=== PATIENT | male | born 1960 | race Caucasian/White ===

== ENCOUNTER 2017-04-23 21:14 | Emergency (ER) | payer MEDICARE, MEDICAID ==
[2017-04-23 21:35] VITALS: BP 144/87
[2017-04-23] MEDS ORDERED: Albuterol/Ipratropium NEB.SOL* Albuterol 2.5 MG/Ipratropium 0.5 MG 3 ML INH ONE (21:39)
[2017-04-23 22:01] LABS: Hematocrit 40 % (42-52); Hemoglobin 13.5 g/dl (14.0-18.0); Mean Corpuscular HGB Conc 34 g/dl (31-36); Mean Corpuscular Hemoglobin 29 pg (27-31); Mean Corpuscular Volume 87 fL (80-94); Mean Platelet Volume 8 um3 (7.4-10.4); Red Blood Count 4.61 10^6/ul (4.0-5.4); Red Cell Distribution Width 15 % (10.5-15); White Blood Count 7.2 10^3/ul (3.5-10.8)
[2017-04-23 22:03] LABS: Urine Bilirubin Negative (Negative); Urine Glucose 3+(>=500 mg/dL) (Negative); Urine Nitrite Negative (Negative)
[2017-04-23 22:11] LABS: ALT 7 U/L (7-52); AST 17 U/L (13-39); Albumin 4.5 g/dL (3.2-5.2); Alkaline Phosphatase 96 U/L (34-104); Anion Gap 11 mmol/L (2-11); BUN/Creatinine Ratio 8.1 (8-20); Blood Urea Nitrogen 8 mg/dL (6-24); CO2 Carbon Dioxide 22 mmol/L (22-32); Calcium 8.7 mg/dL (8.6-10.3); Chloride 98 mmol/L (101-111); EGFR African American 100.6 (>60); EGFR Non-African American 78.2 (>60); Globulin 2.9 g/dL (2-4); Glucose 241 mg/dL (70-100); Potassium 3.8 mmol/L (3.5-5.0); Sodium 131 mmol/L (133-145); Total Protein 7.4 g/dL (6.4-8.9)
[2017-04-23 22:14] LABS: Acetaminophen < 15 mcg/mL; Alcohol 156 mg/dL (<10); Salicylate < 2.50 mg/dL (<30)
[2017-04-23 22:17] LABS: Benzodiazepine Urine Screen None Detected (None Detect)
[2017-04-23 22:24] LABS: TSH (Thyroid Stimulating Horm) 2.04 mcIU/mL (0.34-5.60)
--- NOTE | 2017-04-24 00:57 | ED ---
Rio Rush Angela, scribed for Luis F Lew on 04/23/17 at 2133 . Psychiatric Complaint - HPI Summary HPI Summary: This pt is a 56 y/o male BIBA for a 941 presenting to [facility] c/o SI today. Pt notes his symptoms are aggravated because he "learned about his aunt, she's dying." His mother is also "about to ." He is unable to describe what he is feeling now when asked if he is depressed. He drinks beer, but not everyday. PMHx: bipolar disorder, diabetes. Pt currently takes prozac and diazepam. - History Of Current Complaint Chief Complaint: EDMentalHealth Time Seen by Provider: 04/23/17 21:23 Hx Obtained From: Patient Onset/Duration: Lasting Days Timing: Days Character: Depressed Aggravating Factor(s): Recent Stress Has Suicidal: Reports: Thoughts - Allergies/Home Medications Allergies/Adverse Reactions: Allergies Allergy/AdvReac Type Severity Reaction Status Date / Time Ibuprofen Allergy Unknown Unknown Verified 04/18/17 08:52 Reaction Details Lidocaine [From Lidoderm] Allergy Unknown Verified 04/18/17 08:52 Reaction Details PMH/Surg Hx/FS Hx/Imm Hx Endocrine/Hematology History: Reports: Hx Diabetes Cardiovascular History: Denies: Hx Pacemaker/ICD Sensory History: Denies: Hx Hearing Aid Psychiatric History: Reports: Hx Panic Disorder, Hx Bipolar Disorder, Other Psychiatric Issues/Disorders - Agoraphobia - Family History Known Family History: Positive: Cardiac Disease - Father: coronary artery disease, [place] at age 65, Diabetes - mother, Other - Brother: leukemia - Social History Alcohol Use: None Substance Use Type: Reports: None Substance Use Comment - Amount & Last Used: Tramadol Smoking Status (MU): Current Every Day Smoker Type: Cigarettes Amount Used/How Often: 2 PPD Have You Smoked in the Last Year: Yes Review of Systems Negative: Fever, Chills Eyes: Negative Negative: Chest Pain Negative: Shortness Of Breath Genitourinary: Negative Musculoskeletal: Negative Skin: Negative Positive: Depressed, Other - SI All Other Systems Reviewed And Are Negative: Yes Physical Exam Triage Information Reviewed: Yes Vital Signs On Initial Exam: Initial Vitals Temp Pulse Resp BP Pulse Ox 98.6 F 81 18 144/87 98 04/23/17 21:32 04/23/17 21:32 04/23/17 21:32 04/23/17 21:32 04/23/17 21:32 Vital Signs Reviewed: Yes Appearance: Positive: Well-Appearing, No Pain Distress Skin: Positive: Warm, Skin Color Reflects Adequate Perfusion, Dry Head/Face: Positive: Normal Head/Face Inspection Eyes: Positive: EOMI, KAYLEIGH ENT: Positive: Normal ENT inspection Neck: Positive: Supple, Nontender Respiratory/Lung Sounds: Positive: Breath Sounds Present, Other - wheezing on the left Cardiovascular: Positive: RRR, Pulses are Symmetrical in both Upper and Lower Extremities Abdomen Description: Positive: Nontender, Soft Bowel Sounds: Positive: Present Musculoskeletal: Positive: Normal, Strength/ROM Intact Neurological: Positive: Normal, Sensory/Motor Intact, Alert, Oriented to Person Place, Time Psychiatric: Positive: Depressed - depressed look Diagnostics - Laboratory Result Diagrams: 04/23/17 21:35 04/23/17 21:35 Lab Statement: Any lab studies that have been ordered have been reviewed, and results considered in the medical decision making process. Course/Dx - Course Assessment/Plan: Pt is a 56 y/o male BIBA for a 941 presenting to [facility] c/o SI today. Bloodwork was obtained. Serum alcohol of 156. Pt is medically cleared at 0013. Pt is pending MHE. Pt will be signed out at shift change, pending dispostion, awaiting MHE. - Differential Dx/Clinical Impression Provider Diagnosis: Suicidal ideation, Depression, Alcohol intoxication Discharge - Discharge Plan Condition: Stable Disposition: OTHER Discharge Disposition Comment: signed out at shift change, pending dispo, awaiting MHE. Referrals: Leroy Mcclendon MD [Primary Care Provider] - The documentation as recorded by the Rio pedraza Angela accurately reflects the service I personally performed and the decisions made by , Luis F Lew.
--- NOTE | 2017-04-24 01:30 | ED ---
Progress - Progress Note Progress Note: pt seen by mental health sent home in stable condition - Consult/PCP Time Called: 11:00 Course/Dx - Diagnoses Provider Diagnoses: Suicidal ideation, Depression, Alcohol intoxication
== END 2017-04-24 02:05 ==
LOC: ED 21:14
DX: R45.851 Suicidal ideations (principal); F32.9 Major depressive disorder, single episode, unspecified; F10.129 Alcohol abuse with intoxication, unspecified
CPT/HCPCS: 36415; 80053; 80307; 80320; 80329; 81003; 84443; 85025; 99284; A9270-GY; G0480

== ENCOUNTER → 2019-06-26 10:37 | Day surgery (SDC) | payer MEDICARE, MEDICAID ==
[~2019-06-26 10:37] MED LIST: Benzocaine/Butamben/Tetracain (CETACAINE - SINGLE USE) 5 gm TOPICAL ONE; Buffered Lidocaine 1% SYRIN* 1 ML/SYRINGE INTRADERM ONE; Dexamethasone IV* 4 MG/ML 1 ML (4 MG) ONE; DiMENhydriNATE IV* 50 MG/ML VIAL IV PUSH PRN; HYDROmorphone INJ1* 1 MG/ML SYRINGE IV PRN; Lactated Ringers 1000 ML Bag* 1,000 ML IV SCH; Levalbuterol 1.25MG/0.5ML NEB INH PRN; Levalbuterol 1.25MG/0.5ML NEB ONE; Midazolam* 1 MG/ML 5 ML VIAL (5 MG) ONE; Naloxone* 0.4 MG/ML 1 ML VIAL IV PRN; Neostigmine Methylsulfate* 3 MG/3 ML SYRINGE ONE; Ondansetron INJ* 2 MG/ML VIAL IV PRN; Ondansetron INJ* 2 MG/ML VIAL ONE; Propofol* 10 MG/ML 20 ML BTL ONE; Rocuronium* 10 MG/ML VIAL ONE; Scopolamine 1.5 mg* PATCH TRANSDERM PRN; Scopolamine PATCH Remove* 1 NOTE MISC PATCH OFF ONE; fentaNYL* 50 MCG/ML 2 ML VIAL (100 MCG VIAL) IV PRN; fentaNYL* 50 MCG/ML 2 ML VIAL (100 MCG VIAL) ONE
[2019-06-26 15:42] VITALS: BP 118/68
--- NOTE | 2019-06-26 16:51 | BRIEFOPN ---
Brief Operative/Procedure Note - Operation Details Pre-Op Diagnosis: PET positive l;ymph nodes, pulm nodules Post-Op Diagnosis: Malignancy, undiffentiated Procedures: Bronchoscopy/EBUS Surgeon(s)/Proceduralists: ishaan Anesthesia: [place]- Dr Deshpande Estimated Blood Loss: Negligable Findings: NO endobronchial lesion. Station 7, R4, L12 negative for metastatic disease. L4 positive for malignant cells Specimen(s)/Culture(s) Description: Cytology from lymph nodes Complications: None
--- NOTE | 2019-06-26 20:47 | PRO ---
BRONCHOSCOPY REPORT: DATE OF PROCEDURE: 06/26/19 PROCEDURE PERFORMED: Bronchoscopy with endobronchial ultrasound guided fine needle aspiration from mediastinal hilar nodes. PREPROCEDURAL DIAGNOSIS: PET positive lymph nodes pulmonary nodules. POSTPROCEDURAL DIAGNOSIS: Malignant cells noted in L4 node. ANESTHESIA: General anesthesia. ANESTHESIOLOGIST: Dr. Deshpande. DESCRIPTION OF PROCEDURE: Informed consent was obtained from the patient prior to the procedure after all the risks and benefits were thoroughly explained. The patient was intubated with size a 9.0 endotracheal tube. Appropriate time out was agreed on by attending staff prior to the procedure. Flexible Olympus bronchoscope was inserted through ET tube for airway inspection. The patient noted to have thin white secretions and were suctioned out. No endobronchial lesions were noted. Bronchoscope was then withdrawn and EBUS bronchoscope was inserted. Station 7 was mildly enlarged and was sampled with 2 passes. Rapid onsite evaluation revealed lymphatic tissue with no malignant cells. R4 was minimally enlarged and was sampled with 2 passes. Rapid onsite evaluation revealed lymphatic tissue with no malignant cells. R10 to 14 nodes were not enlarged and were not accessed. Bronchoscope was then advanced into the left bronchial tree and L12 was sampled with 1 pass. Rapid onsite evaluation revealed lymphatic tissue with no malignant cells. Bronchoscope was then advanced into L4 area and was sampled with 4 passes. Rapid onsite evaluation revealed malignant cells. Air dried cells were also prepared. Rest of the specimen was placed in formalin. The patient tolerated the procedure well. The patient was extubated and seen in Recovery in optimal condition. [id number]/[facility] #: [id number] [facility]
== END | disposition home or self-care (01) ==
LOC: OR 10:37
PROVIDERS: ATTEND Internal Medicine
DX: C77.1 Secondary and unspecified malignant neoplasm of intrathoracic lymph nodes (principal); J98.4 Other disorders of lung; J44.9 Chronic obstructive pulmonary disease, unspecified; K21.9 Gastro-esophageal reflux disease without esophagitis; E03.9 Hypothyroidism, unspecified; I10 Essential (primary) hypertension; E66.9 Obesity, unspecified; E11.9 Type 2 diabetes mellitus without complications; Z79.4 Long term (current) use of insulin; Z79.84 Long term (current) use of oral hypoglycemic drugs; F17.210 Nicotine dependence, cigarettes, uncomplicated; Z99.81 Dependence on supplemental oxygen; F41.8 Other specified anxiety disorders
CPT/HCPCS: 88172; 88173; 88305; 88341; 88342; 88360; A9270-GY; J1100; J2250; J2405; J2704; J2710; J3010

== ENCOUNTER 2019-09-17 04:05 | Emergency (ER) | payer MEDICARE, MEDICAID ==
[2019-09-17] MEDS ORDERED: HYDROmorphone INJ1* 1 MG/ML SYRINGE IV SLOW PU ONE (04:09)
--- NOTE | 2019-09-17 04:21 | ED ---
Back Pain - HPI Summary HPI Summary: This pt is a 58 Y/O M presenting to [facility] with a CC of spinal pain that extends from his cervical spine to his sacrum. He states that he has had the pain since his second round of cancer and states that the pain is constant after the radiation and chemotherapy. He states that he had chemo last week and radiation on 09/17/2019. He states that the pain is rated a 10/10 in severity and is constant. He also states that he feels a lump in the back of his throat that has been worsening recently. He denies any alleviating factors including his fentanyl patches and states that they wont even touch the pain. He had a PET scan in May which showed an upper L lobe mass and a L lymphadenopathy which was concerning for metastatic disease. He denies any recent fevers, chills , headaches, N/V, and SOB. He has a PMHx of L lobe CA and diabetic neuropathy. - History of Current Complaint Chief Complaint: EDBackInjuryPain Stated Complaint: BACK PAIN PER EMS Time Seen by Provider: 09/17/19 04:17 Hx Obtained From: Patient Onset/Duration: Gradual Onset, Still Present Timing: Constant Back Pain Location: Is Discrete @ - midline, states that the pain extends down his spine Severity Initially: Severe Severity Currently: Severe Pain Intensity: 10 Pain Scale Used: 0-10 Numeric Aggravating Symptom(s): Nothing Alleviating Symptom(s): Nothing Associated Signs And Symptoms: Positive: Negative - fevers, chills, headaches, N /V, and SOB., Other - Back pain,. Negative: Fever - Allergies/Home Medications Allergies/Adverse Reactions: Allergies Allergy/AdvReac Type Severity Reaction Status Date / Time nabumetone Allergy Severe Abdominal Verified 09/17/19 04:21 cramps and nausea ibuprofen Allergy Bleeding Verified 09/17/19 04:21 lidocaine [From Lidoderm] Allergy Rash Verified 09/17/19 04:21 PMH/Surg Hx/FS Hx/Imm Hx Endocrine/Hematology History: Reports: Hx Diabetes - on medication-Insulin dependent Cardiovascular History: Reports: Hx Hypertension - on medication, Other Cardiovascular Problems/Disorders - Dyslipidemia Denies: Hx Pacemaker/ICD Respiratory History: Reports: Hx Asthma, Hx Sleep Apnea, Other Respiratory Problems/Disorders - Abnormal CT, uses oxygen at night 2 l at night Denies: Hx Pulmonary Edema GI History: Reports: Hx Gastroesophageal Reflux Disease - on medication, Other GI Disorders - History of pancreatitis per H&P History: Reports: Hx Kidney Stones - 6 months ago-passed on own Denies: Hx Renal Disease, Other Problems/Disorders Musculoskeletal History: Reports: Hx Arthritis Denies: Other Musculoskeletal History Sensory History: Reports: Hx Contacts or Glasses - Glasses Denies: Hx Hearing Aid Opthamlomology History: Reports: Hx Contacts or Glasses - Glasses Neurological History: Reports: Hx Headaches, Hx Nerve Disease - Neuropathy Denies: Hx Migraine, Hx Seizures, Other Neuro Impairments/Disorders Psychiatric History: Reports: Hx Anxiety, Hx Depression, Hx Panic Disorder - FENTYNAL, Hx Bipolar Disorder, Other Psychiatric Issues/Disorders - Agoraphobia Denies: Hx of Violent Episodes Against Others - Cancer History Cancer Type, Location and Year: LUNG CA - Surgical History Surgery Procedure, Year, and Place: Cyst removed from back under local anesthesia Hx Anesthesia Reactions: No Infectious Disease History: No Infectious Disease History: Denies: Traveled Outside the [place] in Last 30 Days - Family History Known Family History: Positive: Cardiac Disease - Father: coronary artery disease, [place] at age 65, Diabetes - mother, Other - Brother: leukemia - Social History Alcohol Use: Weekly Alcohol Amount: 3-4 beers on weekend watching football Substance Use Type: Reports: None Substance Use Comment - Amount & Last Used: Tramadol Smoking Status (MU): Current Every Day Smoker Type: Cigarettes Amount Used/How Often: 5 cigarettes/day Have You Smoked in the Last Year: Yes Review of Systems Negative: Fever, Chills Negative: Shortness Of Breath Negative: Vomiting, Nausea Positive: Other - spinal pain Negative: Headache All Other Systems Reviewed And Are Negative: Yes Physical Exam - Summary Physical Exam Summary: Constitutional: Well-developed, Well-nourished, Alert. Mild distress secondary to pain Skin: Warm, Dry HENT: Normocephalic; Atraumatic Eyes: Conjunctiva normal Neck: Musculoskeletal ROM normal neck. (-) JVD, (-) Stridor, (-) Nuchal rigidity Cardio: Rhythm regular, rate normal, Heart sounds normal; Intact distal pulses; Radial pulses are 2+ and symmetric. (-) Murmur. Chest wall port to the L chest Pulmonary/Chest wall: Effort normal. (-) Respiratory distress, (-) Wheezes, (-) Rales Abd: Soft, (-) tenderness, (-) Distension, (-) Guarding, (-) Rebound Musculoskeletal: (-) Edema, +Cervical, thoracic, and lumbar midline tenderness. Lymph: (-) Cervical adenopathy Neuro: Alert, Oriented x3, strength 5/5 UE, LE, SILT, ambulates w steady gait. Psych: Mood and affect Normal Triage Information Reviewed: Yes Vital Signs On Initial Exam: Initial Vitals Temp Pulse Resp BP Pulse Ox 99.3 F 95 17 124/85 97 09/17/19 04:14 09/17/19 04:14 09/17/19 04:14 09/17/19 04:14 09/17/19 04:14 Vital Signs Reviewed: Yes Procedures - Sedation Patient Received Moderate/Deep Sedation with Procedure: No Diagnostics - Vital Signs Vital Signs Temp Pulse Resp BP Pulse Ox 09/17/19 04:14 99.3 F 95 17 124/85 97 - Laboratory Result Diagrams: 09/17/19 05:51 09/17/19 05:51 Lab Statement: Any lab studies that have been ordered have been reviewed, and results considered in the medical decision making process. - CT Lumbar Spine CT CT Interpretation Completed By: Radiologist Summary of CT Findings: No acute processes. ED physician has reviewed this report. Cervical CT CT Interpretation Completed By: Radiologist Summary of CT Findings: There is loss of intervertebral disc space noted at C6- C7. There are mild. endplate osteophytic changes noted. ED physician has reviewed this report. Thoracic CT CT Interpretation Completed By: Radiologist Summary of CT Findings: Unremarkable CT Spine. ED physician has reviewed this report. Re-Evaluation - Re-Evaluation First Eval Re-Evaluation Time: 04:45 Change: Unchanged Comment: still w pain, will try second dose dilaudid Second Eval Re-Evaluation Time: 05:40 Change: Improved - patient reported taking 12 tylenol on Monday, will send tylenol level, check INR and LFTs. Back Pain Course/Dx - Course Course Of Treatment: 58 y/o male w hx MIGUEL cancer followed by Dr. Adame on chemo and radiation p/w acute back pain worsening over 2 weeks. - PE w CTL midline tenderness. No recent spinal imaging. Most recent PET scan did not show bony mets in Nov. - check CT CTL spine given cancer to assess for mets/pathology. Given dilaudid 1mg here, will reasses. - CTs w/o abnormality, tylenol level normal, LFTs and INR wnl. Given short course oxycodone, will f/u w onc - Diagnoses Provider Diagnoses: Back pain, Lung cancer Discharge ED - Sign-Out/Discharge Documenting (check all that apply): Patient Departure - discharge - Discharge Plan Condition: Stable Disposition: HOME Prescriptions: Oxycodone TAB(NF) [Oxycodone HCl 10 MG] 10 mg PO Q6H PRN 3 Days #12 tab MDD 4 PRN Reason: Pain - Severe Patient Education Materials: Back Pain (ED) Referrals: Leroy Mcclendon MD [Primary Care Provider] - Additional Instructions: You were seen in the emergency department for back pain. Your CT scan did not show any evidence of any fractures. Please do not take more than 4 g of Tylenol per day. You can take oxycodone for severe pain, 10 mg every 6 hours. Please follow up with your oncologist month darren urine the ER today. Please follow up with your primary care doctor in next 2-3 days and return to emergency department for worsening pain, numbness or weakness of your extremities, bowel or bladder problems,or concerning symptoms. It was a pleasure taking care of you today. - Billing Disposition and Condition Condition: STABLE Disposition: Home - Attestation Statements Document Initiated by Harsha: Yes Documenting Scribe: Narinder Masters Provider For Whom Harsha is Documenting (Include Credential): Dinora Gusman MD Scribe Attestation: I, Narinder Masters, scribed for Dinora Gusman MD on 09/18/19 at 0707. Scribe Documentation Reviewed: Yes Provider Attestation: The documentation as recorded by the Narinder pedraza accurately reflects the service I personally performed and the decisions made by me, Dinora Gusman MD Status of Scribe Document: Viewed
[2019-09-17] MEDS ORDERED: HYDROmorphone INJ1* 1 MG/ML SYRINGE IV ONE (05:00)
--- OUTSIDE RECORDS SUMMARY | 2019-09-17 05:40 | XMS REPORT ---
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 [id number] disease, disease, unspecified unspecified Essential Essential Diagnosis Active Evi (primary) (primary) 2- Hai hypertensio hypertensio [id number] n n Other Other Diagnosis Active Evi chronic chronic 2-05 Hai pain pain [id number] 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, disorder, 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, recurrent, unspecified unspecified Gastro-esop Gastro-esop Diagnosis Active Evi hageal hageal 2- Hai reflux reflux [id number] disease disease without without esophagitis esophagitis 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 [id number] Low back Low back Diagnosis Active Evi pain pain Hai [id number] Hyperlipide Hyperlipide Diagnosis Active Evi hank, hank, Hai unspecified unspecified [id number] Hypothyroid Hypothyroid Diagnosis Active Evi ism, ism, Hai unspecified unspecified [id number] Respiratory treatments Respirator Resolve 2016-10-17 Chelsea ordered y d 2- 12:30:00 Son [id number] Pain frequent Pain Mgmt Resolve 2018-08-28 Chelsea pain d 2- 12:45:00 Son 13:13: [id number] 00 Pain knowledge/s Pain Mgmt Resolve 2015-09-09 Chelsea kill d 09-04 10:40:00 Son deficit: pt 13:13: [id number] 00 Pain severe pain Pain Mgmt Resolve 29 Chelsea d 2-05 12:45:00 Son 13:13: [id number] 00 Respiratory dyspnea Respirator Resolve 2016-10-17 Chelsea present y d 2- 12:30:00 Son 13:13: [id number] 00 Respiratory oxygen Respirator Resolve 2016-10-17 Chelsea treatments y d 2- 12:30:00 Son in home 13:13: [id number] 00 Respiratory knowledge/s Respirator Resolve 2015-09-16 Chelsea kill y d 2- 12:00:00 Son deficit: pt 13:13: [id number] 00 Respiratory lung sounds Respirator Resolve 2016-06-29 Chelsea deficit y d 2 13:03:00 Son 13:13: [id number] 00 Endo/Hugo knowledge/s Endo/Hugo Resolve 2015-09-16 Chelsea kill d 2- 12:00:00 Son deficit: pt 13:13: [id number] 00 Endo/Hugo diabetic Endo/Hugo Resolve 2016-06-29 Chelsea foot care d 2- 13:03:00 Son 13:13: [id number] 00 Nutrition knowledge/s Nutrition Resolve 2015-09-04 Chelsea kill d 2 13:13:00 Son deficit: pt 13:13: [id number] 00 Neuro anxiety Neuro/Emot Resolve 2016-08-02 Chelsea present ion d 2- 10:30:00 Son 13:13: [id number] 00 Neuro depressive Neuro/Emot Resolve 2016-08-02 Chelsea feelings ion d 2- 10:30:00 Son present 13:13: [id number] 00 Neuro knowledge/s Neuro/Emot Resolve 2015-09-16 Chelsea kill ion d 2- 12:00:00 Son deficit: pt 13:13: [id number] 00 Activity ADL Activity Resolve 2016-04-27 Chelsea assistance d 2- 11:15:00 Son required 13:13: [id number] 00 Activity knowledge/s Activity Resolve 2016-03-01 Chelsea kill d 2- 12:00:00 Son deficit: pt 13:13: [id number] 00 Safety fall risk Safety Resolve 2015-09-16 Chelsea factor d 2-05 12:00:00 Cline present 13:13: [id number] 00 Safety risk for Safety Resolve 2015-09-16 Chelsea hospitaliza d 2-05 12:00:00 Cline tion 13:13: [id number] 00 Medication oral med Meds Resolve 2016-08-02 Chelsea assistance d 2-05 10:30:00 Cline required 13:13: [id number] 00 Medication injectable Meds Resolve 2016-08-02 Chelsea med d 2-05 10:30:00 Cline assistance 13:13: [id number] required 00 Medication knowledge/s Meds Resolve 2016-06-29 Chelsea kill d 2-05 13:03:00 Son deficit: pt 13:13: [id number] 00 Medication potential Meds Resolve 2016-08-02 Chelsea clinically d 2- 10:30:00 Son significant 13:13: [id number] medication 00 issue Diagnoses knowledge/s Diagnoses Active Chelsea kill - Cline deficit: pt 13:13: [id number] 00 Pain knowledge/s Pain Mgmt Resolve 2015-09-16 Cherrise kill d 2- 12:00:00 Abbe deficit: pt 12:00: [id number] 00 Safety sanitation Safety Resolve 2016-03-01 Cherrise hazards d 2-17 12:00:00 Abbe present 12:00: [id number] 00 Safety risk for Safety Resolve 2016-03-01 Cherrise hospitaliza d 2-18 12:00:00 [place] tion 12:15: [id number] 00 Neuro knowledge/s Neuro/Emot Resolve 2016-08-16 Cherrise kill ion d 2- 12:45:00 [place] deficit: pt 13:29: [id number] Safety structural Safety Resolve 2016-03-01 Cherrise barriers d 2- 12:00:00 Abbe present 13:29: [id number] 57 Respiratory knowledge/s Respirator Resolve 2016-04-27 Chelsea kill y d 10-27 11:15:00 Son deficit: cg 09:40: [id number] 00 Pain frequent Pain Mgmt Resolve 2018-08-28 Chelsea pain d 11-03 12:45:00 Son 13:04: [id number] 00 Pain knowledge/s Pain Mgmt Resolve 2016-02-24 Chelsea kill d 11-03 13:35:00 Son deficit: pt 13:04: [id number] 00 Respiratory knowledge/s Respirator Resolve 2016-04-27 Chelsea kill y d 11-03 11:15:00 Son deficit: pt 13:04: [id number] 00 Safety fall risk Safety Resolve 2016-03-01 Chelsea factor d 11-03 12:00:00 Son present 13:04: [id number] 00 Endo/Hugo insulin Endo/Hugo Resolve 2016-10-17 Chelsea admn d 11-24 12:30:00 Son dependence 10:48: [id number] 00 Safety safety Safety Resolve 2016-03-01 Chelsea hazards d 12-22 12:00:00 Cline present 09:15: [id number] 00 Elimination constipatio Eliminatio Resolve 2016-03-01 Chelsea n n d 12-29 12:00:00 Son 13:33: [id number] 00 IV IV present IV Resolve 2016-01-26 Chelsea d 12-29 11:50:00 Son 13:33: [id number] 00 Integument skin Integument Resolve 2016-04-27 Anna integrity d 01-25 11:15:00 Regeczi risk 11:50: [id number] 00 Nutrition knowledge/s Nutrition Resolve 2016-03-01 Cherrise kill d 02-26 12:00:00 [place] deficit: pt 10:00: [id number] 00 Pain frequent Pain Mgmt Resolve 2018-08-28 Chelsea pain d 03-01 12:45:00 Son 12:00: [id number] 00 Nutrition knowledge/s Nutrition Resolve 2016-04-06 Neida kill d 03-23 14:54:00 Malnoske deficit: pt 13:30: RN 00 Endo/Hugo insulin Endo/Hugo Resolve 2016-10-17 Chelsea admn d 04-06 12:30:00 Cline dependence 14:54: [id number] 00 Nutrition changing Nutrition Resolve 2016-05-10 Chelsea weight/appe d 04-27 11:45:00 Son tite 11:15: [id number] 00 Nutrition knowledge/s Nutrition Resolve 2016-04-27 Chelsea kill d 04-27 11:15:00 Son deficit: pt 11:15: [id number] 00 Cardio hypertensio Cardiovasc Resolve 2016-09-20 Evi n ular d 08-02 10:00:00 Hai 10:30: [id number] 00 Respiratory lung sounds Respirator Resolve 2016-08-25 Evi deficit y d 08-02 10:30:00 Hai 10:30: [id number] 00 Respiratory CPAP Respirator Resolve 2016-10-17 Evi treatments y d 08-02 12:30:00 Hai in home 10:30: [id number] 00 Respiratory dyspnea Respirator Resolve 2016-10-17 Evi present y d 08-02 12:30:00 Hai 10:30: [id number] 00 Respiratory oxygen Respirator Resolve 2016-10-17 Evi treatments y d 08-02 12:30:00 Hai in home 10:30: [id number] 00 Integument knowledge/s Integument Resolve 2016-08-16 Evi kill d 08-02 12:45:00 Hai deficit: pt 10:30: [id number] 00 Medication knowledge/s Meds Resolve 2016-08-25 Evi kill d 08-02 10:30:00 Hai deficit: pt 10:30: [id number] 00 Neuro anxiety Neuro/Emot Resolve 2016-10-17 Evi present ion d 08-16 12:30:00 Hai 12:45: [id number] 00 Integument knowledge/s Integument Resolve 2016-08-25 Evi kill d 08-25 10:30:00 Hai deficit: pt 10:30: [id number] 00 Nutrition nutritional Nutrition Resolve 2016-08-25 Evi restriction d 08-25 10:30:00 Hai s 10:30: [id number] 00 Neuro knowledge/s Neuro/Emot Resolve 2016-2016-08-25 Evi kill ion d 08-25 10:30:00 Hai deficit: pt 10:30: [id number] 00 Medication oral med Meds Resolve 2016-08-25 Evi assistance d 08-25 10:30:00 Hai required 10:30: [id number] 00 Respiratory oxygen Respirator Unknown Evi treatments y 2-06 Hai in home 14:30: [id number] 00 Integument knowledge/s Integument Resolve 2016-09-05 Evi kill d 09-05 14:30:00 Hai deficit: pt 14:30: [id number] 00 Medication oral med Meds Resolve 2016-10-17 Evi assistance d 09-05 12:30:00 Hai required 14:30: [id number] 00 Medication knowledge/s Meds Resolve 2016-12-05 Evi kill d 09-05 17:00:00 Hai deficit: pt 14:30: [id number] 00 Respiratory lung sounds Respirator Resolve 2016-09-20 Evi deficit y d 2- 10:00:00 Hai 10:00: [id number] 00 Integument knowledge/s Integument Resolve 2016-10-17 Evi kill d 2- 12:30:00 Hai deficit: pt 10:00: [id number] 00 Integument other wound Integument Resolve 2016-10-17 Evi present d 2- 12:30:00 Hai 10:00: [id number] 00 Respiratory lung sounds Respirator Resolve 2018-10-09 Evi deficit y d 3-06 12:40:00 Hai 15:00: [id number] 00 Respiratory CPAP Respirator Unknown Evi treatments y 3-06 Hai in home 15:00: [id number] 00 Respiratory smoker Respirator Resolve 2016-10-17 Evi y d 3-06 12:30:00 Hai 15:00: [id number] 00 Respiratory nebulizer Respirator Unknown Evi treatment y 3-06 Hai in home 15:00: [id number] 00 Respiratory dyspnea Respirator Resolve 2016-11-07 Evi present y d 10-25 12:20:00 Hai 14:15: [id number] 00 Respiratory oxygen Respirator Unknown Evi treatments y 10-25 Hai in home 14:15: [id number] 00 Respiratory smoker Respirator Resolve 2016-11-07 Evi y d 10-25 12:20:00 Hai 14:15: [id number] 00 Integument other wound Integument Resolve 2016-10-25 Evi present d 10-25 14:15:00 Hai 14:15: [id number] 00 Nutrition nutritional Nutrition Resolve 2016-11-07 Evi restriction d 10-25 12:20:00 Hai s 14:15: [id number] 00 Neuro anxiety Neuro/Emot Resolve 2016-11-07 Evi present ion d 10-25 12:20:00 Hai 14:15: [id number] 00 Medication oral med Meds Resolve 2016-12-05 Evi assistance d 10-25 17:00:00 Hai required 14:15: [id number] 00 Medication potential Meds Resolve 2016-12-05 Evi clinically d 11-07 17:00:00 Hai significant 12:20: [id number] medication 00 issue Respiratory dyspnea Respirator Resolve 2016-11-21 Evi present y d 11-14 13:30:00 Hai 14:00: [id number] 00 Respiratory oxygen Respirator Unknown Evi treatments y 11-21 Hai in home 13:30: [id number] 00 Respiratory lung sounds Respirator Resolve 2018-10-09 Evi deficit y d 11-21 12:40:00 Hai 13:30: [id number] 00 Respiratory smoker Respirator Resolve 2016-11-21 Evi y d 11-21 13:30:00 Hai 13:30: [id number] 00 Respiratory nebulizer Respirator Unknown Evi treatment y 11-21 Hai in home 13:30: [id number] 00 Neuro anxiety Neuro/Emot Resolve 2016-12-25 Evi present ion d 11-21 13:30:00 Hai 13:30: [id number] 00 Respiratory oxygen Respirator Resolve 2018-09-18 Evi treatments y d 12-05 13:30:00 Hai in home 17:00: [id number] 00 Respiratory smoker Respirator Resolve 2016-12-05 Evi y d 12-05 17:00:00 Hai 17:00: [id number] 00 Respiratory nebulizer Respirator Resolve 2018-09-18 Evi treatment y d 12-05 13:30:00 Hai in home 17:00: [id number] 00 Endo/Hugo knowledge/s Endo/Hugo Resolve 2016-12-19 Evi kill d 12-05 13:00:00 Hai deficit: pt 17:00: [id number] 00 Medication knowledge/s Meds Resolve 2016-12-25 Evi kill d 12-19 13:30:00 Hai deficit: pt 13:00: [id number] 00 Respiratory dyspnea Respirator Resolve 2017-02-27 Evi present y d 12-25 12:30:00 Hai 13:30: [id number] 00 Integument other wound Integument Resolve 2017-01-02 Evi present d 12-25 11:50:00 Hai 13:30: [id number] 00 Medication knowledge/s Meds Resolve 2016-12-25 Evi kill d 12-25 13:30:00 Hai deficit: pt 13:30: [id number] 00 Respiratory smoker Respirator Resolve 2017-01-16 Evi y d 01-16 15:00:00 Hai 15:00: [id number] 00 Respiratory lung sounds Respirator Resolve 2017-02-13 Evi deficit y d 02-13 12:45:00 Hai 12:45: [id number] 00 Respiratory smoker Respirator Resolve 2017-02-13 Evi y d 02-13 12:45:00 Hai 12:45: [id number] 00 Respiratory smoker Respirator Resolve 2017-02-27 Evi y d 02-24 12:30:00 Hai 13:00: [id number] 00 Integument other wound Integument Resolve 2017-02-24 Evi present d 02-24 13:00:00 Hai 13:00: [id number] 00 Nutrition nutritional Nutrition Resolve 2017-04-03 Tammee restriction d - 12:25:00 Eric garcia 13:00: an 00 Integument other wound Integument Resolve 2017-05-01 Evi present d 04-25 12:15:00 Hai 13:00: [id number] 00 Neuro depressive Neuro/Emot Resolve 2017-05-01 Evi feelings ion d 04-25 12:15:00 Hai present 13:00: [id number] 00 Neuro anxiety Neuro/Emot Resolve 2017-05-01 Evi present ion d 04-25 12:15:00 Hai 13:00: [id number] 00 Respiratory lung sounds Respirator Resolve 2016-072017-05-01 Evi deficit y d 0- 12:15:00 Hai 12:15: [id number] 00 Respiratory smoker Respirator Resolve 2016-072017-06-12 Evi y d 1- 11:14:00 Hai 11:14: [id number] 00 Respiratory smoker Respirator Resolve 2016-072017-06-21 Evi y d 08-21 11:15:00 Hai 11:15: [id number] 00 Integument other wound Integument Resolve 2016-072017-06-21 Evi present d 08-21 11:15:00 Hai 11:15: [id number] 00 Respiratory lung sounds Respirator Resolve 2016-072017-06-26 Evi deficit y d 08-26 12:15:00 Hai 12:15: [id number] 00 Respiratory lung sounds Respirator Unknown 2016-07 Evi deficit y 2-11 Hai 12:20: [id number] 00 Respiratory smoker Respirator Resolve 2016-072017-08-03 Evi y d 2-28 11:30:00 Hai 12:10: [id number] 00 Respiratory lung sounds Respirator Resolve 2017-08-03 Evi deficit y d 1- 11:30:00 Hai 11:30: [id number] 00 Respiratory lung sounds Respirator Resolve 2017-08-07 Evi deficit y d 1- 10:20:00 Hai 10:20: [id number] 00 Respiratory smoker Respirator Resolve 2017-08-07 Evi y d 1-08 10:20:00 Hai 10:20: [id number] 00 Respiratory lung sounds Respirator Resolve 2017-2017-08-14 Evi deficit y d 1-15 11:30:00 Hai 11:30: [id number] 00 Respiratory smoker Respirator Resolve 2017-2017-08-14 Evi y d 1-15 11:30:00 Hai 11:30: [id number] 00 Integument other wound Integument Resolve 2017-2017-08-21 Evi present d 1- 10:50:00 Hai 10:50: [id number] 00 Respiratory smoker Respirator Resolve 2017-2017-09-04 Evi y d 1- 12:40:00 Hai 12:30: [id number] 00 Respiratory lung sounds Respirator Resolve 2017-09-11 Evi deficit y d 2-12 13:00:00 Hai 13:00: [id number] 00 Respiratory lung sounds Respirator Resolve 2017-09-20 Evi deficit y d 2-21 11:15:00 Hai 11:15: [id number] 00 Respiratory lung sounds Respirator Resolve 2017-2017-09-27 Evi deficit y d 2-28 11:45:00 Hai 11:45: [id number] 00 Respiratory lung sounds Respirator Resolve 2017-10-18 Evi deficit y d 3-21 11:00:00 Hai 11:00: [id number] 00 Respiratory smoker Respirator Resolve 2017-10-18 Evi y d 3-21 11:00:00 Hai 11:00: [id number] 00 Integument other wound Integument Resolve 2017-10-25 Evi present d 3-21 11:00:00 Hai 11:00: [id number] 00 Respiratory lung sounds Respirator Resolve 2018-10-09 Evi deficit y d 4-10 12:40:00 Hai 14:45: [id number] 00 Respiratory smoker Respirator Resolve 2017-2017-11-15 Evi y d 4-18 11:00:00 Hai 11:00: [id number] 00 Respiratory lung sounds Respirator Resolve 2017-2018-10-09 Evi deficit y d 4-25 12:40:00 Hai 13:40: [id number] 00 Respiratory smoker Respirator Resolve 2017-11-22 Evi y d 11-22 13:40:00 Hai 13:40: [id number] 00 Respiratory smoker Respirator Resolve 2017-12-06 Evi y d 12-06 13:15:00 Hai 13:15: [id number] 00 Respiratory lung sounds Respirator Resolve 2017-12-13 Evi deficit y d 12-13 13:00:00 Hai 13:00: [id number] 00 Respiratory lung sounds Respirator Resolve 2017-12-26 Evi deficit y d 12-20 12:05:00 Hai 13:15: [id number] 00 Integument other wound Integument Resolve 2017-12-26 Evi present d 12-20 12:05:00 Hai 13:15: [id number] 00 Respiratory lung sounds Respirator Resolve 2018-01-03 Evi deficit y d 06 12:38:00 Hai 12:38: [id number] 00 Respiratory lung sounds Respirator Resolve 2018-10-09 Evi deficit y d 6-13 12:40:00 Hai 15:00: [id number] 00 Respiratory smoker Respirator Resolve 2018-01-10 Evi y d 6-13 15:00:00 Hai 15:00: [id number] 00 Respiratory lung sounds Respirator Resolve 2018-01-24 Evi deficit y d 6- 13:10:00 Hai 13:10: [id number] 00 Nutrition nutritional Nutrition Resolve 2019-08-13 Evi restriction d 6 10:50:00 Hai s 13:10: [id number] 00 Safety sanitation Safety Resolve 2018-06-05 Evi hazards d 6- 10:35:00 Hai present 13:10: [id number] 00 Safety fall risk Safety Resolve 2018-02-19 Evi factor d 6 14:02:00 Hai present 13:10: [id number] 00 Safety risk for Safety Resolve 2018-10-30 Evi hospitaliza d 01-24 13:06:00 Hai tion 13:10: [id number] 00 Safety structural Safety Resolve 2018-02-19 Evi barriers d 01-24 14:02:00 Hai present 13:10: [id number] 00 Safety safety Safety Resolve 2018-02-19 Evi hazards d 01-24 14:02:00 Hai present 13:10: [id number] 00 Medication oral med Meds Resolve 2019-09-10 Evi assistance d 01-24 15:05:00 Hai required 13:10: [id number] 00 Medication injectable Meds Active Evi med 01-24 Hai assistance 13:10: [id number] 00 Respiratory lung sounds Respirator Resolve 2018-10-09 Evi deficit y d 01-29 12:40:00 Hai 13:45: [id number] 00 Respiratory smoker Respirator Resolve 2018-02-07 Evi y d 01-29 13:00:00 Hai 13:45: [id number] 00 Respiratory smoker Respirator Resolve 2018-03-01 Evi y d 02-19 11:42:00 Hai 14:02: [id number] 00 Integument other wound Integument Resolve 2018-03-21 Evi present d 02-19 15:30:00 Hai 14:02: [id number] 00 Respiratory smoker Respirator Resolve 2018-03-28 Evi y d 03-28 11:36:00 Hai 11:36: [id number] 00 Respiratory smoker Respirator Resolve 2018-04-03 Evi y d 04-03 14:00:00 Hai 14:00: [id number] 00 Respiratory smoker Respirator Resolve 2018-04-10 Evi y d 04-10 14:40:00 Hai 14:40: [id number] 00 Integument other wound Integument Resolve 2018-04-24 Evi present d 04-18 10:16:00 Hai 11:00: [id number] 00 Respiratory smoker Respirator Resolve 2017-072018-05-16 Evi y d 0 14:20:00 Hai 10:50: [id number] 00 Respiratory smoker Respirator Resolve 2017-072018-05-29 Evi y d 11:30:00 Hai 11:30: [id number] 00 Respiratory smoker Respirator Resolve 2017-072018-06-05 Evi y d 08-05 10:35:00 Hai 10:35: [id number] 00 Safety safety Safety Resolve 2017-072018-06-05 Evi hazards d 08-05 10:35:00 Hai present 10:35: [id number] 00 Integument other wound Integument Resolve 2017-072018-06-26 Evi present d 08-19 15:15:00 Hai 11:12: [id number] 00 Respiratory smoker Respirator Resolve 2017-072018-06-26 Eiv y d 08-26 15:15:00 Hai 15:15: [id number] 00 Respiratory smoker Respirator Resolve 2017-072018-07-03 Evi y d 09-03 11:13:00 Hai 11:13: [id number] 00 Respiratory smoker Respirator Resolve 2017-072018-07-17 Evi y d 09-10 11:38:00 Hai 11:20: [id number] 00 Respiratory smoker Respirator Resolve 2017-072018-07-23 Evi y d 09-23 10:00:00 Hai 10:00: [id number] 00 Integument other wound Integument Resolve 2018-08-14 Evi present d 08-14 15:44:00 Hai 15:44: [id number] 00 Pain frequent Pain Mgmt Resolve 2018-08-28 Evi pain d 08-25 12:45:00 Hai 09:33: [id number] 56 Pain severe pain Pain Mgmt Resolve 2018-08-28 Evi d 08-25 12:45:00 Hai 09:33: [id number] 56 Integument other wound Integument Resolve 2018-08-28 Evi present d 08-25 12:45:00 Hai 09:33: [id number] 56 Respiratory smoker Respirator Resolve 2018-08-28 Evi y d 08-28 12:45:00 Hai 12:45: [id number] 00 Respiratory smoker Respirator Resolve 2018-09-04 Evi y d 09-04 11:30:00 Hai 11:30: [id number] 00 Respiratory smoker Respirator Resolve 2018-09-18 Evi y d 2- 13:30:00 Hai 16:40: [id number] 00 Pain severe pain Pain Mgmt Resolve 2018-09-25 Evi d 2- 10:30:00 Hai 13:30: [id number] 00 Neuro anxiety Neuro/Emot Unknown Evi present ion 09-18 Hai 13:30: [id number] 00 Respiratory oxygen Respirator Resolve 2018-10-16 Evi treatments y d 3 11:45:00 Hai in home 10:45: [id number] 00 Respiratory smoker Respirator Resolve 2018-2018-10-09 Evi y d 3- 12:40:00 Hai 10:45: [id number] 00 Respiratory nebulizer Respirator Resolve 2018-10-16 Evi treatment y d - 11:45:00 Hai in home 10:45: [id number] 00 Respiratory lung sounds Respirator Resolve 2018-10-16 Evi deficit y d 10-16 11:45:00 Hai 11:45: [id number] 00 Respiratory smoker Respirator Resolve 2018-10-16 Evi y d 10-16 11:45:00 Hai 11:45: [id number] 00 Integument other wound Integument Resolve 2018-10-23 Evi present d 10-16 11:20:00 Hai 11:45: [id number] 00 Respiratory nebulizer Respirator Resolve 2018-10-23 Evi treatment y d 10-23 11:20:00 Hai in home 11:20: [id number] 00 Safety safety Safety Resolve 2018-10-23 Evi hazards d 10-23 11:20:00 Hai present 11:20: [id number] 00 Respiratory lung sounds Respirator Unknown Evi deficit y 10-30 Hai 13:06: [id number] 00 Respiratory oxygen Respirator Resolve 2018-11-20 Evi treatments y d 11-06 10:35:00 Hai in home 11:31: [id number] 00 Respiratory smoker Respirator Resolve 2018-2018-11-06 Evi y d 11-06 11:31:00 Hai 11:31: [id number] 00 Respiratory nebulizer Respirator Resolve 2018-11-20 Evi treatment y d 11-06 10:35:00 Hai in home 11:31: [id number] 00 Safety risk for Safety Resolve 2018-11-12 Evi hospitaliza d 11-06 10:00:00 Hai tion 11:31: [id number] 00 Respiratory smoker Respirator Resolve 2018-11-20 Evi y d 11-12 10:35:00 Hai 10:00: [id number] 00 Respiratory lung sounds Respirator Resolve 2018-11-20 Evi deficit y d 11-20 10:35:00 Hai 10:35: [id number] 00 Safety risk for Safety Resolve 2018-11-27 Evi hospitaliza d 11-20 11:00:00 Hai tion 10:35: [id number] 00 Pain severe pain Pain Mgmt Resolve 2018-12-04 Evi d 11-27 11:35:00 Hai 11:00: [id number] 00 Respiratory oxygen Respirator Resolve 2018-12-12 Evi treatments y d 11-27 09:08:00 Hai in home 11:00: [id number] 00 Respiratory lung sounds Respirator Resolve 2018-12-04 Evi deficit y d 11-27 11:35:00 Hai 11:00: [id number] 00 Respiratory nebulizer Respirator Resolve 2018-12-12 Evi treatment y d 11-27 09:08:00 Hai in home 11:00: [id number] 00 Respiratory smoker Respirator Resolve 2018-12-04 Evi y d 12-04 11:35:00 Hai 11:35: [id number] 00 Safety risk for Safety Resolve 2018-12-12 Evi hospitaliza d 12-04 09:08:00 Hai tion 11:35: [id number] 00 Cardio hypertensio Cardiovasc Resolve 2018-12-18 Evi n ular d 12-12 14:00:00 Hai 09:08: [id number] 00 Respiratory lung sounds Respirator Resolve 2018-12-12 Evi deficit y d 12-12 09:08:00 Hai 09:08: [id number] 00 Respiratory smoker Respirator Resolve 2019-2018-12-12 Evi y d 5-15 09:08:00 Hai 09:08: [id number] 00 Integument other wound Integument Resolve 2018-12-18 Evi present d 5-15 14:00:00 Hai 09:08: [id number] 00 Safety risk for Safety Resolve 2019-01-01 Evi hospitaliza d - 13:20:00 Hai tion 14:00: [id number] 00 Cardio hypertensio Cardiovasc Resolve 2019-01-01 Evi n ular d - 13:20:00 Hai 10:30: [id number] 00 Respiratory oxygen Respirator Resolve 2018-2019-01-08 Evi treatments y d 12-25 11:00:00 Hai in home 10:30: [id number] 00 Respiratory lung sounds Respirator Resolve 2019-01-01 Evi deficit y d 12-25 13:20:00 Hai 10:30: [id number] 00 Respiratory nebulizer Respirator Resolve 2019-01-08 Evi treatment y d 12-25 11:00:00 Hai in home 10:30: [id number] 00 Cardio hypertensio Cardiovasc Resolve 2019-01-15 Evi n ular d 6- 12:05:00 Hai 11:00: [id number] 00 Respiratory smoker Respirator Resolve 2019-01-08 Evi y d 6-11 11:00:00 Hai 11:00: [id number] 00 Respiratory lung sounds Respirator Resolve 2019-01-08 Evi deficit y d 6-11 11:00:00 Hai 11:00: [id number] 00 Safety risk for Safety Resolve 2019-01-15 Evi hospitaliza d 6- 12:05:00 Hai tion 11:00: [id number] 00 Respiratory lung sounds Respirator Unknown Evi deficit y 01-15 Hai 12:05: [id number] 00 Respiratory nebulizer Respirator Resolve 2019-01-22 Evi treatment y d 6-18 11:45:00 Hai in home 12:05: [id number] 00 Respiratory oxygen Respirator Resolve 2019-01-22 Evi treatments y d 01-22 11:45:00 Hai in home 11:45: [id number] 00 Respiratory smoker Respirator Resolve 2019-01-22 Evi y d 6 11:45:00 Hai 11:45: [id number] 00 Respiratory lung sounds Respirator Resolve 2019-02-05 Evi deficit y d 01-29 11:30:00 Hai 11:40: [id number] 00 Respiratory smoker Respirator Resolve 2019-02-05 Evi y d 01-29 11:30:00 Hai 11:40: [id number] 00 Respiratory nebulizer Respirator Resolve 2019-02-05 Evi treatment y d 01-29 11:30:00 Hai in home 11:40: [id number] 00 Pain severe pain Pain Mgmt Resolve 2019-02-12 Evi d - 13:30:00 Hai 16:30: [id number] 00 Respiratory oxygen Respirator Resolve 2019-02-19 Evi treatments y d 7 14:00:00 Hai in home 13:30: [id number] 00 Respiratory nebulizer Respirator Resolve 2019-02-19 Evi treatment y d 7 14:00:00 Hai in home 13:30: [id number] 00 Integument other wound Integument Resolve 2019-02-12 Evi present d 02-12 13:30:00 Hai 13:30: [id number] 00 Safety fall risk Safety Resolve 2019-02-12 Evi factor d 02-12 13:30:00 Hai present 13:30: [id number] 00 Safety risk for Safety Resolve 2019-07-02 Evi hospitaliza d 02-12 11:45:00 Hai tion 13:30: [id number] 00 Respiratory smoker Respirator Resolve 2019-02-19 Evi y d 02-19 14:00:00 Hai 14:00: [id number] 00 Integument knowledge/s Integument Resolve 2019-02-27 Evi kill d 02-19 11:00:00 Hai deficit: pt 14:00: [id number] 00 Respiratory nebulizer Respirator Unknown Evi treatment y 7-31 Hai in home 11:00: [id number] 00 Respiratory smoker Respirator Resolve 2019-03-05 Evi y d 8 13:00:00 Hai 13:00: [id number] 00 Respiratory lung sounds Respirator Resolve 2019-04-09 Evi deficit y d 8 14:30:00 Hai 13:00: [id number] Endo/Hugo glucose Endo/Hugo Resolve 2019-03-19 Evi tolerance d 03-05 13:30:00 Hai problem 13:00: [id number] 00 Endo/Hugo knowledge/s Endo/Hugo Resolve 2019-03-19 Evi kill d 03-05 13:30:00 Hai deficit 13:00: [id number] hypo/hyperg 00 lycemia: pt Integument other wound Integument Resolve 2019-03-05 Evi present d 03-05 13:00:00 Hai 13:00: [id number] 00 Respiratory oxygen Respirator Resolve 2019-03-26 Evi treatments y d 8-13 16:55:00 Hai in home 13:00: [id number] 00 Respiratory nebulizer Respirator Resolve 2019-03-26 Evi treatment y d 8-13 16:55:00 Hai in home 13:00: [id number] 00 Respiratory oxygen Respirator Resolve 2019-04-09 Evi treatments y d 9 14:30:00 Hai in home 12:15: [id number] 00 Respiratory nebulizer Respirator Resolve 2019-04-09 Evi treatment y d 9 14:30:00 Hai in home 12:15: [id number] 00 Endo/Hugo knowledge/s Endo/Hugo Resolve 2019-06-25 Evi kill d 04-02 12:00:00 Hai deficit: pt 12:15: [id number] 00 Endo/Hugo knowledge/s Endo/Hugo Resolve 2019-06-25 Evi kill d 04-02 12:00:00 Hai deficit 12:15: [id number] hypo/hyperg 00 lycemia: pt Respiratory smoker Respirator Resolve 2019-04-09 Evi y d 9-10 14:30:00 Hai 14:30: [id number] 00 Endo/Hugo glucose Endo/Hugo Resolve 2019-04-09 Evi tolerance d 9-10 14:30:00 Hai problem 14:30: [id number] Respiratory oxygen Respirator Resolve 2019-04-23 Evi treatments y d 9-16 14:15:00 Hai in home 14:00: [id number] 00 Respiratory smoker Respirator Resolve 2019-04-23 Evi y d 9-16 14:15:00 Hai 14:00: [id number] 00 Respiratory nebulizer Respirator Resolve 2019-04-23 Evi treatment y d 9- 14:15:00 Hai in home 14:00: [id number] 00 Endo/Hugo anti-coagul Endo/Hugo Resolve 2019-04-23 Evi ation d 9-16 14:15:00 Hai therapy 14:00: [id number] 00 Endo/Hugo glucose Endo/Hugo Resolve 2019-04-23 Evi tolerance d 24 14:15:00 Hai problem 14:15: [id number] 00 Respiratory lung sounds Respirator Resolve 2018-072019-05-07 Evi deficit y d 0-01 15:20:00 Hai 11:06: [id number] 00 Respiratory smoker Respirator Resolve 2018-072019-05-07 Evi y d 0-01 15:20:00 Hai 11:06: [id number] 00 Respiratory oxygen Respirator Resolve 2018-072019-05-15 Evi treatments y d 0-08 10:00:00 Hai in home 15:20: [id number] 00 Respiratory nebulizer Respirator Resolve 2018-072019-05-15 Evi treatment y d 0-08 10:00:00 Ahi in home 15:20: [id number] 00 Respiratory lung sounds Respirator Resolve 2018-072019-05-15 Evi deficit y d 0-16 10:00:00 Hai 10:00: [id number] 00 Respiratory lung sounds Respirator Resolve 2018-072019-05-28 Evi deficit y d 0-23 13:15:00 Hai 09:30: [id number] 00 Respiratory oxygen Respirator Resolve 2018-072019-08-13 Evi treatments y d 0-29 10:50:00 Hai in home 13:15: [id number] 00 Respiratory nebulizer Respirator Resolve 2018-072019-08-13 Evi treatment y d 0-29 10:50:00 Hai in home 13:15: [id number] 00 Respiratory smoker Respirator Resolve 2018-072019-05-28 Evi y d 0-29 13:15:00 Hai 13:15: [id number] 00 Respiratory lung sounds Respirator Resolve 2018-072019-06-04 Evi deficit y d 1-05 12:00:00 Hai 12:00: [id number] 00 Respiratory lung sounds Respirator Resolve 2018-072019-06-25 Evi deficit y d 1-11 12:00:00 Hai 11:00: [id number] 00 Respiratory smoker Respirator Resolve 2018-072019-06-18 Evi y d 1-11 12:45:00 Hai 11:00: [id number] 00 Integument other wound Integument Resolve 2018-072019-06-18 Evi present d 1-11 12:45:00 Hai 11:00: [id number] 00 Safety fall risk Safety Resolve 2018-072019-06-25 Evi factor d 1-11 12:00:00 Hai present 11:00: [id number] 00 Respiratory smoker Respirator Resolve 2018-072019-06-25 Evi y d 1- 12:00:00 Hai 12:00: [id number] 00 Neuro anxiety Neuro/Emot Resolve 2018-072019-09-10 Evi present ion d 1- 15:05:00 Hai 12:00: [id number] Neuro memory Neuro/Emot Resolve 2018-072019-09-10 Evi deficit ion d 1- 15:05:00 Hai needing 12:00: [id number] supervision 00 Respiratory smoker Respirator Resolve 2018-072019-07-30 Evi y d 2-03 11:00:00 Hai 11:45: [id number] 00 Respiratory lung sounds Respirator Resolve 2018-072019-07-30 Evi deficit y d 2-11 11:00:00 Hai 13:05: [id number] 00 Safety risk for Safety Resolve 2018-072019-07-10 [facility] d 2- 13:05:00 Hai tion 13:05: [id number] 00 Safety risk for Safety Resolve 2018-072019-07-23 [facility] d 09-16 11:00:00 Hai tion 15:00: [id number] 00 Safety risk for Safety Resolve 2018-072019-07-30 [facility] d 11:00:00 Hai tion 11:00: [id number] 00 Safety risk for Safety Resolve 2019-08-13 [facility] d 08-06 10:50:00 Hai tion 12:30: [id number] Medication potential Meds Active Evi clinically 08-06 Hai significant 12:30: [id number] medication 00 issue Cardio hypertensio Cardiovasc Resolve 2019-08-27 Evi n ular d 08-13 11:10:00 Hai 10:50: [id number] 00 Respiratory knowledge/s Respirator Resolve 2019-08-13 Evi kill y d 08-13 10:50:00 Hai deficit: pt 10:50: [id number] 00 Respiratory lung sounds Respirator Resolve 2019-08-13 Evi deficit y d 08-13 10:50:00 Hai 10:50: [id number] 00 Respiratory smoker Respirator Resolve 2019-08-13 Evi y d 08-13 10:50:00 Hai 10:50: [id number] 00 Integument other wound Integument Resolve 2019-09-04 Evi present d 08-13 11:25:00 Hai 10:50: [id number] 00 Neuro depressive Neuro/Emot Resolve 2019-09-10 Evi feelings ion d 08-13 15:05:00 Hai present 10:50: [id number] 00 Medication knowledge/s Meds Active Evi kill 08-13 Hai deficit: pt 10:50: [id number] 00 Respiratory oxygen Respirator Resolve 2019-09-10 Evi treatments y d 08-20 15:05:00 Hai in home 13:20: [id number] 00 Respiratory knowledge/s Respirator Active Evi kill y 08-20 Hai deficit: pt 13:20: [id number] 00 Respiratory lung sounds Respirator Active Evi deficit y 08-20 Hai 13:20: [id number] 00 Respiratory smoker Respirator Resolve 2019-09-10 Evi y d 08-20 15:05:00 Hai 13:20: [id number] 00 Respiratory nebulizer Respirator Active Evi treatment y 08-20 Hai in home 13:20: [id number] 00 Endo/Hugo glucose Endo/Hugo Resolve 2019-09-04 Evi tolerance d 08-20 11:25:00 Hai problem 13:20: [id number] 00 Endo/Hugo knowledge/s Endo/Hugo Resolve 2019-09-04 Evi kill d 08-20 11:25:00 Hai deficit: pt 13:20: [id number] 00 Endo/Hugo knowledge/s Endo/Hugo Resolve 2019-09-04 Evi kill d 08-20 11:25:00 Hai deficit 13:20: [id number] hypo/hyperg 00 lycemia: pt Neuro impaired Neuro/Emot Resolve 2019-09-10 Evi decision-ma ion d 08-27 15:05:00 Hai zainab 11:10: [id number] 00 Endo/Hugo knowledge/s Endo/Hugo Active Evi kill - Hai deficit: pt 15:05: [id number] Endo/Hugo knowledge/s Endo/Hugo Active Evi kill - Hai deficit 15:05: [id number] hypo/hyperg 00 lycemia: pt Allergies, Adverse Reactions, Alerts Allergy Allergy Type Status Severity Reaction(s) Onset Inactive Treating Comments Name Date Date Clinician ibuprofen Base Active Unknown Nausea and Cari Ingredient vomiting 09-03 Mercado Lidopatch Medication Active Unknown Rash, Hives Cari Name ID 09-03 Mercado Medications Ordered Filled Start Stop Current Ordering Indication Dosage Frequency Signature Comments Components Medication Medication Date Date Medication? Clinician (SIG) Name Name omeprazole omeprazole No Darlow 40 mg Unknown 40 mg 40 mg 2- Leroy DUMONT capsule,del capsule,del ayed ayed release release hydroCHLORO hydroCHLORO Darlow 12.5 mg Unknown thiazide thiazide 09-04 MD,Leroy 12.5 mg 12.5 mg tablet tablet cetirizine cetirizine Darlow 10 mg Unknown 10 mg 10 mg 09-04 ,Leroy tablet tablet albuterol albuterol No Darlow 1 amp Unknown sulfate 2.5 sulfate 2.5 09-04 MD,Leroy mg/3 mL mg/3 mL (0.083 %) (0.083 %) solution solution for for nebulizatio nebulizatio n n Singulair Singulair No Darlow 10 mg Unknown 10 mg 10 mg 09-04 MD,Leroy tablet tablet metoclopram metoclopram Darlow 5 mg Unknown sincere 5 mg sincere 5 mg 09-04 ,Leroy tablet tablet Lipitor 80 Lipitor 80 No Darlow 80 mg Unknown mg tablet mg tablet 09-04 MD,Leroy lisinopril lisinopril Darlow 20 mg Unknown 10 mg 10 mg 09-04 ,Leroy (2 abs) tablet tablet traMADol 50 traMADol 50 Darlow 50 mg Unknown mg tablet mg tablet 09-04 ,Leroy traMADol ER traMADol ER Darlow 200 mg Unknown 200 mg 200 mg 09-04 ,Leroy capsule capsule 24h,extende 24h,extende d d release(25- release(25- 75) 75) methocarbam methocarbam Darlow 500 mg Unknown ol 500 mg ol 500 mg 09-04 ,Leroy tablet tablet ProAir HFA ProAir HFA No Darlow 2 puffs Unknown 90 90 09-04 ,Leroy mcg/actuati mcg/actuati on aerosol on aerosol inhaler inhaler Pataday 0.2 Pataday 0.2 Darlow 1 drop Unknown % eye drops % eye drops 09-04 ,Leroy senna 8.6 senna 8.6 Darlow 8,6 mg Unknown mg tablet mg tablet 09-04 ,Leroy mupirocin 2 mupirocin 2 2017- No Darlow 1 Unknown % topical % topical 09-04 ,Leory ointment ointment betamethaso betamethaso 2017- No Darlow 1 Unknown ne valerate ne valerate 09-04 ,Leroy 0.1 % 0.1 % topical topical cream cream metFORMIN metFORMIN 2018- No Darlow 1000 mg Unknown 1,000 mg 1,000 mg 09-04 ,Leroy tablet tablet Lyrica 75 Lyrica 75 2015- No Darlow 75 mg Unknown mg capsule mg capsule 09-04 ,Leroy HumaLOG HumaLOG 2016- No Darlow 5- 10 Unknown KwikPen KwikPen 09-04 ,Leroy units (U-100) (U-100) Insulin 100 Insulin 100 unit/mL unit/mL subcutaneou subcutaneou s s Lantus Lantus No Darlow 6- Unknown U-100 U-100 09-04 ,Leroy units Insulin 100 Insulin 100 unit/mL unit/mL subcutaneou subcutaneou s solution s solution benzonatate benzonatate 2017- No Darlow 200 mg Unknown 200 mg 200 mg 09-04 ,Leroy capsule capsule Symbicort Symbicort No Darlow 2 puffs Unknown 160 mcg-4.5 160 mcg-4.5 09-04 MD,Leroy mcg/actuati mcg/actuati on HFA on HFA aerosol aerosol inhaler inhaler FLUoxetine FLUoxetine 2015- No Darlow 40 mg Unknown 40 mg 40 mg 09-04 ,Leroy capsule capsule oxygen oxygen 2015- No Darlow 2 liter Unknown permeable permeable 09-04 ,Leroy lens ceiling cleaner reed cleaner liquid liquid FLUoxetine FLUoxetine No Darlow 3 caps Unknown 20 mg 20 mg 11-19 MD,Leroy (60 mg) capsule capsule Invokana Invokana 2018- No Darlow 100 mg Unknown 100 mg 100 mg 11-19 ,Leroy tablet tablet Benadryl 25 Benadryl 25 No Darlow 1-2 Unknown mg capsule mg capsule 01-26 ,Leroy tabs Oxygen Oxygen No Darlow 2 lpm Unknown 01-25 ,Leroy traMADol ER traMADol ER 2016- No [place] one Unknown 300 mg 300 mg 03-10 Hugo DUMONT daily capsule 24 capsule 24 hr,extended hr,extended release release metoclopram metoclopram 2017- No Darlow 1 tab Unknown sincere 5 mg sincere 5 mg 09-04 ,Leroy tablet tablet diazePAM 5 diazePAM 5 No Darlow 1 tab Unknown mg tablet mg tablet 04-15 ,Leroy amoxicillin amoxicillin 2015-07 No Darlow 1 Unknown [id number] 08-09 ,Leroy mg-potassiu mg-potassiu m m clavulanate clavulanate 125 mg 125 mg tablet tablet Lyrica 100 Lyrica 100 2015-07 No [place] Unknown Unknown mg capsule mg capsule 08-06 ,Hugo amoxicillin amoxicillin No Darlow 875/125 Unknown [id number] 08-16 ,Leroy mg mg-potassiu mg-potassiu m m clavulanate clavulanate 125 mg 125 mg tablet tablet cephALEXin cephALEXin No Darlow 500mg Unknown 500 mg 500 mg 08-26 ,Leroy capsule capsule lyrica lyrica 2016- No [place] 100mg Unknown 09-05 Hugo DUMONT methocarbam methocarbam No Darlow 750mg Unknown ol 750 mg ol 750 mg 08-16 ,Leroy tablet tablet Lyrica 150 Lyrica 150 No [place] 150mg Unknown mg capsule mg capsule 10-21 Hugo DUMONT cap Lantus Lantus 2018- No Darlow 07-21 Unknown U-100 U-100 04-04 ,Leroy units Insulin 100 Insulin 100 unit/mL unit/mL subcutaneou subcutaneou s solution s solution Nicorette 2 Nicorette 2 2016-07- No Darlow 1 piece Unknown mg gum mg gum 09-10 ,Leroy Duragesic Duragesic 2017- No [place] 12mcg Unknown 12 mcg/hr 12 mcg/hr 01-09 Hugo DUMONT transdermal transdermal patch patch hydrocortis hydrocortis No Darlow Unknown Unknown one 1 % one 1 % 03-14 Leroy DUMONT topical topical ointment ointment Durages Durages 2018- No [place] Unknown Unknown 25 mcg/hr 25 mcg/hr 04-26 12 Hugo DUMONT transdermal transdermal patch patch lisinopril lisinopril No Darlow Unknown Unknown 20 mg 20 mg 10-07 MD,Leroy tablet tablet Colace 100 Colace 100 2018- No Darlow Unknown Unknown mg capsule mg capsule 10-07 ,Leroy Colace 100 Colace 100 2018- No Darlow Unknown Unknown mg capsule mg capsule 10-10- ,Leroy Colace 100 Colace 100 No Darlow Unknown Unknown mg capsule mg capsule 11-20 ,Leroy glimepiride glimepiride No Darlow Unknown Unknown 1 mg tablet 1 mg tablet 11-20 MD,Leroy triamcinolo triamcinolo 2018- No Darlow Unknown Unknown ne ne 01-08- ,Leroy acetonide acetonide 0.025 % 0.025 % topical topical cream cream Lyrica 75 Lyrica 75 2018- No [place] Unknown Unknown mg capsule mg capsule 01-22- Hugo DUMONT Lyrica 100 Lyrica 100 2018- No [place] Unknown Unknown mg capsule mg capsule 02-06-16 Hugo DUMONT Fluocinonid Fluocinonid No Yentzer Unknown Unknown e-E 0.05 % e-E 0.05 % 01-29 Shravan DUMONT A topical topical cream cream ketoconazol ketoconazol No [place] Unknown Unknown e 2 % e 2 % 01-29 Shravan DUMONT A shampoo shampoo Lantus Lantus 2018- No Darlow Unknown Unknown U-100 U-100 02-15 07-30 ,Leroy Insulin 100 Insulin 100 unit/mL unit/mL subcutaneou subcutaneou s solution s solution metFORMIN metFORMIN No Darlow Unknown Unknown 1,000 mg 1,000 mg 02-15 MD,Leroy tablet tablet Lantus Lantus No Darlow Unknown Unknown U-100 U-100 02-26 MD,Leroy Insulin 100 Insulin 100 unit/mL unit/mL subcutaneou subcutaneou s solution s solution metFORMIN metFORMIN No Darlow Unknown Unknown 1,000 mg 1,000 mg 02-26 MD,Leroy tablet tablet Aspir-Low Aspir-Low No Darlow Unknown Unknown 81 mg 81 mg 8- MD,Leroy tablet,anna tablet,anna yed release yed release Lyrica 150 Lyrica 150 No [place] Unknown Unknown mg capsule mg capsule 04-15 Hugo DUMONT Spiriva Spiriva 2018-07 No Samantha Unknown Unknown Respimat Respimat -11 ,Citlali 2.5 2.5 mcg/actuati mcg/actuati on solution on solution for for inhalation inhalation fentaNYL 12 fentaNYL 12 2018-07 Yes [place] Unknown Unknown mcg/hr mcg/hr 2-13 Hugo DUMONT transdermal transdermal patch patch OLANZapine OLANZapine 2019- Yes Bael Unknown Unknown 10 mg 10 mg 08-20 MD,Honorio tablet tablet dexAMETHaso dexAMETHaso 2019- Yes Bael Unknown Unknown ne 4 mg ne 4 mg 08-13 MD,Honorio tablet tablet ondansetron ondansetron Yes Bael Unknown Unknown 4 mg 4 mg -20 MD,Honorio disintegrat disintegrat ing tablet ing tablet prochlorper prochlorper Yes Bael Unknown Unknown azine azine -20 MD,Honorio maleate 10 maleate 10 mg tablet mg tablet dexAMETHaso dexAMETHaso Yes Bael Unknown Unknown ne 4 mg ne 4 mg -14 MD,Honorio tablet tablet OLANZapine OLANZapine Yes Bael Unknown Unknown 10 mg 10 mg -14 MD,Honorio tablet tablet Lantus Lantus Yes Darlow Unknown Unknown U-100 U-100 08-20 MD,Leroy Insulin 100 Insulin 100 unit/mL unit/mL subcutane subcutaneou s solution s solution oxyCODONE 5 oxyCODONE 5 2020- Yes Bael Unknown Unknown mg tablet mg tablet 08-20 MD,Honorio magnesium magnesium 2019- 2020- Yes Bael Unknown Unknown oxide oxide 08-20 MD,Honorio magnesium magnesium 2019- Yes Bael Unknown Unknown oxide oxide 2- MD,Honorio Vital Signs Vital Name Observation Time Observation Value Comments SYSTOLIC mm[Hg] 2019-09-11 18:10:21 138 mm[Hg] mm[Hg] Method: Sit SYSTOLIC mm[Hg] 2019-08-14 18:09:53 170 mm[Hg] mm[Hg] Method: Stand DIASTOLIC mm[Hg] 2019-09-11 18:10:21 60 mm[Hg] mm[Hg] Method: Sit DIASTOLIC mm[Hg] 2019-08-14 18:09:53 88 mm[Hg] mm[Hg] Method: Stand PULSE 2019-09-11 18:10:21 79 /min /min RESP RATE 2019-09-11 18:10:21 16 /min /min TEMP 2019-09-11 18:10:21 98.3 [degF] Procedures This patient has no known procedures. Results This patient has no known results.
--- OUTSIDE RECORDS SUMMARY | 2019-09-17 05:40 | XMS REPORT ---
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, disease, unspecified unspecified Essential Essential Diagnosis Active Evi (primary) (primary) 2- Hai hypertensio hypertensio [id number] n n Other Other Diagnosis Active Evi chronic chronic 2-05 Hai pain pain [id number] 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, disorder, 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, recurrent, unspecified unspecified Gastro-esop Gastro-esop Diagnosis Active Evi hageal hageal 2- Hai reflux reflux [id number] disease disease without without esophagitis esophagitis 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 [id number] Low back Low back Diagnosis Active Evi pain pain Hai [id number] Hyperlipide Hyperlipide Diagnosis Active Evi hank, hank, Hai unspecified unspecified [id number] Hypothyroid Hypothyroid Diagnosis Active Evi ism, ism, Hai unspecified unspecified [id number] Respiratory treatments Respirator Resolve 2016-10-17 Chelsea ordered y d 2- 12:30:00 Son [id number] Pain frequent Pain Mgmt Resolve 2018-08-28 Chelsea pain d 2- 12:45:00 Son 13:13: [id number] 00 Pain knowledge/s Pain Mgmt Resolve 2015-09-09 [place] kill d 09-04 10:40:00 Son deficit: pt 13:13: [id number] 00 Pain severe pain Pain Mgmt Resolve 29 Chelsea d 2-05 12:45:00 Son 13:13: [id number] 00 Respiratory dyspnea Respirator Resolve 2016-10-17 Chelsea present y d 2- 12:30:00 Son 13:13: [id number] 00 Respiratory oxygen Respirator Resolve 2016-10-17 Chelsea treatments y d 2- 12:30:00 Son in home 13:13: [id number] 00 Respiratory knowledge/s Respirator Resolve 2015-09-16 Chelsea kill y d 2- 12:00:00 Son deficit: pt 13:13: [id number] 00 Respiratory lung sounds Respirator Resolve 2016-06-29 Chelsea deficit y d 2 13:03:00 Son 13:13: [id number] 00 Endo/Hugo knowledge/s Endo/Hugo Resolve 2015-09-16 [place] kill d 2- 12:00:00 Son deficit: pt 13:13: [id number] 00 Endo/Hugo diabetic Endo/Hugo Resolve 2016-06-29 Chelsea foot care d 2- 13:03:00 Son 13:13: [id number] 00 Nutrition knowledge/s Nutrition Resolve 2015-09-04 [place] kill d 2 13:13:00 Son deficit: pt 13:13: [id number] 00 Neuro anxiety Neuro/Emot Resolve 2016-08-02 Chelsea present ion d 2- 10:30:00 Son 13:13: [id number] 00 Neuro depressive Neuro/Emot Resolve 2016-08-02 Chelsea feelings ion d 2- 10:30:00 Son present 13:13: [id number] 00 Neuro knowledge/s Neuro/Emot Resolve 2015-09-16 Chelsea kill ion d 2- 12:00:00 Son deficit: pt 13:13: [id number] 00 Activity ADL Activity Resolve 2016-04-27 Chelsea assistance d 2- 11:15:00 Son required 13:13: [id number] 00 Activity knowledge/s Activity Resolve 2016-03-01 [place] kill d 2- 12:00:00 Son deficit: pt 13:13: [id number] 00 Safety fall risk Safety Resolve 2015-09-16 Chelsea factor d 2-05 12:00:00 Cline present 13:13: [id number] 00 Safety risk for Safety Resolve 2015-09-16 [place] hospitaliza d 2-05 12:00:00 Cline tion 13:13: [id number] 00 Medication oral med Meds Resolve 2016-08-02 [place] assistance d 2-05 10:30:00 Cline required 13:13: [id number] 00 Medication injectable Meds Resolve 2016-08-02 Chelsea med d 2-05 10:30:00 Cline assistance 13:13: [id number] 00 Medication knowledge/s Meds Resolve 2016-06-29 [place] kill d 2-05 13:03:00 Son deficit: pt 13:13: [id number] 00 Medication potential Meds Resolve 2016-08-02 Chelsea clinically d 2- 10:30:00 Son significant 13:13: [id number] medication 00 issue Diagnoses knowledge/s Diagnoses Active Chelsea kill - Cline deficit: pt 13:13: [id number] 00 Pain knowledge/s Pain Mgmt Resolve 2015-09-16 Cherrise kill d 2- 12:00:00 [place] deficit: pt 12:00: [id number] 00 Safety sanitation Safety Resolve 2016-03-01 Cherrise hazards d 2-17 12:00:00 Abbe present 12:00: [id number] 00 Safety risk for Safety Resolve 2016-03-01 Cherrise hospitaliza d 2-18 12:00:00 [place] tion 12:15: [id number] 00 Neuro knowledge/s Neuro/Emot Resolve 2016-08-16 Cherrise kill ion d 2- 12:45:00 [place] deficit: pt 13:29: [id number] 57 Safety structural Safety Resolve 2016-03-01 Cherrise barriers d 2- 12:00:00 [place] present 13:29: [id number] 57 Respiratory knowledge/s Respirator Resolve 2016-04-27 [place] kill y d 10-27 11:15:00 Son deficit: cg 09:40: [id number] 00 Pain frequent Pain Mgmt Resolve 2018-08-28 Chelsea pain d 11-03 12:45:00 Son 13:04: [id number] 00 Pain knowledge/s Pain Mgmt Resolve 2016-02-24 [place] kill d 11-03 13:35:00 Son deficit: pt 13:04: [id number] 00 Respiratory knowledge/s Respirator Resolve 2016-04-27 [place] kill y d 11-03 11:15:00 Son deficit: pt 13:04: [id number] 00 Safety fall risk Safety Resolve 2016-03-01 [place] factor d 11-03 12:00:00 Son present 13:04: [id number] 00 Endo/Hugo insulin Endo/Hugo Resolve 2016-10-17 [place] admn d 11-24 12:30:00 Son dependence 10:48: [id number] 00 Safety safety Safety Resolve 2016-03-01 Chelsea hazards d 12-22 12:00:00 Cline present 09:15: [id number] 00 Elimination constipatio Eliminatio Resolve 2016-03-01 Chelsea n n d 12-29 12:00:00 Son 13:33: [id number] 00 IV IV present IV Resolve 2016-01-26 Chelsea d 12-29 11:50:00 Son 13:33: [id number] 00 Integument skin Integument Resolve 2016-04-27 Anna integrity d 01-25 11:15:00 Regeczi risk 11:50: [id number] 00 Nutrition knowledge/s Nutrition Resolve 2016-03-01 Cherrise kill d 02-26 12:00:00 Abbe deficit: pt 10:00: [id number] 00 Pain frequent Pain Mgmt Resolve 2018-08-28 [place] pain d 03-01 12:45:00 Son 12:00: [id number] 00 Nutrition knowledge/s Nutrition Resolve 2016-04-06 Neida kill d 03-23 14:54:00 [place] deficit: pt 13:30: RN 00 Endo/Hugo insulin Endo/Hugo Resolve 2016-10-17 [place] admn d 04-06 12:30:00 Cline dependence 14:54: [id number] 00 Nutrition changing Nutrition Resolve 2016-05-10 Chelsea weight/appe d 04-27 11:45:00 Son tite 11:15: [id number] 00 Nutrition knowledge/s Nutrition Resolve 2016-04-27 [place] kill d 04-27 11:15:00 Son deficit: pt 11:15: [id number] 00 Cardio hypertensio Cardiovasc Resolve 2016-09-20 Evi n ular d 08-02 10:00:00 Hai 10:30: [id number] 00 Respiratory lung sounds Respirator Resolve 2016-08-25 Evi deficit y d 08-02 10:30:00 Hai 10:30: [id number] 00 Respiratory CPAP Respirator Resolve 2016-10-17 Evi treatments y d 08-02 12:30:00 Hai in home 10:30: [id number] 00 Respiratory dyspnea Respirator Resolve 2016-10-17 Evi present y d 08-02 12:30:00 Hai 10:30: [id number] 00 Respiratory oxygen Respirator Resolve 2016-10-17 Evi treatments y d 08-02 12:30:00 Hai in home 10:30: [id number] 00 Integument knowledge/s Integument Resolve 2016-08-16 Evi kill d 08-02 12:45:00 Hai deficit: pt 10:30: [id number] 00 Medication knowledge/s Meds Resolve 2016-08-25 Evi kill d 08-02 10:30:00 Hai deficit: pt 10:30: [id number] 00 Neuro anxiety Neuro/Emot Resolve 2016-10-17 Evi present ion d 08-16 12:30:00 Hai 12:45: [id number] 00 Integument knowledge/s Integument Resolve 2016-08-25 Evi kill d 08-25 10:30:00 Hai deficit: pt 10:30: [id number] 00 Nutrition nutritional Nutrition Resolve 2016-08-25 Evi restriction d 08-25 10:30:00 Hai s 10:30: [id number] 00 Neuro knowledge/s Neuro/Emot Resolve 2016-2016-08-25 Evi kill ion d 08-25 10:30:00 Hai deficit: pt 10:30: [id number] 00 Medication oral med Meds Resolve 2016-08-25 Evi assistance d 08-25 10:30:00 Hai required 10:30: [id number] 00 Respiratory oxygen Respirator Unknown Evi treatments y 2-06 Hai in home 14:30: [id number] 00 Integument knowledge/s Integument Resolve 2016-09-05 Evi kill d 09-05 14:30:00 Hai deficit: pt 14:30: [id number] 00 Medication oral med Meds Resolve 2016-10-17 Evi assistance d 09-05 12:30:00 Hai required 14:30: [id number] 00 Medication knowledge/s Meds Resolve 2016-12-05 Evi kill d 09-05 17:00:00 Hai deficit: pt 14:30: [id number] 00 Respiratory lung sounds Respirator Resolve 2016-09-20 Evi deficit y d 2- 10:00:00 Hai 10:00: [id number] 00 Integument knowledge/s Integument Resolve 2016-10-17 Evi kill d 2- 12:30:00 Hai deficit: pt 10:00: [id number] 00 Integument other wound Integument Resolve 2016-10-17 Evi present d 2- 12:30:00 Hai 10:00: [id number] 00 Respiratory lung sounds Respirator Resolve 2018-10-09 Evi deficit y d 3-06 12:40:00 Hai 15:00: [id number] 00 Respiratory CPAP Respirator Unknown Evi treatments y 3-06 Hai in home 15:00: [id number] 00 Respiratory smoker Respirator Resolve 2016-10-17 Evi y d 3-06 12:30:00 Hai 15:00: [id number] 00 Respiratory nebulizer Respirator Unknown Evi treatment y 3-06 Hai in home 15:00: [id number] 00 Respiratory dyspnea Respirator Resolve 2016-11-07 Evi present y d 10-25 12:20:00 Hai 14:15: [id number] 00 Respiratory oxygen Respirator Unknown Evi treatments y 10-25 Hai in home 14:15: [id number] 00 Respiratory smoker Respirator Resolve 2016-11-07 Evi y d 10-25 12:20:00 Hai 14:15: [id number] 00 Integument other wound Integument Resolve 2016-10-25 Evi present d 10-25 14:15:00 Hai 14:15: [id number] 00 Nutrition nutritional Nutrition Resolve 2016-11-07 Evi restriction d 10-25 12:20:00 Hai s 14:15: [id number] 00 Neuro anxiety Neuro/Emot Resolve 2016-11-07 Evi present ion d 10-25 12:20:00 Hai 14:15: [id number] 00 Medication oral med Meds Resolve 2016-12-05 Evi assistance d 10-25 17:00:00 Hai required 14:15: [id number] 00 Medication potential Meds Resolve 2016-12-05 Evi clinically d 11-07 17:00:00 Hai significant 12:20: [id number] medication 00 issue Respiratory dyspnea Respirator Resolve 2016-11-21 Evi present y d 11-14 13:30:00 Hai 14:00: [id number] 00 Respiratory oxygen Respirator Unknown Evi treatments y 11-21 Hai in home 13:30: [id number] 00 Respiratory lung sounds Respirator Resolve 2018-10-09 Evi deficit y d 11-21 12:40:00 Hai 13:30: [id number] 00 Respiratory smoker Respirator Resolve 2016-11-21 Evi y d 11-21 13:30:00 Hai 13:30: [id number] 00 Respiratory nebulizer Respirator Unknown Evi treatment y 11-21 Hai in home 13:30: [id number] 00 Neuro anxiety Neuro/Emot Resolve 2016-12-25 Evi present ion d 11-21 13:30:00 Hai 13:30: [id number] 00 Respiratory oxygen Respirator Resolve 2018-09-18 Evi treatments y d 12-05 13:30:00 Hai in home 17:00: [id number] 00 Respiratory smoker Respirator Resolve 2016-12-05 Evi y d 12-05 17:00:00 Hai 17:00: [id number] 00 Respiratory nebulizer Respirator Resolve 2018-09-18 Evi treatment y d 12-05 13:30:00 Hai in home 17:00: [id number] 00 Endo/Hugo knowledge/s Endo/Hugo Resolve 2016-12-19 Evi kill d 12-05 13:00:00 Hai deficit: pt 17:00: [id number] 00 Medication knowledge/s Meds Resolve 2016-12-25 Evi kill d 12-19 13:30:00 Hai deficit: pt 13:00: [id number] 00 Respiratory dyspnea Respirator Resolve 2017-02-27 Evi present y d 12-25 12:30:00 Hai 13:30: [id number] 00 Integument other wound Integument Resolve 2017-01-02 Evi present d 12-25 11:50:00 Hai 13:30: [id number] 00 Medication knowledge/s Meds Resolve 2016-12-25 Evi kill d 12-25 13:30:00 Hai deficit: pt 13:30: [id number] 00 Respiratory smoker Respirator Resolve 2017-01-16 Evi y d 01-16 15:00:00 Hai 15:00: [id number] 00 Respiratory lung sounds Respirator Resolve 2017-02-13 Evi deficit y d 02-13 12:45:00 Hai 12:45: [id number] 00 Respiratory smoker Respirator Resolve 2017-02-13 Evi y d 02-13 12:45:00 Hai 12:45: [id number] 00 Respiratory smoker Respirator Resolve 2017-02-27 Evi y d 02-24 12:30:00 Hai 13:00: [id number] 00 Integument other wound Integument Resolve 2017-02-24 Evi present d 02-24 13:00:00 Hai 13:00: [id number] 00 Nutrition nutritional Nutrition Resolve 2017-04-03 Tammee restriction d - 12:25:00 Eric garcia 13:00: an 00 Integument other wound Integument Resolve 2017-05-01 Evi present d 04-25 12:15:00 Hai 13:00: [id number] 00 Neuro depressive Neuro/Emot Resolve 2017-05-01 Evi feelings ion d 04-25 12:15:00 Hai present 13:00: [id number] 00 Neuro anxiety Neuro/Emot Resolve 2017-05-01 Evi present ion d 04-25 12:15:00 Hai 13:00: [id number] 00 Respiratory lung sounds Respirator Resolve 2016-072017-05-01 Evi deficit y d 0- 12:15:00 Hai 12:15: [id number] 00 Respiratory smoker Respirator Resolve 2016-072017-06-12 Evi y d 1- 11:14:00 Hai 11:14: [id number] 00 Respiratory smoker Respirator Resolve 2016-072017-06-21 Evi y d 08-21 11:15:00 Hai 11:15: [id number] 00 Integument other wound Integument Resolve 2016-072017-06-21 Evi present d 08-21 11:15:00 Hai 11:15: [id number] 00 Respiratory lung sounds Respirator Resolve 2016-072017-06-26 Evi deficit y d 08-26 12:15:00 Hai 12:15: [id number] 00 Respiratory lung sounds Respirator Unknown 2016-07 Evi deficit y 2-11 Hai 12:20: [id number] 00 Respiratory smoker Respirator Resolve 2016-072017-08-03 Evi y d 2-28 11:30:00 Hai 12:10: [id number] 00 Respiratory lung sounds Respirator Resolve 2017-08-03 Evi deficit y d 1- 11:30:00 Hai 11:30: [id number] 00 Respiratory lung sounds Respirator Resolve 2017-08-07 Evi deficit y d 1- 10:20:00 Hai 10:20: [id number] 00 Respiratory smoker Respirator Resolve 2017-08-07 Evi y d 1-08 10:20:00 Hai 10:20: [id number] 00 Respiratory lung sounds Respirator Resolve 2017-2017-08-14 Evi deficit y d 1-15 11:30:00 Hai 11:30: [id number] 00 Respiratory smoker Respirator Resolve 2017-2017-08-14 Evi y d 1-15 11:30:00 Hai 11:30: [id number] 00 Integument other wound Integument Resolve 2017-2017-08-21 Evi present d 1- 10:50:00 Hai 10:50: [id number] 00 Respiratory smoker Respirator Resolve 2017-2017-09-04 Evi y d 1- 12:40:00 Hai 12:30: [id number] 00 Respiratory lung sounds Respirator Resolve 2017-09-11 Evi deficit y d 2-12 13:00:00 Hai 13:00: [id number] 00 Respiratory lung sounds Respirator Resolve 2017-09-20 Evi deficit y d 2-21 11:15:00 Hai 11:15: [id number] 00 Respiratory lung sounds Respirator Resolve 2017-2017-09-27 Evi deficit y d 2-28 11:45:00 Hai 11:45: [id number] 00 Respiratory lung sounds Respirator Resolve 2017-10-18 Evi deficit y d 3-21 11:00:00 Hai 11:00: [id number] 00 Respiratory smoker Respirator Resolve 2017-10-18 Evi y d 3-21 11:00:00 Hai 11:00: [id number] 00 Integument other wound Integument Resolve 2017-10-25 Evi present d 3-21 11:00:00 Hai 11:00: [id number] 00 Respiratory lung sounds Respirator Resolve 2018-10-09 Evi deficit y d 4-10 12:40:00 Hai 14:45: [id number] 00 Respiratory smoker Respirator Resolve 2017-2017-11-15 Evi y d 4-18 11:00:00 Hai 11:00: [id number] 00 Respiratory lung sounds Respirator Resolve 2017-2018-10-09 Evi deficit y d 4-25 12:40:00 Hai 13:40: [id number] 00 Respiratory smoker Respirator Resolve 2017-11-22 Evi y d 11-22 13:40:00 Hai 13:40: [id number] 00 Respiratory smoker Respirator Resolve 2017-12-06 Evi y d 12-06 13:15:00 Hai 13:15: [id number] 00 Respiratory lung sounds Respirator Resolve 2017-12-13 Evi deficit y d 12-13 13:00:00 Hai 13:00: [id number] 00 Respiratory lung sounds Respirator Resolve 2017-12-26 Evi deficit y d 12-20 12:05:00 Hai 13:15: [id number] 00 Integument other wound Integument Resolve 2017-12-26 Evi present d 12-20 12:05:00 Hai 13:15: [id number] 00 Respiratory lung sounds Respirator Resolve 2018-01-03 Evi deficit y d 06 12:38:00 Hai 12:38: [id number] 00 Respiratory lung sounds Respirator Resolve 2018-10-09 Evi deficit y d 6-13 12:40:00 Hai 15:00: [id number] 00 Respiratory smoker Respirator Resolve 2018-01-10 Evi y d 6-13 15:00:00 Hai 15:00: [id number] 00 Respiratory lung sounds Respirator Resolve 2018-01-24 Evi deficit y d 6- 13:10:00 Hai 13:10: [id number] 00 Nutrition nutritional Nutrition Resolve 2019-08-13 Evi restriction d 6 10:50:00 Hai s 13:10: [id number] 00 Safety sanitation Safety Resolve 2018-06-05 Evi hazards d 6- 10:35:00 Hai present 13:10: [id number] 00 Safety fall risk Safety Resolve 2018-02-19 Evi factor d 6 14:02:00 Hai present 13:10: [id number] 00 Safety risk for Safety Resolve 2018-10-30 Evi hospitaliza d 01-24 13:06:00 Hai tion 13:10: [id number] 00 Safety structural Safety Resolve 2018-02-19 Evi barriers d 01-24 14:02:00 Hai present 13:10: [id number] 00 Safety safety Safety Resolve 2018-02-19 Evi hazards d 01-24 14:02:00 Hai present 13:10: [id number] 00 Medication oral med Meds Active Evi assistance 01-24 Hai required 13:10: [id number] 00 Medication injectable Meds Active Evi med 01-24 Hai assistance 13:10: [id number] required 00 Respiratory lung sounds Respirator Resolve 2018-10-09 Evi deficit y d 01-29 12:40:00 Hai 13:45: [id number] 00 Respiratory smoker Respirator Resolve 2018-02-07 Evi y d 01-29 13:00:00 Hai 13:45: [id number] 00 Respiratory smoker Respirator Resolve 2018-03-01 Evi y d 02-19 11:42:00 Hai 14:02: [id number] 00 Integument other wound Integument Resolve 2018-03-21 Evi present d 02-19 15:30:00 Hai 14:02: [id number] 00 Respiratory smoker Respirator Resolve 2018-03-28 Evi y d 03-28 11:36:00 Hai 11:36: [id number] 00 Respiratory smoker Respirator Resolve 2018-04-03 Evi y d 04-03 14:00:00 Hai 14:00: [id number] 00 Respiratory smoker Respirator Resolve 2018-04-10 Evi y d 04-10 14:40:00 Hai 14:40: [id number] 00 Integument other wound Integument Resolve 2018-04-24 Evi present d 04-18 10:16:00 Hai 11:00: [id number] 00 Respiratory smoker Respirator Resolve 2017-072018-05-16 Evi y d 0 14:20:00 Hai 10:50: [id number] 00 Respiratory smoker Respirator Resolve 2017-072018-05-29 Evi y d 11:30:00 Hai 11:30: [id number] 00 Respiratory smoker Respirator Resolve 2017-072018-06-05 Evi y d 08-05 10:35:00 Hai 10:35: [id number] 00 Safety safety Safety Resolve 2017-072018-06-05 Evi hazards d 08-05 10:35:00 Hai present 10:35: [id number] 00 Integument other wound Integument Resolve 2017-072018-06-26 Evi present d 08-19 15:15:00 Hai 11:12: [id number] 00 Respiratory smoker Respirator Resolve 2017-072018-06-26 Evi y d 08-26 15:15:00 Hai 15:15: [id number] 00 Respiratory smoker Respirator Resolve 2017-072018-07-03 Evi y d 09-03 11:13:00 Hai 11:13: [id number] 00 Respiratory smoker Respirator Resolve 2017-072018-07-17 Evi y d 09-10 11:38:00 Hai 11:20: [id number] 00 Respiratory smoker Respirator Resolve 2017-072018-07-23 Evi y d 09-23 10:00:00 Hai 10:00: [id number] 00 Integument other wound Integument Resolve 2018-08-14 Evi present d 08-14 15:44:00 Hai 15:44: [id number] 00 Pain frequent Pain Mgmt Resolve 2018-08-28 Evi pain d 08-25 12:45:00 Hai 09:33: [id number] 56 Pain severe pain Pain Mgmt Resolve 2018-08-28 Evi d 08-25 12:45:00 Hai 09:33: [id number] 56 Integument other wound Integument Resolve 2018-08-28 Evi present d 08-25 12:45:00 Hai 09:33: [id number] 56 Respiratory smoker Respirator Resolve 2018-08-28 Evi y d 08-28 12:45:00 Hai 12:45: [id number] 00 Respiratory smoker Respirator Resolve 2018-09-04 Evi y d 09-04 11:30:00 Hai 11:30: [id number] 00 Respiratory smoker Respirator Resolve 2018-09-18 Evi y d 09-10 13:30:00 Hai 16:40: [id number] 00 Pain severe pain Pain Mgmt Resolve 2018-09-25 Evi d 2-19 10:30:00 Hai 13:30: [id number] 00 Neuro anxiety Neuro/Emot Unknown Evi present ion 09-18 Hai 13:30: [id number] 00 Respiratory oxygen Respirator Resolve 2018-10-16 Evi treatments y d 3-05 11:45:00 Hai in home 10:45: [id number] 00 Respiratory smoker Respirator Resolve 2018-10-09 Evi y d 3-05 12:40:00 Hai 10:45: [id number] 00 Respiratory nebulizer Respirator Resolve 2018-10-16 Evi treatment y d - 11:45:00 Hai in home 10:45: [id number] 00 Respiratory lung sounds Respirator Resolve 2018-10-16 Evi deficit y d 3 11:45:00 Hai 11:45: [id number] 00 Respiratory smoker Respirator Resolve 2018-10-16 Evi y d 3 11:45:00 Hai 11:45: [id number] 00 Integument other wound Integument Resolve 2018-10-23 Evi present d 10-16 11:20:00 Hai 11:45: [id number] 00 Respiratory nebulizer Respirator Resolve 2018-10-23 Evi treatment y d 10-23 11:20:00 Hai in home 11:20: [id number] 00 Safety safety Safety Resolve 2018-10-23 Evi hazards d 10-23 11:20:00 Hai present 11:20: [id number] 00 Respiratory lung sounds Respirator Unknown Evi deficit y 10-30 Hia 13:06: [id number] 00 Respiratory oxygen Respirator Resolve 2018-11-20 Evi treatments y d 11-06 10:35:00 Hai in home 11:31: [id number] 00 Respiratory smoker Respirator Resolve 2018-2018-11-06 Evi y d 11-06 11:31:00 Hai 11:31: [id number] 00 Respiratory nebulizer Respirator Resolve 2018-11-20 Evi treatment y d 11-06 10:35:00 Hai in home 11:31: [id number] 00 Safety risk for Safety Resolve 2018-11-12 Evi hospitaliza d 11-06 10:00:00 Hai tion 11:31: [id number] 00 Respiratory smoker Respirator Resolve 2018-11-20 Evi y d 11-12 10:35:00 Hai 10:00: [id number] 00 Respiratory lung sounds Respirator Resolve 2018-11-20 Evi deficit y d 11-20 10:35:00 Hai 10:35: [id number] 00 Safety risk for Safety Resolve 2018-11-27 Evi hospitaliza d 11-20 11:00:00 Hai tion 10:35: [id number] 00 Pain severe pain Pain Mgmt Resolve 2018-12-04 Evi d 11-27 11:35:00 Hai 11:00: [id number] 00 Respiratory oxygen Respirator Resolve 2018-12-12 Evi treatments y d 11-27 09:08:00 Hai in home 11:00: [id number] 00 Respiratory lung sounds Respirator Resolve 2018-12-04 Evi deficit y d 11-27 11:35:00 Hai 11:00: [id number] 00 Respiratory nebulizer Respirator Resolve 2018-12-12 Evi treatment y d 11-27 09:08:00 Hai in home 11:00: [id number] 00 Respiratory smoker Respirator Resolve 2018-12-04 Evi y d 12-04 11:35:00 Hai 11:35: [id number] 00 Safety risk for Safety Resolve 2018-12-12 Evi hospitaliza d 12-04 09:08:00 Hai tion 11:35: [id number] 00 Cardio hypertensio Cardiovasc Resolve 2018-12-18 Evi n ular d 12-12 14:00:00 Hai 09:08: [id number] 00 Respiratory lung sounds Respirator Resolve 2018-12-12 Evi deficit y d 12-12 09:08:00 Hai 09:08: [id number] 00 Respiratory smoker Respirator Resolve 2018-12-12 Evi y d 5-15 09:08:00 Hai 09:08: [id number] 00 Integument other wound Integument Resolve 2018-12-18 Evi present d 5-15 14:00:00 Hai 09:08: [id number] 00 Safety risk for Safety Resolve 2019-01-01 Evi hospitaliza d 12-18 13:20:00 Hai tion 14:00: [id number] 00 Cardio hypertensio Cardiovasc Resolve 2018-2019-01-01 Evi n ular d 12-25 13:20:00 Hai 10:30: [id number] 00 Respiratory oxygen Respirator Resolve 2018-2019-01-08 Evi treatments y d 12-25 11:00:00 Hai in home 10:30: [id number] 00 Respiratory lung sounds Respirator Resolve 2018-2019-01-01 Evi deficit y d 12-25 13:20:00 Hai 10:30: [id number] 00 Respiratory nebulizer Respirator Resolve 2019-01-08 Evi treatment y d 12-25 11:00:00 Hai in home 10:30: [id number] 00 Cardio hypertensio Cardiovasc Resolve 2019-01-15 Evi n ular d - 12:05:00 Hai 11:00: [id number] 00 Respiratory smoker Respirator Resolve 2019-01-08 Evi y d 6- 11:00:00 Hai 11:00: [id number] 00 Respiratory lung sounds Respirator Resolve 2018-2019-01-08 Evi deficit y d 6- 11:00:00 Hai 11:00: [id number] 00 Safety risk for Safety Resolve 2019-01-15 Evi hospitaliza d - 12:05:00 Hai tion 11:00: [id number] 00 Respiratory lung sounds Respirator Unknown Evi deficit y 6 Hai 12:05: [id number] 00 Respiratory nebulizer Respirator Resolve 2018-2019-01-22 Evi treatment y d 6- 11:45:00 Hai in home 12:05: [id number] 00 Respiratory oxygen Respirator Resolve 2018-2019-01-22 Evi treatments y d 6 11:45:00 Hai in home 11:45: [id number] 00 Respiratory smoker Respirator Resolve 2019-01-22 Evi y d 6 11:45:00 Hai 11:45: [id number] 00 Respiratory lung sounds Respirator Resolve 2018-2019-02-05 Evi deficit y d 01-29 11:30:00 Hai 11:40: [id number] 00 Respiratory smoker Respirator Resolve 2019-02-05 Evi y d 01-29 11:30:00 Hai 11:40: [id number] 00 Respiratory nebulizer Respirator Resolve 2019-02-05 Evi treatment y d 01-29 11:30:00 Hai in home 11:40: [id number] 00 Pain severe pain Pain Mgmt Resolve 2019-02-12 Evi d 02-08 13:30:00 Hai 16:30: [id number] 00 Respiratory oxygen Respirator Resolve 2019-02-19 Evi treatments y d 02-12 14:00:00 Hai in home 13:30: [id number] 00 Respiratory nebulizer Respirator Resolve 2019-02-19 Evi treatment y d 02-12 14:00:00 Hai in home 13:30: [id number] 00 Integument other wound Integument Resolve 2019-02-12 Evi present d 02-12 13:30:00 Hai 13:30: [id number] 00 Safety fall risk Safety Resolve 2019-02-12 Evi factor d 02-12 13:30:00 Hai present 13:30: [id number] Safety risk for Safety Resolve 2019-07-02 Evi hospitaliza d 02-12 11:45:00 Hai tion 13:30: [id number] Respiratory smoker Respirator Resolve 2019-02-19 Evi y d 02-19 14:00:00 Hai 14:00: [id number] 00 Integument knowledge/s Integument Resolve 2019-02-27 Evi kill d 02-19 11:00:00 Hai deficit: pt 14:00: [id number] 00 Respiratory nebulizer Respirator Unknown Evi treatment y 7-31 Hai in home 11:00: [id number] 00 Respiratory smoker Respirator Resolve 2019-03-05 Evi y d 8 13:00:00 Hai 13:00: [id number] 00 Respiratory lung sounds Respirator Resolve 2019-04-09 Evi deficit y d 8 14:30:00 Hai 13:00: [id number] 00 Endo/Hugo glucose Endo/Hugo Resolve 2019-03-19 Evi tolerance d 03-05 13:30:00 Hai problem 13:00: [id number] 00 Endo/Hugo knowledge/s Endo/Hugo Resolve 2019-03-19 Evi kill d 03-05 13:30:00 Hai deficit 13:00: [id number] hypo/hyperg 00 lycemia: pt Integument other wound Integument Resolve 2019-03-05 Evi present d 03-05 13:00:00 Hai 13:00: [id number] 00 Respiratory oxygen Respirator Resolve 2019-03-26 Evi treatments y d 8-13 16:55:00 Hai in home 13:00: [id number] 00 Respiratory nebulizer Respirator Resolve 2019-03-26 Evi treatment y d 8-13 16:55:00 Hai in home 13:00: [id number] 00 Respiratory oxygen Respirator Resolve 2019-04-09 Evi treatments y d 903 14:30:00 Hai in home 12:15: [id number] 00 Respiratory nebulizer Respirator Resolve 2019-04-09 Evi treatment y d 9 14:30:00 Hai in home 12:15: [id number] 00 Endo/Hugo knowledge/s Endo/Hugo Resolve 2019-06-25 Evi kill d 04-02 12:00:00 Hai deficit: pt 12:15: [id number] 00 Endo/Hugo knowledge/s Endo/Hugo Resolve 2019-06-25 Evi kill d 04-02 12:00:00 Hai deficit 12:15: [id number] hypo/hyperg 00 lycemia: pt Respiratory smoker Respirator Resolve 2019-04-09 Evi y d 04-09 14:30:00 Hai 14:30: [id number] 00 Endo/Hugo glucose Endo/Hugo Resolve 2019-04-09 Evi tolerance d 9-10 14:30:00 Hai problem 14:30: [id number] 00 Respiratory oxygen Respirator Resolve 2019-04-23 Evi treatments y d 9-16 14:15:00 Hai in home 14:00: [id number] 00 Respiratory smoker Respirator Resolve 2019-04-23 Evi y d 9-16 14:15:00 Hai 14:00: [id number] 00 Respiratory nebulizer Respirator Resolve 2019-04-23 Eiv treatment y d 9-16 14:15:00 Hai in home 14:00: [id number] 00 Endo/Hugo anti-coagul Endo/Hugo Resolve 2019-04-23 Evi ation d 9- 14:15:00 Hai therapy 14:00: [id number] 00 Endo/Hugo glucose Endo/Hugo Resolve 2019-04-23 Evi tolerance d 24 14:15:00 Hai problem 14:15: [id number] 00 Respiratory lung sounds Respirator Resolve 2018-072019-05-07 Evi deficit y d 0-01 15:20:00 Hai 11:06: [id number] 00 Respiratory smoker Respirator Resolve 2018-072019-05-07 Evi y d 0-01 15:20:00 Hai 11:06: [id number] 00 Respiratory oxygen Respirator Resolve 2018-072019-05-15 Evi treatments y d 0-08 10:00:00 Hai in home 15:20: [id number] 00 Respiratory nebulizer Respirator Resolve 2018-072019-05-15 Evi treatment y d 0-08 10:00:00 Hai in home 15:20: [id number] 00 Respiratory lung sounds Respirator Resolve 2018-072019-05-15 Evi deficit y d 0-16 10:00:00 Hai 10:00: [id number] 00 Respiratory lung sounds Respirator Resolve 2018-072019-05-28 Evi deficit y d 0-23 13:15:00 Hai 09:30: [id number] 00 Respiratory oxygen Respirator Resolve 2018-072019-08-13 Evi treatments y d 0-29 10:50:00 Hai in home 13:15: [id number] 00 Respiratory nebulizer Respirator Resolve 2018-072019-08-13 Evi treatment y d 0-29 10:50:00 Hai in home 13:15: [id number] 00 Respiratory smoker Respirator Resolve 2018-072019-05-28 Evi y d 0-29 13:15:00 Hai 13:15: [id number] 00 Respiratory lung sounds Respirator Resolve 2018-072019-06-04 Evi deficit y d 1-05 12:00:00 Hai 12:00: [id number] 00 Respiratory lung sounds Respirator Resolve 2018-072019-06-25 Evi deficit y d 1-11 12:00:00 Hai 11:00: [id number] 00 Respiratory smoker Respirator Resolve 2018-072019-06-18 Evi y d 1-11 12:45:00 Hai 11:00: [id number] 00 Integument other wound Integument Resolve 2018-072019-06-18 Evi present d 1-11 12:45:00 Hai 11:00: [id number] 00 Safety fall risk Safety Resolve 2018-072019-06-25 Evi factor d 1-11 12:00:00 Hai present 11:00: [id number] 00 Respiratory smoker Respirator Resolve 2018-072019-06-25 Evi y d 1- 12:00:00 Hai 12:00: [id number] 00 Neuro anxiety Neuro/Emot Active 2018-07 Evi present ion - Hai 12:00: [id number] Neuro memory Neuro/Emot Active 2018-07 Evi deficit ion - Hai needing 12:00: [id number] 00 Respiratory smoker Respirator Resolve 2018-072019-07-30 Evi y d 2-03 11:00:00 Hai 11:45: [id number] 00 Respiratory lung sounds Respirator Resolve 2018-072019-07-30 Evi deficit y d 2-11 11:00:00 Hai 13:05: [id number] 00 Safety risk for Safety Resolve 2018-072019-07-10 Evi hospitaliza d 2-11 13:05:00 Hai tion 13:05: [id number] Safety risk for Safety Resolve 2018-072019-07-23 [facility]- 11:00:00 Hai tion 15:00: [id number] 00 Safety risk for Safety Resolve 2018-072019-07-30 [facility] 11:00:00 Hai tion 11:00: [id number] 00 Safety risk for Safety Resolve 2019-08-13 Ev[facility] 08-06 10:50:00 Hai tion 12:30: [id number] Medication potential Meds Active Evi clinically 08-06 Hai significant 12:30: [id number] medication 00 issue Cardio hypertensio Cardiovasc Resolve 2019-08-27 Evi n ular d 08-13 11:10:00 Hai 10:50: [id number] 00 Respiratory knowledge/s Respirator Resolve 2019-08-13 Evi kill y d 08-13 10:50:00 Hai deficit: pt 10:50: [id number] 00 Respiratory lung sounds Respirator Resolve 2019-08-13 Evi deficit y d 08-13 10:50:00 Hai 10:50: [id number] 00 Respiratory smoker Respirator Resolve 0 2019-08-13 Evi y d 08-13 10:50:00 Hai 10:50: [id number] 00 Integument other wound Integument Resolve 2019-09-04 Evi present d 08-13 11:25:00 Hai 10:50: [id number] 00 Neuro depressive Neuro/Emot Active Evi feelings ion 08-13 Hai present 10:50: [id number] 00 Medication knowledge/s Meds Active Evi kill - Hai deficit: pt 10:50: [id number] 00 Respiratory oxygen Respirator Active Evi treatments y -21 Hai in home 13:20: [id number] 00 Respiratory knowledge/s Respirator Active Evi kill y -21 Hai deficit: pt 13:20: [id number] 00 Respiratory lung sounds Respirator Active Evi deficit y - Hai 13:20: [id number] 00 Respiratory smoker Respirator Active 2019- Evi y 08-20 Hai 13:20: [id number] 00 Respiratory nebulizer Respirator Active Evi treatment y 08-20 Hai in home 13:20: [id number] 00 Endo/Hugo glucose Endo/Hugo Resolve 2019-09-04 Evi tolerance d 08-20 11:25:00 Hai problem 13:20: [id number] 00 Endo/Hugo knowledge/s Endo/Hugo Resolve 2019-09-04 Evi kill d 08-20 11:25:00 Hai deficit: pt 13:20: [id number] 00 Endo/Hugo knowledge/s Endo/Hugo Resolve 2019-09-04 Evi kill d 08-20 11:25:00 Hai deficit 13:20: [id number] hypo/hyperg 00 lycemia: pt Neuro impaired Neuro/Emot Active Evi decision-ma ion 08-27 Hai zainab 11:10: [id number] 00 Allergies, Adverse Reactions, Alerts Allergy Allergy Type [...] mg Unknown 40 mg 40 mg 2- ,Leroy capsule,del capsule,del ayed ayed release release hydroCHLORO hydroCHLORO No Darlow 12.5 mg Unknown thiazide thiazide 208-22 Leroy DUMONT 12.5 mg 12.5 mg tablet tablet cetirizine cetirizine No Darlow 10 mg Unknown 10 mg 10 mg 202-09 Leroy DUMONT tablet tablet albuterol albuterol No Darlow 1 amp Unknown sulfate 2.5 sulfate 2.5 2 Leroy DUMONT mg/3 mL mg/3 mL (0.083 %) (0.083 %) solution solution for for nebulizatio nebulizatio n n Singulair Singulair No Darlow 10 mg Unknown 10 mg 10 mg 2- Leroy DUMONT tablet tablet metoclopram metoclopram Darlow 5 mg Unknown sincere 5 mg sincere 5 mg 09-04 ,Leroy tablet tablet Lipitor 80 Lipitor 80 No Darlow 80 mg Unknown mg tablet mg tablet 09-04 ,Leroy lisinopril lisinopril Darlow 20 mg Unknown 10 mg 10 mg 09-04 Leroy DUMONT (2 abs) tablet tablet traMADol 50 traMADol [...] Darlow 2 puffs Unknown 90 90 09-04 Leroy DUMONT mcg/actuati mcg/actuati on aerosol on aerosol inhaler inhaler Pataday 0.2 Pataday 0.2 2016- Darlow 1 drop Unknown % eye drops % eye drops 09-04 ,Leroy senna 8.6 senna 8.6 Darlow 8,6 mg Unknown mg tablet mg tablet 09-04 Leroy DUMONT mupirocin 2 mupirocin 2 Darlow 1 Unknown % topical % topical 09-04 ,Leroy ointment ointment betamethaso betamethaso 2017- No Darlow 1 Unknown ne valerate ne valerate 09-04 ,Leroy 0.1 % 0.1 % topical topical cream cream metFORMIN metFORMIN 2018- Darlow 1000 mg Unknown 1,000 mg 1,000 mg 09-04 ,Leroy tablet tablet Lyrica 75 Lyrica 75 Darlow 75 mg Unknown mg capsule mg capsule 09-04 ,Leroy HumaLOG HumaLOG No Darlow 5- 10 Unknown KwikPen KwikPen 09-04- ,Leroy units (U-100) (U-100) Insulin 100 Insulin 100 unit/mL unit/mL subcutaneou subcutaneou s s Lantus Lantus No Darlow 6-20 Unknown U-100 U-100 09-04- Leroy DUMONT units Insulin 100 Insulin 100 unit/mL unit/mL subcutaneou subcutaneou s solution s solution benzonatate benzonatate 2017- No Darlow 200 mg Unknown 200 mg 200 mg 09-04- ,Leroy capsule capsule Symbicort Symbicort No Darlow 2 puffs Unknown 160 mcg-4.5 160 mcg-4.5 09-04 Leroy DUMONT mcg/actuati mcg/actuati on HFA on HFA aerosol aerosol inhaler inhaler FLUoxetine FLUoxetine No Darlow 40 mg Unknown 40 mg 40 mg 09-04 Leroy DUMONT capsule capsule oxygen oxygen No Darlow 2 liter Unknown permeable permeable 09-04 ,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 liquid FLUoxetine FLUoxetine No Darlow 3 caps Unknown 20 mg 20 mg 11-19 ,Leroy (60 mg) capsule capsule Invokana Invokana 2018- No Darlow 100 mg Unknown 100 mg 100 mg 11-19- Leroy DUMONT tablet tablet Benadryl 25 Benadryl 25 No Darlow 1-2 Unknown mg capsule mg capsule 01-26 Leroy DUMONT tabs Oxygen Oxygen No Darlow 2 lpm Unknown 01-25 Leroy DUMONT traMADol ER traMADol ER 2016- No [place] one Unknown 300 mg 300 mg 03-10 Hugo DUMONT daily capsule 24 capsule 24 hr,extended hr,extended release release metoclopram metoclopram No Darlow 1 tab Unknown sincere 5 mg sincere 5 mg 09-04- ,Leroy tablet tablet diazePAM 5 diazePAM 5 No Darlow 1 tab Unknown mg tablet mg tablet 04-15 ,Leroy amoxicillin amoxicillin 2015-07 No Darlow 1 Unknown [id number] 08-09 ,Leroy mg-potassiu mg-potassiu m m clavulanate clavulanate 125 mg 125 mg tablet tablet Lyrica 100 Lyrica 100 2015-07- No [place] Unknown Unknown mg capsule mg capsule 08-06 Hugo DUMONT amoxicillin amoxicillin 2016- No Darlow 875/125 Unknown [id number] 08-16 ,Leroy mg mg-potassiu mg-potassiu m m clavulanate clavulanate 125 mg 125 mg tablet tablet cephALEXin cephALEXin 2016- No Darlow 500mg Unknown 500 mg 500 mg 08-26 ,Leroy capsule capsule lyrica lyrica 2016- No [place] 100mg Unknown 09-05 Hugo DUMOTN methocarbam methocarbam No Darlow 750mg Unknown ol 750 mg ol 750 mg 08-16 MD,Leroy tablet tablet Lyrica 150 Lyrica 150 2018- No [place] 150mg Unknown mg capsule mg capsule 10-21 Hugo DUMONT cap Lantus Lantus 2018- No Darlow 07-21 Unknown U-100 U-100 04-04 Leroy DUMONT units Insulin 100 Insulin 100 unit/mL unit/mL subcutaneou subcutaneou s solution s solution Nicorette 2 Nicorette 2 2016-07- No Darlow 1 piece Unknown mg gum mg gum 09-10 Leroy DUMONT Duragesic Duragesic 2017- No [place] 12mcg Unknown 12 mcg/hr 12 mcg/hr 01-09 Hugo DUMONT transdermal transdermal patch patch hydrocortis hydrocortis No Darlow Unknown Unknown one 1 % one 1 % 8-15 ,Leroy topical topical ointment ointment Duragesic Duragesic 2018- No [place] Unknown Unknown 25 mcg/hr 25 mcg/hr 04-26 Hugo DUMONT transdermal transdermal patch patch lisinopril lisinopril No Darlow Unknown Unknown 20 mg 20 mg 3-10 ,Leroy tablet tablet Colace 100 Colace 100 2018- No Darlow Unknown Unknown mg capsule mg capsule 10-07- ,Leroy Colace 100 Colace 100 2018- No Darlow Unknown Unknown mg capsule mg capsule 10-10- MD,Leroy Colace 100 Colace 100 No Darlow Unknown Unknown mg capsule mg capsule 11-20 MD,[facility]eroy glimepiride glimepiride No Darlow Unknown Unknown 1 mg tablet 1 mg tablet 11-20 MD,Leroy triamcinolo triamcinolo 2018- No Darlow Unknown Unknown ne ne 01-08- ,Leroy acetonide acetonide 0.025 % 0.025 % topical topical cream cream Lyrica 75 Lyrica 75 2018- No [place] Unknown Unknown mg capsule mg capsule 01-22 ,Hugo Lyrica 100 Lyrica 100 2018- No [place] Unknown Unknown mg capsule mg capsule 02-06 ,Hugo Fluocinonid Fluocinonid No [place]ent[place] Unknown Unknown e-E 0.05 % e-E 0.05 % 01-29 ,Shravan A topical topical cream cream ketoconazol ketoconazol No [place] Unknown Unknown e 2 % e 2 % 01-29 Shravan DUMONT A shampoo shampoo Lantus Lantus 2018- No Darlow Unknown Unknown U-100 U-100 02-15 ,Leroy Insulin 100 Insulin 100 unit/mL unit/mL subcutaneou subcutaneou s solution s solution metFORMIN metFORMIN 2018- No Darlow Unknown Unknown 1,000 mg 1,000 mg 02-15 ,Leroy tablet tablet Lantus Lantus 2019- No Darlow Unknown Unknown U-100 U-100 02-26 ,Leroy Insulin 100 Insulin 100 unit/mL unit/mL subcutaneou subcutaneou s solution s solution metFORMIN metFORMIN No Darlow Unknown Unknown 1,000 mg 1,000 mg 02-26 MD,Leroy tablet tablet Aspir-Low Aspir-Low No Darlow Unknown Unknown 81 mg 81 mg 8- MD,Leroy tablet,anna tablet,anna yed release yed release Lyrica 150 Lyrica 150 No [place] Unknown Unknown mg capsule mg capsule 9-16 Hugo DUMONT Spiriva Spiriva 2018-07 Yes Samantha Unknown Unknown Respimat Respimat -11 ,Citlali [...] Bael Unknown Unknown 4 mg 4 mg 08-19 MD,[place] disintegrat disintegrat ing tablet ing tablet prochlorper prochlorper Yes Bael Unknown Unknown azine azine 08-19 MD,[place] maleate 10 maleate 10 mg tablet mg tablet dexAMETHaso dexAMETHaso Yes Bael Unknown Unknown ne 4 mg ne 4 mg 08-13 MD,[place] tablet tablet OLANZapine OLANZapine Yes Bael Unknown Unknown 10 mg 10 mg 08-13 MD,[place] tablet tablet Lantus Lantus Yes Darlow Unknown Unknown U-100 U-100 08-20 MD,[place] Insulin 100 Insulin 100 unit/mL unit/mL subcutaneou subcutaneou s solution s solution oxyCODONE 5 oxyCODONE 5 2019- Yes Bael Unknown Unknown mg tablet mg tablet 08-20 MD,[place] magnesium magnesium 2019- Yes Bael Unknown Unknown oxide oxide 08-20 MD,[place] magnesium magnesium Yes Bael Unknown Unknown oxide oxide - MD,[place] Vital Signs Vital Name Observation Time Observation Value Comments SYSTOLIC mm[Hg] 2019-09-06 18:10:16 170 mm[Hg] mm[Hg] Method: Sit SYSTOLIC mm[Hg] 2019-08-14 18:09:53 170 mm[Hg] mm[Hg] Method: Stand DIASTOLIC mm[Hg] 2019-09-06 18:10:16 90 mm[Hg] mm[Hg] Method: Sit DIASTOLIC mm[Hg] 2019-08-14 18:09:53 88 mm[Hg] mm[Hg] Method: Stand PULSE 2019-09-06 18:10:16 82 /min /min RESP RATE 2019-09-06 18:10:16 16 /min /min TEMP 2019-09-06 18:10:16 96.9 [degF] Procedures This patient has no known procedures. Results This patient has no known results.
--- OUTSIDE RECORDS SUMMARY | 2019-09-17 05:40 | XMS REPORT ---
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 [id number] with with hyperglycem hyperglycem ia ia Chronic Chronic Diagnosis Active Evi obstructive obstructive 2- Hai pulmonary pulmonary [id number] disease, disease, unspecified unspecified Essential Essential Diagnosis Active Evi (primary) (primary) 2- Hai hypertensio hypertensio [id number] n n Other Other Diagnosis Active Evi chronic chronic 2- Hai pain pain [id number] 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, disorder, 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, recurrent, unspecified unspecified Gastro-esop Gastro-esop Diagnosis Active Evi hageal hageal 2- Hai reflux reflux [id number] disease disease without without esophagitis esophagitis 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 [id number] Low back Low back Diagnosis Active Evi pain pain Hai [id number] Hyperlipide Hyperlipide Diagnosis Active Evi hank, hank, Hai unspecified unspecified [id number] Hypothyroid Hypothyroid Diagnosis Active Evi ism, ism, Hai unspecified unspecified [id number] Respiratory treatments Respirator Resolve 2016-10-17 [place] ordered y d 2- 12:30:00 Son [id number] Pain frequent Pain Mgmt Resolve 2018-08-28 [place] pain d 2- 12:45:00 Son 13:13: [id number] 00 Pain knowledge/s Pain Mgmt Resolve 2015-09-09 [place] kill d 09-04 10:40:00 Son deficit: pt 13:13: [id number] 00 Pain severe pain Pain Mgmt Resolve 29 Chelsea d 2-05 12:45:00 Son 13:13: [id number] 00 Respiratory dyspnea Respirator Resolve 2016-10-17 Chelsea present y d 2- 12:30:00 Son 13:13: [id number] 00 Respiratory oxygen Respirator Resolve 2016-10-17 [place] treatments y d 2- 12:30:00 Son in home 13:13: [id number] 00 Respiratory knowledge/s Respirator Resolve 2015-09-16 [place] kill y d 2- 12:00:00 Son deficit: pt 13:13: [id number] 00 Respiratory lung sounds Respirator Resolve 2016-06-29 [place] deficit y d 2 13:03:00 Son 13:13: [id number] 00 Endo/Hugo knowledge/s Endo/Hugo Resolve 2015-09-16 [place] kill d 2- 12:00:00 Son deficit: pt 13:13: [id number] 00 Endo/Hugo diabetic Endo/Hugo Resolve 2016-06-29 Chelsea foot care d 2- 13:03:00 Son 13:13: [id number] 00 Nutrition knowledge/s Nutrition Resolve 2015-09-04 [place] kill d 2 13:13:00 Son deficit: pt 13:13: [id number] 00 Neuro anxiety Neuro/Emot Resolve 2016-08-02 Chelsea present ion d 2- 10:30:00 Son 13:13: [id number] 00 Neuro depressive Neuro/Emot Resolve 2016-08-02 Chelsea feelings ion d 2- 10:30:00 Son present 13:13: [id number] 00 Neuro knowledge/s Neuro/Emot Resolve 2015-09-16 [place] kill ion d 2- 12:00:00 Son deficit: pt 13:13: [id number] 00 Activity ADL Activity Resolve 2016-04-27 [place] assistance d 2- 11:15:00 Son required 13:13: [id number] 00 Activity knowledge/s Activity Resolve 2016-03-01 [place] kill d 2- 12:00:00 Son deficit: pt 13:13: [id number] 00 Safety fall risk Safety Resolve 2015-09-16 Chelsea factor d 2-05 12:00:00 Cline present 13:13: [id number] 00 Safety risk for Safety Resolve 2015-09-16 [place] hospitaliza d 2-05 12:00:00 Cline tion 13:13: [id number] 00 Medication oral med Meds Resolve 2016-08-02 [place] assistance d 2-05 10:30:00 Cline required 13:13: [id number] 00 Medication injectable Meds Resolve 2016-08-02 [place] med d 2-05 10:30:00 Cline assistance 13:13: [id number] required 00 Medication knowledge/s Meds Resolve 2016-06-29 [place] kill d 2-05 13:03:00 Son deficit: pt 13:13: [id number] 00 Medication potential Meds Resolve 2016-08-02 Chelsea clinically d 2- 10:30:00 Son significant 13:13: [id number] medication 00 issue Diagnoses knowledge/s Diagnoses Active Chelsea kill - Cline deficit: pt 13:13: [id number] 00 Pain knowledge/s Pain Mgmt Resolve 2015-09-16 Cherrise kill d 2- 12:00:00 Abbe deficit: pt 12:00: [id number] 00 Safety sanitation Safety Resolve 2016-03-01 Cherrise hazards d 2-17 12:00:00 Abbe present 12:00: [id number] 00 Safety risk for Safety Resolve 2016-03-01 Cherrise hospitaliza d 2-18 12:00:00 [place] tion 12:15: [id number] 00 Neuro knowledge/s Neuro/Emot Resolve 2016-08-16 Cherrise kill ion d 2- 12:45:00 [place] deficit: pt 13:29: [id number] 57 Safety structural Safety Resolve 2016-03-01 Cherrise barriers d 2- 12:00:00 Abbe present 13:29: [id number] 57 Respiratory knowledge/s Respirator Resolve 2016-04-27 [place] kill y d 10-27 11:15:00 Son deficit: cg 09:40: [id number] 00 Pain frequent Pain Mgmt Resolve 2018-08-28 Chelsea pain d 11-03 12:45:00 Son 13:04: [id number] 00 Pain knowledge/s Pain Mgmt Resolve 2016-02-24 [place] kill d 11-03 13:35:00 Son deficit: pt 13:04: [id number] 00 Respiratory knowledge/s Respirator Resolve 2016-04-27 [place] kill y d 11-03 11:15:00 Son deficit: pt 13:04: [id number] 00 Safety fall risk Safety Resolve 2016-03-01 [place] factor d 11-03 12:00:00 Son present 13:04: [id number] 00 Endo/Hugo insulin Endo/Hugo Resolve 2016-10-17 Chelsea admn d 11-24 12:30:00 Son dependence 10:48: [id number] 00 Safety safety Safety Resolve 2016-03-01 Chelsea hazards d 12-22 12:00:00 Cline present 09:15: [id number] 00 Elimination constipatio Eliminatio Resolve 2016-03-01 Chelsea n n d 12-29 12:00:00 Son 13:33: [id number] 00 IV IV present IV Resolve 2016-01-26 Chelsea d 12-29 11:50:00 Son 13:33: [id number] 00 Integument skin Integument Resolve 2016-04-27 Anna integrity d 01-25 11:15:00 Regeczi risk 11:50: [id number] 00 Nutrition knowledge/s Nutrition Resolve 2016-03-01 Cherrise kill d 02-26 12:00:00 [place] deficit: pt 10:00: [id number] 00 Pain frequent Pain Mgmt Resolve 2018-08-28 [place] pain d 03-01 12:45:00 Son 12:00: [id number] 00 Nutrition knowledge/s Nutrition Resolve 2016-04-06 Neida kill d 03-23 14:54:00 [place] deficit: pt 13:30: RN 00 Endo/Hugo insulin Endo/Hugo Resolve 2016-10-17 [place] admn d 04-06 12:30:00 Cline dependence 14:54: [id number] 00 Nutrition changing Nutrition Resolve 2016-05-10 Chelsea weight/appe d 04-27 11:45:00 Son tite 11:15: [id number] 00 Nutrition knowledge/s Nutrition Resolve 2016-04-27 [place] kill d 04-27 11:15:00 Son deficit: pt 11:15: [id number] 00 Cardio hypertensio Cardiovasc Resolve 2016-09-20 Evi n ular d 08-02 10:00:00 Hai 10:30: [id number] 00 Respiratory lung sounds Respirator Resolve 2016-08-25 Evi deficit y d 08-02 10:30:00 Hai 10:30: [id number] 00 Respiratory CPAP Respirator Resolve 2016-10-17 Evi treatments y d 08-02 12:30:00 Hai in home 10:30: [id number] 00 Respiratory dyspnea Respirator Resolve 2016-10-17 Evi present y d 08-02 12:30:00 Hai 10:30: [id number] 00 Respiratory oxygen Respirator Resolve 2016-10-17 Evi treatments y d 08-02 12:30:00 Hai in home 10:30: [id number] 00 Integument knowledge/s Integument Resolve 2016-08-16 Evi kill d 08-02 12:45:00 Hai deficit: pt 10:30: [id number] 00 Medication knowledge/s Meds Resolve 2016-08-25 Evi kill d 08-02 10:30:00 Hai deficit: pt 10:30: [id number] 00 Neuro anxiety Neuro/Emot Resolve 2016-10-17 Evi present ion d 08-16 12:30:00 Hai 12:45: [id number] 00 Integument knowledge/s Integument Resolve 2016-08-25 Evi kill d 08-25 10:30:00 Hai deficit: pt 10:30: [id number] 00 Nutrition nutritional Nutrition Resolve 2016-08-25 Evi restriction d 08-25 10:30:00 Hai s 10:30: [id number] 00 Neuro knowledge/s Neuro/Emot Resolve 2016-2016-08-25 Evi kill ion d 08-25 10:30:00 Hai deficit: pt 10:30: [id number] 00 Medication oral med Meds Resolve 2016-08-25 Evi assistance d 08-25 10:30:00 Hai required 10:30: [id number] 00 Respiratory oxygen Respirator Unknown Evi treatments y 2-06 Hai in home 14:30: [id number] 00 Integument knowledge/s Integument Resolve 2016-09-05 Evi kill d 09-05 14:30:00 Hai deficit: pt 14:30: [id number] 00 Medication oral med Meds Resolve 2016-10-17 Evi assistance d 09-05 12:30:00 Hai required 14:30: [id number] 00 Medication knowledge/s Meds Resolve 2016-12-05 Evi kill d 09-05 17:00:00 Hai deficit: pt 14:30: [id number] 00 Respiratory lung sounds Respirator Resolve 2016-09-20 Evi deficit y d 2- 10:00:00 Hai 10:00: [id number] 00 Integument knowledge/s Integument Resolve 2016-10-17 Evi kill d 2- 12:30:00 Hai deficit: pt 10:00: [id number] 00 Integument other wound Integument Resolve 2016-10-17 Evi present d 2- 12:30:00 Hai 10:00: [id number] 00 Respiratory lung sounds Respirator Resolve 2018-10-09 Evi deficit y d 3-06 12:40:00 Hai 15:00: [id number] 00 Respiratory CPAP Respirator Unknown Evi treatments y 3-06 Hai in home 15:00: [id number] 00 Respiratory smoker Respirator Resolve 2016-10-17 Evi y d 3-06 12:30:00 Hai 15:00: [id number] 00 Respiratory nebulizer Respirator Unknown Evi treatment y 3-06 Hai in home 15:00: [id number] 00 Respiratory dyspnea Respirator Resolve 2016-11-07 Evi present y d 10-25 12:20:00 Hai 14:15: [id number] 00 Respiratory oxygen Respirator Unknown Evi treatments y 10-25 Hai in home 14:15: [id number] 00 Respiratory smoker Respirator Resolve 2016-11-07 Evi y d 10-25 12:20:00 Hai 14:15: [id number] 00 Integument other wound Integument Resolve 2016-10-25 Evi present d 10-25 14:15:00 Hai 14:15: [id number] 00 Nutrition nutritional Nutrition Resolve 2016-11-07 Evi restriction d 10-25 12:20:00 Hai s 14:15: [id number] 00 Neuro anxiety Neuro/Emot Resolve 2016-11-07 Evi present ion d 10-25 12:20:00 Hai 14:15: [id number] 00 Medication oral med Meds Resolve 2016-12-05 Evi assistance d 10-25 17:00:00 Hai required 14:15: [id number] 00 Medication potential Meds Resolve 2016-12-05 Evi clinically d 11-07 17:00:00 Hai significant 12:20: [id number] medication 00 issue Respiratory dyspnea Respirator Resolve 2016-11-21 Evi present y d 11-14 13:30:00 Hai 14:00: [id number] 00 Respiratory oxygen Respirator Unknown Evi treatments y 11-21 Hai in home 13:30: [id number] 00 Respiratory lung sounds Respirator Resolve 2018-10-09 Evi deficit y d 11-21 12:40:00 Hai 13:30: [id number] 00 Respiratory smoker Respirator Resolve 2016-11-21 Evi y d 11-21 13:30:00 Hai 13:30: [id number] 00 Respiratory nebulizer Respirator Unknown Evi treatment y 11-21 Hai in home 13:30: [id number] 00 Neuro anxiety Neuro/Emot Resolve 2016-12-25 Evi present ion d 11-21 13:30:00 Hai 13:30: [id number] 00 Respiratory oxygen Respirator Resolve 2018-09-18 Evi treatments y d 12-05 13:30:00 Hai in home 17:00: [id number] 00 Respiratory smoker Respirator Resolve 2016-12-05 Evi y d 12-05 17:00:00 Hai 17:00: [id number] 00 Respiratory nebulizer Respirator Resolve 2018-09-18 Evi treatment y d 12-05 13:30:00 Hai in home 17:00: [id number] 00 Endo/Hugo knowledge/s Endo/Hugo Resolve 2016-12-19 Evi kill d 12-05 13:00:00 Hai deficit: pt 17:00: [id number] 00 Medication knowledge/s Meds Resolve 2016-12-25 Evi kill d 12-19 13:30:00 Hai deficit: pt 13:00: [id number] 00 Respiratory dyspnea Respirator Resolve 2017-02-27 Evi present y d 12-25 12:30:00 Hai 13:30: [id number] 00 Integument other wound Integument Resolve 2017-01-02 Evi present d 12-25 11:50:00 Hai 13:30: [id number] 00 Medication knowledge/s Meds Resolve 2016-12-25 Evi kill d 12-25 13:30:00 Hai deficit: pt 13:30: [id number] 00 Respiratory smoker Respirator Resolve 2017-01-16 Evi y d 01-16 15:00:00 Hai 15:00: [id number] 00 Respiratory lung sounds Respirator Resolve 2017-02-13 Evi deficit y d 02-13 12:45:00 Hai 12:45: [id number] 00 Respiratory smoker Respirator Resolve 2017-02-13 Evi y d 02-13 12:45:00 Hai 12:45: [id number] 00 Respiratory smoker Respirator Resolve 2017-02-27 Evi y d 02-24 12:30:00 Hai 13:00: [id number] 00 Integument other wound Integument Resolve 2017-02-24 Evi present d 02-24 13:00:00 Hai 13:00: [id number] 00 Nutrition nutritional Nutrition Resolve 2017-04-03 [place] restriction d - 12:25:00 Eric garcia 13:00: an 00 Integument other wound Integument Resolve 2017-05-01 Evi present d 04-25 12:15:00 Hai 13:00: [id number] 00 Neuro depressive Neuro/Emot Resolve 2017-05-01 Evi feelings ion d 04-25 12:15:00 Hai present 13:00: [id number] 00 Neuro anxiety Neuro/Emot Resolve 2017-05-01 Evi present ion d 04-25 12:15:00 Hai 13:00: [id number] 00 Respiratory lung sounds Respirator Resolve 2016-072017-05-01 Evi deficit y d 0- 12:15:00 Hai 12:15: [id number] 00 Respiratory smoker Respirator Resolve 2016-072017-06-12 Evi y d 1- 11:14:00 Hai 11:14: [id number] 00 Respiratory smoker Respirator Resolve 2016-072017-06-21 Evi y d 08-21 11:15:00 Hai 11:15: [id number] 00 Integument other wound Integument Resolve 2016-072017-06-21 Evi present d 08-21 11:15:00 Hai 11:15: [id number] 00 Respiratory lung sounds Respirator Resolve 2016-072017-06-26 Evi deficit y d 08-26 12:15:00 Hai 12:15: [id number] 00 Respiratory lung sounds Respirator Unknown 2016-07 Evi deficit y 2-11 Hai 12:20: [id number] 00 Respiratory smoker Respirator Resolve 2016-072017-08-03 Evi y d 2-28 11:30:00 Hai 12:10: [id number] 00 Respiratory lung sounds Respirator Resolve 2017-08-03 Evi deficit y d 1- 11:30:00 Hai 11:30: [id number] 00 Respiratory lung sounds Respirator Resolve 2017-08-07 Evi deficit y d 1- 10:20:00 Hai 10:20: [id number] 00 Respiratory smoker Respirator Resolve 2017-08-07 Evi y d 1-08 10:20:00 Hai 10:20: [id number] 00 Respiratory lung sounds Respirator Resolve 2017-2017-08-14 Evi deficit y d 1-15 11:30:00 Hai 11:30: [id number] 00 Respiratory smoker Respirator Resolve 2017-2017-08-14 Evi y d 1-15 11:30:00 Hai 11:30: [id number] 00 Integument other wound Integument Resolve 2017-2017-08-21 Evi present d 1- 10:50:00 Hai 10:50: [id number] 00 Respiratory smoker Respirator Resolve 2017-2017-09-04 Evi y d 1- 12:40:00 Hai 12:30: [id number] 00 Respiratory lung sounds Respirator Resolve 2017-09-11 Evi deficit y d 2-12 13:00:00 Hai 13:00: [id number] 00 Respiratory lung sounds Respirator Resolve 2017-09-20 Evi deficit y d 2-21 11:15:00 Hai 11:15: [id number] 00 Respiratory lung sounds Respirator Resolve 2017-2017-09-27 Evi deficit y d 2-28 11:45:00 Hai 11:45: [id number] 00 Respiratory lung sounds Respirator Resolve 2017-10-18 Evi deficit y d 3-21 11:00:00 Hai 11:00: [id number] 00 Respiratory smoker Respirator Resolve 2017-10-18 Evi y d 3-21 11:00:00 Hai 11:00: [id number] 00 Integument other wound Integument Resolve 2017-10-25 Evi present d 3-21 11:00:00 Hai 11:00: [id number] 00 Respiratory lung sounds Respirator Resolve 2018-10-09 Evi deficit y d 4-10 12:40:00 Hai 14:45: [id number] 00 Respiratory smoker Respirator Resolve 2017-2017-11-15 Evi y d 4-18 11:00:00 Hai 11:00: [id number] 00 Respiratory lung sounds Respirator Resolve 2017-2018-10-09 Evi deficit y d 4-25 12:40:00 Hai 13:40: [id number] 00 Respiratory smoker Respirator Resolve 2017-11-22 Evi y d 11-22 13:40:00 Hai 13:40: [id number] 00 Respiratory smoker Respirator Resolve 2017-12-06 Evi y d 12-06 13:15:00 Hai 13:15: [id number] 00 Respiratory lung sounds Respirator Resolve 2017-12-13 Evi deficit y d 12-13 13:00:00 Hai 13:00: [id number] 00 Respiratory lung sounds Respirator Resolve 2017-12-26 Evi deficit y d 12-20 12:05:00 Hai 13:15: [id number] 00 Integument other wound Integument Resolve 2017-12-26 Evi present d 12-20 12:05:00 Hai 13:15: [id number] 00 Respiratory lung sounds Respirator Resolve 2018-01-03 Evi deficit y d 06 12:38:00 Hai 12:38: [id number] 00 Respiratory lung sounds Respirator Resolve 2018-10-09 Evi deficit y d 6-13 12:40:00 Hai 15:00: [id number] 00 Respiratory smoker Respirator Resolve 2018-01-10 Evi y d 6-13 15:00:00 Hai 15:00: [id number] 00 Respiratory lung sounds Respirator Resolve 2018-01-24 Evi deficit y d 6- 13:10:00 Hai 13:10: [id number] 00 Nutrition nutritional Nutrition Resolve 2019-08-13 Evi restriction d 6 10:50:00 Hai s 13:10: [id number] 00 Safety sanitation Safety Resolve 2018-06-05 Evi hazards d 6- 10:35:00 Hai present 13:10: [id number] 00 Safety fall risk Safety Resolve 2018-02-19 Evi factor d 6 14:02:00 Hai present 13:10: [id number] 00 Safety risk for Safety Resolve 2018-10-30 Evi hospitaliza d 01-24 13:06:00 Hai tion 13:10: [id number] 00 Safety structural Safety Resolve 2018-02-19 Evi barriers d 01-24 14:02:00 Hai present 13:10: [id number] 00 Safety safety Safety Resolve 2018-02-19 Evi hazards d 01-24 14:02:00 Hai present 13:10: [id number] 00 Medication oral med Meds Active Evi assistance 01-24 Hai required 13:10: [id number] 00 Medication injectable Meds Active Evi med 01-24 Hai assistance 13:10: [id number] required 00 Respiratory lung sounds Respirator Resolve 2018-10-09 Evi deficit y d 01-29 12:40:00 Hai 13:45: [id number] 00 Respiratory smoker Respirator Resolve 2018-02-07 Evi y d 01-29 13:00:00 Hai 13:45: [id number] 00 Respiratory smoker Respirator Resolve 2018-03-01 Evi y d 02-19 11:42:00 Hai 14:02: [id number] 00 Integument other wound Integument Resolve 2018-03-21 Evi present d 02-19 15:30:00 Hai 14:02: [id number] 00 Respiratory smoker Respirator Resolve 2018-03-28 Evi y d 03-28 11:36:00 Hai 11:36: [id number] 00 Respiratory smoker Respirator Resolve 2018-04-03 Evi y d 04-03 14:00:00 Hai 14:00: [id number] 00 Respiratory smoker Respirator Resolve 2018-04-10 Evi y d 04-10 14:40:00 Hai 14:40: [id number] 00 Integument other wound Integument Resolve 2018-04-24 Evi present d 04-18 10:16:00 Hai 11:00: [id number] 00 Respiratory smoker Respirator Resolve 2017-072018-05-16 Evi y d 0 14:20:00 Hai 10:50: [id number] 00 Respiratory smoker Respirator Resolve 2017-072018-05-29 Evi y d 11:30:00 Hai 11:30: [id number] 00 Respiratory smoker Respirator Resolve 2017-072018-06-05 Evi y d 08-05 10:35:00 Hai 10:35: [id number] 00 Safety safety Safety Resolve 2017-072018-06-05 Evi hazards d 08-05 10:35:00 Hai present 10:35: [id number] 00 Integument other wound Integument Resolve 2017-072018-06-26 Evi present d 08-19 15:15:00 Hai 11:12: [id number] 00 Respiratory smoker Respirator Resolve 2017-072018-06-26 Evi y d 08-26 15:15:00 Hai 15:15: [id number] 00 Respiratory smoker Respirator Resolve 2017-072018-07-03 Evi y d 09-03 11:13:00 Hai 11:13: [id number] 00 Respiratory smoker Respirator Resolve 2017-072018-07-17 Evi y d 09-10 11:38:00 Hai 11:20: [id number] 00 Respiratory smoker Respirator Resolve 2017-072018-07-23 Evi y d 09-23 10:00:00 Hai 10:00: [id number] 00 Integument other wound Integument Resolve 2018-08-14 Evi present d 08-14 15:44:00 Hai 15:44: [id number] 00 Pain frequent Pain Mgmt Resolve 2018-08-28 Evi pain d 08-25 12:45:00 Hai 09:33: [id number] 56 Pain severe pain Pain Mgmt Resolve 2018-08-28 Evi d 08-25 12:45:00 Hai 09:33: [id number] 56 Integument other wound Integument Resolve 2018-08-28 Evi present d 08-25 12:45:00 Hai 09:33: [id number] 56 Respiratory smoker Respirator Resolve 2018-08-28 Evi y d 08-28 12:45:00 Hai 12:45: [id number] 00 Respiratory smoker Respirator Resolve 2018-09-04 Evi y d 09-04 11:30:00 Hai 11:30: [id number] 00 Respiratory smoker Respirator Resolve 2018-09-18 Evi y d 09-10 13:30:00 Hai 16:40: [id number] 00 Pain severe pain Pain Mgmt Resolve 2018-09-25 Evi d 2-19 10:30:00 Hai 13:30: [id number] 00 Neuro anxiety Neuro/Emot Unknown Evi present ion 09-18 Hai 13:30: [id number] 00 Respiratory oxygen Respirator Resolve 2018-10-16 Evi treatments y d 3-05 11:45:00 Hai in home 10:45: [id number] 00 Respiratory smoker Respirator Resolve 2018-10-09 Evi y d 3-05 12:40:00 Hai 10:45: [id number] 00 Respiratory nebulizer Respirator Resolve 2018-10-16 Evi treatment y d - 11:45:00 Hai in home 10:45: [id number] 00 Respiratory lung sounds Respirator Resolve 2018-10-16 Evi deficit y d 3 11:45:00 Hai 11:45: [id number] 00 Respiratory smoker Respirator Resolve 2018-10-16 Evi y d 3 11:45:00 Hai 11:45: [id number] 00 Integument other wound Integument Resolve 2018-10-23 Evi present d 10-16 11:20:00 Hai 11:45: [id number] 00 Respiratory nebulizer Respirator Resolve 2018-10-23 Evi treatment y d 10-23 11:20:00 Hai in home 11:20: [id number] 00 Safety safety Safety Resolve 2018-10-23 Evi hazards d 10-23 11:20:00 Hai present 11:20: [id number] 00 Respiratory lung sounds Respirator Unknown Evi deficit y 10-30 Hai 13:06: [id number] 00 Respiratory oxygen Respirator Resolve 2018-11-20 Evi treatments y d 11-06 10:35:00 Hai in home 11:31: [id number] 00 Respiratory smoker Respirator Resolve 2018-2018-11-06 Evi y d 11-06 11:31:00 Hai 11:31: [id number] 00 Respiratory nebulizer Respirator Resolve 2018-11-20 Evi treatment y d 11-06 10:35:00 Hai in home 11:31: [id number] 00 Safety risk for Safety Resolve 2018-11-12 Evi hospitaliza d 11-06 10:00:00 Hai tion 11:31: [id number] 00 Respiratory smoker Respirator Resolve 2018-11-20 Evi y d 11-12 10:35:00 Hai 10:00: [id number] 00 Respiratory lung sounds Respirator Resolve 2018-11-20 Evi deficit y d 11-20 10:35:00 Hai 10:35: [id number] 00 Safety risk for Safety Resolve 2018-11-27 Evi hospitaliza d 11-20 11:00:00 Hai tion 10:35: [id number] 00 Pain severe pain Pain Mgmt Resolve 2018-12-04 Evi d 11-27 11:35:00 Hai 11:00: [id number] 00 Respiratory oxygen Respirator Resolve 2018-12-12 Evi treatments y d 11-27 09:08:00 Hai in home 11:00: [id number] 00 Respiratory lung sounds Respirator Resolve 2018-12-04 Evi deficit y d 11-27 11:35:00 Hai 11:00: [id number] 00 Respiratory nebulizer Respirator Resolve 2018-12-12 Evi treatment y d 11-27 09:08:00 Hai in home 11:00: [id number] 00 Respiratory smoker Respirator Resolve 2018-12-04 Evi y d 12-04 11:35:00 Hai 11:35: [id number] 00 Safety risk for Safety Resolve 2018-12-12 Evi hospitaliza d 12-04 09:08:00 Hai tion 11:35: [id number] 00 Cardio hypertensio Cardiovasc Resolve 2018-12-18 Evi n ular d 12-12 14:00:00 Hai 09:08: [id number] 00 Respiratory lung sounds Respirator Resolve 2018-12-12 Evi deficit y d 12-12 09:08:00 Hai 09:08: [id number] 00 Respiratory smoker Respirator Resolve 2018-12-12 Evi y d 5-15 09:08:00 Hai 09:08: [id number] 00 Integument other wound Integument Resolve 2018-12-18 Evi present d 5-15 14:00:00 Hai 09:08: [id number] 00 Safety risk for Safety Resolve 2019-01-01 Evi hospitaliza d 12-18 13:20:00 Hai tion 14:00: [id number] 00 Cardio hypertensio Cardiovasc Resolve 2018-2019-01-01 Evi n ular d 12-25 13:20:00 Hai 10:30: [id number] 00 Respiratory oxygen Respirator Resolve 2018-2019-01-08 Evi treatments y d 12-25 11:00:00 Hai in home 10:30: [id number] 00 Respiratory lung sounds Respirator Resolve 2018-2019-01-01 Evi deficit y d 12-25 13:20:00 Hai 10:30: [id number] 00 Respiratory nebulizer Respirator Resolve 2019-01-08 Evi treatment y d 12-25 11:00:00 Hai in home 10:30: [id number] 00 Cardio hypertensio Cardiovasc Resolve 2019-01-15 Evi n ular d - 12:05:00 Hai 11:00: [id number] 00 Respiratory smoker Respirator Resolve 2019-01-08 Evi y d 6- 11:00:00 Hai 11:00: [id number] 00 Respiratory lung sounds Respirator Resolve 2018-2019-01-08 Evi deficit y d 6- 11:00:00 Hai 11:00: [id number] 00 Safety risk for Safety Resolve 2019-01-15 Evi hospitaliza d - 12:05:00 Hai tion 11:00: [id number] 00 Respiratory lung sounds Respirator Unknown Evi deficit y 6 Hai 12:05: [id number] 00 Respiratory nebulizer Respirator Resolve 2018-2019-01-22 Evi treatment y d 6- 11:45:00 Hai in home 12:05: [id number] 00 Respiratory oxygen Respirator Resolve 2018-2019-01-22 Evi treatments y d 6 11:45:00 Hai in home 11:45: [id number] 00 Respiratory smoker Respirator Resolve 2019-01-22 Evi y d 6 11:45:00 Hai 11:45: [id number] 00 Respiratory lung sounds Respirator Resolve 2018-2019-02-05 Evi deficit y d 01-29 11:30:00 Hai 11:40: [id number] 00 Respiratory smoker Respirator Resolve 2019-02-05 Evi y d 01-29 11:30:00 Hai 11:40: [id number] 00 Respiratory nebulizer Respirator Resolve 2019-02-05 Evi treatment y d 01-29 11:30:00 Hai in home 11:40: [id number] 00 Pain severe pain Pain Mgmt Resolve 2019-02-12 Evi d 02-08 13:30:00 Hai 16:30: [id number] 00 Respiratory oxygen Respirator Resolve 2019-02-19 Evi treatments y d 02-12 14:00:00 Hai in home 13:30: [id number] 00 Respiratory nebulizer Respirator Resolve 2019-02-19 Evi treatment y d 02-12 14:00:00 Hai in home 13:30: [id number] 00 Integument other wound Integument Resolve 2019-02-12 Evi present d 02-12 13:30:00 Hai 13:30: [id number] 00 Safety fall risk Safety Resolve 2019-02-12 Evi factor d 02-12 13:30:00 Hai present 13:30: [id number] 00 Safety risk for Safety Resolve 2019-07-02 Evi hospitaliza d 02-12 11:45:00 Hai tion 13:30: [id number] 00 Respiratory smoker Respirator Resolve 2019-02-19 Evi y d 02-19 14:00:00 Hai 14:00: [id number] Integument knowledge/s Integument Resolve 2019-02-27 Evi kill d 02-19 11:00:00 Hai deficit: pt 14:00: [id number] 00 Respiratory nebulizer Respirator Unknown Evi treatment y 7-31 Hai in home 11:00: [id number] 00 Respiratory smoker Respirator Resolve 2019-03-05 Evi y d 8 13:00:00 Hai 13:00: [id number] 00 Respiratory lung sounds Respirator Resolve 2019-04-09 Evi deficit y d 8 14:30:00 Hai 13:00: [id number] 00 Endo/Hugo glucose Endo/Hugo Resolve 2019-03-19 Evi tolerance d 03-05 13:30:00 Hai problem 13:00: [id number] 00 Endo/Hugo knowledge/s Endo/Hugo Resolve 2019-03-19 Evi kill d 03-05 13:30:00 Hai deficit 13:00: [id number] hypo/hyperg 00 lycemia: pt Integument other wound Integument Resolve 2019-03-05 Evi present d 03-05 13:00:00 Hai 13:00: [id number] 00 Respiratory oxygen Respirator Resolve 2019-03-26 Evi treatments y d 8-13 16:55:00 Hai in home 13:00: [id number] 00 Respiratory nebulizer Respirator Resolve 2019-03-26 Evi treatment y d 8-13 16:55:00 Hai in home 13:00: [id number] 00 Respiratory oxygen Respirator Resolve 2019-04-09 Evi treatments y d 903 14:30:00 Hai in home 12:15: [id number] 00 Respiratory nebulizer Respirator Resolve 2019-04-09 Evi treatment y d 9 14:30:00 Hai in home 12:15: [id number] 00 Endo/Hugo knowledge/s Endo/Hugo Resolve 2019-06-25 Evi kill d 04-02 12:00:00 Hai deficit: pt 12:15: [id number] 00 Endo/Hugo knowledge/s Endo/Hugo Resolve 2019-06-25 Evi kill d 04-02 12:00:00 Hai deficit 12:15: [id number] hypo/hyperg 00 lycemia: pt Respiratory smoker Respirator Resolve 2019-04-09 Evi y d 04-09 14:30:00 Hai 14:30: [id number] 00 Endo/Hugo glucose Endo/Hugo Resolve 2019-04-09 Evi tolerance d 9-10 14:30:00 Hai problem 14:30: [id number] 00 Respiratory oxygen Respirator Resolve 2019-04-23 Evi treatments y d 9-16 14:15:00 Hai in home 14:00: [id number] 00 Respiratory smoker Respirator Resolve 2019-04-23 Evi y d 9-16 14:15:00 Hai 14:00: [id number] 00 Respiratory nebulizer Respirator Resolve 2019-04-23 Evi treatment y d 9-16 14:15:00 Hai in home 14:00: [id number] 00 Endo/Hugo anti-coagul Endo/Hugo Resolve 2019-04-23 Evi ation d 9- 14:15:00 Hai therapy 14:00: [id number] 00 Endo/Hugo glucose Endo/Hugo Resolve 2019-04-23 Evi tolerance d 24 14:15:00 Hai problem 14:15: [id number] 00 Respiratory lung sounds Respirator Resolve 2018-072019-05-07 Evi deficit y d 0-01 15:20:00 Hai 11:06: [id number] 00 Respiratory smoker Respirator Resolve 2018-072019-05-07 Evi y d 0-01 15:20:00 Hai 11:06: [id number] 00 Respiratory oxygen Respirator Resolve 2018-072019-05-15 Evi treatments y d 0-08 10:00:00 Hai in home 15:20: [id number] 00 Respiratory nebulizer Respirator Resolve 2018-072019-05-15 Evi treatment y d 0-08 10:00:00 Hai in home 15:20: [id number] 00 Respiratory lung sounds Respirator Resolve 2018-072019-05-15 Evi deficit y d 0-16 10:00:00 Hai 10:00: [id number] 00 Respiratory lung sounds Respirator Resolve 2018-072019-05-28 Evi deficit y d 0-23 13:15:00 Hai 09:30: [id number] 00 Respiratory oxygen Respirator Resolve 2018-072019-08-13 Evi treatments y d 0-29 10:50:00 Hai in home 13:15: [id number] 00 Respiratory nebulizer Respirator Resolve 2018-072019-08-13 Evi treatment y d 0-29 10:50:00 Hai in home 13:15: [id number] 00 Respiratory smoker Respirator Resolve 2018-072019-05-28 Evi y d 0-29 13:15:00 Hai 13:15: [id number] 00 Respiratory lung sounds Respirator Resolve 2018-072019-06-04 Evi deficit y d 1-05 12:00:00 Hai 12:00: [id number] 00 Respiratory lung sounds Respirator Resolve 2018-072019-06-25 Evi deficit y d 1-11 12:00:00 Hai 11:00: [id number] 00 Respiratory smoker Respirator Resolve 2018-072019-06-18 Evi y d 1-11 12:45:00 Hai 11:00: [id number] 00 Integument other wound Integument Resolve 2018-072019-06-18 Evi present d 1-11 12:45:00 Hai 11:00: [id number] 00 Safety fall risk Safety Resolve 2018-072019-06-25 Evi factor d 1-11 12:00:00 Hai present 11:00: [id number] 00 Respiratory smoker Respirator Resolve 2018-072019-06-25 Evi y d 1- 12:00:00 Hai 12:00: [id number] 00 Neuro anxiety Neuro/Emot Active 2018-07 Evi present ion - Hai 12:00: [id number] 00 Neuro memory Neuro/Emot Active 2018-07 Evi deficit ion - Hai needing 12:00: [id number] 00 Respiratory smoker Respirator Resolve 2018-072019-07-30 Evi y d 2-03 11:00:00 Hai 11:45: [id number] 00 Respiratory lung sounds Respirator Resolve 2018-072019-07-30 Evi deficit y d 2-11 11:00:00 Hai 13:05: [id number] 00 Safety risk for Safety Resolve 2018-072019-07-10 Evi hospitaliza d 2-11 13:05:00 Hai tion 13:05: [id number] 00 Safety risk for Safety [facility] 2018[facility]072019[facility]07-[facility] 11:[facility]:00 Hai tion 15:00: [id number] 00 Safety risk for Safety Resolve 2018-072019-07-30 [facility] 11:00:00 Hai tion 11:00: [id number] 00 Safety risk for Safety Resolve 2019-08-13 [facility] 10:50:00 Hai tion 12:30: [id number] 00 Medication potential Meds Active Evi clinically 08-06 Hai significant 12:30: [id number] medication 00 issue Cardio hypertensio Cardiovasc Resolve 2019-08-27 Evi n ular d 08-13 11:10:00 Hai 10:50: [id number] 00 Respiratory knowledge/s Respirator Resolve 2019-08-13 Evi kill y d 08-13 10:50:00 Hai deficit: pt 10:50: [id number] 00 Respiratory lung sounds Respirator Resolve 2019-08-13 Evi deficit y d 08-13 10:50:00 Hai 10:50: [id number] 00 Respiratory smoker Respirator Resolve 0 2019-08-13 Evi y d 08-13 10:50:00 Hai 10:50: [id number] 00 Integument other wound Integument Resolve 2019-09-04 Evi present d 08-13 11:25:00 Hai 10:50: [id number] 00 Neuro depressive Neuro/Emot Active Evi feelings ion 08-13 Hai present 10:50: [id number] 00 Medication knowledge/s Meds Active Evi kill - Hai deficit: pt 10:50: [id number] 00 Respiratory oxygen Respirator Active Evi treatments y -21 Hai in home 13:20: [id number] 00 Respiratory knowledge/s Respirator Active Evi kill y -21 Hai deficit: pt 13:20: [id number] 00 Respiratory lung sounds Respirator Active Evi deficit y - Hai 13:20: [id number] 00 Respiratory smoker Respirator Active 2019- Evi y 08-20 Hai 13:20: [id number] 00 Respiratory nebulizer Respirator Active Evi treatment y 08-20 Hai in home 13:20: [id number] 00 Endo/Hugo glucose Endo/Hugo Resolve 2019-09-04 Evi tolerance d 08-20 11:25:00 Hai problem 13:20: [id number] 00 Endo/Hugo knowledge/s Endo/Hugo Resolve 2019-09-04 Evi kill d 08-20 11:25:00 Hai deficit: pt 13:20: [id number] 00 Endo/Hugo knowledge/s Endo/Hugo Resolve 2019-09-04 Evi kill d 08-20 11:25:00 Hai deficit 13:20: [id number] hypo/hyperg 00 lycemia: pt Neuro impaired Neuro/Emot Active Evi decision-ma ion 08-27 Hai zainab 11:10: [id number] 00 Allergies, Adverse Reactions, Alerts Allergy Allergy [...] liter Unknown permeable permeable 09-04 ,[place] lens contact lens [place] cleaner liquid liquid FLUoxetine FLUoxetine No Darlow [...] capsule 9-16 Hugo DUMONT Spiriva Spiriva 2018-07 No Samantha Unknown Unknown Respimat Respimat 1-11 ,Citlali 2.5 2.5 mcg/actuati mcg/actuati on solution [...] Yes Darlow Unknown Unknown U-100 U-100 08-20 MD,[place] Insulin 100 Insulin 100 unit/mL unit/mL subcutaneou [...]
--- OUTSIDE RECORDS SUMMARY | 2019-09-17 05:41 | XMS REPORT ---
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, disease, unspecified unspecified Essential Essential Diagnosis Active Evi (primary) (primary) 2- Hai hypertensio hypertensio [id number] n n Other Other Diagnosis Active Evi chronic chronic 2-05 Hai pain pain [id number] 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, disorder, 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, recurrent, unspecified unspecified Gastro-esop Gastro-esop Diagnosis Active Evi hageal hageal 2- Hai reflux reflux [id number] disease disease without without esophagitis esophagitis 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 [id number] Low back Low back Diagnosis Active Evi pain pain Hai [id number] Hyperlipide Hyperlipide Diagnosis Active Evi hank, hank, Hai unspecified unspecified [id number] Hypothyroid Hypothyroid Diagnosis Active Evi ism, ism, Hai unspecified unspecified [id number] Respiratory treatments Respirator Resolve 2016-10-17 Chelsea ordered y d 2- 12:30:00 Son [id number] Pain frequent Pain Mgmt Resolve 2018-08-28 [place] pain d 2- 12:45:00 Son 13:13: [id number] 00 Pain knowledge/s Pain Mgmt Resolve 2015-09-09 [place] kill d 09-04 10:40:00 Son deficit: pt 13:13: [id number] 00 Pain severe pain Pain Mgmt Resolve 29 Chelsea d 2-05 12:45:00 Son 13:13: [id number] 00 Respiratory dyspnea Respirator Resolve 2016-10-17 Chelsea present y d 2- 12:30:00 Son 13:13: [id number] 00 Respiratory oxygen Respirator Resolve 2016-10-17 [place] treatments y d 2- 12:30:00 Son in home 13:13: [id number] 00 Respiratory knowledge/s Respirator Resolve 2015-09-16 Chelsea kill y d 2- 12:00:00 Son deficit: pt 13:13: [id number] 00 Respiratory lung sounds Respirator Resolve 2016-06-29 [place] deficit y d 2 13:03:00 Son 13:13: [id number] 00 Endo/Hugo knowledge/s Endo/Hugo Resolve 2015-09-16 [place] kill d 2- 12:00:00 Son deficit: pt 13:13: [id number] 00 Endo/Hugo diabetic Endo/Hugo Resolve 2016-06-29 Chelsea foot care d 2- 13:03:00 Son 13:13: [id number] 00 Nutrition knowledge/s Nutrition Resolve 2015-09-04 [place] kill d 2 13:13:00 Son deficit: pt 13:13: [id number] 00 Neuro anxiety Neuro/Emot Resolve 2016-08-02 Chelsea present ion d 2- 10:30:00 Son 13:13: [id number] 00 Neuro depressive Neuro/Emot Resolve 2016-08-02 Chelsea feelings ion d 2- 10:30:00 Son present 13:13: [id number] 00 Neuro knowledge/s Neuro/Emot Resolve 2015-09-16 Chelsea kill ion d 2- 12:00:00 Son deficit: pt 13:13: [id number] 00 Activity ADL Activity Resolve 2016-04-27 [place] assistance d 2- 11:15:00 Son required 13:13: [id number] 00 Activity knowledge/s Activity Resolve 2016-03-01 [place] kill d 2- 12:00:00 Son deficit: pt 13:13: [id number] 00 Safety fall risk Safety Resolve 2015-09-16 Chelsea factor d 2-05 12:00:00 Cline present 13:13: [id number] 00 Safety risk for Safety Resolve 2015-09-16 Chelsea hospitaliza d 2-05 12:00:00 Cline tion 13:13: [id number] 00 Medication oral med Meds Resolve 2016-08-02 [place] assistance d 2-05 10:30:00 Cline required 13:13: [id number] 00 Medication injectable Meds Resolve 2016-08-02 Chelsea med d 2-05 10:30:00 Cline assistance 13:13: [id number] required 00 Medication knowledge/s Meds Resolve 2016-06-29 [place] kill d 2-05 13:03:00 Son deficit: pt 13:13: [id number] 00 Medication potential Meds Resolve 2016-08-02 Chelsea clinically d 2- 10:30:00 Son significant 13:13: [id number] medication 00 issue Diagnoses knowledge/s Diagnoses Active Chelsea kill - Cline deficit: pt 13:13: [id number] 00 Pain knowledge/s Pain Mgmt Resolve 2015-09-16 Cherrise kill d 2- 12:00:00 [place] deficit: pt 12:00: [id number] 00 Safety sanitation Safety Resolve 2016-03-01 Cherrise hazards d 2-17 12:00:00 Abbe present 12:00: [id number] 00 Safety risk for Safety Resolve 2016-03-01 Cherrise hospitaliza d 2-18 12:00:00 [place] tion 12:15: [id number] 00 Neuro knowledge/s Neuro/Emot Resolve 2016-08-16 Cherrise kill ion d 2- 12:45:00 [place] deficit: pt 13:29: [id number] Safety structural Safety Resolve 2016-03-01 Cherrise barriers d 2- 12:00:00 [place] present 13:29: [id number] 57 Respiratory knowledge/s Respirator Resolve 2016-04-27 Chelsea kill y d 10-27 11:15:00 Son deficit: cg 09:40: [id number] 00 Pain frequent Pain Mgmt Resolve 2018-08-28 Chelsea pain d 11-03 12:45:00 Son 13:04: [id number] 00 Pain knowledge/s Pain Mgmt Resolve 2016-02-24 [place] kill d 11-03 13:35:00 Son deficit: pt 13:04: [id number] 00 Respiratory knowledge/s Respirator Resolve 2016-04-27 [place] kill y d 11-03 11:15:00 Son deficit: pt 13:04: [id number] 00 Safety fall risk Safety Resolve 2016-03-01 [place] factor d 11-03 12:00:00 Son present 13:04: [id number] 00 Endo/Hugo insulin Endo/Hugo Resolve 2016-10-17 Chelsea admn d 11-24 12:30:00 Son dependence 10:48: [id number] 00 Safety safety Safety Resolve 2016-03-01 [place] hazards d 12-22 12:00:00 Cline present 09:15: [id number] 00 Elimination constipatio Eliminatio Resolve 2016-03-01 Chelsea n n d 12-29 12:00:00 Son 13:33: [id number] 00 IV IV present IV Resolve 2016-01-26 Chelsea d 12-29 11:50:00 Son 13:33: [id number] 00 Integument skin Integument Resolve 2016-04-27 Anna integrity d 01-25 11:15:00 Regeczi risk 11:50: [id number] 00 Nutrition knowledge/s Nutrition Resolve 2016-03-01 Cherrise kill d 02-26 12:00:00 Abbe deficit: pt 10:00: [id number] 00 Pain frequent Pain Mgmt Resolve 2018-08-28 [place] pain d 03-01 12:45:00 Son 12:00: [id number] 00 Nutrition knowledge/s Nutrition Resolve 2016-04-06 Neida kill d 03-23 14:54:00 Malnoske deficit: pt 13:30: RN 00 Endo/Hugo insulin Endo/Hugo Resolve 2016-10-17 [place] admn d 04-06 12:30:00 Cline dependence 14:54: [id number] 00 Nutrition changing Nutrition Resolve 2016-05-10 Chelsea weight/appe d 04-27 11:45:00 Son tite 11:15: [id number] 00 Nutrition knowledge/s Nutrition Resolve 2016-04-27 [place] kill d 04-27 11:15:00 Son deficit: pt 11:15: [id number] 00 Cardio hypertensio Cardiovasc Resolve 2016-09-20 Evi n ular d 08-02 10:00:00 Hai 10:30: [id number] 00 Respiratory lung sounds Respirator Resolve 2016-08-25 Evi deficit y d 08-02 10:30:00 Hai 10:30: [id number] 00 Respiratory CPAP Respirator Resolve 2016-10-17 Evi treatments y d 08-02 12:30:00 Hai in home 10:30: [id number] 00 Respiratory dyspnea Respirator Resolve 2016-10-17 Evi present y d 08-02 12:30:00 Hai 10:30: [id number] 00 Respiratory oxygen Respirator Resolve 2016-10-17 Evi treatments y d 08-02 12:30:00 Hai in home 10:30: [id number] 00 Integument knowledge/s Integument Resolve 2016-08-16 Evi kill d 08-02 12:45:00 Hai deficit: pt 10:30: [id number] 00 Medication knowledge/s Meds Resolve 2016-08-25 Evi kill d 08-02 10:30:00 Hai deficit: pt 10:30: [id number] 00 Neuro anxiety Neuro/Emot Resolve 2016-10-17 Evi present ion d 08-16 12:30:00 Hai 12:45: [id number] 00 Integument knowledge/s Integument Resolve 2016-08-25 Evi kill d 08-25 10:30:00 Hai deficit: pt 10:30: [id number] 00 Nutrition nutritional Nutrition Resolve 2016-08-25 Evi restriction d 08-25 10:30:00 Hai s 10:30: [id number] 00 Neuro knowledge/s Neuro/Emot Resolve 2016-2016-08-25 Evi kill ion d 08-25 10:30:00 Hai deficit: pt 10:30: [id number] 00 Medication oral med Meds Resolve 2016-08-25 Evi assistance d 08-25 10:30:00 Hai required 10:30: [id number] 00 Respiratory oxygen Respirator Unknown Evi treatments y 2-06 Hai in home 14:30: [id number] 00 Integument knowledge/s Integument Resolve 2016-09-05 Evi kill d 09-05 14:30:00 Hai deficit: pt 14:30: [id number] 00 Medication oral med Meds Resolve 2016-10-17 Evi assistance d 09-05 12:30:00 Hai required 14:30: [id number] 00 Medication knowledge/s Meds Resolve 2016-12-05 Evi kill d 09-05 17:00:00 Hai deficit: pt 14:30: [id number] 00 Respiratory lung sounds Respirator Resolve 2016-09-20 Evi deficit y d 2- 10:00:00 Hai 10:00: [id number] 00 Integument knowledge/s Integument Resolve 2016-10-17 Evi kill d 2- 12:30:00 Hai deficit: pt 10:00: [id number] 00 Integument other wound Integument Resolve 2016-10-17 Evi present d 2- 12:30:00 Hai 10:00: [id number] 00 Respiratory lung sounds Respirator Resolve 2018-10-09 Evi deficit y d 3-06 12:40:00 Hai 15:00: [id number] 00 Respiratory CPAP Respirator Unknown Evi treatments y 3-06 Hai in home 15:00: [id number] 00 Respiratory smoker Respirator Resolve 2016-10-17 Evi y d 3-06 12:30:00 Hai 15:00: [id number] 00 Respiratory nebulizer Respirator Unknown Evi treatment y 3-06 Hai in home 15:00: [id number] 00 Respiratory dyspnea Respirator Resolve 2016-11-07 Evi present y d 10-25 12:20:00 Hai 14:15: [id number] 00 Respiratory oxygen Respirator Unknown Evi treatments y 10-25 Hai in home 14:15: [id number] 00 Respiratory smoker Respirator Resolve 2016-11-07 Evi y d 10-25 12:20:00 Hai 14:15: [id number] 00 Integument other wound Integument Resolve 2016-10-25 Evi present d 10-25 14:15:00 Hai 14:15: [id number] 00 Nutrition nutritional Nutrition Resolve 2016-11-07 Evi restriction d 10-25 12:20:00 Hai s 14:15: [id number] 00 Neuro anxiety Neuro/Emot Resolve 2016-11-07 Evi present ion d 10-25 12:20:00 Hai 14:15: [id number] 00 Medication oral med Meds Resolve 2016-12-05 Evi assistance d 10-25 17:00:00 Hai required 14:15: [id number] 00 Medication potential Meds Resolve 2016-12-05 Evi clinically d 11-07 17:00:00 Hai significant 12:20: [id number] medication 00 issue Respiratory dyspnea Respirator Resolve 2016-11-21 Evi present y d 11-14 13:30:00 Hai 14:00: [id number] 00 Respiratory oxygen Respirator Unknown Evi treatments y 11-21 Hai in home 13:30: [id number] 00 Respiratory lung sounds Respirator Resolve 2018-10-09 Evi deficit y d 11-21 12:40:00 Hai 13:30: [id number] 00 Respiratory smoker Respirator Resolve 2016-11-21 Evi y d 11-21 13:30:00 Hai 13:30: [id number] 00 Respiratory nebulizer Respirator Unknown Evi treatment y 11-21 Hai in home 13:30: [id number] 00 Neuro anxiety Neuro/Emot Resolve 2016-12-25 Evi present ion d 11-21 13:30:00 Hai 13:30: [id number] 00 Respiratory oxygen Respirator Resolve 2018-09-18 Evi treatments y d 12-05 13:30:00 Hai in home 17:00: [id number] 00 Respiratory smoker Respirator Resolve 2016-12-05 Evi y d 12-05 17:00:00 Hai 17:00: [id number] 00 Respiratory nebulizer Respirator Resolve 2018-09-18 Evi treatment y d 12-05 13:30:00 Hai in home 17:00: [id number] 00 Endo/Hugo knowledge/s Endo/Hugo Resolve 2016-12-19 Evi kill d 12-05 13:00:00 Hai deficit: pt 17:00: [id number] 00 Medication knowledge/s Meds Resolve 2016-12-25 Evi kill d 12-19 13:30:00 Hai deficit: pt 13:00: [id number] 00 Respiratory dyspnea Respirator Resolve 2017-02-27 Evi present y d 12-25 12:30:00 Hai 13:30: [id number] 00 Integument other wound Integument Resolve 2017-01-02 Evi present d 12-25 11:50:00 Hai 13:30: [id number] 00 Medication knowledge/s Meds Resolve 2016-12-25 Evi kill d 12-25 13:30:00 Hai deficit: pt 13:30: [id number] 00 Respiratory smoker Respirator Resolve 2017-01-16 Evi y d 01-16 15:00:00 Hai 15:00: [id number] 00 Respiratory lung sounds Respirator Resolve 2017-02-13 Evi deficit y d 02-13 12:45:00 Hai 12:45: [id number] 00 Respiratory smoker Respirator Resolve 2017-02-13 Evi y d 02-13 12:45:00 Hai 12:45: [id number] 00 Respiratory smoker Respirator Resolve 2017-02-27 Evi y d 02-24 12:30:00 Hai 13:00: [id number] 00 Integument other wound Integument Resolve 2017-02-24 Evi present d 02-24 13:00:00 Hai 13:00: [id number] 00 Nutrition nutritional Nutrition Resolve 2017-04-03 Tammee restriction d - 12:25:00 Eric garcia 13:00: an 00 Integument other wound Integument Resolve 2017-05-01 Evi present d 04-25 12:15:00 Hai 13:00: [id number] 00 Neuro depressive Neuro/Emot Resolve 2017-05-01 Evi feelings ion d 04-25 12:15:00 Hai present 13:00: [id number] 00 Neuro anxiety Neuro/Emot Resolve 2017-05-01 Evi present ion d 04-25 12:15:00 Hai 13:00: [id number] 00 Respiratory lung sounds Respirator Resolve 2016-072017-05-01 Evi deficit y d 0- 12:15:00 Hai 12:15: [id number] 00 Respiratory smoker Respirator Resolve 2016-072017-06-12 Evi y d 1- 11:14:00 Hai 11:14: [id number] 00 Respiratory smoker Respirator Resolve 2016-072017-06-21 Evi y d 08-21 11:15:00 Hai 11:15: [id number] 00 Integument other wound Integument Resolve 2016-072017-06-21 Evi present d 08-21 11:15:00 Hai 11:15: [id number] 00 Respiratory lung sounds Respirator Resolve 2016-072017-06-26 Evi deficit y d 08-26 12:15:00 Hai 12:15: [id number] 00 Respiratory lung sounds Respirator Unknown 2016-07 Evi deficit y 2-11 Hai 12:20: [id number] 00 Respiratory smoker Respirator Resolve 2016-072017-08-03 Evi y d 2-28 11:30:00 Hai 12:10: [id number] 00 Respiratory lung sounds Respirator Resolve 2017-08-03 Evi deficit y d 1- 11:30:00 Hai 11:30: [id number] 00 Respiratory lung sounds Respirator Resolve 2017-08-07 Evi deficit y d 1- 10:20:00 Hai 10:20: [id number] 00 Respiratory smoker Respirator Resolve 2017-08-07 Evi y d 1-08 10:20:00 Hai 10:20: [id number] 00 Respiratory lung sounds Respirator Resolve 2017-2017-08-14 Evi deficit y d 1-15 11:30:00 Hai 11:30: [id number] 00 Respiratory smoker Respirator Resolve 2017-2017-08-14 Evi y d 1-15 11:30:00 Hai 11:30: [id number] 00 Integument other wound Integument Resolve 2017-2017-08-21 Evi present d 1- 10:50:00 Hai 10:50: [id number] 00 Respiratory smoker Respirator Resolve 2017-2017-09-04 Evi y d 1- 12:40:00 Hai 12:30: [id number] 00 Respiratory lung sounds Respirator Resolve 2017-09-11 Evi deficit y d 2-12 13:00:00 Hai 13:00: [id number] 00 Respiratory lung sounds Respirator Resolve 2017-09-20 Evi deficit y d 2-21 11:15:00 Hai 11:15: [id number] 00 Respiratory lung sounds Respirator Resolve 2017-2017-09-27 Evi deficit y d 2-28 11:45:00 Hai 11:45: [id number] 00 Respiratory lung sounds Respirator Resolve 2017-10-18 Evi deficit y d 3-21 11:00:00 Hai 11:00: [id number] 00 Respiratory smoker Respirator Resolve 2017-10-18 Evi y d 3-21 11:00:00 Hai 11:00: [id number] 00 Integument other wound Integument Resolve 2017-10-25 Evi present d 3-21 11:00:00 Hai 11:00: [id number] 00 Respiratory lung sounds Respirator Resolve 2018-10-09 Evi deficit y d 4-10 12:40:00 Hai 14:45: [id number] 00 Respiratory smoker Respirator Resolve 2017-2017-11-15 Evi y d 4-18 11:00:00 Hai 11:00: [id number] 00 Respiratory lung sounds Respirator Resolve 2017-2018-10-09 Evi deficit y d 4-25 12:40:00 Hai 13:40: [id number] 00 Respiratory smoker Respirator Resolve 2017-11-22 Evi y d 11-22 13:40:00 Hai 13:40: [id number] 00 Respiratory smoker Respirator Resolve 2017-12-06 Evi y d 12-06 13:15:00 Hai 13:15: [id number] 00 Respiratory lung sounds Respirator Resolve 2017-12-13 Evi deficit y d 12-13 13:00:00 Hai 13:00: [id number] 00 Respiratory lung sounds Respirator Resolve 2017-12-26 Evi deficit y d 12-20 12:05:00 Hai 13:15: [id number] 00 Integument other wound Integument Resolve 2017-12-26 Evi present d 12-20 12:05:00 Hai 13:15: [id number] 00 Respiratory lung sounds Respirator Resolve 2018-01-03 Evi deficit y d 06 12:38:00 Hai 12:38: [id number] 00 Respiratory lung sounds Respirator Resolve 2018-10-09 Evi deficit y d 6-13 12:40:00 Hai 15:00: [id number] 00 Respiratory smoker Respirator Resolve 2018-01-10 Evi y d 6-13 15:00:00 Hai 15:00: [id number] 00 Respiratory lung sounds Respirator Resolve 2018-01-24 Evi deficit y d 6- 13:10:00 Hai 13:10: [id number] 00 Nutrition nutritional Nutrition Resolve 2019-08-13 Evi restriction d 6 10:50:00 Hai s 13:10: [id number] 00 Safety sanitation Safety Resolve 2018-06-05 Evi hazards d 6- 10:35:00 Hai present 13:10: [id number] 00 Safety fall risk Safety Resolve 2018-02-19 Evi factor d 6 14:02:00 Hai present 13:10: [id number] 00 Safety risk for Safety Resolve 2018-10-30 Evi hospitaliza d 01-24 13:06:00 Hai tion 13:10: [id number] 00 Safety structural Safety Resolve 2018-02-19 Evi barriers d 01-24 14:02:00 Hai present 13:10: [id number] 00 Safety safety Safety Resolve 2018-02-19 Evi hazards d 01-24 14:02:00 Hai present 13:10: [id number] 00 Medication oral med Meds Active Evi assistance 01-24 Hai required 13:10: [id number] 00 Medication injectable Meds Active Evi med 01-24 Hai assistance 13:10: [id number] 00 Respiratory lung sounds Respirator Resolve 2018-10-09 Evi deficit y d 01-29 12:40:00 Hai 13:45: [id number] 00 Respiratory smoker Respirator Resolve 2018-02-07 Evi y d 01-29 13:00:00 Hai 13:45: [id number] 00 Respiratory smoker Respirator Resolve 2018-03-01 Evi y d 02-19 11:42:00 Hai 14:02: [id number] 00 Integument other wound Integument Resolve 2018-03-21 Evi present d 02-19 15:30:00 Hai 14:02: [id number] 00 Respiratory smoker Respirator Resolve 2018-03-28 Evi y d 03-28 11:36:00 Hai 11:36: [id number] 00 Respiratory smoker Respirator Resolve 2018-04-03 Evi y d 04-03 14:00:00 Hai 14:00: [id number] 00 Respiratory smoker Respirator Resolve 2018-04-10 Evi y d 04-10 14:40:00 Hai 14:40: [id number] 00 Integument other wound Integument Resolve 2018-04-24 Evi present d 04-18 10:16:00 Hai 11:00: [id number] 00 Respiratory smoker Respirator Resolve 2017-072018-05-16 Evi y d 0 14:20:00 Hai 10:50: [id number] 00 Respiratory smoker Respirator Resolve 2017-072018-05-29 Evi y d 11:30:00 Hai 11:30: [id number] 00 Respiratory smoker Respirator Resolve 2017-072018-06-05 Evi y d 08-05 10:35:00 Hai 10:35: [id number] 00 Safety safety Safety Resolve 2017-072018-06-05 Evi hazards d 08-05 10:35:00 Hai present 10:35: [id number] 00 Integument other wound Integument Resolve 2017-072018-06-26 Evi present d 08-19 15:15:00 Hai 11:12: [id number] 00 Respiratory smoker Respirator Resolve 2017-072018-06-26 Evi y d 08-26 15:15:00 Hai 15:15: [id number] 00 Respiratory smoker Respirator Resolve 2017-072018-07-03 Evi y d 09-03 11:13:00 Hai 11:13: [id number] 00 Respiratory smoker Respirator Resolve 2017-072018-07-17 Evi y d 09-10 11:38:00 Hai 11:20: [id number] 00 Respiratory smoker Respirator Resolve 2017-072018-07-23 Evi y d 09-23 10:00:00 Hai 10:00: [id number] 00 Integument other wound Integument Resolve 2018-08-14 Evi present d 08-14 15:44:00 Hai 15:44: [id number] 00 Pain frequent Pain Mgmt Resolve 2018-08-28 Evi pain d 08-25 12:45:00 Hai 09:33: [id number] 56 Pain severe pain Pain Mgmt Resolve 2018-08-28 Evi d 08-25 12:45:00 Hai 09:33: [id number] 56 Integument other wound Integument Resolve 2018-08-28 Evi present d 08-25 12:45:00 Hai 09:33: [id number] 56 Respiratory smoker Respirator Resolve 2018-08-28 Evi y d 08-28 12:45:00 Hai 12:45: [id number] 00 Respiratory smoker Respirator Resolve 2018-09-04 Evi y d 09-04 11:30:00 Hai 11:30: [id number] 00 Respiratory smoker Respirator Resolve 2018-09-18 Evi y d 09-10 13:30:00 Hai 16:40: [id number] 00 Pain severe pain Pain Mgmt Resolve 2018-09-25 Evi d 2-19 10:30:00 Hai 13:30: [id number] 00 Neuro anxiety Neuro/Emot Unknown Evi present ion 09-18 Hai 13:30: [id number] 00 Respiratory oxygen Respirator Resolve 2018-10-16 Evi treatments y d 3-05 11:45:00 Hai in home 10:45: [id number] 00 Respiratory smoker Respirator Resolve 2018-10-09 Evi y d 3-05 12:40:00 Hai 10:45: [id number] 00 Respiratory nebulizer Respirator Resolve 2018-10-16 Evi treatment y d - 11:45:00 Hai in home 10:45: [id number] 00 Respiratory lung sounds Respirator Resolve 2018-10-16 Evi deficit y d 3 11:45:00 Hai 11:45: [id number] 00 Respiratory smoker Respirator Resolve 2018-10-16 Evi y d 3 11:45:00 Hai 11:45: [id number] 00 Integument other wound Integument Resolve 2018-10-23 Evi present d 10-16 11:20:00 Hai 11:45: [id number] 00 Respiratory nebulizer Respirator Resolve 2018-10-23 Evi treatment y d 10-23 11:20:00 Hai in home 11:20: [id number] 00 Safety safety Safety Resolve 2018-10-23 Evi hazards d 10-23 11:20:00 Hai present 11:20: [id number] 00 Respiratory lung sounds Respirator Unknown Evi deficit y 10-30 Hai 13:06: [id number] 00 Respiratory oxygen Respirator Resolve 2018-11-20 Evi treatments y d 11-06 10:35:00 Hai in home 11:31: [id number] 00 Respiratory smoker Respirator Resolve 2018-2018-11-06 Evi y d 11-06 11:31:00 Hai 11:31: [id number] 00 Respiratory nebulizer Respirator Resolve 2018-11-20 Vei treatment y d 11-06 10:35:00 Hai in home 11:31: [id number] 00 Safety risk for Safety Resolve 2018-11-12 Evi hospitaliza d 11-06 10:00:00 Hai tion 11:31: [id number] 00 Respiratory smoker Respirator Resolve 2018-11-20 Evi y d 11-12 10:35:00 Hai 10:00: [id number] 00 Respiratory lung sounds Respirator Resolve 2018-11-20 Evi deficit y d 11-20 10:35:00 Hai 10:35: [id number] 00 Safety risk for Safety Resolve 2018-11-27 Evi hospitaliza d 11-20 11:00:00 Hai tion 10:35: [id number] 00 Pain severe pain Pain Mgmt Resolve 2018-12-04 Evi d 11-27 11:35:00 Hai 11:00: [id number] 00 Respiratory oxygen Respirator Resolve 2018-12-12 Evi treatments y d 11-27 09:08:00 Hai in home 11:00: [id number] 00 Respiratory lung sounds Respirator Resolve 2018-12-04 Evi deficit y d 11-27 11:35:00 Hai 11:00: [id number] 00 Respiratory nebulizer Respirator Resolve 2018-12-12 Evi treatment y d 11-27 09:08:00 Hai in home 11:00: [id number] 00 Respiratory smoker Respirator Resolve 2018-12-04 Evi y d 12-04 11:35:00 Hai 11:35: [id number] 00 Safety risk for Safety Resolve 2018-12-12 Evi hospitaliza d 12-04 09:08:00 Hai tion 11:35: [id number] 00 Cardio hypertensio Cardiovasc Resolve 2018-12-18 Evi n ular d 12-12 14:00:00 Hai 09:08: [id number] 00 Respiratory lung sounds Respirator Resolve 2018-12-12 Evi deficit y d 12-12 09:08:00 Hai 09:08: [id number] 00 Respiratory smoker Respirator Resolve 2018-12-12 Evi y d 5-15 09:08:00 Hai 09:08: [id number] 00 Integument other wound Integument Resolve 2018-12-18 Evi present d 5-15 14:00:00 Hai 09:08: [id number] 00 Safety risk for Safety Resolve 2019-01-01 Evi hospitaliza d 12-18 13:20:00 Hai tion 14:00: [id number] 00 Cardio hypertensio Cardiovasc Resolve 2018-2019-01-01 Evi n ular d 12-25 13:20:00 Hai 10:30: [id number] 00 Respiratory oxygen Respirator Resolve 2018-2019-01-08 Evi treatments y d 12-25 11:00:00 Hai in home 10:30: [id number] 00 Respiratory lung sounds Respirator Resolve 2018-2019-01-01 Evi deficit y d 12-25 13:20:00 Hai 10:30: [id number] 00 Respiratory nebulizer Respirator Resolve 2019-01-08 Evi treatment y d 12-25 11:00:00 Hai in home 10:30: [id number] 00 Cardio hypertensio Cardiovasc Resolve 2019-01-15 Evi n ular d - 12:05:00 Hai 11:00: [id number] 00 Respiratory smoker Respirator Resolve 2019-01-08 Evi y d 6- 11:00:00 Hai 11:00: [id number] 00 Respiratory lung sounds Respirator Resolve 2018-2019-01-08 Evi deficit y d 6- 11:00:00 Hai 11:00: [id number] 00 Safety risk for Safety Resolve 2019-01-15 Evi hospitaliza d - 12:05:00 Hai tion 11:00: [id number] 00 Respiratory lung sounds Respirator Unknown Evi deficit y 6 Hai 12:05: [id number] 00 Respiratory nebulizer Respirator Resolve 2018-2019-01-22 Evi treatment y d 6- 11:45:00 Hai in home 12:05: [id number] 00 Respiratory oxygen Respirator Resolve 2018-2019-01-22 Evi treatments y d 6 11:45:00 Hai in home 11:45: [id number] 00 Respiratory smoker Respirator Resolve 2019-01-22 Evi y d 6 11:45:00 Hai 11:45: [id number] 00 Respiratory lung sounds Respirator Resolve 2018-2019-02-05 Evi deficit y d 01-29 11:30:00 Hai 11:40: [id number] 00 Respiratory smoker Respirator Resolve 2019-02-05 Evi y d 01-29 11:30:00 Hai 11:40: [id number] 00 Respiratory nebulizer Respirator Resolve 2019-02-05 Evi treatment y d 01-29 11:30:00 Hai in home 11:40: [id number] 00 Pain severe pain Pain Mgmt Resolve 2019-02-12 Evi d 02-08 13:30:00 Hai 16:30: [id number] 00 Respiratory oxygen Respirator Resolve 2019-02-19 Evi treatments y d 02-12 14:00:00 Hai in home 13:30: [id number] 00 Respiratory nebulizer Respirator Resolve 2019-02-19 Evi treatment y d 02-12 14:00:00 Hai in home 13:30: [id number] 00 Integument other wound Integument Resolve 2019-02-12 Evi present d 02-12 13:30:00 Hai 13:30: [id number] 00 Safety fall risk Safety Resolve 2019-02-12 Evi factor d 02-12 13:30:00 Hai present 13:30: [id number] 00 Safety risk for Safety Resolve 2019-07-02 Evi hospitaliza d 02-12 11:45:00 Hai tion 13:30: [id number] 00 Respiratory smoker Respirator Resolve 2019-02-19 Evi y d 02-19 14:00:00 Hai 14:00: [id number] 00 Integument knowledge/s Integument Resolve 2019-02-27 Evi kill d 02-19 11:00:00 Hai deficit: pt 14:00: [id number] 00 Respiratory nebulizer Respirator Unknown Evi treatment y 7-31 Hai in home 11:00: [id number] Respiratory smoker Respirator Resolve 2019-03-05 Evi y d 8 13:00:00 Hai 13:00: [id number] Respiratory lung sounds Respirator Resolve 2019-04-09 Evi deficit y d 8 14:30:00 Hai 13:00: [id number] Endo/Hugo glucose Endo/Hugo Resolve 2019-03-19 Evi tolerance d 03-05 13:30:00 Hai problem 13:00: [id number] 00 Endo/Hugo knowledge/s Endo/Hugo Resolve 2019-03-19 Evi kill d 03-05 13:30:00 Hai deficit 13:00: [id number] hypo/hyperg 00 lycemia: pt Integument other wound Integument Resolve 2019-03-05 Evi present d 03-05 13:00:00 Hai 13:00: [id number] 00 Respiratory oxygen Respirator Resolve 2019-03-26 Evi treatments y d 8-13 16:55:00 Hai in home 13:00: [id number] 00 Respiratory nebulizer Respirator Resolve 2019-03-26 Evi treatment y d 8-13 16:55:00 Hai in home 13:00: [id number] 00 Respiratory oxygen Respirator Resolve 2019-04-09 Evi treatments y d 903 14:30:00 Hai in home 12:15: [id number] 00 Respiratory nebulizer Respirator Resolve 2019-04-09 Evi treatment y d 9 14:30:00 Hai in home 12:15: [id number] 00 Endo/Hugo knowledge/s Endo/Hugo Resolve 2019-06-25 Evi kill d 04-02 12:00:00 Hai deficit: pt 12:15: [id number] 00 Endo/Hugo knowledge/s Endo/Hguo Resolve 2019-06-25 Evi kill d 04-02 12:00:00 Hai deficit 12:15: [id number] hypo/hyperg 00 lycemia: pt Respiratory smoker Respirator Resolve 2019-04-09 Evi y d 04-09 14:30:00 Hai 14:30: [id number] 00 Endo/Hugo glucose Endo/Hugo Resolve 2019-04-09 Evi tolerance d 9-10 14:30:00 Hai problem 14:30: [id number] 00 Respiratory oxygen Respirator Resolve 2019-04-23 Evi treatments y d 9-16 14:15:00 Hai in home 14:00: [id number] 00 Respiratory smoker Respirator Resolve 2019-04-23 Evi y d 9-16 14:15:00 Hai 14:00: [id number] 00 Respiratory nebulizer Respirator Resolve 2019-04-23 Evi treatment y d 9-16 14:15:00 Hai in home 14:00: [id number] 00 Endo/Hugo anti-coagul Endo/Hugo Resolve 2019-04-23 Evi ation d 9- 14:15:00 Hai therapy 14:00: [id number] 00 Endo/Hugo glucose Endo/Hugo Resolve 2019-04-23 Evi tolerance d 24 14:15:00 Hai problem 14:15: [id number] 00 Respiratory lung sounds Respirator Resolve 2018-072019-05-07 Evi deficit y d 0-01 15:20:00 Hai 11:06: [id number] 00 Respiratory smoker Respirator Resolve 2018-072019-05-07 Evi y d 0-01 15:20:00 Hai 11:06: [id number] 00 Respiratory oxygen Respirator Resolve 2018-072019-05-15 Evi treatments y d 0-08 10:00:00 Hai in home 15:20: [id number] 00 Respiratory nebulizer Respirator Resolve 2018-072019-05-15 Evi treatment y d 0-08 10:00:00 Hai in home 15:20: [id number] 00 Respiratory lung sounds Respirator Resolve 2018-072019-05-15 Evi deficit y d 0-16 10:00:00 Hai 10:00: [id number] 00 Respiratory lung sounds Respirator Resolve 2018-072019-05-28 Evi deficit y d 0-23 13:15:00 Hai 09:30: [id number] 00 Respiratory oxygen Respirator Resolve 2018-072019-08-13 Evi treatments y d 0-29 10:50:00 Hai in home 13:15: [id number] 00 Respiratory nebulizer Respirator Resolve 2018-072019-08-13 Evi treatment y d 0-29 10:50:00 Hai in home 13:15: [id number] 00 Respiratory smoker Respirator Resolve 2018-072019-05-28 Evi y d 0-29 13:15:00 Hai 13:15: [id number] 00 Respiratory lung sounds Respirator Resolve 2018-072019-06-04 Evi deficit y d 1-05 12:00:00 Hai 12:00: [id number] 00 Respiratory lung sounds Respirator Resolve 2018-072019-06-25 Evi deficit y d 1-11 12:00:00 Hai 11:00: [id number] 00 Respiratory smoker Respirator Resolve 2018-072019-06-18 Evi y d 1-11 12:45:00 Hai 11:00: [id number] 00 Integument other wound Integument Resolve 2018-072019-06-18 Evi present d 1-11 12:45:00 Hai 11:00: [id number] 00 Safety fall risk Safety Resolve 2018-072019-06-25 Evi factor d 1-11 12:00:00 Hai present 11:00: [id number] 00 Respiratory smoker Respirator Resolve 2018-072019-06-25 Evi y d 1- 12:00:00 Hai 12:00: [id number] 00 Neuro anxiety Neuro/Emot Active 2018-07 Evi present ion - Hai 12:00: [id number] 00 Neuro memory Neuro/Emot Active 2018-07 Evi deficit ion - Hai needing 12:00: [id number] 00 Respiratory smoker Respirator Resolve 2018-072019-07-30 Evi y d 2-03 11:00:00 Hai 11:45: [id number] 00 Respiratory lung sounds Respirator Resolve 2018-072019-07-30 Evi deficit y d 2-11 11:00:00 Hai 13:05: [id number] 00 Safety risk for Safety Resolve 2018-072019-07-10 Evi hospitaliza d 2-11 13:05:00 Hai tion 13:05: [id number] 00 Safety risk for Safety Resolve 2018-072019-07-[facility] H[facility] tion 15:00: [id number] 00 Safety risk for Safety Resolve 2018-072019-07-30 Evi [facility] d 11:00:00 Hai tion 11:00: [id number] 00 Safety risk for Safety Resolve 2019-2019-08-13 Evi [facility] d 08-06 10:50:00 Hai tion 12:30: [id number] Medication potential Meds Active 2019- Evi clinically 08-06 Hai significant 12:30: [id number] medication 00 issue Cardio hypertensio Cardiovasc Resolve 2019-0 2019-08-27 Evi n ular d 08-13 11:10:00 Hai 10:50: [id number] 00 Respiratory knowledge/s Respirator Resolve 2019-0 2019-08-13 Evi kill y d 08-13 10:50:00 Hai deficit: pt 10:50: [id number] 00 Respiratory lung sounds Respirator Resolve 0 2019-08-13 Evi deficit y d 08-13 10:50:00 Hai 10:50: [id number] 00 Respiratory smoker Respirator Resolve 2019-0 2019-08-13 Evi y d 08-13 10:50:00 Hai 10:50: [id number] 00 Integument other wound Integument Active 2019- Evi present 08-13 Hai 10:50: [id number] 00 Neuro depressive Neuro/Emot Active Evi feelings ion -14 Hai present 10:50: [id number] 00 Medication knowledge/s Meds Active Evi kill 08-13 Hai deficit: pt 10:50: [id number] 00 Respiratory oxygen Respirator Active Evi treatments y 1-21 Hai in home 13:20: [id number] 00 Respiratory knowledge/s Respirator Active 2019- Evi kill y -21 Hai deficit: pt 13:20: [id number] 00 Respiratory lung sounds Respirator Active Evi deficit y -21 Hai 13:20: [id number] 00 Respiratory smoker Respirator Active 2019- Evi y - Hai 13:20: [id number] 00 Respiratory nebulizer Respirator Active Evi treatment y 1-21 Hai in home 13:20: [id number] 00 Endo/Hugo glucose Endo/Hugo Active Evi tolerance 1-21 Hai problem 13:20: [id number] 00 Endo/Hugo knowledge/s Endo/Hugo Active Evi kill 1-21 Hai deficit: pt 13:20: [id number] 00 Endo/Hugo knowledge/s Endo/Hugo Active Evi kill - Hai deficit 13:20: [id number] hypo/hyperg 00 lycemia: pt Neuro impaired Neuro/Emot Active Evi decision-ma ion - Hai zainab 11:10: [id number] 00 Allergies, Adverse Reactions, Alerts Allergy Allergy [...] 40 mg Unknown 40 mg 40 mg 2 ,Leroy capsule,del capsule,del ayed ayed release release hydroCHLORO hydroCHLORO No Darlow 12.5 mg Unknown thiazide thiazide 2 Lesli DUMONTyd 12.5 mg 12.5 mg tablet tablet cetirizine cetirizine No Darlow 10 mg Unknown 10 mg 10 mg 09-04 Leroy DUMONT tablet tablet albuterol albuterol No Darlow 1 amp Unknown sulfate 2.5 sulfate 2.5 2 MDLeroy mg/3 mL mg/3 mL (0.083 %) (0.083 %) solution solution for for nebulizatio nebulizatio n n Singulair Singulair No Darlow 10 mg Unknown 10 mg 10 mg 2 ,Leroy tablet tablet metoclopram metoclopram Darlow 5 mg Unknown sincere 5 mg sincere 5 mg 09-04- Leroy DUMONT tablet tablet Lipitor 80 Lipitor 80 No Darlow 80 mg Unknown mg tablet mg tablet 09-04 MD,Leroy lisinopril lisinopril No Darlow 20 mg Unknown 10 mg 10 mg 09-04 ,Leroy (2 abs) tablet tablet traMADol 50 traMADol 50 No Darlow 50 mg Unknown mg tablet mg [...] tablet 09-04 ,Leroy mupirocin 2 mupirocin 2 Darlow 1 Unknown % topical % topical 09-04 ,Leroy ointment ointment betamethaso betamethaso Darlow 1 Unknown ne valerate ne valerate 09-04 ,Leroy 0.1 % 0.1 % topical topical cream cream metFORMIN metFORMIN Darlow 1000 mg Unknown 1,000 mg 1,000 mg 09-04 ,Leroy tablet tablet Lyrica 75 Lyrica 75 Darlow 75 mg Unknown mg capsule mg capsule 09-04 ,Leroy HumaLOG HumaLOG No Darlow 5- 10 Unknown KwikPen KwikPen 09-04 ,Leroy units (U-100) (U-100) Insulin 100 Insulin 100 unit/mL unit/mL subcutaneou subcutaneou s s Lantus Lantus 2016- No Darlow 6-20 Unknown U-100 U-100 09-04- ,Leroy units Insulin 100 Insulin 100 unit/mL unit/mL subcutaneou subcutaneou s solution s solution benzonatate benzonatate 2017- No Darlow 200 mg Unknown 200 mg 200 mg 09-04- ,Leroy capsule capsule Symbicort Symbicort No Darlow 2 puffs Unknown 160 mcg-4.5 160 mcg-4.5 2- MD,Leroy mcg/actuati mcg/actuati on HFA on HFA aerosol aerosol inhaler inhaler FLUoxetine FLUoxetine 2015- No Darlow 40 mg Unknown 40 mg 40 mg 09-04- ,Leroy capsule capsule oxygen oxygen No Darlow 2 liter Unknown permeable permeable 09-04- ,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 FLUoxetine FLUoxetine No Darlow 3 caps Unknown 20 mg 20 mg 11-19 MD,Leroy (60 mg) capsule capsule Invokana Invokana 2018- No Darlow 100 mg Unknown 100 mg 100 mg 11-19- ,Leroy tablet tablet Benadryl 25 Benadryl 25 No Darlow 1-2 Unknown mg capsule mg capsule 01-26 ,Leroy tabs Oxygen Oxygen No Darlow 2 lpm Unknown - MD,Leroy traMADol ER traMADol ER 2016- No [place] one Unknown 300 mg 300 mg 03-10 ,Hugo daily capsule 24 capsule 24 hr,extended hr,extended release release metoclopram metoclopram 2017- No Darlow 1 tab Unknown sincere 5 mg sincere 5 mg 09-04- ,Leroy tablet tablet diazePAM 5 diazePAM 5 No Darlow 1 tab Unknown mg tablet mg tablet 04-15 ,Leroy amoxicillin amoxicillin 2015-07 No Darlow 1 Unknown [id number] 08-09 MD,Leroy mg-potassiu mg-potassiu m m clavulanate clavulanate 125 [...] ,Leroy tablet tablet Lyrica 150 Lyrica 150 2018- [...] 03-14 Leroy DUMONT topical topical ointment ointment Duragesic Duragesic 2018- No [place] Unknown Unknown 25 mcg/hr 25 mcg/hr 04-26 Hugo DUMONT transdermal transdermal patch patch lisinopril lisinopril No Darlow Unknown Unknown 20 mg 20 mg 10-07 ,Leroy tablet tablet Colace 100 Colace 100 2018- No Darlow Unknown Unknown mg capsule mg capsule 10-07- Leroy DUMONT Colace 100 Colace 100 2018- No Darlow Unknown Unknown mg capsule mg capsule 10-10 Leroy DUMONT Colace 100 Colace 100 No Darlow Unknown Unknown mg capsule mg capsule 11-20 MD,Leroy glimepiride glimepiride No Darlow Unknown Unknown 1 mg tablet 1 mg tablet 11-20 MD,Leroy triamcinolo triamcinolo 2018- No Darlow Unknown Unknown ne ne 01-08- ,Leory acetonide acetonide 0.025 % 0.025 % topical topical cream cream Lyrica 75 Lyrica 75 2018- No [place] Unknown Unknown mg capsule mg capsule 01-22 Hugo DUMONT Lyrica 100 Lyrica 100 2018- No [place] Unknown Unknown mg capsule mg capsule 02-06 ,Hugo Fluocinonid Fluocinonid No Yentzer Unknown Unknown e-E 0.05 % e-E 0.05 % 01-29 ,Shravan A topical topical cream cream ketoconazol ketoconazol No Yentzer Unknown Unknown e 2 % e 2 % 01-29 ,Shravan A shampoo shampoo Lantus Lantus 2018- No [...] [place] Unknown Unknown mg capsule mg capsule 16 Hugo DUMONT Spiriva Spiriva 2018-07 Yes Samantha Unknown Unknown Respimat Respimat 1-11 ,Citlali [...] Yes Darlow Unknown Unknown U-100 U-100 08-20 ,Leroy Insulin 100 Insulin 100 unit/mL unit/mL subcutaneou subcutaneou s solution s solution oxyCODONE 5 oxyCODONE 5 Yes Bael Unknown Unknown mg tablet mg tablet 08-20 MD,[place] magnesium magnesium 2019- Yes Bael Unknown Unknown oxide oxide 08-20 02-05 ,[place] magnesium magnesium Yes Bael Unknown Unknown oxide oxide 2-05 ,[place] Vital Signs Vital Name Observation Time Observation Value Comments SYSTOLIC mm[Hg] 2019-08-27 18:10:06 110 mm[Hg] mm[Hg] Method: Sit SYSTOLIC mm[Hg] 2019-08-14 18:09:53 170 mm[Hg] mm[Hg] Method: Stand DIASTOLIC mm[Hg] 2019-08-27 18:10:06 60 mm[Hg] mm[Hg] Method: Sit DIASTOLIC mm[Hg] 2019-08-14 18:09:53 88 mm[Hg] mm[Hg] Method: Stand PULSE 2019-08-27 18:10:06 90 /min /min RESP RATE 2019-08-27 18:10:06 16 /min /min TEMP 2019-08-27 18:10:06 97.8 [degF] Procedures This patient has no known procedures. Results This patient has no known results.
--- OUTSIDE RECORDS SUMMARY | 2019-09-17 05:41 | XMS REPORT ---
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 [id number] with with hyperglycem hyperglycem ia ia Chronic Chronic Diagnosis Active Evi obstructive obstructive 2- Hai pulmonary pulmonary [id number] disease, disease, unspecified unspecified Essential Essential Diagnosis Active Evi (primary) (primary) 2- Hai hypertensio hypertensio [id number] n n Other Other Diagnosis Active Evi chronic chronic 2-05 Hai pain pain [id number] 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, disorder, 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, recurrent, unspecified unspecified Gastro-esop Gastro-esop Diagnosis Active Evi hageal hageal 2-05 Hai reflux reflux [id number] disease disease without without esophagitis esophagitis 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 [id number] Low back Low back Diagnosis Active Evi pain pain Hai [id number] Hyperlipide Hyperlipide Diagnosis Active Evi hank, hank, Hai unspecified unspecified [id number] Hypothyroid Hypothyroid Diagnosis Active Evi ism, ism, Hai unspecified unspecified [id number] Respiratory treatments Respirator Resolve 2016-10-17 Chelsea ordered y d 2- 12:30:00 Son [id number] Pain frequent Pain Mgmt Resolve 2018-08-28 Chelsea pain d 2- 12:45:00 Son 13:13: [id number] 00 Pain knowledge/s Pain Mgmt Resolve 2015-09-09 Chelsea kill d 09-04 10:40:00 Son deficit: pt 13:13: [id number] 00 Pain severe pain Pain Mgmt Resolve 29 Chelsea d 2-05 12:45:00 Son 13:13: [id number] 00 Respiratory dyspnea Respirator Resolve 2016-10-17 Chelsea present y d 2- 12:30:00 Son 13:13: [id number] 00 Respiratory oxygen Respirator Resolve 2016-10-17 Chelsea treatments y d 2- 12:30:00 Son in home 13:13: [id number] 00 Respiratory knowledge/s Respirator Resolve 2015-09-16 Chelsea kill y d 2- 12:00:00 Son deficit: pt 13:13: [id number] 00 Respiratory lung sounds Respirator Resolve 2016-06-29 Chelsea deficit y d 2 13:03:00 Son 13:13: [id number] 00 Endo/Hugo knowledge/s Endo/Hugo Resolve 2015-09-16 Chelsea kill d 2- 12:00:00 Son deficit: pt 13:13: [id number] 00 Endo/Hugo diabetic Endo/Hugo Resolve 2016-06-29 Chelsea foot care d 2- 13:03:00 Son 13:13: [id number] 00 Nutrition knowledge/s Nutrition Resolve 2015-09-04 Chelsea kill d 2 13:13:00 Son deficit: pt 13:13: [id number] 00 Neuro anxiety Neuro/Emot Resolve 2016-08-02 Chelsea present ion d 2- 10:30:00 Son 13:13: [id number] 00 Neuro depressive Neuro/Emot Resolve 2016-08-02 Chelsea feelings ion d 2- 10:30:00 Son present 13:13: [id number] 00 Neuro knowledge/s Neuro/Emot Resolve 2015-09-16 Chelsea kill ion d 2- 12:00:00 Son deficit: pt 13:13: [id number] 00 Activity ADL Activity Resolve 2016-04-27 Chelsea assistance d 2- 11:15:00 Son required 13:13: [id number] 00 Activity knowledge/s Activity Resolve 2016-03-01 Chelsea kill d 2- 12:00:00 Son deficit: pt 13:13: [id number] 00 Safety fall risk Safety Resolve 2015-09-16 Chelsea factor d 2-05 12:00:00 Cline present 13:13: [id number] 00 Safety risk for Safety Resolve 2015-09-16 Chelsea hospitaliza d 2-05 12:00:00 Cline tion 13:13: [id number] 00 Medication oral med Meds Resolve 2016-08-02 Chelsea assistance d 2-05 10:30:00 Cline required 13:13: [id number] 00 Medication injectable Meds Resolve 2016-08-02 Chelsea med d 2-05 10:30:00 Cline assistance 13:13: [id number] required 00 Medication knowledge/s Meds Resolve 2016-06-29 Chelsea kill d 2-05 13:03:00 Son deficit: pt 13:13: [id number] 00 Medication potential Meds Resolve 2016-08-02 Chelsea clinically d 2- 10:30:00 Son significant 13:13: [id number] medication 00 issue Diagnoses knowledge/s Diagnoses Active Chelsea kill - Cline deficit: pt 13:13: [id number] 00 Pain knowledge/s Pain Mgmt Resolve 2015-09-16 Cherrise kill d 2- 12:00:00 Amalia deficit: pt 12:00: [id number] 00 Safety sanitation Safety Resolve 2016-03-01 Cherrise hazards d 2-17 12:00:00 Abbe present 12:00: [id number] 00 Safety risk for Safety Resolve 2016-03-01 Cherrise hospitaliza d 2-18 12:00:00 Amalia tion 12:15: [id number] 00 Neuro knowledge/s Neuro/Emot Resolve 2016-08-16 Cherrise kill ion d 2- 12:45:00 Amalia deficit: pt 13:29: [id number] Safety structural Safety Resolve 2016-03-01 Cherrise barriers d 2- 12:00:00 Amalia present 13:29: [id number] 57 Respiratory knowledge/s Respirator Resolve 2016-04-27 Chelsea kill y d 10-27 11:15:00 Son deficit: cg 09:40: [id number] 00 Pain frequent Pain Mgmt Resolve 2018-08-28 Chelsea pain d 11-03 12:45:00 Son 13:04: [id number] 00 Pain knowledge/s Pain Mgmt Resolve 2016-02-24 Chelsea kill d 11-03 13:35:00 Son deficit: pt 13:04: [id number] 00 Respiratory knowledge/s Respirator Resolve 2016-04-27 Chelsea kill y d 11-03 11:15:00 Son deficit: pt 13:04: [id number] 00 Safety fall risk Safety Resolve 2016-03-01 Chelsea factor d 11-03 12:00:00 Son present 13:04: [id number] 00 Endo/Hugo insulin Endo/Hugo Resolve 2016-10-17 Chelsea admn d 11-24 12:30:00 Son dependence 10:48: [id number] 00 Safety safety Safety Resolve 2016-03-01 Chelsea hazards d 12-22 12:00:00 Cline present 09:15: [id number] 00 Elimination constipatio Eliminatio Resolve 2016-03-01 Chelsea n n d 12-29 12:00:00 Son 13:33: [id number] 00 IV IV present IV Resolve 2016-01-26 Chelsea d 12-29 11:50:00 Son 13:33: [id number] 00 Integument skin Integument Resolve 2016-04-27 Anna integrity d 01-25 11:15:00 Regeczi risk 11:50: [id number] 00 Nutrition knowledge/s Nutrition Resolve 2016-03-01 Cherrise kill d 02-26 12:00:00 Abbe deficit: pt 10:00: [id number] 00 Pain frequent Pain Mgmt Resolve 2018-08-28 Chelsea pain d 03-01 12:45:00 Son 12:00: [id number] 00 Nutrition knowledge/s Nutrition Resolve 2016-04-06 Neida kill d 03-23 14:54:00 Malnoske deficit: pt 13:30: RN 00 Endo/Hugo insulin Endo/Hugo Resolve 2016-10-17 Chelsea admn d 04-06 12:30:00 Cline dependence 14:54: [id number] 00 Nutrition changing Nutrition Resolve 2016-05-10 Chelsea weight/appe d 04-27 11:45:00 Son tite 11:15: [id number] 00 Nutrition knowledge/s Nutrition Resolve 2016-04-27 Chelsea kill d 04-27 11:15:00 Son deficit: pt 11:15: [id number] 00 Cardio hypertensio Cardiovasc Resolve 2016-09-20 Evi n ular d 08-02 10:00:00 Hai 10:30: [id number] 00 Respiratory lung sounds Respirator Resolve 2016-08-25 Evi deficit y d 08-02 10:30:00 Hai 10:30: [id number] 00 Respiratory CPAP Respirator Resolve 2016-10-17 Evi treatments y d 08-02 12:30:00 Hai in home 10:30: [id number] 00 Respiratory dyspnea Respirator Resolve 2016-10-17 Evi present y d 08-02 12:30:00 Hai 10:30: [id number] 00 Respiratory oxygen Respirator Resolve 2016-10-17 Evi treatments y d 08-02 12:30:00 Hai in home 10:30: [id number] 00 Integument knowledge/s Integument Resolve 2016-08-16 Evi kill d 08-02 12:45:00 Hai deficit: pt 10:30: [id number] 00 Medication knowledge/s Meds Resolve 2016-08-25 Evi kill d 08-02 10:30:00 Hai deficit: pt 10:30: [id number] 00 Neuro anxiety Neuro/Emot Resolve 2016-10-17 Evi present ion d 08-16 12:30:00 Hai 12:45: [id number] 00 Integument knowledge/s Integument Resolve 2016-08-25 Evi kill d 08-25 10:30:00 Hai deficit: pt 10:30: [id number] 00 Nutrition nutritional Nutrition Resolve 2016-08-25 Evi restriction d 08-25 10:30:00 Hai s 10:30: [id number] 00 Neuro knowledge/s Neuro/Emot Resolve 2016-2016-08-25 Evi kill ion d 08-25 10:30:00 Hai deficit: pt 10:30: [id number] 00 Medication oral med Meds Resolve 2016-08-25 Evi assistance d 08-25 10:30:00 Hai required 10:30: [id number] 00 Respiratory oxygen Respirator Unknown Evi treatments y 2-06 Hai in home 14:30: [id number] 00 Integument knowledge/s Integument Resolve 2016-09-05 Evi kill d 09-05 14:30:00 Hai deficit: pt 14:30: [id number] 00 Medication oral med Meds Resolve 2016-10-17 Evi assistance d 09-05 12:30:00 Hai required 14:30: [id number] 00 Medication knowledge/s Meds Resolve 2016-12-05 Evi kill d 09-05 17:00:00 Hai deficit: pt 14:30: [id number] 00 Respiratory lung sounds Respirator Resolve 2016-09-20 Evi deficit y d 2- 10:00:00 Hai 10:00: [id number] 00 Integument knowledge/s Integument Resolve 2016-10-17 Evi kill d 2- 12:30:00 Hai deficit: pt 10:00: [id number] 00 Integument other wound Integument Resolve 2016-10-17 Evi present d 2- 12:30:00 Hai 10:00: [id number] 00 Respiratory lung sounds Respirator Resolve 2018-10-09 Evi deficit y d 3-06 12:40:00 Hai 15:00: [id number] 00 Respiratory CPAP Respirator Unknown Evi treatments y 3-06 Hai in home 15:00: [id number] 00 Respiratory smoker Respirator Resolve 2016-10-17 Evi y d 3-06 12:30:00 Hai 15:00: [id number] 00 Respiratory nebulizer Respirator Unknown Evi treatment y 3-06 Hai in home 15:00: [id number] 00 Respiratory dyspnea Respirator Resolve 2016-11-07 Evi present y d 10-25 12:20:00 Hai 14:15: [id number] 00 Respiratory oxygen Respirator Unknown Evi treatments y 10-25 Hai in home 14:15: [id number] 00 Respiratory smoker Respirator Resolve 2016-11-07 Evi y d 10-25 12:20:00 Hai 14:15: [id number] 00 Integument other wound Integument Resolve 2016-10-25 Evi present d 10-25 14:15:00 Hai 14:15: [id number] 00 Nutrition nutritional Nutrition Resolve 2016-11-07 Evi restriction d 10-25 12:20:00 Hai s 14:15: [id number] 00 Neuro anxiety Neuro/Emot Resolve 2016-11-07 Evi present ion d 10-25 12:20:00 Hai 14:15: [id number] 00 Medication oral med Meds Resolve 2016-12-05 Evi assistance d 10-25 17:00:00 Hai required 14:15: [id number] 00 Medication potential Meds Resolve 2016-12-05 Evi clinically d 11-07 17:00:00 Hai significant 12:20: [id number] medication 00 issue Respiratory dyspnea Respirator Resolve 2016-11-21 Evi present y d 11-14 13:30:00 Hai 14:00: [id number] 00 Respiratory oxygen Respirator Unknown Evi treatments y 11-21 Hai in home 13:30: [id number] 00 Respiratory lung sounds Respirator Resolve 2018-10-09 Evi deficit y d 11-21 12:40:00 Hai 13:30: [id number] 00 Respiratory smoker Respirator Resolve 2016-11-21 Evi y d 11-21 13:30:00 Hai 13:30: [id number] 00 Respiratory nebulizer Respirator Unknown Evi treatment y 11-21 Hai in home 13:30: [id number] 00 Neuro anxiety Neuro/Emot Resolve 2016-12-25 Evi present ion d 11-21 13:30:00 Hai 13:30: [id number] 00 Respiratory oxygen Respirator Resolve 2018-09-18 Evi treatments y d 12-05 13:30:00 Hai in home 17:00: [id number] 00 Respiratory smoker Respirator Resolve 2016-12-05 Evi y d 12-05 17:00:00 Hai 17:00: [id number] 00 Respiratory nebulizer Respirator Resolve 2018-09-18 Evi treatment y d 12-05 13:30:00 Hai in home 17:00: [id number] 00 Endo/Hugo knowledge/s Endo/Hugo Resolve 2016-12-19 Evi kill d 12-05 13:00:00 Hai deficit: pt 17:00: [id number] 00 Medication knowledge/s Meds Resolve 2016-12-25 Evi kill d 12-19 13:30:00 Hai deficit: pt 13:00: [id number] 00 Respiratory dyspnea Respirator Resolve 2017-02-27 Evi present y d 12-25 12:30:00 Hai 13:30: [id number] 00 Integument other wound Integument Resolve 2017-01-02 Evi present d 12-25 11:50:00 Hai 13:30: [id number] 00 Medication knowledge/s Meds Resolve 2016-12-25 Evi kill d 12-25 13:30:00 Hai deficit: pt 13:30: [id number] 00 Respiratory smoker Respirator Resolve 2017-01-16 Evi y d 01-16 15:00:00 Hai 15:00: [id number] 00 Respiratory lung sounds Respirator Resolve 2017-02-13 Evi deficit y d 02-13 12:45:00 Hai 12:45: [id number] 00 Respiratory smoker Respirator Resolve 2017-02-13 Evi y d 02-13 12:45:00 Hai 12:45: [id number] 00 Respiratory smoker Respirator Resolve 2017-02-27 Evi y d 02-24 12:30:00 Hai 13:00: [id number] 00 Integument other wound Integument Resolve 2017-02-24 Evi present d 02-24 13:00:00 Hai 13:00: [id number] 00 Nutrition nutritional Nutrition Resolve 2017-04-03 Tammee restriction d - 12:25:00 Eric garcia 13:00: an 00 Integument other wound Integument Resolve 2017-05-01 Evi present d 04-25 12:15:00 Hai 13:00: [id number] 00 Neuro depressive Neuro/Emot Resolve 2017-05-01 Evi feelings ion d 04-25 12:15:00 Hai present 13:00: [id number] 00 Neuro anxiety Neuro/Emot Resolve 2017-05-01 Evi present ion d 04-25 12:15:00 Hai 13:00: [id number] 00 Respiratory lung sounds Respirator Resolve 2016-072017-05-01 Evi deficit y d 0- 12:15:00 Hai 12:15: [id number] 00 Respiratory smoker Respirator Resolve 2016-072017-06-12 Evi y d 1- 11:14:00 Hai 11:14: [id number] 00 Respiratory smoker Respirator Resolve 2016-072017-06-21 Evi y d 08-21 11:15:00 Hai 11:15: [id number] 00 Integument other wound Integument Resolve 2016-072017-06-21 Evi present d 08-21 11:15:00 Hai 11:15: [id number] 00 Respiratory lung sounds Respirator Resolve 2016-072017-06-26 Evi deficit y d 08-26 12:15:00 Hai 12:15: [id number] 00 Respiratory lung sounds Respirator Unknown 2016-07 Evi deficit y 2-11 Hai 12:20: [id number] 00 Respiratory smoker Respirator Resolve 2016-072017-08-03 Evi y d 2-28 11:30:00 Hai 12:10: [id number] 00 Respiratory lung sounds Respirator Resolve 2017-08-03 Evi deficit y d 1- 11:30:00 Hai 11:30: [id number] 00 Respiratory lung sounds Respirator Resolve 2017-08-07 Evi deficit y d 1- 10:20:00 Hai 10:20: [id number] 00 Respiratory smoker Respirator Resolve 2017-08-07 Evi y d 1-08 10:20:00 Hai 10:20: [id number] 00 Respiratory lung sounds Respirator Resolve 2017-2017-08-14 Evi deficit y d 1-15 11:30:00 Hai 11:30: [id number] 00 Respiratory smoker Respirator Resolve 2017-2017-08-14 Evi y d 1-15 11:30:00 Hai 11:30: [id number] 00 Integument other wound Integument Resolve 2017-2017-08-21 Evi present d 1- 10:50:00 Hai 10:50: [id number] 00 Respiratory smoker Respirator Resolve 2017-2017-09-04 Evi y d 1- 12:40:00 Hai 12:30: [id number] 00 Respiratory lung sounds Respirator Resolve 2017-09-11 Evi deficit y d 2-12 13:00:00 Hai 13:00: [id number] 00 Respiratory lung sounds Respirator Resolve 2017-09-20 Evi deficit y d 2-21 11:15:00 Hai 11:15: [id number] 00 Respiratory lung sounds Respirator Resolve 2017-2017-09-27 Evi deficit y d 2-28 11:45:00 Hai 11:45: [id number] 00 Respiratory lung sounds Respirator Resolve 2017-10-18 Evi deficit y d 3-21 11:00:00 Hai 11:00: [id number] 00 Respiratory smoker Respirator Resolve 2017-10-18 Evi y d 3-21 11:00:00 Hai 11:00: [id number] 00 Integument other wound Integument Resolve 2017-10-25 Evi present d 3-21 11:00:00 Hai 11:00: [id number] 00 Respiratory lung sounds Respirator Resolve 2018-10-09 Evi deficit y d 4-10 12:40:00 Hai 14:45: [id number] 00 Respiratory smoker Respirator Resolve 2017-2017-11-15 Evi y d 4-18 11:00:00 Hai 11:00: [id number] 00 Respiratory lung sounds Respirator Resolve 2017-2018-10-09 Evi deficit y d 4-25 12:40:00 Hai 13:40: [id number] 00 Respiratory smoker Respirator Resolve 2017-11-22 Evi y d 11-22 13:40:00 Hai 13:40: [id number] 00 Respiratory smoker Respirator Resolve 2017-12-06 Evi y d 12-06 13:15:00 Hai 13:15: [id number] 00 Respiratory lung sounds Respirator Resolve 2017-12-13 Evi deficit y d 12-13 13:00:00 Hai 13:00: [id number] 00 Respiratory lung sounds Respirator Resolve 2017-12-26 Evi deficit y d 12-20 12:05:00 Hai 13:15: [id number] 00 Integument other wound Integument Resolve 2017-12-26 Evi present d 12-20 12:05:00 Hai 13:15: [id number] 00 Respiratory lung sounds Respirator Resolve 2018-01-03 Evi deficit y d 06 12:38:00 Hai 12:38: [id number] 00 Respiratory lung sounds Respirator Resolve 2018-10-09 Evi deficit y d 6-13 12:40:00 Hai 15:00: [id number] 00 Respiratory smoker Respirator Resolve 2018-01-10 Evi y d 6-13 15:00:00 Hai 15:00: [id number] 00 Respiratory lung sounds Respirator Resolve 2018-01-24 Evi deficit y d 6- 13:10:00 Hai 13:10: [id number] 00 Nutrition nutritional Nutrition Resolve 2019-08-13 Evi restriction d 6 10:50:00 Hai s 13:10: [id number] 00 Safety sanitation Safety Resolve 2018-06-05 Evi hazards d 6- 10:35:00 Hai present 13:10: [id number] 00 Safety fall risk Safety Resolve 2018-02-19 Evi factor d 6 14:02:00 Hai present 13:10: [id number] 00 Safety risk for Safety Resolve 2018-10-30 Evi hospitaliza d 01-24 13:06:00 Hai tion 13:10: [id number] 00 Safety structural Safety Resolve 2018-02-19 Evi barriers d 01-24 14:02:00 Hai present 13:10: [id number] 00 Safety safety Safety Resolve 2018-02-19 Evi hazards d 01-24 14:02:00 Hai present 13:10: [id number] 00 Medication oral med Meds Active Evi assistance 01-24 Hai required 13:10: [id number] 00 Medication injectable Meds Active Evi med 01-24 Hai assistance 13:10: [id number] 00 Respiratory lung sounds Respirator Resolve 2018-10-09 Evi deficit y d 01-29 12:40:00 Hai 13:45: [id number] 00 Respiratory smoker Respirator Resolve 2018-02-07 Evi y d 01-29 13:00:00 Hai 13:45: [id number] 00 Respiratory smoker Respirator Resolve 2018-03-01 Evi y d 02-19 11:42:00 Hai 14:02: [id number] 00 Integument other wound Integument Resolve 2018-03-21 Evi present d 02-19 15:30:00 Hai 14:02: [id number] 00 Respiratory smoker Respirator Resolve 2018-03-28 Evi y d 03-28 11:36:00 Hai 11:36: [id number] 00 Respiratory smoker Respirator Resolve 2018-04-03 Evi y d 04-03 14:00:00 Hai 14:00: [id number] 00 Respiratory smoker Respirator Resolve 2018-04-10 Evi y d 04-10 14:40:00 Hai 14:40: [id number] 00 Integument other wound Integument Resolve 2018-04-24 Evi present d 04-18 10:16:00 Hai 11:00: [id number] 00 Respiratory smoker Respirator Resolve 2017-072018-05-16 Evi y d 0 14:20:00 Hai 10:50: [id number] 00 Respiratory smoker Respirator Resolve 2017-072018-05-29 Evi y d 11:30:00 Hai 11:30: [id number] 00 Respiratory smoker Respirator Resolve 2017-072018-06-05 Evi y d 08-05 10:35:00 Hai 10:35: [id number] 00 Safety safety Safety Resolve 2017-072018-06-05 Evi hazards d 08-05 10:35:00 Hai present 10:35: [id number] 00 Integument other wound Integument Resolve 2017-072018-06-26 Evi present d 08-19 15:15:00 Hai 11:12: [id number] 00 Respiratory smoker Respirator Resolve 2017-072018-06-26 Evi y d 08-26 15:15:00 Hai 15:15: [id number] 00 Respiratory smoker Respirator Resolve 2017-072018-07-03 Evi y d 09-03 11:13:00 Hai 11:13: [id number] 00 Respiratory smoker Respirator Resolve 2017-072018-07-17 Evi y d 09-10 11:38:00 Hai 11:20: [id number] 00 Respiratory smoker Respirator Resolve 2017-072018-07-23 Evi y d 09-23 10:00:00 Hai 10:00: [id number] 00 Integument other wound Integument Resolve 2018-08-14 Evi present d 08-14 15:44:00 Hai 15:44: [id number] 00 Pain frequent Pain Mgmt Resolve 2018-08-28 Evi pain d 08-25 12:45:00 Hai 09:33: [id number] 56 Pain severe pain Pain Mgmt Resolve 2018-08-28 Evi d 08-25 12:45:00 Hai 09:33: [id number] 56 Integument other wound Integument Resolve 2018-08-28 Evi present d 08-25 12:45:00 Hai 09:33: [id number] 56 Respiratory smoker Respirator Resolve 2018-08-28 Evi y d 08-28 12:45:00 Hai 12:45: [id number] 00 Respiratory smoker Respirator Resolve 2018-09-04 Evi y d 09-04 11:30:00 Hai 11:30: [id number] 00 Respiratory smoker Respirator Resolve 2018-09-18 Evi y d 09-10 13:30:00 Hai 16:40: [id number] 00 Pain severe pain Pain Mgmt Resolve 2018-09-25 Evi d 2-19 10:30:00 Hai 13:30: [id number] 00 Neuro anxiety Neuro/Emot Unknown Evi present ion 09-18 Hai 13:30: [id number] 00 Respiratory oxygen Respirator Resolve 2018-10-16 Evi treatments y d 3-05 11:45:00 Hai in home 10:45: [id number] 00 Respiratory smoker Respirator Resolve 2018-10-09 Evi y d 3-05 12:40:00 Hai 10:45: [id number] 00 Respiratory nebulizer Respirator Resolve 2018-10-16 Evi treatment y d - 11:45:00 Hai in home 10:45: [id number] 00 Respiratory lung sounds Respirator Resolve 2018-10-16 Evi deficit y d 3 11:45:00 Hai 11:45: [id number] 00 Respiratory smoker Respirator Resolve 2018-10-16 Evi y d 3 11:45:00 Hai 11:45: [id number] 00 Integument other wound Integument Resolve 2018-10-23 Evi present d 10-16 11:20:00 Hai 11:45: [id number] 00 Respiratory nebulizer Respirator Resolve 2018-10-23 Evi treatment y d 10-23 11:20:00 Hai in home 11:20: [id number] 00 Safety safety Safety Resolve 2018-10-23 Evi hazards d 10-23 11:20:00 Hai present 11:20: [id number] 00 Respiratory lung sounds Respirator Unknown Evi deficit y 10-30 Hai 13:06: [id number] 00 Respiratory oxygen Respirator Resolve 2018-11-20 Evi treatments y d 11-06 10:35:00 Hai in home 11:31: [id number] 00 Respiratory smoker Respirator Resolve 2018-2018-11-06 Evi y d 11-06 11:31:00 Hai 11:31: [id number] 00 Respiratory nebulizer Respirator Resolve 2018-11-20 Evi treatment y d 11-06 10:35:00 Hai in home 11:31: [id number] 00 Safety risk for Safety Resolve 2018-11-12 Evi hospitaliza d 11-06 10:00:00 Hai tion 11:31: [id number] 00 Respiratory smoker Respirator Resolve 2018-11-20 Evi y d 11-12 10:35:00 Hai 10:00: [id number] 00 Respiratory lung sounds Respirator Resolve 2018-11-20 Evi deficit y d 11-20 10:35:00 Hai 10:35: [id number] 00 Safety risk for Safety Resolve 2018-11-27 Evi hospitaliza d 11-20 11:00:00 Hai tion 10:35: [id number] 00 Pain severe pain Pain Mgmt Resolve 2018-12-04 Evi d 11-27 11:35:00 Hai 11:00: [id number] 00 Respiratory oxygen Respirator Resolve 2018-12-12 Evi treatments y d 11-27 09:08:00 Hai in home 11:00: [id number] 00 Respiratory lung sounds Respirator Resolve 2018-12-04 Evi deficit y d 11-27 11:35:00 Hai 11:00: [id number] 00 Respiratory nebulizer Respirator Resolve 2018-12-12 Evi treatment y d 11-27 09:08:00 Hai in home 11:00: [id number] 00 Respiratory smoker Respirator Resolve 2018-12-04 Evi y d 12-04 11:35:00 Hai 11:35: [id number] 00 Safety risk for Safety Resolve 2018-12-12 Evi hospitaliza d 12-04 09:08:00 Hai tion 11:35: [id number] 00 Cardio hypertensio Cardiovasc Resolve 2018-12-18 Evi n ular d 12-12 14:00:00 Hai 09:08: [id number] 00 Respiratory lung sounds Respirator Resolve 2018-12-12 Evi deficit y d 12-12 09:08:00 Hai 09:08: [id number] 00 Respiratory smoker Respirator Resolve 2018-12-12 Evi y d 5-15 09:08:00 Hai 09:08: [id number] 00 Integument other wound Integument Resolve 2018-12-18 Evi present d 5-15 14:00:00 Hai 09:08: [id number] 00 Safety risk for Safety Resolve 2019-01-01 Evi hospitaliza d 12-18 13:20:00 Hai tion 14:00: [id number] 00 Cardio hypertensio Cardiovasc Resolve 2018-2019-01-01 Evi n ular d 12-25 13:20:00 Hai 10:30: [id number] 00 Respiratory oxygen Respirator Resolve 2018-2019-01-08 Evi treatments y d 12-25 11:00:00 Hai in home 10:30: [id number] 00 Respiratory lung sounds Respirator Resolve 2018-2019-01-01 Evi deficit y d 12-25 13:20:00 Hai 10:30: [id number] 00 Respiratory nebulizer Respirator Resolve 2019-01-08 Evi treatment y d 12-25 11:00:00 Hai in home 10:30: [id number] 00 Cardio hypertensio Cardiovasc Resolve 2019-01-15 Evi n ular d - 12:05:00 Hai 11:00: [id number] 00 Respiratory smoker Respirator Resolve 2019-01-08 Evi y d 6- 11:00:00 Hai 11:00: [id number] 00 Respiratory lung sounds Respirator Resolve 2018-2019-01-08 Evi deficit y d 6- 11:00:00 Hai 11:00: [id number] 00 Safety risk for Safety Resolve 2019-01-15 Evi hospitaliza d - 12:05:00 Hai tion 11:00: [id number] 00 Respiratory lung sounds Respirator Unknown Evi deficit y 6 Hai 12:05: [id number] 00 Respiratory nebulizer Respirator Resolve 2018-2019-01-22 Evi treatment y d 6- 11:45:00 Hai in home 12:05: [id number] 00 Respiratory oxygen Respirator Resolve 2018-2019-01-22 Evi treatments y d 6 11:45:00 Hai in home 11:45: [id number] 00 Respiratory smoker Respirator Resolve 2019-01-22 Evi y d 6 11:45:00 Hai 11:45: [id number] 00 Respiratory lung sounds Respirator Resolve 2018-2019-02-05 Evi deficit y d 01-29 11:30:00 Hai 11:40: [id number] 00 Respiratory smoker Respirator Resolve 2019-02-05 Evi y d 01-29 11:30:00 Hai 11:40: [id number] 00 Respiratory nebulizer Respirator Resolve 2019-02-05 Evi treatment y d 01-29 11:30:00 Hai in home 11:40: [id number] 00 Pain severe pain Pain Mgmt Resolve 2019-02-12 Evi d 02-08 13:30:00 Hai 16:30: [id number] 00 Respiratory oxygen Respirator Resolve 2019-02-19 Evi treatments y d 02-12 14:00:00 Hai in home 13:30: [id number] 00 Respiratory nebulizer Respirator Resolve 2019-02-19 Evi treatment y d 02-12 14:00:00 Hai in home 13:30: [id number] 00 Integument other wound Integument Resolve 2019-02-12 Evi present d 02-12 13:30:00 Hai 13:30: [id number] 00 Safety fall risk Safety Resolve 2019-02-12 Evi factor d 02-12 13:30:00 Hai present 13:30: [id number] Safety risk for Safety Resolve 2019-07-02 Evi hospitaliza d 02-12 11:45:00 Hai tion 13:30: [id number] 00 Respiratory smoker Respirator Resolve 2019-02-19 Evi y d 02-19 14:00:00 Hai 14:00: [id number] 00 Integument knowledge/s Integument Resolve 2019-02-27 Evi kill d 02-19 11:00:00 Hai deficit: pt 14:00: [id number] 00 Respiratory nebulizer Respirator Unknown Evi treatment y 7-31 Hai in home 11:00: [id number] 00 Respiratory smoker Respirator Resolve 2019-03-05 Evi y d 8 13:00:00 Hai 13:00: [id number] 00 Respiratory lung sounds Respirator Resolve 2019-04-09 Evi deficit y d 8 14:30:00 Hai 13:00: [id number] Endo/Hugo glucose Endo/Hugo Resolve 2019-03-19 Evi tolerance d 03-05 13:30:00 Hai problem 13:00: [id number] Endo/Hugo knowledge/s Endo/Hugo Resolve 2019-03-19 Evi kill d 03-05 13:30:00 Hai deficit 13:00: [id number] hypo/hyperg 00 lycemia: pt Integument other wound Integument Resolve 2019-03-05 Evi present d 03-05 13:00:00 Hai 13:00: [id number] 00 Respiratory oxygen Respirator Resolve 2019-03-26 Evi treatments y d 8-13 16:55:00 Hai in home 13:00: [id number] 00 Respiratory nebulizer Respirator Resolve 2019-03-26 Evi treatment y d 8-13 16:55:00 Hai in home 13:00: [id number] 00 Respiratory oxygen Respirator Resolve 2019-04-09 Evi treatments y d 903 14:30:00 Hai in home 12:15: [id number] 00 Respiratory nebulizer Respirator Resolve 2019-04-09 Evi treatment y d 9 14:30:00 Hai in home 12:15: [id number] 00 Endo/Hugo knowledge/s Endo/Hugo Resolve 2019-06-25 Evi kill d 04-02 12:00:00 Hai deficit: pt 12:15: [id number] 00 Endo/Hugo knowledge/s Endo/Hugo Resolve 2019-06-25 Evi kill d 04-02 12:00:00 Hai deficit 12:15: [id number] hypo/hyperg 00 lycemia: pt Respiratory smoker Respirator Resolve 2019-04-09 Evi y d 04-09 14:30:00 Hai 14:30: [id number] 00 Endo/Hugo glucose Endo/Hugo Resolve 2019-04-09 Evi tolerance d 9-10 14:30:00 Hai problem 14:30: [id number] 00 Respiratory oxygen Respirator Resolve 2019-04-23 Evi treatments y d 9-16 14:15:00 Hai in home 14:00: [id number] 00 Respiratory smoker Respirator Resolve 2019-04-23 Evi y d 9-16 14:15:00 Hai 14:00: [id number] 00 Respiratory nebulizer Respirator Resolve 2019-04-23 Evi treatment y d 9-16 14:15:00 Hai in home 14:00: [id number] 00 Endo/Hugo anti-coagul Endo/Hugo Resolve 2019-04-23 Evi ation d 9- 14:15:00 Hai therapy 14:00: [id number] 00 Endo/Hugo glucose Endo/Hugo Resolve 2019-04-23 Evi tolerance d 24 14:15:00 Hai problem 14:15: [id number] 00 Respiratory lung sounds Respirator Resolve 2018-072019-05-07 Evi deficit y d 0-01 15:20:00 Hai 11:06: [id number] 00 Respiratory smoker Respirator Resolve 2018-072019-05-07 Evi y d 0-01 15:20:00 Hai 11:06: [id number] 00 Respiratory oxygen Respirator Resolve 2018-072019-05-15 Evi treatments y d 0-08 10:00:00 Hai in home 15:20: [id number] 00 Respiratory nebulizer Respirator Resolve 2018-072019-05-15 Evi treatment y d 0-08 10:00:00 Hai in home 15:20: [id number] 00 Respiratory lung sounds Respirator Resolve 2018-072019-05-15 Evi deficit y d 0-16 10:00:00 Hai 10:00: [id number] 00 Respiratory lung sounds Respirator Resolve 2018-072019-05-28 Evi deficit y d 0-23 13:15:00 Hai 09:30: [id number] 00 Respiratory oxygen Respirator Resolve 2018-072019-08-13 Evi treatments y d 0-29 10:50:00 Hai in home 13:15: [id number] 00 Respiratory nebulizer Respirator Resolve 2018-072019-08-13 Evi treatment y d 0-29 10:50:00 Hai in home 13:15: [id number] 00 Respiratory smoker Respirator Resolve 2018-072019-05-28 Evi y d 0-29 13:15:00 Hai 13:15: [id number] 00 Respiratory lung sounds Respirator Resolve 2018-072019-06-04 Evi deficit y d 1-05 12:00:00 Hai 12:00: [id number] 00 Respiratory lung sounds Respirator Resolve 2018-072019-06-25 Evi deficit y d 1-11 12:00:00 Hai 11:00: [id number] 00 Respiratory smoker Respirator Resolve 2018-072019-06-18 Evi y d 1-11 12:45:00 Hai 11:00: [id number] 00 Integument other wound Integument Resolve 2018-072019-06-18 Evi present d 1-11 12:45:00 Hai 11:00: [id number] 00 Safety fall risk Safety Resolve 2018-072019-06-25 Evi factor d 1-11 12:00:00 Hai present 11:00: [id number] 00 Respiratory smoker Respirator Resolve 2018-072019-06-25 Evi y d 1- 12:00:00 Hai 12:00: [id number] 00 Neuro anxiety Neuro/Emot Active 2018-07 Evi present ion - Hai 12:00: [id number] 00 Neuro memory Neuro/Emot Active 2018-07 Evi deficit ion - Hai needing 12:00: [id number] 00 Respiratory smoker Respirator Resolve 2018-072019-07-30 Evi y d 2-03 11:00:00 Hai 11:45: [id number] 00 Respiratory lung sounds Respirator Resolve 2018-072019-07-30 Evi deficit y d 2-11 11:00:00 Hai 13:05: [id number] 00 Safety risk for Safety Resolve 2018-072019-07-10 Evi hospitaliza d 2-11 13:05:00 Hai tion 13:05: [id number] 00 Safety risk for Safety Resolve 2018-072019-07-23 Evi [facility] d 09-16 11:00:00 Hai tion 15:00: [id number] 00 Safety risk for Safety Resolve 2018-072019-07-30 Evi [facility] d 11:00:00 Hai tion 11:00: [id number] 00 Safety risk for Safety Resolve 2019-08-13 Evi [facility] d 08-06 10:50:00 Hai tion 12:30: [id number] Medication potential Meds Active 2019-0 Evi clinically 08-06 Hai significant 12:30: [id number] medication 00 issue Cardio hypertensio Cardiovasc Active 2019- Evi n ular 08-13 Hai 10:50: [id number] 00 Respiratory knowledge/s Respirator Resolve 2019-0 2019-08-13 Evi kill y d 08-13 10:50:00 Hai deficit: pt 10:50: [id number] 00 Respiratory lung sounds Respirator Resolve 2019-0 2019-08-13 Evi deficit y d 08-13 10:50:00 Hai 10:50: [id number] 00 Respiratory smoker Respirator Resolve 2019-0 2019-08-13 Evi y d 08-13 10:50:00 Hai 10:50: [id number] 00 Integument other wound Integument Active 2019- Evi present 08-13 Hai 10:50: [id number] 00 Neuro depressive Neuro/Emot Active Evi feelings ion - Hai present 10:50: [id number] 00 Medication knowledge/s Meds Active 2019-0 Evi kill -14 Hai deficit: pt 10:50: [id number] 00 Respiratory oxygen Respirator Active 2019-0 Evi treatments y 1-21 Hai in home 13:20: [id number] 00 Respiratory knowledge/s Respirator Active 2019-0 Evi kill y 1-21 Hai deficit: pt 13:20: [id number] 00 Respiratory lung sounds Respirator Active 2019-0 Evi deficit y 1-21 Hai 13:20: [id number] 00 Respiratory smoker Respirator Active 2019-0 Evi y 1-21 Hai 13:20: [id number] 00 Respiratory nebulizer Respirator Active 2019-0 Evi treatment y 1-21 Hai in home 13:20: [id number] Endo/Hugo glucose Endo/Hugo Active Evi tolerance 1-21 Hai problem 13:20: [id number] 00 Endo/Hugo knowledge/s Endo/Hugo Active Evi kill 1-21 Hai deficit: pt 13:20: [id number] 00 Endo/Hugo knowledge/s Endo/Hugo Active Evi kill 1-21 Hai deficit 13:20: [id number] hypo/hyperg 00 lycemia: pt Allergies, Adverse Reactions, Alerts Allergy Allergy Type Status Severity Reaction(s) Onset Inactive Treating Comments Name Date Date Clinician ibuprofen Base Active Unknown Nausea and Cari Ingredient vomiting 09-03 Mercado Lidopatch Medication Active Unknown Rash, Hives Cair Name ID [id number] Mercado Medications Ordered Filled Start Stop Current Ordering Indication Dosage Frequency Signature Comments Components Medication Medication Date Date Medication? Clinician (SIG) Name Name omeprazole omeprazole No Darlow 40 mg Unknown 40 mg 40 mg 2 Leroy DUMONT capsule,del capsule,del ayed ayed release release hydroCHLORO hydroCHLORO No Darlow 12.5 mg Unknown thiazide thiazide 09-04 Leroy DUMONT 12.5 mg 12.5 mg tablet tablet cetirizine cetirizine No Darlow 10 mg Unknown 10 mg 10 mg 09-04 Leroy DUMONT tablet tablet albuterol albuterol No Darlow 1 amp Unknown sulfate 2.5 sulfate 2.5 09-04 Leroy DUMONT mg/3 mL mg/3 mL (0.083 %) (0.083 %) solution solution for for nebulizatio nebulizatio n n Singulair Singulair No Darlow 10 mg Unknown 10 mg 10 mg 2 Leroy DUMONT tablet tablet metoclopram metoclopram No Darlow 5 mg Unknown sincere 5 mg sincere 5 mg 09-04 Leroy DUMONT tablet tablet Lipitor 80 Lipitor 80 No Darlow 80 mg Unknown mg tablet mg tablet 09-04 Leroy DUMONT lisinopril lisinopril No Darlow 20 mg Unknown [...] 09-04 ,Leroy ointment ointment betamethaso betamethaso 2017- Darlow 1 Unknown ne valerate ne valerate 09-04 ,Leroy 0.1 % 0.1 % topical topical cream cream metFORMIN metFORMIN No Darlow 1000 mg Unknown 1,000 mg 1,000 mg 09-04 ,Leroy tablet tablet Lyrica 75 Lyrica 75 Darlow 75 mg Unknown mg capsule mg capsule 09-04 ,Leroy HumaLOG HumaLOG No Darlow 5- 10 Unknown KwikPen KwikPen 09-04 ,Leroy units (U-100) (U-100) Insulin 100 Insulin 100 unit/mL unit/mL subcutaneou subcutaneou s s Lantus Lantus 2016- No Darlow 6-20 Unknown U-100 U-100 09-04 Leroy DUMONT units Insulin 100 Insulin 100 unit/mL unit/mL subcutaneou subcutaneou s solution s solution benzonatate benzonatate 2017- No Darlow 200 mg Unknown 200 mg 200 mg 09-04 ,Leroy capsule capsule Symbicort Symbicort No Darlow 2 puffs Unknown 160 mcg-4.5 160 mcg-4.5 2 Leroy DUMONT mcg/actuati mcg/actuati on HFA on HFA aerosol aerosol inhaler inhaler FLUoxetine FLUoxetine 2015- No Darlow 40 mg Unknown 40 mg 40 mg 09-04 ,Leroy capsule capsule oxygen oxygen 2015- No Darlow 2 liter Unknown permeable permeable 09-04 ,Leroy 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 liquid liquid FLUoxetine FLUoxetine No Darlow [...] tab Unknown mg tablet mg tablet 04-15 Leroy DUMONT amoxicillin amoxicillin 2015-07- No Darlow 1 Unknown [id number] 08-09 [...] one 1 % one 1 % 03-14 ,Leroy topical topical ointment ointment Duragesic Duragesic 2018- No [place] Unknown Unknown 25 mcg/hr 25 mcg/hr 04-26 Hugo DUMONT transdermal transdermal patch patch lisinopril lisinopril No Darlow Unknown Unknown 20 mg 20 mg - MD,Leroy tablet tablet Colace 100 Colace 100 2018- No Darlow Unknown Unknown mg capsule mg capsule 10-07- ,Leroy Colace 100 Colace 100 2018- No Darlow Unknown Unknown mg capsule mg capsule 10-10- ,Leroy Colace 100 Colace 100 No Darlow Unknown Unknown mg capsule mg capsule 11-20 ,Leroy glimepiride glimepiride No Darlow Unknown Unknown 1 mg tablet 1 mg tablet 4-23 ,Leroy triamcinolo triamcinolo 2018- No Darlow Unknown Unknown ne ne 01-08- ,Leroy acetonide acetonide 0.025 % 0.025 % topical topical cream cream Lyrica 75 Lyrica 75 2018- No [place] Unknown Unknown mg capsule mg capsule 01-22 Hugo DUMONT Lyrica 100 Lyrica 100 2018- No [place] Unknown Unknown mg capsule mg capsule 02-06 09-16 Hugo DUMONT Fluocinonid Fluocinonid No Yentzer Unknown Unknown e-E 0.05 % e-E 0.05 % 01-29 ,Shravan A topical topical cream cream ketoconazol ketoconazol No Yentzer Unknown Unknown e 2 % e 2 % 01-29 Shravan DUMONT A shampoo shampoo Lantus Lantus 2018- No Darlow Unknown Unknown U-100 U-100 02-15 Leroy DUMONT Insulin 100 Insulin 100 unit/mL unit/mL subcutaneou subcutaneou s solution s solution metFORMIN metFORMIN 2018- No Darlow Unknown Unknown 1,000 mg 1,000 mg 02-15 07- ,Leroy tablet tablet Lantus Lantus 2019- No Darlow Unknown Unknown U-100 U-100 02-26- ,Leroy Insulin 100 Insulin 100 unit/mL unit/mL subcutaneou subcutaneou s solution s solution metFORMIN metFORMIN No Darlow Unknown Unknown 1,000 mg 1,000 mg 02-26 ,Leroy tablet tablet Aspir-Low Aspir-Low No Darlow Unknown Unknown 81 mg 81 mg 8-06 ,Leroy tablet,anna tablet,anna yed release yed release Lyrica 150 Lyrica 150 No [place] Unknown Unknown mg capsule mg capsule 9-16 Hugo DUMONT Spiriva Spiriva 2018-07 Yes Samantha Unknown Unknown Respimat Respimat 1-11 ,Citlali 2.5 2.5 mcg/actuati mcg/actuati on solution on solution for for inhalation inhalation fentaNYL 12 fentaNYL 12 2018-07 Yes [place] Unknown Unknown mcg/hr mcg/hr 2-13 MD,Hugo transdermal transdermal patch patch OLANZapine OLANZapine 2019- [...] tablet mg tablet 08-20 MD,Honorio magnesium magnesium Yes Bael Unknown Unknown oxide oxide 08-20 MD,Honorio Vital Signs Vital Name Observation Time Observation Value Comments SYSTOLIC mm[Hg] 2019-08-20 18:09:59 190 mm[Hg] mm[Hg] Method: Sit SYSTOLIC mm[Hg] 2019-08-14 18:09:53 170 mm[Hg] mm[Hg] Method: Stand DIASTOLIC mm[Hg] 2019-08-20 18:09:59 80 mm[Hg] mm[Hg] Method: Sit DIASTOLIC mm[Hg] 2019-08-14 18:09:53 88 mm[Hg] mm[Hg] Method: Stand PULSE 2019-08-20 18:09:59 75 /min /min RESP RATE 2019-08-20 18:09:59 16 /min /min TEMP 2019-08-20 18:09:59 98.2 [degF] Procedures This patient has no known procedures. Results This patient has no known results.
--- OUTSIDE RECORDS SUMMARY | 2019-09-17 05:41 | XMS REPORT ---
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 [id number] with with hyperglycem hyperglycem ia ia Chronic Chronic Diagnosis Active Evi obstructive obstructive 2- Hai pulmonary pulmonary [id number] disease, disease, unspecified unspecified Essential Essential Diagnosis Active Evi (primary) (primary) 2- Hai hypertensio hypertensio [id number] n n Other Other Diagnosis Active Evi chronic chronic 2- Hai pain pain [id number] 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, disorder, 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, recurrent, unspecified unspecified Gastro-esop Gastro-esop Diagnosis Active Evi hageal hageal 2- Hai reflux reflux [id number] disease disease without without esophagitis esophagitis 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 [id number] Low back Low back Diagnosis Active Evi pain pain Hai [id number] Hyperlipide Hyperlipide Diagnosis Active Evi hank, hank, Hai unspecified unspecified [id number] Hypothyroid Hypothyroid Diagnosis Active Evi ism, ism, Hai unspecified unspecified [id number] Respiratory treatments Respirator Resolve 2016-10-17 Chelsea ordered y d 2- 12:30:00 Son [id number] Pain frequent Pain Mgmt Resolve 2018-08-28 Chelsea pain d 2- 12:45:00 Son 13:13: [id number] 00 Pain knowledge/s Pain Mgmt Resolve 2015-09-09 Chelsea kill d 09-04 10:40:00 Son deficit: pt 13:13: [id number] 00 Pain severe pain Pain Mgmt Resolve 29 Chelsea d 2-05 12:45:00 Son 13:13: [id number] 00 Respiratory dyspnea Respirator Resolve 2016-10-17 Chelsea present y d 2- 12:30:00 Son 13:13: [id number] 00 Respiratory oxygen Respirator Resolve 2016-10-17 Chelsea treatments y d 2- 12:30:00 Son in home 13:13: [id number] 00 Respiratory knowledge/s Respirator Resolve 2015-09-16 Chelsea kill y d 2- 12:00:00 Son deficit: pt 13:13: [id number] 00 Respiratory lung sounds Respirator Resolve 2016-06-29 Chelsea deficit y d 2 13:03:00 Son 13:13: [id number] 00 Endo/Hugo knowledge/s Endo/Hugo Resolve 2015-09-16 Chelsea kill d 2- 12:00:00 Son deficit: pt 13:13: [id number] 00 Endo/Hugo diabetic Endo/Hugo Resolve 2016-06-29 Chelsea foot care d 2- 13:03:00 Son 13:13: [id number] 00 Nutrition knowledge/s Nutrition Resolve 2015-09-04 Chelsea kill d 2 13:13:00 oSn deficit: pt 13:13: [id number] 00 Neuro anxiety Neuro/Emot Resolve 2016-08-02 Chelsea present ion d 2- 10:30:00 Son 13:13: [id number] 00 Neuro depressive Neuro/Emot Resolve 2016-08-02 Chelsea feelings ion d 2- 10:30:00 Son present 13:13: [id number] 00 Neuro knowledge/s Neuro/Emot Resolve 2015-09-16 Chelsea kill ion d 2- 12:00:00 Son deficit: pt 13:13: [id number] 00 Activity ADL Activity Resolve 2016-04-27 Chelsea assistance d 2- 11:15:00 Son required 13:13: [id number] 00 Activity knowledge/s Activity Resolve 2016-03-01 Chelsea kill d 2- 12:00:00 Son deficit: pt 13:13: [id number] 00 Safety fall risk Safety Resolve 2015-09-16 Chelsea factor d 2-05 12:00:00 Cline present 13:13: [id number] 00 Safety risk for Safety Resolve 2015-09-16 Chelsea hospitaliza d 2-05 12:00:00 Cline tion 13:13: [id number] 00 Medication oral med Meds Resolve 2016-08-02 Chelsea assistance d 2-05 10:30:00 Cline required 13:13: [id number] 00 Medication injectable Meds Resolve 2016-08-02 Chelsea med d 2-05 10:30:00 Cline assistance 13:13: [id number] required 00 Medication knowledge/s Meds Resolve 2016-06-29 Chelsea kill d 2-05 13:03:00 Son deficit: pt 13:13: [id number] 00 Medication potential Meds Resolve 2016-08-02 Chelsea clinically d 2- 10:30:00 Son significant 13:13: [id number] medication 00 issue Diagnoses knowledge/s Diagnoses Active Chelsea kill - Cline deficit: pt 13:13: [id number] 00 Pain knowledge/s Pain Mgmt Resolve 2015-09-16 Cherrise kill d 2- 12:00:00 Linwood deficit: pt 12:00: [id number] 00 Safety sanitation Safety Resolve 2016-03-01 Cherrise hazards d 2-17 12:00:00 Abbe present 12:00: [id number] 00 Safety risk for Safety Resolve 2016-03-01 Cherrise hospitaliza d 2-18 12:00:00 Linwood tion 12:15: [id number] 00 Neuro knowledge/s Neuro/Emot Resolve 2016-08-16 Cherrise kill ion d 2- 12:45:00 Linwood deficit: pt 13:29: [id number] Safety structural Safety Resolve 2016-03-01 Cherrise barriers d 2- 12:00:00 Linwood present 13:29: [id number] 57 Respiratory knowledge/s Respirator Resolve 2016-04-27 Chelsea kill y d 10-27 11:15:00 Son deficit: cg 09:40: [id number] 00 Pain frequent Pain Mgmt Resolve 2018-08-28 Chelsea pain d 11-03 12:45:00 Son 13:04: [id number] 00 Pain knowledge/s Pain Mgmt Resolve 2016-02-24 Chelsea kill d 11-03 13:35:00 Son deficit: pt 13:04: [id number] 00 Respiratory knowledge/s Respirator Resolve 2016-04-27 Chelsea kill y d 11-03 11:15:00 Son deficit: pt 13:04: [id number] 00 Safety fall risk Safety Resolve 2016-03-01 Chelsea factor d 11-03 12:00:00 Son present 13:04: [id number] 00 Endo/Hugo insulin Endo/Hugo Resolve 2016-10-17 Chelsea admn d 11-24 12:30:00 Son dependence 10:48: [id number] 00 Safety safety Safety Resolve 2016-03-01 Chelsea hazards d 12-22 12:00:00 Cline present 09:15: [id number] 00 Elimination constipatio Eliminatio Resolve 2016-03-01 Chelsea n n d 12-29 12:00:00 Son 13:33: [id number] 00 IV IV present IV Resolve 2016-01-26 Chelsea d 12-29 11:50:00 Son 13:33: [id number] 00 Integument skin Integument Resolve 2016-04-27 Anna integrity d 01-25 11:15:00 Regeczi risk 11:50: [id number] 00 Nutrition knowledge/s Nutrition Resolve 2016-03-01 Cherrise kill d 02-26 12:00:00 Abbe deficit: pt 10:00: [id number] 00 Pain frequent Pain Mgmt Resolve 2018-08-28 Chelsea pain d 03-01 12:45:00 Son 12:00: [id number] 00 Nutrition knowledge/s Nutrition Resolve 2016-04-06 Neida kill d 03-23 14:54:00 Malnoske deficit: pt 13:30: RN 00 Endo/Hugo insulin Endo/Hugo Resolve 2016-10-17 Chelsea admn d 04-06 12:30:00 Cline dependence 14:54: [id number] 00 Nutrition changing Nutrition Resolve 2016-05-10 Chelsea weight/appe d 04-27 11:45:00 Son tite 11:15: [id number] 00 Nutrition knowledge/s Nutrition Resolve 2016-04-27 Chelsea kill d 04-27 11:15:00 Son deficit: pt 11:15: [id number] 00 Cardio hypertensio Cardiovasc Resolve 2016-09-20 Evi n ular d 08-02 10:00:00 Hai 10:30: [id number] 00 Respiratory lung sounds Respirator Resolve 2016-08-25 Evi deficit y d 08-02 10:30:00 Hai 10:30: [id number] 00 Respiratory CPAP Respirator Resolve 2016-10-17 Evi treatments y d 08-02 12:30:00 Hai in home 10:30: [id number] 00 Respiratory dyspnea Respirator Resolve 2016-10-17 Evi present y d 08-02 12:30:00 Hai 10:30: [id number] 00 Respiratory oxygen Respirator Resolve 2016-10-17 Evi treatments y d 08-02 12:30:00 Hai in home 10:30: [id number] 00 Integument knowledge/s Integument Resolve 2016-08-16 Evi kill d 08-02 12:45:00 Hai deficit: pt 10:30: [id number] 00 Medication knowledge/s Meds Resolve 2016-08-25 Evi kill d 08-02 10:30:00 Hai deficit: pt 10:30: [id number] 00 Neuro anxiety Neuro/Emot Resolve 2016-10-17 Evi present ion d 08-16 12:30:00 Hai 12:45: [id number] 00 Integument knowledge/s Integument Resolve 2016-08-25 Evi kill d 08-25 10:30:00 Hai deficit: pt 10:30: [id number] 00 Nutrition nutritional Nutrition Resolve 2016-08-25 Evi restriction d 08-25 10:30:00 Hai s 10:30: [id number] 00 Neuro knowledge/s Neuro/Emot Resolve 2016-2016-08-25 Evi kill ion d 08-25 10:30:00 Hai deficit: pt 10:30: [id number] 00 Medication oral med Meds Resolve 2016-08-25 Evi assistance d 08-25 10:30:00 Hai required 10:30: [id number] 00 Respiratory oxygen Respirator Unknown Evi treatments y 2-06 Hai in home 14:30: [id number] 00 Integument knowledge/s Integument Resolve 2016-09-05 Evi kill d 09-05 14:30:00 Hai deficit: pt 14:30: [id number] 00 Medication oral med Meds Resolve 2016-10-17 Evi assistance d 09-05 12:30:00 Hai required 14:30: [id number] 00 Medication knowledge/s Meds Resolve 2016-12-05 Evi kill d 09-05 17:00:00 Hai deficit: pt 14:30: [id number] 00 Respiratory lung sounds Respirator Resolve 2016-09-20 Evi deficit y d 2- 10:00:00 Hai 10:00: [id number] 00 Integument knowledge/s Integument Resolve 2016-10-17 Evi kill d 2- 12:30:00 Hai deficit: pt 10:00: [id number] 00 Integument other wound Integument Resolve 2016-10-17 Evi present d 2- 12:30:00 Hai 10:00: [id number] 00 Respiratory lung sounds Respirator Resolve 2018-10-09 Evi deficit y d 3-06 12:40:00 Hai 15:00: [id number] 00 Respiratory CPAP Respirator Unknown Evi treatments y 3-06 Hai in home 15:00: [id number] 00 Respiratory smoker Respirator Resolve 2016-10-17 Evi y d 3-06 12:30:00 Hai 15:00: [id number] 00 Respiratory nebulizer Respirator Unknown Evi treatment y 3-06 Hai in home 15:00: [id number] 00 Respiratory dyspnea Respirator Resolve 2016-11-07 Evi present y d 10-25 12:20:00 Hai 14:15: [id number] 00 Respiratory oxygen Respirator Unknown Evi treatments y 10-25 Hai in home 14:15: [id number] 00 Respiratory smoker Respirator Resolve 2016-11-07 Evi y d 10-25 12:20:00 Hai 14:15: [id number] 00 Integument other wound Integument Resolve 2016-10-25 Evi present d 10-25 14:15:00 Hai 14:15: [id number] 00 Nutrition nutritional Nutrition Resolve 2016-11-07 Evi restriction d 10-25 12:20:00 Hai s 14:15: [id number] 00 Neuro anxiety Neuro/Emot Resolve 2016-11-07 Evi present ion d 10-25 12:20:00 Hai 14:15: [id number] 00 Medication oral med Meds Resolve 2016-12-05 Evi assistance d 10-25 17:00:00 Hai required 14:15: [id number] 00 Medication potential Meds Resolve 2016-12-05 Evi clinically d 11-07 17:00:00 Hai significant 12:20: [id number] medication 00 issue Respiratory dyspnea Respirator Resolve 2016-11-21 Evi present y d 11-14 13:30:00 Hai 14:00: [id number] 00 Respiratory oxygen Respirator Unknown Evi treatments y 11-21 Hai in home 13:30: [id number] 00 Respiratory lung sounds Respirator Resolve 2018-10-09 Evi deficit y d 11-21 12:40:00 Hai 13:30: [id number] 00 Respiratory smoker Respirator Resolve 2016-11-21 Evi y d 11-21 13:30:00 Hai 13:30: [id number] 00 Respiratory nebulizer Respirator Unknown Evi treatment y 11-21 Hai in home 13:30: [id number] 00 Neuro anxiety Neuro/Emot Resolve 2016-12-25 Evi present ion d 11-21 13:30:00 Hai 13:30: [id number] 00 Respiratory oxygen Respirator Resolve 2018-09-18 Evi treatments y d 12-05 13:30:00 Hai in home 17:00: [id number] 00 Respiratory smoker Respirator Resolve 2016-12-05 Evi y d 12-05 17:00:00 Hai 17:00: [id number] 00 Respiratory nebulizer Respirator Resolve 2018-09-18 Evi treatment y d 12-05 13:30:00 Hai in home 17:00: [id number] 00 Endo/Hugo knowledge/s Endo/Hugo Resolve 2016-12-19 Evi kill d 12-05 13:00:00 Hai deficit: pt 17:00: [id number] 00 Medication knowledge/s Meds Resolve 2016-12-25 Evi kill d 12-19 13:30:00 Hai deficit: pt 13:00: [id number] 00 Respiratory dyspnea Respirator Resolve 2017-02-27 Evi present y d 12-25 12:30:00 Hai 13:30: [id number] 00 Integument other wound Integument Resolve 2017-01-02 Evi present d 12-25 11:50:00 Hai 13:30: [id number] 00 Medication knowledge/s Meds Resolve 2016-12-25 Evi kill d 12-25 13:30:00 Hai deficit: pt 13:30: [id number] 00 Respiratory smoker Respirator Resolve 2017-01-16 Evi y d 01-16 15:00:00 Hai 15:00: [id number] 00 Respiratory lung sounds Respirator Resolve 2017-02-13 Evi deficit y d 02-13 12:45:00 Hai 12:45: [id number] 00 Respiratory smoker Respirator Resolve 2017-02-13 Evi y d 02-13 12:45:00 Hai 12:45: [id number] 00 Respiratory smoker Respirator Resolve 2017-02-27 Evi y d 02-24 12:30:00 Hai 13:00: [id number] 00 Integument other wound Integument Resolve 2017-02-24 Evi present d 02-24 13:00:00 Hai 13:00: [id number] 00 Nutrition nutritional Nutrition Resolve 2017-04-03 Tammee restriction d - 12:25:00 Eric garcia 13:00: an 00 Integument other wound Integument Resolve 2017-05-01 Evi present d 04-25 12:15:00 Hai 13:00: [id number] 00 Neuro depressive Neuro/Emot Resolve 2017-05-01 Evi feelings ion d 04-25 12:15:00 Hai present 13:00: [id number] 00 Neuro anxiety Neuro/Emot Resolve 2017-05-01 Evi present ion d 04-25 12:15:00 Hai 13:00: [id number] 00 Respiratory lung sounds Respirator Resolve 2016-072017-05-01 Evi deficit y d 0- 12:15:00 Hai 12:15: [id number] 00 Respiratory smoker Respirator Resolve 2016-072017-06-12 Evi y d 1- 11:14:00 Hai 11:14: [id number] 00 Respiratory smoker Respirator Resolve 2016-072017-06-21 Evi y d 08-21 11:15:00 Hai 11:15: [id number] 00 Integument other wound Integument Resolve 2016-072017-06-21 Evi present d 08-21 11:15:00 Hai 11:15: [id number] 00 Respiratory lung sounds Respirator Resolve 2016-072017-06-26 Evi deficit y d 08-26 12:15:00 Hai 12:15: [id number] 00 Respiratory lung sounds Respirator Unknown 2016-07 Evi deficit y 2-11 Hai 12:20: [id number] 00 Respiratory smoker Respirator Resolve 2016-072017-08-03 Evi y d 2-28 11:30:00 Hai 12:10: [id number] 00 Respiratory lung sounds Respirator Resolve 2017-08-03 Evi deficit y d 1- 11:30:00 Hai 11:30: [id number] 00 Respiratory lung sounds Respirator Resolve 2017-08-07 Evi deficit y d 1- 10:20:00 Hai 10:20: [id number] 00 Respiratory smoker Respirator Resolve 2017-08-07 Evi y d 1-08 10:20:00 Hia 10:20: [id number] 00 Respiratory lung sounds Respirator Resolve 2017-2017-08-14 Evi deficit y d 1-15 11:30:00 Hai 11:30: [id number] 00 Respiratory smoker Respirator Resolve 2017-2017-08-14 Evi y d 1-15 11:30:00 Hai 11:30: [id number] 00 Integument other wound Integument Resolve 2017-2017-08-21 Evi present d 1- 10:50:00 Hai 10:50: [id number] 00 Respiratory smoker Respirator Resolve 2017-2017-09-04 Evi y d 1- 12:40:00 Hai 12:30: [id number] 00 Respiratory lung sounds Respirator Resolve 2017-09-11 Evi deficit y d 2-12 13:00:00 Hai 13:00: [id number] 00 Respiratory lung sounds Respirator Resolve 2017-09-20 Evi deficit y d 2-21 11:15:00 Hai 11:15: [id number] 00 Respiratory lung sounds Respirator Resolve 2017-2017-09-27 Evi deficit y d 2-28 11:45:00 Hai 11:45: [id number] 00 Respiratory lung sounds Respirator Resolve 2017-10-18 Evi deficit y d 3-21 11:00:00 Hai 11:00: [id number] 00 Respiratory smoker Respirator Resolve 2017-10-18 Evi y d 3-21 11:00:00 Hai 11:00: [id number] 00 Integument other wound Integument Resolve 2017-10-25 Evi present d 3-21 11:00:00 Hai 11:00: [id number] 00 Respiratory lung sounds Respirator Resolve 2018-10-09 Evi deficit y d 4-10 12:40:00 Hai 14:45: [id number] 00 Respiratory smoker Respirator Resolve 2017-2017-11-15 Evi y d 4-18 11:00:00 Hai 11:00: [id number] 00 Respiratory lung sounds Respirator Resolve 2017-2018-10-09 Evi deficit y d 4-25 12:40:00 Hai 13:40: [id number] 00 Respiratory smoker Respirator Resolve 2017-11-22 Evi y d 11-22 13:40:00 Hai 13:40: [id number] 00 Respiratory smoker Respirator Resolve 2017-12-06 Evi y d 12-06 13:15:00 Hai 13:15: [id number] 00 Respiratory lung sounds Respirator Resolve 2017-12-13 Evi deficit y d 12-13 13:00:00 Hai 13:00: [id number] 00 Respiratory lung sounds Respirator Resolve 2017-12-26 Evi deficit y d 12-20 12:05:00 Hai 13:15: [id number] 00 Integument other wound Integument Resolve 2017-12-26 Evi present d 12-20 12:05:00 Hai 13:15: [id number] 00 Respiratory lung sounds Respirator Resolve 2018-01-03 Evi deficit y d 06 12:38:00 Hai 12:38: [id number] 00 Respiratory lung sounds Respirator Resolve 2018-10-09 Evi deficit y d 6-13 12:40:00 Hai 15:00: [id number] 00 Respiratory smoker Respirator Resolve 2018-01-10 Evi y d 6-13 15:00:00 Hai 15:00: [id number] 00 Respiratory lung sounds Respirator Resolve 2018-01-24 Evi deficit y d 6- 13:10:00 Hai 13:10: [id number] 00 Nutrition nutritional Nutrition Resolve 2019-08-13 Evi restriction d 6 10:50:00 Hai s 13:10: [id number] 00 Safety sanitation Safety Resolve 2018-06-05 Evi hazards d 6- 10:35:00 Hai present 13:10: [id number] 00 Safety fall risk Safety Resolve 2018-02-19 Evi factor d 6 14:02:00 Hai present 13:10: [id number] 00 Safety risk for Safety Resolve 2018-10-30 Evi hospitaliza d 01-24 13:06:00 Hai tion 13:10: [id number] 00 Safety structural Safety Resolve 2018-02-19 Evi barriers d 01-24 14:02:00 Hai present 13:10: [id number] 00 Safety safety Safety Resolve 2018-02-19 Evi hazards d 01-24 14:02:00 Hai present 13:10: [id number] 00 Medication oral med Meds Active Evi assistance 01-24 Hai required 13:10: [id number] 00 Medication injectable Meds Active Evi med 01-24 Hai assistance 13:10: [id number] required 00 Respiratory lung sounds Respirator Resolve 2018-10-09 Evi deficit y d 01-29 12:40:00 Hai 13:45: [id number] 00 Respiratory smoker Respirator Resolve 2018-02-07 Evi y d 01-29 13:00:00 Hai 13:45: [id number] 00 Respiratory smoker Respirator Resolve 2018-03-01 Evi y d 02-19 11:42:00 Hai 14:02: [id number] 00 Integument other wound Integument Resolve 2018-03-21 Evi present d 02-19 15:30:00 Hai 14:02: [id number] 00 Respiratory smoker Respirator Resolve 2018-03-28 Evi y d 03-28 11:36:00 Hai 11:36: [id number] 00 Respiratory smoker Respirator Resolve 2018-04-03 Evi y d 04-03 14:00:00 Hai 14:00: [id number] 00 Respiratory smoker Respirator Resolve 2018-04-10 Evi y d 04-10 14:40:00 Hai 14:40: [id number] 00 Integument other wound Integument Resolve 2018-04-24 Evi present d 04-18 10:16:00 Hai 11:00: [id number] 00 Respiratory smoker Respirator Resolve 2017-072018-05-16 Evi y d 0 14:20:00 Hai 10:50: [id number] 00 Respiratory smoker Respirator Resolve 2017-072018-05-29 Evi y d 11:30:00 Hai 11:30: [id number] 00 Respiratory smoker Respirator Resolve 2017-072018-06-05 Evi y d 08-05 10:35:00 Hai 10:35: [id number] 00 Safety safety Safety Resolve 2017-072018-06-05 Evi hazards d 08-05 10:35:00 Hai present 10:35: [id number] 00 Integument other wound Integument Resolve 2017-072018-06-26 Evi present d 08-19 15:15:00 Hai 11:12: [id number] 00 Respiratory smoker Respirator Resolve 2017-072018-06-26 Evi y d 08-26 15:15:00 Hai 15:15: [id number] 00 Respiratory smoker Respirator Resolve 2017-072018-07-03 Evi y d 09-03 11:13:00 Hai 11:13: [id number] 00 Respiratory smoker Respirator Resolve 2017-072018-07-17 Evi y d 09-10 11:38:00 Hai 11:20: [id number] 00 Respiratory smoker Respirator Resolve 2017-072018-07-23 Evi y d 09-23 10:00:00 Hai 10:00: [id number] 00 Integument other wound Integument Resolve 2018-08-14 Evi present d 08-14 15:44:00 Hai 15:44: [id number] 00 Pain frequent Pain Mgmt Resolve 2018-08-28 Evi pain d 08-25 12:45:00 Hai 09:33: [id number] 56 Pain severe pain Pain Mgmt Resolve 2018-08-28 Evi d 08-25 12:45:00 Hai 09:33: [id number] 56 Integument other wound Integument Resolve 2018-08-28 Evi present d 08-25 12:45:00 Hai 09:33: [id number] 56 Respiratory smoker Respirator Resolve 2018-08-28 Evi y d 08-28 12:45:00 Hai 12:45: [id number] 00 Respiratory smoker Respirator Resolve 2018-09-04 Evi y d 09-04 11:30:00 Hai 11:30: [id number] 00 Respiratory smoker Respirator Resolve 2018-09-18 Evi y d 09-10 13:30:00 Hai 16:40: [id number] 00 Pain severe pain Pain Mgmt Resolve 2018-09-25 Evi d 2-19 10:30:00 Hai 13:30: [id number] 00 Neuro anxiety Neuro/Emot Unknown Evi present ion 09-18 Hai 13:30: [id number] 00 Respiratory oxygen Respirator Resolve 2018-10-16 Evi treatments y d 3-05 11:45:00 Hai in home 10:45: [id number] 00 Respiratory smoker Respirator Resolve 2018-10-09 Evi y d 3-05 12:40:00 Hai 10:45: [id number] 00 Respiratory nebulizer Respirator Resolve 2018-10-16 Evi treatment y d - 11:45:00 Hai in home 10:45: [id number] 00 Respiratory lung sounds Respirator Resolve 2018-10-16 Evi deficit y d 3 11:45:00 Hai 11:45: [id number] 00 Respiratory smoker Respirator Resolve 2018-10-16 Evi y d 3 11:45:00 Hai 11:45: [id number] 00 Integument other wound Integument Resolve 2018-10-23 Evi present d 10-16 11:20:00 Hai 11:45: [id number] 00 Respiratory nebulizer Respirator Resolve 2018-10-23 Evi treatment y d 10-23 11:20:00 Hai in home 11:20: [id number] 00 Safety safety Safety Resolve 2018-10-23 Evi hazards d 10-23 11:20:00 Hai present 11:20: [id number] 00 Respiratory lung sounds Respirator Unknown Evi deficit y 10-30 Hai 13:06: [id number] 00 Respiratory oxygen Respirator Resolve 2018-11-20 Evi treatments y d 11-06 10:35:00 Hai in home 11:31: [id number] 00 Respiratory smoker Respirator Resolve 2018-2018-11-06 Evi y d 11-06 11:31:00 Hai 11:31: [id number] 00 Respiratory nebulizer Respirator Resolve 2018-11-20 Evi treatment y d 11-06 10:35:00 Hai in home 11:31: [id number] 00 Safety risk for Safety Resolve 2018-11-12 Evi hospitaliza d 11-06 10:00:00 Hai tion 11:31: [id number] 00 Respiratory smoker Respirator Resolve 2018-11-20 Evi y d 11-12 10:35:00 Hai 10:00: [id number] 00 Respiratory lung sounds Respirator Resolve 2018-11-20 Evi deficit y d 11-20 10:35:00 Hai 10:35: [id number] 00 Safety risk for Safety Resolve 2018-11-27 Evi hospitaliza d 11-20 11:00:00 Hai tion 10:35: [id number] 00 Pain severe pain Pain Mgmt Resolve 2018-12-04 Evi d 11-27 11:35:00 Hai 11:00: [id number] 00 Respiratory oxygen Respirator Resolve 2018-12-12 Evi treatments y d 11-27 09:08:00 Hai in home 11:00: [id number] 00 Respiratory lung sounds Respirator Resolve 2018-12-04 Evi deficit y d 11-27 11:35:00 Hai 11:00: [id number] 00 Respiratory nebulizer Respirator Resolve 2018-12-12 Evi treatment y d 11-27 09:08:00 Hai in home 11:00: [id number] 00 Respiratory smoker Respirator Resolve 2018-12-04 Evi y d 12-04 11:35:00 Hai 11:35: [id number] 00 Safety risk for Safety Resolve 2018-12-12 Evi hospitaliza d 12-04 09:08:00 Hai tion 11:35: [id number] 00 Cardio hypertensio Cardiovasc Resolve 2018-12-18 Evi n ular d 12-12 14:00:00 Hai 09:08: [id number] 00 Respiratory lung sounds Respirator Resolve 2018-12-12 Evi deficit y d 12-12 09:08:00 Hai 09:08: [id number] 00 Respiratory smoker Respirator Resolve 2018-12-12 Evi y d 5-15 09:08:00 Hai 09:08: [id number] 00 Integument other wound Integument Resolve 2018-12-18 Evi present d 5-15 14:00:00 Hai 09:08: [id number] 00 Safety risk for Safety Resolve 2019-01-01 Evi hospitaliza d 12-18 13:20:00 Hai tion 14:00: [id number] 00 Cardio hypertensio Cardiovasc Resolve 2018-2019-01-01 Evi n ular d 12-25 13:20:00 Hai 10:30: [id number] 00 Respiratory oxygen Respirator Resolve 2018-2019-01-08 Evi treatments y d 12-25 11:00:00 Hai in home 10:30: [id number] 00 Respiratory lung sounds Respirator Resolve 2018-2019-01-01 Evi deficit y d 12-25 13:20:00 Hai 10:30: [id number] 00 Respiratory nebulizer Respirator Resolve 2019-01-08 Evi treatment y d 12-25 11:00:00 Hai in home 10:30: [id number] 00 Cardio hypertensio Cardiovasc Resolve 2019-01-15 Evi n ular d - 12:05:00 Hai 11:00: [id number] 00 Respiratory smoker Respirator Resolve 2019-01-08 Evi y d 6- 11:00:00 Hai 11:00: [id number] 00 Respiratory lung sounds Respirator Resolve 2018-2019-01-08 Evi deficit y d 6- 11:00:00 Hai 11:00: [id number] 00 Safety risk for Safety Resolve 2019-01-15 Evi hospitaliza d - 12:05:00 Hai tion 11:00: [id number] 00 Respiratory lung sounds Respirator Unknown Evi deficit y 6 Hai 12:05: [id number] 00 Respiratory nebulizer Respirator Resolve 2018-2019-01-22 Evi treatment y d 6- 11:45:00 Hai in home 12:05: [id number] 00 Respiratory oxygen Respirator Resolve 2018-2019-01-22 Evi treatments y d 6 11:45:00 Hai in home 11:45: [id number] 00 Respiratory smoker Respirator Resolve 2019-01-22 Evi y d 6 11:45:00 Hai 11:45: [id number] 00 Respiratory lung sounds Respirator Resolve 2018-2019-02-05 Evi deficit y d 01-29 11:30:00 Hai 11:40: [id number] 00 Respiratory smoker Respirator Resolve 2019-02-05 Evi y d 01-29 11:30:00 Hai 11:40: [id number] 00 Respiratory nebulizer Respirator Resolve 2019-02-05 Evi treatment y d 01-29 11:30:00 Hai in home 11:40: [id number] 00 Pain severe pain Pain Mgmt Resolve 2019-02-12 Evi d 02-08 13:30:00 Hai 16:30: [id number] 00 Respiratory oxygen Respirator Resolve 2019-02-19 Evi treatments y d 02-12 14:00:00 Hai in home 13:30: [id number] 00 Respiratory nebulizer Respirator Resolve 2019-02-19 Evi treatment y d 02-12 14:00:00 Hai in home 13:30: [id number] 00 Integument other wound Integument Resolve 2019-02-12 Evi present d 02-12 13:30:00 Hai 13:30: [id number] 00 Safety fall risk Safety Resolve 2019-02-12 Evi factor d 02-12 13:30:00 Hai present 13:30: [id number] 00 Safety risk for Safety Resolve 2019-07-02 Evi hospitaliza d 02-12 11:45:00 Hai tion 13:30: [id number] 00 Respiratory smoker Respirator Resolve 2019-02-19 Evi y d 02-19 14:00:00 Hai 14:00: [id number] 00 Integument knowledge/s Integument Resolve 2019-02-27 Evi kill d 02-19 11:00:00 Hai deficit: pt 14:00: [id number] 00 Respiratory nebulizer Respirator Unknown Evi treatment y 7-31 Hai in home 11:00: [id number] 00 Respiratory smoker Respirator Resolve 2019-03-05 Evi y d 8 13:00:00 Hai 13:00: [id number] 00 Respiratory lung sounds Respirator Resolve 2019-04-09 Evi deficit y d 8 14:30:00 Hai 13:00: [id number] 00 Endo/Hugo glucose Endo/Hugo Resolve 2019-03-19 Evi tolerance d 03-05 13:30:00 Hai problem 13:00: [id number] 00 Endo/Hugo knowledge/s Endo/Hugo Resolve 2019-03-19 Evi kill d 03-05 13:30:00 Hai deficit 13:00: [id number] hypo/hyperg 00 lycemia: pt Integument other wound Integument Resolve 2019-03-05 Evi present d 03-05 13:00:00 Hai 13:00: [id number] 00 Respiratory oxygen Respirator Resolve 2019-03-26 Evi treatments y d 8-13 16:55:00 Hai in home 13:00: [id number] 00 Respiratory nebulizer Respirator Resolve 2019-03-26 Evi treatment y d 8-13 16:55:00 Hai in home 13:00: [id number] 00 Respiratory oxygen Respirator Resolve 2019-04-09 Evi treatments y d 903 14:30:00 Hai in home 12:15: [id number] 00 Respiratory nebulizer Respirator Resolve 2019-04-09 Evi treatment y d 9 14:30:00 Hai in home 12:15: [id number] 00 Endo/Hugo knowledge/s Endo/Hugo Resolve 2019-06-25 Evi kill d 04-02 12:00:00 Hai deficit: pt 12:15: [id number] 00 Endo/Hugo knowledge/s Endo/Hugo Resolve 2019-06-25 Evi kill d 04-02 12:00:00 Hai deficit 12:15: [id number] hypo/hyperg 00 lycemia: pt Respiratory smoker Respirator Resolve 2019-04-09 Evi y d 04-09 14:30:00 Hai 14:30: [id number] 00 Endo/Hugo glucose Endo/Hugo Resolve 2019-04-09 Evi tolerance d 9-10 14:30:00 Hai problem 14:30: [id number] 00 Respiratory oxygen Respirator Resolve 2019-04-23 Evi treatments y d 9-16 14:15:00 Hai in home 14:00: [id number] 00 Respiratory smoker Respirator Resolve 2019-04-23 Evi y d 9-16 14:15:00 Hai 14:00: [id number] 00 Respiratory nebulizer Respirator Resolve 2019-04-23 Evi treatment y d 9-16 14:15:00 Hai in home 14:00: [id number] 00 Endo/Hugo anti-coagul Endo/Hugo Resolve 2019-04-23 Evi ation d 9- 14:15:00 Hai therapy 14:00: [id number] 00 Endo/Hugo glucose Endo/Hugo Resolve 2019-04-23 Evi tolerance d 24 14:15:00 Hai problem 14:15: [id number] 00 Respiratory lung sounds Respirator Resolve 2018-072019-05-07 Evi deficit y d 0-01 15:20:00 Hai 11:06: [id number] 00 Respiratory smoker Respirator Resolve 2018-072019-05-07 Evi y d 0-01 15:20:00 Hai 11:06: [id number] 00 Respiratory oxygen Respirator Resolve 2018-072019-05-15 Evi treatments y d 0-08 10:00:00 Hai in home 15:20: [id number] 00 Respiratory nebulizer Respirator Resolve 2018-072019-05-15 Evi treatment y d 0-08 10:00:00 Hai in home 15:20: [id number] 00 Respiratory lung sounds Respirator Resolve 2018-072019-05-15 Evi deficit y d 0-16 10:00:00 Hai 10:00: [id number] 00 Respiratory lung sounds Respirator Resolve 2018-072019-05-28 Evi deficit y d 0-23 13:15:00 Hai 09:30: [id number] 00 Respiratory oxygen Respirator Resolve 2018-072019-08-13 Evi treatments y d 0-29 10:50:00 Hai in home 13:15: [id number] 00 Respiratory nebulizer Respirator Resolve 2018-072019-08-13 Evi treatment y d 0-29 10:50:00 Hai in home 13:15: [id number] 00 Respiratory smoker Respirator Resolve 2018-072019-05-28 Evi y d 0-29 13:15:00 Hai 13:15: [id number] 00 Respiratory lung sounds Respirator Resolve 2018-072019-06-04 Evi deficit y d 1-05 12:00:00 Hai 12:00: [id number] 00 Respiratory lung sounds Respirator Resolve 2018-072019-06-25 Evi deficit y d 1-11 12:00:00 Hai 11:00: [id number] 00 Respiratory smoker Respirator Resolve 2018-072019-06-18 Evi y d 1-11 12:45:00 Hai 11:00: [id number] 00 Integument other wound Integument Resolve 2018-072019-06-18 Evi present d 1-11 12:45:00 Hai 11:00: [id number] 00 Safety fall risk Safety Resolve 2018-072019-06-25 Evi factor d 1-11 12:00:00 Hai present 11:00: [id number] 00 Respiratory smoker Respirator Resolve 2018-072019-06-25 Evi y d 1- 12:00:00 Hai 12:00: [id number] 00 Neuro anxiety Neuro/Emot Active 2018-07 Evi present ion - Hai 12:00: [id number] 00 Neuro memory Neuro/Emot Active 2018-07 Evi deficit ion - Hai needing 12:00: [id number] 00 Respiratory smoker Respirator Resolve 2018-072019-07-30 Evi y d 2-03 11:00:00 Hai 11:45: [id number] 00 Respiratory lung sounds Respirator Resolve 2018-072019-07-30 Evi deficit y d 2-11 11:00:00 Hai 13:05: [id number] 00 Safety risk for Safety Resolve 2018-072019-07-10 Evi hospitaliza d 2-11 13:05:00 Hai tion 13:05: [id number] 00 Safety risk for Safety Resolve 2018[facility]072019-07-23 [facility] Hai tion 15:00: [id number] 00 Safety risk for Safety Resolve 2018-072019-07-30 Evi [facility] d 11:00:00 Hai tion 11:00: [id number] 00 Safety risk for Safety Resolve 2019-2019-08-13 Evi [facility] d 08-06 10:50:00 Hai tion 12:30: [id number] 00 Medication potential Meds Active 2019- Evi clinically 08-06 Hai significant 12:30: [id number] medication 00 issue Cardio hypertensio Cardiovasc Resolve 2019-0 2019-08-27 Evi n ular d 08-13 11:10:00 Hai 10:50: [id number] 00 Respiratory knowledge/s Respirator Resolve 2019-0 2019-08-13 Evi kill y d 08-13 10:50:00 Hai deficit: pt 10:50: [id number] 00 Respiratory lung sounds Respirator Resolve 0 2019-08-13 Evi deficit y d 08-13 10:50:00 Hai 10:50: [id number] 00 Respiratory smoker Respirator Resolve 2019-0 2019-08-13 Evi y d 08-13 10:50:00 Hai 10:50: [id number] 00 Integument other wound Integument Active 2019- Evi present 08-13 Hai 10:50: [id number] 00 Neuro depressive Neuro/Emot Active Evi feelings ion -14 Hai present 10:50: [id number] 00 Medication knowledge/s Meds Active Evi kill 08-13 Hai deficit: pt 10:50: [id number] 00 Respiratory oxygen Respirator Active Evi treatments y 1-21 Hai in home 13:20: [id number] 00 Respiratory knowledge/s Respirator Active 2019- Evi kill y -21 Hai deficit: pt 13:20: [id number] 00 Respiratory lung sounds Respirator Active Evi deficit y -21 Hai 13:20: [id number] 00 Respiratory smoker Respirator Active 2019- Evi y - Hai 13:20: [id number] 00 Respiratory nebulizer Respirator Active Evi treatment y 1-21 Hai in home 13:20: [id number] 00 Endo/Hugo glucose Endo/Hugo Active Evi tolerance 1-21 Hai problem 13:20: [id number] 00 Endo/Hugo knowledge/s Endo/Hugo Active Evi kill 1-21 Hai deficit: pt 13:20: [id number] 00 Endo/Hugo knowledge/s Endo/Hugo Active Evi kill - Ahi deficit 13:20: [id number] hypo/hyperg 00 lycemia: pt Neuro impaired Neuro/Emot Active Evi decision-ma ion - Hai zainab 11:10: [id number] 00 Allergies, Adverse Reactions, Alerts Allergy Allergy [...] liter Unknown permeable permeable 09-04- ,Leroy lens cataract lens generator area cleaner liquid liquid FLUoxetine FLUoxetine No Darlow [...] Yes Bael Unknown Unknown oxide oxide 08-20 ,[place] Vital Signs Vital Name Observation Time [...]
--- OUTSIDE RECORDS SUMMARY | 2019-09-17 05:41 | XMS REPORT ---
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 [id number] with with hyperglycem hyperglycem ia ia Chronic Chronic Diagnosis Active Evi obstructive obstructive 2- Hai pulmonary pulmonary [id number] disease, disease, unspecified unspecified Essential Essential Diagnosis Active Evi (primary) (primary) 2- Hai hypertensio hypertensio [id number] n n Other Other Diagnosis Active Evi chronic chronic 2-05 Hai pain pain [id number] 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, disorder, 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, recurrent, unspecified unspecified Gastro-esop Gastro-esop Diagnosis Active Evi hageal hageal 2- Hai reflux reflux [id number] disease disease without without esophagitis esophagitis 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 [id number] Low back Low back Diagnosis Active Evi pain pain Hai [id number] Hyperlipide Hyperlipide Diagnosis Active Evi hank, hank, Hai unspecified unspecified [id number] Hypothyroid Hypothyroid Diagnosis Active Evi ism, ism, Hai unspecified unspecified [id number] Respiratory treatments Respirator Resolve 2016-10-17 Chelsea ordered y d 2- 12:30:00 Son [id number] Pain frequent Pain Mgmt Resolve 2018-08-28 Chelsea pain d 2- 12:45:00 Son 13:13: [id number] 00 Pain knowledge/s Pain Mgmt Resolve 2015-09-09 Chelsea kill d 09-04 10:40:00 Son deficit: pt 13:13: [id number] 00 Pain severe pain Pain Mgmt Resolve 29 Chelsea d 2-05 12:45:00 Son 13:13: [id number] 00 Respiratory dyspnea Respirator Resolve 2016-10-17 Chelsea present y d 2- 12:30:00 oSn 13:13: [id number] 00 Respiratory oxygen Respirator Resolve 2016-10-17 Chelsea treatments y d 2- 12:30:00 Son in home 13:13: [id number] 00 Respiratory knowledge/s Respirator Resolve 2015-09-16 Chelsea kill y d 2- 12:00:00 Son deficit: pt 13:13: [id number] 00 Respiratory lung sounds Respirator Resolve 2016-06-29 Chelsea deficit y d 2 13:03:00 Son 13:13: [id number] 00 Endo/Hugo knowledge/s Endo/Hugo Resolve 2015-09-16 Chelsea kill d 2- 12:00:00 Son deficit: pt 13:13: [id number] 00 Endo/Hugo diabetic Endo/Hugo Resolve 2016-06-29 Chelsea foot care d 2- 13:03:00 Son 13:13: [id number] 00 Nutrition knowledge/s Nutrition Resolve 2015-09-04 Chelsea kill d 2 13:13:00 Son deficit: pt 13:13: [id number] 00 Neuro anxiety Neuro/Emot Resolve 2016-08-02 Chelsea present ion d 2- 10:30:00 Son 13:13: [id number] 00 Neuro depressive Neuro/Emot Resolve 2016-08-02 Chelsea feelings ion d 2- 10:30:00 Son present 13:13: [id number] 00 Neuro knowledge/s Neuro/Emot Resolve 2015-09-16 Chelsea kill ion d 2- 12:00:00 Son deficit: pt 13:13: [id number] 00 Activity ADL Activity Resolve 2016-04-27 Chelsea assistance d 2- 11:15:00 Son required 13:13: [id number] 00 Activity knowledge/s Activity Resolve 2016-03-01 Chelsea kill d 2- 12:00:00 Son deficit: pt 13:13: [id number] 00 Safety fall risk Safety Resolve 2015-09-16 Chelsea factor d 2-05 12:00:00 Cline present 13:13: [id number] 00 Safety risk for Safety Resolve 2015-09-16 Chelsea hospitaliza d 2-05 12:00:00 Cline tion 13:13: [id number] 00 Medication oral med Meds Resolve 2016-08-02 Chelsea assistance d 2-05 10:30:00 Cline required 13:13: [id number] 00 Medication injectable Meds Resolve 2016-08-02 Chelsea med d 2-05 10:30:00 Cline assistance 13:13: [id number] required 00 Medication knowledge/s Meds Resolve 2016-06-29 Chelsea kill d 2-05 13:03:00 Son deficit: pt 13:13: [id number] 00 Medication potential Meds Resolve 2016-08-02 Chelsea clinically d 2- 10:30:00 Son significant 13:13: [id number] medication 00 issue Diagnoses knowledge/s Diagnoses Active Chelsea kill - Cline deficit: pt 13:13: [id number] 00 Pain knowledge/s Pain Mgmt Resolve 2015-09-16 Cherrise kill d 2- 12:00:00 [place] deficit: pt 12:00: [id number] 00 Safety sanitation Safety Resolve 2016-03-01 Cherrise hazards d 2-17 12:00:00 Abbe present 12:00: [id number] 00 Safety risk for Safety Resolve 2016-03-01 Cherrise hospitaliza d 2-18 12:00:00 [place] tion 12:15: [id number] 00 Neuro knowledge/s Neuro/Emot Resolve 2016-08-16 Cherrise kill ion d 2- 12:45:00 [place] deficit: pt 13:29: [id number] Safety structural Safety Resolve 2016-03-01 Cherrise barriers d 2- 12:00:00 [place] present 13:29: [id number] 57 Respiratory knowledge/s Respirator Resolve 2016-04-27 Chelsea kill y d 10-27 11:15:00 Son deficit: cg 09:40: [id number] 00 Pain frequent Pain Mgmt Resolve 2018-08-28 Chelsea pain d 11-03 12:45:00 Son 13:04: [id number] 00 Pain knowledge/s Pain Mgmt Resolve 2016-02-24 Chelsea kill d 11-03 13:35:00 Son deficit: pt 13:04: [id number] 00 Respiratory knowledge/s Respirator Resolve 2016-04-27 Chelsea kill y d 11-03 11:15:00 Son deficit: pt 13:04: [id number] 00 Safety fall risk Safety Resolve 2016-03-01 Chelsea factor d 11-03 12:00:00 Son present 13:04: [id number] 00 Endo/Hugo insulin Endo/Hugo Resolve 2016-10-17 Chelsea admn d 11-24 12:30:00 Son dependence 10:48: [id number] 00 Safety safety Safety Resolve 2016-03-01 Chelsea hazards d 12-22 12:00:00 Cline present 09:15: [id number] 00 Elimination constipatio Eliminatio Resolve 2016-03-01 Chelsea n n d 12-29 12:00:00 Son 13:33: [id number] 00 IV IV present IV Resolve 2016-01-26 Chelsea d 12-29 11:50:00 Son 13:33: [id number] 00 Integument skin Integument Resolve 2016-04-27 Anna integrity d 01-25 11:15:00 Regeczi risk 11:50: [id number] 00 Nutrition knowledge/s Nutrition Resolve 2016-03-01 Cherrise kill d 02-26 12:00:00 Abbe deficit: pt 10:00: [id number] 00 Pain frequent Pain Mgmt Resolve 2018-08-28 Chelsea pain d 03-01 12:45:00 Son 12:00: [id number] 00 Nutrition knowledge/s Nutrition Resolve 2016-04-06 Neida kill d 03-23 14:54:00 [place] deficit: pt 13:30: RN 00 Endo/Hugo insulin Endo/Hugo Resolve 2016-10-17 Chelsea admn d 04-06 12:30:00 Cline dependence 14:54: [id number] 00 Nutrition changing Nutrition Resolve 2016-05-10 Chelsea weight/appe d 04-27 11:45:00 Son tite 11:15: [id number] 00 Nutrition knowledge/s Nutrition Resolve 2016-04-27 [place] kill d 04-27 11:15:00 Son deficit: pt 11:15: [id number] 00 Cardio hypertensio Cardiovasc Resolve 2016-09-20 Evi n ular d 08-02 10:00:00 Hai 10:30: [id number] 00 Respiratory lung sounds Respirator Resolve 2016-08-25 Evi deficit y d 08-02 10:30:00 Hai 10:30: [id number] 00 Respiratory CPAP Respirator Resolve 2016-10-17 Evi treatments y d 08-02 12:30:00 Hai in home 10:30: [id number] 00 Respiratory dyspnea Respirator Resolve 2016-10-17 Evi present y d 08-02 12:30:00 Hai 10:30: [id number] 00 Respiratory oxygen Respirator Resolve 2016-10-17 Evi treatments y d 08-02 12:30:00 Hai in home 10:30: [id number] 00 Integument knowledge/s Integument Resolve 2016-08-16 Evi kill d 08-02 12:45:00 Hai deficit: pt 10:30: [id number] 00 Medication knowledge/s Meds Resolve 2016-08-25 Evi kill d 08-02 10:30:00 Hai deficit: pt 10:30: [id number] 00 Neuro anxiety Neuro/Emot Resolve 2016-10-17 Evi present ion d 08-16 12:30:00 Hai 12:45: [id number] 00 Integument knowledge/s Integument Resolve 2016-08-25 Evi kill d 08-25 10:30:00 Hai deficit: pt 10:30: [id number] 00 Nutrition nutritional Nutrition Resolve 2016-08-25 Evi restriction d 08-25 10:30:00 Hai s 10:30: [id number] 00 Neuro knowledge/s Neuro/Emot Resolve 2016-2016-08-25 Evi kill ion d 08-25 10:30:00 Hai deficit: pt 10:30: [id number] 00 Medication oral med Meds Resolve 2016-08-25 Evi assistance d 08-25 10:30:00 Hai required 10:30: [id number] 00 Respiratory oxygen Respirator Unknown Evi treatments y 2-06 Hai in home 14:30: [id number] 00 Integument knowledge/s Integument Resolve 2016-09-05 Evi kill d 09-05 14:30:00 Hai deficit: pt 14:30: [id number] 00 Medication oral med Meds Resolve 2016-10-17 Evi assistance d 09-05 12:30:00 Hai required 14:30: [id number] 00 Medication knowledge/s Meds Resolve 2016-12-05 Evi kill d 09-05 17:00:00 Hai deficit: pt 14:30: [id number] 00 Respiratory lung sounds Respirator Resolve 2016-09-20 Evi deficit y d 2- 10:00:00 Hai 10:00: [id number] 00 Integument knowledge/s Integument Resolve 2016-10-17 Evi kill d 2- 12:30:00 Hai deficit: pt 10:00: [id number] 00 Integument other wound Integument Resolve 2016-10-17 Evi present d 2- 12:30:00 Hai 10:00: [id number] 00 Respiratory lung sounds Respirator Resolve 2018-10-09 Evi deficit y d 3-06 12:40:00 Hai 15:00: [id number] 00 Respiratory CPAP Respirator Unknown Evi treatments y 3-06 Hai in home 15:00: [id number] 00 Respiratory smoker Respirator Resolve 2016-10-17 Evi y d 3-06 12:30:00 Hai 15:00: [id number] 00 Respiratory nebulizer Respirator Unknown Evi treatment y 3-06 Hai in home 15:00: [id number] 00 Respiratory dyspnea Respirator Resolve 2016-11-07 Evi present y d 10-25 12:20:00 Hai 14:15: [id number] 00 Respiratory oxygen Respirator Unknown Evi treatments y 10-25 Hai in home 14:15: [id number] 00 Respiratory smoker Respirator Resolve 2016-11-07 Evi y d 10-25 12:20:00 Hai 14:15: [id number] 00 Integument other wound Integument Resolve 2016-10-25 Evi present d 10-25 14:15:00 Hai 14:15: [id number] 00 Nutrition nutritional Nutrition Resolve 2016-11-07 Evi restriction d 10-25 12:20:00 Hai s 14:15: [id number] 00 Neuro anxiety Neuro/Emot Resolve 2016-11-07 Evi present ion d 10-25 12:20:00 Hai 14:15: [id number] 00 Medication oral med Meds Resolve 2016-12-05 Evi assistance d 10-25 17:00:00 Hai required 14:15: [id number] 00 Medication potential Meds Resolve 2016-12-05 Evi clinically d 11-07 17:00:00 Hai significant 12:20: [id number] medication 00 issue Respiratory dyspnea Respirator Resolve 2016-11-21 Evi present y d 11-14 13:30:00 Hai 14:00: [id number] 00 Respiratory oxygen Respirator Unknown Evi treatments y 11-21 Hai in home 13:30: [id number] 00 Respiratory lung sounds Respirator Resolve 2018-10-09 Evi deficit y d 11-21 12:40:00 Hai 13:30: [id number] 00 Respiratory smoker Respirator Resolve 2016-11-21 Evi y d 11-21 13:30:00 Hai 13:30: [id number] 00 Respiratory nebulizer Respirator Unknown Evi treatment y 11-21 Hai in home 13:30: [id number] 00 Neuro anxiety Neuro/Emot Resolve 2016-12-25 Evi present ion d 11-21 13:30:00 Hai 13:30: [id number] 00 Respiratory oxygen Respirator Resolve 2018-09-18 Evi treatments y d 12-05 13:30:00 Hai in home 17:00: [id number] 00 Respiratory smoker Respirator Resolve 2016-12-05 Evi y d 12-05 17:00:00 Hai 17:00: [id number] 00 Respiratory nebulizer Respirator Resolve 2018-09-18 Evi treatment y d 12-05 13:30:00 Hai in home 17:00: [id number] 00 Endo/Hugo knowledge/s Endo/Hugo Resolve 2016-12-19 Evi kill d 12-05 13:00:00 Hai deficit: pt 17:00: [id number] 00 Medication knowledge/s Meds Resolve 2016-12-25 Evi kill d 12-19 13:30:00 Hai deficit: pt 13:00: [id number] 00 Respiratory dyspnea Respirator Resolve 2017-02-27 Evi present y d 12-25 12:30:00 Hai 13:30: [id number] 00 Integument other wound Integument Resolve 2017-01-02 Evi present d 12-25 11:50:00 Hai 13:30: [id number] 00 Medication knowledge/s Meds Resolve 2016-12-25 Evi kill d 12-25 13:30:00 Hai deficit: pt 13:30: [id number] 00 Respiratory smoker Respirator Resolve 2017-01-16 Evi y d 01-16 15:00:00 Hai 15:00: [id number] 00 Respiratory lung sounds Respirator Resolve 2017-02-13 Evi deficit y d 02-13 12:45:00 Hai 12:45: [id number] 00 Respiratory smoker Respirator Resolve 2017-02-13 Evi y d 02-13 12:45:00 Hai 12:45: [id number] 00 Respiratory smoker Respirator Resolve 2017-02-27 Evi y d 02-24 12:30:00 Hai 13:00: [id number] 00 Integument other wound Integument Resolve 2017-02-24 Evi present d 02-24 13:00:00 Hai 13:00: [id number] 00 Nutrition nutritional Nutrition Resolve 2017-04-03 Tammee restriction d - 12:25:00 Eric garcia 13:00: an 00 Integument other wound Integument Resolve 2017-05-01 Evi present d 04-25 12:15:00 Hai 13:00: [id number] 00 Neuro depressive Neuro/Emot Resolve 2017-05-01 Evi feelings ion d 04-25 12:15:00 Hai present 13:00: [id number] 00 Neuro anxiety Neuro/Emot Resolve 2017-05-01 Evi present ion d 04-25 12:15:00 Hai 13:00: [id number] 00 Respiratory lung sounds Respirator Resolve 2016-072017-05-01 Evi deficit y d 0- 12:15:00 Hai 12:15: [id number] 00 Respiratory smoker Respirator Resolve 2016-072017-06-12 Evi y d 1- 11:14:00 Hai 11:14: [id number] 00 Respiratory smoker Respirator Resolve 2016-072017-06-21 Evi y d 08-21 11:15:00 Hai 11:15: [id number] 00 Integument other wound Integument Resolve 2016-072017-06-21 Evi present d 08-21 11:15:00 Hai 11:15: [id number] 00 Respiratory lung sounds Respirator Resolve 2016-072017-06-26 Evi deficit y d 08-26 12:15:00 Hai 12:15: [id number] 00 Respiratory lung sounds Respirator Unknown 2016-07 Evi deficit y 2-11 Hai 12:20: [id number] 00 Respiratory smoker Respirator Resolve 2016-072017-08-03 Evi y d 2-28 11:30:00 Hai 12:10: [id number] 00 Respiratory lung sounds Respirator Resolve 2017-08-03 Evi deficit y d 1- 11:30:00 Hai 11:30: [id number] 00 Respiratory lung sounds Respirator Resolve 2017-08-07 Evi deficit y d 1- 10:20:00 Hai 10:20: [id number] 00 Respiratory smoker Respirator Resolve 2017-08-07 Evi y d 1-08 10:20:00 Hai 10:20: [id number] 00 Respiratory lung sounds Respirator Resolve 2017-2017-08-14 Evi deficit y d 1-15 11:30:00 Hai 11:30: [id number] 00 Respiratory smoker Respirator Resolve 2017-2017-08-14 Evi y d 1-15 11:30:00 Hai 11:30: [id number] 00 Integument other wound Integument Resolve 2017-2017-08-21 Evi present d 1- 10:50:00 Hai 10:50: [id number] 00 Respiratory smoker Respirator Resolve 2017-2017-09-04 Evi y d 1- 12:40:00 Hai 12:30: [id number] 00 Respiratory lung sounds Respirator Resolve 2017-09-11 Evi deficit y d 2-12 13:00:00 Hai 13:00: [id number] 00 Respiratory lung sounds Respirator Resolve 2017-09-20 Evi deficit y d 2-21 11:15:00 Hai 11:15: [id number] 00 Respiratory lung sounds Respirator Resolve 2017-2017-09-27 Evi deficit y d 2-28 11:45:00 Hai 11:45: [id number] 00 Respiratory lung sounds Respirator Resolve 2017-10-18 Evi deficit y d 3-21 11:00:00 Hai 11:00: [id number] 00 Respiratory smoker Respirator Resolve 2017-10-18 Evi y d 3-21 11:00:00 Hai 11:00: [id number] 00 Integument other wound Integument Resolve 2017-10-25 Evi present d 3-21 11:00:00 Hai 11:00: [id number] 00 Respiratory lung sounds Respirator Resolve 2018-10-09 Evi deficit y d 4-10 12:40:00 Hai 14:45: [id number] 00 Respiratory smoker Respirator Resolve 2017-2017-11-15 Evi y d 4-18 11:00:00 Hai 11:00: [id number] 00 Respiratory lung sounds Respirator Resolve 2017-2018-10-09 Evi deficit y d 4-25 12:40:00 Hai 13:40: [id number] 00 Respiratory smoker Respirator Resolve 2017-11-22 Evi y d 11-22 13:40:00 Hai 13:40: [id number] 00 Respiratory smoker Respirator Resolve 2017-12-06 Evi y d 12-06 13:15:00 Hai 13:15: [id number] 00 Respiratory lung sounds Respirator Resolve 2017-12-13 Evi deficit y d 12-13 13:00:00 Hai 13:00: [id number] 00 Respiratory lung sounds Respirator Resolve 2017-12-26 Evi deficit y d 12-20 12:05:00 Hai 13:15: [id number] 00 Integument other wound Integument Resolve 2017-12-26 Evi present d 12-20 12:05:00 Hai 13:15: [id number] 00 Respiratory lung sounds Respirator Resolve 2018-01-03 Evi deficit y d 06 12:38:00 Hai 12:38: [id number] 00 Respiratory lung sounds Respirator Resolve 2018-10-09 Evi deficit y d 6-13 12:40:00 Hai 15:00: [id number] 00 Respiratory smoker Respirator Resolve 2018-01-10 Evi y d 6-13 15:00:00 Hai 15:00: [id number] 00 Respiratory lung sounds Respirator Resolve 2018-01-24 Evi deficit y d 6- 13:10:00 Hai 13:10: [id number] 00 Nutrition nutritional Nutrition Resolve 2019-08-13 Evi restriction d 6 10:50:00 Hai s 13:10: [id number] 00 Safety sanitation Safety Resolve 2018-06-05 Evi hazards d 6- 10:35:00 Hai present 13:10: [id number] 00 Safety fall risk Safety Resolve 2018-02-19 Evi factor d 6 14:02:00 Hai present 13:10: [id number] 00 Safety risk for Safety Resolve 2018-10-30 Evi hospitaliza d 01-24 13:06:00 Hai tion 13:10: [id number] 00 Safety structural Safety Resolve 2018-02-19 Evi barriers d 01-24 14:02:00 Hai present 13:10: [id number] 00 Safety safety Safety Resolve 2018-02-19 Evi hazards d 01-24 14:02:00 Hai present 13:10: [id number] 00 Medication oral med Meds Active Evi assistance 01-24 Hai required 13:10: [id number] 00 Medication injectable Meds Active Evi med 01-24 Hai assistance 13:10: [id number] required 00 Respiratory lung sounds Respirator Resolve 2018-10-09 Evi deficit y d 01-29 12:40:00 Hai 13:45: [id number] 00 Respiratory smoker Respirator Resolve 2018-02-07 Evi y d 01-29 13:00:00 Hai 13:45: [id number] 00 Respiratory smoker Respirator Resolve 2018-03-01 Evi y d 02-19 11:42:00 Hai 14:02: [id number] 00 Integument other wound Integument Resolve 2018-03-21 Evi present d 02-19 15:30:00 Hai 14:02: [id number] 00 Respiratory smoker Respirator Resolve 2018-03-28 Evi y d 03-28 11:36:00 Hai 11:36: [id number] 00 Respiratory smoker Respirator Resolve 2018-04-03 Evi y d 04-03 14:00:00 Hai 14:00: [id number] 00 Respiratory smoker Respirator Resolve 2018-04-10 Evi y d 04-10 14:40:00 Hai 14:40: [id number] 00 Integument other wound Integument Resolve 2018-04-24 Evi present d 04-18 10:16:00 Hai 11:00: [id number] 00 Respiratory smoker Respirator Resolve 2017-072018-05-16 Evi y d 0 14:20:00 Hai 10:50: [id number] 00 Respiratory smoker Respirator Resolve 2017-072018-05-29 Evi y d 11:30:00 Hai 11:30: [id number] 00 Respiratory smoker Respirator Resolve 2017-072018-06-05 Evi y d 08-05 10:35:00 Hai 10:35: [id number] 00 Safety safety Safety Resolve 2017-072018-06-05 Evi hazards d 08-05 10:35:00 Hai present 10:35: [id number] 00 Integument other wound Integument Resolve 2017-072018-06-26 Evi present d 08-19 15:15:00 Hai 11:12: [id number] 00 Respiratory smoker Respirator Resolve 2017-072018-06-26 Evi y d 08-26 15:15:00 Hai 15:15: [id number] 00 Respiratory smoker Respirator Resolve 2017-072018-07-03 Evi y d 09-03 11:13:00 Hai 11:13: [id number] 00 Respiratory smoker Respirator Resolve 2017-072018-07-17 Evi y d 09-10 11:38:00 Hai 11:20: [id number] 00 Respiratory smoker Respirator Resolve 2017-072018-07-23 Evi y d 09-23 10:00:00 Hai 10:00: [id number] 00 Integument other wound Integument Resolve 2018-08-14 Evi present d 08-14 15:44:00 Hai 15:44: [id number] 00 Pain frequent Pain Mgmt Resolve 2018-08-28 Evi pain d 08-25 12:45:00 Hai 09:33: [id number] Pain severe pain Pain Mgmt Resolve 2018-08-28 Evi d 08-25 12:45:00 Hai 09:33: [id number] 56 Integument other wound Integument Resolve 2018-08-28 Evi present d 08-25 12:45:00 Hai 09:33: [id number] 56 Respiratory smoker Respirator Resolve 2018-08-28 Evi y d 08-28 12:45:00 Hai 12:45: [id number] 00 Respiratory smoker Respirator Resolve 2018-09-04 Evi y d 09-04 11:30:00 Hai 11:30: [id number] 00 Respiratory smoker Respirator Resolve 2018-09-18 Evi y d 09-10 13:30:00 Hai 16:40: [id number] 00 Pain severe pain Pain Mgmt Resolve 2018-09-25 Evi d 2-19 10:30:00 Hai 13:30: [id number] 00 Neuro anxiety Neuro/Emot Unknown Evi present ion 09-18 Hai 13:30: [id number] 00 Respiratory oxygen Respirator Resolve 2018-10-16 Evi treatments y d 3-05 11:45:00 Hai in home 10:45: [id number] 00 Respiratory smoker Respirator Resolve 2018-10-09 Evi y d 3-05 12:40:00 Hai 10:45: [id number] 00 Respiratory nebulizer Respirator Resolve 2018-10-16 Evi treatment y d - 11:45:00 Hai in home 10:45: [id number] 00 Respiratory lung sounds Respirator Resolve 2018-10-16 Evi deficit y d 3 11:45:00 Hai 11:45: [id number] 00 Respiratory smoker Respirator Resolve 2018-10-16 Evi y d 3 11:45:00 Hai 11:45: [id number] 00 Integument other wound Integument Resolve 2018-10-23 Evi present d 10-16 11:20:00 Hai 11:45: [id number] 00 Respiratory nebulizer Respirator Resolve 2018-10-23 Evi treatment y d 10-23 11:20:00 Hai in home 11:20: [id number] 00 Safety safety Safety Resolve 2018-10-23 Evi hazards d 10-23 11:20:00 Hai present 11:20: [id number] 00 Respiratory lung sounds Respirator Unknown Evi deficit y 10-30 Hai 13:06: [id number] 00 Respiratory oxygen Respirator Resolve 2018-11-20 Evi treatments y d 11-06 10:35:00 Hai in home 11:31: [id number] 00 Respiratory smoker Respirator Resolve 2018-2018-11-06 Evi y d 11-06 11:31:00 Hai 11:31: [id number] 00 Respiratory nebulizer Respirator Resolve 2018-11-20 Evi treatment y d 11-06 10:35:00 Hai in home 11:31: [id number] 00 Safety risk for Safety Resolve 2018-11-12 Evi hospitaliza d 11-06 10:00:00 Hai tion 11:31: [id number] 00 Respiratory smoker Respirator Resolve 2018-11-20 Evi y d 11-12 10:35:00 Hai 10:00: [id number] 00 Respiratory lung sounds Respirator Resolve 2018-11-20 Evi deficit y d 11-20 10:35:00 Hai 10:35: [id number] 00 Safety risk for Safety Resolve 2018-11-27 Evi hospitaliza d 11-20 11:00:00 Hai tion 10:35: [id number] 00 Pain severe pain Pain Mgmt Resolve 2018-12-04 Evi d 11-27 11:35:00 Hai 11:00: [id number] 00 Respiratory oxygen Respirator Resolve 2018-12-12 Evi treatments y d 11-27 09:08:00 Hai in home 11:00: [id number] 00 Respiratory lung sounds Respirator Resolve 2018-12-04 Evi deficit y d 11-27 11:35:00 Hai 11:00: [id number] 00 Respiratory nebulizer Respirator Resolve 2018-12-12 Evi treatment y d 11-27 09:08:00 Hai in home 11:00: [id number] 00 Respiratory smoker Respirator Resolve 2018-12-04 Evi y d 12-04 11:35:00 Hai 11:35: [id number] 00 Safety risk for Safety Resolve 2018-12-12 Evi hospitaliza d 12-04 09:08:00 Hai tion 11:35: [id number] 00 Cardio hypertensio Cardiovasc Resolve 2018-12-18 Evi n ular d 12-12 14:00:00 Hai 09:08: [id number] 00 Respiratory lung sounds Respirator Resolve 2018-12-12 Evi deficit y d 12-12 09:08:00 Hai 09:08: [id number] 00 Respiratory smoker Respirator Resolve 2018-12-12 Evi y d 5-15 09:08:00 Hai 09:08: [id number] 00 Integument other wound Integument Resolve 2018-12-18 Evi present d 5-15 14:00:00 Hai 09:08: [id number] 00 Safety risk for Safety Resolve 2019-01-01 Evi hospitaliza d 12-18 13:20:00 Hai tion 14:00: [id number] 00 Cardio hypertensio Cardiovasc Resolve 2018-2019-01-01 Evi n ular d 12-25 13:20:00 Hai 10:30: [id number] 00 Respiratory oxygen Respirator Resolve 2018-2019-01-08 Evi treatments y d 12-25 11:00:00 Hai in home 10:30: [id number] 00 Respiratory lung sounds Respirator Resolve 2018-2019-01-01 Evi deficit y d 12-25 13:20:00 Hai 10:30: [id number] 00 Respiratory nebulizer Respirator Resolve 2019-01-08 Evi treatment y d 12-25 11:00:00 Hai in home 10:30: [id number] 00 Cardio hypertensio Cardiovasc Resolve 2019-01-15 Evi n ular d - 12:05:00 Hai 11:00: [id number] 00 Respiratory smoker Respirator Resolve 2019-01-08 Evi y d 6- 11:00:00 Hai 11:00: [id number] 00 Respiratory lung sounds Respirator Resolve 2018-2019-01-08 Evi deficit y d 6- 11:00:00 Hai 11:00: [id number] 00 Safety risk for Safety Resolve 2019-01-15 Evi hospitaliza d - 12:05:00 Hai tion 11:00: [id number] 00 Respiratory lung sounds Respirator Unknown Evi deficit y 6 Hai 12:05: [id number] 00 Respiratory nebulizer Respirator Resolve 2018-2019-01-22 Evi treatment y d 6- 11:45:00 Hai in home 12:05: [id number] 00 Respiratory oxygen Respirator Resolve 2018-2019-01-22 Evi treatments y d 6 11:45:00 Hai in home 11:45: [id number] 00 Respiratory smoker Respirator Resolve 2019-01-22 Evi y d 6 11:45:00 Hai 11:45: [id number] 00 Respiratory lung sounds Respirator Resolve 2018-2019-02-05 Evi deficit y d 01-29 11:30:00 Hai 11:40: [id number] 00 Respiratory smoker Respirator Resolve 2019-02-05 Evi y d 01-29 11:30:00 Hai 11:40: [id number] 00 Respiratory nebulizer Respirator Resolve 2019-02-05 Evi treatment y d 01-29 11:30:00 Hai in home 11:40: [id number] 00 Pain severe pain Pain Mgmt Resolve 2019-02-12 Evi d 02-08 13:30:00 Hai 16:30: [id number] 00 Respiratory oxygen Respirator Resolve 2019-02-19 Evi treatments y d 02-12 14:00:00 Hai in home 13:30: [id number] 00 Respiratory nebulizer Respirator Resolve 2019-02-19 Evi treatment y d 02-12 14:00:00 Hai in home 13:30: [id number] 00 Integument other wound Integument Resolve 2019-02-12 Evi present d 02-12 13:30:00 Hai 13:30: [id number] 00 Safety fall risk Safety Resolve 2019-02-12 Evi factor d 02-12 13:30:00 Hai present 13:30: [id number] Safety risk for Safety Resolve 2019-07-02 Evi hospitaliza d 02-12 11:45:00 Hai tion 13:30: [id number] 00 Respiratory smoker Respirator Resolve 2019-02-19 Evi y d 02-19 14:00:00 Hai 14:00: [id number] 00 Integument knowledge/s Integument Resolve 2019-02-27 Evi kill d 02-19 11:00:00 Hai deficit: pt 14:00: [id number] 00 Respiratory nebulizer Respirator Unknown Evi treatment y 7-31 Hai in home 11:00: [id number] 00 Respiratory smoker Respirator Resolve 2019-03-05 Evi y d 8 13:00:00 Hai 13:00: [id number] 00 Respiratory lung sounds Respirator Resolve 2019-04-09 Evi deficit y d 8 14:30:00 Hai 13:00: [id number] 00 Endo/Hugo glucose Endo/Hugo Resolve 2019-03-19 Evi tolerance d 03-05 13:30:00 Hai problem 13:00: [id number] 00 Endo/Hugo knowledge/s Endo/Hugo Resolve 2019-03-19 Evi kill d 03-05 13:30:00 Hai deficit 13:00: [id number] hypo/hyperg 00 lycemia: pt Integument other wound Integument Resolve 2019-03-05 Evi present d 03-05 13:00:00 Hai 13:00: [id number] 00 Respiratory oxygen Respirator Resolve 2019-03-26 Evi treatments y d 8-13 16:55:00 Hai in home 13:00: [id number] 00 Respiratory nebulizer Respirator Resolve 2019-03-26 Evi treatment y d 8-13 16:55:00 Hai in home 13:00: [id number] 00 Respiratory oxygen Respirator Resolve 2019-04-09 Evi treatments y d 903 14:30:00 Hai in home 12:15: [id number] 00 Respiratory nebulizer Respirator Resolve 2019-04-09 Evi treatment y d 9 14:30:00 Hai in home 12:15: [id number] 00 Endo/Hugo knowledge/s Endo/Hugo Resolve 2019-06-25 Evi kill d 04-02 12:00:00 Hai deficit: pt 12:15: [id number] 00 Endo/Hugo knowledge/s Endo/Hugo Resolve 2019-06-25 Evi kill d 04-02 12:00:00 Hai deficit 12:15: [id number] hypo/hyperg 00 lycemia: pt Respiratory smoker Respirator Resolve 2019-04-09 Evi y d 04-09 14:30:00 Hai 14:30: [id number] 00 Endo/Hugo glucose Endo/Hugo Resolve 2019-04-09 Evi tolerance d 9-10 14:30:00 Ahi problem 14:30: [id number] 00 Respiratory oxygen Respirator Resolve 2019-04-23 Evi treatments y d 9-16 14:15:00 Hai in home 14:00: [id number] 00 Respiratory smoker Respirator Resolve 2019-04-23 Evi y d 9-16 14:15:00 Hai 14:00: [id number] 00 Respiratory nebulizer Respirator Resolve 2019-04-23 Evi treatment y d 9-16 14:15:00 Hai in home 14:00: [id number] 00 Endo/Hugo anti-coagul Endo/Hugo Resolve 2019-04-23 Evi ation d 9- 14:15:00 Hai therapy 14:00: [id number] 00 Endo/Hugo glucose Endo/Hugo Resolve 2019-04-23 Evi tolerance d 24 14:15:00 Hai problem 14:15: [id number] 00 Respiratory lung sounds Respirator Resolve 2018-072019-05-07 Evi deficit y d 0-01 15:20:00 Hai 11:06: [id number] 00 Respiratory smoker Respirator Resolve 2018-072019-05-07 Evi y d 0-01 15:20:00 Hai 11:06: [id number] 00 Respiratory oxygen Respirator Resolve 2018-072019-05-15 Evi treatments y d 0-08 10:00:00 Hai in home 15:20: [id number] 00 Respiratory nebulizer Respirator Resolve 2018-072019-05-15 Evi treatment y d 0-08 10:00:00 Hai in home 15:20: [id number] 00 Respiratory lung sounds Respirator Resolve 2018-072019-05-15 Evi deficit y d 0-16 10:00:00 Hai 10:00: [id number] 00 Respiratory lung sounds Respirator Resolve 2018-072019-05-28 Evi deficit y d 0-23 13:15:00 Hai 09:30: [id number] 00 Respiratory oxygen Respirator Resolve 2018-072019-08-13 Evi treatments y d 0-29 10:50:00 Hai in home 13:15: [id number] 00 Respiratory nebulizer Respirator Resolve 2018-072019-08-13 Evi treatment y d 0-29 10:50:00 Hai in home 13:15: [id number] 00 Respiratory smoker Respirator Resolve 2018-072019-05-28 Evi y d 0-29 13:15:00 Hai 13:15: [id number] 00 Respiratory lung sounds Respirator Resolve 2018-072019-06-04 Evi deficit y d 1-05 12:00:00 Hai 12:00: [id number] 00 Respiratory lung sounds Respirator Resolve 2018-072019-06-25 Evi deficit y d 1-11 12:00:00 Hai 11:00: [id number] 00 Respiratory smoker Respirator Resolve 2018-072019-06-18 Evi y d 1-11 12:45:00 Hai 11:00: [id number] 00 Integument other wound Integument Resolve 2018-072019-06-18 Evi present d 1-11 12:45:00 Hai 11:00: [id number] 00 Safety fall risk Safety Resolve 2018-072019-06-25 Evi factor d 1-11 12:00:00 Hai present 11:00: [id number] 00 Respiratory smoker Respirator Resolve 2018-072019-06-25 Evi y d 1- 12:00:00 Hai 12:00: [id number] 00 Neuro anxiety Neuro/Emot Active 2018-07 Evi present ion - Hai 12:00: [id number] 00 Neuro memory Neuro/Emot Active 2018-07 Evi deficit ion - Hai needing 12:00: [id number] 00 Respiratory smoker Respirator Resolve 2018-072019-07-30 Evi y d 2-03 11:00:00 Hai 11:45: [id number] 00 Respiratory lung sounds Respirator Resolve 2018-072019-07-30 Evi deficit y d 2-11 11:00:00 Hai 13:05: [id number] 00 Safety risk for Safety Resolve 2018-072019-07-10 Evi hospitaliza d 2-11 13:05:00 Hai tion 13:05: [id number] 00 Safety risk for Safety Resolve 2018-072019-07-23 [facility] - 11:00:00 Hai tion 15:00: [id number] 00 Safety risk for Safety Resolve 2018-072019-07-30 Evi [facility] d 11:00:00 Hai tion 11:00: [id number] 00 Safety risk for Safety Resolve 2019-2019-08-13 Evi [facility] d 08-06 10:50:00 Hai tion 12:30: [id number] 00 Medication potential Meds Active 2019- Evi clinically 08-06 Hai significant 12:30: [id number] medication 00 issue Cardio hypertensio Cardiovasc Resolve 2019-0 2019-08-27 Evi n ular d 08-13 11:10:00 Hai 10:50: [id number] 00 Respiratory knowledge/s Respirator Resolve 2019-0 2019-08-13 Evi kill y d 08-13 10:50:00 Hai deficit: pt 10:50: [id number] 00 Respiratory lung sounds Respirator Resolve 0 2019-08-13 Evi deficit y d 08-13 10:50:00 Hai 10:50: [id number] 00 Respiratory smoker Respirator Resolve 2019-0 2019-08-13 Evi y d 08-13 10:50:00 Hai 10:50: [id number] 00 Integument other wound Integument Active 2019- Vei present 08-13 Hai 10:50: [id number] 00 Neuro depressive Neuro/Emot Active Evi feelings ion -14 Hai present 10:50: [id number] 00 Medication knowledge/s Meds Active Evi kill 08-13 Hai deficit: pt 10:50: [id number] 00 Respiratory oxygen Respirator Active Evi treatments y 1-21 Hai in home 13:20: [id number] 00 Respiratory knowledge/s Respirator Active 2019- Evi kill y -21 Hai deficit: pt 13:20: [id number] 00 Respiratory lung sounds Respirator Active Evi deficit y -21 Hai 13:20: [id number] 00 Respiratory smoker Respirator Active 2019- Evi y - Hai 13:20: [id number] 00 Respiratory nebulizer Respirator Active Evi treatment y 1-21 Hai in home 13:20: [id number] 00 Endo/Hugo glucose Endo/Hugo Active Evi tolerance 1-21 Hai problem 13:20: [id number] 00 Endo/Hugo knowledge/s Endo/Hugo Active Evi kill 1-21 Hai deficit: pt 13:20: [id number] 00 Endo/Hugo knowledge/s Endo/Hugo Active Evi kill - Hai deficit 13:20: [id number] hypo/hyperg 00 lycemia: pt Neuro impaired Neuro/Emot Active Evi decision-ma ion - Hai zainab 11:10: [id number] 00 Allergies, Adverse Reactions, Alerts Allergy Allergy [...] liter Unknown permeable permeable 09-04- ,Leroy lens lens maker mandrel cleaner liquid liquid FLUoxetine FLUoxetine No Darlow [...]
--- OUTSIDE RECORDS SUMMARY | 2019-09-17 05:41 | XMS REPORT ---
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 hyperglycem hyperglycem ia ia Chronic Chronic Diagnosis Active Evi obstructive obstructive 2- Hai pulmonary pulmonary [id number] disease, disease, unspecified unspecified Essential Essential Diagnosis Active Evi (primary) (primary) 2- Hai hypertensio hypertensio [id number] n n Other Other Diagnosis Active Evi chronic chronic 2-05 Hai pain pain [id number] 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, disorder, 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, recurrent, unspecified unspecified Gastro-esop Gastro-esop Diagnosis Active Evi hageal hageal 2-05 Hai reflux reflux [id number] disease disease without without esophagitis esophagitis 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 [id number] Low back Low back Diagnosis Active Evi pain pain Hai [id number] Hyperlipide Hyperlipide Diagnosis Active Evi hank, hank, Hai unspecified unspecified [id number] Hypothyroid Hypothyroid Diagnosis Active Evi ism, ism, Hai unspecified unspecified [id number] Respiratory treatments Respirator Resolve 2016-10-17 [place] ordered y d 2- 12:30:00 Son [id number] Pain frequent Pain Mgmt Resolve 2018-08-28 [place] pain d 2- 12:45:00 Son 13:13: [id number] 00 Pain knowledge/s Pain Mgmt Resolve 2015-09-09 [place] kill d 2 10:40:00 Son deficit: pt 13:13: [id number] 00 Pain severe pain Pain Mgmt Resolve 29 [place] d 2-05 12:45:00 Son 13:13: [id number] 00 Respiratory dyspnea Respirator Resolve 2016-10-17 [place] present y d 2- 12:30:00 Son 13:13: [id number] 00 Respiratory oxygen Respirator Resolve 2016-10-17 [place] treatments y d 2- 12:30:00 Son in home 13:13: [id number] 00 Respiratory knowledge/s Respirator Resolve 2015-09-16 [place] kill y d 2- 12:00:00 Son deficit: pt 13:13: [id number] 00 Respiratory lung sounds Respirator Resolve 2016-06-29 [place] deficit y d 2 13:03:00 Son 13:13: [id number] 00 Endo/Hugo knowledge/s Endo/Hugo Resolve 2015-09-16 [place] kill d 2- 12:00:00 Son deficit: pt 13:13: [id number] 00 Endo/Hugo diabetic Endo/Hugo Resolve 2016-06-29 [place] foot care d 2- 13:03:00 Son 13:13: [id number] 00 Nutrition knowledge/s Nutrition Resolve 2015-09-04 [place] kill d 2 13:13:00 Son deficit: pt 13:13: [id number] 00 Neuro anxiety Neuro/Emot Resolve 2016-08-02 [place] present ion d 2- 10:30:00 Son 13:13: [id number] 00 Neuro depressive Neuro/Emot Resolve 2016-08-02 [place] feelings ion d 2- 10:30:00 Son present 13:13: [id number] 00 Neuro knowledge/s Neuro/Emot Resolve 2015-09-16 [place] kill ion d 2- 12:00:00 Son deficit: pt 13:13: [id number] 00 Activity ADL Activity Resolve 2016-04-27 [place] assistance d 2- 11:15:00 Son required 13:13: [id number] 00 Activity knowledge/s Activity Resolve 2016-03-01 [place] kill d 2- 12:00:00 Son deficit: pt 13:13: [id number] 00 Safety fall risk Safety Resolve 2015-09-16 [place] factor d 2-05 12:00:00 Cline present 13:13: [id number] 00 Safety risk for Safety Resolve 2015-09-16 [place] hospitaliza d 2-05 12:00:00 Cline tion 13:13: [id number] 00 Medication oral med Meds Resolve 2016-08-02 [place] assistance d 2-05 10:30:00 Cline required 13:13: [id number] 00 Medication injectable Meds Resolve 2016-08-02 [place] med d 2-05 10:30:00 Cline assistance 13:13: [id number] required 00 Medication knowledge/s Meds Resolve 2016-06-29 [place] kill d 2-05 13:03:00 Son deficit: pt 13:13: [id number] 00 Medication potential Meds Resolve 2016-08-02 [place] clinically d 2- 10:30:00 Son significant 13:13: [id number] medication 00 issue Diagnoses knowledge/s Diagnoses Active Chelsea kill - Cline deficit: pt 13:13: [id number] 00 Pain knowledge/s Pain Mgmt Resolve 2015-09-16 [place] kill d 2- 12:00:00 [place] deficit: pt 12:00: [id number] 00 Safety sanitation Safety Resolve 2016-03-01 Cher[place] hazards d 2-17 12:00:00 Abbe present 12:00: [id number] 00 Safety risk for Safety Resolve 2016-03-01 Cherrise hospitaliza d 2-18 12:00:00 [place] tion 12:15: [id number] 00 Neuro knowledge/s Neuro/Emot Resolve 2016-08-16 [place] kill ion d 2- 12:45:00 [place] deficit: pt 13:29: [id number] Safety structural Safety Resolve 2016-03-01 Cher[place] barriers d 2- 12:00:00 [place] present 13:29: [id number] 57 Respiratory knowledge/s Respirator Resolve 2016-04-27 [place] kill y d 10-27 11:15:00 Son deficit: cg 09:40: [id number] 00 Pain frequent Pain Mgmt Resolve 2018-08-28 [place] pain d 11-03 12:45:00 Son 13:04: [id number] 00 Pain knowledge/s Pain Mgmt Resolve 2016-02-24 [place] kill d 11-03 13:35:00 Son deficit: pt 13:04: [id number] 00 Respiratory knowledge/s Respirator Resolve 2016-04-27 [place] kill y d 11-03 11:15:00 Son deficit: pt 13:04: [id number] 00 Safety fall risk Safety Resolve 2016-03-01 [place] factor d 11-03 12:00:00 Son present 13:04: [id number] 00 Endo/Hugo insulin Endo/Hugo Resolve 2016-10-17 [place] admn d 11-24 12:30:00 Son dependence 10:48: [id number] 00 Safety safety Safety Resolve 2016-03-01 [place] hazards d 12-22 12:00:00 Cline present 09:15: [id number] 00 Elimination constipatio Eliminatio Resolve 2016-03-01 [place] n n d 12-29 12:00:00 Son 13:33: [id number] 00 IV IV present IV Resolve 2016-01-26 [place] d 12-29 11:50:00 Son 13:33: [id number] 00 Integument skin Integument Resolve 2016-04-27 Anna integrity d 01-25 11:15:00 Regeczi risk 11:50: [id number] 00 Nutrition knowledge/s Nutrition Resolve 2016-03-01 [place] kill d 02-26 12:00:00 Abbe deficit: pt 10:00: [id number] 00 Pain frequent Pain Mgmt Resolve 2018-08-28 [place] pain d 03-01 12:45:00 Son 12:00: [id number] 00 Nutrition knowledge/s Nutrition Resolve 2016-04-06 Neida kill d 03-23 14:54:00 [place] deficit: pt 13:30: RN 00 Endo/Hugo insulin Endo/Hugo Resolve 2016-10-17 [place] admn d 04-06 12:30:00 Cline dependence 14:54: [id number] 00 Nutrition changing Nutrition Resolve 2016-05-10 [place] weight/appe d 04-27 11:45:00 Son tite 11:15: [id number] 00 Nutrition knowledge/s Nutrition Resolve 2016-04-27 [place] kill d 04-27 11:15:00 Son deficit: pt 11:15: [id number] 00 Cardio hypertensio Cardiovasc Resolve 2016-09-20 Evi n ular d 08-02 10:00:00 Hai 10:30: [id number] 00 Respiratory lung sounds Respirator Resolve 2016-08-25 Evi deficit y d 08-02 10:30:00 Hai 10:30: [id number] 00 Respiratory CPAP Respirator Resolve 2016-10-17 Evi treatments y d 08-02 12:30:00 Hai in home 10:30: [id number] 00 Respiratory dyspnea Respirator Resolve 2016-10-17 Evi present y d 08-02 12:30:00 Hai 10:30: [id number] 00 Respiratory oxygen Respirator Resolve 2016-10-17 Evi treatments y d 08-02 12:30:00 Hai in home 10:30: [id number] 00 Integument knowledge/s Integument Resolve 2016-08-16 Evi kill d 08-02 12:45:00 Hai deficit: pt 10:30: [id number] 00 Medication knowledge/s Meds Resolve 2016-08-25 Evi kill d 08-02 10:30:00 Hai deficit: pt 10:30: [id number] 00 Neuro anxiety Neuro/Emot Resolve 2016-10-17 Evi present ion d 08-16 12:30:00 Hai 12:45: [id number] 00 Integument knowledge/s Integument Resolve 2016-08-25 Evi kill d 08-25 10:30:00 Hai deficit: pt 10:30: [id number] 00 Nutrition nutritional Nutrition Resolve 2016-08-25 Evi restriction d 08-25 10:30:00 Hai s 10:30: [id number] 00 Neuro knowledge/s Neuro/Emot Resolve 2016-2016-08-25 Evi kill ion d 08-25 10:30:00 Hai deficit: pt 10:30: [id number] 00 Medication oral med Meds Resolve 2016-08-25 Evi assistance d 08-25 10:30:00 Hai required 10:30: [id number] 00 Respiratory oxygen Respirator Unknown Evi treatments y 2-06 Hai in home 14:30: [id number] 00 Integument knowledge/s Integument Resolve 2016-09-05 Evi kill d 09-05 14:30:00 Hai deficit: pt 14:30: [id number] 00 Medication oral med Meds Resolve 2016-10-17 Evi assistance d 09-05 12:30:00 Hai required 14:30: [id number] 00 Medication knowledge/s Meds Resolve 2016-12-05 Evi kill d 09-05 17:00:00 Hai deficit: pt 14:30: [id number] 00 Respiratory lung sounds Respirator Resolve 2016-09-20 Evi deficit y d 2- 10:00:00 Hai 10:00: [id number] 00 Integument knowledge/s Integument Resolve 2016-10-17 Evi kill d 2- 12:30:00 Hai deficit: pt 10:00: [id number] 00 Integument other wound Integument Resolve 2016-10-17 Evi present d 2- 12:30:00 Hai 10:00: [id number] 00 Respiratory lung sounds Respirator Resolve 2018-10-09 Evi deficit y d 3-06 12:40:00 Hai 15:00: [id number] 00 Respiratory CPAP Respirator Unknown Evi treatments y 3-06 Hai in home 15:00: [id number] 00 Respiratory smoker Respirator Resolve 2016-10-17 Evi y d 3-06 12:30:00 Hai 15:00: [id number] 00 Respiratory nebulizer Respirator Unknown Evi treatment y 3-06 Hai in home 15:00: [id number] 00 Respiratory dyspnea Respirator Resolve 2016-11-07 Evi present y d 10-25 12:20:00 Hai 14:15: [id number] 00 Respiratory oxygen Respirator Unknown Evi treatments y 10-25 Hai in home 14:15: [id number] 00 Respiratory smoker Respirator Resolve 2016-11-07 Evi y d 10-25 12:20:00 Hai 14:15: [id number] 00 Integument other wound Integument Resolve 2016-10-25 Evi present d 10-25 14:15:00 Hai 14:15: [id number] 00 Nutrition nutritional Nutrition Resolve 2016-11-07 Evi restriction d 10-25 12:20:00 Hai s 14:15: [id number] 00 Neuro anxiety Neuro/Emot Resolve 2016-11-07 Evi present ion d 10-25 12:20:00 Hai 14:15: [id number] 00 Medication oral med Meds Resolve 2016-12-05 Evi assistance d 10-25 17:00:00 Hai required 14:15: [id number] 00 Medication potential Meds Resolve 2016-12-05 Evi clinically d 11-07 17:00:00 Hai significant 12:20: [id number] medication 00 issue Respiratory dyspnea Respirator Resolve 2016-11-21 Evi present y d 11-14 13:30:00 Hai 14:00: [id number] 00 Respiratory oxygen Respirator Unknown Evi treatments y 11-21 Hai in home 13:30: [id number] 00 Respiratory lung sounds Respirator Resolve 2018-10-09 Evi deficit y d 11-21 12:40:00 Hai 13:30: [id number] 00 Respiratory smoker Respirator Resolve 2016-11-21 Evi y d 11-21 13:30:00 Hai 13:30: [id number] 00 Respiratory nebulizer Respirator Unknown Evi treatment y 11-21 Hai in home 13:30: [id number] 00 Neuro anxiety Neuro/Emot Resolve 2016-12-25 Evi present ion d 11-21 13:30:00 Hai 13:30: [id number] 00 Respiratory oxygen Respirator Resolve 2018-09-18 Evi treatments y d 12-05 13:30:00 Hai in home 17:00: [id number] 00 Respiratory smoker Respirator Resolve 2016-12-05 Evi y d 12-05 17:00:00 Hai 17:00: [id number] 00 Respiratory nebulizer Respirator Resolve 2018-09-18 Evi treatment y d 12-05 13:30:00 Hai in home 17:00: [id number] 00 Endo/Hugo knowledge/s Endo/Hugo Resolve 2016-12-19 Evi kill d 12-05 13:00:00 Hai deficit: pt 17:00: [id number] 00 Medication knowledge/s Meds Resolve 2016-12-25 Evi kill d 12-19 13:30:00 Hai deficit: pt 13:00: [id number] 00 Respiratory dyspnea Respirator Resolve 2017-02-27 Evi present y d 12-25 12:30:00 Hai 13:30: [id number] 00 Integument other wound Integument Resolve 2017-01-02 Evi present d 12-25 11:50:00 Hai 13:30: [id number] 00 Medication knowledge/s Meds Resolve 2016-12-25 Evi kill d 12-25 13:30:00 Hai deficit: pt 13:30: [id number] 00 Respiratory smoker Respirator Resolve 2017-01-16 Evi y d 01-16 15:00:00 Hai 15:00: [id number] 00 Respiratory lung sounds Respirator Resolve 2017-02-13 Evi deficit y d 02-13 12:45:00 Hai 12:45: [id number] 00 Respiratory smoker Respirator Resolve 2017-02-13 Evi y d 02-13 12:45:00 Hai 12:45: [id number] 00 Respiratory smoker Respirator Resolve 2017-02-27 Evi y d 02-24 12:30:00 Hai 13:00: [id number] 00 Integument other wound Integument Resolve 2017-02-24 Evi present d 02-24 13:00:00 Hai 13:00: [id number] 00 Nutrition nutritional Nutrition Resolve 2017-04-03 [place] restriction d - 12:25:00 Eric garcia 13:00: an 00 Integument other wound Integument Resolve 2017-05-01 Evi present d 04-25 12:15:00 Hai 13:00: [id number] 00 Neuro depressive Neuro/Emot Resolve 2017-05-01 Evi feelings ion d 04-25 12:15:00 Hai present 13:00: [id number] 00 Neuro anxiety Neuro/Emot Resolve 2017-05-01 Evi present ion d 04-25 12:15:00 Hai 13:00: [id number] 00 Respiratory lung sounds Respirator Resolve 2016-072017-05-01 Evi deficit y d 0- 12:15:00 Hai 12:15: [id number] 00 Respiratory smoker Respirator Resolve 2016-072017-06-12 Evi y d 1- 11:14:00 Hai 11:14: [id number] 00 Respiratory smoker Respirator Resolve 2016-072017-06-21 Evi y d 08-21 11:15:00 Hai 11:15: [id number] 00 Integument other wound Integument Resolve 2016-072017-06-21 Evi present d 08-21 11:15:00 Hai 11:15: [id number] 00 Respiratory lung sounds Respirator Resolve 2016-072017-06-26 Evi deficit y d 08-26 12:15:00 Hai 12:15: [id number] 00 Respiratory lung sounds Respirator Unknown 2016-07 Evi deficit y 2-11 Hai 12:20: [id number] 00 Respiratory smoker Respirator Resolve 2016-072017-08-03 Evi y d 2-28 11:30:00 Hai 12:10: [id number] 00 Respiratory lung sounds Respirator Resolve 2017-08-03 Evi deficit y d 1- 11:30:00 Hai 11:30: [id number] 00 Respiratory lung sounds Respirator Resolve 2017-08-07 Evi deficit y d 1- 10:20:00 Hai 10:20: [id number] 00 Respiratory smoker Respirator Resolve 2017-08-07 Evi y d 1-08 10:20:00 Hai 10:20: [id number] 00 Respiratory lung sounds Respirator Resolve 2017-2017-08-14 Evi deficit y d 1-15 11:30:00 Hai 11:30: [id number] 00 Respiratory smoker Respirator Resolve 2017-2017-08-14 Evi y d 1-15 11:30:00 Hai 11:30: [id number] 00 Integument other wound Integument Resolve 2017-2017-08-21 Evi present d 1- 10:50:00 Hai 10:50: [id number] 00 Respiratory smoker Respirator Resolve 2017-2017-09-04 Evi y d 1- 12:40:00 Hai 12:30: [id number] 00 Respiratory lung sounds Respirator Resolve 2017-09-11 Evi deficit y d 2-12 13:00:00 Hai 13:00: [id number] 00 Respiratory lung sounds Respirator Resolve 2017-09-20 Evi deficit y d 2-21 11:15:00 Hai 11:15: [id number] 00 Respiratory lung sounds Respirator Resolve 2017-2017-09-27 Evi deficit y d 2-28 11:45:00 Hai 11:45: [id number] 00 Respiratory lung sounds Respirator Resolve 2017-10-18 Evi deficit y d 3-21 11:00:00 Hai 11:00: [id number] 00 Respiratory smoker Respirator Resolve 2017-10-18 Evi y d 3-21 11:00:00 Hai 11:00: [id number] 00 Integument other wound Integument Resolve 2017-10-25 Evi present d 3-21 11:00:00 Hai 11:00: [id number] 00 Respiratory lung sounds Respirator Resolve 2018-10-09 Evi deficit y d 4-10 12:40:00 Hai 14:45: [id number] 00 Respiratory smoker Respirator Resolve 2017-2017-11-15 Evi y d 4-18 11:00:00 Hai 11:00: [id number] 00 Respiratory lung sounds Respirator Resolve 2017-2018-10-09 Evi deficit y d 4-25 12:40:00 Hai 13:40: [id number] 00 Respiratory smoker Respirator Resolve 2017-11-22 Evi y d 11-22 13:40:00 Hai 13:40: [id number] 00 Respiratory smoker Respirator Resolve 2017-12-06 Evi y d 12-06 13:15:00 Hai 13:15: [id number] 00 Respiratory lung sounds Respirator Resolve 2017-12-13 Evi deficit y d 12-13 13:00:00 Hai 13:00: [id number] 00 Respiratory lung sounds Respirator Resolve 2017-12-26 Evi deficit y d 12-20 12:05:00 Hai 13:15: [id number] 00 Integument other wound Integument Resolve 2017-12-26 Evi present d 12-20 12:05:00 Hai 13:15: [id number] 00 Respiratory lung sounds Respirator Resolve 2018-01-03 Evi deficit y d 06 12:38:00 Hai 12:38: [id number] 00 Respiratory lung sounds Respirator Resolve 2018-10-09 Evi deficit y d 6-13 12:40:00 Hai 15:00: [id number] 00 Respiratory smoker Respirator Resolve 2018-01-10 Evi y d 6-13 15:00:00 Hai 15:00: [id number] 00 Respiratory lung sounds Respirator Resolve 2018-01-24 Evi deficit y d 6- 13:10:00 Hai 13:10: [id number] 00 Nutrition nutritional Nutrition Resolve 2019-08-13 Evi restriction d 6 10:50:00 Hai s 13:10: [id number] 00 Safety sanitation Safety Resolve 2018-06-05 Evi hazards d 6- 10:35:00 Hai present 13:10: [id number] 00 Safety fall risk Safety Resolve 2018-02-19 Evi factor d 6 14:02:00 Hia present 13:10: [id number] 00 Safety risk for Safety Resolve 2018-10-30 Evi hospitaliza d 01-24 13:06:00 Hai tion 13:10: [id number] 00 Safety structural Safety Resolve 2018-02-19 Evi barriers d 01-24 14:02:00 Hai present 13:10: [id number] 00 Safety safety Safety Resolve 2018-02-19 Evi hazards d 01-24 14:02:00 Hai present 13:10: [id number] 00 Medication oral med Meds Active Evi assistance 01-24 Hai required 13:10: [id number] 00 Medication injectable Meds Active Evi med 01-24 Hai assistance 13:10: [id number] required 00 Respiratory lung sounds Respirator Resolve 2018-10-09 Evi deficit y d 01-29 12:40:00 Hai 13:45: [id number] 00 Respiratory smoker Respirator Resolve 2018-02-07 Evi y d 01-29 13:00:00 Hai 13:45: [id number] 00 Respiratory smoker Respirator Resolve 2018-03-01 Evi y d 02-19 11:42:00 Hai 14:02: [id number] 00 Integument other wound Integument Resolve 2018-03-21 Evi present d 02-19 15:30:00 Hai 14:02: [id number] 00 Respiratory smoker Respirator Resolve 2018-03-28 Evi y d 03-28 11:36:00 Hai 11:36: [id number] 00 Respiratory smoker Respirator Resolve 2018-04-03 Evi y d 04-03 14:00:00 Hai 14:00: [id number] 00 Respiratory smoker Respirator Resolve 2018-04-10 Evi y d 04-10 14:40:00 Hai 14:40: [id number] 00 Integument other wound Integument Resolve 2018-04-24 Evi present d 04-18 10:16:00 Hai 11:00: [id number] 00 Respiratory smoker Respirator Resolve 2017-072018-05-16 Evi y d 0 14:20:00 Hai 10:50: [id number] 00 Respiratory smoker Respirator Resolve 2017-072018-05-29 Evi y d 11:30:00 Hai 11:30: [id number] 00 Respiratory smoker Respirator Resolve 2017-072018-06-05 Evi y d 08-05 10:35:00 Hai 10:35: [id number] 00 Safety safety Safety Resolve 2017-072018-06-05 Evi hazards d 08-05 10:35:00 Hai present 10:35: [id number] 00 Integument other wound Integument Resolve 2017-072018-06-26 Evi present d 08-19 15:15:00 Hai 11:12: [id number] 00 Respiratory smoker Respirator Resolve 2017-072018-06-26 Evi y d 08-26 15:15:00 Hai 15:15: [id number] 00 Respiratory smoker Respirator Resolve 2017-072018-07-03 Evi y d 09-03 11:13:00 Hai 11:13: [id number] 00 Respiratory smoker Respirator Resolve 2017-072018-07-17 Evi y d 09-10 11:38:00 Hai 11:20: [id number] 00 Respiratory smoker Respirator Resolve 2017-072018-07-23 Evi y d 09-23 10:00:00 Hai 10:00: [id number] 00 Integument other wound Integument Resolve 2018-08-14 Evi present d 08-14 15:44:00 Hai 15:44: [id number] 00 Pain frequent Pain Mgmt Resolve 2018-08-28 Evi pain d 08-25 12:45:00 Hai 09:33: [id number] 56 Pain severe pain Pain Mgmt Resolve 2018-08-28 Evi d 08-25 12:45:00 Hai 09:33: [id number] 56 Integument other wound Integument Resolve 2018-08-28 Evi present d 08-25 12:45:00 Hai 09:33: [id number] 56 Respiratory smoker Respirator Resolve 2018-08-28 Evi y d 08-28 12:45:00 Hai 12:45: [id number] 00 Respiratory smoker Respirator Resolve 2018-09-04 Evi y d 09-04 11:30:00 Hai 11:30: [id number] 00 Respiratory smoker Respirator Resolve 2018-09-18 Evi y d 09-10 13:30:00 Hai 16:40: [id number] 00 Pain severe pain Pain Mgmt Resolve 2018-09-25 Evi d 2-19 10:30:00 Hai 13:30: [id number] 00 Neuro anxiety Neuro/Emot Unknown Evi present ion 09-18 Hai 13:30: [id number] 00 Respiratory oxygen Respirator Resolve 2018-10-16 Evi treatments y d 3-05 11:45:00 Hai in home 10:45: [id number] 00 Respiratory smoker Respirator Resolve 2018-10-09 Evi y d 3-05 12:40:00 Hai 10:45: [id number] 00 Respiratory nebulizer Respirator Resolve 2018-10-16 Evi treatment y d - 11:45:00 Hai in home 10:45: [id number] 00 Respiratory lung sounds Respirator Resolve 2018-10-16 Evi deficit y d 3 11:45:00 Hai 11:45: [id number] 00 Respiratory smoker Respirator Resolve 2018-10-16 Evi y d 3 11:45:00 Hai 11:45: [id number] 00 Integument other wound Integument Resolve 2018-10-23 Evi present d 10-16 11:20:00 Hai 11:45: [id number] 00 Respiratory nebulizer Respirator Resolve 2018-10-23 Evi treatment y d 10-23 11:20:00 Hai in home 11:20: [id number] 00 Safety safety Safety Resolve 2018-10-23 Evi hazards d 10-23 11:20:00 Hai present 11:20: [id number] 00 Respiratory lung sounds Respirator Unknown Evi deficit y 10-30 Hai 13:06: [id number] 00 Respiratory oxygen Respirator Resolve 2018-11-20 Evi treatments y d 11-06 10:35:00 Hai in home 11:31: [id number] 00 Respiratory smoker Respirator Resolve 2018-2018-11-06 Evi y d 11-06 11:31:00 Hai 11:31: [id number] 00 Respiratory nebulizer Respirator Resolve 2018-11-20 Evi treatment y d 11-06 10:35:00 Hai in home 11:31: [id number] 00 Safety risk for Safety Resolve 2018-11-12 Evi hospitaliza d 11-06 10:00:00 Hai tion 11:31: [id number] 00 Respiratory smoker Respirator Resolve 2018-11-20 Evi y d 11-12 10:35:00 Hai 10:00: [id number] 00 Respiratory lung sounds Respirator Resolve 2018-11-20 Evi deficit y d 11-20 10:35:00 Hai 10:35: [id number] 00 Safety risk for Safety Resolve 2018-11-27 Evi hospitaliza d 11-20 11:00:00 Hai tion 10:35: [id number] 00 Pain severe pain Pain Mgmt Resolve 2018-12-04 Evi d 11-27 11:35:00 Hai 11:00: [id number] 00 Respiratory oxygen Respirator Resolve 2018-12-12 Evi treatments y d 11-27 09:08:00 Hai in home 11:00: [id number] 00 Respiratory lung sounds Respirator Resolve 2018-12-04 Evi deficit y d 11-27 11:35:00 Hai 11:00: [id number] 00 Respiratory nebulizer Respirator Resolve 2018-12-12 Evi treatment y d 11-27 09:08:00 Hai in home 11:00: [id number] 00 Respiratory smoker Respirator Resolve 2018-12-04 Evi y d 12-04 11:35:00 Hai 11:35: [id number] 00 Safety risk for Safety Resolve 2018-12-12 Evi hospitaliza d 12-04 09:08:00 Hai tion 11:35: [id number] 00 Cardio hypertensio Cardiovasc Resolve 2018-12-18 Evi n ular d 12-12 14:00:00 Hai 09:08: [id number] 00 Respiratory lung sounds Respirator Resolve 2018-12-12 Evi deficit y d 12-12 09:08:00 Hai 09:08: [id number] 00 Respiratory smoker Respirator Resolve 2018-12-12 Evi y d 5-15 09:08:00 Hai 09:08: [id number] 00 Integument other wound Integument Resolve 2018-12-18 Evi present d 5-15 14:00:00 Hai 09:08: [id number] 00 Safety risk for Safety Resolve 2019-01-01 Evi hospitaliza d 12-18 13:20:00 Hai tion 14:00: [id number] 00 Cardio hypertensio Cardiovasc Resolve 2018-2019-01-01 Evi n ular d 12-25 13:20:00 Hai 10:30: [id number] 00 Respiratory oxygen Respirator Resolve 2018-2019-01-08 Evi treatments y d 12-25 11:00:00 Hai in home 10:30: [id number] 00 Respiratory lung sounds Respirator Resolve 2018-2019-01-01 Evi deficit y d 12-25 13:20:00 Hai 10:30: [id number] 00 Respiratory nebulizer Respirator Resolve 2019-01-08 Evi treatment y d 12-25 11:00:00 Hai in home 10:30: [id number] 00 Cardio hypertensio Cardiovasc Resolve 2019-01-15 Evi n ular d - 12:05:00 Hai 11:00: [id number] 00 Respiratory smoker Respirator Resolve 2019-01-08 Evi y d 6- 11:00:00 Hai 11:00: [id number] 00 Respiratory lung sounds Respirator Resolve 2018-2019-01-08 Evi deficit y d 6- 11:00:00 Hai 11:00: [id number] 00 Safety risk for Safety Resolve 2019-01-15 Evi hospitaliza d - 12:05:00 Hai tion 11:00: [id number] 00 Respiratory lung sounds Respirator Unknown Evi deficit y 6 Hai 12:05: [id number] 00 Respiratory nebulizer Respirator Resolve 2018-2019-01-22 Evi treatment y d 6- 11:45:00 Hai in home 12:05: [id number] 00 Respiratory oxygen Respirator Resolve 2018-2019-01-22 Evi treatments y d 6 11:45:00 Hai in home 11:45: [id number] 00 Respiratory smoker Respirator Resolve 2019-01-22 Evi y d 6 11:45:00 Hai 11:45: [id number] 00 Respiratory lung sounds Respirator Resolve 2018-2019-02-05 Evi deficit y d 01-29 11:30:00 Hai 11:40: [id number] 00 Respiratory smoker Respirator Resolve 2019-02-05 Evi y d 01-29 11:30:00 Hai 11:40: [id number] 00 Respiratory nebulizer Respirator Resolve 2019-02-05 Evi treatment y d 01-29 11:30:00 Hai in home 11:40: [id number] 00 Pain severe pain Pain Mgmt Resolve 2019-02-12 Evi d 02-08 13:30:00 Hai 16:30: [id number] 00 Respiratory oxygen Respirator Resolve 2019-02-19 Evi treatments y d 02-12 14:00:00 Hai in home 13:30: [id number] 00 Respiratory nebulizer Respirator Resolve 2019-02-19 Evi treatment y d 02-12 14:00:00 Hai in home 13:30: [id number] 00 Integument other wound Integument Resolve 2019-02-12 Evi present d 02-12 13:30:00 Hai 13:30: [id number] 00 Safety fall risk Safety Resolve 2019-02-12 Evi factor d 02-12 13:30:00 Hai present 13:30: [id number] 00 Safety risk for Safety Resolve 2019-07-02 Evi hospitaliza d 02-12 11:45:00 Hai tion 13:30: [id number] 00 Respiratory smoker Respirator Resolve 2019-02-19 Evi y d 02-19 14:00:00 Hai 14:00: [id number] Integument knowledge/s Integument Resolve 2019-02-27 Evi kill d 02-19 11:00:00 Hai deficit: pt 14:00: [id number] 00 Respiratory nebulizer Respirator Unknown Evi treatment y 7-31 Hai in home 11:00: [id number] 00 Respiratory smoker Respirator Resolve 2019-03-05 Evi y d 8 13:00:00 Hai 13:00: [id number] 00 Respiratory lung sounds Respirator Resolve 2019-04-09 Evi deficit y d 8 14:30:00 Hai 13:00: [id number] 00 Endo/Hugo glucose Endo/Hugo Resolve 2019-03-19 Evi tolerance d 03-05 13:30:00 Hai problem 13:00: [id number] 00 Endo/Hugo knowledge/s Endo/Hugo Resolve 2019-03-19 Evi kill d 03-05 13:30:00 Hai deficit 13:00: [id number] hypo/hyperg 00 lycemia: pt Integument other wound Integument Resolve 2019-03-05 Evi present d 03-05 13:00:00 Hai 13:00: [id number] 00 Respiratory oxygen Respirator Resolve 2019-03-26 Evi treatments y d 8-13 16:55:00 Hai in home 13:00: [id number] 00 Respiratory nebulizer Respirator Resolve 2019-03-26 Evi treatment y d 8-13 16:55:00 Hai in home 13:00: [id number] 00 Respiratory oxygen Respirator Resolve 2019-04-09 Evi treatments y d 903 14:30:00 Hai in home 12:15: [id number] 00 Respiratory nebulizer Respirator Resolve 2019-04-09 Evi treatment y d 9 14:30:00 Hai in home 12:15: [id number] 00 Endo/Hugo knowledge/s Endo/Hugo Resolve 2019-06-25 Evi kill d 04-02 12:00:00 Hai deficit: pt 12:15: [id number] 00 Endo/Hugo knowledge/s Endo/Hugo Resolve 2019-06-25 Evi kill d 04-02 12:00:00 Hai deficit 12:15: [id number] hypo/hyperg 00 lycemia: pt Respiratory smoker Respirator Resolve 2019-04-09 Evi y d 04-09 14:30:00 Hai 14:30: [id number] 00 Endo/Hugo glucose Endo/Hugo Resolve 2019-04-09 Evi tolerance d 9-10 14:30:00 Hai problem 14:30: [id number] 00 Respiratory oxygen Respirator Resolve 2019-04-23 Evi treatments y d 9-16 14:15:00 Hai in home 14:00: [id number] 00 Respiratory smoker Respirator Resolve 2019-04-23 Evi y d 9-16 14:15:00 Hai 14:00: [id number] 00 Respiratory nebulizer Respirator Resolve 2019-04-23 Evi treatment y d 9-16 14:15:00 Hai in home 14:00: [id number] 00 Endo/Hugo anti-coagul Endo/Hugo Resolve 2019-04-23 Evi ation d 9- 14:15:00 Hai therapy 14:00: [id number] 00 Endo/Hugo glucose Endo/Hugo Resolve 2019-04-23 Evi tolerance d 24 14:15:00 Hai problem 14:15: [id number] 00 Respiratory lung sounds Respirator Resolve 2018-072019-05-07 Evi deficit y d 0-01 15:20:00 Hai 11:06: [id number] 00 Respiratory smoker Respirator Resolve 2018-072019-05-07 Evi y d 0-01 15:20:00 Hai 11:06: [id number] 00 Respiratory oxygen Respirator Resolve 2018-072019-05-15 Evi treatments y d 0-08 10:00:00 Hai in home 15:20: [id number] 00 Respiratory nebulizer Respirator Resolve 2018-072019-05-15 Evi treatment y d 0-08 10:00:00 Hai in home 15:20: [id number] 00 Respiratory lung sounds Respirator Resolve 2018-072019-05-15 Evi deficit y d 0-16 10:00:00 Hai 10:00: [id number] 00 Respiratory lung sounds Respirator Resolve 2018-072019-05-28 Evi deficit y d 0-23 13:15:00 Hai 09:30: [id number] 00 Respiratory oxygen Respirator Resolve 2018-072019-08-13 Evi treatments y d 0-29 10:50:00 Hai in home 13:15: [id number] 00 Respiratory nebulizer Respirator Resolve 2018-072019-08-13 Evi treatment y d 0-29 10:50:00 Hai in home 13:15: [id number] 00 Respiratory smoker Respirator Resolve 2018-072019-05-28 Evi y d 0-29 13:15:00 Hai 13:15: [id number] 00 Respiratory lung sounds Respirator Resolve 2018-072019-06-04 Evi deficit y d 1-05 12:00:00 Hai 12:00: [id number] 00 Respiratory lung sounds Respirator Resolve 2018-072019-06-25 Evi deficit y d 1-11 12:00:00 Hai 11:00: [id number] 00 Respiratory smoker Respirator Resolve 2018-072019-06-18 Evi y d 1-11 12:45:00 Hai 11:00: [id number] 00 Integument other wound Integument Resolve 2018-072019-06-18 Evi present d 1-11 12:45:00 Hai 11:00: [id number] 00 Safety fall risk Safety Resolve 2018-072019-06-25 Evi factor d 1-11 12:00:00 Hai present 11:00: [id number] 00 Respiratory smoker Respirator Resolve 2018-072019-06-25 Evi y d 1- 12:00:00 Hai 12:00: [id number] 00 Neuro anxiety Neuro/Emot Active 2018-07 Evi present ion - Hai 12:00: [id number] 00 Neuro memory Neuro/Emot Active 2018-07 Evi deficit ion - Hai needing 12:00: [id number] 00 Respiratory smoker Respirator Resolve 2018-072019-07-30 Evi y d 2-03 11:00:00 Hai 11:45: [id number] 00 Respiratory lung sounds Respirator Resolve 2018-072019-07-30 Evi deficit y d 2-11 11:00:00 Hai 13:05: [id number] 00 Safety risk for Safety Resolve 2018-072019-07-10 Evi hospitaliza d 2-11 13:05:00 Hai tion 13:05: [id number] 00 Safety risk for Safety Resolve 2018[facility]072019-07-23 [facility] 11:[facility] Hai tion 15:00: [id number] 00 Safety risk for Safety Resolve 2018-072019-07-30 Evi [facility] d 11:00:00 Hai tion 11:00: [id number] 00 Safety risk for Safety Resolve 2019-2019-08-13 Evi [facility] d 08-06 10:50:00 Hai tion 12:30: [id number] 00 Medication potential Meds Active 2019- Evi clinically 08-06 Hai significant 12:30: [id number] medication 00 issue Cardio hypertensio Cardiovasc Resolve 2019-0 2019-08-27 Evi n ular d 08-13 11:10:00 Hai 10:50: [id number] 00 Respiratory knowledge/s Respirator Resolve 2019-0 2019-08-13 Evi kill y d 08-13 10:50:00 Hai deficit: pt 10:50: [id number] 00 Respiratory lung sounds Respirator Resolve 0 2019-08-13 Evi deficit y d 08-13 10:50:00 Hai 10:50: [id number] 00 Respiratory smoker Respirator Resolve 2019-0 2019-08-13 Evi y d 08-13 10:50:00 Hai 10:50: [id number] 00 Integument other wound Integument Active 2019- Evi present 08-13 Hai 10:50: [id number] 00 Neuro depressive Neuro/Emot Active Evi feelings ion -14 Hai present 10:50: [id number] 00 Medication knowledge/s Meds Active Evi kill 08-13 Hai deficit: pt 10:50: [id number] 00 Respiratory oxygen Respirator Active Evi treatments y 1-21 Hai in home 13:20: [id number] 00 Respiratory knowledge/s Respirator Active 2019- Evi kill y -21 Hai deficit: pt 13:20: [id number] 00 Respiratory lung sounds Respirator Active Evi deficit y -21 Hai 13:20: [id number] 00 Respiratory smoker Respirator Active 2019- Evi y - Hai 13:20: [id number] 00 Respiratory nebulizer Respirator Active Evi treatment y 1-21 Hai in home 13:20: [id number] 00 Endo/Hugo glucose Endo/Hugo Active Evi tolerance 1-21 Hai problem 13:20: [id number] 00 Endo/Hugo knowledge/s Endo/Hugo Active Evi kill 1-21 Hai deficit: pt 13:20: [id number] 00 Endo/Hugo knowledge/s Endo/Hugo Active Evi kill - Hai deficit 13:20: [id number] hypo/hyperg 00 lycemia: pt Neuro impaired Neuro/Emot Active Evi decision-ma ion - Hai zainab 11:10: [id number] 00 Allergies, Adverse Reactions, Alerts Allergy Allergy [...] liter Unknown permeable permeable 09-04- ,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
--- OUTSIDE RECORDS SUMMARY | 2019-09-17 05:41 | XMS REPORT ---
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, disease, unspecified unspecified Essential Essential Diagnosis Active Evi (primary) (primary) 2- Hai hypertensio hypertensio [id number] n n Other Other Diagnosis Active Evi chronic chronic 2-05 Hai pain pain [id number] 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, disorder, 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, recurrent, unspecified unspecified Gastro-esop Gastro-esop Diagnosis Active Evi hageal hageal 2-05 Hai reflux reflux [id number] disease disease without without esophagitis esophagitis 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 [id number] Low back Low back Diagnosis Active Evi pain pain Hai [id number] Hyperlipide Hyperlipide Diagnosis Active Vei hank, hank, Hai unspecified unspecified [id number] Hypothyroid Hypothyroid Diagnosis Active Evi ism, ism, Hai unspecified unspecified [id number] Respiratory treatments Respirator Resolve 2016-10-17 Chelsea ordered y d 2- 12:30:00 Son [id number] Pain frequent Pain Mgmt Resolve 2018-08-28 Chelsea pain d 2- 12:45:00 Son 13:13: [id number] 00 Pain knowledge/s Pain Mgmt Resolve 2015-09-09 Chelsea kill d 09-04 10:40:00 Son deficit: pt 13:13: [id number] 00 Pain severe pain Pain Mgmt Resolve 29 Chelsea d 2-05 12:45:00 Son 13:13: [id number] 00 Respiratory dyspnea Respirator Resolve 2016-10-17 Chelsea present y d 2- 12:30:00 Son 13:13: [id number] 00 Respiratory oxygen Respirator Resolve 2016-10-17 Chelsea treatments y d 2- 12:30:00 Son in home 13:13: [id number] 00 Respiratory knowledge/s Respirator Resolve 2015-09-16 Chelsea kill y d 2- 12:00:00 Son deficit: pt 13:13: [id number] 00 Respiratory lung sounds Respirator Resolve 2016-06-29 Chelsea deficit y d 2 13:03:00 Son 13:13: [id number] 00 Endo/Hugo knowledge/s Endo/Hugo Resolve 2015-09-16 Cheslea kill d 2- 12:00:00 Son deficit: pt 13:13: [id number] 00 Endo/Hugo diabetic Endo/Hugo Resolve 2016-06-29 Chelsea foot care d 2- 13:03:00 Son 13:13: [id number] 00 Nutrition knowledge/s Nutrition Resolve 2015-09-04 Chelsea kill d 2 13:13:00 Son deficit: pt 13:13: [id number] 00 Neuro anxiety Neuro/Emot Resolve 2016-08-02 Chelsea present ion d 2- 10:30:00 Son 13:13: [id number] 00 Neuro depressive Neuro/Emot Resolve 2016-08-02 Chelsea feelings ion d 2- 10:30:00 Son present 13:13: [id number] 00 Neuro knowledge/s Neuro/Emot Resolve 2015-09-16 Chelsea kill ion d 2- 12:00:00 Son deficit: pt 13:13: [id number] 00 Activity ADL Activity Resolve 2016-04-27 Chelsea assistance d 2- 11:15:00 Son required 13:13: [id number] 00 Activity knowledge/s Activity Resolve 2016-03-01 Chelsea kill d 2- 12:00:00 Son deficit: pt 13:13: [id number] 00 Safety fall risk Safety Resolve 2015-09-16 Chelsea factor d 2-05 12:00:00 Cline present 13:13: [id number] 00 Safety risk for Safety Resolve 2015-09-16 Chelsea hospitaliza d 2-05 12:00:00 Cline tion 13:13: [id number] 00 Medication oral med Meds Resolve 2016-08-02 Chelsea assistance d 2-05 10:30:00 Cline required 13:13: [id number] 00 Medication injectable Meds Resolve 2016-08-02 Chelsea med d 2-05 10:30:00 Cline assistance 13:13: [id number] required 00 Medication knowledge/s Meds Resolve 2016-06-29 Chelsea kill d 2-05 13:03:00 Son deficit: pt 13:13: [id number] 00 Medication potential Meds Resolve 2016-08-02 Chelsea clinically d 2- 10:30:00 Son significant 13:13: [id number] 00 issue Diagnoses knowledge/s Diagnoses Active Chelsea kill - Cline deficit: pt 13:13: [id number] 00 Pain knowledge/s Pain Mgmt Resolve 2015-09-16 Cherrise kill d 2- 12:00:00 Engelhard deficit: pt 12:00: [id number] 00 Safety sanitation Safety Resolve 2016-03-01 Cherrise hazards d 2-17 12:00:00 Abbe present 12:00: [id number] 00 Safety risk for Safety Resolve 2016-03-01 Cherrise hospitaliza d 2-18 12:00:00 Engelhard tion 12:15: [id number] 00 Neuro knowledge/s Neuro/Emot Resolve 2016-08-16 Cherrise kill ion d 2- 12:45:00 Engelhard deficit: pt 13:29: [id number] Safety structural Safety Resolve 2016-03-01 Cherrise barriers d 2- 12:00:00 Engelhard present 13:29: [id number] 57 Respiratory knowledge/s Respirator Resolve 2016-04-27 Chelsea kill y d 10-27 11:15:00 Son deficit: cg 09:40: [id number] 00 Pain frequent Pain Mgmt Resolve 2018-08-28 Chelsea pain d 11-03 12:45:00 Son 13:04: [id number] 00 Pain knowledge/s Pain Mgmt Resolve 2016-02-24 Chelsea kill d 11-03 13:35:00 Son deficit: pt 13:04: [id number] 00 Respiratory knowledge/s Respirator Resolve 2016-04-27 Chelsea kill y d 11-03 11:15:00 Son deficit: pt 13:04: [id number] 00 Safety fall risk Safety Resolve 2016-03-01 Chelsea factor d 11-03 12:00:00 Son present 13:04: [id number] 00 Endo/Hugo insulin Endo/Hugo Resolve 2016-10-17 Chelsea admn d 11-24 12:30:00 Son dependence 10:48: [id number] 00 Safety safety Safety Resolve 2016-03-01 Chelsea hazards d 12-22 12:00:00 Cline present 09:15: [id number] 00 Elimination constipatio Eliminatio Resolve 2016-03-01 Chelsea n n d 12-29 12:00:00 Son 13:33: [id number] 00 IV IV present IV Resolve 2016-01-26 Chelsea d 12-29 11:50:00 Son 13:33: [id number] 00 Integument skin Integument Resolve 2016-04-27 Anna integrity d 01-25 11:15:00 Regeczi risk 11:50: [id number] 00 Nutrition knowledge/s Nutrition Resolve 2016-03-01 Cherrise kill d 02-26 12:00:00 Abbe deficit: pt 10:00: [id number] 00 Pain frequent Pain Mgmt Resolve 2018-08-28 Chelsea pain d 03-01 12:45:00 Son 12:00: [id number] 00 Nutrition knowledge/s Nutrition Resolve 2016-04-06 Neida kill d 03-23 14:54:00 Malnoske deficit: pt 13:30: RN 00 Endo/Hugo insulin Endo/Hugo Resolve 2016-10-17 Chelsea admn d 04-06 12:30:00 Cline dependence 14:54: [id number] 00 Nutrition changing Nutrition Resolve 2016-05-10 Chelsea weight/appe d 04-27 11:45:00 Son tite 11:15: [id number] 00 Nutrition knowledge/s Nutrition Resolve 2016-04-27 Chelsea kill d 04-27 11:15:00 Son deficit: pt 11:15: [id number] 00 Cardio hypertensio Cardiovasc Resolve 2016-09-20 Evi n ular d 08-02 10:00:00 Hai 10:30: [id number] 00 Respiratory lung sounds Respirator Resolve 2016-08-25 Evi deficit y d 08-02 10:30:00 Hai 10:30: [id number] 00 Respiratory CPAP Respirator Resolve 2016-10-17 Evi treatments y d 08-02 12:30:00 Hai in home 10:30: [id number] 00 Respiratory dyspnea Respirator Resolve 2016-10-17 Evi present y d 08-02 12:30:00 Hai 10:30: [id number] 00 Respiratory oxygen Respirator Resolve 2016-10-17 Evi treatments y d 08-02 12:30:00 Hai in home 10:30: [id number] 00 Integument knowledge/s Integument Resolve 2016-08-16 Evi kill d 08-02 12:45:00 Hai deficit: pt 10:30: [id number] 00 Medication knowledge/s Meds Resolve 2016-08-25 Evi kill d 08-02 10:30:00 Hai deficit: pt 10:30: [id number] 00 Neuro anxiety Neuro/Emot Resolve 2016-10-17 Evi present ion d 08-16 12:30:00 Hai 12:45: [id number] 00 Integument knowledge/s Integument Resolve 2016-08-25 Evi kill d 08-25 10:30:00 Hai deficit: pt 10:30: [id number] 00 Nutrition nutritional Nutrition Resolve 2016-08-25 Evi restriction d 08-25 10:30:00 Hai s 10:30: [id number] 00 Neuro knowledge/s Neuro/Emot Resolve 2016-2016-08-25 Evi kill ion d 08-25 10:30:00 Hai deficit: pt 10:30: [id number] 00 Medication oral med Meds Resolve 2016-08-25 Evi assistance d 08-25 10:30:00 Hai required 10:30: [id number] 00 Respiratory oxygen Respirator Unknown Evi treatments y 2-06 Hai in home 14:30: [id number] 00 Integument knowledge/s Integument Resolve 2016-09-05 Evi kill d 09-05 14:30:00 Hai deficit: pt 14:30: [id number] 00 Medication oral med Meds Resolve 2016-10-17 Evi assistance d 09-05 12:30:00 Hai required 14:30: [id number] 00 Medication knowledge/s Meds Resolve 2016-12-05 Evi kill d 09-05 17:00:00 Hai deficit: pt 14:30: [id number] 00 Respiratory lung sounds Respirator Resolve 2016-09-20 Evi deficit y d 2- 10:00:00 Hai 10:00: [id number] 00 Integument knowledge/s Integument Resolve 2016-10-17 Evi kill d 2- 12:30:00 Hai deficit: pt 10:00: [id number] 00 Integument other wound Integument Resolve 2016-10-17 Evi present d 2- 12:30:00 Hai 10:00: [id number] 00 Respiratory lung sounds Respirator Resolve 2018-10-09 Evi deficit y d 3-06 12:40:00 Hai 15:00: [id number] 00 Respiratory CPAP Respirator Unknown Evi treatments y 3-06 Hai in home 15:00: [id number] 00 Respiratory smoker Respirator Resolve 2016-10-17 Evi y d 3-06 12:30:00 Hai 15:00: [id number] 00 Respiratory nebulizer Respirator Unknown Evi treatment y 3-06 Hai in home 15:00: [id number] 00 Respiratory dyspnea Respirator Resolve 2016-11-07 Evi present y d 10-25 12:20:00 Hai 14:15: [id number] 00 Respiratory oxygen Respirator Unknown Evi treatments y 10-25 Hai in home 14:15: [id number] 00 Respiratory smoker Respirator Resolve 2016-11-07 Evi y d 10-25 12:20:00 Hai 14:15: [id number] 00 Integument other wound Integument Resolve 2016-10-25 Evi present d 10-25 14:15:00 Hai 14:15: [id number] 00 Nutrition nutritional Nutrition Resolve 2016-11-07 Evi restriction d 10-25 12:20:00 Hai s 14:15: [id number] 00 Neuro anxiety Neuro/Emot Resolve 2016-11-07 Evi present ion d 10-25 12:20:00 Hai 14:15: [id number] 00 Medication oral med Meds Resolve 2016-12-05 Evi assistance d 10-25 17:00:00 Hai required 14:15: [id number] 00 Medication potential Meds Resolve 2016-12-05 Eiv clinically d 11-07 17:00:00 Hai significant 12:20: [id number] medication 00 issue Respiratory dyspnea Respirator Resolve 2016-11-21 Evi present y d 11-14 13:30:00 Hai 14:00: [id number] 00 Respiratory oxygen Respirator Unknown Evi treatments y 11-21 Hai in home 13:30: [id number] 00 Respiratory lung sounds Respirator Resolve 2018-10-09 Evi deficit y d 11-21 12:40:00 Hai 13:30: [id number] 00 Respiratory smoker Respirator Resolve 2016-11-21 Evi y d 11-21 13:30:00 Hai 13:30: [id number] 00 Respiratory nebulizer Respirator Unknown Evi treatment y 11-21 Hai in home 13:30: [id number] 00 Neuro anxiety Neuro/Emot Resolve 2016-12-25 Evi present ion d 11-21 13:30:00 Hai 13:30: [id number] 00 Respiratory oxygen Respirator Resolve 2018-09-18 Evi treatments y d 12-05 13:30:00 Hai in home 17:00: [id number] 00 Respiratory smoker Respirator Resolve 2016-12-05 Evi y d 12-05 17:00:00 Hai 17:00: [id number] 00 Respiratory nebulizer Respirator Resolve 2018-09-18 Evi treatment y d 12-05 13:30:00 Hai in home 17:00: [id number] 00 Endo/Hugo knowledge/s Endo/Hugo Resolve 2016-12-19 Evi kill d 12-05 13:00:00 Hai deficit: pt 17:00: [id number] 00 Medication knowledge/s Meds Resolve 2016-12-25 Evi kill d 12-19 13:30:00 Hai deficit: pt 13:00: [id number] 00 Respiratory dyspnea Respirator Resolve 2017-02-27 Evi present y d 12-25 12:30:00 Hai 13:30: [id number] 00 Integument other wound Integument Resolve 2017-01-02 Evi present d 12-25 11:50:00 Hai 13:30: [id number] 00 Medication knowledge/s Meds Resolve 2016-12-25 Evi kill d 12-25 13:30:00 Hai deficit: pt 13:30: [id number] 00 Respiratory smoker Respirator Resolve 2017-01-16 Evi y d 01-16 15:00:00 Hai 15:00: [id number] 00 Respiratory lung sounds Respirator Resolve 2017-02-13 Eiv deficit y d 02-13 12:45:00 Hai 12:45: [id number] 00 Respiratory smoker Respirator Resolve 2017-02-13 Evi y d 02-13 12:45:00 Hai 12:45: [id number] 00 Respiratory smoker Respirator Resolve 2017-02-27 Evi y d 02-24 12:30:00 Hai 13:00: [id number] 00 Integument other wound Integument Resolve 2017-02-24 Evi present d 02-24 13:00:00 Hai 13:00: [id number] 00 Nutrition nutritional Nutrition Resolve 2017-04-03 Tammee restriction d - 12:25:00 Eric garcia 13:00: an 00 Integument other wound Integument Resolve 2017-05-01 Evi present d 04-25 12:15:00 Hai 13:00: [id number] 00 Neuro depressive Neuro/Emot Resolve 2017-05-01 Evi feelings ion d 04-25 12:15:00 Hai present 13:00: [id number] 00 Neuro anxiety Neuro/Emot Resolve 2017-05-01 Evi present ion d 04-25 12:15:00 Hai 13:00: [id number] 00 Respiratory lung sounds Respirator Resolve 2016-072017-05-01 Evi deficit y d 0- 12:15:00 Hai 12:15: [id number] 00 Respiratory smoker Respirator Resolve 2016-072017-06-12 Evi y d 1- 11:14:00 Hai 11:14: [id number] 00 Respiratory smoker Respirator Resolve 2016-072017-06-21 Evi y d 08-21 11:15:00 Hai 11:15: [id number] 00 Integument other wound Integument Resolve 2016-072017-06-21 Evi present d 08-21 11:15:00 Hai 11:15: [id number] 00 Respiratory lung sounds Respirator Resolve 2016-072017-06-26 Evi deficit y d 08-26 12:15:00 Hai 12:15: [id number] 00 Respiratory lung sounds Respirator Unknown 2016-07 Evi deficit y 2-11 Hai 12:20: [id number] 00 Respiratory smoker Respirator Resolve 2016-072017-08-03 Evi y d 2-28 11:30:00 Hai 12:10: [id number] 00 Respiratory lung sounds Respirator Resolve 2017-08-03 Evi deficit y d 1- 11:30:00 Hai 11:30: [id number] 00 Respiratory lung sounds Respirator Resolve 2017-08-07 Evi deficit y d 1- 10:20:00 Hai 10:20: [id number] 00 Respiratory smoker Respirator Resolve 2017-08-07 Evi y d 1-08 10:20:00 Hai 10:20: [id number] 00 Respiratory lung sounds Respirator Resolve 2017-2017-08-14 Evi deficit y d 1-15 11:30:00 Hai 11:30: [id number] 00 Respiratory smoker Respirator Resolve 2017-2017-08-14 Evi y d 1-15 11:30:00 Hai 11:30: [id number] 00 Integument other wound Integument Resolve 2017-2017-08-21 Evi present d 1- 10:50:00 Hai 10:50: [id number] 00 Respiratory smoker Respirator Resolve 2017-2017-09-04 Evi y d 1- 12:40:00 Hai 12:30: [id number] 00 Respiratory lung sounds Respirator Resolve 2017-09-11 Evi deficit y d 2-12 13:00:00 Hai 13:00: [id number] 00 Respiratory lung sounds Respirator Resolve 2017-09-20 Evi deficit y d 2-21 11:15:00 Hai 11:15: [id number] 00 Respiratory lung sounds Respirator Resolve 2017-2017-09-27 Evi deficit y d 2-28 11:45:00 Hai 11:45: [id number] 00 Respiratory lung sounds Respirator Resolve 2017-10-18 Evi deficit y d 3-21 11:00:00 Hai 11:00: [id number] 00 Respiratory smoker Respirator Resolve 2017-10-18 Evi y d 3-21 11:00:00 Hai 11:00: [id number] 00 Integument other wound Integument Resolve 2017-10-25 Evi present d 3-21 11:00:00 Hai 11:00: [id number] 00 Respiratory lung sounds Respirator Resolve 2018-10-09 Evi deficit y d 4-10 12:40:00 Hai 14:45: [id number] 00 Respiratory smoker Respirator Resolve 2017-2017-11-15 Evi y d 4-18 11:00:00 Hai 11:00: [id number] 00 Respiratory lung sounds Respirator Resolve 2017-2018-10-09 Evi deficit y d 4-25 12:40:00 Hai 13:40: [id number] 00 Respiratory smoker Respirator Resolve 2017-11-22 Evi y d 11-22 13:40:00 Hai 13:40: [id number] 00 Respiratory smoker Respirator Resolve 2017-12-06 Evi y d 12-06 13:15:00 Hai 13:15: [id number] 00 Respiratory lung sounds Respirator Resolve 2017-12-13 Evi deficit y d 12-13 13:00:00 Hai 13:00: [id number] 00 Respiratory lung sounds Respirator Resolve 2017-12-26 Evi deficit y d 12-20 12:05:00 Hai 13:15: [id number] 00 Integument other wound Integument Resolve 2017-12-26 Evi present d 12-20 12:05:00 Hai 13:15: [id number] 00 Respiratory lung sounds Respirator Resolve 2018-01-03 Evi deficit y d 06 12:38:00 Hai 12:38: [id number] 00 Respiratory lung sounds Respirator Resolve 2018-10-09 Evi deficit y d 6-13 12:40:00 Hai 15:00: [id number] 00 Respiratory smoker Respirator Resolve 2018-01-10 Evi y d 6-13 15:00:00 Hai 15:00: [id number] 00 Respiratory lung sounds Respirator Resolve 2018-01-24 Evi deficit y d 6- 13:10:00 Hai 13:10: [id number] 00 Nutrition nutritional Nutrition Resolve 2019-08-13 Evi restriction d 6 10:50:00 Hai s 13:10: [id number] 00 Safety sanitation Safety Resolve 2018-06-05 Evi hazards d 6- 10:35:00 Hai present 13:10: [id number] 00 Safety fall risk Safety Resolve 2018-02-19 Evi factor d 6 14:02:00 Hai present 13:10: [id number] 00 Safety risk for Safety Resolve 2018-10-30 Evi hospitaliza d 01-24 13:06:00 Hai tion 13:10: [id number] 00 Safety structural Safety Resolve 2018-02-19 Evi barriers d 01-24 14:02:00 Ahi present 13:10: [id number] 00 Safety safety Safety Resolve 2018-02-19 Evi hazards d 01-24 14:02:00 Hai present 13:10: [id number] 00 Medication oral med Meds Active Evi assistance 01-24 Hai required 13:10: [id number] 00 Medication injectable Meds Active Evi med 01-24 Hai assistance 13:10: [id number] 00 Respiratory lung sounds Respirator Resolve 2018-10-09 Evi deficit y d 01-29 12:40:00 Hai 13:45: [id number] 00 Respiratory smoker Respirator Resolve 2018-02-07 Evi y d 01-29 13:00:00 Hai 13:45: [id number] 00 Respiratory smoker Respirator Resolve 2018-03-01 Evi y d 02-19 11:42:00 Hai 14:02: [id number] 00 Integument other wound Integument Resolve 2018-03-21 Evi present d 02-19 15:30:00 Hai 14:02: [id number] 00 Respiratory smoker Respirator Resolve 2018-03-28 Evi y d 03-28 11:36:00 Hai 11:36: [id number] 00 Respiratory smoker Respirator Resolve 2018-04-03 Evi y d 04-03 14:00:00 Hai 14:00: [id number] 00 Respiratory smoker Respirator Resolve 2018-04-10 Evi y d 04-10 14:40:00 Hai 14:40: [id number] 00 Integument other wound Integument Resolve 2018-04-24 Evi present d 04-18 10:16:00 Hai 11:00: [id number] 00 Respiratory smoker Respirator Resolve 2017-072018-05-16 Evi y d 0 14:20:00 Hai 10:50: [id number] 00 Respiratory smoker Respirator Resolve 2017-072018-05-29 Evi y d 11:30:00 Hai 11:30: [id number] 00 Respiratory smoker Respirator Resolve 2017-072018-06-05 Evi y d 08-05 10:35:00 Hai 10:35: [id number] 00 Safety safety Safety Resolve 2017-072018-06-05 Evi hazards d 08-05 10:35:00 Hai present 10:35: [id number] 00 Integument other wound Integument Resolve 2017-072018-06-26 Evi present d 08-19 15:15:00 Hai 11:12: [id number] 00 Respiratory smoker Respirator Resolve 2017-072018-06-26 Evi y d 08-26 15:15:00 Hai 15:15: [id number] 00 Respiratory smoker Respirator Resolve 2017-072018-07-03 Evi y d 09-03 11:13:00 Hai 11:13: [id number] 00 Respiratory smoker Respirator Resolve 2017-072018-07-17 Evi y d 09-10 11:38:00 Hai 11:20: [id number] 00 Respiratory smoker Respirator Resolve 2017-072018-07-23 Evi y d 09-23 10:00:00 Hai 10:00: [id number] 00 Integument other wound Integument Resolve 2018-08-14 Evi present d 08-14 15:44:00 Hai 15:44: [id number] 00 Pain frequent Pain Mgmt Resolve 2018-08-28 Evi pain d 08-25 12:45:00 Hai 09:33: [id number] 56 Pain severe pain Pain Mgmt Resolve 2018-08-28 Evi d 08-25 12:45:00 Hai 09:33: [id number] 56 Integument other wound Integument Resolve 2018-08-28 Evi present d 08-25 12:45:00 Hai 09:33: [id number] 56 Respiratory smoker Respirator Resolve 2018-08-28 Evi y d 08-28 12:45:00 Hai 12:45: [id number] 00 Respiratory smoker Respirator Resolve 2018-09-04 Evi y d 09-04 11:30:00 Hai 11:30: [id number] 00 Respiratory smoker Respirator Resolve 2018-09-18 Evi y d 09-10 13:30:00 Hai 16:40: [id number] 00 Pain severe pain Pain Mgmt Resolve 2018-09-25 Evi d 2-19 10:30:00 Hai 13:30: [id number] 00 Neuro anxiety Neuro/Emot Unknown Evi present ion 09-18 Hai 13:30: [id number] 00 Respiratory oxygen Respirator Resolve 2018-10-16 Evi treatments y d 3-05 11:45:00 Hai in home 10:45: [id number] 00 Respiratory smoker Respirator Resolve 2018-10-09 Evi y d 3-05 12:40:00 Hai 10:45: [id number] 00 Respiratory nebulizer Respirator Resolve 2018-10-16 Evi treatment y d - 11:45:00 Hai in home 10:45: [id number] 00 Respiratory lung sounds Respirator Resolve 2018-10-16 Evi deficit y d 3 11:45:00 Hai 11:45: [id number] 00 Respiratory smoker Respirator Resolve 2018-10-16 Evi y d 3 11:45:00 Hai 11:45: [id number] 00 Integument other wound Integument Resolve 2018-10-23 Evi present d 10-16 11:20:00 Hai 11:45: [id number] 00 Respiratory nebulizer Respirator Resolve 2018-10-23 Evi treatment y d 10-23 11:20:00 Hai in home 11:20: [id number] 00 Safety safety Safety Resolve 2018-10-23 Evi hazards d 10-23 11:20:00 Hai present 11:20: [id number] 00 Respiratory lung sounds Respirator Unknown Evi deficit y 10-30 Hai 13:06: [id number] 00 Respiratory oxygen Respirator Resolve 2018-11-20 Evi treatments y d 11-06 10:35:00 Hai in home 11:31: [id number] 00 Respiratory smoker Respirator Resolve 2018-2018-11-06 Evi y d 11-06 11:31:00 Hai 11:31: [id number] 00 Respiratory nebulizer Respirator Resolve 2018-11-20 Evi treatment y d 11-06 10:35:00 Hai in home 11:31: [id number] 00 Safety risk for Safety Resolve 2018-11-12 Evi hospitaliza d 11-06 10:00:00 Hai tion 11:31: [id number] 00 Respiratory smoker Respirator Resolve 2018-11-20 Evi y d 11-12 10:35:00 Hai 10:00: [id number] 00 Respiratory lung sounds Respirator Resolve 2018-11-20 Evi deficit y d 11-20 10:35:00 Hai 10:35: [id number] 00 Safety risk for Safety Resolve 2018-11-27 Evi hospitaliza d 11-20 11:00:00 Hia tion 10:35: [id number] 00 Pain severe pain Pain Mgmt Resolve 2018-12-04 Evi d 11-27 11:35:00 Hai 11:00: [id number] 00 Respiratory oxygen Respirator Resolve 2018-12-12 Evi treatments y d 11-27 09:08:00 Hai in home 11:00: [id number] 00 Respiratory lung sounds Respirator Resolve 2018-12-04 Evi deficit y d 11-27 11:35:00 Hai 11:00: [id number] 00 Respiratory nebulizer Respirator Resolve 2018-12-12 Evi treatment y d 11-27 09:08:00 Hai in home 11:00: [id number] 00 Respiratory smoker Respirator Resolve 2018-12-04 Evi y d 12-04 11:35:00 Hai 11:35: [id number] 00 Safety risk for Safety Resolve 2018-12-12 Evi hospitaliza d 12-04 09:08:00 Hai tion 11:35: [id number] 00 Cardio hypertensio Cardiovasc Resolve 2018-12-18 Evi n ular d 12-12 14:00:00 Hai 09:08: [id number] 00 Respiratory lung sounds Respirator Resolve 2018-12-12 Evi deficit y d 12-12 09:08:00 Hai 09:08: [id number] 00 Respiratory smoker Respirator Resolve 2018-12-12 Evi y d 5-15 09:08:00 Hai 09:08: [id number] 00 Integument other wound Integument Resolve 2018-12-18 Evi present d 5-15 14:00:00 Hai 09:08: [id number] 00 Safety risk for Safety Resolve 2019-01-01 Evi hospitaliza d 12-18 13:20:00 Hai tion 14:00: [id number] 00 Cardio hypertensio Cardiovasc Resolve 2018-2019-01-01 Evi n ular d 12-25 13:20:00 Hai 10:30: [id number] 00 Respiratory oxygen Respirator Resolve 2018-2019-01-08 Evi treatments y d 12-25 11:00:00 Hai in home 10:30: [id number] 00 Respiratory lung sounds Respirator Resolve 2018-2019-01-01 Evi deficit y d 12-25 13:20:00 Hai 10:30: [id number] 00 Respiratory nebulizer Respirator Resolve 2019-01-08 Evi treatment y d 12-25 11:00:00 Hai in home 10:30: [id number] 00 Cardio hypertensio Cardiovasc Resolve 2019-01-15 Evi n ular d - 12:05:00 Hai 11:00: [id number] 00 Respiratory smoker Respirator Resolve 2019-01-08 Evi y d 6- 11:00:00 Hai 11:00: [id number] 00 Respiratory lung sounds Respirator Resolve 2018-2019-01-08 Evi deficit y d 6- 11:00:00 Hai 11:00: [id number] 00 Safety risk for Safety Resolve 2019-01-15 Evi hospitaliza d - 12:05:00 Hai tion 11:00: [id number] 00 Respiratory lung sounds Respirator Unknown Evi deficit y 6 Hai 12:05: [id number] 00 Respiratory nebulizer Respirator Resolve 2018-2019-01-22 Evi treatment y d 6- 11:45:00 Hai in home 12:05: [id number] 00 Respiratory oxygen Respirator Resolve 2018-2019-01-22 Evi treatments y d 6 11:45:00 Hai in home 11:45: [id number] 00 Respiratory smoker Respirator Resolve 2019-01-22 Evi y d 6 11:45:00 Hai 11:45: [id number] 00 Respiratory lung sounds Respirator Resolve 2018-2019-02-05 Evi deficit y d 01-29 11:30:00 Hai 11:40: [id number] 00 Respiratory smoker Respirator Resolve 2019-02-05 Evi y d 01-29 11:30:00 Hai 11:40: [id number] 00 Respiratory nebulizer Respirator Resolve 2019-02-05 Evi treatment y d 01-29 11:30:00 Hai in home 11:40: [id number] 00 Pain severe pain Pain Mgmt Resolve 2019-02-12 Evi d 02-08 13:30:00 Hai 16:30: [id number] 00 Respiratory oxygen Respirator Resolve 2019-02-19 Evi treatments y d 02-12 14:00:00 Hai in home 13:30: [id number] 00 Respiratory nebulizer Respirator Resolve 2019-02-19 Evi treatment y d 02-12 14:00:00 Hai in home 13:30: [id number] 00 Integument other wound Integument Resolve 2019-02-12 Evi present d 02-12 13:30:00 Hai 13:30: [id number] 00 Safety fall risk Safety Resolve 2019-02-12 Evi factor d 02-12 13:30:00 Hai present 13:30: [id number] 00 Safety risk for Safety Resolve 2019-07-02 Evi hospitaliza d 02-12 11:45:00 Hai tion 13:30: [id number] 00 Respiratory smoker Respirator Resolve 2019-02-19 Evi y d 02-19 14:00:00 Hai 14:00: [id number] 00 Integument knowledge/s Integument Resolve 2019-02-27 Evi kill d 02-19 11:00:00 Hai deficit: pt 14:00: [id number] 00 Respiratory nebulizer Respirator Unknown Evi treatment y 7-31 Hai in home 11:00: [id number] 00 Respiratory smoker Respirator Resolve 2019-03-05 Evi y d 8 13:00:00 Hai 13:00: [id number] 00 Respiratory lung sounds Respirator Resolve 2019-04-09 Evi deficit y d 8 14:30:00 Hai 13:00: [id number] 00 Endo/Hugo glucose Endo/Hugo Resolve 2019-03-19 Evi tolerance d 03-05 13:30:00 Hai problem 13:00: [id number] 00 Endo/Hugo knowledge/s Endo/Hugo Resolve 2019-03-19 Evi kill d 03-05 13:30:00 Hai deficit 13:00: [id number] hypo/hyperg 00 lycemia: pt Integument other wound Integument Resolve 2019-03-05 Evi present d 03-05 13:00:00 Hai 13:00: [id number] 00 Respiratory oxygen Respirator Resolve 2019-03-26 Evi treatments y d 8-13 16:55:00 Hai in home 13:00: [id number] 00 Respiratory nebulizer Respirator Resolve 2019-03-26 Evi treatment y d 8-13 16:55:00 Hai in home 13:00: [id number] 00 Respiratory oxygen Respirator Resolve 2019-04-09 Evi treatments y d 903 14:30:00 Hai in home 12:15: [id number] 00 Respiratory nebulizer Respirator Resolve 2019-04-09 Evi treatment y d 9 14:30:00 Hai in home 12:15: [id number] 00 Endo/Hugo knowledge/s Endo/Hugo Resolve 2019-06-25 Evi kill d 04-02 12:00:00 Hai deficit: pt 12:15: [id number] 00 Endo/Hugo knowledge/s Endo/Hugo Resolve 2019-06-25 Evi kill d 04-02 12:00:00 Hai deficit 12:15: [id number] hypo/hyperg 00 lycemia: pt Respiratory smoker Respirator Resolve 2019-04-09 Evi y d 04-09 14:30:00 Hai 14:30: [id number] 00 Endo/Hugo glucose Endo/Hugo Resolve 2019-04-09 Evi tolerance d 9-10 14:30:00 Hai problem 14:30: [id number] 00 Respiratory oxygen Respirator Resolve 2019-04-23 Evi treatments y d 9-16 14:15:00 Hai in home 14:00: [id number] 00 Respiratory smoker Respirator Resolve 2019-04-23 Evi y d 9-16 14:15:00 Hai 14:00: [id number] 00 Respiratory nebulizer Respirator Resolve 2019-04-23 Evi treatment y d 9-16 14:15:00 Hai in home 14:00: [id number] 00 Endo/Hugo anti-coagul Endo/Hugo Resolve 2019-04-23 Evi ation d 9- 14:15:00 Hai therapy 14:00: [id number] 00 Endo/Hugo glucose Endo/Hugo Resolve 2019-04-23 Evi tolerance d 24 14:15:00 Hai problem 14:15: [id number] 00 Respiratory lung sounds Respirator Resolve 2018-072019-05-07 Evi deficit y d 0-01 15:20:00 Hai 11:06: [id number] 00 Respiratory smoker Respirator Resolve 2018-072019-05-07 Evi y d 0-01 15:20:00 Hai 11:06: [id number] 00 Respiratory oxygen Respirator Resolve 2018-072019-05-15 Evi treatments y d 0-08 10:00:00 Hai in home 15:20: [id number] 00 Respiratory nebulizer Respirator Resolve 2018-072019-05-15 Evi treatment y d 0-08 10:00:00 Hai in home 15:20: [id number] 00 Respiratory lung sounds Respirator Resolve 2018-072019-05-15 Evi deficit y d 0-16 10:00:00 Hai 10:00: [id number] 00 Respiratory lung sounds Respirator Resolve 2018-072019-05-28 Evi deficit y d 0-23 13:15:00 Hai 09:30: [id number] 00 Respiratory oxygen Respirator Resolve 2018-072019-08-13 Evi treatments y d 0-29 10:50:00 Hai in home 13:15: [id number] 00 Respiratory nebulizer Respirator Resolve 2018-072019-08-13 Evi treatment y d 0-29 10:50:00 Hai in home 13:15: [id number] 00 Respiratory smoker Respirator Resolve 2018-072019-05-28 Evi y d 0-29 13:15:00 Hai 13:15: [id number] 00 Respiratory lung sounds Respirator Resolve 2018-072019-06-04 Evi deficit y d 1-05 12:00:00 Hai 12:00: [id number] 00 Respiratory lung sounds Respirator Resolve 2018-072019-06-25 Evi deficit y d 1-11 12:00:00 Hai 11:00: [id number] 00 Respiratory smoker Respirator Resolve 2018-072019-06-18 Evi y d 1-11 12:45:00 Hai 11:00: [id number] 00 Integument other wound Integument Resolve 2018-072019-06-18 Evi present d 1-11 12:45:00 Hai 11:00: [id number] 00 Safety fall risk Safety Resolve 2018-072019-06-25 Evi factor d 1-11 12:00:00 Hai present 11:00: [id number] 00 Respiratory smoker Respirator Resolve 2018-072019-06-25 Evi y d 1- 12:00:00 Hai 12:00: [id number] 00 Neuro anxiety Neuro/Emot Active 2018-07 Evi present ion - Hai 12:00: [id number] 00 Neuro memory Neuro/Emot Active 2018-07 Evi deficit ion - Hai needing 12:00: [id number] 00 Respiratory smoker Respirator Resolve 2018-072019-07-30 Evi y d 2-03 11:00:00 Hai 11:45: [id number] 00 Respiratory lung sounds Respirator Resolve 2018-072019-07-30 Evi deficit y d 2-11 11:00:00 Hai 13:05: [id number] 00 Safety risk for Safety Resolve 2018-072019-07-10 Evi hospitaliza d 2-11 13:05:00 Hai tion 13:05: [id number] 00 Safety risk for Safety Resolve 2018-072019-07-23 Evi [facility] d 09-16 11:00:00 Hai tion 15:00: [id number] 00 Safety risk for Safety Resolve 2018-072019-07-30 Evi [facility] d 11:00:00 Hai tion 11:00: [id number] 00 Safety risk for Safety Resolve 2019-08-13 Evi [facility] d 08-06 10:50:00 Hai tion 12:30: [id number] 00 Medication potential Meds Active 2019-0 Evi clinically 08-06 Hai significant 12:30: [id number] medication 00 issue Cardio hypertensio Cardiovasc Active 2019- Evi n ular 08-13 Hai 10:50: [id number] 00 Respiratory knowledge/s Respirator Resolve 2019-0 2019-08-13 Evi kill y d 08-13 10:50:00 Hai deficit: pt 10:50: [id number] 00 Respiratory lung sounds Respirator Resolve 2019-0 2019-08-13 Evi deficit y d 08-13 10:50:00 Hai 10:50: [id number] 00 Respiratory smoker Respirator Resolve 2019-0 2019-08-13 Evi y d 08-13 10:50:00 Hai 10:50: [id number] 00 Integument other wound Integument Active 2019- Evi present 08-13 Hai 10:50: [id number] 00 Neuro depressive Neuro/Emot Active Evi feelings ion - Hai present 10:50: [id number] 00 Medication knowledge/s Meds Active 2019-0 Evi kill -14 Hai deficit: pt 10:50: [id number] 00 Respiratory oxygen Respirator Active 2019-0 Evi treatments y 1-21 Hai in home 13:20: [id number] 00 Respiratory knowledge/s Respirator Active 2019-0 Evi kill y 1-21 Hai deficit: pt 13:20: [id number] 00 Respiratory lung sounds Respirator Active 2019-0 Evi deficit y 1-21 Hai 13:20: [id number] 00 Respiratory smoker Respirator Active 2019-0 Evi y 1-21 Hai 13:20: [id number] 00 Respiratory nebulizer Respirator Active 2019-0 Evi treatment y 1-21 Hai in home 13:20: [id number] 00 Endo/Hugo glucose Endo/Hugo Active Evi tolerance 1-21 Hai problem 13:20: [id number] 00 Endo/Hugo knowledge/s Endo/Hugo Active Evi kill 1-21 Hai deficit: pt 13:20: [id number] 00 Endo/Hugo knowledge/s Endo/Hugo Active Evi kill 1-21 Hai deficit 13:20: [id number] hypo/hyperg 00 lycemia: pt Allergies, Adverse Reactions, [...] liter Unknown permeable permeable 09-04 ,[employer]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
--- OUTSIDE RECORDS SUMMARY | 2019-09-17 05:42 | XMS REPORT ---
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 hyperglycem hyperglycem ia ia Chronic Chronic Diagnosis Active Evi obstructive obstructive 2- Hai pulmonary pulmonary [id number] disease, disease, unspecified unspecified Essential Essential Diagnosis Active Evi (primary) (primary) 2- Hai hypertensio hypertensio [id number] n n Other Other Diagnosis Active Evi chronic chronic 2-05 Hai pain pain [id number] 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, disorder, 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, recurrent, unspecified unspecified Gastro-esop Gastro-esop Diagnosis Active Evi hageal hageal 2- Hai reflux reflux [id number] disease disease without without esophagitis esophagitis 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 [id number] Low back Low back Diagnosis Active Evi pain pain Hai [id number] Hyperlipide Hyperlipide Diagnosis Active Evi hank, hank, Hai unspecified unspecified [id number] Hypothyroid Hypothyroid Diagnosis Active Evi ism, ism, Hai unspecified unspecified [id number] Respiratory treatments Respirator Resolve 2016-10-17 Chelsea ordered y d 2- 12:30:00 Son [id number] Pain frequent Pain Mgmt Resolve 2018-08-28 Chelsea pain d 2- 12:45:00 Son 13:13: [id number] Pain knowledge/s Pain Mgmt Resolve 2015-09-09 Chelsea kill d 09-04 10:40:00 Son deficit: pt 13:13: [id number] 00 Pain severe pain Pain Mgmt Resolve 29 Chelsea d 2-05 12:45:00 Son 13:13: [id number] 00 Respiratory dyspnea Respirator Resolve 2016-10-17 Chelsea present y d 2- 12:30:00 Son 13:13: [id number] 00 Respiratory oxygen Respirator Resolve 2016-10-17 Chelsea treatments y d 2- 12:30:00 Son in home 13:13: [id number] 00 Respiratory knowledge/s Respirator Resolve 2015-09-16 Chelsea kill y d 2- 12:00:00 Son deficit: pt 13:13: [id number] 00 Respiratory lung sounds Respirator Resolve 2016-06-29 Chelsea deficit y d 2 13:03:00 Son 13:13: [id number] 00 Endo/Hugo knowledge/s Endo/Hugo Resolve 2015-09-16 Chelsea kill d 2- 12:00:00 Son deficit: pt 13:13: [id number] 00 Endo/Hugo diabetic Endo/Hugo Resolve 2016-06-29 Chelsea foot care d 2- 13:03:00 Son 13:13: [id number] 00 Nutrition knowledge/s Nutrition Resolve 2015-09-04 Chelsea kill d 2 13:13:00 Son deficit: pt 13:13: [id number] 00 Neuro anxiety Neuro/Emot Resolve 2016-08-02 Chelsea present ion d 2- 10:30:00 Son 13:13: [id number] 00 Neuro depressive Neuro/Emot Resolve 2016-08-02 Chelsea feelings ion d 2- 10:30:00 Son present 13:13: [id number] 00 Neuro knowledge/s Neuro/Emot Resolve 2015-09-16 Chelsea kill ion d 2- 12:00:00 Son deficit: pt 13:13: [id number] 00 Activity ADL Activity Resolve 2016-04-27 Chelsea assistance d 2- 11:15:00 Son required 13:13: [id number] 00 Activity knowledge/s Activity Resolve 2016-03-01 Chelsea kill d 2- 12:00:00 Son deficit: pt 13:13: [id number] 00 Safety fall risk Safety Resolve 2015-09-16 Chelsea factor d 2-05 12:00:00 Cline present 13:13: [id number] 00 Safety risk for Safety Resolve 2015-09-16 Chelsea hospitaliza d 2-05 12:00:00 Cline tion 13:13: [id number] 00 Medication oral med Meds Resolve 2016-08-02 Chelsea assistance d 2-05 10:30:00 Cline required 13:13: [id number] 00 Medication injectable Meds Resolve 2016-08-02 Chelsea med d 2-05 10:30:00 Cline assistance 13:13: [id number] 00 Medication knowledge/s Meds Resolve 2016-06-29 Chelsea kill d 2-05 13:03:00 Son deficit: pt 13:13: [id number] 00 Medication potential Meds Resolve 2016-08-02 Chelsea clinically d 2- 10:30:00 Son significant 13:13: [id number] medication 00 issue Diagnoses knowledge/s Diagnoses Active Chelsea kill - Cline deficit: pt 13:13: [id number] 00 Pain knowledge/s Pain Mgmt Resolve 2015-09-16 Cherrise kill d 2- 12:00:00 Ora deficit: pt 12:00: [id number] 00 Safety sanitation Safety Resolve 2016-03-01 Cherrise hazards d 2-17 12:00:00 Abbe present 12:00: [id number] 00 Safety risk for Safety Resolve 2016-03-01 Cherrise hospitaliza d 2-18 12:00:00 Ora tion 12:15: [id number] 00 Neuro knowledge/s Neuro/Emot Resolve 2016-08-16 Cherrise kill ion d 2- 12:45:00 Ora deficit: pt 13:29: [id number] 57 Safety structural Safety Resolve 2016-03-01 Cherrise barriers d 2- 12:00:00 Ora present 13:29: [id number] 57 Respiratory knowledge/s Respirator Resolve 2016-04-27 Chelsea kill y d 10-27 11:15:00 Son deficit: cg 09:40: [id number] 00 Pain frequent Pain Mgmt Resolve 2018-08-28 Chelsea pain d 11-03 12:45:00 Son 13:04: [id number] 00 Pain knowledge/s Pain Mgmt Resolve 2016-02-24 Chelsea kill d 11-03 13:35:00 Son deficit: pt 13:04: [id number] 00 Respiratory knowledge/s Respirator Resolve 2016-04-27 Chelsea kill y d 11-03 11:15:00 Son deficit: pt 13:04: [id number] 00 Safety fall risk Safety Resolve 2016-03-01 Chelsea factor d 11-03 12:00:00 Son present 13:04: [id number] 00 Endo/Hugo insulin Endo/Hugo Resolve 2016-10-17 Chelsea admn d 11-24 12:30:00 Son dependence 10:48: [id number] 00 Safety safety Safety Resolve 2016-03-01 Chelsea hazards d 12-22 12:00:00 Cline present 09:15: [id number] 00 Elimination constipatio Eliminatio Resolve 2016-03-01 Chelsea n n d 12-29 12:00:00 Son 13:33: [id number] 00 IV IV present IV Resolve 2016-01-26 Chelsea d 12-29 11:50:00 Son 13:33: [id number] 00 Integument skin Integument Resolve 2016-04-27 Anna integrity d 01-25 11:15:00 Regeczi risk 11:50: [id number] 00 Nutrition knowledge/s Nutrition Resolve 2016-03-01 Cherrise kill d 02-26 12:00:00 Abbe deficit: pt 10:00: [id number] 00 Pain frequent Pain Mgmt Resolve 2018-08-28 Chelsea pain d 03-01 12:45:00 Son 12:00: [id number] 00 Nutrition knowledge/s Nutrition Resolve 2016-04-06 Neida kill d 03-23 14:54:00 Malnoske deficit: pt 13:30: RN 00 Endo/Hugo insulin Endo/Hugo Resolve 2016-10-17 Chelsea admn d 04-06 12:30:00 Cline dependence 14:54: [id number] 00 Nutrition changing Nutrition Resolve 2016-05-10 Chelsea weight/appe d 04-27 11:45:00 Son tite 11:15: [id number] 00 Nutrition knowledge/s Nutrition Resolve 2016-04-27 Chelsea kill d 04-27 11:15:00 Son deficit: pt 11:15: [id number] 00 Cardio hypertensio Cardiovasc Resolve 2016-09-20 Evi n ular d 08-02 10:00:00 Hai 10:30: [id number] 00 Respiratory lung sounds Respirator Resolve 2016-08-25 Evi deficit y d 08-02 10:30:00 Ahi 10:30: [id number] 00 Respiratory CPAP Respirator Resolve 2016-10-17 Evi treatments y d 08-02 12:30:00 Hai in home 10:30: [id number] 00 Respiratory dyspnea Respirator Resolve 2016-10-17 Evi present y d 08-02 12:30:00 Hai 10:30: [id number] 00 Respiratory oxygen Respirator Resolve 2016-10-17 Evi treatments y d 08-02 12:30:00 Hai in home 10:30: [id number] 00 Integument knowledge/s Integument Resolve 2016-08-16 Evi kill d 08-02 12:45:00 Hai deficit: pt 10:30: [id number] 00 Medication knowledge/s Meds Resolve 2016-08-25 Evi kill d 08-02 10:30:00 Hai deficit: pt 10:30: [id number] 00 Neuro anxiety Neuro/Emot Resolve 2016-10-17 Evi present ion d 08-16 12:30:00 Hai 12:45: [id number] 00 Integument knowledge/s Integument Resolve 2016-08-25 Evi kill d 08-25 10:30:00 Hai deficit: pt 10:30: [id number] 00 Nutrition nutritional Nutrition Resolve 2016-08-25 Evi restriction d 08-25 10:30:00 Hai s 10:30: [id number] 00 Neuro knowledge/s Neuro/Emot Resolve 2016-2016-08-25 Evi kill ion d 08-25 10:30:00 Hai deficit: pt 10:30: [id number] 00 Medication oral med Meds Resolve 2016-08-25 Evi assistance d 08-25 10:30:00 Hai required 10:30: [id number] 00 Respiratory oxygen Respirator Unknown Evi treatments y 2-06 Hai in home 14:30: [id number] 00 Integument knowledge/s Integument Resolve 2016-09-05 Evi kill d 09-05 14:30:00 Hai deficit: pt 14:30: [id number] 00 Medication oral med Meds Resolve 2016-10-17 Evi assistance d 09-05 12:30:00 Hai required 14:30: [id number] 00 Medication knowledge/s Meds Resolve 2016-12-05 Evi kill d 09-05 17:00:00 Hai deficit: pt 14:30: [id number] 00 Respiratory lung sounds Respirator Resolve 2016-09-20 Evi deficit y d 2- 10:00:00 Hai 10:00: [id number] 00 Integument knowledge/s Integument Resolve 2016-10-17 Evi kill d 2- 12:30:00 Hai deficit: pt 10:00: [id number] 00 Integument other wound Integument Resolve 2016-10-17 Evi present d 2- 12:30:00 Hai 10:00: [id number] 00 Respiratory lung sounds Respirator Resolve 2018-10-09 Evi deficit y d 3-06 12:40:00 Hai 15:00: [id number] 00 Respiratory CPAP Respirator Unknown Eiv treatments y 3-06 Hai in home 15:00: [id number] 00 Respiratory smoker Respirator Resolve 2016-10-17 Evi y d 3-06 12:30:00 Hai 15:00: [id number] 00 Respiratory nebulizer Respirator Unknown Evi treatment y 3-06 Hai in home 15:00: [id number] 00 Respiratory dyspnea Respirator Resolve 2016-11-07 Evi present y d 10-25 12:20:00 Hai 14:15: [id number] 00 Respiratory oxygen Respirator Unknown Evi treatments y 10-25 Hai in home 14:15: [id number] 00 Respiratory smoker Respirator Resolve 2016-11-07 Evi y d 10-25 12:20:00 Hai 14:15: [id number] 00 Integument other wound Integument Resolve 2016-10-25 Evi present d 10-25 14:15:00 Hai 14:15: [id number] 00 Nutrition nutritional Nutrition Resolve 2016-11-07 Evi restriction d 10-25 12:20:00 Hai s 14:15: [id number] 00 Neuro anxiety Neuro/Emot Resolve 2016-11-07 Evi present ion d 10-25 12:20:00 Hai 14:15: [id number] 00 Medication oral med Meds Resolve 2016-12-05 Evi assistance d 10-25 17:00:00 Hai required 14:15: [id number] 00 Medication potential Meds Resolve 2016-12-05 Evi clinically d 11-07 17:00:00 Hai significant 12:20: [id number] medication 00 issue Respiratory dyspnea Respirator Resolve 2016-11-21 Evi present y d 11-14 13:30:00 Hai 14:00: [id number] 00 Respiratory oxygen Respirator Unknown Evi treatments y 11-21 Hai in home 13:30: [id number] 00 Respiratory lung sounds Respirator Resolve 2018-10-09 Evi deficit y d 11-21 12:40:00 Hai 13:30: [id number] 00 Respiratory smoker Respirator Resolve 2016-11-21 Evi y d 11-21 13:30:00 Hai 13:30: [id number] 00 Respiratory nebulizer Respirator Unknown Evi treatment y 11-21 Hai in home 13:30: [id number] 00 Neuro anxiety Neuro/Emot Resolve 2016-12-25 Evi present ion d 11-21 13:30:00 Hai 13:30: [id number] 00 Respiratory oxygen Respirator Resolve 2018-09-18 Evi treatments y d 12-05 13:30:00 Hai in home 17:00: [id number] 00 Respiratory smoker Respirator Resolve 2016-12-05 Evi y d 12-05 17:00:00 Hai 17:00: [id number] 00 Respiratory nebulizer Respirator Resolve 2018-09-18 Evi treatment y d 12-05 13:30:00 Hai in home 17:00: [id number] 00 Endo/Hugo knowledge/s Endo/Hugo Resolve 2016-12-19 Evi kill d 12-05 13:00:00 Hai deficit: pt 17:00: [id number] 00 Medication knowledge/s Meds Resolve 2016-12-25 Evi kill d 12-19 13:30:00 Hai deficit: pt 13:00: [id number] 00 Respiratory dyspnea Respirator Resolve 2017-02-27 Evi present y d 12-25 12:30:00 Hai 13:30: [id number] 00 Integument other wound Integument Resolve 2017-01-02 Evi present d 12-25 11:50:00 Hai 13:30: [id number] 00 Medication knowledge/s Meds Resolve 2016-12-25 Evi kill d 12-25 13:30:00 Hai deficit: pt 13:30: [id number] 00 Respiratory smoker Respirator Resolve 2017-01-16 Vei y d 01-16 15:00:00 Hai 15:00: [id number] 00 Respiratory lung sounds Respirator Resolve 2017-02-13 Evi deficit y d 02-13 12:45:00 Hai 12:45: [id number] 00 Respiratory smoker Respirator Resolve 2017-02-13 Evi y d 02-13 12:45:00 Hai 12:45: [id number] 00 Respiratory smoker Respirator Resolve 2017-02-27 Evi y d 02-24 12:30:00 Hai 13:00: [id number] 00 Integument other wound Integument Resolve 2017-02-24 Evi present d 02-24 13:00:00 Hai 13:00: [id number] 00 Nutrition nutritional Nutrition Resolve 2017-04-03 Tammee restriction d - 12:25:00 Eric garcia 13:00: an 00 Integument other wound Integument Resolve 2017-05-01 Evi present d 04-25 12:15:00 Hai 13:00: [id number] 00 Neuro depressive Neuro/Emot Resolve 2017-05-01 Evi feelings ion d 04-25 12:15:00 Hai present 13:00: [id number] 00 Neuro anxiety Neuro/Emot Resolve 2017-05-01 Evi present ion d 04-25 12:15:00 Hai 13:00: [id number] 00 Respiratory lung sounds Respirator Resolve 2016-072017-05-01 Evi deficit y d 0- 12:15:00 Hai 12:15: [id number] 00 Respiratory smoker Respirator Resolve 2016-072017-06-12 Evi y d 1- 11:14:00 Hai 11:14: [id number] 00 Respiratory smoker Respirator Resolve 2016-072017-06-21 Evi y d 08-21 11:15:00 Hai 11:15: [id number] 00 Integument other wound Integument Resolve 2016-072017-06-21 Evi present d 08-21 11:15:00 Hai 11:15: [id number] 00 Respiratory lung sounds Respirator Resolve 2016-072017-06-26 Evi deficit y d 08-26 12:15:00 Hai 12:15: [id number] 00 Respiratory lung sounds Respirator Unknown 2016-07 Evi deficit y 2-11 Hai 12:20: [id number] 00 Respiratory smoker Respirator Resolve 2016-072017-08-03 Evi y d 2-28 11:30:00 Hai 12:10: [id number] 00 Respiratory lung sounds Respirator Resolve 2017-08-03 Evi deficit y d 1- 11:30:00 Hai 11:30: [id number] 00 Respiratory lung sounds Respirator Resolve 2017-08-07 Evi deficit y d 1- 10:20:00 Hai 10:20: [id number] 00 Respiratory smoker Respirator Resolve 2017-08-07 Evi y d 1-08 10:20:00 Hai 10:20: [id number] 00 Respiratory lung sounds Respirator Resolve 2017-2017-08-14 Evi deficit y d 1-15 11:30:00 Hai 11:30: [id number] 00 Respiratory smoker Respirator Resolve 2017-2017-08-14 Evi y d 1-15 11:30:00 Hai 11:30: [id number] 00 Integument other wound Integument Resolve 2017-2017-08-21 Evi present d 1- 10:50:00 Hai 10:50: [id number] 00 Respiratory smoker Respirator Resolve 2017-2017-09-04 Evi y d 1- 12:40:00 Hai 12:30: [id number] 00 Respiratory lung sounds Respirator Resolve 2017-09-11 Evi deficit y d 2-12 13:00:00 Hai 13:00: [id number] 00 Respiratory lung sounds Respirator Resolve 2017-09-20 Evi deficit y d 2-21 11:15:00 Hai 11:15: [id number] 00 Respiratory lung sounds Respirator Resolve 2017-2017-09-27 Evi deficit y d 2-28 11:45:00 Hai 11:45: [id number] 00 Respiratory lung sounds Respirator Resolve 2017-10-18 Evi deficit y d 3-21 11:00:00 Hai 11:00: [id number] 00 Respiratory smoker Respirator Resolve 2017-10-18 Evi y d 3-21 11:00:00 Hai 11:00: [id number] 00 Integument other wound Integument Resolve 2017-10-25 Evi present d 3-21 11:00:00 Hai 11:00: [id number] 00 Respiratory lung sounds Respirator Resolve 2018-10-09 Evi deficit y d 4-10 12:40:00 Hai 14:45: [id number] 00 Respiratory smoker Respirator Resolve 2017-2017-11-15 Evi y d 4-18 11:00:00 Hai 11:00: [id number] 00 Respiratory lung sounds Respirator Resolve 2017-2018-10-09 Evi deficit y d 4-25 12:40:00 Hai 13:40: [id number] 00 Respiratory smoker Respirator Resolve 2017-11-22 Evi y d 11-22 13:40:00 Hai 13:40: [id number] 00 Respiratory smoker Respirator Resolve 2017-12-06 Evi y d 12-06 13:15:00 Hai 13:15: [id number] 00 Respiratory lung sounds Respirator Resolve 2017-12-13 Evi deficit y d 5 13:00:00 Hai 13:00: [id number] 00 Respiratory lung sounds Respirator Resolve 2017-12-26 Evi deficit y d 12-20 12:05:00 Hai 13:15: [id number] 00 Integument other wound Integument Resolve 2017-12-26 Evi present d 12-20 12:05:00 Hai 13:15: [id number] 00 Respiratory lung sounds Respirator Resolve 2018-01-03 Evi deficit y d 606 12:38:00 Hai 12:38: [id number] 00 Respiratory lung sounds Respirator Resolve 2018-10-09 Evi deficit y d 6-13 12:40:00 Hai 15:00: [id number] 00 Respiratory smoker Respirator Resolve 2018-01-10 Evi y d 6-13 15:00:00 Hai 15:00: [id number] 00 Respiratory lung sounds Respirator Resolve 2018-01-24 Evi deficit y d 6- 13:10:00 Hai 13:10: [id number] 00 Nutrition nutritional Nutrition Active Evi restriction 01-24 Hai s 13:10: [id number] 00 Safety sanitation Safety Resolve 2018-06-05 Evi hazards d 01-24 10:35:00 Hai present 13:10: [id number] 00 Safety fall risk Safety Resolve 2018-02-19 Evi factor d 01-24 14:02:00 Hai present 13:10: [id number] 00 Safety risk for Safety Resolve 2018-10-30 Evi hospitaliza d 01-24 13:06:00 Hai tion 13:10: [id number] 00 Safety structural Safety Resolve 2018-02-19 Evi barriers d 01-24 14:02:00 Hai present 13:10: [id number] 00 Safety safety Safety Resolve 2018-02-19 Evi hazards d 01-24 14:02:00 Hai present 13:10: [id number] 00 Medication oral med Meds Active Evi assistance 01-24 Hai required 13:10: [id number] 00 Medication injectable Meds Active Evi med 01-24 Hai assistance 13:10: [id number] required 00 Respiratory lung sounds Respirator Resolve 2018-10-09 Evi deficit y d 01-29 12:40:00 Hai 13:45: [id number] 00 Respiratory smoker Respirator Resolve 2018-02-07 Evi y d 01-29 13:00:00 Hai 13:45: [id number] 00 Respiratory smoker Respirator Resolve 2018-03-01 Evi y d 02-19 11:42:00 Hai 14:02: [id number] 00 Integument other wound Integument Resolve 2018-03-21 Evi present d 02-19 15:30:00 Hai 14:02: [id number] 00 Respiratory smoker Respirator Resolve 2018-03-28 Evi y d 03-28 11:36:00 Hai 11:36: [id number] 00 Respiratory smoker Respirator Resolve 2018-04-03 Evi y d 04-03 14:00:00 Hai 14:00: [id number] 00 Respiratory smoker Respirator Resolve 2018-04-10 Evi y d 04-10 14:40:00 Hai 14:40: [id number] 00 Integument other wound Integument Resolve 2018-04-24 Evi present d 04-18 10:16:00 Hai 11:00: [id number] 00 Respiratory smoker Respirator Resolve 2017-072018-05-16 Evi y d 0 14:20:00 Hai 10:50: [id number] 00 Respiratory smoker Respirator Resolve 2017-072018-05-29 Evi y d 0 11:30:00 Hai 11:30: [id number] 00 Respiratory smoker Respirator Resolve 2017-072018-06-05 Evi y d 08-05 10:35:00 Hai 10:35: [id number] 00 Safety safety Safety Resolve 2017-072018-06-05 Evi hazards d 08-05 10:35:00 Hai present 10:35: [id number] 00 Integument other wound Integument Resolve 2017-072018-06-26 Evi present d 08-19 15:15:00 Hai 11:12: [id number] 00 Respiratory smoker Respirator Resolve 2017-072018-06-26 Evi y d 08-26 15:15:00 Hai 15:15: [id number] 00 Respiratory smoker Respirator Resolve 2017-072018-07-03 Evi y d 09-03 11:13:00 Hai 11:13: [id number] 00 Respiratory smoker Respirator Resolve 2017-072018-07-17 Evi y d 09-10 11:38:00 Hai 11:20: [id number] 00 Respiratory smoker Respirator Resolve 2017-072018-07-23 Evi y d 09-23 10:00:00 Hai 10:00: [id number] 00 Integument other wound Integument Resolve 2018-08-14 Evi present d 08-14 15:44:00 Hai 15:44: [id number] 00 Pain frequent Pain Mgmt Resolve 2018-08-28 Evi pain d 08-25 12:45:00 Hai 09:33: [id number] 56 Pain severe pain Pain Mgmt Resolve 2018-08-28 Evi d 08-25 12:45:00 Hai 09:33: [id number] 56 Integument other wound Integument Resolve 2018-08-28 Evi present d 08-25 12:45:00 Hai 09:33: [id number] 56 Respiratory smoker Respirator Resolve 2018-08-28 Evi y d 08-28 12:45:00 Hai 12:45: [id number] 00 Respiratory smoker Respirator Resolve 2018-09-04 Evi y d 09-04 11:30:00 Hai 11:30: [id number] 00 Respiratory smoker Respirator Resolve 2018-2018-09-18 Evi y d 09-10 13:30:00 Hai 16:40: [id number] 00 Pain severe pain Pain Mgmt Resolve 2018-09-25 Evi d 2- 10:30:00 Hai 13:30: [id number] 00 Neuro anxiety Neuro/Emot Unknown Evi present ion 09-18 Hai 13:30: [id number] 00 Respiratory oxygen Respirator Resolve 2018-2018-10-16 Evi treatments y d 3- 11:45:00 Hai in home 10:45: [id number] 00 Respiratory smoker Respirator Resolve 2018-10-09 Evi y d 3- 12:40:00 Hai 10:45: [id number] 00 Respiratory nebulizer Respirator Resolve 2018-10-16 Evi treatment y d 10-02 11:45:00 Hai in home 10:45: [id number] 00 Respiratory lung sounds Respirator Resolve 2018-10-16 Evi deficit y d 10-16 11:45:00 Hai 11:45: [id number] 00 Respiratory smoker Respirator Resolve 2018-10-16 Evi y d 10-16 11:45:00 Hai 11:45: [id number] 00 Integument other wound Integument Resolve 2018-10-23 Evi present d 10-16 11:20:00 Hai 11:45: [id number] 00 Respiratory nebulizer Respirator Resolve 2018-10-23 Evi treatment y d 10-23 11:20:00 Hai in home 11:20: [id number] 00 Safety safety Safety Resolve 2018-10-23 Evi hazards d 10-23 11:20:00 Hai present 11:20: [id number] 00 Respiratory lung sounds Respirator Unknown Evi deficit y 10-30 Hai 13:06: [id number] 00 Respiratory oxygen Respirator Resolve 2018-11-20 Evi treatments y d 11-06 10:35:00 Hai in home 11:31: [id number] 00 Respiratory smoker Respirator Resolve 2018-11-06 Evi y d 11-06 11:31:00 Hai 11:31: [id number] 00 Respiratory nebulizer Respirator Resolve 2018-11-20 Evi treatment y d 11-06 10:35:00 Hai in home 11:31: [id number] 00 Safety risk for Safety Resolve 2018-11-12 Evi hospitaliza d 11-06 10:00:00 Hai tion 11:31: [id number] 00 Respiratory smoker Respirator Resolve 2018-11-20 Evi y d 11-12 10:35:00 Hai 10:00: [id number] 00 Respiratory lung sounds Respirator Resolve 2018-11-20 Evi deficit y d 11-20 10:35:00 Hai 10:35: [id number] 00 Safety risk for Safety Resolve 2018-11-27 Evi hospitaliza d 11-20 11:00:00 Hai tion 10:35: [id number] 00 Pain severe pain Pain Mgmt Resolve 2018-12-04 Evi d 11-27 11:35:00 Hai 11:00: [id number] 00 Respiratory oxygen Respirator Resolve 2018-12-12 Evi treatments y d 11-27 09:08:00 Hai in home 11:00: [id number] 00 Respiratory lung sounds Respirator Resolve 2018-12-04 Evi deficit y d 11-27 11:35:00 Hai 11:00: [id number] 00 Respiratory nebulizer Respirator Resolve 2018-12-12 Evi treatment y d 11-27 09:08:00 Hai in home 11:00: [id number] 00 Respiratory smoker Respirator Resolve 2018-12-04 Evi y d 12-04 11:35:00 Hai 11:35: [id number] 00 Safety risk for Safety Resolve 2018-12-12 Evi hospitaliza d 12-04 09:08:00 Hai tion 11:35: [id number] 00 Cardio hypertensio Cardiovasc Resolve 2018-12-18 Evi n ular d 12-12 14:00:00 Hai 09:08: [id number] 00 Respiratory lung sounds Respirator Resolve 2018-12-12 Evi deficit y d 12-12 09:08:00 Hai 09:08: [id number] 00 Respiratory smoker Respirator Resolve 2018-12-12 Evi y d 12-12 09:08:00 Hai 09:08: [id number] 00 Integument other wound Integument Resolve 2018-12-18 Evi present d 5-15 14:00:00 Hai 09:08: [id number] 00 Safety risk for Safety Resolve 2018-2019-01-01 Evi hospitaliza d 12-18 13:20:00 Hai tion 14:00: [id number] 00 Cardio hypertensio Cardiovasc Resolve 2018-2019-01-01 Evi n ular d 12-25 13:20:00 Hai 10:30: [id number] 00 Respiratory oxygen Respirator Resolve 2018-2019-01-08 Evi treatments y d 5- 11:00:00 Hai in home 10:30: [id number] 00 Respiratory lung sounds Respirator Resolve 2019-01-01 Evi deficit y d 12-25 13:20:00 Hai 10:30: [id number] 00 Respiratory nebulizer Respirator Resolve 2019-01-08 Evi treatment y d 12-25 11:00:00 Hai in home 10:30: [id number] 00 Cardio hypertensio Cardiovasc Resolve 2019-01-15 Evi n ular d 6- 12:05:00 Hai 11:00: [id number] 00 Respiratory smoker Respirator Resolve 2018-2019-01-08 Evi y d 6- 11:00:00 Hai 11:00: [id number] 00 Respiratory lung sounds Respirator Resolve 2018-2019-01-08 Evi deficit y d 6-11 11:00:00 Hai 11:00: [id number] 00 Safety risk for Safety Resolve 2019-01-15 Evi hospitaliza d 6- 12:05:00 Hai tion 11:00: [id number] 00 Respiratory lung sounds Respirator Unknown Evi deficit y 01-15 Hai 12:05: [id number] 00 Respiratory nebulizer Respirator Resolve 2019-01-22 Evi treatment y d 6-18 11:45:00 Hai in home 12:05: [id number] 00 Respiratory oxygen Respirator Resolve 2019-01-22 Evi treatments y d 01-22 11:45:00 Hai in home 11:45: [id number] 00 Respiratory smoker Respirator Resolve 2019-01-22 Evi y d 6 11:45:00 Hai 11:45: [id number] 00 Respiratory lung sounds Respirator Resolve 2018-2019-02-05 Vei deficit y d 01-29 11:30:00 Hai 11:40: [id number] 00 Respiratory smoker Respirator Resolve 2019-02-05 Evi y d 01-29 11:30:00 Hai 11:40: [id number] 00 Respiratory nebulizer Respirator Resolve 2019-02-05 Evi treatment y d 01-29 11:30:00 Hai in home 11:40: [id number] 00 Pain severe pain Pain Mgmt Resolve 2019-02-12 Evi d 02-08 13:30:00 Hai 16:30: [id number] 00 Respiratory oxygen Respirator Resolve 2019-02-19 Evi treatments y d 02-12 14:00:00 Hai in home 13:30: [id number] 00 Respiratory nebulizer Respirator Resolve 2019-02-19 Evi treatment y d 02-12 14:00:00 Hai in home 13:30: [id number] 00 Integument other wound Integument Resolve 2019-02-12 Evi present d 02-12 13:30:00 Hai 13:30: [id number] 00 Safety fall risk Safety Resolve 2019-02-12 Evi factor d 02-12 13:30:00 Hai present 13:30: [id number] 00 Safety risk for Safety Resolve 2019-07-02 Evi hospitaliza d 02-12 11:45:00 Hai tion 13:30: [id number] 00 Respiratory smoker Respirator Resolve 2019-02-19 Evi y d 02-19 14:00:00 Hai 14:00: [id number] 00 Integument knowledge/s Integument Resolve 2019-02-27 Evi kill d 02-19 11:00:00 Hai deficit: pt 14:00: [id number] 00 Respiratory nebulizer Respirator Unknown Evi treatment y 02-27 Hai in home 11:00: [id number] 00 Respiratory smoker Respirator Resolve 2019-03-05 Evi y d 03-05 13:00:00 Hai 13:00: [id number] 00 Respiratory lung sounds Respirator Resolve 2019-04-09 Evi deficit y d 03-05 14:30:00 Hai 13:00: [id number] Endo/Hugo glucose Endo/Hugo Resolve 2019-03-19 Evi tolerance d 03-05 13:30:00 Hai problem 13:00: [id number] 00 Endo/Hugo knowledge/s Endo/Hugo Resolve 2019-03-19 Evi kill d 03-05 13:30:00 Hai deficit 13:00: [id number] hypo/hyperg 00 lycemia: pt Integument other wound Integument Resolve 2019-03-05 Evi present d 03-05 13:00:00 Hai 13:00: [id number] 00 Respiratory oxygen Respirator Resolve 2019-03-26 Evi treatments y d 8-13 16:55:00 Hai in home 13:00: [id number] 00 Respiratory nebulizer Respirator Resolve 2019-03-26 Evi treatment y d 8 16:55:00 Hai in home 13:00: [id number] 00 Respiratory oxygen Respirator Resolve 2019-04-09 Evi treatments y d 04-02 14:30:00 Hai in home 12:15: [id number] 00 Respiratory nebulizer Respirator Resolve 2019-04-09 Evi treatment y d 04-02 14:30:00 Hai in home 12:15: [id number] 00 Endo/Hugo knowledge/s Endo/Hugo Resolve 2019-06-25 Evi kill d 04-02 12:00:00 Hai deficit: pt 12:15: [id number] 00 Endo/Hugo knowledge/s Endo/Hugo Resolve 2019-06-25 Evi kill d 04-02 12:00:00 Hai deficit 12:15: [id number] hypo/hyperg 00 lycemia: pt Respiratory smoker Respirator Resolve 2019-04-09 Evi y d 04-09 14:30:00 Hai 14:30: [id number] 00 Endo/Huog glucose Endo/Hugo Resolve 2019-04-09 Evi tolerance d 9-10 14:30:00 Hai problem 14:30: [id number] 00 Respiratory oxygen Respirator Resolve 2019-04-23 Evi treatments y d 9-16 14:15:00 Hai in home 14:00: [id number] 00 Respiratory smoker Respirator Resolve 2019-04-23 Vei y d 9-16 14:15:00 Hai 14:00: [id number] 00 Respiratory nebulizer Respirator Resolve 2019-04-23 Evi treatment y d 9-16 14:15:00 Hai in home 14:00: [id number] 00 Endo/Hugo anti-coagul Endo/Hugo Resolve 2019-04-23 Evi ation d 9-16 14:15:00 Hai therapy 14:00: [id number] 00 Endo/Hugo glucose Endo/Hugo Resolve 2019-04-23 Evi tolerance d 9-24 14:15:00 Hai problem 14:15: [id number] 00 Respiratory lung sounds Respirator Resolve 2018-072019-05-07 Evi deficit y d 0-01 15:20:00 Hai 11:06: [id number] 00 Respiratory smoker Respirator Resolve 2018-072019-05-07 Evi y d 0-01 15:20:00 Hai 11:06: [id number] 00 Respiratory oxygen Respirator Resolve 2018-072019-05-15 Evi treatments y d 0-08 10:00:00 Hai in home 15:20: [id number] 00 Respiratory nebulizer Respirator Resolve 2018-072019-05-15 Evi treatment y d 0-08 10:00:00 Hai in home 15:20: [id number] 00 Respiratory lung sounds Respirator Resolve 2018-072019-05-15 Evi deficit y d 0-16 10:00:00 Hai 10:00: [id number] 00 Respiratory lung sounds Respirator Resolve 2018-072019-05-28 Evi deficit y d 0-23 13:15:00 Hai 09:30: [id number] 00 Respiratory oxygen Respirator Active 2018-07 Evi treatments y 0-29 Hai in home 13:15: [id number] 00 Respiratory nebulizer Respirator Active 2018-07 Evi treatment y 0-29 Hai in home 13:15: [id number] 00 Respiratory smoker Respirator Resolve 2018-072019-05-28 Evi y d 0-29 13:15:00 Hai 13:15: [id number] 00 Respiratory lung sounds Respirator Resolve 2018-072019-06-04 Evi deficit y d 1-05 12:00:00 Hai 12:00: [id number] 00 Respiratory lung sounds Respirator Resolve 2018-072019-06-25 Evi deficit y d 1-11 12:00:00 Hai 11:00: [id number] 00 Respiratory smoker Respirator Resolve 2018-072019-06-18 Evi y d 1-11 12:45:00 Hai 11:00: [id number] 00 Integument other wound Integument Resolve 2018-072019-06-18 Evi present d 1-11 12:45:00 Hai 11:00: [id number] 00 Safety fall risk Safety Resolve 2018-072019-06-25 Evi factor d 1-11 12:00:00 Hai present 11:00: [id number] 00 Respiratory smoker Respirator Resolve 2018-072019-06-25 Evi y d 1- 12:00:00 Hai 12:00: [id number] 00 Neuro anxiety Neuro/Emot Active 2018-07 Evi present ion 1-26 Hai 12:00: [id number] 00 Neuro memory Neuro/Emot Active 2018-07 Evi deficit ion 1-26 Hai needing 12:00: [id number] 00 Respiratory smoker Respirator Resolve 2018-072019-07-30 Evi y d 2-03 11:00:00 Hai 11:45: [id number] 00 Respiratory lung sounds Respirator Resolve 2018-072019-07-30 Evi deficit y d 2-11 11:00:00 Hai 13:05: [id number] 00 Safety risk for Safety Resolve 2018-072019-07-10 Evi hospitaliza d 2-11 13:05:00 Hai tion 13:05: [id number] 00 Safety risk for Safety Resolve 2018-072019-07-23 Evi hospitaliza d 2-17 11:00:00 Hai tion 15:00: [id number] 00 Safety risk for Safety Resolve 2018-072019-07-30 Evi sams d 11:00:00 Hai tion 11:00: [id number] 00 Safety risk for Safety Active Evi sams 08-06 Hai tion 12:30: [id number] 00 Medication potential Meds Active Evi clinically 08-06 Hai significant 12:30: [id number] medication 00 issue Allergies, Adverse Reactions, Alerts Allergy Allergy Type [...] Darlow 12.5 mg Unknown thiazide thiazide 2 ,Leroy 12.5 mg 12.5 mg tablet tablet cetirizine cetirizine No Darlow 10 mg Unknown 10 mg 10 mg 09-04 Leroy DUMONT tablet tablet albuterol albuterol No Darlow 1 amp Unknown sulfate 2.5 sulfate 2.5 09-04 ,Leroy mg/3 mL mg/3 mL (0.083 %) (0.083 [...] tablet mg tablet 09-04 ,Leroy lisinopril lisinopril No Darlow 20 mg Unknown 10 mg 10 mg 09-04 Leroy DUMONT (2 abs) tablet tablet traMADol 50 traMADol 50 2016-0 2017- No Darlow 50 mg Unknown mg tablet mg tablet 09-04 ,Leroy traMADol ER traMADol ER 2015- No Darlow 200 mg Unknown 200 mg 200 mg 09-04 MD,Leroy capsule capsule 24h,extende 24h,extende d d release(25- release(25- 75) 75) methocarbam methocarbam 2016- No Darlow 500 mg Unknown ol 500 mg ol 500 mg 09-04 ,Leroy tablet tablet ProAir HFA ProAir HFA No Darlow 2 puffs Unknown 90 90 09-04 ,Leroy mcg/actuati mcg/actuati on aerosol on aerosol inhaler inhaler Pataday 0.2 Pataday 0.2 No Darlow 1 drop Unknown % eye drops % eye drops 09-04 ,Leroy senna 8.6 senna 8.6 2018- No Darlow 8,6 mg Unknown mg tablet mg tablet 09-04 ,Leroy mupirocin 2 mupirocin 2 No Darlow 1 Unknown % topical % topical 09-04 ,Leroy ointment ointment betamethaso betamethaso 2017- No Darlow 1 Unknown ne valerate ne valerate 09-04 ,Leroy 0.1 % 0.1 % topical topical cream cream metFORMIN metFORMIN 2018- No Darlow 1000 mg Unknown 1,000 mg 1,000 mg 09-04 ,Leroy tablet tablet Lyrica 75 Lyrica 75 No Darlow 75 mg Unknown mg capsule mg capsule 09-04 ,Leroy HumaLOG HumaLOG 2016- No Darlow 5- 10 Unknown KwikPen KwikPen 09-04 ,Leroy units (U-100) (U-100) Insulin 100 Insulin 100 unit/mL unit/mL subcutaneou subcutaneou s s Lantus Apolinarus 2016- No Darlow 6-20 Unknown U-100 U-100 09-04 ,Leroy units Insulin 100 Insulin 100 unit/mL unit/mL subcutaneou subcutaneou s solution s solution benzonatate benzonatate 2017- No Darlow 200 mg Unknown 200 mg 200 mg 09-04- ,Leroy capsule capsule Symbicort Symbicort No Darlow 2 puffs Unknown 160 mcg-4.5 160 mcg-4.5 2- ,Leroy mcg/actuati mcg/actuati on HFA on HFA aerosol aerosol inhaler inhaler FLUoxetine FLUoxetine No Darlow 40 mg Unknown 40 mg 40 mg 09-04 MD,Leroy capsule capsule oxygen oxygen 2015- No Darlow 2 liter Unknown permeable permeable 09-04 ,Leroy 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 FLUoxetine FLUoxetine No Darlow 3 caps Unknown 20 mg 20 mg 11-19 MD,Leroy (60 mg) capsule capsule Invokana Invokana 2018- No Darlow 100 mg Unknown 100 mg 100 mg 11-19 ,Leroy tablet tablet Benadryl 25 Benadryl 25 No Darlow 1-2 Unknown mg capsule mg capsule 01-26 MD,Leroy tabs Oxygen Oxygen No Darlow 2 lpm [...] [place] Unknown Unknown mg capsule mg capsule 08-06- ,Hugo amoxicillin amoxicillin 2016- No Darlow 875/125 Unknown [...] Unknown one 1 % one 1 % 8 ,Leroy topical topical ointment ointment Duragesic Duragesic 2018- No [place] Unknown Unknown 25 mcg/hr 25 mcg/hr 04-26 Hugo DUMONT transdermal transdermal patch patch lisinopril lisinopril No Darlow Unknown Unknown 20 mg 20 mg 3- MD,Leroy tablet tablet Colace 100 Colace 100 2018- No Darlow Unknown Unknown mg capsule mg capsule 10-07- ,Leroy Colace 100 Colace 100 2018- No Darlow Unknown Unknown mg capsule mg capsule 10-10 ,Leroy Colace 100 Colace 100 No Darlow Unknown Unknown mg capsule mg capsule - MD,Leroy glimepiride glimepiride No Darlow Unknown Unknown [...] Unknown Unknown mg capsule mg capsule 02-06 09- Hugo DUMONT Fluocinonid Fluocinonid No Yentzer Unknown [...] mg 02-15 ,Leroy tablet tablet Lantus Lantus No Darlow Unknown Unknown U-100 U-100 02-26 Leroy DUMONT Insulin 100 Insulin 100 unit/mL [...] Yes Samantha Unknown Unknown Respimat Respimat 1-11 Citlali DUMONT 2.5 2.5 mcg/actuati mcg/actuati on solution on solution for for inhalation inhalation fentaNYL 12 fentaNYL 12 2018-07 Yes [place] Unknown Unknown mcg/hr mcg/hr 2-13 Hugo DUMONT transdermal transdermal patch patch Vital Signs Vital Name Observation Time Observation Value Comments SYSTOLIC mm[Hg] 2019-08-06 18:09:45 150 mm[Hg] mm[Hg] Method: Sit SYSTOLIC mm[Hg] 2019-06-12 18:08:50 142 mm[Hg] mm[Hg] Method: Stand DIASTOLIC mm[Hg] 2019-08-06 18:09:45 80 mm[Hg] mm[Hg] Method: Sit DIASTOLIC mm[Hg] 2019-06-12 18:08:50 70 mm[Hg] mm[Hg] Method: Stand PULSE 2019-08-06 18:09:45 76 /min /min RESP RATE 2019-08-06 18:09:45 16 /min /min TEMP 2019-08-06 18:09:45 96.8 [degF] Procedures This patient has no known procedures. Results This patient has no known results.
--- OUTSIDE RECORDS SUMMARY | 2019-09-17 05:42 | XMS REPORT ---
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, disease, unspecified unspecified Essential Essential Diagnosis Active Evi (primary) (primary) 2- Hai hypertensio hypertensio [id number] n n Other Other Diagnosis Active Evi chronic chronic 2-05 Hai pain pain [id number] 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, disorder, 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, recurrent, unspecified unspecified Gastro-esop Gastro-esop Diagnosis Active Evi hageal hageal 2- Hai reflux reflux [id number] disease disease without without esophagitis esophagitis 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 [id number] Low back Low back Diagnosis Active Evi pain pain Hai [id number] Hyperlipide Hyperlipide Diagnosis Active Evi hank, hank, Hai unspecified unspecified [id number] Hypothyroid Hypothyroid Diagnosis Active Evi ism, ism, Hai unspecified unspecified [id number] Respiratory treatments Respirator Resolve 2016-10-17 [place] ordered y d 2- 12:30:00 Son [id number] Pain frequent Pain Mgmt Resolve 2018-08-28 [place] pain d 2- 12:45:00 Son 13:13: [id number] 00 Pain knowledge/s Pain Mgmt Resolve 2015-09-09 [place] kill d 09-04 10:40:00 Son deficit: pt 13:13: [id number] 00 Pain severe pain Pain Mgmt Resolve 29 Chelsea d 2-05 12:45:00 Son 13:13: [id number] 00 Respiratory dyspnea Respirator Resolve 2016-10-17 [place] present y d 2- 12:30:00 Son 13:13: [id number] 00 Respiratory oxygen Respirator Resolve 2016-10-17 [place] treatments y d 2- 12:30:00 Son in home 13:13: [id number] 00 Respiratory knowledge/s Respirator Resolve 2015-09-16 [place] kill y d 2- 12:00:00 Son deficit: pt 13:13: [id number] 00 Respiratory lung sounds Respirator Resolve 2016-06-29 [place] deficit y d 2 13:03:00 Son 13:13: [id number] 00 Endo/Hugo knowledge/s Endo/Hugo Resolve 2015-09-16 [place] kill d 2- 12:00:00 Son deficit: pt 13:13: [id number] 00 Endo/Hugo diabetic Endo/Hugo Resolve 2016-06-29 Chelsea foot care d 2- 13:03:00 Son 13:13: [id number] 00 Nutrition knowledge/s Nutrition Resolve 2015-09-04 [place] kill d 2 13:13:00 Son deficit: pt 13:13: [id number] 00 Neuro anxiety Neuro/Emot Resolve 2016-08-02 Chelsea present ion d 2- 10:30:00 Son 13:13: [id number] 00 Neuro depressive Neuro/Emot Resolve 2016-08-02 Chelsea feelings ion d 2- 10:30:00 Son present 13:13: [id number] 00 Neuro knowledge/s Neuro/Emot Resolve 2015-09-16 [place] kill ion d 2- 12:00:00 Son deficit: pt 13:13: [id number] 00 Activity ADL Activity Resolve 2016-04-27 [place] assistance d 2- 11:15:00 Son required 13:13: [id number] 00 Activity knowledge/s Activity Resolve 2016-03-01 [place] kill d 2- 12:00:00 Son deficit: pt 13:13: [id number] 00 Safety fall risk Safety Resolve 2015-09-16 Chelsea factor d 2-05 12:00:00 Cline present 13:13: [id number] 00 Safety risk for Safety Resolve 2015-09-16 [place] hospitaliza d 2-05 12:00:00 Cline tion 13:13: [id number] 00 Medication oral med Meds Resolve 2016-08-02 [place] assistance d 2-05 10:30:00 Cline required 13:13: [id number] 00 Medication injectable Meds Resolve 2016-08-02 [place] med d 2-05 10:30:00 Cline assistance 13:13: [id number] 00 Medication knowledge/s Meds Resolve 2016-06-29 [place] kill d 2-05 13:03:00 Son deficit: pt 13:13: [id number] 00 Medication potential Meds Resolve 2016-08-02 Chelsea clinically d 2- 10:30:00 Son significant 13:13: [id number] medication 00 issue Diagnoses knowledge/s Diagnoses Active Chelsea kill - Cline deficit: pt 13:13: [id number] 00 Pain knowledge/s Pain Mgmt Resolve 2015-09-16 Cher[place] kill d 2- 12:00:00 [place] deficit: pt 12:00: [id number] 00 Safety sanitation Safety Resolve 2016-03-01 [place] hazards d 2-17 12:00:00 Abbe present 12:00: [id number] 00 Safety risk for Safety Resolve 2016-03-01 Cherrise hospitaliza d 2-18 12:00:00 [place] tion 12:15: [id number] 00 Neuro knowledge/s Neuro/Emot Resolve 2016-08-16 Cher[place] kill ion d 2- 12:45:00 [place] deficit: pt 13:29: [id number] Safety structural Safety Resolve 2016-03-01 Cherrise barriers d 2- 12:00:00 [place] present 13:29: [id number] 57 Respiratory knowledge/s Respirator Resolve 2016-04-27 [place] kill y d 10-27 11:15:00 Son deficit: cg 09:40: [id number] 00 Pain frequent Pain Mgmt Resolve 2018-08-28 [place] pain d 11-03 12:45:00 Son 13:04: [id number] 00 Pain knowledge/s Pain Mgmt Resolve 2016-02-24 [place] kill d 11-03 13:35:00 Son deficit: pt 13:04: [id number] 00 Respiratory knowledge/s Respirator Resolve 2016-04-27 [place] kill y d 11-03 11:15:00 Son deficit: pt 13:04: [id number] 00 Safety fall risk Safety Resolve 2016-03-01 [place] factor d 11-03 12:00:00 Son present 13:04: [id number] 00 Endo/Hugo insulin Endo/Hugo Resolve 2016-10-17 [place] admn d 11-24 12:30:00 Son dependence 10:48: [id number] 00 Safety safety Safety Resolve 2016-03-01 [place] hazards d 12-22 12:00:00 Cline present 09:15: [id number] 00 Elimination constipatio Eliminatio Resolve 2016-03-01 [place] n n d 12-29 12:00:00 Son 13:33: [id number] 00 IV IV present IV Resolve 2016-01-26 Chelsea d 12-29 11:50:00 Son 13:33: [id number] 00 Integument skin Integument Resolve 2016-04-27 Anna integrity d 01-25 11:15:00 Regeczi risk 11:50: [id number] 00 Nutrition knowledge/s Nutrition Resolve 2016-03-01 [place] kill d 02-26 12:00:00 Abbe deficit: pt 10:00: [id number] 00 Pain frequent Pain Mgmt Resolve 2018-08-28 [place] pain d 03-01 12:45:00 Son 12:00: [id number] 00 Nutrition knowledge/s Nutrition Resolve 2016-04-06 Neida kill d 03-23 14:54:00 [place] deficit: pt 13:30: RN 00 Endo/Hugo insulin Endo/Hugo Resolve 2016-10-17 [place] admn d 04-06 12:30:00 Cline dependence 14:54: [id number] 00 Nutrition changing Nutrition Resolve 2016-05-10 Chelsea weight/appe d 04-27 11:45:00 Son tite 11:15: [id number] 00 Nutrition knowledge/s Nutrition Resolve 2016-04-27 [place] kill d 04-27 11:15:00 Son deficit: pt 11:15: [id number] 00 Cardio hypertensio Cardiovasc Resolve 2016-09-20 Evi n ular d 08-02 10:00:00 Hai 10:30: [id number] 00 Respiratory lung sounds Respirator Resolve 2016-08-25 Evi deficit y d 08-02 10:30:00 Hai 10:30: [id number] 00 Respiratory CPAP Respirator Resolve 2016-10-17 Evi treatments y d 08-02 12:30:00 Hai in home 10:30: [id number] 00 Respiratory dyspnea Respirator Resolve 2016-10-17 Evi present y d 08-02 12:30:00 Hai 10:30: [id number] 00 Respiratory oxygen Respirator Resolve 2016-10-17 Evi treatments y d 08-02 12:30:00 Hai in home 10:30: [id number] 00 Integument knowledge/s Integument Resolve 2016-08-16 Evi kill d 08-02 12:45:00 Hai deficit: pt 10:30: [id number] 00 Medication knowledge/s Meds Resolve 2016-08-25 Evi kill d 08-02 10:30:00 Hai deficit: pt 10:30: [id number] 00 Neuro anxiety Neuro/Emot Resolve 2016-10-17 Evi present ion d 08-16 12:30:00 Hai 12:45: [id number] 00 Integument knowledge/s Integument Resolve 2016-08-25 Evi kill d 08-25 10:30:00 Hai deficit: pt 10:30: [id number] 00 Nutrition nutritional Nutrition Resolve 2016-08-25 Evi restriction d 08-25 10:30:00 Hai s 10:30: [id number] 00 Neuro knowledge/s Neuro/Emot Resolve 2016-2016-08-25 Evi kill ion d 08-25 10:30:00 Hai deficit: pt 10:30: [id number] 00 Medication oral med Meds Resolve 2016-08-25 Evi assistance d 08-25 10:30:00 Hai required 10:30: [id number] 00 Respiratory oxygen Respirator Unknown Evi treatments y 2-06 Hai in home 14:30: [id number] 00 Integument knowledge/s Integument Resolve 2016-09-05 Evi kill d 09-05 14:30:00 Hai deficit: pt 14:30: [id number] 00 Medication oral med Meds Resolve 2016-10-17 Evi assistance d 09-05 12:30:00 Hai required 14:30: [id number] 00 Medication knowledge/s Meds Resolve 2016-12-05 Evi kill d 09-05 17:00:00 Hai deficit: pt 14:30: [id number] 00 Respiratory lung sounds Respirator Resolve 2016-09-20 Evi deficit y d 2- 10:00:00 Hai 10:00: [id number] 00 Integument knowledge/s Integument Resolve 2016-10-17 Evi kill d 2- 12:30:00 Hai deficit: pt 10:00: [id number] 00 Integument other wound Integument Resolve 2016-10-17 Evi present d 2- 12:30:00 Hai 10:00: [id number] 00 Respiratory lung sounds Respirator Resolve 2018-10-09 Evi deficit y d 3-06 12:40:00 Hai 15:00: [id number] 00 Respiratory CPAP Respirator Unknown Evi treatments y 3-06 Hai in home 15:00: [id number] 00 Respiratory smoker Respirator Resolve 2016-10-17 Evi y d 3-06 12:30:00 Hai 15:00: [id number] 00 Respiratory nebulizer Respirator Unknown Evi treatment y 3-06 Hai in home 15:00: [id number] 00 Respiratory dyspnea Respirator Resolve 2016-11-07 Evi present y d 10-25 12:20:00 Hai 14:15: [id number] 00 Respiratory oxygen Respirator Unknown Evi treatments y 10-25 Hai in home 14:15: [id number] 00 Respiratory smoker Respirator Resolve 2016-11-07 Evi y d 10-25 12:20:00 Hai 14:15: [id number] 00 Integument other wound Integument Resolve 2016-10-25 Evi present d 10-25 14:15:00 Hai 14:15: [id number] 00 Nutrition nutritional Nutrition Resolve 2016-11-07 Evi restriction d 10-25 12:20:00 Hai s 14:15: [id number] 00 Neuro anxiety Neuro/Emot Resolve 2016-11-07 Evi present ion d 10-25 12:20:00 Hai 14:15: [id number] 00 Medication oral med Meds Resolve 2016-12-05 Evi assistance d 10-25 17:00:00 Hai required 14:15: [id number] 00 Medication potential Meds Resolve 2016-12-05 Evi clinically d 11-07 17:00:00 Hai significant 12:20: [id number] medication 00 issue Respiratory dyspnea Respirator Resolve 2016-11-21 Evi present y d 11-14 13:30:00 Hai 14:00: [id number] 00 Respiratory oxygen Respirator Unknown Evi treatments y 11-21 Hai in home 13:30: [id number] 00 Respiratory lung sounds Respirator Resolve 2018-10-09 Evi deficit y d 11-21 12:40:00 Hai 13:30: [id number] 00 Respiratory smoker Respirator Resolve 2016-11-21 Evi y d 11-21 13:30:00 Hai 13:30: [id number] 00 Respiratory nebulizer Respirator Unknown Evi treatment y 11-21 Hai in home 13:30: [id number] 00 Neuro anxiety Neuro/Emot Resolve 2016-12-25 Evi present ion d 11-21 13:30:00 Hai 13:30: [id number] 00 Respiratory oxygen Respirator Resolve 2018-09-18 Evi treatments y d 12-05 13:30:00 Hai in home 17:00: [id number] 00 Respiratory smoker Respirator Resolve 2016-12-05 Evi y d 12-05 17:00:00 Hai 17:00: [id number] 00 Respiratory nebulizer Respirator Resolve 2018-09-18 Evi treatment y d 12-05 13:30:00 Hai in home 17:00: [id number] 00 Endo/Hugo knowledge/s Endo/Hugo Resolve 2016-12-19 Evi kill d 12-05 13:00:00 Hai deficit: pt 17:00: [id number] 00 Medication knowledge/s Meds Resolve 2016-12-25 Evi kill d 12-19 13:30:00 Hai deficit: pt 13:00: [id number] 00 Respiratory dyspnea Respirator Resolve 2017-02-27 Evi present y d 12-25 12:30:00 Hai 13:30: [id number] 00 Integument other wound Integument Resolve 2017-01-02 Evi present d 12-25 11:50:00 Hai 13:30: [id number] 00 Medication knowledge/s Meds Resolve 2016-12-25 Evi kill d 12-25 13:30:00 Hai deficit: pt 13:30: [id number] 00 Respiratory smoker Respirator Resolve 2017-01-16 Evi y d 01-16 15:00:00 Hai 15:00: [id number] 00 Respiratory lung sounds Respirator Resolve 2017-02-13 Evi deficit y d 02-13 12:45:00 Hai 12:45: [id number] 00 Respiratory smoker Respirator Resolve 2017-02-13 Evi y d 02-13 12:45:00 Hai 12:45: [id number] 00 Respiratory smoker Respirator Resolve 2017-02-27 Evi y d 02-24 12:30:00 Hai 13:00: [id number] 00 Integument other wound Integument Resolve 2017-02-24 Evi present d 02-24 13:00:00 Hai 13:00: [id number] 00 Nutrition nutritional Nutrition Resolve 2017-04-03 [place]me[place] restriction d - 12:25:00 Eric gracia 13:00: an 00 Integument other wound Integument Resolve 2017-05-01 Evi present d 04-25 12:15:00 Hai 13:00: [id number] 00 Neuro depressive Neuro/Emot Resolve 2017-05-01 Evi feelings ion d 04-25 12:15:00 Hai present 13:00: [id number] 00 Neuro anxiety Neuro/Emot Resolve 2017-05-01 Evi present ion d 04-25 12:15:00 Hai 13:00: [id number] 00 Respiratory lung sounds Respirator Resolve 2016-072017-05-01 Evi deficit y d 0- 12:15:00 Hai 12:15: [id number] 00 Respiratory smoker Respirator Resolve 2016-072017-06-12 Evi y d 1- 11:14:00 Hai 11:14: [id number] 00 Respiratory smoker Respirator Resolve 2016-072017-06-21 Evi y d 08-21 11:15:00 Hai 11:15: [id number] 00 Integument other wound Integument Resolve 2016-072017-06-21 Evi present d 08-21 11:15:00 Hai 11:15: [id number] 00 Respiratory lung sounds Respirator Resolve 2016-072017-06-26 Evi deficit y d 08-26 12:15:00 Hai 12:15: [id number] 00 Respiratory lung sounds Respirator Unknown 2016-07 Evi deficit y 2-11 Hai 12:20: [id number] 00 Respiratory smoker Respirator Resolve 2016-072017-08-03 Evi y d 2-28 11:30:00 Hai 12:10: [id number] 00 Respiratory lung sounds Respirator Resolve 2017-08-03 Evi deficit y d 1- 11:30:00 Hai 11:30: [id number] 00 Respiratory lung sounds Respirator Resolve 2017-08-07 Evi deficit y d 1- 10:20:00 Hai 10:20: [id number] 00 Respiratory smoker Respirator Resolve 2017-08-07 Evi y d 1-08 10:20:00 Hai 10:20: [id number] 00 Respiratory lung sounds Respirator Resolve 2017-2017-08-14 Evi deficit y d 1-15 11:30:00 Hai 11:30: [id number] 00 Respiratory smoker Respirator Resolve 2017-2017-08-14 Evi y d 1-15 11:30:00 Hai 11:30: [id number] 00 Integument other wound Integument Resolve 2017-2017-08-21 Evi present d 1- 10:50:00 Hai 10:50: [id number] 00 Respiratory smoker Respirator Resolve 2017-2017-09-04 Evi y d 1- 12:40:00 Hai 12:30: [id number] 00 Respiratory lung sounds Respirator Resolve 2017-09-11 Evi deficit y d 2-12 13:00:00 Hai 13:00: [id number] 00 Respiratory lung sounds Respirator Resolve 2017-09-20 Evi deficit y d 2-21 11:15:00 Hai 11:15: [id number] 00 Respiratory lung sounds Respirator Resolve 2017-2017-09-27 Evi deficit y d 2-28 11:45:00 Hai 11:45: [id number] 00 Respiratory lung sounds Respirator Resolve 2017-10-18 Evi deficit y d 3-21 11:00:00 Hai 11:00: [id number] 00 Respiratory smoker Respirator Resolve 2017-10-18 Evi y d 3-21 11:00:00 Hai 11:00: [id number] 00 Integument other wound Integument Resolve 2017-10-25 Evi present d 3-21 11:00:00 Hai 11:00: [id number] 00 Respiratory lung sounds Respirator Resolve 2018-10-09 Evi deficit y d 4-10 12:40:00 Hai 14:45: [id number] 00 Respiratory smoker Respirator Resolve 2017-2017-11-15 Evi y d 4-18 11:00:00 Hai 11:00: [id number] 00 Respiratory lung sounds Respirator Resolve 2017-2018-10-09 Evi deficit y d 4-25 12:40:00 Hai 13:40: [id number] 00 Respiratory smoker Respirator Resolve 2017-11-22 Evi y d 11-22 13:40:00 Hai 13:40: [id number] 00 Respiratory smoker Respirator Resolve 2017-12-06 Evi y d 12-06 13:15:00 Hai 13:15: [id number] 00 Respiratory lung sounds Respirator Resolve 2017-12-13 Evi deficit y d 12-13 13:00:00 Hai 13:00: [id number] 00 Respiratory lung sounds Respirator Resolve 2017-12-26 Evi deficit y d 12-20 12:05:00 Hai 13:15: [id number] 00 Integument other wound Integument Resolve 2017-12-26 Evi present d 12-20 12:05:00 Hai 13:15: [id number] 00 Respiratory lung sounds Respirator Resolve 2018-01-03 Evi deficit y d 06 12:38:00 Hai 12:38: [id number] 00 Respiratory lung sounds Respirator Resolve 2018-10-09 Evi deficit y d 6-13 12:40:00 Hai 15:00: [id number] 00 Respiratory smoker Respirator Resolve 2018-01-10 Evi y d 6-13 15:00:00 Hai 15:00: [id number] 00 Respiratory lung sounds Respirator Resolve 2018-01-24 Evi deficit y d 6- 13:10:00 Hai 13:10: [id number] 00 Nutrition nutritional Nutrition Resolve 2019-08-13 Evi restriction d 6 10:50:00 Hai s 13:10: [id number] 00 Safety sanitation Safety Resolve 2018-06-05 Evi hazards d 6- 10:35:00 Hai present 13:10: [id number] 00 Safety fall risk Safety Resolve 2018-02-19 Evi factor d 6 14:02:00 Hai present 13:10: [id number] 00 Safety risk for Safety Resolve 2018-10-30 Evi hospitaliza d 01-24 13:06:00 Hai tion 13:10: [id number] 00 Safety structural Safety Resolve 2018-02-19 Evi barriers d 01-24 14:02:00 Hai present 13:10: [id number] 00 Safety safety Safety Resolve 2018-02-19 Evi hazards d 01-24 14:02:00 Hai present 13:10: [id number] 00 Medication oral med Meds Active Evi assistance 01-24 Hai required 13:10: [id number] 00 Medication injectable Meds Active Evi med 01-24 Hai assistance 13:10: [id number] required 00 Respiratory lung sounds Respirator Resolve 2018-10-09 Evi deficit y d 01-29 12:40:00 Hai 13:45: [id number] 00 Respiratory smoker Respirator Resolve 2018-02-07 Evi y d 01-29 13:00:00 Hai 13:45: [id number] 00 Respiratory smoker Respirator Resolve 2018-03-01 Evi y d 02-19 11:42:00 Hai 14:02: [id number] 00 Integument other wound Integument Resolve 2018-03-21 Evi present d 02-19 15:30:00 Hai 14:02: [id number] 00 Respiratory smoker Respirator Resolve 2018-03-28 Evi y d 03-28 11:36:00 Hai 11:36: [id number] 00 Respiratory smoker Respirator Resolve 2018-04-03 Evi y d 04-03 14:00:00 Hai 14:00: [id number] 00 Respiratory smoker Respirator Resolve 2018-04-10 Evi y d 04-10 14:40:00 Hai 14:40: [id number] 00 Integument other wound Integument Resolve 2018-04-24 Evi present d 04-18 10:16:00 Hai 11:00: [id number] 00 Respiratory smoker Respirator Resolve 2017-072018-05-16 Evi y d 0 14:20:00 Hai 10:50: [id number] 00 Respiratory smoker Respirator Resolve 2017-072018-05-29 Evi y d 11:30:00 Hai 11:30: [id number] 00 Respiratory smoker Respirator Resolve 2017-072018-06-05 Evi y d 08-05 10:35:00 Hai 10:35: [id number] 00 Safety safety Safety Resolve 2017-072018-06-05 Evi hazards d 08-05 10:35:00 Hai present 10:35: [id number] 00 Integument other wound Integument Resolve 2017-072018-06-26 Evi present d 08-19 15:15:00 Hai 11:12: [id number] 00 Respiratory smoker Respirator Resolve 2017-072018-06-26 Evi y d 08-26 15:15:00 Hai 15:15: [id number] 00 Respiratory smoker Respirator Resolve 2017-072018-07-03 Evi y d 09-03 11:13:00 Hai 11:13: [id number] 00 Respiratory smoker Respirator Resolve 2017-072018-07-17 Evi y d 09-10 11:38:00 Hai 11:20: [id number] 00 Respiratory smoker Respirator Resolve 2017-072018-07-23 Evi y d 09-23 10:00:00 Hai 10:00: [id number] 00 Integument other wound Integument Resolve 2018-08-14 Evi present d 08-14 15:44:00 Hai 15:44: [id number] 00 Pain frequent Pain Mgmt Resolve 2018-08-28 Evi pain d 08-25 12:45:00 Hai 09:33: [id number] 56 Pain severe pain Pain Mgmt Resolve 2018-08-28 Evi d 08-25 12:45:00 Hai 09:33: [id number] 56 Integument other wound Integument Resolve 2018-08-28 Evi present d 08-25 12:45:00 Hai 09:33: [id number] 56 Respiratory smoker Respirator Resolve 2018-08-28 Evi y d 08-28 12:45:00 Hai 12:45: [id number] 00 Respiratory smoker Respirator Resolve 2018-09-04 Evi y d 09-04 11:30:00 Hai 11:30: [id number] 00 Respiratory smoker Respirator Resolve 2018-09-18 Evi y d 09-10 13:30:00 Hai 16:40: [id number] 00 Pain severe pain Pain Mgmt Resolve 2018-09-25 Evi d 2-19 10:30:00 Hai 13:30: [id number] 00 Neuro anxiety Neuro/Emot Unknown Evi present ion 09-18 Hai 13:30: [id number] 00 Respiratory oxygen Respirator Resolve 2018-10-16 Evi treatments y d 3-05 11:45:00 Hai in home 10:45: [id number] 00 Respiratory smoker Respirator Resolve 2018-10-09 Evi y d 3-05 12:40:00 Hai 10:45: [id number] 00 Respiratory nebulizer Respirator Resolve 2018-10-16 Evi treatment y d - 11:45:00 Hai in home 10:45: [id number] 00 Respiratory lung sounds Respirator Resolve 2018-10-16 Evi deficit y d 3 11:45:00 Hai 11:45: [id number] 00 Respiratory smoker Respirator Resolve 2018-10-16 Evi y d 3 11:45:00 Hai 11:45: [id number] 00 Integument other wound Integument Resolve 2018-10-23 Evi present d 10-16 11:20:00 Hai 11:45: [id number] 00 Respiratory nebulizer Respirator Resolve 2018-10-23 Evi treatment y d 10-23 11:20:00 Hai in home 11:20: [id number] 00 Safety safety Safety Resolve 2018-10-23 Evi hazards d 10-23 11:20:00 Hai present 11:20: [id number] 00 Respiratory lung sounds Respirator Unknown Evi deficit y 10-30 Hai 13:06: [id number] 00 Respiratory oxygen Respirator Resolve 2018-11-20 Evi treatments y d 11-06 10:35:00 Hai in home 11:31: [id number] 00 Respiratory smoker Respirator Resolve 2018-2018-11-06 Evi y d 11-06 11:31:00 Hai 11:31: [id number] 00 Respiratory nebulizer Respirator Resolve 2018-11-20 Evi treatment y d 11-06 10:35:00 Hai in home 11:31: [id number] 00 Safety risk for Safety Resolve 2018-11-12 Evi hospitaliza d 11-06 10:00:00 Hai tion 11:31: [id number] 00 Respiratory smoker Respirator Resolve 2018-11-20 Evi y d 11-12 10:35:00 Hai 10:00: [id number] 00 Respiratory lung sounds Respirator Resolve 2018-11-20 Evi deficit y d 11-20 10:35:00 Hai 10:35: [id number] 00 Safety risk for Safety Resolve 2018-11-27 Evi hospitaliza d 11-20 11:00:00 Hai tion 10:35: [id number] 00 Pain severe pain Pain Mgmt Resolve 2018-12-04 Evi d 11-27 11:35:00 Hai 11:00: [id number] 00 Respiratory oxygen Respirator Resolve 2018-12-12 Evi treatments y d 11-27 09:08:00 Hai in home 11:00: [id number] 00 Respiratory lung sounds Respirator Resolve 2018-12-04 Evi deficit y d 11-27 11:35:00 Hai 11:00: [id number] 00 Respiratory nebulizer Respirator Resolve 2018-12-12 Evi treatment y d 11-27 09:08:00 Hai in home 11:00: [id number] 00 Respiratory smoker Respirator Resolve 2018-12-04 Evi y d 12-04 11:35:00 Hai 11:35: [id number] 00 Safety risk for Safety Resolve 2018-12-12 Evi hospitaliza d 12-04 09:08:00 Hai tion 11:35: [id number] 00 Cardio hypertensio Cardiovasc Resolve 2018-12-18 Evi n ular d 12-12 14:00:00 Hai 09:08: [id number] 00 Respiratory lung sounds Respirator Resolve 2018-12-12 Evi deficit y d 12-12 09:08:00 Hai 09:08: [id number] 00 Respiratory smoker Respirator Resolve 2018-12-12 Evi y d 5-15 09:08:00 Hai 09:08: [id number] 00 Integument other wound Integument Resolve 2018-12-18 Evi present d 5-15 14:00:00 Hai 09:08: [id number] 00 Safety risk for Safety Resolve 2019-01-01 Evi hospitaliza d 12-18 13:20:00 Hai tion 14:00: [id number] 00 Cardio hypertensio Cardiovasc Resolve 2018-2019-01-01 Evi n ular d 12-25 13:20:00 Hai 10:30: [id number] 00 Respiratory oxygen Respirator Resolve 2018-2019-01-08 Evi treatments y d 12-25 11:00:00 Hai in home 10:30: [id number] 00 Respiratory lung sounds Respirator Resolve 2018-2019-01-01 Evi deficit y d 12-25 13:20:00 Hai 10:30: [id number] 00 Respiratory nebulizer Respirator Resolve 2019-01-08 Evi treatment y d 12-25 11:00:00 Hai in home 10:30: [id number] 00 Cardio hypertensio Cardiovasc Resolve 2019-01-15 Evi n ular d - 12:05:00 Hai 11:00: [id number] 00 Respiratory smoker Respirator Resolve 2019-01-08 Evi y d 6- 11:00:00 Hai 11:00: [id number] 00 Respiratory lung sounds Respirator Resolve 2018-2019-01-08 Evi deficit y d 6- 11:00:00 Hai 11:00: [id number] 00 Safety risk for Safety Resolve 2019-01-15 Evi hospitaliza d - 12:05:00 Hai tion 11:00: [id number] 00 Respiratory lung sounds Respirator Unknown Evi deficit y 6 Hai 12:05: [id number] 00 Respiratory nebulizer Respirator Resolve 2018-2019-01-22 Evi treatment y d 6- 11:45:00 Hai in home 12:05: [id number] 00 Respiratory oxygen Respirator Resolve 2018-2019-01-22 Evi treatments y d 6 11:45:00 Hai in home 11:45: [id number] 00 Respiratory smoker Respirator Resolve 2019-01-22 Evi y d 6 11:45:00 Hai 11:45: [id number] 00 Respiratory lung sounds Respirator Resolve 2018-2019-02-05 Evi deficit y d 01-29 11:30:00 Hai 11:40: [id number] 00 Respiratory smoker Respirator Resolve 2019-02-05 Evi y d 01-29 11:30:00 Hai 11:40: [id number] 00 Respiratory nebulizer Respirator Resolve 2019-02-05 Evi treatment y d 01-29 11:30:00 Hai in home 11:40: [id number] 00 Pain severe pain Pain Mgmt Resolve 2019-02-12 Evi d 02-08 13:30:00 Hai 16:30: [id number] 00 Respiratory oxygen Respirator Resolve 2019-02-19 Evi treatments y d 02-12 14:00:00 Hai in home 13:30: [id number] 00 Respiratory nebulizer Respirator Resolve 2019-02-19 Evi treatment y d 02-12 14:00:00 Hai in home 13:30: [id number] 00 Integument other wound Integument Resolve 2019-02-12 Evi present d 02-12 13:30:00 Hai 13:30: [id number] Safety fall risk Safety Resolve 2019-02-12 Evi factor d 02-12 13:30:00 Hai present 13:30: [id number] Safety risk for Safety Resolve 2019-07-02 Evi hospitaliza d 02-12 11:45:00 Hai tion 13:30: [id number] 00 Respiratory smoker Respirator Resolve 2019-02-19 Evi y d 02-19 14:00:00 Hai 14:00: [id number] Integument knowledge/s Integument Resolve 2019-02-27 Evi kill d 02-19 11:00:00 Hai deficit: pt 14:00: [id number] 00 Respiratory nebulizer Respirator Unknown Evi treatment y 7-31 Hai in home 11:00: [id number] Respiratory smoker Respirator Resolve 2019-03-05 Evi y d 8 13:00:00 Hai 13:00: [id number] 00 Respiratory lung sounds Respirator Resolve 2019-04-09 Evi deficit y d 8 14:30:00 Hai 13:00: [id number] Endo/Hugo glucose Endo/Hugo Resolve 2019-03-19 Evi tolerance d 03-05 13:30:00 Hai problem 13:00: [id number] 00 Endo/Huog knowledge/s Endo/Hugo Resolve 2019-03-19 Evi kill d 03-05 13:30:00 Hai deficit 13:00: [id number] hypo/hyperg 00 lycemia: pt Integument other wound Integument Resolve 2019-03-05 Evi present d 03-05 13:00:00 Hai 13:00: [id number] 00 Respiratory oxygen Respirator Resolve 2019-03-26 Evi treatments y d 8-13 16:55:00 Hai in home 13:00: [id number] 00 Respiratory nebulizer Respirator Resolve 2019-03-26 Evi treatment y d 8-13 16:55:00 Hai in home 13:00: [id number] 00 Respiratory oxygen Respirator Resolve 2019-04-09 Evi treatments y d 903 14:30:00 Hai in home 12:15: [id number] 00 Respiratory nebulizer Respirator Resolve 2019-04-09 Evi treatment y d 9 14:30:00 Hai in home 12:15: [id number] 00 Endo/Hugo knowledge/s Endo/Hugo Resolve 2019-06-25 Evi kill d 04-02 12:00:00 Hai deficit: pt 12:15: [id number] 00 Endo/Hugo knowledge/s Endo/Hugo Resolve 2019-06-25 Evi kill d 04-02 12:00:00 Hai deficit 12:15: [id number] hypo/hyperg 00 lycemia: pt Respiratory smoker Respirator Resolve 2019-04-09 Evi y d 04-09 14:30:00 Hai 14:30: [id number] 00 Endo/Hugo glucose Endo/Hugo Resolve 2019-04-09 Evi tolerance d 9-10 14:30:00 Hai problem 14:30: [id number] 00 Respiratory oxygen Respirator Resolve 2019-04-23 Evi treatments y d 9-16 14:15:00 Hai in home 14:00: [id number] 00 Respiratory smoker Respirator Resolve 2019-04-23 Evi y d 9-16 14:15:00 Hai 14:00: [id number] 00 Respiratory nebulizer Respirator Resolve 2019-04-23 Evi treatment y d 9-16 14:15:00 Hai in home 14:00: [id number] 00 Endo/Hugo anti-coagul Endo/Hugo Resolve 2019-04-23 Evi ation d 9- 14:15:00 Hai therapy 14:00: [id number] 00 Endo/Hugo glucose Endo/Hugo Resolve 2019-04-23 Evi tolerance d 24 14:15:00 Hai problem 14:15: [id number] 00 Respiratory lung sounds Respirator Resolve 2018-072019-05-07 Evi deficit y d 0-01 15:20:00 Hai 11:06: [id number] 00 Respiratory smoker Respirator Resolve 2018-072019-05-07 Evi y d 0-01 15:20:00 Hai 11:06: [id number] 00 Respiratory oxygen Respirator Resolve 2018-072019-05-15 Evi treatments y d 0-08 10:00:00 Hai in home 15:20: [id number] 00 Respiratory nebulizer Respirator Resolve 2018-072019-05-15 Evi treatment y d 0-08 10:00:00 Hai in home 15:20: [id number] 00 Respiratory lung sounds Respirator Resolve 2018-072019-05-15 Evi deficit y d 0-16 10:00:00 Hai 10:00: [id number] 00 Respiratory lung sounds Respirator Resolve 2018-072019-05-28 Evi deficit y d 0-23 13:15:00 Hai 09:30: [id number] 00 Respiratory oxygen Respirator Resolve 2018-072019-08-13 Evi treatments y d 0-29 10:50:00 Hai in home 13:15: [id number] 00 Respiratory nebulizer Respirator Resolve 2018-072019-08-13 Evi treatment y d 0-29 10:50:00 Hai in home 13:15: [id number] 00 Respiratory smoker Respirator Resolve 2018-072019-05-28 Evi y d 0-29 13:15:00 Hai 13:15: [id number] 00 Respiratory lung sounds Respirator Resolve 2018-072019-06-04 Evi deficit y d 1-05 12:00:00 Hai 12:00: [id number] 00 Respiratory lung sounds Respirator Resolve 2018-072019-06-25 Evi deficit y d 1-11 12:00:00 Hai 11:00: [id number] 00 Respiratory smoker Respirator Resolve 2018-072019-06-18 Evi y d 1-11 12:45:00 Hai 11:00: [id number] 00 Integument other wound Integument Resolve 2018-072019-06-18 Evi present d 1-11 12:45:00 Hai 11:00: [id number] 00 Safety fall risk Safety Resolve 2018-072019-06-25 Evi factor d 1-11 12:00:00 Hai present 11:00: [id number] 00 Respiratory smoker Respirator Resolve 2018-072019-06-25 Evi y d 1- 12:00:00 Hai 12:00: [id number] 00 Neuro anxiety Neuro/Emot Active 2018-07 Evi present ion - Hai 12:00: [id number] 00 Neuro memory Neuro/Emot Active 2018-07 Evi deficit ion - Hai needing 12:00: [id number] supervision 00 Respiratory smoker Respirator Resolve 2018-072019-07-30 Evi y d 2-03 11:00:00 Hai 11:45: [id number] 00 Respiratory lung sounds Respirator Resolve 2018-072019-07-30 Evi deficit y d 2-11 11:00:00 Hai 13:05: [id number] 00 Safety risk for Safety Resolve 2018-072019-07-10 Evi hospitaliza d 2-11 13:05:00 Hai tion 13:05: [id number] Safety risk for Safety Resolve 2018-072019-07-23 Evi [facility] d 2 11:00:00 Hai tion 15:00: [id number] 00 Safety risk for Safety Resolve 2018-072019-07-30 Evi [facility] d 11:00:00 Hai tion 11:00: [id number] 00 Safety risk for Safety Resolve 2019-08-13 Evi [facility] d 08-06 10:50:00 Hai tion 12:30: [id number] 00 Medication potential Meds Active Evi clinically 08-06 Hai significant 12:30: [id number] medication 00 issue Cardio hypertensio Cardiovasc Active Evi n ular 08-13 Hai 10:50: [id number] Respiratory knowledge/s Respirator Resolve 2019-08-13 Evi kill y d 08-13 10:50:00 Hai deficit: pt 10:50: [id number] 00 Respiratory lung sounds Respirator Resolve 2019-08-13 Evi deficit y d 08-13 10:50:00 Hai 10:50: [id number] 00 Respiratory smoker Respirator Resolve 2019-08-13 Evi y d 08-13 10:50:00 Hai 10:50: [id number] 00 Integument other wound Integument Active Evi present 08-13 Hai 10:50: [id number] 00 Neuro depressive Neuro/Emot Active Evi feelings ion 08-13 Hai present 10:50: [id number] 00 Medication knowledge/s Meds Active Evi kill 08-13 Hai deficit: pt 10:50: [id number] 00 Allergies, Adverse Reactions, Alerts Allergy Allergy Type Status Severity Reaction(s) Onset Inactive Treating Comments Name Date Date Clinician ibuprofen Base Active Unknown Nausea and Cari Ingredient vomiting 09-03 Mercado Lidopatch Medication Active Unknown Rash, Hives Cari Name ID [id number] Mercado Medications Ordered Filled Start Stop Current Ordering Indication Dosage Frequency Signature Comments Components Medication Medication Date Date Medication? Clinician (SIG) Name Name omeprazole omeprazole No Darlow 40 mg Unknown 40 mg 40 mg 2-05 Leroy DUMONT capsule,del capsule,del ayed ayed release [...] tablet 09-04 ,Leroy traMADol ER traMADol ER No Darlow 200 mg Unknown 200 mg 200 mg 09-04 ,Leroy capsule capsule 24h,extende 24h,extende d d release(25- release(25- 75) 75) methocarbam methocarbam No Darlow 500 mg Unknown ol 500 mg ol 500 mg 09-04- ,Leroy tablet tablet ProAir HFA ProAir HFA No Darlow 2 puffs Unknown 90 90 09-04 ,Leroy mcg/actuati mcg/actuati on aerosol on aerosol inhaler inhaler Pataday 0.2 Pataday 0.2 No Darlow 1 drop Unknown % eye drops % eye drops 09-04 ,Leroy senna 8.6 senna 8.6 No Darlow 8,6 mg Unknown mg tablet mg tablet 09-04 ,Leroy mupirocin 2 mupirocin 2 No Darlow 1 Unknown % topical % topical 09-04 ,Leroy ointment ointment betamethaso betamethaso No Darlow 1 Unknown ne valerate ne [...] Lantus No Darlow 6-20 Unknown U-100 U-100 09-04 ,Leroy units Insulin 100 Insulin 100 unit/mL unit/mL subcutaneou subcutaneou s solution s solution benzonatate benzonatate No Darlow 200 mg Unknown 200 mg 200 mg 09-04 ,Leroy capsule capsule Symbicort Symbicort No Darlow 2 puffs Unknown 160 mcg-4.5 160 mcg-4.5 09-04 ,Leroy mcg/actuati mcg/actuati on HFA on HFA aerosol aerosol inhaler inhaler FLUoxetine FLUoxetine No Darlow 40 mg Unknown 40 mg 40 mg 09-04 ,Leroy capsule capsule oxygen oxygen No Darlow 2 liter Unknown permeable permeable 09-04 ,Leroy lens latrine cleaner latrine cleaner liquid liquid FLUoxetine FLUoxetine No Darlow [...] mg capsule 08-06 Hugo DUMONT amoxicillin amoxicillin No Darlow 875/125 Unknown 875 875 08-16 ,Leroy mg mg-potassiu mg-potassiu m m clavulanate clavulanate 125 mg 125 mg tablet tablet cephALEXin cephALEXin 2016- No Darlow 500mg Unknown 500 mg 500 mg 08-26 ,Leroy capsule capsule lyrica lyrica No [place] 100mg Unknown 09-05 Hugo DUMONT [...] solution s solution Nicorette 2 Nicorette 2 2016-07 No Darlow 1 piece Unknown mg gum [...] 1 mg tablet 1 mg tablet 11-20 ,Leroy triamcinolo triamcinolo 2018- No Darlow Unknown Unknown ne ne 01-08 ,Leroy acetonide acetonide 0.025 % 0.025 % topical topical cream cream Lyrica 75 Lyrica 75 2018- No [place] Unknown Unknown mg capsule mg capsule 01-22 Hugo DUMONT Lyrica 100 Lyrica 100 2018- No [place] Unknown Unknown mg capsule mg capsule 02-06 Hugo DUMONT Fluocinonid Fluocinonid No Yentzer Unknown Unknown e-E 0.05 % e-E 0.05 % 01-29 ,Shravan A topical topical cream cream ketoconazol ketoconazol No Yentzer Unknown Unknown e 2 % e 2 % 01-29 ,Shravan A shampoo shampoo Lantus Lantus 2018- No Darlow Unknown Unknown U-100 U-100 02-15 ,Leroy Insulin 100 Insulin 100 unit/mL unit/mL subcutaneou subcutaneou s solution s solution metFORMIN metFORMIN Darlow Unknown Unknown 1,000 mg 1,000 mg 02-15 07-27 MD,Leroy tablet tablet Lantus Lantus No Darlow [...] DUMONT transdermal transdermal patch patch OLANZapine OLANZapine Yes Bael Unknown Unknown 10 mg 10 mg 08-20 MD,Honorio tablet tablet dexAMETHaso dexAMETHaso Yes Bael Unknown Unknown ne 4 mg ne 4 mg 08-13- MD,Honorio tablet tablet ondansetron ondansetron Yes Bael Unknown Unknown 4 mg 4 mg -20 MD,Honorio disintegrat disintegrat ing tablet ing tablet prochlorper prochlorper Yes Bael Unknown Unknown azine azine 1-20 MD,Honorio maleate 10 maleate 10 mg tablet mg tablet dexAMETHaso dexAMETHaso Yes Bael Unknown Unknown ne 4 mg ne 4 mg -14 MD,Honorio tablet tablet OLANZapine OLANZapine Yes Bael Unknown Unknown 10 mg 10 mg 1-14 MD,Honorio tablet tablet Vital Signs Vital Name Observation Time Observation Value Comments SYSTOLIC mm[Hg] 2019-08-14 18:09:53 172 mm[Hg] mm[Hg] Method: Sit SYSTOLIC mm[Hg] 2019-08-14 18:09:53 170 mm[Hg] mm[Hg] Method: Stand DIASTOLIC mm[Hg] 2019-08-14 18:09:53 80 mm[Hg] mm[Hg] Method: Sit DIASTOLIC mm[Hg] 2019-08-14 18:09:53 88 mm[Hg] mm[Hg] Method: Stand PULSE 2019-08-14 18:09:53 72 /min /min RESP RATE 2019-08-14 18:09:53 18 /min /min TEMP 2019-08-14 18:09:53 96.8 [degF] Procedures This patient has no known procedures. Plan of Care Planned Activity Planned Date Details Comments Results This patient has no known results.
--- OUTSIDE RECORDS SUMMARY | 2019-09-17 05:42 | XMS REPORT ---
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 [id number] disease, disease, unspecified unspecified Essential Essential Diagnosis Active Evi (primary) (primary) 2- Hai hypertensio hypertensio [id number] n n Other Other Diagnosis Active Evi chronic chronic 2-05 Hai pain pain [id number] 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, disorder, 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, recurrent, unspecified unspecified Gastro-esop Gastro-esop Diagnosis Active Evi hageal hageal 2- Hai reflux reflux [id number] disease disease without without esophagitis esophagitis 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 [id number] Low back Low back Diagnosis Active Evi pain pain Hai [id number] Hyperlipide Hyperlipide Diagnosis Active Evi hank, hank, Hai unspecified unspecified [id number] Hypothyroid Hypothyroid Diagnosis Active Evi ism, ism, Hai unspecified unspecified [id number] Respiratory treatments Respirator Resolve 2016-10-17 [place] ordered y d 2- 12:30:00 Son [id number] Pain frequent Pain Mgmt Resolve 2018-08-28 [place] pain d 2- 12:45:00 Son 13:13: [id number] 00 Pain knowledge/s Pain Mgmt Resolve 2015-09-09 [place] kill d 09-04 10:40:00 Son deficit: pt 13:13: [id number] 00 Pain severe pain Pain Mgmt Resolve 29 [place] d 2-05 12:45:00 Son 13:13: [id number] 00 Respiratory dyspnea Respirator Resolve 2016-10-17 [place] present y d 2- 12:30:00 Son 13:13: [id number] 00 Respiratory oxygen Respirator Resolve 2016-10-17 [place] treatments y d 2- 12:30:00 Son in home 13:13: [id number] 00 Respiratory knowledge/s Respirator Resolve 2015-09-16 [place] kill y d 2- 12:00:00 Son deficit: pt 13:13: [id number] 00 Respiratory lung sounds Respirator Resolve 2016-06-29 [place] deficit y d 2 13:03:00 Son 13:13: [id number] 00 Endo/Hugo knowledge/s Endo/Hugo Resolve 2015-09-16 [place] kill d 2- 12:00:00 Son deficit: pt 13:13: [id number] 00 Endo/Hugo diabetic Endo/Hugo Resolve 2016-06-29 [place] foot care d 2- 13:03:00 Son 13:13: [id number] 00 Nutrition knowledge/s Nutrition Resolve 2015-09-04 [place] kill d 2 13:13:00 Son deficit: pt 13:13: [id number] 00 Neuro anxiety Neuro/Emot Resolve 2016-08-02 [place] present ion d 2- 10:30:00 Son 13:13: [id number] 00 Neuro depressive Neuro/Emot Resolve 2016-08-02 Chelsea feelings ion d 2- 10:30:00 Son present 13:13: [id number] 00 Neuro knowledge/s Neuro/Emot Resolve 2015-09-16 [place] kill ion d 2- 12:00:00 Son deficit: pt 13:13: [id number] 00 Activity ADL Activity Resolve 2016-04-27 [place] assistance d 2- 11:15:00 Son required 13:13: [id number] 00 Activity knowledge/s Activity Resolve 2016-03-01 [place] kill d 2- 12:00:00 Son deficit: pt 13:13: [id number] 00 Safety fall risk Safety Resolve 2015-09-16 [place] factor d 2-05 12:00:00 Cline present 13:13: [id number] 00 Safety risk for Safety Resolve 2015-09-16 [place] hospitaliza d 2-05 12:00:00 Cline tion 13:13: [id number] 00 Medication oral med Meds Resolve 2016-08-02 [place] assistance d 2-05 10:30:00 Cline required 13:13: [id number] 00 Medication injectable Meds Resolve 2016-08-02 [place] med d 2-05 10:30:00 Cline assistance 13:13: [id number] 00 Medication knowledge/s Meds Resolve 2016-06-29 [place] kill d 2-05 13:03:00 Son deficit: pt 13:13: [id number] 00 Medication potential Meds Resolve 2016-08-02 Chelsea clinically d 2- 10:30:00 Son significant 13:13: [id number] medication 00 issue Diagnoses knowledge/s Diagnoses Active Chelsea kill - Cline deficit: pt 13:13: [id number] 00 Pain knowledge/s Pain Mgmt Resolve 2015-09-16 Cher[place] kill d 2- 12:00:00 [place] deficit: pt 12:00: [id number] 00 Safety sanitation Safety Resolve 2016-03-01 [place] hazards d 2-17 12:00:00 Abbe present 12:00: [id number] 00 Safety risk for Safety Resolve 2016-03-01 Cherrise hospitaliza d 2-18 12:00:00 [place] tion 12:15: [id number] 00 Neuro knowledge/s Neuro/Emot Resolve 2016-08-16 Cher[place] kill ion d 2- 12:45:00 [place] deficit: pt 13:29: [id number] 57 Safety structural Safety Resolve 2016-03-01 Cher[place] barriers d 2- 12:00:00 [place] present 13:29: [id number] 57 Respiratory knowledge/s Respirator Resolve 2016-04-27 [place] kill y d 10-27 11:15:00 Son deficit: cg 09:40: [id number] 00 Pain frequent Pain Mgmt Resolve 2018-08-28 [place] pain d 11-03 12:45:00 Son 13:04: [id number] 00 Pain knowledge/s Pain Mgmt Resolve 2016-02-24 [place] kill d 11-03 13:35:00 Son deficit: pt 13:04: [id number] 00 Respiratory knowledge/s Respirator Resolve 2016-04-27 [place] kill y d 11-03 11:15:00 Son deficit: pt 13:04: [id number] 00 Safety fall risk Safety Resolve 2016-03-01 [place] factor d 11-03 12:00:00 Son present 13:04: [id number] 00 Endo/Hugo insulin Endo/Hugo Resolve 2016-10-17 [place] admn d 11-24 12:30:00 Son dependence 10:48: [id number] 00 Safety safety Safety Resolve 2016-03-01 [place] hazards d 12-22 12:00:00 Cline present 09:15: [id number] 00 Elimination constipatio Eliminatio Resolve 2016-03-01 [place] n n d 12-29 12:00:00 Son 13:33: [id number] 00 IV IV present IV Resolve 2016-01-26 Chelsea d 12-29 11:50:00 Son 13:33: [id number] 00 Integument skin Integument Resolve 2016-04-27 Anna integrity d 01-25 11:15:00 Regeczi risk 11:50: [id number] 00 Nutrition knowledge/s Nutrition Resolve 2016-03-01 [place] kill d 02-26 12:00:00 Abbe deficit: pt 10:00: [id number] 00 Pain frequent Pain Mgmt Resolve 2018-08-28 [place] pain d 03-01 12:45:00 Son 12:00: [id number] 00 Nutrition knowledge/s Nutrition Resolve 2016-04-06 Neida kill d 03-23 14:54:00 [place] deficit: pt 13:30: RN 00 Endo/Hugo insulin Endo/Hugo Resolve 2016-10-17 [place] admn d 04-06 12:30:00 Cline dependence 14:54: [id number] 00 Nutrition changing Nutrition Resolve 2016-05-10 Chelsea weight/appe d 04-27 11:45:00 Son tite 11:15: [id number] 00 Nutrition knowledge/s Nutrition Resolve 2016-04-27 [place] kill d 04-27 11:15:00 Son deficit: pt 11:15: [id number] 00 Cardio hypertensio Cardiovasc Resolve 2016-09-20 Evi n ular d 08-02 10:00:00 Hai 10:30: [id number] 00 Respiratory lung sounds Respirator Resolve 2016-08-25 Evi deficit y d 08-02 10:30:00 Hai 10:30: [id number] 00 Respiratory CPAP Respirator Resolve 2016-10-17 Evi treatments y d 08-02 12:30:00 Hai in home 10:30: [id number] 00 Respiratory dyspnea Respirator Resolve 2016-10-17 Evi present y d 08-02 12:30:00 Hai 10:30: [id number] 00 Respiratory oxygen Respirator Resolve 2016-10-17 Evi treatments y d 08-02 12:30:00 Hai in home 10:30: [id number] 00 Integument knowledge/s Integument Resolve 2016-08-16 Evi kill d 08-02 12:45:00 Hai deficit: pt 10:30: [id number] 00 Medication knowledge/s Meds Resolve 2016-08-25 Evi kill d 08-02 10:30:00 Hai deficit: pt 10:30: [id number] 00 Neuro anxiety Neuro/Emot Resolve 2016-10-17 Evi present ion d 08-16 12:30:00 Hai 12:45: [id number] 00 Integument knowledge/s Integument Resolve 2016-08-25 Evi kill d 08-25 10:30:00 Hai deficit: pt 10:30: [id number] 00 Nutrition nutritional Nutrition Resolve 2016-08-25 Evi restriction d 08-25 10:30:00 Hai s 10:30: [id number] 00 Neuro knowledge/s Neuro/Emot Resolve 2016-2016-08-25 Evi kill ion d 08-25 10:30:00 Hai deficit: pt 10:30: [id number] 00 Medication oral med Meds Resolve 2016-08-25 Evi assistance d 08-25 10:30:00 Hai required 10:30: [id number] 00 Respiratory oxygen Respirator Unknown Evi treatments y 2-06 Hai in home 14:30: [id number] 00 Integument knowledge/s Integument Resolve 2016-09-05 Evi kill d 09-05 14:30:00 Hai deficit: pt 14:30: [id number] 00 Medication oral med Meds Resolve 2016-10-17 Evi assistance d 09-05 12:30:00 Hai required 14:30: [id number] 00 Medication knowledge/s Meds Resolve 2016-12-05 Evi kill d 09-05 17:00:00 Hai deficit: pt 14:30: [id number] 00 Respiratory lung sounds Respirator Resolve 2016-09-20 Evi deficit y d 2- 10:00:00 Hai 10:00: [id number] 00 Integument knowledge/s Integument Resolve 2016-10-17 Evi kill d 2- 12:30:00 Hai deficit: pt 10:00: [id number] 00 Integument other wound Integument Resolve 2016-10-17 Evi present d 2- 12:30:00 Hai 10:00: [id number] 00 Respiratory lung sounds Respirator Resolve 2018-10-09 Evi deficit y d 3-06 12:40:00 Hai 15:00: [id number] 00 Respiratory CPAP Respirator Unknown Evi treatments y 3-06 Hai in home 15:00: [id number] 00 Respiratory smoker Respirator Resolve 2016-10-17 Evi y d 3-06 12:30:00 Hai 15:00: [id number] 00 Respiratory nebulizer Respirator Unknown Evi treatment y 3-06 Hai in home 15:00: [id number] 00 Respiratory dyspnea Respirator Resolve 2016-11-07 Evi present y d 10-25 12:20:00 Hai 14:15: [id number] 00 Respiratory oxygen Respirator Unknown Evi treatments y 10-25 Hai in home 14:15: [id number] 00 Respiratory smoker Respirator Resolve 2016-11-07 Evi y d 10-25 12:20:00 Hai 14:15: [id number] 00 Integument other wound Integument Resolve 2016-10-25 Evi present d 10-25 14:15:00 Hai 14:15: [id number] 00 Nutrition nutritional Nutrition Resolve 2016-11-07 Evi restriction d 10-25 12:20:00 Hai s 14:15: [id number] 00 Neuro anxiety Neuro/Emot Resolve 2016-11-07 Evi present ion d 10-25 12:20:00 Hai 14:15: [id number] 00 Medication oral med Meds Resolve 2016-12-05 Evi assistance d 10-25 17:00:00 Hai required 14:15: [id number] 00 Medication potential Meds Resolve 2016-12-05 Evi clinically d 11-07 17:00:00 Hai significant 12:20: [id number] medication 00 issue Respiratory dyspnea Respirator Resolve 2016-11-21 Evi present y d 11-14 13:30:00 Hai 14:00: [id number] 00 Respiratory oxygen Respirator Unknown Evi treatments y 11-21 Hai in home 13:30: [id number] 00 Respiratory lung sounds Respirator Resolve 2018-10-09 Evi deficit y d 11-21 12:40:00 Hai 13:30: [id number] 00 Respiratory smoker Respirator Resolve 2016-11-21 Evi y d 11-21 13:30:00 Hai 13:30: [id number] 00 Respiratory nebulizer Respirator Unknown Evi treatment y 11-21 Hai in home 13:30: [id number] 00 Neuro anxiety Neuro/Emot Resolve 2016-12-25 Evi present ion d 11-21 13:30:00 Hai 13:30: [id number] 00 Respiratory oxygen Respirator Resolve 2018-09-18 Evi treatments y d 12-05 13:30:00 Hai in home 17:00: [id number] 00 Respiratory smoker Respirator Resolve 2016-12-05 Evi y d 12-05 17:00:00 Hai 17:00: [id number] 00 Respiratory nebulizer Respirator Resolve 2018-09-18 Evi treatment y d 12-05 13:30:00 Hai in home 17:00: [id number] 00 Endo/Hugo knowledge/s Endo/Hugo Resolve 2016-12-19 Evi kill d 12-05 13:00:00 Hai deficit: pt 17:00: [id number] 00 Medication knowledge/s Meds Resolve 2016-12-25 Evi kill d 12-19 13:30:00 Hai deficit: pt 13:00: [id number] 00 Respiratory dyspnea Respirator Resolve 2017-02-27 Evi present y d 12-25 12:30:00 Hai 13:30: [id number] 00 Integument other wound Integument Resolve 2017-01-02 Evi present d 12-25 11:50:00 Hai 13:30: [id number] 00 Medication knowledge/s Meds Resolve 2016-12-25 Evi kill d 12-25 13:30:00 Hia deficit: pt 13:30: [id number] 00 Respiratory smoker Respirator Resolve 2017-01-16 Evi y d 01-16 15:00:00 Hai 15:00: [id number] 00 Respiratory lung sounds Respirator Resolve 2017-02-13 Evi deficit y d 02-13 12:45:00 Hai 12:45: [id number] 00 Respiratory smoker Respirator Resolve 2017-02-13 Evi y d 02-13 12:45:00 Hai 12:45: [id number] 00 Respiratory smoker Respirator Resolve 2017-02-27 Evi y d 02-24 12:30:00 Hai 13:00: [id number] 00 Integument other wound Integument Resolve 2017-02-24 Evi present d 02-24 13:00:00 Hai 13:00: [id number] 00 Nutrition nutritional Nutrition Resolve 2017-04-03 [place]me[place] restriction d - 12:25:00 Eric garcia 13:00: an 00 Integument other wound Integument Resolve 2017-05-01 Evi present d 04-25 12:15:00 Hai 13:00: [id number] 00 Neuro depressive Neuro/Emot Resolve 2017-05-01 Evi feelings ion d 04-25 12:15:00 Hai present 13:00: [id number] 00 Neuro anxiety Neuro/Emot Resolve 2017-05-01 Evi present ion d 04-25 12:15:00 Hai 13:00: [id number] 00 Respiratory lung sounds Respirator Resolve 2016-072017-05-01 Evi deficit y d 0- 12:15:00 Hai 12:15: [id number] 00 Respiratory smoker Respirator Resolve 2016-072017-06-12 Evi y d 1- 11:14:00 Hai 11:14: [id number] 00 Respiratory smoker Respirator Resolve 2016-072017-06-21 Evi y d 08-21 11:15:00 Hai 11:15: [id number] 00 Integument other wound Integument Resolve 2016-072017-06-21 Evi present d 08-21 11:15:00 Hai 11:15: [id number] 00 Respiratory lung sounds Respirator Resolve 2016-072017-06-26 Evi deficit y d 08-26 12:15:00 Hai 12:15: [id number] 00 Respiratory lung sounds Respirator Unknown 2016-07 Evi deficit y 2-11 Hai 12:20: [id number] 00 Respiratory smoker Respirator Resolve 2016-072017-08-03 Evi y d 2-28 11:30:00 Hai 12:10: [id number] 00 Respiratory lung sounds Respirator Resolve 2017-08-03 Evi deficit y d 1- 11:30:00 Hai 11:30: [id number] 00 Respiratory lung sounds Respirator Resolve 2017-08-07 Evi deficit y d 1- 10:20:00 Hai 10:20: [id number] 00 Respiratory smoker Respirator Resolve 2017-08-07 Evi y d 1-08 10:20:00 Hai 10:20: [id number] 00 Respiratory lung sounds Respirator Resolve 2017-2017-08-14 Evi deficit y d 1-15 11:30:00 Hai 11:30: [id number] 00 Respiratory smoker Respirator Resolve 2017-2017-08-14 Evi y d 1-15 11:30:00 Hai 11:30: [id number] 00 Integument other wound Integument Resolve 2017-2017-08-21 Evi present d 1- 10:50:00 Hai 10:50: [id number] 00 Respiratory smoker Respirator Resolve 2017-2017-09-04 Evi y d 1- 12:40:00 Hai 12:30: [id number] 00 Respiratory lung sounds Respirator Resolve 2017-09-11 Evi deficit y d 2-12 13:00:00 Hai 13:00: [id number] 00 Respiratory lung sounds Respirator Resolve 2017-09-20 Evi deficit y d 2-21 11:15:00 Hai 11:15: [id number] 00 Respiratory lung sounds Respirator Resolve 2017-2017-09-27 Evi deficit y d 2-28 11:45:00 Hai 11:45: [id number] 00 Respiratory lung sounds Respirator Resolve 2017-10-18 Evi deficit y d 3-21 11:00:00 Hai 11:00: [id number] 00 Respiratory smoker Respirator Resolve 2017-10-18 Evi y d 3-21 11:00:00 Hai 11:00: [id number] 00 Integument other wound Integument Resolve 2017-10-25 Evi present d 3-21 11:00:00 Hai 11:00: [id number] 00 Respiratory lung sounds Respirator Resolve 2018-10-09 Evi deficit y d 4-10 12:40:00 Hai 14:45: [id number] 00 Respiratory smoker Respirator Resolve 2017-2017-11-15 Evi y d 4-18 11:00:00 Hai 11:00: [id number] 00 Respiratory lung sounds Respirator Resolve 2017-2018-10-09 Evi deficit y d 4-25 12:40:00 Hai 13:40: [id number] 00 Respiratory smoker Respirator Resolve 2017-11-22 Evi y d 11-22 13:40:00 Hai 13:40: [id number] 00 Respiratory smoker Respirator Resolve 2017-12-06 Evi y d 12-06 13:15:00 Hai 13:15: [id number] 00 Respiratory lung sounds Respirator Resolve 2017-12-13 Evi deficit y d 12-13 13:00:00 Hai 13:00: [id number] 00 Respiratory lung sounds Respirator Resolve 2017-12-26 Evi deficit y d 12-20 12:05:00 Hai 13:15: [id number] 00 Integument other wound Integument Resolve 2017-12-26 Evi present d 12-20 12:05:00 Hai 13:15: [id number] 00 Respiratory lung sounds Respirator Resolve 2018-01-03 Evi deficit y d 06 12:38:00 Hai 12:38: [id number] 00 Respiratory lung sounds Respirator Resolve 2018-10-09 Evi deficit y d 6-13 12:40:00 Hai 15:00: [id number] 00 Respiratory smoker Respirator Resolve 2018-01-10 Evi y d 6-13 15:00:00 Hai 15:00: [id number] 00 Respiratory lung sounds Respirator Resolve 2018-01-24 Evi deficit y d 6- 13:10:00 Hai 13:10: [id number] 00 Nutrition nutritional Nutrition Resolve 2019-08-13 Evi restriction d 6 10:50:00 Hai s 13:10: [id number] 00 Safety sanitation Safety Resolve 2018-06-05 Evi hazards d 6- 10:35:00 Hai present 13:10: [id number] 00 Safety fall risk Safety Resolve 2018-02-19 Evi factor d 6 14:02:00 Hai present 13:10: [id number] 00 Safety risk for Safety Resolve 2018-10-30 Evi hospitaliza d 01-24 13:06:00 Hai tion 13:10: [id number] 00 Safety structural Safety Resolve 2018-02-19 Evi barriers d 01-24 14:02:00 Hai present 13:10: [id number] 00 Safety safety Safety Resolve 2018-02-19 Evi hazards d 01-24 14:02:00 Hai present 13:10: [id number] 00 Medication oral med Meds Active Evi assistance 01-24 Hai required 13:10: [id number] 00 Medication injectable Meds Active Evi med 01-24 Hai assistance 13:10: [id number] required 00 Respiratory lung sounds Respirator Resolve 2018-10-09 Evi deficit y d 01-29 12:40:00 Hai 13:45: [id number] 00 Respiratory smoker Respirator Resolve 2018-02-07 Evi y d 01-29 13:00:00 Hai 13:45: [id number] 00 Respiratory smoker Respirator Resolve 2018-03-01 Evi y d 02-19 11:42:00 Hai 14:02: [id number] 00 Integument other wound Integument Resolve 2018-03-21 Evi present d 02-19 15:30:00 Hai 14:02: [id number] 00 Respiratory smoker Respirator Resolve 2018-03-28 Evi y d 03-28 11:36:00 Hai 11:36: [id number] 00 Respiratory smoker Respirator Resolve 2018-04-03 Evi y d 04-03 14:00:00 Hai 14:00: [id number] 00 Respiratory smoker Respirator Resolve 2018-04-10 Evi y d 04-10 14:40:00 Hai 14:40: [id number] 00 Integument other wound Integument Resolve 2018-04-24 Evi present d 04-18 10:16:00 Hai 11:00: [id number] 00 Respiratory smoker Respirator Resolve 2017-072018-05-16 Evi y d 0 14:20:00 Hai 10:50: [id number] 00 Respiratory smoker Respirator Resolve 2017-072018-05-29 Evi y d 11:30:00 Hai 11:30: [id number] 00 Respiratory smoker Respirator Resolve 2017-072018-06-05 Evi y d 08-05 10:35:00 Hai 10:35: [id number] 00 Safety safety Safety Resolve 2017-072018-06-05 Evi hazards d 08-05 10:35:00 Hai present 10:35: [id number] 00 Integument other wound Integument Resolve 2017-072018-06-26 Evi present d 08-19 15:15:00 Hai 11:12: [id number] 00 Respiratory smoker Respirator Resolve 2017-072018-06-26 Evi y d 08-26 15:15:00 Hai 15:15: [id number] 00 Respiratory smoker Respirator Resolve 2017-072018-07-03 Evi y d 09-03 11:13:00 Hai 11:13: [id number] 00 Respiratory smoker Respirator Resolve 2017-072018-07-17 Evi y d 09-10 11:38:00 Hai 11:20: [id number] 00 Respiratory smoker Respirator Resolve 2017-072018-07-23 Evi y d 09-23 10:00:00 Hai 10:00: [id number] 00 Integument other wound Integument Resolve 2018-08-14 Evi present d 08-14 15:44:00 Hai 15:44: [id number] 00 Pain frequent Pain Mgmt Resolve 2018-08-28 Evi pain d 08-25 12:45:00 Hai 09:33: [id number] 56 Pain severe pain Pain Mgmt Resolve 2018-08-28 Evi d 08-25 12:45:00 Hai 09:33: [id number] 56 Integument other wound Integument Resolve 2018-08-28 Evi present d 08-25 12:45:00 Hai 09:33: [id number] 56 Respiratory smoker Respirator Resolve 2018-08-28 Evi y d 08-28 12:45:00 Hai 12:45: [id number] 00 Respiratory smoker Respirator Resolve 2018-09-04 Evi y d 09-04 11:30:00 Hai 11:30: [id number] 00 Respiratory smoker Respirator Resolve 2018-09-18 Evi y d 09-10 13:30:00 Hai 16:40: [id number] 00 Pain severe pain Pain Mgmt Resolve 2018-09-25 Evi d 2-19 10:30:00 Hai 13:30: [id number] 00 Neuro anxiety Neuro/Emot Unknown Evi present ion 09-18 Hai 13:30: [id number] 00 Respiratory oxygen Respirator Resolve 2018-10-16 Evi treatments y d 3-05 11:45:00 Hai in home 10:45: [id number] 00 Respiratory smoker Respirator Resolve 2018-10-09 Evi y d 3-05 12:40:00 Hai 10:45: [id number] 00 Respiratory nebulizer Respirator Resolve 2018-10-16 Evi treatment y d - 11:45:00 Hai in home 10:45: [id number] 00 Respiratory lung sounds Respirator Resolve 2018-10-16 Evi deficit y d 3 11:45:00 Hai 11:45: [id number] 00 Respiratory smoker Respirator Resolve 2018-10-16 Evi y d 3 11:45:00 Hai 11:45: [id number] 00 Integument other wound Integument Resolve 2018-10-23 Evi present d 10-16 11:20:00 Hai 11:45: [id number] 00 Respiratory nebulizer Respirator Resolve 2018-10-23 Evi treatment y d 10-23 11:20:00 Hai in home 11:20: [id number] 00 Safety safety Safety Resolve 2018-10-23 Evi hazards d 10-23 11:20:00 Hai present 11:20: [id number] 00 Respiratory lung sounds Respirator Unknown Evi deficit y 10-30 Hai 13:06: [id number] 00 Respiratory oxygen Respirator Resolve 2018-11-20 Evi treatments y d 11-06 10:35:00 Hai in home 11:31: [id number] 00 Respiratory smoker Respirator Resolve 2018-2018-11-06 Evi y d 11-06 11:31:00 Hai 11:31: [id number] 00 Respiratory nebulizer Respirator Resolve 2018-11-20 Evi treatment y d 11-06 10:35:00 Hai in home 11:31: [id number] 00 Safety risk for Safety Resolve 2018-11-12 Evi hospitaliza d 11-06 10:00:00 Hai tion 11:31: [id number] 00 Respiratory smoker Respirator Resolve 2018-11-20 Evi y d 11-12 10:35:00 Hai 10:00: [id number] 00 Respiratory lung sounds Respirator Resolve 2018-11-20 Evi deficit y d 11-20 10:35:00 Hai 10:35: [id number] 00 Safety risk for Safety Resolve 2018-11-27 Evi hospitaliza d 11-20 11:00:00 Hai tion 10:35: [id number] 00 Pain severe pain Pain Mgmt Resolve 2018-12-04 Evi d 11-27 11:35:00 Hai 11:00: [id number] 00 Respiratory oxygen Respirator Resolve 2018-12-12 Evi treatments y d 11-27 09:08:00 Hai in home 11:00: [id number] 00 Respiratory lung sounds Respirator Resolve 2018-12-04 Evi deficit y d 11-27 11:35:00 Hai 11:00: [id number] 00 Respiratory nebulizer Respirator Resolve 2018-12-12 Evi treatment y d 11-27 09:08:00 Hai in home 11:00: [id number] 00 Respiratory smoker Respirator Resolve 2018-12-04 Evi y d 12-04 11:35:00 Hai 11:35: [id number] 00 Safety risk for Safety Resolve 2018-12-12 Evi hospitaliza d 12-04 09:08:00 Hai tion 11:35: [id number] 00 Cardio hypertensio Cardiovasc Resolve 2018-12-18 Evi n ular d 12-12 14:00:00 Hai 09:08: [id number] 00 Respiratory lung sounds Respirator Resolve 2018-12-12 Evi deficit y d 12-12 09:08:00 Hai 09:08: [id number] 00 Respiratory smoker Respirator Resolve 2018-12-12 Evi y d 5-15 09:08:00 Hai 09:08: [id number] 00 Integument other wound Integument Resolve 2018-12-18 Evi present d 5-15 14:00:00 Hai 09:08: [id number] 00 Safety risk for Safety Resolve 2019-01-01 Evi hospitaliza d 12-18 13:20:00 Hai tion 14:00: [id number] 00 Cardio hypertensio Cardiovasc Resolve 2018-2019-01-01 Evi n ular d 12-25 13:20:00 Hai 10:30: [id number] 00 Respiratory oxygen Respirator Resolve 2018-2019-01-08 Evi treatments y d 12-25 11:00:00 Hai in home 10:30: [id number] 00 Respiratory lung sounds Respirator Resolve 2018-2019-01-01 Evi deficit y d 12-25 13:20:00 Hai 10:30: [id number] 00 Respiratory nebulizer Respirator Resolve 2019-01-08 Evi treatment y d 12-25 11:00:00 Hai in home 10:30: [id number] 00 Cardio hypertensio Cardiovasc Resolve 2019-01-15 Evi n ular d - 12:05:00 Hai 11:00: [id number] 00 Respiratory smoker Respirator Resolve 2019-01-08 Evi y d 6- 11:00:00 Hai 11:00: [id number] 00 Respiratory lung sounds Respirator Resolve 2018-2019-01-08 Evi deficit y d 6- 11:00:00 Hai 11:00: [id number] 00 Safety risk for Safety Resolve 2019-01-15 Evi hospitaliza d - 12:05:00 Hai tion 11:00: [id number] 00 Respiratory lung sounds Respirator Unknown Evi deficit y 6 Hai 12:05: [id number] 00 Respiratory nebulizer Respirator Resolve 2018-2019-01-22 Evi treatment y d 6- 11:45:00 Hai in home 12:05: [id number] 00 Respiratory oxygen Respirator Resolve 2018-2019-01-22 Evi treatments y d 6 11:45:00 Hai in home 11:45: [id number] 00 Respiratory smoker Respirator Resolve 2019-01-22 Evi y d 6 11:45:00 Hai 11:45: [id number] 00 Respiratory lung sounds Respirator Resolve 2018-2019-02-05 Evi deficit y d 01-29 11:30:00 Hai 11:40: [id number] 00 Respiratory smoker Respirator Resolve 2019-02-05 Evi y d 01-29 11:30:00 Hai 11:40: [id number] 00 Respiratory nebulizer Respirator Resolve 2019-02-05 Evi treatment y d 01-29 11:30:00 Hai in home 11:40: [id number] 00 Pain severe pain Pain Mgmt Resolve 2019-02-12 Evi d 02-08 13:30:00 Hai 16:30: [id number] 00 Respiratory oxygen Respirator Resolve 2019-02-19 Evi treatments y d 02-12 14:00:00 Hai in home 13:30: [id number] 00 Respiratory nebulizer Respirator Resolve 2019-02-19 Evi treatment y d 02-12 14:00:00 Hai in home 13:30: [id number] 00 Integument other wound Integument Resolve 2019-02-12 Evi present d 02-12 13:30:00 Hai 13:30: [id number] 00 Safety fall risk Safety Resolve 2019-02-12 Evi factor d 02-12 13:30:00 Hai present 13:30: [id number] 00 Safety risk for Safety Resolve 2019-07-02 Evi hospitaliza d 02-12 11:45:00 Hai tion 13:30: [id number] 00 Respiratory smoker Respirator Resolve 2019-02-19 Evi y d 02-19 14:00:00 Hai 14:00: [id number] 00 Integument knowledge/s Integument Resolve 2019-02-27 Evi kill d 02-19 11:00:00 Hai deficit: pt 14:00: [id number] 00 Respiratory nebulizer Respirator Unknown Evi treatment y 7-31 Hai in home 11:00: [id number] 00 Respiratory smoker Respirator Resolve 2019-03-05 Evi y d 8 13:00:00 Hai 13:00: [id number] 00 Respiratory lung sounds Respirator Resolve 2019-04-09 Evi deficit y d 8 14:30:00 Hai 13:00: [id number] 00 Endo/Hugo glucose Endo/Hugo Resolve 2019-03-19 Evi tolerance d 03-05 13:30:00 Hai problem 13:00: [id number] 00 Endo/Hugo knowledge/s Endo/Hugo Resolve 2019-03-19 Evi kill d 03-05 13:30:00 Hai deficit 13:00: [id number] hypo/hyperg 00 lycemia: pt Integument other wound Integument Resolve 2019-03-05 Evi present d 03-05 13:00:00 Hai 13:00: [id number] 00 Respiratory oxygen Respirator Resolve 2019-03-26 Evi treatments y d 8-13 16:55:00 Hai in home 13:00: [id number] 00 Respiratory nebulizer Respirator Resolve 2019-03-26 Evi treatment y d 8-13 16:55:00 Hai in home 13:00: [id number] 00 Respiratory oxygen Respirator Resolve 2019-04-09 Evi treatments y d 903 14:30:00 Hai in home 12:15: [id number] 00 Respiratory nebulizer Respirator Resolve 2019-04-09 Evi treatment y d 9 14:30:00 Hai in home 12:15: [id number] 00 Endo/Hugo knowledge/s Endo/Hugo Resolve 2019-06-25 Evi kill d 04-02 12:00:00 Hai deficit: pt 12:15: [id number] 00 Endo/Hugo knowledge/s Endo/Hugo Resolve 2019-06-25 Evi kill d 04-02 12:00:00 Hai deficit 12:15: [id number] hypo/hyperg 00 lycemia: pt Respiratory smoker Respirator Resolve 2019-04-09 Evi y d 04-09 14:30:00 Hai 14:30: [id number] 00 Endo/Hugo glucose Endo/Hugo Resolve 2019-04-09 Evi tolerance d 9-10 14:30:00 Hai problem 14:30: [id number] 00 Respiratory oxygen Respirator Resolve 2019-04-23 Evi treatments y d 9-16 14:15:00 Hai in home 14:00: [id number] 00 Respiratory smoker Respirator Resolve 2019-04-23 Evi y d 9-16 14:15:00 Hai 14:00: [id number] 00 Respiratory nebulizer Respirator Resolve 2019-04-23 Evi treatment y d 9-16 14:15:00 Hai in home 14:00: [id number] 00 Endo/Hugo anti-coagul Endo/Hugo Resolve 2019-04-23 Evi ation d 9- 14:15:00 Hai therapy 14:00: [id number] 00 Endo/Hugo glucose Endo/Hugo Resolve 2019-04-23 Evi tolerance d 24 14:15:00 Hai problem 14:15: [id number] 00 Respiratory lung sounds Respirator Resolve 2018-072019-05-07 Evi deficit y d 0-01 15:20:00 Hai 11:06: [id number] 00 Respiratory smoker Respirator Resolve 2018-072019-05-07 Evi y d 0-01 15:20:00 Hai 11:06: [id number] 00 Respiratory oxygen Respirator Resolve 2018-072019-05-15 Evi treatments y d 0-08 10:00:00 Hai in home 15:20: [id number] 00 Respiratory nebulizer Respirator Resolve 2018-072019-05-15 Evi treatment y d 0-08 10:00:00 Hai in home 15:20: [id number] 00 Respiratory lung sounds Respirator Resolve 2018-072019-05-15 Evi deficit y d 0-16 10:00:00 Hai 10:00: [id number] 00 Respiratory lung sounds Respirator Resolve 2018-072019-05-28 Evi deficit y d 0-23 13:15:00 Hai 09:30: [id number] 00 Respiratory oxygen Respirator Resolve 2018-072019-08-13 Evi treatments y d 0-29 10:50:00 Hai in home 13:15: [id number] 00 Respiratory nebulizer Respirator Resolve 2018-072019-08-13 Evi treatment y d 0-29 10:50:00 Hai in home 13:15: [id number] 00 Respiratory smoker Respirator Resolve 2018-072019-05-28 Evi y d 0-29 13:15:00 Hai 13:15: [id number] 00 Respiratory lung sounds Respirator Resolve 2018-072019-06-04 Evi deficit y d 1-05 12:00:00 Hai 12:00: [id number] 00 Respiratory lung sounds Respirator Resolve 2018-072019-06-25 Evi deficit y d 1-11 12:00:00 Hai 11:00: [id number] 00 Respiratory smoker Respirator Resolve 2018-072019-06-18 Evi y d 1-11 12:45:00 Hai 11:00: [id number] 00 Integument other wound Integument Resolve 2018-072019-06-18 Evi present d 1-11 12:45:00 Hai 11:00: [id number] 00 Safety fall risk Safety Resolve 2018-072019-06-25 Evi factor d 1-11 12:00:00 Hai present 11:00: [id number] 00 Respiratory smoker Respirator Resolve 2018-072019-06-25 Evi y d 1- 12:00:00 Hai 12:00: [id number] 00 Neuro anxiety Neuro/Emot Active 2018-07 Evi present ion - Hai 12:00: [id number] 00 Neuro memory Neuro/Emot Active 2018-07 Evi deficit ion - Hai needing 12:00: [id number] 00 Respiratory smoker Respirator Resolve 2018-072019-07-30 Evi y d 2-03 11:00:00 Hai 11:45: [id number] 00 Respiratory lung sounds Respirator Resolve 2018-072019-07-30 Evi deficit y d 2-11 11:00:00 Hai 13:05: [id number] 00 Safety risk for Safety Resolve 2018-072019-07-10 Evi hospitaliza d 2-11 13:05:00 Hai tion 13:05: [id number] 00 Safety risk for Safety Resolve 2018-072019-07-23 Evi [facility] d 2 11:00:00 Hai tion 15:00: [id number] 00 Safety risk for Safety Resolve 2018-072019-07-30 Evi [facility] d 11:00:00 Hai tion 11:00: [id number] 00 Safety risk for Safety Resolve 2019-08-13 Evi [facility] d 08-06 10:50:00 Hai tion 12:30: [id number] 00 Medication potential Meds Active Evi clinically 08-06 Hai significant 12:30: [id number] medication 00 issue Cardio hypertensio Cardiovasc Active Evi n ular 08-13 Hai 10:50: [id number] 00 Respiratory knowledge/s Respirator Resolve 2019-08-13 Evi kill y d 08-13 10:50:00 Hai deficit: pt 10:50: [id number] 00 Respiratory lung sounds Respirator Resolve 2019-08-13 Evi deficit y d 08-13 10:50:00 Hai 10:50: [id number] 00 Respiratory smoker Respirator Resolve 2019-08-13 Evi y d 08-13 10:50:00 Hai 10:50: [id number] 00 Integument other wound Integument Active Evi present 08-13 Hai 10:50: [id number] 00 Neuro depressive Neuro/Emot Active Evi feelings ion 08-13 Hai present 10:50: [id number] 00 Medication knowledge/s Meds Active Evi kill 08-13 Hai deficit: pt 10:50: [id number] 00 Allergies, Adverse Reactions, Alerts Allergy Allergy [...] liter Unknown permeable permeable 09-04 ,Leroy lens sewer pipe cleaner spool cleaner liquid liquid FLUoxetine FLUoxetine No Darlow [...] Lantus No Darlow Unknown Unknown U-100 U-100 7- MD,Leroy Insulin 100 Insulin 100 unit/mL unit/mL subcutaneou subcutaneou s solution s solution metFORMIN metFORMIN No Darlow Unknown Unknown 1,000 mg 1,000 mg 7 MD,Leroy tablet tablet Aspir-Low Aspir-Low No Darlow Unknown Unknown 81 mg 81 mg 8-06 MD,Leroy tablet,anna tablet,anna yed release yed release Lyrica 150 Lyrica 150 No [place] Unknown Unknown mg capsule mg capsule 9-16 Hugo DUMONT Spiriva Spiriva 2018-07 Yes Samantha Unknown Unknown Respimat Respimat 1-11 Miguel DUMONTCitlali 2.5 2.5 mcg/actuati mcg/actuati on solution on [...]
--- OUTSIDE RECORDS SUMMARY | 2019-09-17 05:42 | XMS REPORT ---
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 [id number] disease, disease, unspecified unspecified Essential Essential Diagnosis Active Evi (primary) (primary) 2- Hai hypertensio hypertensio [id number] n n Other Other Diagnosis Active Evi chronic chronic 2-05 Hai pain pain [id number] 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, disorder, 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, recurrent, unspecified unspecified Gastro-esop Gastro-esop Diagnosis Active Evi hageal hageal 2- Hai reflux reflux [id number] disease disease without without esophagitis esophagitis 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 [id number] Low back Low back Diagnosis Active Evi pain pain Hai [id number] Hyperlipide Hyperlipide Diagnosis Active Evi hank, hank, Hai unspecified unspecified [id number] Hypothyroid Hypothyroid Diagnosis Active Evi ism, ism, Hai unspecified unspecified [id number] Respiratory treatments Respirator Resolve 2016-10-17 [place] ordered y d 2- 12:30:00 Son [id number] Pain frequent Pain Mgmt Resolve 2018-08-28 [place] pain d 2- 12:45:00 Son 13:13: [id number] 00 Pain knowledge/s Pain Mgmt Resolve 2015-09-09 [place] kill d 09-04 10:40:00 Son deficit: pt 13:13: [id number] 00 Pain severe pain Pain Mgmt Resolve 29 Chelsea d 2-05 12:45:00 Son 13:13: [id number] 00 Respiratory dyspnea Respirator Resolve 2016-10-17 [place] present y d 2- 12:30:00 Son 13:13: [id number] 00 Respiratory oxygen Respirator Resolve 2016-10-17 [place] treatments y d 2- 12:30:00 Son in home 13:13: [id number] 00 Respiratory knowledge/s Respirator Resolve 2015-09-16 [place] kill y d 2- 12:00:00 Son deficit: pt 13:13: [id number] 00 Respiratory lung sounds Respirator Resolve 2016-06-29 [place] deficit y d 2 13:03:00 Son 13:13: [id number] 00 Endo/Hugo knowledge/s Endo/Hugo Resolve 2015-09-16 [place] kill d 2- 12:00:00 Son deficit: pt 13:13: [id number] 00 Endo/Hugo diabetic Endo/Hugo Resolve 2016-06-29 Chelsea foot care d 2- 13:03:00 Son 13:13: [id number] 00 Nutrition knowledge/s Nutrition Resolve 2015-09-04 [place] kill d 2 13:13:00 Son deficit: pt 13:13: [id number] 00 Neuro anxiety Neuro/Emot Resolve 2016-08-02 Chelsea present ion d 2- 10:30:00 Son 13:13: [id number] 00 Neuro depressive Neuro/Emot Resolve 2016-08-02 Chelsea feelings ion d 2- 10:30:00 Son present 13:13: [id number] 00 Neuro knowledge/s Neuro/Emot Resolve 2015-09-16 [place] kill ion d 2- 12:00:00 Son deficit: pt 13:13: [id number] 00 Activity ADL Activity Resolve 2016-04-27 [place] assistance d 2- 11:15:00 Son required 13:13: [id number] 00 Activity knowledge/s Activity Resolve 2016-03-01 [place] kill d 2- 12:00:00 Son deficit: pt 13:13: [id number] 00 Safety fall risk Safety Resolve 2015-09-16 Chelsea factor d 2-05 12:00:00 Cline present 13:13: [id number] 00 Safety risk for Safety Resolve 2015-09-16 [place] hospitaliza d 2-05 12:00:00 Cline tion 13:13: [id number] 00 Medication oral med Meds Resolve 2016-08-02 [place] assistance d 2-05 10:30:00 Cline required 13:13: [id number] 00 Medication injectable Meds Resolve 2016-08-02 [place] med d 2-05 10:30:00 Cline assistance 13:13: [id number] 00 Medication knowledge/s Meds Resolve 2016-06-29 [place] kill d 2-05 13:03:00 Son deficit: pt 13:13: [id number] 00 Medication potential Meds Resolve 2016-08-02 Chelsea clinically d 2- 10:30:00 Son significant 13:13: [id number] medication 00 issue Diagnoses knowledge/s Diagnoses Active Chelsea kill - Cline deficit: pt 13:13: [id number] 00 Pain knowledge/s Pain Mgmt Resolve 2015-09-16 Cherrise kill d 2- 12:00:00 [place] deficit: pt 12:00: [id number] 00 Safety sanitation Safety Resolve 2016-03-01 Cherrise hazards d 2-17 12:00:00 Abbe present 12:00: [id number] 00 Safety risk for Safety Resolve 2016-03-01 Cherrise hospitaliza d 2-18 12:00:00 [place] tion 12:15: [id number] 00 Neuro knowledge/s Neuro/Emot Resolve 2016-08-16 Cherrise kill ion d 2- 12:45:00 [place] deficit: pt 13:29: [id number] 57 Safety structural Safety Resolve 2016-03-01 Cherrise barriers d 2- 12:00:00 [place] present 13:29: [id number] Respiratory knowledge/s Respirator Resolve 2016-04-27 [place] kill y d 10-27 11:15:00 Son deficit: cg 09:40: [id number] 00 Pain frequent Pain Mgmt Resolve 2018-08-28 [place] pain d 11-03 12:45:00 Son 13:04: [id number] 00 Pain knowledge/s Pain Mgmt Resolve 2016-02-24 [place] kill d 11-03 13:35:00 Son deficit: pt 13:04: [id number] 00 Respiratory knowledge/s Respirator Resolve 2016-04-27 [place] kill y d 11-03 11:15:00 Son deficit: pt 13:04: [id number] 00 Safety fall risk Safety Resolve 2016-03-01 [place] factor d 11-03 12:00:00 Son present 13:04: [id number] 00 Endo/Hugo insulin Endo/Hugo Resolve 2016-10-17 [place] admn d 11-24 12:30:00 Son dependence 10:48: [id number] 00 Safety safety Safety Resolve 2016-03-01 [place] hazards d 12-22 12:00:00 Cline present 09:15: [id number] 00 Elimination constipatio Eliminatio Resolve 2016-03-01 [place] n n d 12-29 12:00:00 Son 13:33: [id number] 00 IV IV present IV Resolve 2016-01-26 Chelsea d 12-29 11:50:00 Son 13:33: [id number] 00 Integument skin Integument Resolve 2016-04-27 Anna integrity d 01-25 11:15:00 Regeczi risk 11:50: [id number] 00 Nutrition knowledge/s Nutrition Resolve 2016-03-01 Cherrise kill d 02-26 12:00:00 Abbe deficit: pt 10:00: [id number] 00 Pain frequent Pain Mgmt Resolve 2018-08-28 [place] pain d 03-01 12:45:00 Son 12:00: [id number] 00 Nutrition knowledge/s Nutrition Resolve 2016-04-06 Neida kill d 03-23 14:54:00 [place] deficit: pt 13:30: RN 00 Endo/Hugo insulin Endo/Hugo Resolve 2016-10-17 [place] admn d 04-06 12:30:00 Cline dependence 14:54: [id number] 00 Nutrition changing Nutrition Resolve 2016-05-10 Chelsea weight/appe d 04-27 11:45:00 Son tite 11:15: [id number] 00 Nutrition knowledge/s Nutrition Resolve 2016-04-27 [place] kill d 04-27 11:15:00 Son deficit: pt 11:15: [id number] 00 Cardio hypertensio Cardiovasc Resolve 2016-09-20 Evi n ular d 08-02 10:00:00 Hai 10:30: [id number] 00 Respiratory lung sounds Respirator Resolve 2016-08-25 Evi deficit y d 08-02 10:30:00 Hai 10:30: [id number] 00 Respiratory CPAP Respirator Resolve 2016-10-17 Evi treatments y d 08-02 12:30:00 Hai in home 10:30: [id number] 00 Respiratory dyspnea Respirator Resolve 2016-10-17 Evi present y d 08-02 12:30:00 Hai 10:30: [id number] 00 Respiratory oxygen Respirator Resolve 2016-10-17 Evi treatments y d 08-02 12:30:00 Hai in home 10:30: [id number] 00 Integument knowledge/s Integument Resolve 2016-08-16 Evi kill d 08-02 12:45:00 Hai deficit: pt 10:30: [id number] 00 Medication knowledge/s Meds Resolve 2016-08-25 Evi kill d 08-02 10:30:00 Hai deficit: pt 10:30: [id number] 00 Neuro anxiety Neuro/Emot Resolve 2016-10-17 Evi present ion d 08-16 12:30:00 Hai 12:45: [id number] 00 Integument knowledge/s Integument Resolve 2016-08-25 Evi kill d 08-25 10:30:00 Hai deficit: pt 10:30: [id number] 00 Nutrition nutritional Nutrition Resolve 2016-08-25 Evi restriction d 08-25 10:30:00 Hai s 10:30: [id number] 00 Neuro knowledge/s Neuro/Emot Resolve 2016-2016-08-25 Evi kill ion d 08-25 10:30:00 Hai deficit: pt 10:30: [id number] 00 Medication oral med Meds Resolve 2016-08-25 Evi assistance d 08-25 10:30:00 Hai required 10:30: [id number] 00 Respiratory oxygen Respirator Unknown Evi treatments y 2-06 Hai in home 14:30: [id number] 00 Integument knowledge/s Integument Resolve 2016-09-05 Evi kill d 09-05 14:30:00 Hai deficit: pt 14:30: [id number] 00 Medication oral med Meds Resolve 2016-10-17 Evi assistance d 09-05 12:30:00 Hai required 14:30: [id number] 00 Medication knowledge/s Meds Resolve 2016-12-05 Evi kill d 09-05 17:00:00 Hai deficit: pt 14:30: [id number] 00 Respiratory lung sounds Respirator Resolve 2016-09-20 Evi deficit y d 2- 10:00:00 Hai 10:00: [id number] 00 Integument knowledge/s Integument Resolve 2016-10-17 Evi kill d 2- 12:30:00 Hai deficit: pt 10:00: [id number] 00 Integument other wound Integument Resolve 2016-10-17 Evi present d 2- 12:30:00 Hai 10:00: [id number] 00 Respiratory lung sounds Respirator Resolve 2018-10-09 Evi deficit y d 3-06 12:40:00 Hai 15:00: [id number] 00 Respiratory CPAP Respirator Unknown Evi treatments y 3-06 Hai in home 15:00: [id number] 00 Respiratory smoker Respirator Resolve 2016-10-17 Evi y d 3-06 12:30:00 Hai 15:00: [id number] 00 Respiratory nebulizer Respirator Unknown Evi treatment y 3-06 Hai in home 15:00: [id number] 00 Respiratory dyspnea Respirator Resolve 2016-11-07 Evi present y d 10-25 12:20:00 Hai 14:15: [id number] 00 Respiratory oxygen Respirator Unknown Evi treatments y 10-25 Hai in home 14:15: [id number] 00 Respiratory smoker Respirator Resolve 2016-11-07 Evi y d 10-25 12:20:00 Hai 14:15: [id number] 00 Integument other wound Integument Resolve 2016-10-25 Evi present d 10-25 14:15:00 Hai 14:15: [id number] 00 Nutrition nutritional Nutrition Resolve 2016-11-07 Evi restriction d 10-25 12:20:00 Hai s 14:15: [id number] 00 Neuro anxiety Neuro/Emot Resolve 2016-11-07 Evi present ion d 10-25 12:20:00 Hai 14:15: [id number] 00 Medication oral med Meds Resolve 2016-12-05 Evi assistance d 10-25 17:00:00 Hai required 14:15: [id number] 00 Medication potential Meds Resolve 2016-12-05 Evi clinically d 11-07 17:00:00 Hai significant 12:20: [id number] medication 00 issue Respiratory dyspnea Respirator Resolve 2016-11-21 Evi present y d 11-14 13:30:00 Hai 14:00: [id number] 00 Respiratory oxygen Respirator Unknown Evi treatments y 11-21 Hai in home 13:30: [id number] 00 Respiratory lung sounds Respirator Resolve 2018-10-09 Evi deficit y d 11-21 12:40:00 Hai 13:30: [id number] 00 Respiratory smoker Respirator Resolve 2016-11-21 Evi y d 11-21 13:30:00 Hai 13:30: [id number] 00 Respiratory nebulizer Respirator Unknown Evi treatment y 11-21 Hai in home 13:30: [id number] 00 Neuro anxiety Neuro/Emot Resolve 2016-12-25 Evi present ion d 11-21 13:30:00 Hai 13:30: [id number] 00 Respiratory oxygen Respirator Resolve 2018-09-18 Evi treatments y d 12-05 13:30:00 Hai in home 17:00: [id number] 00 Respiratory smoker Respirator Resolve 2016-12-05 Evi y d 12-05 17:00:00 Hai 17:00: [id number] 00 Respiratory nebulizer Respirator Resolve 2018-09-18 Evi treatment y d 12-05 13:30:00 Hai in home 17:00: [id number] 00 Endo/Hugo knowledge/s Endo/Hugo Resolve 2016-12-19 Evi kill d 12-05 13:00:00 Hai deficit: pt 17:00: [id number] 00 Medication knowledge/s Meds Resolve 2016-12-25 Evi kill d 12-19 13:30:00 Hai deficit: pt 13:00: [id number] 00 Respiratory dyspnea Respirator Resolve 2017-02-27 Evi present y d 12-25 12:30:00 Hai 13:30: [id number] 00 Integument other wound Integument Resolve 2017-01-02 Evi present d 12-25 11:50:00 Hai 13:30: [id number] 00 Medication knowledge/s Meds Resolve 2016-12-25 Evi kill d 12-25 13:30:00 Hai deficit: pt 13:30: [id number] 00 Respiratory smoker Respirator Resolve 2017-01-16 Evi y d 01-16 15:00:00 Hai 15:00: [id number] 00 Respiratory lung sounds Respirator Resolve 2017-02-13 Evi deficit y d 02-13 12:45:00 Hai 12:45: [id number] 00 Respiratory smoker Respirator Resolve 2017-02-13 Evi y d 02-13 12:45:00 Hai 12:45: [id number] 00 Respiratory smoker Respirator Resolve 2017-02-27 Evi y d 02-24 12:30:00 Hai 13:00: [id number] 00 Integument other wound Integument Resolve 2017-02-24 Evi present d 02-24 13:00:00 Hai 13:00: [id number] 00 Nutrition nutritional Nutrition Resolve 2017-04-03 [place] restriction d - 12:25:00 Eric garcia 13:00: an 00 Integument other wound Integument Resolve 2017-05-01 Evi present d 04-25 12:15:00 Hai 13:00: [id number] 00 Neuro depressive Neuro/Emot Resolve 2017-05-01 Evi feelings ion d 04-25 12:15:00 Hai present 13:00: [id number] 00 Neuro anxiety Neuro/Emot Resolve 2017-05-01 Evi present ion d 04-25 12:15:00 Hai 13:00: [id number] 00 Respiratory lung sounds Respirator Resolve 2016-072017-05-01 Evi deficit y d 0- 12:15:00 Hai 12:15: [id number] 00 Respiratory smoker Respirator Resolve 2016-072017-06-12 Evi y d 1- 11:14:00 Hai 11:14: [id number] 00 Respiratory smoker Respirator Resolve 2016-072017-06-21 Evi y d 08-21 11:15:00 Hai 11:15: [id number] 00 Integument other wound Integument Resolve 2016-072017-06-21 Evi present d 08-21 11:15:00 Hai 11:15: [id number] 00 Respiratory lung sounds Respirator Resolve 2016-072017-06-26 Evi deficit y d 08-26 12:15:00 Hai 12:15: [id number] 00 Respiratory lung sounds Respirator Unknown 2016-07 Evi deficit y 2-11 Hai 12:20: [id number] 00 Respiratory smoker Respirator Resolve 2016-072017-08-03 Evi y d 2-28 11:30:00 Hai 12:10: [id number] 00 Respiratory lung sounds Respirator Resolve 2017-08-03 Evi deficit y d 1- 11:30:00 Hai 11:30: [id number] 00 Respiratory lung sounds Respirator Resolve 2017-08-07 Evi deficit y d 1- 10:20:00 Hai 10:20: [id number] 00 Respiratory smoker Respirator Resolve 2017-08-07 Evi y d 1-08 10:20:00 Hai 10:20: [id number] 00 Respiratory lung sounds Respirator Resolve 2017-2017-08-14 Evi deficit y d 1-15 11:30:00 Hai 11:30: [id number] 00 Respiratory smoker Respirator Resolve 2017-2017-08-14 Evi y d 1-15 11:30:00 Hai 11:30: [id number] 00 Integument other wound Integument Resolve 2017-2017-08-21 Evi present d 1- 10:50:00 Hai 10:50: [id number] 00 Respiratory smoker Respirator Resolve 2017-2017-09-04 Evi y d 1- 12:40:00 Hai 12:30: [id number] 00 Respiratory lung sounds Respirator Resolve 2017-09-11 Evi deficit y d 2-12 13:00:00 Hai 13:00: [id number] 00 Respiratory lung sounds Respirator Resolve 2017-09-20 Evi deficit y d 2-21 11:15:00 Hai 11:15: [id number] 00 Respiratory lung sounds Respirator Resolve 2017-2017-09-27 Evi deficit y d 2-28 11:45:00 Hai 11:45: [id number] 00 Respiratory lung sounds Respirator Resolve 2017-10-18 Evi deficit y d 3-21 11:00:00 Hai 11:00: [id number] 00 Respiratory smoker Respirator Resolve 2017-10-18 Evi y d 3-21 11:00:00 Hai 11:00: [id number] 00 Integument other wound Integument Resolve 2017-10-25 Evi present d 3-21 11:00:00 Hai 11:00: [id number] 00 Respiratory lung sounds Respirator Resolve 2018-10-09 Evi deficit y d 4-10 12:40:00 Hai 14:45: [id number] 00 Respiratory smoker Respirator Resolve 2017-2017-11-15 Evi y d 4-18 11:00:00 Hai 11:00: [id number] 00 Respiratory lung sounds Respirator Resolve 2017-2018-10-09 Evi deficit y d 4-25 12:40:00 Hai 13:40: [id number] 00 Respiratory smoker Respirator Resolve 2017-11-22 Evi y d 11-22 13:40:00 Hai 13:40: [id number] 00 Respiratory smoker Respirator Resolve 2017-12-06 Evi y d 12-06 13:15:00 Hai 13:15: [id number] 00 Respiratory lung sounds Respirator Resolve 2017-12-13 Evi deficit y d 12-13 13:00:00 Hai 13:00: [id number] 00 Respiratory lung sounds Respirator Resolve 2017-12-26 Evi deficit y d 12-20 12:05:00 Hai 13:15: [id number] 00 Integument other wound Integument Resolve 2017-12-26 Evi present d 12-20 12:05:00 Hai 13:15: [id number] 00 Respiratory lung sounds Respirator Resolve 2018-01-03 Evi deficit y d 06 12:38:00 Hai 12:38: [id number] 00 Respiratory lung sounds Respirator Resolve 2018-10-09 Evi deficit y d 6-13 12:40:00 Hai 15:00: [id number] 00 Respiratory smoker Respirator Resolve 2018-01-10 Evi y d 6-13 15:00:00 Hai 15:00: [id number] 00 Respiratory lung sounds Respirator Resolve 2018-01-24 Evi deficit y d 6- 13:10:00 Hai 13:10: [id number] 00 Nutrition nutritional Nutrition Resolve 2019-08-13 Evi restriction d 6 10:50:00 Hai s 13:10: [id number] 00 Safety sanitation Safety Resolve 2018-06-05 Evi hazards d 6- 10:35:00 Hai present 13:10: [id number] 00 Safety fall risk Safety Resolve 2018-02-19 Evi factor d 6 14:02:00 Hai present 13:10: [id number] 00 Safety risk for Safety Resolve 2018-10-30 Evi hospitaliza d 01-24 13:06:00 Hai tion 13:10: [id number] 00 Safety structural Safety Resolve 2018-02-19 Evi barriers d 01-24 14:02:00 Hai present 13:10: [id number] 00 Safety safety Safety Resolve 2018-02-19 Evi hazards d 01-24 14:02:00 Hai present 13:10: [id number] 00 Medication oral med Meds Active Evi assistance 01-24 Hai required 13:10: [id number] 00 Medication injectable Meds Active Evi med 01-24 Hai assistance 13:10: [id number] required 00 Respiratory lung sounds Respirator Resolve 2018-10-09 Evi deficit y d 01-29 12:40:00 Hai 13:45: [id number] 00 Respiratory smoker Respirator Resolve 2018-02-07 Evi y d 01-29 13:00:00 Hai 13:45: [id number] 00 Respiratory smoker Respirator Resolve 2018-03-01 Evi y d 02-19 11:42:00 Hai 14:02: [id number] 00 Integument other wound Integument Resolve 2018-03-21 Evi present d 02-19 15:30:00 Hai 14:02: [id number] 00 Respiratory smoker Respirator Resolve 2018-03-28 Evi y d 03-28 11:36:00 Hai 11:36: [id number] 00 Respiratory smoker Respirator Resolve 2018-04-03 Evi y d 04-03 14:00:00 Hai 14:00: [id number] 00 Respiratory smoker Respirator Resolve 2018-04-10 Evi y d 04-10 14:40:00 Hai 14:40: [id number] 00 Integument other wound Integument Resolve 2018-04-24 Evi present d 04-18 10:16:00 Hai 11:00: [id number] 00 Respiratory smoker Respirator Resolve 2017-072018-05-16 Evi y d 0 14:20:00 Hai 10:50: [id number] 00 Respiratory smoker Respirator Resolve 2017-072018-05-29 Evi y d 11:30:00 Hai 11:30: [id number] 00 Respiratory smoker Respirator Resolve 2017-072018-06-05 Evi y d 08-05 10:35:00 Hai 10:35: [id number] 00 Safety safety Safety Resolve 2017-072018-06-05 Evi hazards d 08-05 10:35:00 Hai present 10:35: [id number] 00 Integument other wound Integument Resolve 2017-072018-06-26 Evi present d 08-19 15:15:00 Hai 11:12: [id number] 00 Respiratory smoker Respirator Resolve 2017-072018-06-26 Evi y d 08-26 15:15:00 Hai 15:15: [id number] 00 Respiratory smoker Respirator Resolve 2017-072018-07-03 Evi y d 09-03 11:13:00 Hai 11:13: [id number] 00 Respiratory smoker Respirator Resolve 2017-072018-07-17 Evi y d 09-10 11:38:00 Hai 11:20: [id number] 00 Respiratory smoker Respirator Resolve 2017-072018-07-23 Evi y d 09-23 10:00:00 Hai 10:00: [id number] 00 Integument other wound Integument Resolve 2018-08-14 Evi present d 08-14 15:44:00 Hai 15:44: [id number] 00 Pain frequent Pain Mgmt Resolve 2018-08-28 Evi pain d 08-25 12:45:00 Hai 09:33: [id number] 56 Pain severe pain Pain Mgmt Resolve 2018-08-28 Evi d 08-25 12:45:00 Hai 09:33: [id number] 56 Integument other wound Integument Resolve 2018-08-28 Evi present d 08-25 12:45:00 Hai 09:33: [id number] 56 Respiratory smoker Respirator Resolve 2018-08-28 Evi y d 08-28 12:45:00 Hai 12:45: [id number] 00 Respiratory smoker Respirator Resolve 2018-09-04 Evi y d 09-04 11:30:00 Hai 11:30: [id number] 00 Respiratory smoker Respirator Resolve 2018-09-18 Evi y d 09-10 13:30:00 Hai 16:40: [id number] 00 Pain severe pain Pain Mgmt Resolve 2018-09-25 Evi d 2-19 10:30:00 Hai 13:30: [id number] 00 Neuro anxiety Neuro/Emot Unknown Evi present ion 09-18 Hai 13:30: [id number] 00 Respiratory oxygen Respirator Resolve 2018-10-16 Evi treatments y d 3-05 11:45:00 Hai in home 10:45: [id number] 00 Respiratory smoker Respirator Resolve 2018-10-09 Evi y d 3-05 12:40:00 Hai 10:45: [id number] 00 Respiratory nebulizer Respirator Resolve 2018-10-16 Evi treatment y d - 11:45:00 Hai in home 10:45: [id number] 00 Respiratory lung sounds Respirator Resolve 2018-10-16 Evi deficit y d 3 11:45:00 Hai 11:45: [id number] 00 Respiratory smoker Respirator Resolve 2018-10-16 Evi y d 3 11:45:00 Hai 11:45: [id number] 00 Integument other wound Integument Resolve 2018-10-23 Evi present d 10-16 11:20:00 Hai 11:45: [id number] 00 Respiratory nebulizer Respirator Resolve 2018-10-23 Evi treatment y d 10-23 11:20:00 Hai in home 11:20: [id number] 00 Safety safety Safety Resolve 2018-10-23 Evi hazards d 10-23 11:20:00 Hai present 11:20: [id number] 00 Respiratory lung sounds Respirator Unknown Evi deficit y 10-30 Hai 13:06: [id number] 00 Respiratory oxygen Respirator Resolve 2018-11-20 Evi treatments y d 11-06 10:35:00 Hai in home 11:31: [id number] 00 Respiratory smoker Respirator Resolve 2018-2018-11-06 Evi y d 11-06 11:31:00 Hai 11:31: [id number] 00 Respiratory nebulizer Respirator Resolve 2018-11-20 Evi treatment y d 11-06 10:35:00 Hai in home 11:31: [id number] 00 Safety risk for Safety Resolve 2018-11-12 Evi hospitaliza d 11-06 10:00:00 Hai tion 11:31: [id number] 00 Respiratory smoker Respirator Resolve 2018-11-20 Evi y d 11-12 10:35:00 Hai 10:00: [id number] 00 Respiratory lung sounds Respirator Resolve 2018-11-20 Evi deficit y d 11-20 10:35:00 Hai 10:35: [id number] 00 Safety risk for Safety Resolve 2018-11-27 Evi hospitaliza d 11-20 11:00:00 Hai tion 10:35: [id number] 00 Pain severe pain Pain Mgmt Resolve 2018-12-04 Evi d 11-27 11:35:00 Hai 11:00: [id number] 00 Respiratory oxygen Respirator Resolve 2018-12-12 Evi treatments y d 11-27 09:08:00 Hai in home 11:00: [id number] 00 Respiratory lung sounds Respirator Resolve 2018-12-04 Evi deficit y d 11-27 11:35:00 Hai 11:00: [id number] 00 Respiratory nebulizer Respirator Resolve 2018-12-12 Evi treatment y d 11-27 09:08:00 Hai in home 11:00: [id number] 00 Respiratory smoker Respirator Resolve 2018-12-04 Evi y d 12-04 11:35:00 Hai 11:35: [id number] 00 Safety risk for Safety Resolve 2018-12-12 Evi hospitaliza d 12-04 09:08:00 Hai tion 11:35: [id number] 00 Cardio hypertensio Cardiovasc Resolve 2018-12-18 Evi n ular d 12-12 14:00:00 Hai 09:08: [id number] 00 Respiratory lung sounds Respirator Resolve 2018-12-12 Evi deficit y d 12-12 09:08:00 Hai 09:08: [id number] 00 Respiratory smoker Respirator Resolve 2018-12-12 Evi y d 5-15 09:08:00 Hai 09:08: [id number] 00 Integument other wound Integument Resolve 2018-12-18 Evi present d 5-15 14:00:00 Hai 09:08: [id number] 00 Safety risk for Safety Resolve 2019-01-01 Evi hospitaliza d 12-18 13:20:00 Hai tion 14:00: [id number] 00 Cardio hypertensio Cardiovasc Resolve 2018-2019-01-01 Evi n ular d 12-25 13:20:00 Hai 10:30: [id number] 00 Respiratory oxygen Respirator Resolve 2018-2019-01-08 Evi treatments y d 12-25 11:00:00 Hai in home 10:30: [id number] 00 Respiratory lung sounds Respirator Resolve 2018-2019-01-01 Evi deficit y d 12-25 13:20:00 Hai 10:30: [id number] 00 Respiratory nebulizer Respirator Resolve 2019-01-08 Evi treatment y d 12-25 11:00:00 Hai in home 10:30: [id number] 00 Cardio hypertensio Cardiovasc Resolve 2019-01-15 Evi n ular d - 12:05:00 Hai 11:00: [id number] 00 Respiratory smoker Respirator Resolve 2019-01-08 Evi y d 6- 11:00:00 Hai 11:00: [id number] 00 Respiratory lung sounds Respirator Resolve 2018-2019-01-08 Evi deficit y d 6- 11:00:00 Hai 11:00: [id number] 00 Safety risk for Safety Resolve 2019-01-15 Vei hospitaliza d - 12:05:00 Hai tion 11:00: [id number] 00 Respiratory lung sounds Respirator Unknown Evi deficit y 6 Hai 12:05: [id number] 00 Respiratory nebulizer Respirator Resolve 2018-2019-01-22 Evi treatment y d 6- 11:45:00 Hai in home 12:05: [id number] 00 Respiratory oxygen Respirator Resolve 2018-2019-01-22 Evi treatments y d 6 11:45:00 Hai in home 11:45: [id number] 00 Respiratory smoker Respirator Resolve 2019-01-22 Evi y d 6 11:45:00 Hai 11:45: [id number] 00 Respiratory lung sounds Respirator Resolve 2018-2019-02-05 Evi deficit y d 01-29 11:30:00 Hai 11:40: [id number] 00 Respiratory smoker Respirator Resolve 2019-02-05 Evi y d 01-29 11:30:00 Hai 11:40: [id number] 00 Respiratory nebulizer Respirator Resolve 2019-02-05 Evi treatment y d 01-29 11:30:00 Hai in home 11:40: [id number] 00 Pain severe pain Pain Mgmt Resolve 2019-02-12 Evi d 02-08 13:30:00 Hai 16:30: [id number] 00 Respiratory oxygen Respirator Resolve 2019-02-19 Evi treatments y d 02-12 14:00:00 Hai in home 13:30: [id number] 00 Respiratory nebulizer Respirator Resolve 2019-02-19 Evi treatment y d 02-12 14:00:00 Hai in home 13:30: [id number] 00 Integument other wound Integument Resolve 2019-02-12 Evi present d 02-12 13:30:00 Hai 13:30: [id number] 00 Safety fall risk Safety Resolve 2019-02-12 Evi factor d 02-12 13:30:00 Hai present 13:30: [id number] 00 Safety risk for Safety Resolve 2019-07-02 Evi hospitaliza d 02-12 11:45:00 Hai tion 13:30: [id number] 00 Respiratory smoker Respirator Resolve 2019-02-19 Evi y d 02-19 14:00:00 Hai 14:00: [id number] 00 Integument knowledge/s Integument Resolve 2019-02-27 Evi kill d 02-19 11:00:00 Hai deficit: pt 14:00: [id number] 00 Respiratory nebulizer Respirator Unknown Evi treatment y 7-31 Hai in home 11:00: [id number] 00 Respiratory smoker Respirator Resolve 2019-03-05 Evi y d 8 13:00:00 Hai 13:00: [id number] 00 Respiratory lung sounds Respirator Resolve 2019-04-09 Evi deficit y d 8 14:30:00 Hai 13:00: [id number] 00 Endo/Hugo glucose Endo/Hugo Resolve 2019-03-19 Evi tolerance d 03-05 13:30:00 Hai problem 13:00: [id number] 00 Endo/Hugo knowledge/s Endo/Hugo Resolve 2019-03-19 Evi kill d 03-05 13:30:00 Hai deficit 13:00: [id number] hypo/hyperg 00 lycemia: pt Integument other wound Integument Resolve 2019-03-05 Evi present d 03-05 13:00:00 Hai 13:00: [id number] 00 Respiratory oxygen Respirator Resolve 2019-03-26 Evi treatments y d 8-13 16:55:00 Hai in home 13:00: [id number] 00 Respiratory nebulizer Respirator Resolve 2019-03-26 Evi treatment y d 8-13 16:55:00 Hai in home 13:00: [id number] 00 Respiratory oxygen Respirator Resolve 2019-04-09 Evi treatments y d 903 14:30:00 Hai in home 12:15: [id number] 00 Respiratory nebulizer Respirator Resolve 2019-04-09 Evi treatment y d 9 14:30:00 Hai in home 12:15: [id number] 00 Endo/Hugo knowledge/s Endo/Hugo Resolve 2019-06-25 Evi kill d 04-02 12:00:00 Hai deficit: pt 12:15: [id number] 00 Endo/Hugo knowledge/s Endo/Hugo Resolve 2019-06-25 Evi kill d 04-02 12:00:00 Hai deficit 12:15: [id number] hypo/hyperg 00 lycemia: pt Respiratory smoker Respirator Resolve 2019-04-09 Evi y d 04-09 14:30:00 Hai 14:30: [id number] 00 Endo/Hugo glucose Endo/Hugo Resolve 2019-04-09 Evi tolerance d 9-10 14:30:00 Hai problem 14:30: [id number] 00 Respiratory oxygen Respirator Resolve 2019-04-23 Evi treatments y d 9-16 14:15:00 Hai in home 14:00: [id number] 00 Respiratory smoker Respirator Resolve 2019-04-23 Evi y d 9-16 14:15:00 Hai 14:00: [id number] 00 Respiratory nebulizer Respirator Resolve 2019-04-23 Evi treatment y d 9-16 14:15:00 Hai in home 14:00: [id number] 00 Endo/Hugo anti-coagul Endo/Hugo Resolve 2019-04-23 Evi ation d 9- 14:15:00 Hai therapy 14:00: [id number] 00 Endo/Hugo glucose Endo/Hugo Resolve 2019-04-23 Evi tolerance d 24 14:15:00 Hai problem 14:15: [id number] 00 Respiratory lung sounds Respirator Resolve 2018-072019-05-07 Evi deficit y d 0-01 15:20:00 Hai 11:06: [id number] 00 Respiratory smoker Respirator Resolve 2018-072019-05-07 Evi y d 0-01 15:20:00 Hai 11:06: [id number] 00 Respiratory oxygen Respirator Resolve 2018-072019-05-15 Evi treatments y d 0-08 10:00:00 Hai in home 15:20: [id number] 00 Respiratory nebulizer Respirator Resolve 2018-072019-05-15 Evi treatment y d 0-08 10:00:00 Hai in home 15:20: [id number] 00 Respiratory lung sounds Respirator Resolve 2018-072019-05-15 Evi deficit y d 0-16 10:00:00 Hai 10:00: [id number] 00 Respiratory lung sounds Respirator Resolve 2018-072019-05-28 Evi deficit y d 0-23 13:15:00 Hai 09:30: [id number] 00 Respiratory oxygen Respirator Resolve 2018-072019-08-13 Evi treatments y d 0-29 10:50:00 Hai in home 13:15: [id number] 00 Respiratory nebulizer Respirator Resolve 2018-072019-08-13 Evi treatment y d 0-29 10:50:00 Hai in home 13:15: [id number] 00 Respiratory smoker Respirator Resolve 2018-072019-05-28 Evi y d 0-29 13:15:00 Hai 13:15: [id number] 00 Respiratory lung sounds Respirator Resolve 2018-072019-06-04 Evi deficit y d 1-05 12:00:00 Hai 12:00: [id number] 00 Respiratory lung sounds Respirator Resolve 2018-072019-06-25 Evi deficit y d 1-11 12:00:00 Hai 11:00: [id number] 00 Respiratory smoker Respirator Resolve 2018-072019-06-18 Evi y d 1-11 12:45:00 Hai 11:00: [id number] 00 Integument other wound Integument Resolve 2018-072019-06-18 Evi present d 1-11 12:45:00 Hai 11:00: [id number] 00 Safety fall risk Safety Resolve 2018-072019-06-25 Evi factor d 1-11 12:00:00 Hai present 11:00: [id number] 00 Respiratory smoker Respirator Resolve 2018-072019-06-25 Evi y d 1- 12:00:00 Hai 12:00: [id number] 00 Neuro anxiety Neuro/Emot Active 2018-07 Evi present ion - Hai 12:00: [id number] 00 Neuro memory Neuro/Emot Active 2018-07 Evi deficit ion - Hai needing 12:00: [id number] 00 Respiratory smoker Respirator Resolve 2018-072019-07-30 Evi y d 2-03 11:00:00 Hai 11:45: [id number] 00 Respiratory lung sounds Respirator Resolve 2018-072019-07-30 Evi deficit y d 2-11 11:00:00 Hai 13:05: [id number] 00 Safety risk for Safety Resolve 2018-072019-07-10 Evi hospitaliza d 2-11 13:05:00 Hai tion 13:05: [id number] 00 Safety risk for Safety Resolve 2018-072019-07-23 Ev[facility] d 2 11:00:00 Hai tion 15:00: [id number] 00 Safety risk for Safety Resolve 2018-072019-07-30 Ev[facility] d 11:00:00 Hai tion 11:00: [id number] 00 Safety risk for Safety Resolve 2019-08-13 Ev[facility] d 08-06 10:50:00 Hai tion 12:30: [id number] 00 Medication potential Meds Active Evi clinically 08-06 Hai significant 12:30: [id number] medication 00 issue Cardio hypertensio Cardiovasc Active Evi n ular 08-13 Hai 10:50: [id number] 00 Respiratory knowledge/s Respirator Resolve 2019-08-13 Evi kill y d 08-13 10:50:00 Hai deficit: pt 10:50: [id number] 00 Respiratory lung sounds Respirator Resolve 2019-08-13 Evi deficit y d 08-13 10:50:00 Hai 10:50: [id number] 00 Respiratory smoker Respirator Resolve 2019-08-13 Evi y d 08-13 10:50:00 Hai 10:50: [id number] 00 Integument other wound Integument Active Evi present 08-13 Hai 10:50: [id number] 00 Neuro depressive Neuro/Emot Active Evi feelings ion 08-13 Hai present 10:50: [id number] 00 Medication knowledge/s Meds Active Evi kill 08-13 Hai deficit: pt 10:50: [id number] 00 Allergies, Adverse Reactions, Alerts Allergy Allergy [...] liter Unknown permeable permeable 09-04 ,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
--- OUTSIDE RECORDS SUMMARY | 2019-09-17 05:42 | XMS REPORT ---
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, disease, unspecified unspecified Essential Essential Diagnosis Active Evi (primary) (primary) 2- Hai hypertensio hypertensio [id number] n n Other Other Diagnosis Active Evi chronic chronic 2-05 Hai pain pain [id number] 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, disorder, 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, recurrent, unspecified unspecified Gastro-esop Gastro-esop Diagnosis Active Evi hageal hageal 2-05 Hai reflux reflux [id number] disease disease without without esophagitis esophagitis 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 [id number] Low back Low back Diagnosis Active Evi pain pain Hai [id number] Hyperlipide Hyperlipide Diagnosis Active Evi hank, hank, Hai unspecified unspecified [id number] Hypothyroid Hypothyroid Diagnosis Active Evi ism, ism, Hai unspecified unspecified [id number] Respiratory treatments Respirator Resolve 2016-10-17 Chelsea ordered y d 2- 12:30:00 Son [id number] Pain frequent Pain Mgmt Resolve 2018-08-28 Chelsea pain d 2- 12:45:00 Son 13:13: [id number] 00 Pain knowledge/s Pain Mgmt Resolve 2015-09-09 Chelsea kill d 09-04 10:40:00 Son deficit: pt 13:13: [id number] 00 Pain severe pain Pain Mgmt Resolve 29 Chelsea d 2-05 12:45:00 Son 13:13: [id number] 00 Respiratory dyspnea Respirator Resolve 2016-10-17 Chelsea present y d 2- 12:30:00 Son 13:13: [id number] 00 Respiratory oxygen Respirator Resolve 2016-10-17 Chelsea treatments y d 2- 12:30:00 Son in home 13:13: [id number] 00 Respiratory knowledge/s Respirator Resolve 2015-09-16 Chelsea kill y d 2- 12:00:00 Son deficit: pt 13:13: [id number] 00 Respiratory lung sounds Respirator Resolve 2016-06-29 Chelsea deficit y d 2 13:03:00 Son 13:13: [id number] 00 Endo/Hugo knowledge/s Endo/Hugo Resolve 2015-09-16 Chelsea kill d 2- 12:00:00 Son deficit: pt 13:13: [id number] 00 Endo/Hugo diabetic Endo/Hugo Resolve 2016-06-29 Chelsea foot care d 2- 13:03:00 Son 13:13: [id number] 00 Nutrition knowledge/s Nutrition Resolve 2015-09-04 Chelsea kill d 2 13:13:00 Son deficit: pt 13:13: [id number] 00 Neuro anxiety Neuro/Emot Resolve 2016-08-02 Chelsea present ion d 2- 10:30:00 Son 13:13: [id number] 00 Neuro depressive Neuro/Emot Resolve 2016-08-02 Chelsea feelings ion d 2- 10:30:00 Son present 13:13: [id number] 00 Neuro knowledge/s Neuro/Emot Resolve 2015-09-16 Chelsea kill ion d 2- 12:00:00 Son deficit: pt 13:13: [id number] 00 Activity ADL Activity Resolve 2016-04-27 Chelsea assistance d 2- 11:15:00 Son required 13:13: [id number] 00 Activity knowledge/s Activity Resolve 2016-03-01 Chelsea kill d 2- 12:00:00 Son deficit: pt 13:13: [id number] 00 Safety fall risk Safety Resolve 2015-09-16 Chelsea factor d 2-05 12:00:00 Cline present 13:13: [id number] 00 Safety risk for Safety Resolve 2015-09-16 Chelsea hospitaliza d 2-05 12:00:00 Cline tion 13:13: [id number] 00 Medication oral med Meds Resolve 2016-08-02 Chelsea assistance d 2-05 10:30:00 Cline required 13:13: [id number] 00 Medication injectable Meds Resolve 2016-08-02 Chelsea med d 2-05 10:30:00 Cline assistance 13:13: [id number] 00 Medication knowledge/s Meds Resolve 2016-06-29 Chelsea kill d 2-05 13:03:00 Son deficit: pt 13:13: [id number] 00 Medication potential Meds Resolve 2016-08-02 Chelsea clinically d 2- 10:30:00 Son significant 13:13: [id number] medication 00 issue Diagnoses knowledge/s Diagnoses Active Chelsea kill - Cline deficit: pt 13:13: [id number] 00 Pain knowledge/s Pain Mgmt Resolve 2015-09-16 Cherrise kill d 2- 12:00:00 Topmost deficit: pt 12:00: [id number] 00 Safety sanitation Safety Resolve 2016-03-01 Cherrise hazards d 2-17 12:00:00 Babe present 12:00: [id number] 00 Safety risk for Safety Resolve 2016-03-01 Cherrise hospitaliza d 2-18 12:00:00 Topmost tion 12:15: [id number] 00 Neuro knowledge/s Neuro/Emot Resolve 2016-08-16 Cherrise kill ion d 2- 12:45:00 Topmost deficit: pt 13:29: [id number] 57 Safety structural Safety Resolve 2016-03-01 Cherrise barriers d 2- 12:00:00 Topmost present 13:29: [id number] 57 Respiratory knowledge/s Respirator Resolve 2016-04-27 Chelsea kill y d 10-27 11:15:00 Son deficit: cg 09:40: [id number] 00 Pain frequent Pain Mgmt Resolve 2018-08-28 Chelsea pain d 11-03 12:45:00 Son 13:04: [id number] 00 Pain knowledge/s Pain Mgmt Resolve 2016-02-24 Hcelsea kill d 11-03 13:35:00 Son deficit: pt 13:04: [id number] 00 Respiratory knowledge/s Respirator Resolve 2016-04-27 Chelesa kill y d 11-03 11:15:00 Son deficit: pt 13:04: [id number] 00 Safety fall risk Safety Resolve 2016-03-01 Chelsea factor d 11-03 12:00:00 Son present 13:04: [id number] 00 Endo/Hugo insulin Endo/Hugo Resolve 2016-10-17 Chelsea admn d 11-24 12:30:00 Son dependence 10:48: [id number] 00 Safety safety Safety Resolve 2016-03-01 Chelsea hazards d 12-22 12:00:00 Cline present 09:15: [id number] 00 Elimination constipatio Eliminatio Resolve 2016-03-01 Chelsea n n d 12-29 12:00:00 Son 13:33: [id number] 00 IV IV present IV Resolve 2016-01-26 Chelsea d 12-29 11:50:00 Son 13:33: [id number] 00 Integument skin Integument Resolve 2016-04-27 Anna integrity d 01-25 11:15:00 Regeczi risk 11:50: [id number] 00 Nutrition knowledge/s Nutrition Resolve 2016-03-01 Cherrise kill d 02-26 12:00:00 Abbe deficit: pt 10:00: [id number] 00 Pain frequent Pain Mgmt Resolve 2018-08-28 Chelsea pain d 03-01 12:45:00 Son 12:00: [id number] 00 Nutrition knowledge/s Nutrition Resolve 2016-04-06 Neida kill d 03-23 14:54:00 Malnoske deficit: pt 13:30: RN 00 Endo/Hugo insulin Endo/Hugo Resolve 2016-10-17 Chelsea admn d 04-06 12:30:00 Cline dependence 14:54: [id number] 00 Nutrition changing Nutrition Resolve 2016-05-10 Chelsea weight/appe d 04-27 11:45:00 Son tite 11:15: [id number] 00 Nutrition knowledge/s Nutrition Resolve 2016-04-27 Chelsea kill d 04-27 11:15:00 Son deficit: pt 11:15: [id number] 00 Cardio hypertensio Cardiovasc Resolve 2016-09-20 Evi n ular d 08-02 10:00:00 Hai 10:30: [id number] 00 Respiratory lung sounds Respirator Resolve 2016-08-25 Evi deficit y d 08-02 10:30:00 Hai 10:30: [id number] 00 Respiratory CPAP Respirator Resolve 2016-10-17 Evi treatments y d 08-02 12:30:00 Hai in home 10:30: [id number] 00 Respiratory dyspnea Respirator Resolve 2016-10-17 Evi present y d 08-02 12:30:00 Hai 10:30: [id number] 00 Respiratory oxygen Respirator Resolve 2016-10-17 Evi treatments y d 08-02 12:30:00 Hai in home 10:30: [id number] 00 Integument knowledge/s Integument Resolve 2016-08-16 Evi kill d 08-02 12:45:00 Hai deficit: pt 10:30: [id number] 00 Medication knowledge/s Meds Resolve 2016-08-25 Evi kill d 08-02 10:30:00 Hai deficit: pt 10:30: [id number] 00 Neuro anxiety Neuro/Emot Resolve 2016-10-17 Evi present ion d 08-16 12:30:00 Hai 12:45: [id number] 00 Integument knowledge/s Integument Resolve 2016-08-25 Evi kill d 08-25 10:30:00 Hai deficit: pt 10:30: [id number] 00 Nutrition nutritional Nutrition Resolve 2016-08-25 Evi restriction d 08-25 10:30:00 Hai s 10:30: [id number] 00 Neuro knowledge/s Neuro/Emot Resolve 2016-2016-08-25 Evi kill ion d 08-25 10:30:00 Hai deficit: pt 10:30: [id number] 00 Medication oral med Meds Resolve 2016-08-25 Evi assistance d 08-25 10:30:00 Hai required 10:30: [id number] 00 Respiratory oxygen Respirator Unknown Evi treatments y 2-06 Hai in home 14:30: [id number] 00 Integument knowledge/s Integument Resolve 2016-09-05 Evi kill d 09-05 14:30:00 Hai deficit: pt 14:30: [id number] 00 Medication oral med Meds Resolve 2016-10-17 Evi assistance d 09-05 12:30:00 Hai required 14:30: [id number] 00 Medication knowledge/s Meds Resolve 2016-12-05 Evi kill d 09-05 17:00:00 Hai deficit: pt 14:30: [id number] 00 Respiratory lung sounds Respirator Resolve 2016-09-20 Evi deficit y d 2- 10:00:00 Hai 10:00: [id number] 00 Integument knowledge/s Integument Resolve 2016-10-17 Evi kill d 2- 12:30:00 Hai deficit: pt 10:00: [id number] 00 Integument other wound Integument Resolve 2016-10-17 Evi present d 2- 12:30:00 Hai 10:00: [id number] 00 Respiratory lung sounds Respirator Resolve 2018-10-09 Evi deficit y d 3-06 12:40:00 Hai 15:00: [id number] 00 Respiratory CPAP Respirator Unknown Evi treatments y 3-06 Hai in home 15:00: [id number] 00 Respiratory smoker Respirator Resolve 2016-10-17 Evi y d 3-06 12:30:00 Hai 15:00: [id number] 00 Respiratory nebulizer Respirator Unknown Evi treatment y 3-06 Hai in home 15:00: [id number] 00 Respiratory dyspnea Respirator Resolve 2016-11-07 Evi present y d 10-25 12:20:00 Hai 14:15: [id number] 00 Respiratory oxygen Respirator Unknown Evi treatments y 10-25 Hai in home 14:15: [id number] 00 Respiratory smoker Respirator Resolve 2016-11-07 Evi y d 10-25 12:20:00 Hai 14:15: [id number] 00 Integument other wound Integument Resolve 2016-10-25 Evi present d 10-25 14:15:00 Hai 14:15: [id number] 00 Nutrition nutritional Nutrition Resolve 2016-11-07 Eiv restriction d 10-25 12:20:00 Hai s 14:15: [id number] 00 Neuro anxiety Neuro/Emot Resolve 2016-11-07 Evi present ion d 10-25 12:20:00 Hai 14:15: [id number] 00 Medication oral med Meds Resolve 2016-12-05 Evi assistance d 10-25 17:00:00 Hai required 14:15: [id number] 00 Medication potential Meds Resolve 2016-12-05 Evi clinically d 11-07 17:00:00 Hai significant 12:20: [id number] medication 00 issue Respiratory dyspnea Respirator Resolve 2016-11-21 Evi present y d 11-14 13:30:00 Hai 14:00: [id number] 00 Respiratory oxygen Respirator Unknown Evi treatments y 11-21 Hai in home 13:30: [id number] 00 Respiratory lung sounds Respirator Resolve 2018-10-09 Evi deficit y d 11-21 12:40:00 Hai 13:30: [id number] 00 Respiratory smoker Respirator Resolve 2016-11-21 Eiv y d 11-21 13:30:00 Hai 13:30: [id number] 00 Respiratory nebulizer Respirator Unknown Evi treatment y 11-21 Hai in home 13:30: [id number] 00 Neuro anxiety Neuro/Emot Resolve 2016-12-25 Evi present ion d 11-21 13:30:00 Hai 13:30: [id number] 00 Respiratory oxygen Respirator Resolve 2018-09-18 Evi treatments y d 12-05 13:30:00 Hai in home 17:00: [id number] 00 Respiratory smoker Respirator Resolve 2016-12-05 Evi y d 12-05 17:00:00 Hai 17:00: [id number] 00 Respiratory nebulizer Respirator Resolve 2018-09-18 Evi treatment y d 12-05 13:30:00 Hai in home 17:00: [id number] 00 Endo/Hugo knowledge/s Endo/Hugo Resolve 2016-12-19 Evi kill d 12-05 13:00:00 Hai deficit: pt 17:00: [id number] 00 Medication knowledge/s Meds Resolve 2016-12-25 Evi kill d 12-19 13:30:00 Hai deficit: pt 13:00: [id number] 00 Respiratory dyspnea Respirator Resolve 2017-02-27 Evi present y d 12-25 12:30:00 Hai 13:30: [id number] 00 Integument other wound Integument Resolve 2017-01-02 Evi present d 12-25 11:50:00 Hai 13:30: [id number] 00 Medication knowledge/s Meds Resolve 2016-12-25 Evi kill d 12-25 13:30:00 Hai deficit: pt 13:30: [id number] 00 Respiratory smoker Respirator Resolve 2017-01-16 Evi y d 01-16 15:00:00 Hai 15:00: [id number] 00 Respiratory lung sounds Respirator Resolve 2017-02-13 Evi deficit y d 02-13 12:45:00 Hai 12:45: [id number] 00 Respiratory smoker Respirator Resolve 2017-02-13 Evi y d 02-13 12:45:00 Hai 12:45: [id number] 00 Respiratory smoker Respirator Resolve 2017-02-27 Evi y d 02-24 12:30:00 Hai 13:00: [id number] 00 Integument other wound Integument Resolve 2017-02-24 Evi present d 02-24 13:00:00 Hai 13:00: [id number] 00 Nutrition nutritional Nutrition Resolve 2017-04-03 Tammee restriction d - 12:25:00 Eric garcia 13:00: an 00 Integument other wound Integument Resolve 2017-05-01 Evi present d 04-25 12:15:00 Hai 13:00: [id number] 00 Neuro depressive Neuro/Emot Resolve 2017-05-01 Evi feelings ion d 04-25 12:15:00 Hai present 13:00: [id number] 00 Neuro anxiety Neuro/Emot Resolve 2017-05-01 Evi present ion d 04-25 12:15:00 Hai 13:00: [id number] 00 Respiratory lung sounds Respirator Resolve 2016-072017-05-01 Evi deficit y d 0- 12:15:00 Hai 12:15: [id number] 00 Respiratory smoker Respirator Resolve 2016-072017-06-12 Evi y d 1- 11:14:00 Hai 11:14: [id number] 00 Respiratory smoker Respirator Resolve 2016-072017-06-21 Evi y d 08-21 11:15:00 Hai 11:15: [id number] 00 Integument other wound Integument Resolve 2016-072017-06-21 Evi present d 08-21 11:15:00 Hai 11:15: [id number] 00 Respiratory lung sounds Respirator Resolve 2016-072017-06-26 Evi deficit y d 08-26 12:15:00 Hai 12:15: [id number] 00 Respiratory lung sounds Respirator Unknown 2016-07 Evi deficit y 2-11 Hai 12:20: [id number] 00 Respiratory smoker Respirator Resolve 2016-072017-08-03 Evi y d 2-28 11:30:00 Hai 12:10: [id number] 00 Respiratory lung sounds Respirator Resolve 2017-08-03 Evi deficit y d 1- 11:30:00 Hai 11:30: [id number] 00 Respiratory lung sounds Respirator Resolve 2017-08-07 Evi deficit y d 1- 10:20:00 Hai 10:20: [id number] 00 Respiratory smoker Respirator Resolve 2017-08-07 Evi y d 1-08 10:20:00 Hai 10:20: [id number] 00 Respiratory lung sounds Respirator Resolve 2017-2017-08-14 Evi deficit y d 1-15 11:30:00 Hai 11:30: [id number] 00 Respiratory smoker Respirator Resolve 2017-2017-08-14 Evi y d 1-15 11:30:00 Hai 11:30: [id number] 00 Integument other wound Integument Resolve 2017-2017-08-21 Evi present d 1- 10:50:00 Hai 10:50: [id number] 00 Respiratory smoker Respirator Resolve 2017-2017-09-04 Evi y d 1- 12:40:00 Hai 12:30: [id number] 00 Respiratory lung sounds Respirator Resolve 2017-09-11 Evi deficit y d 2-12 13:00:00 Hai 13:00: [id number] 00 Respiratory lung sounds Respirator Resolve 2017-09-20 Evi deficit y d 2-21 11:15:00 Hai 11:15: [id number] 00 Respiratory lung sounds Respirator Resolve 2017-2017-09-27 Evi deficit y d 2-28 11:45:00 Hai 11:45: [id number] 00 Respiratory lung sounds Respirator Resolve 2017-10-18 Evi deficit y d 3-21 11:00:00 Hai 11:00: [id number] 00 Respiratory smoker Respirator Resolve 2017-10-18 Evi y d 3-21 11:00:00 Hai 11:00: [id number] 00 Integument other wound Integument Resolve 2017-10-25 Evi present d 3-21 11:00:00 Hai 11:00: [id number] 00 Respiratory lung sounds Respirator Resolve 2018-10-09 Evi deficit y d 4-10 12:40:00 Hai 14:45: [id number] 00 Respiratory smoker Respirator Resolve 2017-2017-11-15 Evi y d 4-18 11:00:00 Hai 11:00: [id number] 00 Respiratory lung sounds Respirator Resolve 2017-2018-10-09 Evi deficit y d 4-25 12:40:00 Hai 13:40: [id number] 00 Respiratory smoker Respirator Resolve 2017-11-22 Evi y d 11-22 13:40:00 Hai 13:40: [id number] 00 Respiratory smoker Respirator Resolve 2017-12-06 Evi y d 12-06 13:15:00 Hai 13:15: [id number] 00 Respiratory lung sounds Respirator Resolve 2017-12-13 Evi deficit y d 12-13 13:00:00 Hai 13:00: [id number] 00 Respiratory lung sounds Respirator Resolve 2017-12-26 Evi deficit y d 12-20 12:05:00 Hai 13:15: [id number] 00 Integument other wound Integument Resolve 2017-12-26 Evi present d 12-20 12:05:00 Hai 13:15: [id number] 00 Respiratory lung sounds Respirator Resolve 2018-01-03 Evi deficit y d 06 12:38:00 Hai 12:38: [id number] 00 Respiratory lung sounds Respirator Resolve 2018-10-09 Evi deficit y d 6-13 12:40:00 Hai 15:00: [id number] 00 Respiratory smoker Respirator Resolve 2018-01-10 Evi y d 6-13 15:00:00 Hai 15:00: [id number] 00 Respiratory lung sounds Respirator Resolve 2018-01-24 Evi deficit y d 6- 13:10:00 Hai 13:10: [id number] 00 Nutrition nutritional Nutrition Resolve 2019-08-13 Evi restriction d 6 10:50:00 Hai s 13:10: [id number] 00 Safety sanitation Safety Resolve 2018-06-05 Evi hazards d 6- 10:35:00 Hai present 13:10: [id number] 00 Safety fall risk Safety Resolve 2018-02-19 Evi factor d 6 14:02:00 Hai present 13:10: [id number] 00 Safety risk for Safety Resolve 2018-10-30 Evi hospitaliza d 01-24 13:06:00 Hai tion 13:10: [id number] 00 Safety structural Safety Resolve 2018-02-19 Evi barriers d 01-24 14:02:00 Hai present 13:10: [id number] 00 Safety safety Safety Resolve 2018-02-19 Eiv hazards d 01-24 14:02:00 Hai present 13:10: [id number] 00 Medication oral med Meds Active Evi assistance 01-24 Hai required 13:10: [id number] 00 Medication injectable Meds Active Evi med 01-24 Hai assistance 13:10: [id number] 00 Respiratory lung sounds Respirator Resolve 2018-10-09 Evi deficit y d 01-29 12:40:00 Hai 13:45: [id number] 00 Respiratory smoker Respirator Resolve 2018-02-07 Evi y d 01-29 13:00:00 Hai 13:45: [id number] 00 Respiratory smoker Respirator Resolve 2018-03-01 Evi y d 02-19 11:42:00 Hai 14:02: [id number] 00 Integument other wound Integument Resolve 2018-03-21 Evi present d 02-19 15:30:00 Hai 14:02: [id number] 00 Respiratory smoker Respirator Resolve 2018-03-28 Evi y d 03-28 11:36:00 Hai 11:36: [id number] 00 Respiratory smoker Respirator Resolve 2018-04-03 Evi y d 04-03 14:00:00 Hai 14:00: [id number] 00 Respiratory smoker Respirator Resolve 2018-04-10 Evi y d 04-10 14:40:00 Hai 14:40: [id number] 00 Integument other wound Integument Resolve 2018-04-24 Evi present d 04-18 10:16:00 Hai 11:00: [id number] 00 Respiratory smoker Respirator Resolve 2017-072018-05-16 Evi y d 0 14:20:00 Hai 10:50: [id number] 00 Respiratory smoker Respirator Resolve 2017-072018-05-29 Evi y d 11:30:00 Hai 11:30: [id number] 00 Respiratory smoker Respirator Resolve 2017-072018-06-05 Evi y d 08-05 10:35:00 Hai 10:35: [id number] 00 Safety safety Safety Resolve 2017-072018-06-05 Evi hazards d 08-05 10:35:00 Hai present 10:35: [id number] 00 Integument other wound Integument Resolve 2017-072018-06-26 Evi present d 08-19 15:15:00 Hai 11:12: [id number] 00 Respiratory smoker Respirator Resolve 2017-072018-06-26 Evi y d 08-26 15:15:00 Hai 15:15: [id number] 00 Respiratory smoker Respirator Resolve 2017-072018-07-03 Evi y d 09-03 11:13:00 Hai 11:13: [id number] 00 Respiratory smoker Respirator Resolve 2017-072018-07-17 Evi y d 09-10 11:38:00 Hai 11:20: [id number] 00 Respiratory smoker Respirator Resolve 2017-072018-07-23 Evi y d 09-23 10:00:00 Hai 10:00: [id number] 00 Integument other wound Integument Resolve 2018-08-14 Evi present d 08-14 15:44:00 Hai 15:44: [id number] 00 Pain frequent Pain Mgmt Resolve 2018-08-28 Evi pain d 08-25 12:45:00 Hai 09:33: [id number] 56 Pain severe pain Pain Mgmt Resolve 2018-08-28 Evi d 08-25 12:45:00 Hai 09:33: [id number] 56 Integument other wound Integument Resolve 2018-08-28 Evi present d 08-25 12:45:00 Hai 09:33: [id number] 56 Respiratory smoker Respirator Resolve 2018-08-28 Evi y d 08-28 12:45:00 Hai 12:45: [id number] 00 Respiratory smoker Respirator Resolve 2018-09-04 Evi y d 09-04 11:30:00 Hai 11:30: [id number] 00 Respiratory smoker Respirator Resolve 2018-09-18 Evi y d 09-10 13:30:00 Hai 16:40: [id number] 00 Pain severe pain Pain Mgmt Resolve 2018-09-25 Evi d 2-19 10:30:00 Hai 13:30: [id number] 00 Neuro anxiety Neuro/Emot Unknown Evi present ion 09-18 Hai 13:30: [id number] 00 Respiratory oxygen Respirator Resolve 2018-10-16 Evi treatments y d 3-05 11:45:00 Hai in home 10:45: [id number] 00 Respiratory smoker Respirator Resolve 2018-10-09 Evi y d 3-05 12:40:00 Hai 10:45: [id number] 00 Respiratory nebulizer Respirator Resolve 2018-10-16 Evi treatment y d - 11:45:00 Hai in home 10:45: [id number] 00 Respiratory lung sounds Respirator Resolve 2018-10-16 Evi deficit y d 3 11:45:00 Hai 11:45: [id number] 00 Respiratory smoker Respirator Resolve 2018-10-16 Evi y d 3 11:45:00 Hai 11:45: [id number] 00 Integument other wound Integument Resolve 2018-10-23 Evi present d 10-16 11:20:00 Hai 11:45: [id number] 00 Respiratory nebulizer Respirator Resolve 2018-10-23 Evi treatment y d 10-23 11:20:00 Hai in home 11:20: [id number] 00 Safety safety Safety Resolve 2018-10-23 Evi hazards d 10-23 11:20:00 Hai present 11:20: [id number] 00 Respiratory lung sounds Respirator Unknown Evi deficit y 10-30 Hai 13:06: [id number] 00 Respiratory oxygen Respirator Resolve 2018-11-20 Evi treatments y d 11-06 10:35:00 Hai in home 11:31: [id number] 00 Respiratory smoker Respirator Resolve 2018-2018-11-06 Evi y d 11-06 11:31:00 Hai 11:31: [id number] 00 Respiratory nebulizer Respirator Resolve 2018-11-20 Evi treatment y d 11-06 10:35:00 Hai in home 11:31: [id number] 00 Safety risk for Safety Resolve 2018-11-12 Evi hospitaliza d 11-06 10:00:00 Hai tion 11:31: [id number] 00 Respiratory smoker Respirator Resolve 2018-11-20 Evi y d 11-12 10:35:00 Hai 10:00: [id number] 00 Respiratory lung sounds Respirator Resolve 2018-11-20 Evi deficit y d 11-20 10:35:00 Hai 10:35: [id number] 00 Safety risk for Safety Resolve 2018-11-27 Evi hospitaliza d 11-20 11:00:00 Hai tion 10:35: [id number] 00 Pain severe pain Pain Mgmt Resolve 2018-12-04 Evi d 11-27 11:35:00 Hai 11:00: [id number] 00 Respiratory oxygen Respirator Resolve 2018-12-12 Evi treatments y d 11-27 09:08:00 Hai in home 11:00: [id number] 00 Respiratory lung sounds Respirator Resolve 2018-12-04 Evi deficit y d 11-27 11:35:00 Hai 11:00: [id number] 00 Respiratory nebulizer Respirator Resolve 2018-12-12 Evi treatment y d 11-27 09:08:00 Hai in home 11:00: [id number] 00 Respiratory smoker Respirator Resolve 2018-12-04 Evi y d 12-04 11:35:00 Hai 11:35: [id number] 00 Safety risk for Safety Resolve 2018-12-12 Evi hospitaliza d 12-04 09:08:00 Hai tion 11:35: [id number] 00 Cardio hypertensio Cardiovasc Resolve 2018-12-18 Evi n ular d 12-12 14:00:00 Hai 09:08: [id number] 00 Respiratory lung sounds Respirator Resolve 2018-12-12 Evi deficit y d 12-12 09:08:00 Hai 09:08: [id number] 00 Respiratory smoker Respirator Resolve 2018-12-12 Evi y d 5-15 09:08:00 Hai 09:08: [id number] 00 Integument other wound Integument Resolve 2018-12-18 Evi present d 5-15 14:00:00 Hai 09:08: [id number] 00 Safety risk for Safety Resolve 2019-01-01 Evi hospitaliza d 12-18 13:20:00 Hai tion 14:00: [id number] 00 Cardio hypertensio Cardiovasc Resolve 2018-2019-01-01 Evi n ular d 12-25 13:20:00 Hai 10:30: [id number] 00 Respiratory oxygen Respirator Resolve 2018-2019-01-08 Evi treatments y d 12-25 11:00:00 Hai in home 10:30: [id number] 00 Respiratory lung sounds Respirator Resolve 2018-2019-01-01 Evi deficit y d 12-25 13:20:00 Hai 10:30: [id number] 00 Respiratory nebulizer Respirator Resolve 2019-01-08 Evi treatment y d 12-25 11:00:00 Hai in home 10:30: [id number] 00 Cardio hypertensio Cardiovasc Resolve 2019-01-15 Evi n ular d - 12:05:00 Hai 11:00: [id number] 00 Respiratory smoker Respirator Resolve 2019-01-08 Evi y d 6- 11:00:00 Hai 11:00: [id number] 00 Respiratory lung sounds Respirator Resolve 2018-2019-01-08 Evi deficit y d 6- 11:00:00 Hai 11:00: [id number] 00 Safety risk for Safety Resolve 2019-01-15 Evi hospitaliza d - 12:05:00 Hai tion 11:00: [id number] 00 Respiratory lung sounds Respirator Unknown Evi deficit y 6 Hai 12:05: [id number] 00 Respiratory nebulizer Respirator Resolve 2018-2019-01-22 Evi treatment y d 6- 11:45:00 Hai in home 12:05: [id number] 00 Respiratory oxygen Respirator Resolve 2018-2019-01-22 Evi treatments y d 6 11:45:00 Hai in home 11:45: [id number] 00 Respiratory smoker Respirator Resolve 2019-01-22 Evi y d 6 11:45:00 Hai 11:45: [id number] 00 Respiratory lung sounds Respirator Resolve 2018-2019-02-05 Evi deficit y d 01-29 11:30:00 Hai 11:40: [id number] 00 Respiratory smoker Respirator Resolve 2019-02-05 Evi y d 01-29 11:30:00 Hai 11:40: [id number] 00 Respiratory nebulizer Respirator Resolve 2019-02-05 Evi treatment y d 01-29 11:30:00 Hai in home 11:40: [id number] 00 Pain severe pain Pain Mgmt Resolve 2019-02-12 Evi d 02-08 13:30:00 Hai 16:30: [id number] 00 Respiratory oxygen Respirator Resolve 2019-02-19 Evi treatments y d 02-12 14:00:00 Hai in home 13:30: [id number] 00 Respiratory nebulizer Respirator Resolve 2019-02-19 Evi treatment y d 02-12 14:00:00 Hai in home 13:30: [id number] 00 Integument other wound Integument Resolve 2019-02-12 Evi present d 02-12 13:30:00 Hai 13:30: [id number] 00 Safety fall risk Safety Resolve 2019-02-12 Evi factor d 02-12 13:30:00 Hai present 13:30: [id number] 00 Safety risk for Safety Resolve 2019-07-02 Evi hospitaliza d 02-12 11:45:00 Hai tion 13:30: [id number] 00 Respiratory smoker Respirator Resolve 2019-02-19 Evi y d 02-19 14:00:00 Hai 14:00: [id number] 00 Integument knowledge/s Integument Resolve 2019-02-27 Evi kill d 02-19 11:00:00 Hai deficit: pt 14:00: [id number] 00 Respiratory nebulizer Respirator Unknown Evi treatment y 7-31 Hai in home 11:00: [id number] 00 Respiratory smoker Respirator Resolve 2019-03-05 Evi y d 8 13:00:00 Hai 13:00: [id number] 00 Respiratory lung sounds Respirator Resolve 2019-04-09 Evi deficit y d 8 14:30:00 Hai 13:00: [id number] 00 Endo/Hugo glucose Endo/Hugo Resolve 2019-03-19 Evi tolerance d 03-05 13:30:00 Hai problem 13:00: [id number] 00 Endo/Hugo knowledge/s Endo/Hugo Resolve 2019-03-19 Evi kill d 03-05 13:30:00 Hai deficit 13:00: [id number] hypo/hyperg 00 lycemia: pt Integument other wound Integument Resolve 2019-03-05 Evi present d 03-05 13:00:00 Hai 13:00: [id number] 00 Respiratory oxygen Respirator Resolve 2019-03-26 Evi treatments y d 8-13 16:55:00 Hai in home 13:00: [id number] 00 Respiratory nebulizer Respirator Resolve 2019-03-26 Evi treatment y d 8-13 16:55:00 Hai in home 13:00: [id number] 00 Respiratory oxygen Respirator Resolve 2019-04-09 Evi treatments y d 903 14:30:00 Hai in home 12:15: [id number] 00 Respiratory nebulizer Respirator Resolve 2019-04-09 Evi treatment y d 9 14:30:00 Hai in home 12:15: [id number] 00 Endo/Hugo knowledge/s Endo/Hugo Resolve 2019-06-25 Evi kill d 04-02 12:00:00 Hai deficit: pt 12:15: [id number] 00 Endo/Hugo knowledge/s Endo/Hugo Resolve 2019-06-25 Evi kill d 04-02 12:00:00 Hai deficit 12:15: [id number] hypo/hyperg 00 lycemia: pt Respiratory smoker Respirator Resolve 2019-04-09 Evi y d 04-09 14:30:00 Hai 14:30: [id number] 00 Endo/Hugo glucose Endo/Hugo Resolve 2019-04-09 Evi tolerance d 9-10 14:30:00 Hai problem 14:30: [id number] 00 Respiratory oxygen Respirator Resolve 2019-04-23 Evi treatments y d 9-16 14:15:00 Hai in home 14:00: [id number] 00 Respiratory smoker Respirator Resolve 2019-04-23 Evi y d 9-16 14:15:00 Hai 14:00: [id number] 00 Respiratory nebulizer Respirator Resolve 2019-04-23 Evi treatment y d 9-16 14:15:00 Hai in home 14:00: [id number] 00 Endo/Hugo anti-coagul Endo/Hugo Resolve 2019-04-23 Evi ation d 9- 14:15:00 Hai therapy 14:00: [id number] 00 Endo/Hugo glucose Endo/Hugo Resolve 2019-04-23 Evi tolerance d 24 14:15:00 Hai problem 14:15: [id number] 00 Respiratory lung sounds Respirator Resolve 2018-072019-05-07 Evi deficit y d 0-01 15:20:00 Hai 11:06: [id number] 00 Respiratory smoker Respirator Resolve 2018-072019-05-07 Evi y d 0-01 15:20:00 Hai 11:06: [id number] 00 Respiratory oxygen Respirator Resolve 2018-072019-05-15 Evi treatments y d 0-08 10:00:00 Hai in home 15:20: [id number] 00 Respiratory nebulizer Respirator Resolve 2018-072019-05-15 Evi treatment y d 0-08 10:00:00 Hai in home 15:20: [id number] 00 Respiratory lung sounds Respirator Resolve 2018-072019-05-15 Evi deficit y d 0-16 10:00:00 Hai 10:00: [id number] 00 Respiratory lung sounds Respirator Resolve 2018-072019-05-28 Evi deficit y d 0-23 13:15:00 Hai 09:30: [id number] 00 Respiratory oxygen Respirator Resolve 2018-072019-08-13 Evi treatments y d 0-29 10:50:00 Hai in home 13:15: [id number] 00 Respiratory nebulizer Respirator Resolve 2018-072019-08-13 Evi treatment y d 0-29 10:50:00 Hai in home 13:15: [id number] 00 Respiratory smoker Respirator Resolve 2018-072019-05-28 Evi y d 0-29 13:15:00 Hai 13:15: [id number] 00 Respiratory lung sounds Respirator Resolve 2018-072019-06-04 Evi deficit y d 1-05 12:00:00 Hai 12:00: [id number] 00 Respiratory lung sounds Respirator Resolve 2018-072019-06-25 Evi deficit y d 1-11 12:00:00 Hai 11:00: [id number] 00 Respiratory smoker Respirator Resolve 2018-072019-06-18 Evi y d 1-11 12:45:00 Hai 11:00: [id number] 00 Integument other wound Integument Resolve 2018-072019-06-18 Evi present d 1-11 12:45:00 Hai 11:00: [id number] 00 Safety fall risk Safety Resolve 2018-072019-06-25 Evi factor d 1-11 12:00:00 Hai present 11:00: [id number] 00 Respiratory smoker Respirator Resolve 2018-072019-06-25 Evi y d 1- 12:00:00 Hai 12:00: [id number] 00 Neuro anxiety Neuro/Emot Active 2018-07 Evi present ion - Hai 12:00: [id number] 00 Neuro memory Neuro/Emot Active 2018-07 Evi deficit ion - Hai needing 12:00: [id number] 00 Respiratory smoker Respirator Resolve 2018-072019-07-30 Evi y d 2-03 11:00:00 Hai 11:45: [id number] 00 Respiratory lung sounds Respirator Resolve 2018-072019-07-30 Evi deficit y d 2-11 11:00:00 Hai 13:05: [id number] 00 Safety risk for Safety Resolve 2018-072019-07-10 Evi hospitaliza d 2-11 13:05:00 Hai tion 13:05: [id number] 00 Safety risk for Safety Resolve 2018-072019-07-23 Evi [facility] d 09-16 11:00:00 Hai tion 15:00: [id number] 00 Safety risk for Safety Resolve 2018-072019-07-30 Evi [facility] d 11:00:00 Hai tion 11:00: [id number] 00 Safety risk for Safety Resolve 2019-08-13 Evi [facility] d 08-06 10:50:00 Hai tion 12:30: [id number] 00 Medication potential Meds Active 2019-0 Evi clinically 08-06 Hai significant 12:30: [id number] medication 00 issue Cardio hypertensio Cardiovasc Active 2019- Evi n ular 08-13 Hai 10:50: [id number] 00 Respiratory knowledge/s Respirator Resolve 2019-0 2019-08-13 Evi kill y d 08-13 10:50:00 Hai deficit: pt 10:50: [id number] 00 Respiratory lung sounds Respirator Resolve 2019-0 2019-08-13 Evi deficit y d 08-13 10:50:00 Hia 10:50: [id number] 00 Respiratory smoker Respirator Resolve 2019-0 2019-08-13 Evi y d 08-13 10:50:00 Hai 10:50: [id number] 00 Integument other wound Integument Active 2019- Evi present 08-13 Hai 10:50: [id number] 00 Neuro depressive Neuro/Emot Active Evi feelings ion - Hai present 10:50: [id number] 00 Medication knowledge/s Meds Active 2019-0 Evi kill -14 Hai deficit: pt 10:50: [id number] 00 Respiratory oxygen Respirator Active 2019-0 Evi treatments y 1-21 Hai in home 13:20: [id number] 00 Respiratory knowledge/s Respirator Active 2019-0 Evi kill y 1-21 Hai deficit: pt 13:20: [id number] 00 Respiratory lung sounds Respirator Active 2019-0 Evi deficit y 1-21 Hai 13:20: [id number] 00 Respiratory smoker Respirator Active 2019-0 Evi y 1-21 Hai 13:20: [id number] 00 Respiratory nebulizer Respirator Active 2019-0 Evi treatment y 1-21 Hai in home 13:20: [id number] 00 Endo/Hugo glucose Endo/Hugo Active Evi tolerance 1-21 Hai problem 13:20: [id number] 00 Endo/Hugo knowledge/s Endo/Hugo Active Evi kill 1-21 Hai deficit: pt 13:20: [id number] 00 Endo/Hugo knowledge/s Endo/Hugo Active Evi kill 1-21 Hai deficit 13:20: [id number] hypo/hyperg 00 lycemia: pt Allergies, Adverse Reactions, [...] liter Unknown permeable permeable 09-04 ,Leroy lens prescription clerk lenses cotton cleaner liquid liquid FLUoxetine FLUoxetine No Darlow [...]
--- OUTSIDE RECORDS SUMMARY | 2019-09-17 05:42 | XMS REPORT ---
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 hyperglycem hyperglycem ia ia Chronic Chronic Diagnosis Active Evi obstructive obstructive 2- Hai pulmonary pulmonary [id number] disease, disease, unspecified unspecified Essential Essential Diagnosis Active Evi (primary) (primary) 2- Hai hypertensio hypertensio [id number] n n Other Other Diagnosis Active Evi chronic chronic 2-05 Hai pain pain [id number] 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, disorder, 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, recurrent, unspecified unspecified Gastro-esop Gastro-esop Diagnosis Active Evi hageal hageal 2- Hai reflux reflux [id number] disease disease without without esophagitis esophagitis 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 [id number] Low back Low back Diagnosis Active Evi pain pain Hai [id number] Hyperlipide Hyperlipide Diagnosis Active Evi hank, hank, Hai unspecified unspecified [id number] Hypothyroid Hypothyroid Diagnosis Active Evi ism, ism, Hai unspecified unspecified [id number] Respiratory treatments Respirator Resolve 2016-10-17 Chelsea ordered y d 2- 12:30:00 Son [id number] Pain frequent Pain Mgmt Resolve 2018-08-28 Chelsea pain d 2- 12:45:00 Son 13:13: [id number] 00 Pain knowledge/s Pain Mgmt Resolve 2015-09-09 Chelsea kill d 09-04 10:40:00 Son deficit: pt 13:13: [id number] 00 Pain severe pain Pain Mgmt Resolve 29 Chelsea d 2-05 12:45:00 Son 13:13: [id number] 00 Respiratory dyspnea Respirator Resolve 2016-10-17 Chelsea present y d 2- 12:30:00 Son 13:13: [id number] 00 Respiratory oxygen Respirator Resolve 2016-10-17 Chelsea treatments y d 2- 12:30:00 Son in home 13:13: [id number] 00 Respiratory knowledge/s Respirator Resolve 2015-09-16 Chelsea kill y d 2- 12:00:00 Son deficit: pt 13:13: [id number] 00 Respiratory lung sounds Respirator Resolve 2016-06-29 Chelsea deficit y d 2 13:03:00 Son 13:13: [id number] 00 Endo/Hugo knowledge/s Endo/Hugo Resolve 2015-09-16 Chelsea kill d 2- 12:00:00 Son deficit: pt 13:13: [id number] 00 Endo/Hugo diabetic Endo/Hugo Resolve 2016-06-29 Chelsea foot care d 2- 13:03:00 Son 13:13: [id number] 00 Nutrition knowledge/s Nutrition Resolve 2015-09-04 Chelsea kill d 2 13:13:00 Son deficit: pt 13:13: [id number] 00 Neuro anxiety Neuro/Emot Resolve 2016-08-02 Chelsea present ion d 2- 10:30:00 Son 13:13: [id number] 00 Neuro depressive Neuro/Emot Resolve 2016-08-02 Chelsea feelings ion d 2- 10:30:00 Son present 13:13: [id number] 00 Neuro knowledge/s Neuro/Emot Resolve 2015-09-16 Chelsea kill ion d 2- 12:00:00 Son deficit: pt 13:13: [id number] 00 Activity ADL Activity Resolve 2016-04-27 Chelsea assistance d 2- 11:15:00 Son required 13:13: [id number] 00 Activity knowledge/s Activity Resolve 2016-03-01 Chelsea kill d 2- 12:00:00 Son deficit: pt 13:13: [id number] 00 Safety fall risk Safety Resolve 2015-09-16 Chelsea factor d 2-05 12:00:00 Cline present 13:13: [id number] 00 Safety risk for Safety Resolve 2015-09-16 Chelsea hospitaliza d 2-05 12:00:00 Cline tion 13:13: [id number] 00 Medication oral med Meds Resolve 2016-08-02 Chelsea assistance d 2-05 10:30:00 Cline required 13:13: [id number] 00 Medication injectable Meds Resolve 2016-08-02 Chelsea med d 2-05 10:30:00 Cline assistance 13:13: [id number] required 00 Medication knowledge/s Meds Resolve 2016-06-29 Chelsea kill d 2-05 13:03:00 Son deficit: pt 13:13: [id number] 00 Medication potential Meds Resolve 2016-08-02 Chelsea clinically d 2- 10:30:00 Son significant 13:13: [id number] medication 00 issue Diagnoses knowledge/s Diagnoses Active Chelsea kill - Cline deficit: pt 13:13: [id number] 00 Pain knowledge/s Pain Mgmt Resolve 2015-09-16 Cherrise kill d 2- 12:00:00 Willard deficit: pt 12:00: 00 Safety sanitation Safety Resolve 2016-03-01 Cherrise hazards d 2-17 12:00:00 Abbe present 12:00: [id number] 00 Safety risk for Safety Resolve 2016-03-01 Cherrise hospitaliza d 2-18 12:00:00 Willard tion 12:15: [id number] 00 Neuro knowledge/s Neuro/Emot Resolve 2016-08-16 Cherrise kill ion d 2- 12:45:00 Willard deficit: pt 13:29: [id number] Safety structural Safety Resolve 2016-03-01 Cherrise barriers d 2- 12:00:00 Willard present 13:29: [id number] 57 Respiratory knowledge/s Respirator Resolve 2016-04-27 Chelsea kill y d 10-27 11:15:00 Son deficit: cg 09:40: [id number] 00 Pain frequent Pain Mgmt Resolve 2018-08-28 Chelsea pain d 11-03 12:45:00 Son 13:04: [id number] 00 Pain knowledge/s Pain Mgmt Resolve 2016-02-24 Chelsea kill d 11-03 13:35:00 Son deficit: pt 13:04: [id number] 00 Respiratory knowledge/s Respirator Resolve 2016-04-27 Chelsea kill y d 11-03 11:15:00 Son deficit: pt 13:04: [id number] 00 Safety fall risk Safety Resolve 2016-03-01 Chelsea factor d 11-03 12:00:00 Son present 13:04: [id number] 00 Endo/Hugo insulin Endo/Hugo Resolve 2016-10-17 Chelsea admn d 11-24 12:30:00 Son dependence 10:48: [id number] 00 Safety safety Safety Resolve 2016-03-01 Chelsea hazards d 12-22 12:00:00 Cline present 09:15: [id number] 00 Elimination constipatio Eliminatio Resolve 2016-03-01 Chelsea n n d 12-29 12:00:00 Son 13:33: [id number] 00 IV IV present IV Resolve 2016-01-26 Chelsea d 12-29 11:50:00 Son 13:33: [id number] 00 Integument skin Integument Resolve 2016-04-27 Anna integrity d 01-25 11:15:00 Regeczi risk 11:50: [id number] 00 Nutrition knowledge/s Nutrition Resolve 2016-03-01 Cherrise kill d 02-26 12:00:00 Abbe deficit: pt 10:00: [id number] 00 Pain frequent Pain Mgmt Resolve 2018-08-28 Chelsea pain d 03-01 12:45:00 Son 12:00: [id number] 00 Nutrition knowledge/s Nutrition Resolve 2016-04-06 Neida kill d 03-23 14:54:00 Malnoske deficit: pt 13:30: RN 00 Endo/Hugo insulin Endo/Hugo Resolve 2016-10-17 Chelsea admn d 04-06 12:30:00 Cline dependence 14:54: [id number] 00 Nutrition changing Nutrition Resolve 2016-05-10 Chelsea weight/appe d 04-27 11:45:00 Son tite 11:15: [id number] 00 Nutrition knowledge/s Nutrition Resolve 2016-04-27 Chelsea kill d 04-27 11:15:00 Son deficit: pt 11:15: [id number] 00 Cardio hypertensio Cardiovasc Resolve 2016-09-20 Evi n ular d 08-02 10:00:00 Hai 10:30: [id number] 00 Respiratory lung sounds Respirator Resolve 2016-08-25 Evi deficit y d 08-02 10:30:00 Hai 10:30: [id number] 00 Respiratory CPAP Respirator Resolve 2016-10-17 Evi treatments y d 08-02 12:30:00 Hai in home 10:30: [id number] 00 Respiratory dyspnea Respirator Resolve 2016-10-17 Evi present y d 08-02 12:30:00 Hai 10:30: [id number] 00 Respiratory oxygen Respirator Resolve 2016-10-17 Evi treatments y d 08-02 12:30:00 Hai in home 10:30: [id number] 00 Integument knowledge/s Integument Resolve 2016-08-16 Evi kill d 08-02 12:45:00 Hai deficit: pt 10:30: [id number] 00 Medication knowledge/s Meds Resolve 2016-08-25 Evi kill d 08-02 10:30:00 Hai deficit: pt 10:30: [id number] 00 Neuro anxiety Neuro/Emot Resolve 2016-10-17 Evi present ion d 08-16 12:30:00 Hai 12:45: [id number] 00 Integument knowledge/s Integument Resolve 2016-08-25 Evi kill d 08-25 10:30:00 Hai deficit: pt 10:30: [id number] 00 Nutrition nutritional Nutrition Resolve 2016-08-25 Evi restriction d 08-25 10:30:00 Hia s 10:30: [id number] 00 Neuro knowledge/s Neuro/Emot Resolve 2016-2016-08-25 Evi kill ion d 08-25 10:30:00 Hai deficit: pt 10:30: [id number] 00 Medication oral med Meds Resolve 2016-08-25 Evi assistance d 08-25 10:30:00 Hai required 10:30: [id number] 00 Respiratory oxygen Respirator Unknown Evi treatments y 2-06 Hai in home 14:30: [id number] 00 Integument knowledge/s Integument Resolve 2016-09-05 Evi kill d 09-05 14:30:00 Hai deficit: pt 14:30: [id number] 00 Medication oral med Meds Resolve 2016-10-17 Evi assistance d 09-05 12:30:00 Hai required 14:30: [id number] 00 Medication knowledge/s Meds Resolve 2016-12-05 Evi kill d 09-05 17:00:00 Hai deficit: pt 14:30: [id number] 00 Respiratory lung sounds Respirator Resolve 2016-09-20 Evi deficit y d 2- 10:00:00 Hai 10:00: [id number] 00 Integument knowledge/s Integument Resolve 2016-10-17 Evi kill d 2- 12:30:00 Hai deficit: pt 10:00: [id number] 00 Integument other wound Integument Resolve 2016-10-17 Evi present d 2- 12:30:00 Hai 10:00: [id number] 00 Respiratory lung sounds Respirator Resolve 2018-10-09 Evi deficit y d 3-06 12:40:00 Hai 15:00: [id number] 00 Respiratory CPAP Respirator Unknown Evi treatments y 3-06 Hai in home 15:00: [id number] 00 Respiratory smoker Respirator Resolve 2016-10-17 Evi y d 3-06 12:30:00 Hai 15:00: [id number] 00 Respiratory nebulizer Respirator Unknown Evi treatment y 3-06 Hai in home 15:00: [id number] 00 Respiratory dyspnea Respirator Resolve 2016-11-07 Evi present y d 10-25 12:20:00 Hai 14:15: [id number] 00 Respiratory oxygen Respirator Unknown Evi treatments y 10-25 Hai in home 14:15: [id number] 00 Respiratory smoker Respirator Resolve 2016-11-07 Evi y d 10-25 12:20:00 Hai 14:15: [id number] 00 Integument other wound Integument Resolve 2016-10-25 Evi present d 10-25 14:15:00 Hai 14:15: [id number] 00 Nutrition nutritional Nutrition Resolve 2016-11-07 Evi restriction d 10-25 12:20:00 Hai s 14:15: [id number] 00 Neuro anxiety Neuro/Emot Resolve 2016-11-07 Evi present ion d 10-25 12:20:00 Hai 14:15: [id number] 00 Medication oral med Meds Resolve 2016-12-05 Evi assistance d 10-25 17:00:00 Hai required 14:15: [id number] 00 Medication potential Meds Resolve 2016-12-05 Evi clinically d 11-07 17:00:00 Hai significant 12:20: [id number] medication 00 issue Respiratory dyspnea Respirator Resolve 2016-11-21 Evi present y d 11-14 13:30:00 Hai 14:00: [id number] 00 Respiratory oxygen Respirator Unknown Evi treatments y 11-21 Hai in home 13:30: [id number] 00 Respiratory lung sounds Respirator Resolve 2018-10-09 Evi deficit y d 11-21 12:40:00 Hai 13:30: [id number] 00 Respiratory smoker Respirator Resolve 2016-11-21 Evi y d 11-21 13:30:00 Hai 13:30: [id number] 00 Respiratory nebulizer Respirator Unknown Evi treatment y 11-21 Hai in home 13:30: [id number] 00 Neuro anxiety Neuro/Emot Resolve 2016-12-25 Evi present ion d 11-21 13:30:00 Hai 13:30: [id number] 00 Respiratory oxygen Respirator Resolve 2018-09-18 Evi treatments y d 12-05 13:30:00 Hai in home 17:00: [id number] 00 Respiratory smoker Respirator Resolve 2016-12-05 Evi y d 12-05 17:00:00 Hai 17:00: [id number] 00 Respiratory nebulizer Respirator Resolve 2018-09-18 Evi treatment y d 12-05 13:30:00 Hai in home 17:00: [id number] 00 Endo/Hugo knowledge/s Endo/Hugo Resolve 2016-12-19 Evi kill d 12-05 13:00:00 Hai deficit: pt 17:00: [id number] 00 Medication knowledge/s Meds Resolve 2016-12-25 Evi kill d 12-19 13:30:00 Hai deficit: pt 13:00: [id number] 00 Respiratory dyspnea Respirator Resolve 2017-02-27 Evi present y d 12-25 12:30:00 Hai 13:30: [id number] 00 Integument other wound Integument Resolve 2017-01-02 Evi present d 12-25 11:50:00 Hai 13:30: [id number] 00 Medication knowledge/s Meds Resolve 2016-12-25 Evi kill d 12-25 13:30:00 Hai deficit: pt 13:30: [id number] 00 Respiratory smoker Respirator Resolve 2017-01-16 Evi y d 01-16 15:00:00 Hai 15:00: [id number] 00 Respiratory lung sounds Respirator Resolve 2017-02-13 Evi deficit y d 02-13 12:45:00 Hai 12:45: [id number] 00 Respiratory smoker Respirator Resolve 2017-02-13 Evi y d 02-13 12:45:00 Hai 12:45: [id number] 00 Respiratory smoker Respirator Resolve 2017-02-27 Evi y d 02-24 12:30:00 Hai 13:00: [id number] 00 Integument other wound Integument Resolve 2017-02-24 Evi present d 02-24 13:00:00 Hai 13:00: [id number] 00 Nutrition nutritional Nutrition Resolve 2017-04-03 Tammee restriction d - 12:25:00 Eric garcia 13:00: an 00 Integument other wound Integument Resolve 2017-05-01 Evi present d 04-25 12:15:00 Hai 13:00: [id number] 00 Neuro depressive Neuro/Emot Resolve 2017-05-01 Evi feelings ion d 04-25 12:15:00 Hai present 13:00: [id number] 00 Neuro anxiety Neuro/Emot Resolve 2017-05-01 Evi present ion d 04-25 12:15:00 Hai 13:00: [id number] 00 Respiratory lung sounds Respirator Resolve 2016-072017-05-01 Evi deficit y d 0- 12:15:00 Hai 12:15: [id number] 00 Respiratory smoker Respirator Resolve 2016-072017-06-12 Evi y d 1- 11:14:00 Hai 11:14: [id number] 00 Respiratory smoker Respirator Resolve 2016-072017-06-21 Evi y d 08-21 11:15:00 Hai 11:15: [id number] 00 Integument other wound Integument Resolve 2016-072017-06-21 Evi present d 08-21 11:15:00 Hai 11:15: [id number] 00 Respiratory lung sounds Respirator Resolve 2016-072017-06-26 Evi deficit y d 08-26 12:15:00 Hai 12:15: [id number] 00 Respiratory lung sounds Respirator Unknown 2016-07 Evi deficit y 2-11 Hai 12:20: [id number] 00 Respiratory smoker Respirator Resolve 2016-072017-08-03 Evi y d 2-28 11:30:00 Hia 12:10: [id number] 00 Respiratory lung sounds Respirator Resolve 2017-08-03 Evi deficit y d 1- 11:30:00 Hai 11:30: [id number] 00 Respiratory lung sounds Respirator Resolve 2017-08-07 Evi deficit y d 1- 10:20:00 Hai 10:20: [id number] 00 Respiratory smoker Respirator Resolve 2017-08-07 Evi y d 1-08 10:20:00 Hai 10:20: [id number] 00 Respiratory lung sounds Respirator Resolve 2017-2017-08-14 Evi deficit y d 1-15 11:30:00 Hai 11:30: [id number] 00 Respiratory smoker Respirator Resolve 2017-2017-08-14 Evi y d 1-15 11:30:00 Hai 11:30: [id number] 00 Integument other wound Integument Resolve 2017-2017-08-21 Evi present d 1- 10:50:00 Hai 10:50: [id number] 00 Respiratory smoker Respirator Resolve 2017-2017-09-04 Evi y d 1- 12:40:00 Hai 12:30: [id number] 00 Respiratory lung sounds Respirator Resolve 2017-09-11 Evi deficit y d 2-12 13:00:00 Hai 13:00: [id number] 00 Respiratory lung sounds Respirator Resolve 2017-09-20 Evi deficit y d 2-21 11:15:00 Hai 11:15: [id number] 00 Respiratory lung sounds Respirator Resolve 2017-2017-09-27 Evi deficit y d 2-28 11:45:00 Hai 11:45: [id number] 00 Respiratory lung sounds Respirator Resolve 2017-10-18 Evi deficit y d 3-21 11:00:00 Hai 11:00: [id number] 00 Respiratory smoker Respirator Resolve 2017-10-18 Evi y d 3-21 11:00:00 Hai 11:00: [id number] 00 Integument other wound Integument Resolve 2017-10-25 Evi present d 3-21 11:00:00 Hai 11:00: [id number] 00 Respiratory lung sounds Respirator Resolve 2018-10-09 Evi deficit y d 4-10 12:40:00 Hai 14:45: [id number] 00 Respiratory smoker Respirator Resolve 2017-2017-11-15 Evi y d 4-18 11:00:00 Hai 11:00: [id number] 00 Respiratory lung sounds Respirator Resolve 2017-2018-10-09 Evi deficit y d 4-25 12:40:00 Hai 13:40: [id number] 00 Respiratory smoker Respirator Resolve 2017-11-22 Evi y d 11-22 13:40:00 Hai 13:40: [id number] 00 Respiratory smoker Respirator Resolve 2017-12-06 Evi y d 12-06 13:15:00 Hai 13:15: [id number] 00 Respiratory lung sounds Respirator Resolve 2017-12-13 Evi deficit y d 12-13 13:00:00 Hai 13:00: [id number] 00 Respiratory lung sounds Respirator Resolve 2017-12-26 Evi deficit y d 12-20 12:05:00 Hai 13:15: [id number] 00 Integument other wound Integument Resolve 2017-12-26 Evi present d 12-20 12:05:00 Hai 13:15: [id number] 00 Respiratory lung sounds Respirator Resolve 2018-01-03 Evi deficit y d 06 12:38:00 Hai 12:38: [id number] 00 Respiratory lung sounds Respirator Resolve 2018-10-09 Evi deficit y d 6-13 12:40:00 Hai 15:00: [id number] 00 Respiratory smoker Respirator Resolve 2018-01-10 Evi y d 6-13 15:00:00 Hai 15:00: [id number] 00 Respiratory lung sounds Respirator Resolve 2018-01-24 Evi deficit y d 6- 13:10:00 Hai 13:10: [id number] 00 Nutrition nutritional Nutrition Resolve 2019-08-13 Evi restriction d 6 10:50:00 Hai s 13:10: [id number] 00 Safety sanitation Safety Resolve 2018-06-05 Evi hazards d 6- 10:35:00 Hai present 13:10: [id number] 00 Safety fall risk Safety Resolve 2018-02-19 Evi factor d 6 14:02:00 Hai present 13:10: [id number] 00 Safety risk for Safety Resolve 2018-10-30 Evi hospitaliza d 01-24 13:06:00 Hai tion 13:10: [id number] 00 Safety structural Safety Resolve 2018-02-19 Evi barriers d 01-24 14:02:00 Hai present 13:10: [id number] 00 Safety safety Safety Resolve 2018-02-19 Evi hazards d 01-24 14:02:00 Hai present 13:10: [id number] 00 Medication oral med Meds Active Evi assistance 01-24 Hai required 13:10: [id number] 00 Medication injectable Meds Active Evi med 01-24 Hai assistance 13:10: [id number] 00 Respiratory lung sounds Respirator Resolve 2018-10-09 Evi deficit y d 01-29 12:40:00 Hai 13:45: [id number] 00 Respiratory smoker Respirator Resolve 2018-02-07 Evi y d 01-29 13:00:00 Hai 13:45: [id number] 00 Respiratory smoker Respirator Resolve 2018-03-01 Evi y d 02-19 11:42:00 Hai 14:02: [id number] 00 Integument other wound Integument Resolve 2018-03-21 Evi present d 02-19 15:30:00 Hai 14:02: [id number] 00 Respiratory smoker Respirator Resolve 2018-03-28 Evi y d 03-28 11:36:00 Hai 11:36: [id number] 00 Respiratory smoker Respirator Resolve 2018-04-03 Evi y d 04-03 14:00:00 Hai 14:00: [id number] 00 Respiratory smoker Respirator Resolve 2018-04-10 Evi y d 04-10 14:40:00 Hai 14:40: [id number] 00 Integument other wound Integument Resolve 2018-04-24 Evi present d 04-18 10:16:00 Hai 11:00: [id number] 00 Respiratory smoker Respirator Resolve 2017-072018-05-16 Evi y d 0 14:20:00 Hai 10:50: [id number] 00 Respiratory smoker Respirator Resolve 2017-072018-05-29 Evi y d 11:30:00 Hai 11:30: [id number] 00 Respiratory smoker Respirator Resolve 2017-072018-06-05 Evi y d 08-05 10:35:00 Hai 10:35: [id number] 00 Safety safety Safety Resolve 2017-072018-06-05 Evi hazards d 08-05 10:35:00 Hai present 10:35: [id number] 00 Integument other wound Integument Resolve 2017-072018-06-26 Evi present d 08-19 15:15:00 Hai 11:12: [id number] 00 Respiratory smoker Respirator Resolve 2017-072018-06-26 Evi y d 08-26 15:15:00 Hai 15:15: [id number] 00 Respiratory smoker Respirator Resolve 2017-072018-07-03 Evi y d 09-03 11:13:00 Hai 11:13: [id number] 00 Respiratory smoker Respirator Resolve 2017-072018-07-17 Evi y d 09-10 11:38:00 Hai 11:20: [id number] 00 Respiratory smoker Respirator Resolve 2017-072018-07-23 Evi y d 09-23 10:00:00 Hai 10:00: [id number] 00 Integument other wound Integument Resolve 2018-08-14 Evi present d 08-14 15:44:00 Hai 15:44: [id number] 00 Pain frequent Pain Mgmt Resolve 2018-08-28 Evi pain d 08-25 12:45:00 Hai 09:33: [id number] 56 Pain severe pain Pain Mgmt Resolve 2018-08-28 Evi d 08-25 12:45:00 Hai 09:33: [id number] 56 Integument other wound Integument Resolve 2018-08-28 Evi present d 08-25 12:45:00 Hai 09:33: [id number] 56 Respiratory smoker Respirator Resolve 2018-08-28 Evi y d 08-28 12:45:00 Hai 12:45: [id number] 00 Respiratory smoker Respirator Resolve 2018-09-04 Evi y d 09-04 11:30:00 Hai 11:30: [id number] 00 Respiratory smoker Respirator Resolve 2018-09-18 Eiv y d 09-10 13:30:00 Hai 16:40: [id number] 00 Pain severe pain Pain Mgmt Resolve 2018-09-25 Evi d 2-19 10:30:00 Hai 13:30: [id number] 00 Neuro anxiety Neuro/Emot Unknown Evi present ion 09-18 Hai 13:30: [id number] 00 Respiratory oxygen Respirator Resolve 2018-10-16 Evi treatments y d 3-05 11:45:00 Hai in home 10:45: [id number] 00 Respiratory smoker Respirator Resolve 2018-10-09 Evi y d 3-05 12:40:00 Hai 10:45: [id number] 00 Respiratory nebulizer Respirator Resolve 2018-10-16 Evi treatment y d - 11:45:00 Hai in home 10:45: [id number] 00 Respiratory lung sounds Respirator Resolve 2018-10-16 Evi deficit y d 3 11:45:00 Hai 11:45: [id number] 00 Respiratory smoker Respirator Resolve 2018-10-16 Evi y d 3 11:45:00 Hai 11:45: [id number] 00 Integument other wound Integument Resolve 2018-10-23 Evi present d 10-16 11:20:00 Hai 11:45: [id number] 00 Respiratory nebulizer Respirator Resolve 2018-10-23 Evi treatment y d 10-23 11:20:00 Hai in home 11:20: [id number] 00 Safety safety Safety Resolve 2018-10-23 Evi hazards d 10-23 11:20:00 Hai present 11:20: [id number] 00 Respiratory lung sounds Respirator Unknown Evi deficit y 10-30 Hai 13:06: [id number] 00 Respiratory oxygen Respirator Resolve 2018-11-20 Evi treatments y d 11-06 10:35:00 Hai in home 11:31: [id number] 00 Respiratory smoker Respirator Resolve 2018-2018-11-06 Evi y d 11-06 11:31:00 Ahi 11:31: [id number] 00 Respiratory nebulizer Respirator Resolve 2018-11-20 Evi treatment y d 11-06 10:35:00 Hai in home 11:31: [id number] 00 Safety risk for Safety Resolve 2018-11-12 Evi hospitaliza d 11-06 10:00:00 Hai tion 11:31: [id number] 00 Respiratory smoker Respirator Resolve 2018-11-20 Evi y d 11-12 10:35:00 Hai 10:00: [id number] 00 Respiratory lung sounds Respirator Resolve 2018-11-20 Evi deficit y d 11-20 10:35:00 Hai 10:35: [id number] 00 Safety risk for Safety Resolve 2018-11-27 Evi hospitaliza d 11-20 11:00:00 Hai tion 10:35: [id number] 00 Pain severe pain Pain Mgmt Resolve 2018-12-04 Evi d 11-27 11:35:00 Hai 11:00: [id number] 00 Respiratory oxygen Respirator Resolve 2018-12-12 Evi treatments y d 11-27 09:08:00 Hai in home 11:00: [id number] 00 Respiratory lung sounds Respirator Resolve 2018-12-04 Evi deficit y d 11-27 11:35:00 Hai 11:00: [id number] 00 Respiratory nebulizer Respirator Resolve 2018-12-12 Evi treatment y d 11-27 09:08:00 Hai in home 11:00: [id number] 00 Respiratory smoker Respirator Resolve 2018-12-04 Evi y d 12-04 11:35:00 Hai 11:35: [id number] 00 Safety risk for Safety Resolve 2018-12-12 Evi hospitaliza d 12-04 09:08:00 Hai tion 11:35: [id number] 00 Cardio hypertensio Cardiovasc Resolve 2018-12-18 Evi n ular d 12-12 14:00:00 Hai 09:08: [id number] 00 Respiratory lung sounds Respirator Resolve 2018-12-12 Evi deficit y d 12-12 09:08:00 Hai 09:08: [id number] 00 Respiratory smoker Respirator Resolve 2018-12-12 Evi y d 5-15 09:08:00 Hai 09:08: [id number] 00 Integument other wound Integument Resolve 2018-12-18 Evi present d 5-15 14:00:00 Hai 09:08: [id number] 00 Safety risk for Safety Resolve 2019-01-01 Evi hospitaliza d 12-18 13:20:00 Hai tion 14:00: [id number] 00 Cardio hypertensio Cardiovasc Resolve 2018-2019-01-01 Evi n ular d 12-25 13:20:00 Hai 10:30: [id number] 00 Respiratory oxygen Respirator Resolve 2018-2019-01-08 Evi treatments y d 12-25 11:00:00 Hai in home 10:30: [id number] 00 Respiratory lung sounds Respirator Resolve 2018-2019-01-01 Evi deficit y d 12-25 13:20:00 Hai 10:30: [id number] 00 Respiratory nebulizer Respirator Resolve 2019-01-08 Evi treatment y d 12-25 11:00:00 Hai in home 10:30: [id number] 00 Cardio hypertensio Cardiovasc Resolve 2019-01-15 Evi n ular d - 12:05:00 Hai 11:00: [id number] 00 Respiratory smoker Respirator Resolve 2019-01-08 Evi y d 6- 11:00:00 Hai 11:00: [id number] 00 Respiratory lung sounds Respirator Resolve 2018-2019-01-08 Evi deficit y d 6- 11:00:00 Hai 11:00: [id number] 00 Safety risk for Safety Resolve 2019-01-15 Evi hospitaliza d - 12:05:00 Hai tion 11:00: [id number] 00 Respiratory lung sounds Respirator Unknown Evi deficit y 6 Hai 12:05: [id number] 00 Respiratory nebulizer Respirator Resolve 2018-2019-01-22 Evi treatment y d 6- 11:45:00 Hai in home 12:05: [id number] 00 Respiratory oxygen Respirator Resolve 2018-2019-01-22 Evi treatments y d 6 11:45:00 Hai in home 11:45: [id number] 00 Respiratory smoker Respirator Resolve 2019-01-22 Evi y d 6 11:45:00 Hai 11:45: [id number] 00 Respiratory lung sounds Respirator Resolve 2018-2019-02-05 Evi deficit y d 01-29 11:30:00 Hai 11:40: [id number] 00 Respiratory smoker Respirator Resolve 2019-02-05 Evi y d 01-29 11:30:00 Hai 11:40: [id number] 00 Respiratory nebulizer Respirator Resolve 2019-02-05 Evi treatment y d 01-29 11:30:00 Hai in home 11:40: [id number] 00 Pain severe pain Pain Mgmt Resolve 2019-02-12 Evi d 02-08 13:30:00 Hai 16:30: [id number] 00 Respiratory oxygen Respirator Resolve 2019-02-19 Evi treatments y d 02-12 14:00:00 Hai in home 13:30: [id number] 00 Respiratory nebulizer Respirator Resolve 2019-02-19 Evi treatment y d 02-12 14:00:00 Hai in home 13:30: [id number] 00 Integument other wound Integument Resolve 2019-02-12 Evi present d 02-12 13:30:00 Hai 13:30: [id number] 00 Safety fall risk Safety Resolve 2019-02-12 Evi factor d 02-12 13:30:00 Hai present 13:30: [id number] Safety risk for Safety Resolve 2019-07-02 Evi hospitaliza d 02-12 11:45:00 Hai tion 13:30: [id number] 00 Respiratory smoker Respirator Resolve 2019-02-19 Evi y d 02-19 14:00:00 Hai 14:00: [id number] 00 Integument knowledge/s Integument Resolve 2019-02-27 Evi kill d 02-19 11:00:00 Hai deficit: pt 14:00: [id number] 00 Respiratory nebulizer Respirator Unknown Evi treatment y 7-31 Hai in home 11:00: [id number] 00 Respiratory smoker Respirator Resolve 2019-03-05 Evi y d 8 13:00:00 Hai 13:00: [id number] 00 Respiratory lung sounds Respirator Resolve 2019-04-09 Evi deficit y d 8 14:30:00 Hai 13:00: [id number] Endo/Hugo glucose Endo/Hugo Resolve 2019-03-19 Evi tolerance d 03-05 13:30:00 Hai problem 13:00: [id number] 00 Endo/Hugo knowledge/s Endo/Hugo Resolve 2019-03-19 Evi kill d 03-05 13:30:00 Hia deficit 13:00: [id number] hypo/hyperg 00 lycemia: pt Integument other wound Integument Resolve 2019-03-05 Evi present d 03-05 13:00:00 Hai 13:00: [id number] 00 Respiratory oxygen Respirator Resolve 2019-03-26 Evi treatments y d 8-13 16:55:00 Hai in home 13:00: [id number] 00 Respiratory nebulizer Respirator Resolve 2019-03-26 Evi treatment y d 8-13 16:55:00 Hai in home 13:00: [id number] 00 Respiratory oxygen Respirator Resolve 2019-04-09 Evi treatments y d 903 14:30:00 Hai in home 12:15: [id number] 00 Respiratory nebulizer Respirator Resolve 2019-04-09 Evi treatment y d 9 14:30:00 Hai in home 12:15: [id number] 00 Endo/Hugo knowledge/s Endo/Hugo Resolve 2019-06-25 Evi kill d 04-02 12:00:00 Hai deficit: pt 12:15: [id number] 00 Endo/Hugo knowledge/s Endo/Hugo Resolve 2019-06-25 Evi kill d 04-02 12:00:00 Hai deficit 12:15: [id number] hypo/hyperg 00 lycemia: pt Respiratory smoker Respirator Resolve 2019-04-09 Evi y d 04-09 14:30:00 Hai 14:30: [id number] 00 Endo/Hugo glucose Endo/Hugo Resolve 2019-04-09 Evi tolerance d 9-10 14:30:00 Hai problem 14:30: [id number] 00 Respiratory oxygen Respirator Resolve 2019-04-23 Evi treatments y d 9-16 14:15:00 Hai in home 14:00: [id number] 00 Respiratory smoker Respirator Resolve 2019-04-23 Evi y d 9-16 14:15:00 Hai 14:00: [id number] 00 Respiratory nebulizer Respirator Resolve 2019-04-23 Evi treatment y d 9-16 14:15:00 Hai in home 14:00: [id number] 00 Endo/Hugo anti-coagul Endo/Hugo Resolve 2019-04-23 Evi ation d 9- 14:15:00 Hai therapy 14:00: [id number] 00 Endo/Hugo glucose Endo/Hugo Resolve 2019-04-23 Evi tolerance d 24 14:15:00 Hai problem 14:15: [id number] 00 Respiratory lung sounds Respirator Resolve 2018-072019-05-07 Evi deficit y d 0-01 15:20:00 Hai 11:06: [id number] 00 Respiratory smoker Respirator Resolve 2018-072019-05-07 Evi y d 0-01 15:20:00 Hai 11:06: [id number] 00 Respiratory oxygen Respirator Resolve 2018-072019-05-15 Evi treatments y d 0-08 10:00:00 Hai in home 15:20: [id number] 00 Respiratory nebulizer Respirator Resolve 2018-072019-05-15 Evi treatment y d 0-08 10:00:00 Hai in home 15:20: [id number] 00 Respiratory lung sounds Respirator Resolve 2018-072019-05-15 Evi deficit y d 0-16 10:00:00 Hai 10:00: [id number] 00 Respiratory lung sounds Respirator Resolve 2018-072019-05-28 Evi deficit y d 0-23 13:15:00 Hai 09:30: [id number] 00 Respiratory oxygen Respirator Resolve 2018-072019-08-13 Evi treatments y d 0-29 10:50:00 Hai in home 13:15: [id number] 00 Respiratory nebulizer Respirator Resolve 2018-072019-08-13 Evi treatment y d 0-29 10:50:00 Hai in home 13:15: [id number] 00 Respiratory smoker Respirator Resolve 2018-072019-05-28 Evi y d 0-29 13:15:00 Hai 13:15: [id number] 00 Respiratory lung sounds Respirator Resolve 2018-072019-06-04 Evi deficit y d 1-05 12:00:00 Hai 12:00: [id number] 00 Respiratory lung sounds Respirator Resolve 2018-072019-06-25 Evi deficit y d 1-11 12:00:00 Hai 11:00: [id number] 00 Respiratory smoker Respirator Resolve 2018-072019-06-18 Evi y d 1-11 12:45:00 Hai 11:00: [id number] 00 Integument other wound Integument Resolve 2018-072019-06-18 Evi present d 1-11 12:45:00 Hai 11:00: [id number] 00 Safety fall risk Safety Resolve 2018-072019-06-25 Evi factor d 1-11 12:00:00 Hai present 11:00: [id number] 00 Respiratory smoker Respirator Resolve 2018-072019-06-25 Evi y d 1- 12:00:00 Hai 12:00: [id number] 00 Neuro anxiety Neuro/Emot Active 2018-07 Evi present ion - Hai 12:00: [id number] 00 Neuro memory Neuro/Emot Active 2018-07 Evi deficit ion - Hai needing 12:00: [id number] 00 Respiratory smoker Respirator Resolve 2018-072019-07-30 Evi y d 2-03 11:00:00 Hai 11:45: [id number] 00 Respiratory lung sounds Respirator Resolve 2018-072019-07-30 Evi deficit y d 2-11 11:00:00 Hai 13:05: [id number] 00 Safety risk for Safety Resolve 2018-072019-07-10 Evi hospitaliza d 2-11 13:05:00 Hai tion 13:05: [id number] 00 Safety risk for Safety Resolve 2018-072019-07-23 [facility] d 2 11:00:00 Hai tion 15:00: [id number] 00 Safety risk for Safety Resolve 2018-072019-07-30 [facility] d 11:00:00 Hai tion 11:00: [id number] 00 Safety risk for Safety Resolve 2019-08-13 [facility] d 08-06 10:50:00 Hai tion 12:30: [id number] 00 Medication potential Meds Active Evi clinically 08-06 Hai significant 12:30: [id number] medication 00 issue Cardio hypertensio Cardiovasc Active Evi n ular 08-13 Hai 10:50: [id number] 00 Respiratory knowledge/s Respirator Resolve 2019-08-13 Evi kill y d 08-13 10:50:00 Hai deficit: pt 10:50: [id number] 00 Respiratory lung sounds Respirator Resolve 2019-08-13 Evi deficit y d 08-13 10:50:00 Hai 10:50: [id number] 00 Respiratory smoker Respirator Resolve 2019-08-13 Evi y d 08-13 10:50:00 Hai 10:50: [id number] 00 Integument other wound Integument Active Vei present 08-13 Hai 10:50: [id number] 00 Neuro depressive Neuro/Emot Active Evi feelings ion 08-13 Hai present 10:50: [id number] 00 Medication knowledge/s Meds Active Evi kill 08-13 Hai deficit: pt 10:50: [id number] 00 Allergies, Adverse Reactions, Alerts Allergy Allergy [...] mg Unknown 200 mg 200 mg 09-04 ,Leory capsule capsule Symbicort Symbicort No Darlow 2 puffs Unknown 160 mcg-4.5 160 mcg-4.5 09-04 ,Leroy mcg/actuati mcg/actuati on HFA on HFA aerosol aerosol inhaler inhaler FLUoxetine FLUoxetine No Darlow 40 mg Unknown 40 mg 40 mg 09-04 ,Leroy capsule capsule oxygen oxygen No Darlow 2 liter Unknown permeable permeable 09-04 ,Leroy lens brass cleaner press cleaner liquid liquid FLUoxetine FLUoxetine No Darlow [...]
--- OUTSIDE RECORDS SUMMARY | 2019-09-17 05:43 | XMS REPORT ---
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 [id number] disease, disease, unspecified unspecified Essential Essential Diagnosis Active Evi (primary) (primary) 2- Hai hypertensio hypertensio [id number] n n Other Other Diagnosis Active Evi chronic chronic 2-05 Hai pain pain [id number] 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, disorder, 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, recurrent, unspecified unspecified Gastro-esop Gastro-esop Diagnosis Active Evi hageal hageal 2- Hai reflux reflux [id number] disease disease without without esophagitis esophagitis 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 [id number] Low back Low back Diagnosis Active Evi pain pain Hai [id number] Hyperlipide Hyperlipide Diagnosis Active Evi hank, hank, Hai unspecified unspecified [id number] Hypothyroid Hypothyroid Diagnosis Active Evi ism, ism, Hai unspecified unspecified [id number] Respiratory treatments Respirator Resolve 2016-10-17 Chelsea ordered y d 2- 12:30:00 Son [id number] Pain frequent Pain Mgmt Resolve 2018-08-28 Chelsea pain d 2- 12:45:00 Son 13:13: [id number] 00 Pain knowledge/s Pain Mgmt Resolve 2015-09-09 Chelsea kill d 09-04 10:40:00 Son deficit: pt 13:13: [id number] 00 Pain severe pain Pain Mgmt Resolve 29 Chelsea d 2-05 12:45:00 Son 13:13: [id number] 00 Respiratory dyspnea Respirator Resolve 2016-10-17 Chelsea present y d 2- 12:30:00 Son 13:13: [id number] 00 Respiratory oxygen Respirator Resolve 2016-10-17 Chelsea treatments y d 2- 12:30:00 Son in home 13:13: [id number] 00 Respiratory knowledge/s Respirator Resolve 2015-09-16 Chelsea kill y d 2- 12:00:00 Son deficit: pt 13:13: [id number] 00 Respiratory lung sounds Respirator Resolve 2016-06-29 Chelsea deficit y d 2 13:03:00 Son 13:13: [id number] 00 Endo/Hugo knowledge/s Endo/Hugo Resolve 2015-09-16 Chelsea kill d 2- 12:00:00 Son deficit: pt 13:13: [id number] 00 Endo/Hugo diabetic Endo/Hugo Resolve 2016-06-29 Chelsea foot care d 2- 13:03:00 Son 13:13: [id number] 00 Nutrition knowledge/s Nutrition Resolve 2015-09-04 Chelsea kill d 2 13:13:00 Son deficit: pt 13:13: [id number] 00 Neuro anxiety Neuro/Emot Resolve 2016-08-02 Chelsea present ion d 2- 10:30:00 Son 13:13: [id number] 00 Neuro depressive Neuro/Emot Resolve 2016-08-02 Chelsea feelings ion d 2- 10:30:00 Son present 13:13: [id number] 00 Neuro knowledge/s Neuro/Emot Resolve 2015-09-16 Chelsea kill ion d 2- 12:00:00 Son deficit: pt 13:13: [id number] 00 Activity ADL Activity Resolve 2016-04-27 Chelsea assistance d 2- 11:15:00 Son required 13:13: [id number] 00 Activity knowledge/s Activity Resolve 2016-03-01 Chelsea kill d 2- 12:00:00 Son deficit: pt 13:13: [id number] 00 Safety fall risk Safety Resolve 2015-09-16 Chelsea factor d 2-05 12:00:00 Cline present 13:13: [id number] 00 Safety risk for Safety Resolve 2015-09-16 Chelsea hospitaliza d 2-05 12:00:00 Cline tion 13:13: [id number] 00 Medication oral med Meds Resolve 2016-08-02 Chelsea assistance d 2-05 10:30:00 Cline required 13:13: [id number] 00 Medication injectable Meds Resolve 2016-08-02 Chelsea med d 2-05 10:30:00 Cline assistance 13:13: [id number] 00 Medication knowledge/s Meds Resolve 2016-06-29 Chelsea kill d 2-05 13:03:00 Son deficit: pt 13:13: [id number] 00 Medication potential Meds Resolve 2016-08-02 Chelsea clinically d 2- 10:30:00 Son significant 13:13: [id number] medication 00 issue Diagnoses knowledge/s Diagnoses Active Chelsea kill - Cline deficit: pt 13:13: [id number] 00 Pain knowledge/s Pain Mgmt Resolve 2015-09-16 Cherrise kill d 2- 12:00:00 Abbe deficit: pt 12:00: [id number] 00 Safety sanitation Safety Resolve 2016-03-01 Cherrise hazards d 2-17 12:00:00 Abbe present 12:00: [id number] 00 Safety risk for Safety Resolve 2016-03-01 Cherrise hospitaliza d 2-18 12:00:00 Abbe tion 12:15: [id number] 00 Neuro knowledge/s Neuro/Emot Resolve 2016-08-16 Cherrise kill ion d 2- 12:45:00 Abbe deficit: pt 13:29: [id number] Safety structural Safety Resolve 2016-03-01 Cherrise barriers d 2- 12:00:00 Abbe present 13:29: [id number] 57 Respiratory knowledge/s Respirator Resolve 2016-04-27 Chelsea kill y d 10-27 11:15:00 Son deficit: cg 09:40: [id number] 00 Pain frequent Pain Mgmt Resolve 2018-08-28 Chelsea pain d 11-03 12:45:00 Son 13:04: [id number] 00 Pain knowledge/s Pain Mgmt Resolve 2016-02-24 Chelsea kill d 11-03 13:35:00 Son deficit: pt 13:04: [id number] 00 Respiratory knowledge/s Respirator Resolve 2016-04-27 Chelsea kill y d 11-03 11:15:00 Son deficit: pt 13:04: [id number] 00 Safety fall risk Safety Resolve 2016-03-01 Chelsea factor d 11-03 12:00:00 Son present 13:04: [id number] 00 Endo/Hugo insulin Endo/Hugo Resolve 2016-10-17 Chelsea admn d 11-24 12:30:00 Son dependence 10:48: [id number] 00 Safety safety Safety Resolve 2016-03-01 Chelsea hazards d 12-22 12:00:00 Cline present 09:15: [id number] 00 Elimination constipatio Eliminatio Resolve 2016-03-01 Chelsea n n d 12-29 12:00:00 Son 13:33: [id number] 00 IV IV present IV Resolve 2016-01-26 Chelsea d 12-29 11:50:00 Son 13:33: [id number] 00 Integument skin Integument Resolve 2016-04-27 Anna integrity d 01-25 11:15:00 Regeczi risk 11:50: [id number] 00 Nutrition knowledge/s Nutrition Resolve 2016-03-01 Cherrise kill d 02-26 12:00:00 Wilcox deficit: pt 10:00: [id number] 00 Pain frequent Pain Mgmt Resolve 2018-08-28 Chelsea pain d 03-01 12:45:00 Son 12:00: [id number] 00 Nutrition knowledge/s Nutrition Resolve 2016-04-06 Neida kill d 03-23 14:54:00 Malnoske deficit: pt 13:30: RN 00 Endo/Hugo insulin Endo/Hugo Resolve 2016-10-17 Chelsea admn d 04-06 12:30:00 Cline dependence 14:54: [id number] 00 Nutrition changing Nutrition Resolve 2016-05-10 Chelsea weight/appe d 04-27 11:45:00 Son tite 11:15: [id number] 00 Nutrition knowledge/s Nutrition Resolve 2016-04-27 Chelsea kill d 04-27 11:15:00 Son deficit: pt 11:15: [id number] 00 Cardio hypertensio Cardiovasc Resolve 2016-09-20 Evi n ular d 08-02 10:00:00 Hai 10:30: [id number] 00 Respiratory lung sounds Respirator Resolve 2016-08-25 Evi deficit y d 08-02 10:30:00 Hai 10:30: [id number] 00 Respiratory CPAP Respirator Resolve 2016-10-17 Evi treatments y d 08-02 12:30:00 Hai in home 10:30: [id number] 00 Respiratory dyspnea Respirator Resolve 2016-10-17 Evi present y d 08-02 12:30:00 Hai 10:30: [id number] 00 Respiratory oxygen Respirator Resolve 2016-10-17 Evi treatments y d 08-02 12:30:00 Hai in home 10:30: [id number] 00 Integument knowledge/s Integument Resolve 2016-08-16 Evi kill d 08-02 12:45:00 Hai deficit: pt 10:30: [id number] 00 Medication knowledge/s Meds Resolve 2016-08-25 Evi kill d 08-02 10:30:00 Hai deficit: pt 10:30: [id number] 00 Neuro anxiety Neuro/Emot Resolve 2016-10-17 Evi present ion d 08-16 12:30:00 Hai 12:45: [id number] 00 Integument knowledge/s Integument Resolve 2016-08-25 Evi kill d 08-25 10:30:00 Hai deficit: pt 10:30: [id number] 00 Nutrition nutritional Nutrition Resolve 2016-08-25 Evi restriction d 08-25 10:30:00 Hai s 10:30: [id number] 00 Neuro knowledge/s Neuro/Emot Resolve 2016-2016-08-25 Evi kill ion d 08-25 10:30:00 Hai deficit: pt 10:30: [id number] 00 Medication oral med Meds Resolve 2016-08-25 Evi assistance d 08-25 10:30:00 Hai required 10:30: [id number] 00 Respiratory oxygen Respirator Unknown Evi treatments y 2-06 Hai in home 14:30: [id number] 00 Integument knowledge/s Integument Resolve 2016-09-05 Evi kill d 09-05 14:30:00 Hai deficit: pt 14:30: [id number] 00 Medication oral med Meds Resolve 2016-10-17 Evi assistance d 09-05 12:30:00 Hai required 14:30: [id number] 00 Medication knowledge/s Meds Resolve 2016-12-05 Evi kill d 09-05 17:00:00 Hai deficit: pt 14:30: [id number] 00 Respiratory lung sounds Respirator Resolve 2016-09-20 Evi deficit y d 2- 10:00:00 Hai 10:00: [id number] 00 Integument knowledge/s Integument Resolve 2016-10-17 Evi kill d 2- 12:30:00 Hai deficit: pt 10:00: [id number] 00 Integument other wound Integument Resolve 2016-10-17 Evi present d 2- 12:30:00 Hai 10:00: [id number] 00 Respiratory lung sounds Respirator Resolve 2018-10-09 Evi deficit y d 3-06 12:40:00 Hai 15:00: [id number] 00 Respiratory CPAP Respirator Unknown Evi treatments y 3-06 Hai in home 15:00: [id number] 00 Respiratory smoker Respirator Resolve 2016-10-17 Evi y d 3-06 12:30:00 Hai 15:00: [id number] 00 Respiratory nebulizer Respirator Unknown Evi treatment y 3-06 Hai in home 15:00: [id number] 00 Respiratory dyspnea Respirator Resolve 2016-11-07 Evi present y d 10-25 12:20:00 Hai 14:15: [id number] 00 Respiratory oxygen Respirator Unknown Evi treatments y 10-25 Hai in home 14:15: [id number] 00 Respiratory smoker Respirator Resolve 2016-11-07 Evi y d 10-25 12:20:00 Hai 14:15: [id number] 00 Integument other wound Integument Resolve 2016-10-25 Evi present d 10-25 14:15:00 Hai 14:15: [id number] 00 Nutrition nutritional Nutrition Resolve 2016-11-07 Evi restriction d 10-25 12:20:00 Hai s 14:15: [id number] 00 Neuro anxiety Neuro/Emot Resolve 2016-11-07 Evi present ion d 10-25 12:20:00 Hai 14:15: [id number] 00 Medication oral med Meds Resolve 2016-12-05 Evi assistance d 10-25 17:00:00 Hai required 14:15: [id number] 00 Medication potential Meds Resolve 2016-12-05 Evi clinically d 11-07 17:00:00 Hai significant 12:20: [id number] medication 00 issue Respiratory dyspnea Respirator Resolve 2016-11-21 Evi present y d 11-14 13:30:00 Hai 14:00: [id number] 00 Respiratory oxygen Respirator Unknown Evi treatments y 11-21 Hai in home 13:30: [id number] 00 Respiratory lung sounds Respirator Resolve 2018-10-09 Evi deficit y d 11-21 12:40:00 Hai 13:30: [id number] 00 Respiratory smoker Respirator Resolve 2016-11-21 Vei y d 11-21 13:30:00 Hai 13:30: [id number] 00 Respiratory nebulizer Respirator Unknown Evi treatment y 11-21 Hai in home 13:30: [id number] 00 Neuro anxiety Neuro/Emot Resolve 2016-12-25 Evi present ion d 11-21 13:30:00 Hai 13:30: [id number] 00 Respiratory oxygen Respirator Resolve 2018-09-18 Evi treatments y d 12-05 13:30:00 Hai in home 17:00: [id number] 00 Respiratory smoker Respirator Resolve 2016-12-05 Evi y d 12-05 17:00:00 Hai 17:00: [id number] 00 Respiratory nebulizer Respirator Resolve 2018-09-18 Evi treatment y d 12-05 13:30:00 Hai in home 17:00: [id number] 00 Endo/Hugo knowledge/s Endo/Hugo Resolve 2016-12-19 Evi kill d 12-05 13:00:00 Hai deficit: pt 17:00: [id number] 00 Medication knowledge/s Meds Resolve 2016-12-25 Evi kill d 12-19 13:30:00 Hai deficit: pt 13:00: [id number] 00 Respiratory dyspnea Respirator Resolve 2017-02-27 Evi present y d 12-25 12:30:00 Hai 13:30: [id number] 00 Integument other wound Integument Resolve 2017-01-02 Evi present d 12-25 11:50:00 Hai 13:30: [id number] 00 Medication knowledge/s Meds Resolve 2016-12-25 Evi kill d 12-25 13:30:00 Hai deficit: pt 13:30: [id number] 00 Respiratory smoker Respirator Resolve 2017-01-16 Evi y d 01-16 15:00:00 Hai 15:00: [id number] 00 Respiratory lung sounds Respirator Resolve 2017-02-13 Evi deficit y d 02-13 12:45:00 Hai 12:45: [id number] 00 Respiratory smoker Respirator Resolve 2017-02-13 Evi y d 02-13 12:45:00 Hai 12:45: [id number] 00 Respiratory smoker Respirator Resolve 2017-02-27 Evi y d 02-24 12:30:00 Hai 13:00: [id number] 00 Integument other wound Integument Resolve 2017-02-24 Evi present d 02-24 13:00:00 Hai 13:00: [id number] 00 Nutrition nutritional Nutrition Resolve 2017-04-03 Tammee restriction d - 12:25:00 Eric garcia 13:00: an 00 Integument other wound Integument Resolve 2017-05-01 Evi present d 04-25 12:15:00 Hai 13:00: [id number] 00 Neuro depressive Neuro/Emot Resolve 2017-05-01 Evi feelings ion d 04-25 12:15:00 Hai present 13:00: [id number] 00 Neuro anxiety Neuro/Emot Resolve 2017-05-01 Evi present ion d 04-25 12:15:00 Hai 13:00: [id number] 00 Respiratory lung sounds Respirator Resolve 2016-072017-05-01 Evi deficit y d 0- 12:15:00 Hai 12:15: [id number] 00 Respiratory smoker Respirator Resolve 2016-072017-06-12 Evi y d 1- 11:14:00 Hai 11:14: [id number] 00 Respiratory smoker Respirator Resolve 2016-072017-06-21 Evi y d 08-21 11:15:00 Hai 11:15: [id number] 00 Integument other wound Integument Resolve 2016-072017-06-21 Evi present d 08-21 11:15:00 Hai 11:15: [id number] 00 Respiratory lung sounds Respirator Resolve 2016-072017-06-26 Evi deficit y d 08-26 12:15:00 Hai 12:15: [id number] 00 Respiratory lung sounds Respirator Unknown 2016-07 Evi deficit y 2-11 Hai 12:20: [id number] 00 Respiratory smoker Respirator Resolve 2016-072017-08-03 Evi y d 2-28 11:30:00 Hai 12:10: [id number] 00 Respiratory lung sounds Respirator Resolve 2017-08-03 Evi deficit y d 1- 11:30:00 Hai 11:30: [id number] 00 Respiratory lung sounds Respirator Resolve 2017-08-07 Evi deficit y d 1- 10:20:00 Hai 10:20: [id number] 00 Respiratory smoker Respirator Resolve 2017-08-07 Evi y d 1-08 10:20:00 Hai 10:20: [id number] 00 Respiratory lung sounds Respirator Resolve 2017-2017-08-14 Evi deficit y d 1-15 11:30:00 Hai 11:30: [id number] 00 Respiratory smoker Respirator Resolve 2017-2017-08-14 Evi y d 1-15 11:30:00 Hai 11:30: [id number] 00 Integument other wound Integument Resolve 2017-2017-08-21 Evi present d 1- 10:50:00 Hai 10:50: [id number] 00 Respiratory smoker Respirator Resolve 2017-2017-09-04 Evi y d 1- 12:40:00 Hai 12:30: [id number] 00 Respiratory lung sounds Respirator Resolve 2017-09-11 Evi deficit y d 2-12 13:00:00 Hai 13:00: [id number] 00 Respiratory lung sounds Respirator Resolve 2017-09-20 Evi deficit y d 2-21 11:15:00 Hai 11:15: [id number] 00 Respiratory lung sounds Respirator Resolve 2017-2017-09-27 Evi deficit y d 2-28 11:45:00 Hai 11:45: [id number] 00 Respiratory lung sounds Respirator Resolve 2017-10-18 Evi deficit y d 3-21 11:00:00 Hai 11:00: [id number] 00 Respiratory smoker Respirator Resolve 2017-10-18 Evi y d 3-21 11:00:00 Hai 11:00: [id number] 00 Integument other wound Integument Resolve 2017-10-25 Evi present d 3-21 11:00:00 Hai 11:00: [id number] 00 Respiratory lung sounds Respirator Resolve 2018-10-09 Evi deficit y d 4-10 12:40:00 Hai 14:45: [id number] 00 Respiratory smoker Respirator Resolve 2017-2017-11-15 Evi y d 4-18 11:00:00 Hai 11:00: [id number] 00 Respiratory lung sounds Respirator Resolve 2017-2018-10-09 Evi deficit y d 4-25 12:40:00 Hai 13:40: [id number] 00 Respiratory smoker Respirator Resolve 2017-11-22 Evi y d 11-22 13:40:00 Hai 13:40: [id number] 00 Respiratory smoker Respirator Resolve 2017-12-06 Evi y d 12-06 13:15:00 Hai 13:15: [id number] 00 Respiratory lung sounds Respirator Resolve 2017-12-13 Evi deficit y d 5 13:00:00 Hai 13:00: [id number] 00 Respiratory lung sounds Respirator Resolve 2017-12-26 Evi deficit y d 12-20 12:05:00 Hai 13:15: [id number] 00 Integument other wound Integument Resolve 2017-12-26 Evi present d 12-20 12:05:00 Hai 13:15: [id number] 00 Respiratory lung sounds Respirator Resolve 2018-01-03 Evi deficit y d 606 12:38:00 Hai 12:38: [id number] 00 Respiratory lung sounds Respirator Resolve 2018-10-09 Evi deficit y d 6-13 12:40:00 Hai 15:00: [id number] 00 Respiratory smoker Respirator Resolve 2018-01-10 Evi y d 6-13 15:00:00 Hai 15:00: [id number] 00 Respiratory lung sounds Respirator Resolve 2018-01-24 Evi deficit y d 6- 13:10:00 Hai 13:10: [id number] 00 Nutrition nutritional Nutrition Active Evi restriction 01-24 Hai s 13:10: [id number] 00 Safety sanitation Safety Resolve 2018-06-05 Evi hazards d 01-24 10:35:00 Hai present 13:10: [id number] 00 Safety fall risk Safety Resolve 2018-02-19 Evi factor d 01-24 14:02:00 Hai present 13:10: [id number] 00 Safety risk for Safety Resolve 2018-10-30 Evi hospitaliza d 01-24 13:06:00 Hai tion 13:10: [id number] 00 Safety structural Safety Resolve 2018-02-19 Evi barriers d 01-24 14:02:00 Hai present 13:10: [id number] 00 Safety safety Safety Resolve 2018-02-19 Evi hazards d 01-24 14:02:00 Hai present 13:10: [id number] 00 Medication oral med Meds Active Evi assistance 01-24 Hai required 13:10: [id number] 00 Medication injectable Meds Active Evi med 01-24 Hai assistance 13:10: [id number] required 00 Respiratory lung sounds Respirator Resolve 2018-10-09 Evi deficit y d 01-29 12:40:00 Hai 13:45: [id number] 00 Respiratory smoker Respirator Resolve 2018-02-07 Evi y d 01-29 13:00:00 Hai 13:45: [id number] 00 Respiratory smoker Respirator Resolve 2018-03-01 Evi y d 02-19 11:42:00 Hai 14:02: [id number] 00 Integument other wound Integument Resolve 2018-03-21 Evi present d 02-19 15:30:00 Hai 14:02: [id number] 00 Respiratory smoker Respirator Resolve 2018-03-28 Evi y d 03-28 11:36:00 Hai 11:36: [id number] 00 Respiratory smoker Respirator Resolve 2018-04-03 Evi y d 04-03 14:00:00 Hai 14:00: [id number] 00 Respiratory smoker Respirator Resolve 2018-04-10 Evi y d 04-10 14:40:00 Hai 14:40: [id number] 00 Integument other wound Integument Resolve 2018-04-24 Evi present d 04-18 10:16:00 Hai 11:00: [id number] 00 Respiratory smoker Respirator Resolve 2017-072018-05-16 Evi y d 0 14:20:00 Hai 10:50: [id number] 00 Respiratory smoker Respirator Resolve 2017-072018-05-29 Evi y d 0 11:30:00 Hai 11:30: [id number] 00 Respiratory smoker Respirator Resolve 2017-072018-06-05 Evi y d 08-05 10:35:00 Hai 10:35: [id number] 00 Safety safety Safety Resolve 2017-072018-06-05 Evi hazards d 08-05 10:35:00 Hai present 10:35: [id number] 00 Integument other wound Integument Resolve 2017-072018-06-26 Evi present d 08-19 15:15:00 Hai 11:12: [id number] 00 Respiratory smoker Respirator Resolve 2017-072018-06-26 Evi y d 08-26 15:15:00 Hai 15:15: [id number] 00 Respiratory smoker Respirator Resolve 2017-072018-07-03 Evi y d 09-03 11:13:00 Hai 11:13: [id number] 00 Respiratory smoker Respirator Resolve 2017-072018-07-17 Evi y d 09-10 11:38:00 Hai 11:20: [id number] 00 Respiratory smoker Respirator Resolve 2017-072018-07-23 Evi y d 09-23 10:00:00 Hai 10:00: [id number] 00 Integument other wound Integument Resolve 2018-08-14 Evi present d 08-14 15:44:00 Hai 15:44: [id number] 00 Pain frequent Pain Mgmt Resolve 2018-08-28 Evi pain d 08-25 12:45:00 Hai 09:33: [id number] 56 Pain severe pain Pain Mgmt Resolve 2018-08-28 Evi d 08-25 12:45:00 Hai 09:33: [id number] 56 Integument other wound Integument Resolve 2018-08-28 Evi present d 08-25 12:45:00 Hai 09:33: [id number] 56 Respiratory smoker Respirator Resolve 2018-08-28 Evi y d 08-28 12:45:00 Hai 12:45: [id number] 00 Respiratory smoker Respirator Resolve 2018-09-04 Evi y d 09-04 11:30:00 Hai 11:30: [id number] 00 Respiratory smoker Respirator Resolve 2018-2018-09-18 Evi y d 09-10 13:30:00 Hai 16:40: [id number] 00 Pain severe pain Pain Mgmt Resolve 2018-09-25 Evi d 2- 10:30:00 Hai 13:30: [id number] 00 Neuro anxiety Neuro/Emot Unknown Evi present ion 09-18 Hai 13:30: [id number] 00 Respiratory oxygen Respirator Resolve 2018-2018-10-16 Evi treatments y d 3- 11:45:00 Hai in home 10:45: [id number] 00 Respiratory smoker Respirator Resolve 2018-10-09 Evi y d 3- 12:40:00 Hai 10:45: [id number] 00 Respiratory nebulizer Respirator Resolve 2018-10-16 Evi treatment y d 10-02 11:45:00 Hai in home 10:45: [id number] 00 Respiratory lung sounds Respirator Resolve 2018-10-16 Evi deficit y d 10-16 11:45:00 Hai 11:45: [id number] 00 Respiratory smoker Respirator Resolve 2018-10-16 Evi y d 10-16 11:45:00 Hai 11:45: [id number] 00 Integument other wound Integument Resolve 2018-10-23 Evi present d 10-16 11:20:00 Hai 11:45: [id number] 00 Respiratory nebulizer Respirator Resolve 2018-10-23 Evi treatment y d 10-23 11:20:00 Hai in home 11:20: [id number] 00 Safety safety Safety Resolve 2018-10-23 Evi hazards d 10-23 11:20:00 Hai present 11:20: [id number] 00 Respiratory lung sounds Respirator Unknown Evi deficit y 10-30 Hai 13:06: [id number] 00 Respiratory oxygen Respirator Resolve 2018-11-20 Evi treatments y d 11-06 10:35:00 Hai in home 11:31: [id number] 00 Respiratory smoker Respirator Resolve 2018-11-06 Evi y d 11-06 11:31:00 Hai 11:31: [id number] 00 Respiratory nebulizer Respirator Resolve 2018-11-20 Evi treatment y d 11-06 10:35:00 Hai in home 11:31: [id number] 00 Safety risk for Safety Resolve 2018-11-12 Evi hospitaliza d 11-06 10:00:00 Hai tion 11:31: [id number] 00 Respiratory smoker Respirator Resolve 2018-11-20 Evi y d 11-12 10:35:00 Hai 10:00: [id number] 00 Respiratory lung sounds Respirator Resolve 2018-11-20 Evi deficit y d 11-20 10:35:00 Hai 10:35: [id number] 00 Safety risk for Safety Resolve 2018-11-27 Evi hospitaliza d 11-20 11:00:00 Hai tion 10:35: [id number] 00 Pain severe pain Pain Mgmt Resolve 2018-12-04 Evi d 11-27 11:35:00 Hai 11:00: [id number] 00 Respiratory oxygen Respirator Resolve 2018-12-12 Evi treatments y d 11-27 09:08:00 Hai in home 11:00: [id number] 00 Respiratory lung sounds Respirator Resolve 2018-12-04 Evi deficit y d 11-27 11:35:00 Hai 11:00: [id number] 00 Respiratory nebulizer Respirator Resolve 2018-12-12 Evi treatment y d 11-27 09:08:00 Hai in home 11:00: [id number] 00 Respiratory smoker Respirator Resolve 2018-12-04 Evi y d 12-04 11:35:00 Hai 11:35: [id number] 00 Safety risk for Safety Resolve 2018-12-12 Evi hospitaliza d 12-04 09:08:00 Hai tion 11:35: [id number] 00 Cardio hypertensio Cardiovasc Resolve 2018-12-18 Evi n ular d 12-12 14:00:00 Hai 09:08: [id number] 00 Respiratory lung sounds Respirator Resolve 2018-12-12 Evi deficit y d 12-12 09:08:00 Hai 09:08: [id number] 00 Respiratory smoker Respirator Resolve 2018-12-12 Evi y d 12-12 09:08:00 Hai 09:08: [id number] 00 Integument other wound Integument Resolve 2018-12-18 Evi present d 5-15 14:00:00 Hai 09:08: [id number] 00 Safety risk for Safety Resolve 2018-2019-01-01 Evi hospitaliza d 12-18 13:20:00 Hai tion 14:00: [id number] 00 Cardio hypertensio Cardiovasc Resolve 2018-2019-01-01 Evi n ular d 12-25 13:20:00 Hai 10:30: [id number] 00 Respiratory oxygen Respirator Resolve 2018-2019-01-08 Evi treatments y d 5- 11:00:00 Hai in home 10:30: [id number] 00 Respiratory lung sounds Respirator Resolve 2019-01-01 Evi deficit y d 12-25 13:20:00 Hai 10:30: [id number] 00 Respiratory nebulizer Respirator Resolve 2019-01-08 Evi treatment y d 12-25 11:00:00 Hai in home 10:30: [id number] 00 Cardio hypertensio Cardiovasc Resolve 2019-01-15 Evi n ular d 6- 12:05:00 Hai 11:00: [id number] 00 Respiratory smoker Respirator Resolve 2018-2019-01-08 Evi y d 6- 11:00:00 Hai 11:00: [id number] 00 Respiratory lung sounds Respirator Resolve 2018-2019-01-08 Evi deficit y d 6-11 11:00:00 Hai 11:00: [id number] 00 Safety risk for Safety Resolve 2019-01-15 Evi hospitaliza d 6- 12:05:00 Hai tion 11:00: [id number] 00 Respiratory lung sounds Respirator Unknown Evi deficit y 01-15 Hai 12:05: [id number] 00 Respiratory nebulizer Respirator Resolve 2019-01-22 Evi treatment y d 6-18 11:45:00 Hai in home 12:05: [id number] 00 Respiratory oxygen Respirator Resolve 2019-01-22 Evi treatments y d 01-22 11:45:00 Hai in home 11:45: [id number] 00 Respiratory smoker Respirator Resolve 2019-01-22 Evi y d 6 11:45:00 Hai 11:45: [id number] 00 Respiratory lung sounds Respirator Resolve 2018-2019-02-05 Evi deficit y d 01-29 11:30:00 Hai 11:40: [id number] 00 Respiratory smoker Respirator Resolve 2019-02-05 Evi y d 01-29 11:30:00 Hai 11:40: [id number] 00 Respiratory nebulizer Respirator Resolve 2019-02-05 Evi treatment y d 01-29 11:30:00 Hai in home 11:40: [id number] 00 Pain severe pain Pain Mgmt Resolve 2019-02-12 Evi d 02-08 13:30:00 Hai 16:30: [id number] 00 Respiratory oxygen Respirator Resolve 2019-02-19 Evi treatments y d 02-12 14:00:00 Hai in home 13:30: [id number] 00 Respiratory nebulizer Respirator Resolve 2019-02-19 Evi treatment y d 02-12 14:00:00 Hai in home 13:30: [id number] 00 Integument other wound Integument Resolve 2019-02-12 Evi present d 02-12 13:30:00 Hai 13:30: [id number] 00 Safety fall risk Safety Resolve 2019-02-12 Evi factor d 02-12 13:30:00 Hai present 13:30: [id number] 00 Safety risk for Safety Resolve 2019-07-02 Evi hospitaliza d 02-12 11:45:00 Hai tion 13:30: [id number] 00 Respiratory smoker Respirator Resolve 2019-02-19 Evi y d 02-19 14:00:00 Hai 14:00: [id number] Integument knowledge/s Integument Resolve 2019-02-27 Evi kill d 02-19 11:00:00 Hai deficit: pt 14:00: [id number] 00 Respiratory nebulizer Respirator Unknown Evi treatment y 02-27 Hai in home 11:00: [id number] 00 Respiratory smoker Respirator Resolve 2019-03-05 Evi y d 03-05 13:00:00 Hai 13:00: [id number] 00 Respiratory lung sounds Respirator Resolve 2019-04-09 Evi deficit y d 03-05 14:30:00 Hai 13:00: [id number] 00 Endo/Hugo glucose Endo/Hugo Resolve 2019-03-19 Evi tolerance d 03-05 13:30:00 Hai problem 13:00: [id number] 00 Endo/Hugo knowledge/s Endo/Hugo Resolve 2019-03-19 Evi kill d 03-05 13:30:00 Hai deficit 13:00: [id number] hypo/hyperg 00 lycemia: pt Integument other wound Integument Resolve 2019-03-05 Evi present d 03-05 13:00:00 Hai 13:00: [id number] 00 Respiratory oxygen Respirator Resolve 2019-03-26 Evi treatments y d 8-13 16:55:00 Hai in home 13:00: [id number] 00 Respiratory nebulizer Respirator Resolve 2019-03-26 Evi treatment y d 8 16:55:00 Hai in home 13:00: [id number] 00 Respiratory oxygen Respirator Resolve 2019-04-09 Evi treatments y d 04-02 14:30:00 Hai in home 12:15: [id number] 00 Respiratory nebulizer Respirator Resolve 2019-04-09 Evi treatment y d 04-02 14:30:00 Hai in home 12:15: [id number] 00 Endo/Hugo knowledge/s Endo/Hugo Resolve 2019-06-25 Evi kill d 04-02 12:00:00 Hai deficit: pt 12:15: [id number] 00 Endo/Hugo knowledge/s Endo/Hugo Resolve 2019-06-25 Evi kill d 04-02 12:00:00 Hai deficit 12:15: [id number] hypo/hyperg 00 lycemia: pt Respiratory smoker Respirator Resolve 2019-04-09 Evi y d 04-09 14:30:00 Hai 14:30: [id number] 00 Endo/Hugo glucose Endo/Hugo Resolve 2019-04-09 Evi tolerance d 9-10 14:30:00 Hai problem 14:30: [id number] 00 Respiratory oxygen Respirator Resolve 2019-04-23 Evi treatments y d 9-16 14:15:00 Hai in home 14:00: [id number] 00 Respiratory smoker Respirator Resolve 2019-04-23 Evi y d 9-16 14:15:00 Hai 14:00: [id number] 00 Respiratory nebulizer Respirator Resolve 2019-04-23 Evi treatment y d 9-16 14:15:00 Hai in home 14:00: [id number] 00 Endo/Hugo anti-coagul Endo/Hugo Resolve 2019-04-23 Evi ation d 9-16 14:15:00 Hai therapy 14:00: [id number] 00 Endo/Hugo glucose Endo/Hugo Resolve 2019-04-23 Evi tolerance d 9-24 14:15:00 Hai problem 14:15: [id number] 00 Respiratory lung sounds Respirator Resolve 2018-072019-05-07 Evi deficit y d 0-01 15:20:00 Hai 11:06: [id number] 00 Respiratory smoker Respirator Resolve 2018-072019-05-07 Evi y d 0-01 15:20:00 Hai 11:06: [id number] 00 Respiratory oxygen Respirator Resolve 2018-072019-05-15 Evi treatments y d 0-08 10:00:00 Hai in home 15:20: [id number] 00 Respiratory nebulizer Respirator Resolve 2018-072019-05-15 Evi treatment y d 0-08 10:00:00 Hai in home 15:20: [id number] 00 Respiratory lung sounds Respirator Resolve 2018-072019-05-15 Evi deficit y d 0-16 10:00:00 Hai 10:00: [id number] 00 Respiratory lung sounds Respirator Resolve 2018-072019-05-28 Evi deficit y d 0-23 13:15:00 Hai 09:30: [id number] 00 Respiratory oxygen Respirator Active 2018-07 Evi treatments y 0-29 Hai in home 13:15: [id number] 00 Respiratory nebulizer Respirator Active 2018-07 Evi treatment y 0-29 Hai in home 13:15: [id number] 00 Respiratory smoker Respirator Resolve 2018-072019-05-28 Evi y d 0-29 13:15:00 Hai 13:15: [id number] 00 Respiratory lung sounds Respirator Resolve 2018-072019-06-04 Evi deficit y d 1-05 12:00:00 Hai 12:00: [id number] 00 Respiratory lung sounds Respirator Resolve 2018-072019-06-25 Evi deficit y d 1-11 12:00:00 Hai 11:00: [id number] 00 Respiratory smoker Respirator Resolve 2018-072019-06-18 Evi y d 1-11 12:45:00 Hai 11:00: [id number] 00 Integument other wound Integument Resolve 2018-072019-06-18 Evi present d 1-11 12:45:00 Hai 11:00: [id number] 00 Safety fall risk Safety Resolve 2018-072019-06-25 Evi factor d 1-11 12:00:00 Hai present 11:00: [id number] 00 Respiratory smoker Respirator Resolve 2018-072019-06-25 Evi y d 1- 12:00:00 Hai 12:00: [id number] 00 Neuro anxiety Neuro/Emot Active 2018-07 Evi present ion 1-26 Hai 12:00: [id number] 00 Neuro memory Neuro/Emot Active 2018-07 Evi deficit ion 1-26 Hai needing 12:00: [id number] 00 Respiratory smoker Respirator Resolve 2018-072019-07-30 Evi y d 2-03 11:00:00 Hai 11:45: [id number] 00 Respiratory lung sounds Respirator Resolve 2018-072019-07-30 Evi deficit y d 2-11 11:00:00 Hai 13:05: [id number] 00 Safety risk for Safety Resolve 2018-072019-07-10 Evi hospitaliza d 2-11 13:05:00 Hai tion 13:05: [id number] 00 Safety risk for Safety Resolve 2018-072019-07-23 Evi hospitaliza d 2-17 11:00:00 Hai tion 15:00: [id number] 00 Safety risk for Safety Resolve 2018-072019-07-30 Evi sams d 11:00:00 Hai tion 11:00: [id number] 00 Safety risk for Safety Active Evi sams 08-06 Hai tion 12:30: [id number] 00 Medication potential Meds Active Evi clinically 08-06 Hai significant 12:30: [id number] medication 00 issue Allergies, Adverse Reactions, Alerts [...] liter Unknown permeable permeable 09-04 ,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
--- OUTSIDE RECORDS SUMMARY | 2019-09-17 05:43 | XMS REPORT ---
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, disease, unspecified unspecified Essential Essential Diagnosis Active Evi (primary) (primary) 2- Hai hypertensio hypertensio [id number] n n Other Other Diagnosis Active Evi chronic chronic 2-05 Hai pain pain [id number] 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, disorder, 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, recurrent, unspecified unspecified Gastro-esop Gastro-esop Diagnosis Active Evi hageal hageal 2- Hai reflux reflux [id number] disease disease without without esophagitis esophagitis 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 [id number] Low back Low back Diagnosis Active Evi pain pain Hai [id number] Hyperlipide Hyperlipide Diagnosis Active Evi hank, hank, Hai unspecified unspecified [id number] Hypothyroid Hypothyroid Diagnosis Active Evi ism, ism, Hai unspecified unspecified [id number] Respiratory treatments Respirator Resolve 2016-10-17 Chelsea ordered y d 2- 12:30:00 Son [id number] Pain frequent Pain Mgmt Resolve 2018-08-28 Chelsea pain d 2- 12:45:00 Son 13:13: [id number] 00 Pain knowledge/s Pain Mgmt Resolve 2015-09-09 Chelsea kill d 09-04 10:40:00 Son deficit: pt 13:13: [id number] 00 Pain severe pain Pain Mgmt Resolve 29 Chelsea d 2-05 12:45:00 Son 13:13: [id number] 00 Respiratory dyspnea Respirator Resolve 2016-10-17 Chelsea present y d 2- 12:30:00 Son 13:13: [id number] 00 Respiratory oxygen Respirator Resolve 2016-10-17 Chelsea treatments y d 2- 12:30:00 Son in home 13:13: [id number] 00 Respiratory knowledge/s Respirator Resolve 2015-09-16 Chelsea kill y d 2- 12:00:00 Son deficit: pt 13:13: [id number] 00 Respiratory lung sounds Respirator Resolve 2016-06-29 Chelsea deficit y d 2 13:03:00 Son 13:13: [id number] 00 Endo/Hugo knowledge/s Endo/Hugo Resolve 2015-09-16 Chelsea kill d 2- 12:00:00 Son deficit: pt 13:13: [id number] 00 Endo/Hugo diabetic Endo/Hugo Resolve 2016-06-29 Chelsea foot care d 2- 13:03:00 Son 13:13: [id number] 00 Nutrition knowledge/s Nutrition Resolve 2015-09-04 Chelsea kill d 2 13:13:00 Son deficit: pt 13:13: [id number] 00 Neuro anxiety Neuro/Emot Resolve 2016-08-02 Chelsea present ion d 2- 10:30:00 Son 13:13: [id number] 00 Neuro depressive Neuro/Emot Resolve 2016-08-02 Chelsea feelings ion d 2- 10:30:00 Son present 13:13: [id number] 00 Neuro knowledge/s Neuro/Emot Resolve 2015-09-16 Chelsea kill ion d 2- 12:00:00 Son deficit: pt 13:13: [id number] 00 Activity ADL Activity Resolve 2016-04-27 Chelsea assistance d 2- 11:15:00 Son required 13:13: [id number] 00 Activity knowledge/s Activity Resolve 2016-03-01 Chelsea kill d 2- 12:00:00 Son deficit: pt 13:13: [id number] 00 Safety fall risk Safety Resolve 2015-09-16 Chelsea factor d 2-05 12:00:00 Cline present 13:13: [id number] 00 Safety risk for Safety Resolve 2015-09-16 Chelsea hospitaliza d 2-05 12:00:00 Cline tion 13:13: [id number] 00 Medication oral med Meds Resolve 2016-08-02 Chelsea assistance d 2-05 10:30:00 Cline required 13:13: [id number] 00 Medication injectable Meds Resolve 2016-08-02 Chelsea med d 2-05 10:30:00 Cline assistance 13:13: [id number] 00 Medication knowledge/s Meds Resolve 2016-06-29 Chelsea kill d 2-05 13:03:00 Son deficit: pt 13:13: [id number] 00 Medication potential Meds Resolve 2016-08-02 Chelsea clinically d 2- 10:30:00 Son significant 13:13: [id number] medication 00 issue Diagnoses knowledge/s Diagnoses Active Chelsea kill - Cline deficit: pt 13:13: [id number] 00 Pain knowledge/s Pain Mgmt Resolve 2015-09-16 Cherrise kill d 2- 12:00:00 Abbe deficit: pt 12:00: [id number] 00 Safety sanitation Safety Resolve 2016-03-01 Cherrise hazards d 2-17 12:00:00 Abbe present 12:00: [id number] 00 Safety risk for Safety Resolve 2016-03-01 Cherrise hospitaliza d 2-18 12:00:00 Abbe tion 12:15: [id number] 00 Neuro knowledge/s Neuro/Emot Resolve 2016-08-16 Cherrise kill ion d 2- 12:45:00 Abbe deficit: pt 13:29: [id number] Safety structural Safety Resolve 2016-03-01 Cherrise barriers d 2- 12:00:00 Abbe present 13:29: [id number] 57 Respiratory knowledge/s Respirator Resolve 2016-04-27 Chelsea kill y d 10-27 11:15:00 Son deficit: cg 09:40: [id number] 00 Pain frequent Pain Mgmt Resolve 2018-08-28 Chelsea pain d 11-03 12:45:00 Son 13:04: [id number] 00 Pain knowledge/s Pain Mgmt Resolve 2016-02-24 Chelsea kill d 11-03 13:35:00 Son deficit: pt 13:04: [id number] 00 Respiratory knowledge/s Respirator Resolve 2016-04-27 Chelsea kill y d 11-03 11:15:00 Son deficit: pt 13:04: [id number] 00 Safety fall risk Safety Resolve 2016-03-01 Chelsea factor d 11-03 12:00:00 Son present 13:04: [id number] 00 Endo/Hugo insulin Endo/Hugo Resolve 2016-10-17 Chelsea admn d 11-24 12:30:00 Son dependence 10:48: [id number] 00 Safety safety Safety Resolve 2016-03-01 Chelsea hazards d 12-22 12:00:00 Cline present 09:15: [id number] 00 Elimination constipatio Eliminatio Resolve 2016-03-01 Chelsea n n d 12-29 12:00:00 Son 13:33: [id number] 00 IV IV present IV Resolve 2016-01-26 Chelsea d 12-29 11:50:00 Son 13:33: [id number] 00 Integument skin Integument Resolve 2016-04-27 Anna integrity d 01-25 11:15:00 Regeczi risk 11:50: [id number] 00 Nutrition knowledge/s Nutrition Resolve 2016-03-01 Cherrise kill d 02-26 12:00:00 [place] deficit: pt 10:00: [id number] 00 Pain frequent Pain Mgmt Resolve 2018-08-28 Chelsea pain d 03-01 12:45:00 Son 12:00: [id number] 00 Nutrition knowledge/s Nutrition Resolve 2016-04-06 Neida kill d 03-23 14:54:00 Malnoske deficit: pt 13:30: RN 00 Endo/Hugo insulin Endo/Hugo Resolve 2016-10-17 Chelsea admn d 04-06 12:30:00 Cline dependence 14:54: [id number] 00 Nutrition changing Nutrition Resolve 2016-05-10 Chelsea weight/appe d 04-27 11:45:00 Son tite 11:15: [id number] 00 Nutrition knowledge/s Nutrition Resolve 2016-04-27 Chelsea kill d 04-27 11:15:00 Son deficit: pt 11:15: [id number] 00 Cardio hypertensio Cardiovasc Resolve 2016-09-20 Evi n ular d 08-02 10:00:00 Hai 10:30: [id number] 00 Respiratory lung sounds Respirator Resolve 2016-08-25 Evi deficit y d 08-02 10:30:00 Hai 10:30: [id number] 00 Respiratory CPAP Respirator Resolve 2016-10-17 Evi treatments y d 08-02 12:30:00 Hai in home 10:30: [id number] 00 Respiratory dyspnea Respirator Resolve 2016-10-17 Evi present y d 08-02 12:30:00 Hai 10:30: [id number] 00 Respiratory oxygen Respirator Resolve 2016-10-17 Evi treatments y d 08-02 12:30:00 Hai in home 10:30: [id number] 00 Integument knowledge/s Integument Resolve 2016-08-16 Evi kill d 08-02 12:45:00 Hai deficit: pt 10:30: [id number] 00 Medication knowledge/s Meds Resolve 2016-08-25 Evi kill d 08-02 10:30:00 Hai deficit: pt 10:30: [id number] 00 Neuro anxiety Neuro/Emot Resolve 2016-10-17 Evi present ion d 08-16 12:30:00 Hai 12:45: [id number] 00 Integument knowledge/s Integument Resolve 2016-08-25 Evi kill d 08-25 10:30:00 Hai deficit: pt 10:30: [id number] 00 Nutrition nutritional Nutrition Resolve 2016-08-25 Evi restriction d 08-25 10:30:00 Hai s 10:30: [id number] 00 Neuro knowledge/s Neuro/Emot Resolve 2016-2016-08-25 Evi kill ion d 08-25 10:30:00 Hai deficit: pt 10:30: [id number] 00 Medication oral med Meds Resolve 2016-08-25 Evi assistance d 08-25 10:30:00 Hai required 10:30: [id number] 00 Respiratory oxygen Respirator Unknown Evi treatments y 2-06 Hai in home 14:30: [id number] 00 Integument knowledge/s Integument Resolve 2016-09-05 Evi kill d 09-05 14:30:00 Hai deficit: pt 14:30: [id number] 00 Medication oral med Meds Resolve 2016-10-17 Evi assistance d 09-05 12:30:00 Hai required 14:30: [id number] 00 Medication knowledge/s Meds Resolve 2016-12-05 Vei kill d 09-05 17:00:00 Hai deficit: pt 14:30: [id number] 00 Respiratory lung sounds Respirator Resolve 2016-09-20 Evi deficit y d 2- 10:00:00 Hai 10:00: [id number] 00 Integument knowledge/s Integument Resolve 2016-10-17 Evi kill d 2- 12:30:00 Hai deficit: pt 10:00: [id number] 00 Integument other wound Integument Resolve 2016-10-17 Evi present d 2- 12:30:00 Hai 10:00: [id number] 00 Respiratory lung sounds Respirator Resolve 2018-10-09 Evi deficit y d 3-06 12:40:00 Hai 15:00: [id number] 00 Respiratory CPAP Respirator Unknown Evi treatments y 3-06 Hai in home 15:00: [id number] 00 Respiratory smoker Respirator Resolve 2016-10-17 Evi y d 3-06 12:30:00 Hai 15:00: [id number] 00 Respiratory nebulizer Respirator Unknown Evi treatment y 3-06 Hai in home 15:00: [id number] 00 Respiratory dyspnea Respirator Resolve 2016-11-07 Evi present y d 10-25 12:20:00 Hai 14:15: [id number] 00 Respiratory oxygen Respirator Unknown Evi treatments y 10-25 Hai in home 14:15: [id number] 00 Respiratory smoker Respirator Resolve 2016-11-07 Evi y d 10-25 12:20:00 Hai 14:15: [id number] 00 Integument other wound Integument Resolve 2016-10-25 Evi present d 10-25 14:15:00 Hai 14:15: [id number] 00 Nutrition nutritional Nutrition Resolve 2016-11-07 Evi restriction d 10-25 12:20:00 Hai s 14:15: [id number] 00 Neuro anxiety Neuro/Emot Resolve 2016-11-07 Evi present ion d 10-25 12:20:00 Hai 14:15: [id number] 00 Medication oral med Meds Resolve 2016-12-05 Evi assistance d 10-25 17:00:00 Hai required 14:15: [id number] 00 Medication potential Meds Resolve 2016-12-05 Evi clinically d 11-07 17:00:00 Hai significant 12:20: [id number] medication 00 issue Respiratory dyspnea Respirator Resolve 2016-11-21 Evi present y d 11-14 13:30:00 Hai 14:00: [id number] 00 Respiratory oxygen Respirator Unknown Evi treatments y 11-21 Hai in home 13:30: [id number] 00 Respiratory lung sounds Respirator Resolve 2018-10-09 Evi deficit y d 11-21 12:40:00 Hai 13:30: [id number] 00 Respiratory smoker Respirator Resolve 2016-11-21 Evi y d 11-21 13:30:00 Hai 13:30: [id number] 00 Respiratory nebulizer Respirator Unknown Evi treatment y 11-21 Hai in home 13:30: [id number] 00 Neuro anxiety Neuro/Emot Resolve 2016-12-25 Evi present ion d 11-21 13:30:00 Hai 13:30: [id number] 00 Respiratory oxygen Respirator Resolve 2018-09-18 Evi treatments y d 12-05 13:30:00 Hai in home 17:00: [id number] 00 Respiratory smoker Respirator Resolve 2016-12-05 Evi y d 12-05 17:00:00 Hai 17:00: [id number] 00 Respiratory nebulizer Respirator Resolve 2018-09-18 Evi treatment y d 12-05 13:30:00 Hai in home 17:00: [id number] 00 Endo/Hugo knowledge/s Endo/Hugo Resolve 2016-12-19 Evi kill d 12-05 13:00:00 Hai deficit: pt 17:00: [id number] 00 Medication knowledge/s Meds Resolve 2016-12-25 Evi kill d 12-19 13:30:00 Hai deficit: pt 13:00: [id number] 00 Respiratory dyspnea Respirator Resolve 2017-02-27 Evi present y d 12-25 12:30:00 Hai 13:30: [id number] 00 Integument other wound Integument Resolve 2017-01-02 Evi present d 12-25 11:50:00 Hai 13:30: [id number] 00 Medication knowledge/s Meds Resolve 2016-12-25 Evi kill d 12-25 13:30:00 Hai deficit: pt 13:30: [id number] 00 Respiratory smoker Respirator Resolve 2017-01-16 Evi y d 01-16 15:00:00 Hai 15:00: [id number] 00 Respiratory lung sounds Respirator Resolve 2017-02-13 Evi deficit y d 02-13 12:45:00 Hai 12:45: [id number] 00 Respiratory smoker Respirator Resolve 2017-02-13 Evi y d 02-13 12:45:00 Hai 12:45: [id number] 00 Respiratory smoker Respirator Resolve 2017-02-27 Evi y d 02-24 12:30:00 Hai 13:00: [id number] 00 Integument other wound Integument Resolve 2017-02-24 Evi present d 02-24 13:00:00 Hai 13:00: [id number] 00 Nutrition nutritional Nutrition Resolve 2017-04-03 Tammee restriction d - 12:25:00 Eric garcia 13:00: an 00 Integument other wound Integument Resolve 2017-05-01 Evi present d 04-25 12:15:00 Hai 13:00: [id number] 00 Neuro depressive Neuro/Emot Resolve 2017-05-01 Evi feelings ion d 04-25 12:15:00 Hai present 13:00: [id number] 00 Neuro anxiety Neuro/Emot Resolve 2017-05-01 Evi present ion d 04-25 12:15:00 Hai 13:00: [id number] 00 Respiratory lung sounds Respirator Resolve 2016-072017-05-01 Evi deficit y d 0- 12:15:00 Hai 12:15: [id number] 00 Respiratory smoker Respirator Resolve 2016-072017-06-12 Evi y d 1- 11:14:00 Hai 11:14: [id number] 00 Respiratory smoker Respirator Resolve 2016-072017-06-21 Evi y d 08-21 11:15:00 Hai 11:15: [id number] 00 Integument other wound Integument Resolve 2016-072017-06-21 Evi present d 08-21 11:15:00 Hai 11:15: [id number] 00 Respiratory lung sounds Respirator Resolve 2016-072017-06-26 Evi deficit y d 08-26 12:15:00 Hai 12:15: [id number] 00 Respiratory lung sounds Respirator Unknown 2016-07 Evi deficit y 2-11 Hai 12:20: [id number] 00 Respiratory smoker Respirator Resolve 2016-072017-08-03 Evi y d 2-28 11:30:00 Hai 12:10: [id number] 00 Respiratory lung sounds Respirator Resolve 2017-08-03 Evi deficit y d 1- 11:30:00 Hai 11:30: [id number] 00 Respiratory lung sounds Respirator Resolve 2017-08-07 Evi deficit y d 1- 10:20:00 Hai 10:20: [id number] 00 Respiratory smoker Respirator Resolve 2017-08-07 Evi y d 1-08 10:20:00 Hai 10:20: [id number] 00 Respiratory lung sounds Respirator Resolve 2017-2017-08-14 Evi deficit y d 1-15 11:30:00 Hai 11:30: [id number] 00 Respiratory smoker Respirator Resolve 2017-2017-08-14 Evi y d 1-15 11:30:00 Hai 11:30: [id number] 00 Integument other wound Integument Resolve 2017-2017-08-21 Evi present d 1- 10:50:00 Hai 10:50: [id number] 00 Respiratory smoker Respirator Resolve 2017-2017-09-04 Evi y d 1- 12:40:00 Hai 12:30: [id number] 00 Respiratory lung sounds Respirator Resolve 2017-09-11 Evi deficit y d 2-12 13:00:00 Hai 13:00: [id number] 00 Respiratory lung sounds Respirator Resolve 2017-09-20 Evi deficit y d 2-21 11:15:00 Hai 11:15: [id number] 00 Respiratory lung sounds Respirator Resolve 2017-2017-09-27 Evi deficit y d 2-28 11:45:00 Hai 11:45: [id number] 00 Respiratory lung sounds Respirator Resolve 2017-10-18 Evi deficit y d 3-21 11:00:00 Hai 11:00: [id number] 00 Respiratory smoker Respirator Resolve 2017-10-18 Evi y d 3-21 11:00:00 Hai 11:00: [id number] 00 Integument other wound Integument Resolve 2017-10-25 Evi present d 3-21 11:00:00 Hai 11:00: [id number] 00 Respiratory lung sounds Respirator Resolve 2018-10-09 Evi deficit y d 4-10 12:40:00 Hai 14:45: [id number] 00 Respiratory smoker Respirator Resolve 2017-2017-11-15 Evi y d 4-18 11:00:00 Hai 11:00: [id number] 00 Respiratory lung sounds Respirator Resolve 2017-2018-10-09 Evi deficit y d 4-25 12:40:00 Hai 13:40: [id number] 00 Respiratory smoker Respirator Resolve 2017-11-22 Evi y d 11-22 13:40:00 Hai 13:40: [id number] 00 Respiratory smoker Respirator Resolve 2017-12-06 Evi y d 12-06 13:15:00 Hai 13:15: [id number] 00 Respiratory lung sounds Respirator Resolve 2017-12-13 Evi deficit y d 5 13:00:00 Hai 13:00: [id number] 00 Respiratory lung sounds Respirator Resolve 2017-12-26 Evi deficit y d 12-20 12:05:00 Hai 13:15: [id number] 00 Integument other wound Integument Resolve 2017-12-26 Evi present d 12-20 12:05:00 Hai 13:15: [id number] 00 Respiratory lung sounds Respirator Resolve 2018-01-03 Evi deficit y d 606 12:38:00 Hai 12:38: [id number] 00 Respiratory lung sounds Respirator Resolve 2018-10-09 Evi deficit y d 6-13 12:40:00 Hai 15:00: [id number] 00 Respiratory smoker Respirator Resolve 2018-01-10 Evi y d 6-13 15:00:00 Hai 15:00: [id number] 00 Respiratory lung sounds Respirator Resolve 2018-01-24 Evi deficit y d 6- 13:10:00 Hai 13:10: [id number] 00 Nutrition nutritional Nutrition Active Evi restriction 01-24 Hai s 13:10: [id number] 00 Safety sanitation Safety Resolve 2018-06-05 Evi hazards d 01-24 10:35:00 Hai present 13:10: [id number] 00 Safety fall risk Safety Resolve 2018-02-19 Evi factor d 01-24 14:02:00 Hai present 13:10: [id number] 00 Safety risk for Safety Resolve 2018-10-30 Evi hospitaliza d 01-24 13:06:00 Hai tion 13:10: [id number] 00 Safety structural Safety Resolve 2018-02-19 Evi barriers d 01-24 14:02:00 Hai present 13:10: [id number] 00 Safety safety Safety Resolve 2018-02-19 Evi hazards d 01-24 14:02:00 Hai present 13:10: [id number] 00 Medication oral med Meds Active Evi assistance 01-24 Hai required 13:10: [id number] 00 Medication injectable Meds Active Evi med 01-24 Hai assistance 13:10: [id number] 00 Respiratory lung sounds Respirator Resolve 2018-10-09 Evi deficit y d 01-29 12:40:00 Hai 13:45: [id number] 00 Respiratory smoker Respirator Resolve 2018-02-07 Evi y d 01-29 13:00:00 Hai 13:45: [id number] 00 Respiratory smoker Respirator Resolve 2018-03-01 Evi y d 02-19 11:42:00 Hai 14:02: [id number] 00 Integument other wound Integument Resolve 2018-03-21 Evi present d 02-19 15:30:00 Hai 14:02: [id number] 00 Respiratory smoker Respirator Resolve 2018-03-28 Evi y d 03-28 11:36:00 Hai 11:36: [id number] 00 Respiratory smoker Respirator Resolve 2018-04-03 Evi y d 04-03 14:00:00 Hai 14:00: [id number] 00 Respiratory smoker Respirator Resolve 2018-04-10 Evi y d 04-10 14:40:00 Hai 14:40: [id number] 00 Integument other wound Integument Resolve 2018-04-24 Evi present d 04-18 10:16:00 Hai 11:00: [id number] 00 Respiratory smoker Respirator Resolve 2017-072018-05-16 Evi y d 0 14:20:00 Hai 10:50: [id number] 00 Respiratory smoker Respirator Resolve 2017-072018-05-29 Evi y d 0 11:30:00 Hai 11:30: [id number] 00 Respiratory smoker Respirator Resolve 2017-072018-06-05 Evi y d 08-05 10:35:00 Hai 10:35: [id number] 00 Safety safety Safety Resolve 2017-072018-06-05 Evi hazards d 08-05 10:35:00 Hai present 10:35: [id number] 00 Integument other wound Integument Resolve 2017-072018-06-26 Evi present d 08-19 15:15:00 Hai 11:12: [id number] 00 Respiratory smoker Respirator Resolve 2017-072018-06-26 Evi y d 08-26 15:15:00 Hai 15:15: [id number] 00 Respiratory smoker Respirator Resolve 2017-072018-07-03 Evi y d 09-03 11:13:00 Hai 11:13: [id number] 00 Respiratory smoker Respirator Resolve 2017-072018-07-17 Evi y d 09-10 11:38:00 Hai 11:20: [id number] 00 Respiratory smoker Respirator Resolve 2017-072018-07-23 Evi y d 09-23 10:00:00 Hai 10:00: [id number] 00 Integument other wound Integument Resolve 2018-08-14 Evi present d 08-14 15:44:00 Hai 15:44: [id number] 00 Pain frequent Pain Mgmt Resolve 2018-08-28 Evi pain d 08-25 12:45:00 Hai 09:33: [id number] 56 Pain severe pain Pain Mgmt Resolve 2018-08-28 Evi d 08-25 12:45:00 Hai 09:33: [id number] 56 Integument other wound Integument Resolve 2018-08-28 Evi present d 08-25 12:45:00 Hai 09:33: [id number] 56 Respiratory smoker Respirator Resolve 2018-08-28 Evi y d 08-28 12:45:00 Hai 12:45: [id number] 00 Respiratory smoker Respirator Resolve 2018-09-04 Evi y d 09-04 11:30:00 Hai 11:30: [id number] 00 Respiratory smoker Respirator Resolve 2018-2018-09-18 Evi y d 09-10 13:30:00 Hai 16:40: [id number] 00 Pain severe pain Pain Mgmt Resolve 2018-09-25 Evi d 2- 10:30:00 Hai 13:30: [id number] 00 Neuro anxiety Neuro/Emot Unknown Evi present ion 09-18 Hai 13:30: [id number] 00 Respiratory oxygen Respirator Resolve 2018-2018-10-16 Evi treatments y d 3- 11:45:00 Hai in home 10:45: [id number] 00 Respiratory smoker Respirator Resolve 2018-10-09 Evi y d 3- 12:40:00 Hai 10:45: [id number] 00 Respiratory nebulizer Respirator Resolve 2018-10-16 Evi treatment y d 10-02 11:45:00 Hai in home 10:45: [id number] 00 Respiratory lung sounds Respirator Resolve 2018-10-16 Evi deficit y d 10-16 11:45:00 Hai 11:45: [id number] 00 Respiratory smoker Respirator Resolve 2018-10-16 Evi y d 10-16 11:45:00 Hai 11:45: [id number] 00 Integument other wound Integument Resolve 2018-10-23 Evi present d 10-16 11:20:00 Hai 11:45: [id number] 00 Respiratory nebulizer Respirator Resolve 2018-10-23 Evi treatment y d 10-23 11:20:00 Hai in home 11:20: [id number] 00 Safety safety Safety Resolve 2018-10-23 Evi hazards d 10-23 11:20:00 Hai present 11:20: [id number] 00 Respiratory lung sounds Respirator Unknown Evi deficit y 10-30 Hai 13:06: [id number] 00 Respiratory oxygen Respirator Resolve 2018-11-20 Evi treatments y d 11-06 10:35:00 Hai in home 11:31: [id number] 00 Respiratory smoker Respirator Resolve 2018-11-06 Evi y d 11-06 11:31:00 Hai 11:31: [id number] 00 Respiratory nebulizer Respirator Resolve 2018-11-20 Evi treatment y d 11-06 10:35:00 Hai in home 11:31: [id number] 00 Safety risk for Safety Resolve 2018-11-12 Evi hospitaliza d 11-06 10:00:00 Hai tion 11:31: [id number] 00 Respiratory smoker Respirator Resolve 2018-11-20 Evi y d 11-12 10:35:00 Hai 10:00: [id number] 00 Respiratory lung sounds Respirator Resolve 2018-11-20 Evi deficit y d 11-20 10:35:00 Hai 10:35: [id number] 00 Safety risk for Safety Resolve 2018-11-27 Evi hospitaliza d 11-20 11:00:00 Hai tion 10:35: [id number] 00 Pain severe pain Pain Mgmt Resolve 2018-12-04 Evi d 11-27 11:35:00 Hai 11:00: [id number] 00 Respiratory oxygen Respirator Resolve 2018-12-12 Evi treatments y d 11-27 09:08:00 Hai in home 11:00: [id number] 00 Respiratory lung sounds Respirator Resolve 2018-12-04 Eiv deficit y d 11-27 11:35:00 Hai 11:00: [id number] 00 Respiratory nebulizer Respirator Resolve 2018-12-12 Evi treatment y d 11-27 09:08:00 Hai in home 11:00: [id number] 00 Respiratory smoker Respirator Resolve 2018-12-04 Evi y d 12-04 11:35:00 Hai 11:35: [id number] 00 Safety risk for Safety Resolve 2018-12-12 Evi hospitaliza d 12-04 09:08:00 Hai tion 11:35: [id number] 00 Cardio hypertensio Cardiovasc Resolve 2018-12-18 Evi n ular d 12-12 14:00:00 Hai 09:08: [id number] 00 Respiratory lung sounds Respirator Resolve 2018-12-12 Evi deficit y d 12-12 09:08:00 Hai 09:08: [id number] 00 Respiratory smoker Respirator Resolve 2018-12-12 Evi y d 12-12 09:08:00 Hai 09:08: [id number] 00 Integument other wound Integument Resolve 2018-12-18 Evi present d 5-15 14:00:00 Hai 09:08: [id number] 00 Safety risk for Safety Resolve 2018-2019-01-01 Evi hospitaliza d 12-18 13:20:00 Hai tion 14:00: [id number] 00 Cardio hypertensio Cardiovasc Resolve 2018-2019-01-01 Evi n ular d 12-25 13:20:00 Hai 10:30: [id number] 00 Respiratory oxygen Respirator Resolve 2018-2019-01-08 Evi treatments y d 5- 11:00:00 Hai in home 10:30: [id number] 00 Respiratory lung sounds Respirator Resolve 2019-01-01 Evi deficit y d 12-25 13:20:00 Hai 10:30: [id number] 00 Respiratory nebulizer Respirator Resolve 2019-01-08 Evi treatment y d 12-25 11:00:00 Hai in home 10:30: [id number] 00 Cardio hypertensio Cardiovasc Resolve 2019-01-15 Evi n ular d 6- 12:05:00 Hai 11:00: [id number] 00 Respiratory smoker Respirator Resolve 2018-2019-01-08 Evi y d 6- 11:00:00 Hai 11:00: [id number] 00 Respiratory lung sounds Respirator Resolve 2018-2019-01-08 Evi deficit y d 6-11 11:00:00 Hai 11:00: [id number] 00 Safety risk for Safety Resolve 2019-01-15 Evi hospitaliza d 6- 12:05:00 Hai tion 11:00: [id number] 00 Respiratory lung sounds Respirator Unknown Evi deficit y 01-15 Hai 12:05: [id number] 00 Respiratory nebulizer Respirator Resolve 2019-01-22 Evi treatment y d 6-18 11:45:00 Hai in home 12:05: [id number] 00 Respiratory oxygen Respirator Resolve 2019-01-22 Evi treatments y d 01-22 11:45:00 Hai in home 11:45: [id number] 00 Respiratory smoker Respirator Resolve 2019-01-22 Evi y d 6 11:45:00 Hai 11:45: [id number] 00 Respiratory lung sounds Respirator Resolve 2018-2019-02-05 Evi deficit y d 01-29 11:30:00 Hai 11:40: [id number] 00 Respiratory smoker Respirator Resolve 2019-02-05 Evi y d 01-29 11:30:00 Hai 11:40: [id number] 00 Respiratory nebulizer Respirator Resolve 2019-02-05 Evi treatment y d 01-29 11:30:00 Hai in home 11:40: [id number] 00 Pain severe pain Pain Mgmt Resolve 2019-02-12 Evi d 02-08 13:30:00 Hai 16:30: [id number] 00 Respiratory oxygen Respirator Resolve 2019-02-19 Evi treatments y d 02-12 14:00:00 Hai in home 13:30: [id number] 00 Respiratory nebulizer Respirator Resolve 2019-02-19 Evi treatment y d 02-12 14:00:00 Hai in home 13:30: [id number] 00 Integument other wound Integument Resolve 2019-02-12 Evi present d 02-12 13:30:00 Hai 13:30: [id number] 00 Safety fall risk Safety Resolve 2019-02-12 Evi factor d 02-12 13:30:00 Hai present 13:30: [id number] 00 Safety risk for Safety Resolve 2019-07-02 Evi hospitaliza d 02-12 11:45:00 Hai tion 13:30: [id number] 00 Respiratory smoker Respirator Resolve 2019-02-19 Evi y d 02-19 14:00:00 Hai 14:00: [id number] 00 Integument knowledge/s Integument Resolve 2019-02-27 Evi kill d 02-19 11:00:00 Hai deficit: pt 14:00: [id number] 00 Respiratory nebulizer Respirator Unknown Evi treatment y 02-27 Hai in home 11:00: [id number] 00 Respiratory smoker Respirator Resolve 2019-03-05 Evi y d 03-05 13:00:00 Hai 13:00: [id number] 00 Respiratory lung sounds Respirator Resolve 2019-04-09 Evi deficit y d 03-05 14:30:00 Hai 13:00: [id number] 00 Endo/Hugo glucose Endo/Hugo Resolve 2019-03-19 Evi tolerance d 03-05 13:30:00 Hai problem 13:00: [id number] 00 Endo/Hugo knowledge/s Endo/Hugo Resolve 2019-03-19 Evi kill d 03-05 13:30:00 Hai deficit 13:00: [id number] hypo/hyperg 00 lycemia: pt Integument other wound Integument Resolve 2019-03-05 Evi present d 03-05 13:00:00 Hai 13:00: [id number] 00 Respiratory oxygen Respirator Resolve 2019-03-26 Evi treatments y d 8-13 16:55:00 Hai in home 13:00: [id number] 00 Respiratory nebulizer Respirator Resolve 2019-03-26 Evi treatment y d 8 16:55:00 Hai in home 13:00: [id number] 00 Respiratory oxygen Respirator Resolve 2019-04-09 Evi treatments y d 04-02 14:30:00 Hai in home 12:15: [id number] 00 Respiratory nebulizer Respirator Resolve 2019-04-09 Evi treatment y d 04-02 14:30:00 Hai in home 12:15: [id number] 00 Endo/Hugo knowledge/s Endo/Hugo Resolve 2019-06-25 Evi kill d 04-02 12:00:00 Hai deficit: pt 12:15: [id number] 00 Endo/Hugo knowledge/s Endo/Hugo Resolve 2019-06-25 Evi kill d 04-02 12:00:00 Hai deficit 12:15: [id number] hypo/hyperg 00 lycemia: pt Respiratory smoker Respirator Resolve 2019-04-09 Evi y d 04-09 14:30:00 Hai 14:30: [id number] 00 Endo/Hugo glucose Endo/Hugo Resolve 2019-04-09 Evi tolerance d 9-10 14:30:00 Hai problem 14:30: [id number] 00 Respiratory oxygen Respirator Resolve 2019-04-23 Evi treatments y d 9-16 14:15:00 Hai in home 14:00: [id number] 00 Respiratory smoker Respirator Resolve 2019-04-23 Evi y d 9-16 14:15:00 Hai 14:00: [id number] 00 Respiratory nebulizer Respirator Resolve 2019-04-23 Evi treatment y d 9-16 14:15:00 Hai in home 14:00: [id number] 00 Endo/Hugo anti-coagul Endo/Hugo Resolve 2019-04-23 Evi ation d 9-16 14:15:00 Hai therapy 14:00: [id number] 00 Endo/Hugo glucose Endo/Hugo Resolve 2019-04-23 Evi tolerance d 9-24 14:15:00 Hai problem 14:15: [id number] 00 Respiratory lung sounds Respirator Resolve 2018-072019-05-07 Evi deficit y d 0-01 15:20:00 Hai 11:06: [id number] 00 Respiratory smoker Respirator Resolve 2018-072019-05-07 Evi y d 0-01 15:20:00 Hai 11:06: [id number] 00 Respiratory oxygen Respirator Resolve 2018-072019-05-15 Evi treatments y d 0-08 10:00:00 Hai in home 15:20: [id number] 00 Respiratory nebulizer Respirator Resolve 2018-072019-05-15 Evi treatment y d 0-08 10:00:00 Hai in home 15:20: [id number] 00 Respiratory lung sounds Respirator Resolve 2018-072019-05-15 Evi deficit y d 0-16 10:00:00 Hai 10:00: [id number] 00 Respiratory lung sounds Respirator Resolve 2018-072019-05-28 Evi deficit y d 0-23 13:15:00 Hai 09:30: [id number] 00 Respiratory oxygen Respirator Active 2018-07 Evi treatments y 0-29 Hai in home 13:15: [id number] 00 Respiratory nebulizer Respirator Active 2018-07 Evi treatment y 0-29 Hai in home 13:15: [id number] 00 Respiratory smoker Respirator Resolve 2018-072019-05-28 Evi y d 0-29 13:15:00 Hai 13:15: [id number] 00 Respiratory lung sounds Respirator Resolve 2018-072019-06-04 Evi deficit y d 1-05 12:00:00 Hai 12:00: [id number] 00 Respiratory lung sounds Respirator Resolve 2018-072019-06-25 Evi deficit y d 1-11 12:00:00 Hai 11:00: [id number] 00 Respiratory smoker Respirator Resolve 2018-072019-06-18 Evi y d 1-11 12:45:00 Hai 11:00: [id number] 00 Integument other wound Integument Resolve 2018-072019-06-18 Evi present d 1-11 12:45:00 Hai 11:00: [id number] 00 Safety fall risk Safety Resolve 2018-072019-06-25 Evi factor d 1-11 12:00:00 Hai present 11:00: [id number] 00 Respiratory smoker Respirator Resolve 2018-072019-06-25 Evi y d 1- 12:00:00 Hai 12:00: [id number] 00 Neuro anxiety Neuro/Emot Active 2018-07 Evi present ion 1-26 Hai 12:00: [id number] 00 Neuro memory Neuro/Emot Active 2018-07 Evi deficit ion 1-26 Hai needing 12:00: [id number] 00 Respiratory smoker Respirator Resolve 2018-072019-07-30 Evi y d 2-03 11:00:00 Hai 11:45: [id number] 00 Respiratory lung sounds Respirator Resolve 2018-072019-07-30 Evi deficit y d 2-11 11:00:00 Hai 13:05: [id number] 00 Safety risk for Safety Resolve 2018-072019-07-10 Evi hospitaliza d 2-11 13:05:00 Hai tion 13:05: [id number] 00 Safety risk for Safety Resolve 2018-072019-07-23 Evi hospitaliza d 2-17 11:00:00 Hai tion 15:00: [id number] 00 Safety risk for Safety Resolve 2018-072019-07-30 Evi herrera 11:00:00 Hai tion 11:00: [id number] 00 Allergies, Adverse Reactions, Alerts Allergy Allergy [...] Unknown 40 mg 40 mg 09-04 ,Leroy capsule,del capsule,del ayed ayed release release hydroCHLORO hydroCHLORO No Darlow 12.5 mg Unknown thiazide thiazide 09-04 ,Leroy 12.5 mg 12.5 mg tablet tablet cetirizine cetirizine No Darlow 10 mg Unknown 10 mg 10 mg 09-04 Leroy DUMONT tablet tablet albuterol albuterol No Darlow 1 amp Unknown sulfate 2.5 sulfate 2.5 09-04 Lesli DUMONTyd mg/3 mL mg/3 mL (0.083 %) (0.083 %) solution solution for for nebulizatio nebulizatio n n Singulair Singulair No Darlow 10 mg Unknown 10 mg 10 mg 09-04 Leroy DUMONT tablet tablet metoclopram metoclopram No [...] mg tablet mg tablet 09-04 Leroy DUMONT traMADol ER traMADol ER No Darlow 200 [...] 2 puffs Unknown 160 mcg-4.5 160 mcg-4.5 2-05 MD,Leroy mcg/actuati mcg/actuati on HFA on HFA aerosol aerosol inhaler inhaler FLUoxetine FLUoxetine 2015- No Darlow 40 mg Unknown 40 mg 40 mg 09-04 ,Leroy capsule capsule oxygen oxygen No Darlow 2 liter Unknown permeable permeable 09-04 ,Lreoy lens paper cleaner reed cleaner liquid liquid FLUoxetine FLUoxetine No Darlow 3 caps Unknown 20 mg 20 mg 11-19 MD,Leroy (60 mg) capsule capsule Invokana Invokana 2018- No Darlow 100 mg Unknown 100 mg 100 mg 11-19 ,Leroy tablet tablet Benadryl 25 Benadryl 25 No Darlow 1-2 Unknown mg capsule mg capsule 01-26 ,Leroy tabs Oxygen Oxygen No Darlow 2 lpm Unknown 01-25 MD,Leroy traMADol ER traMADol ER 2016- No [place] one Unknown 300 mg 300 mg 03-10 Hugo DUMONT daily capsule 24 capsule 24 hr,extended hr,extended release release metoclopram metoclopram 2017- No Darlow 1 tab Unknown sincere 5 mg sincere 5 mg 09-04 ,Leroy tablet tablet diazePAM 5 diazePAM 5 No Darlow 1 tab Unknown mg tablet mg tablet 04-15 MD,Leroy amoxicillin amoxicillin 2015-07- No Darlow 1 Unknown [...] Unknown ol 750 mg ol 750 mg - ,Leroy tablet tablet Lyrica 150 Lyrica 150 2018- No [place] 150mg Unknown mg capsule mg capsule 10-21 Hugo DUMONT cap Lantus Lantus 2018- No Darlow - Unknown U-100 U-100 04-04 Leroy DUMONT units [...] No Darlow Unknown Unknown ne ne 01-08 07-02 ,Leroy acetonide acetonide 0.025 % 0.025 % topical topical cream cream Lyrica 75 Lyrica 75 2018- No [place] Unknown Unknown mg capsule mg capsule 6-25 07-10 Hugo DUMONT Lyrica 100 Lyrica 100 2018- No [place] Unknown Unknown mg capsule mg capsule 02-06 Hugo DUMONT Fluocinonid Fluocinonid No Yentzer Unknown Unknown e-E 0.05 % e-E 0.05 % 01-29 MDShravan A topical topical cream cream ketoconazol ketoconazol No Yentzer Unknown Unknown e 2 % e 2 % 01-29 MDShravan A shampoo shampoo Lantus Lantus 2018- No [...] Darlow Unknown Unknown 81 mg 81 mg 03-05 ,Leroy tablet,anna tablet,anna yed release yed release Lyrica 150 Lyrica 150 No [place] Unknown Unknown mg capsule mg capsule 04-15 Hugo DUMONT Spiriva Spiriva 2018-07 Yes Samantha Unknown Unknown Respimat Respimat 1-11 MDCitlali 2.5 2.5 mcg/actuati mcg/actuati on solution on solution for for inhalation inhalation fentaNYL 12 fentaNYL 12 2018-07 Yes [place] Unknown Unknown mcg/hr mcg/hr 2-13 Hugo DUMONT transdermal transdermal patch patch Vital Signs Vital Name Observation Time Observation Value Comments SYSTOLIC mm[Hg] 2019-07-30 18:09:38 158 mm[Hg] mm[Hg] Method: Sit SYSTOLIC mm[Hg] 2019-06-12 18:08:50 142 mm[Hg] mm[Hg] Method: Stand DIASTOLIC mm[Hg] 2019-07-30 18:09:38 80 mm[Hg] mm[Hg] Method: Sit DIASTOLIC mm[Hg] 2019-06-12 18:08:50 70 mm[Hg] mm[Hg] Method: Stand PULSE 2019-07-30 18:09:38 98 /min /min RESP RATE 2019-07-30 18:09:38 14 /min /min TEMP 2019-07-30 18:09:38 97.6 [degF] Procedures This patient has no known procedures. Results This patient has no known results.
--- OUTSIDE RECORDS SUMMARY | 2019-09-17 05:43 | XMS REPORT ---
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, disease, unspecified unspecified Essential Essential Diagnosis Active Evi (primary) (primary) 2- Hai hypertensio hypertensio [id number] n n Other Other Diagnosis Active Evi chronic chronic 2- Hai pain pain [id number] 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, disorder, 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, recurrent, unspecified unspecified Gastro-esop Gastro-esop Diagnosis Active Evi hageal hageal 2- Hai reflux reflux [id number] disease disease without without esophagitis esophagitis 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 [id number] Low back Low back Diagnosis Active Evi pain pain Hai [id number] Hyperlipide Hyperlipide Diagnosis Active Evi hank, hank, Hai unspecified unspecified [id number] Hypothyroid Hypothyroid Diagnosis Active Evi ism, ism, Hai unspecified unspecified [id number] Respiratory treatments Respirator Resolve 2016-10-17 [place] ordered y d 2- 12:30:00 Son [id number] Pain frequent Pain Mgmt Resolve 2018-08-28 [place] pain d 2- 12:45:00 Son 13:13: [id number] 00 Pain knowledge/s Pain Mgmt Resolve 2015-09-09 [place] kill d 09-04 10:40:00 Son deficit: pt 13:13: [id number] 00 Pain severe pain Pain Mgmt Resolve 29 Chelsea d 2-05 12:45:00 Son 13:13: [id number] 00 Respiratory dyspnea Respirator Resolve 2016-10-17 [place] present y d 2- 12:30:00 Son 13:13: [id number] 00 Respiratory oxygen Respirator Resolve 2016-10-17 Chelsea treatments y d 2- 12:30:00 Sno in home 13:13: [id number] 00 Respiratory knowledge/s Respirator Resolve 2015-09-16 [place] kill y d 2- 12:00:00 Son deficit: pt 13:13: [id number] 00 Respiratory lung sounds Respirator Resolve 2016-06-29 [place] deficit y d 2 13:03:00 Son 13:13: [id number] 00 Endo/Hugo knowledge/s Endo/Hugo Resolve 2015-09-16 [place] kill d 2- 12:00:00 Son deficit: pt 13:13: [id number] 00 Endo/Hugo diabetic Endo/Hugo Resolve 2016-06-29 Chelsea foot care d 2- 13:03:00 Son 13:13: [id number] 00 Nutrition knowledge/s Nutrition Resolve 2015-09-04 [place] kill d 2 13:13:00 Son deficit: pt 13:13: [id number] 00 Neuro anxiety Neuro/Emot Resolve 2016-08-02 Chelsea present ion d 2- 10:30:00 Son 13:13: [id number] 00 Neuro depressive Neuro/Emot Resolve 2016-08-02 Chelsea feelings ion d 2- 10:30:00 Son present 13:13: [id number] 00 Neuro knowledge/s Neuro/Emot Resolve 2015-09-16 [place] kill ion d 2- 12:00:00 Son deficit: pt 13:13: [id number] 00 Activity ADL Activity Resolve 2016-04-27 [place] assistance d 2- 11:15:00 Son required 13:13: [id number] 00 Activity knowledge/s Activity Resolve 2016-03-01 [place] kill d 2- 12:00:00 Son deficit: pt 13:13: [id number] 00 Safety fall risk Safety Resolve 2015-09-16 Chelsea factor d 2-05 12:00:00 Cline present 13:13: [id number] 00 Safety risk for Safety Resolve 2015-09-16 [place] hospitaliza d 2-05 12:00:00 Cline tion 13:13: [id number] 00 Medication oral med Meds Resolve 2016-08-02 [place] assistance d 2-05 10:30:00 Cline required 13:13: [id number] 00 Medication injectable Meds Resolve 2016-08-02 [place] med d 2-05 10:30:00 Cline assistance 13:13: [id number] required 00 Medication knowledge/s Meds Resolve 2016-06-29 [place] kill d 2-05 13:03:00 Son deficit: pt 13:13: [id number] 00 Medication potential Meds Resolve 2016-08-02 Chelsea clinically d 2- 10:30:00 Son significant 13:13: [id number] medication 00 issue Diagnoses knowledge/s Diagnoses Active Chelsea kill - Cline deficit: pt 13:13: [id number] 00 Pain knowledge/s Pain Mgmt Resolve 2015-09-16 Cherrise kill d 2- 12:00:00 Abbe deficit: pt 12:00: [id number] 00 Safety sanitation Safety Resolve 2016-03-01 Cherrise hazards d 2-17 12:00:00 Abbe present 12:00: [id number] 00 Safety risk for Safety Resolve 2016-03-01 Cherrise hospitaliza d 2-18 12:00:00 [place] tion 12:15: [id number] 00 Neuro knowledge/s Neuro/Emot Resolve 2016-08-16 Cherrise kill ion d 2- 12:45:00 [place] deficit: pt 13:29: [id number] Safety structural Safety Resolve 2016-03-01 Cherrise barriers d 2- 12:00:00 Abbe present 13:29: [id number] 57 Respiratory knowledge/s Respirator Resolve 2016-04-27 [place] kill y d 10-27 11:15:00 Son deficit: cg 09:40: [id number] 00 Pain frequent Pain Mgmt Resolve 2018-08-28 Chelsea pain d 11-03 12:45:00 Son 13:04: [id number] 00 Pain knowledge/s Pain Mgmt Resolve 2016-02-24 [place] kill d 11-03 13:35:00 Son deficit: pt 13:04: [id number] 00 Respiratory knowledge/s Respirator Resolve 2016-04-27 [place] kill y d 11-03 11:15:00 Son deficit: pt 13:04: [id number] 00 Safety fall risk Safety Resolve 2016-03-01 [place] factor d 11-03 12:00:00 Son present 13:04: [id number] 00 Endo/Hugo insulin Endo/Hugo Resolve 2016-10-17 Chelsea admn d 11-24 12:30:00 Son dependence 10:48: [id number] 00 Safety safety Safety Resolve 2016-03-01 [place] hazards d 12-22 12:00:00 Cline present 09:15: [id number] 00 Elimination constipatio Eliminatio Resolve 2016-03-01 Chelsea n n d 12-29 12:00:00 Son 13:33: [id number] 00 IV IV present IV Resolve 2016-01-26 Chelsea d 12-29 11:50:00 Son 13:33: [id number] 00 Integument skin Integument Resolve 2016-04-27 Anna integrity d 01-25 11:15:00 Rege[place] risk 11:50: [id number] 00 Nutrition knowledge/s Nutrition Resolve 2016-03-01 Cherrise kill d 02-26 12:00:00 [place] deficit: pt 10:00: [id number] 00 Pain frequent Pain Mgmt Resolve 2018-08-28 [place] pain d 03-01 12:45:00 Son 12:00: [id number] 00 Nutrition knowledge/s Nutrition Resolve 2016-04-06 Neida kill d 03-23 14:54:00 [place] deficit: pt 13:30: RN 00 Endo/Hugo insulin Endo/Hugo Resolve 2016-10-17 [place] admn d 04-06 12:30:00 Cline dependence 14:54: [id number] 00 Nutrition changing Nutrition Resolve 2016-05-10 Chelsea weight/appe d 04-27 11:45:00 Son tite 11:15: [id number] 00 Nutrition knowledge/s Nutrition Resolve 2016-04-27 [place] kill d 04-27 11:15:00 Son deficit: pt 11:15: [id number] 00 Cardio hypertensio Cardiovasc Resolve 2016-09-20 Evi n ular d 08-02 10:00:00 Hai 10:30: [id number] 00 Respiratory lung sounds Respirator Resolve 2016-08-25 Evi deficit y d 08-02 10:30:00 Hai 10:30: [id number] 00 Respiratory CPAP Respirator Resolve 2016-10-17 Evi treatments y d 08-02 12:30:00 Hai in home 10:30: [id number] 00 Respiratory dyspnea Respirator Resolve 2016-10-17 Evi present y d 08-02 12:30:00 Hai 10:30: [id number] 00 Respiratory oxygen Respirator Resolve 2016-10-17 Evi treatments y d 08-02 12:30:00 Hai in home 10:30: [id number] 00 Integument knowledge/s Integument Resolve 2016-08-16 Evi kill d 08-02 12:45:00 Hai deficit: pt 10:30: [id number] 00 Medication knowledge/s Meds Resolve 2016-08-25 Evi kill d 08-02 10:30:00 Hai deficit: pt 10:30: [id number] 00 Neuro anxiety Neuro/Emot Resolve 2016-10-17 Evi present ion d 08-16 12:30:00 Hai 12:45: [id number] 00 Integument knowledge/s Integument Resolve 2016-08-25 Evi kill d 08-25 10:30:00 Hai deficit: pt 10:30: [id number] 00 Nutrition nutritional Nutrition Resolve 2016-08-25 Evi restriction d 08-25 10:30:00 Hai s 10:30: [id number] 00 Neuro knowledge/s Neuro/Emot Resolve 2016-2016-08-25 Evi kill ion d 08-25 10:30:00 Hai deficit: pt 10:30: [id number] 00 Medication oral med Meds Resolve 2016-08-25 Evi assistance d 08-25 10:30:00 Hai required 10:30: [id number] 00 Respiratory oxygen Respirator Unknown Evi treatments y 2-06 Hai in home 14:30: [id number] 00 Integument knowledge/s Integument Resolve 2016-09-05 Evi kill d 09-05 14:30:00 Hai deficit: pt 14:30: [id number] 00 Medication oral med Meds Resolve 2016-10-17 Evi assistance d 09-05 12:30:00 Hai required 14:30: [id number] 00 Medication knowledge/s Meds Resolve 2016-12-05 Evi kill d 09-05 17:00:00 Hai deficit: pt 14:30: [id number] 00 Respiratory lung sounds Respirator Resolve 2016-09-20 Evi deficit y d 2- 10:00:00 Hai 10:00: [id number] 00 Integument knowledge/s Integument Resolve 2016-10-17 Evi kill d 2- 12:30:00 Hai deficit: pt 10:00: [id number] 00 Integument other wound Integument Resolve 2016-10-17 Evi present d 2- 12:30:00 Hai 10:00: [id number] 00 Respiratory lung sounds Respirator Resolve 2018-10-09 Evi deficit y d 3-06 12:40:00 Hai 15:00: [id number] 00 Respiratory CPAP Respirator Unknown Evi treatments y 3-06 Hai in home 15:00: [id number] 00 Respiratory smoker Respirator Resolve 2016-10-17 Evi y d 3-06 12:30:00 Hai 15:00: [id number] 00 Respiratory nebulizer Respirator Unknown Evi treatment y 3-06 Hai in home 15:00: [id number] 00 Respiratory dyspnea Respirator Resolve 2016-11-07 Evi present y d 10-25 12:20:00 Hai 14:15: [id number] 00 Respiratory oxygen Respirator Unknown Evi treatments y 10-25 Hai in home 14:15: [id number] 00 Respiratory smoker Respirator Resolve 2016-11-07 Evi y d 10-25 12:20:00 Hai 14:15: [id number] 00 Integument other wound Integument Resolve 2016-10-25 Evi present d 10-25 14:15:00 Hai 14:15: [id number] 00 Nutrition nutritional Nutrition Resolve 2016-11-07 Evi restriction d 10-25 12:20:00 Hai s 14:15: [id number] 00 Neuro anxiety Neuro/Emot Resolve 2016-11-07 Evi present ion d 10-25 12:20:00 Hai 14:15: [id number] 00 Medication oral med Meds Resolve 2016-12-05 Evi assistance d 10-25 17:00:00 Hai required 14:15: [id number] 00 Medication potential Meds Resolve 2016-12-05 Evi clinically d 11-07 17:00:00 Ahi significant 12:20: [id number] medication 00 issue Respiratory dyspnea Respirator Resolve 2016-11-21 Evi present y d 11-14 13:30:00 Hai 14:00: [id number] 00 Respiratory oxygen Respirator Unknown Evi treatments y 11-21 Hai in home 13:30: [id number] 00 Respiratory lung sounds Respirator Resolve 2018-10-09 Evi deficit y d 11-21 12:40:00 Hai 13:30: [id number] 00 Respiratory smoker Respirator Resolve 2016-11-21 Evi y d 11-21 13:30:00 Hai 13:30: [id number] 00 Respiratory nebulizer Respirator Unknown Evi treatment y 11-21 Hai in home 13:30: [id number] 00 Neuro anxiety Neuro/Emot Resolve 2016-12-25 Evi present ion d 11-21 13:30:00 Hai 13:30: [id number] 00 Respiratory oxygen Respirator Resolve 2018-09-18 Evi treatments y d 12-05 13:30:00 Hai in home 17:00: [id number] 00 Respiratory smoker Respirator Resolve 2016-12-05 Evi y d 12-05 17:00:00 Hai 17:00: [id number] 00 Respiratory nebulizer Respirator Resolve 2018-09-18 Evi treatment y d 12-05 13:30:00 Hai in home 17:00: [id number] 00 Endo/Hugo knowledge/s Endo/Hugo Resolve 2016-12-19 Evi kill d 12-05 13:00:00 Hai deficit: pt 17:00: [id number] 00 Medication knowledge/s Meds Resolve 2016-12-25 Evi kill d 12-19 13:30:00 Hai deficit: pt 13:00: [id number] 00 Respiratory dyspnea Respirator Resolve 2017-02-27 Evi present y d 12-25 12:30:00 Hai 13:30: [id number] 00 Integument other wound Integument Resolve 2017-01-02 Evi present d 12-25 11:50:00 Hai 13:30: [id number] 00 Medication knowledge/s Meds Resolve 2016-12-25 Evi kill d 12-25 13:30:00 Hai deficit: pt 13:30: [id number] 00 Respiratory smoker Respirator Resolve 2017-01-16 Evi y d 01-16 15:00:00 Hai 15:00: [id number] 00 Respiratory lung sounds Respirator Resolve 2017-02-13 Evi deficit y d 02-13 12:45:00 Hai 12:45: [id number] 00 Respiratory smoker Respirator Resolve 2017-02-13 Evi y d 02-13 12:45:00 Hai 12:45: [id number] 00 Respiratory smoker Respirator Resolve 2017-02-27 Evi y d 02-24 12:30:00 Hai 13:00: [id number] 00 Integument other wound Integument Resolve 2017-02-24 Evi present d 02-24 13:00:00 Hai 13:00: [id number] 00 Nutrition nutritional Nutrition Resolve 2017-04-03 [place] restriction d - 12:25:00 Eric garcia 13:00: an 00 Integument other wound Integument Resolve 2017-05-01 Evi present d 04-25 12:15:00 Hai 13:00: [id number] 00 Neuro depressive Neuro/Emot Resolve 2017-05-01 Evi feelings ion d 04-25 12:15:00 Hai present 13:00: [id number] 00 Neuro anxiety Neuro/Emot Resolve 2017-05-01 Evi present ion d 04-25 12:15:00 Hai 13:00: [id number] 00 Respiratory lung sounds Respirator Resolve 2016-072017-05-01 Evi deficit y d 0- 12:15:00 Hai 12:15: [id number] 00 Respiratory smoker Respirator Resolve 2016-072017-06-12 Evi y d 1- 11:14:00 Hai 11:14: [id number] 00 Respiratory smoker Respirator Resolve 2016-072017-06-21 Evi y d 08-21 11:15:00 Hai 11:15: [id number] 00 Integument other wound Integument Resolve 2016-072017-06-21 Evi present d 08-21 11:15:00 Hai 11:15: [id number] 00 Respiratory lung sounds Respirator Resolve 2016-072017-06-26 Evi deficit y d 08-26 12:15:00 Hai 12:15: [id number] 00 Respiratory lung sounds Respirator Unknown 2016-07 Evi deficit y 2-11 Hai 12:20: [id number] 00 Respiratory smoker Respirator Resolve 2016-072017-08-03 Evi y d 2-28 11:30:00 Hai 12:10: [id number] 00 Respiratory lung sounds Respirator Resolve 2017-08-03 Evi deficit y d 1- 11:30:00 Hai 11:30: [id number] 00 Respiratory lung sounds Respirator Resolve 2017-08-07 Evi deficit y d 1- 10:20:00 Hai 10:20: [id number] 00 Respiratory smoker Respirator Resolve 2017-08-07 Evi y d 1-08 10:20:00 Hai 10:20: [id number] 00 Respiratory lung sounds Respirator Resolve 2017-2017-08-14 Evi deficit y d 1-15 11:30:00 Hai 11:30: [id number] 00 Respiratory smoker Respirator Resolve 2017-2017-08-14 Evi y d 1-15 11:30:00 Hai 11:30: [id number] 00 Integument other wound Integument Resolve 2017-2017-08-21 Evi present d 1- 10:50:00 Hai 10:50: [id number] 00 Respiratory smoker Respirator Resolve 2017-2017-09-04 Evi y d 1- 12:40:00 Hai 12:30: [id number] 00 Respiratory lung sounds Respirator Resolve 2017-09-11 Evi deficit y d 2-12 13:00:00 Hai 13:00: [id number] 00 Respiratory lung sounds Respirator Resolve 2017-09-20 Evi deficit y d 2-21 11:15:00 Hai 11:15: [id number] 00 Respiratory lung sounds Respirator Resolve 2017-2017-09-27 Evi deficit y d 2-28 11:45:00 Hai 11:45: [id number] 00 Respiratory lung sounds Respirator Resolve 2017-10-18 Evi deficit y d 3-21 11:00:00 Hai 11:00: [id number] 00 Respiratory smoker Respirator Resolve 2017-10-18 Evi y d 3-21 11:00:00 Hai 11:00: [id number] 00 Integument other wound Integument Resolve 2017-10-25 Evi present d 3-21 11:00:00 Hai 11:00: [id number] 00 Respiratory lung sounds Respirator Resolve 2018-10-09 Evi deficit y d 4-10 12:40:00 Hai 14:45: [id number] 00 Respiratory smoker Respirator Resolve 2017-2017-11-15 Evi y d 4-18 11:00:00 Hai 11:00: [id number] 00 Respiratory lung sounds Respirator Resolve 2017-2018-10-09 Evi deficit y d 4-25 12:40:00 Hai 13:40: [id number] 00 Respiratory smoker Respirator Resolve 2017-11-22 Evi y d 11-22 13:40:00 Hia 13:40: [id number] 00 Respiratory smoker Respirator Resolve 2017-12-06 Evi y d 12-06 13:15:00 Hai 13:15: [id number] 00 Respiratory lung sounds Respirator Resolve 2017-12-13 Evi deficit y d 5 13:00:00 Hai 13:00: [id number] 00 Respiratory lung sounds Respirator Resolve 2017-12-26 Evi deficit y d 12-20 12:05:00 Hai 13:15: [id number] 00 Integument other wound Integument Resolve 2017-12-26 Evi present d 12-20 12:05:00 Hai 13:15: [id number] 00 Respiratory lung sounds Respirator Resolve 2018-01-03 Evi deficit y d 606 12:38:00 Hai 12:38: [id number] 00 Respiratory lung sounds Respirator Resolve 2018-10-09 Evi deficit y d 6-13 12:40:00 Hai 15:00: [id number] 00 Respiratory smoker Respirator Resolve 2018-01-10 Evi y d 6-13 15:00:00 Hai 15:00: [id number] 00 Respiratory lung sounds Respirator Resolve 2018-01-24 Evi deficit y d 6- 13:10:00 Hai 13:10: [id number] 00 Nutrition nutritional Nutrition Active Evi restriction 01-24 Hai s 13:10: [id number] 00 Safety sanitation Safety Resolve 2018-06-05 Evi hazards d 01-24 10:35:00 Hai present 13:10: [id number] 00 Safety fall risk Safety Resolve 2018-02-19 Evi factor d 01-24 14:02:00 Hai present 13:10: [id number] 00 Safety risk for Safety Resolve 2018-10-30 Evi hospitaliza d 01-24 13:06:00 Hai tion 13:10: [id number] 00 Safety structural Safety Resolve 2018-02-19 Evi barriers d 01-24 14:02:00 Hai present 13:10: [id number] 00 Safety safety Safety Resolve 2018-02-19 Evi hazards d 01-24 14:02:00 Hai present 13:10: [id number] 00 Medication oral med Meds Active Evi assistance 01-24 Hai required 13:10: [id number] 00 Medication injectable Meds Active Evi med 01-24 Hai assistance 13:10: [id number] required 00 Respiratory lung sounds Respirator Resolve 2018-10-09 Evi deficit y d 01-29 12:40:00 Hai 13:45: [id number] 00 Respiratory smoker Respirator Resolve 2018-02-07 Evi y d 01-29 13:00:00 Hai 13:45: [id number] 00 Respiratory smoker Respirator Resolve 2018-03-01 Evi y d 02-19 11:42:00 Hai 14:02: [id number] 00 Integument other wound Integument Resolve 2018-03-21 Evi present d 02-19 15:30:00 Hai 14:02: [id number] 00 Respiratory smoker Respirator Resolve 2018-03-28 Evi y d 03-28 11:36:00 Hai 11:36: [id number] 00 Respiratory smoker Respirator Resolve 2018-04-03 Evi y d 04-03 14:00:00 Hai 14:00: [id number] 00 Respiratory smoker Respirator Resolve 2018-04-10 Evi y d 04-10 14:40:00 Hai 14:40: [id number] 00 Integument other wound Integument Resolve 2018-04-24 Evi present d 04-18 10:16:00 Hai 11:00: [id number] 00 Respiratory smoker Respirator Resolve 2017-072018-05-16 Evi y d 0 14:20:00 Hai 10:50: [id number] 00 Respiratory smoker Respirator Resolve 2017-072018-05-29 Evi y d 0 11:30:00 Hai 11:30: [id number] 00 Respiratory smoker Respirator Resolve 2017-072018-06-05 Evi y d 08-05 10:35:00 Hai 10:35: [id number] 00 Safety safety Safety Resolve 2017-072018-06-05 Evi hazards d 08-05 10:35:00 Hai present 10:35: [id number] 00 Integument other wound Integument Resolve 2017-072018-06-26 Evi present d 08-19 15:15:00 Hai 11:12: [id number] 00 Respiratory smoker Respirator Resolve 2017-072018-06-26 Evi y d 08-26 15:15:00 Hai 15:15: [id number] 00 Respiratory smoker Respirator Resolve 2017-072018-07-03 Evi y d 09-03 11:13:00 Hai 11:13: [id number] 00 Respiratory smoker Respirator Resolve 2017-072018-07-17 Evi y d 09-10 11:38:00 Hai 11:20: [id number] 00 Respiratory smoker Respirator Resolve 2017-072018-07-23 Evi y d 09-23 10:00:00 Hai 10:00: [id number] 00 Integument other wound Integument Resolve 2018-08-14 Evi present d 08-14 15:44:00 Hai 15:44: [id number] 00 Pain frequent Pain Mgmt Resolve 2018-08-28 Evi pain d 08-25 12:45:00 Hai 09:33: [id number] 56 Pain severe pain Pain Mgmt Resolve 2018-08-28 Evi d 08-25 12:45:00 Hai 09:33: [id number] 56 Integument other wound Integument Resolve 2018-08-28 Evi present d 08-25 12:45:00 Hai 09:33: [id number] 56 Respiratory smoker Respirator Resolve 2018-08-28 Evi y d 08-28 12:45:00 Hai 12:45: [id number] 00 Respiratory smoker Respirator Resolve 2018-09-04 Evi y d 09-04 11:30:00 Hai 11:30: [id number] 00 Respiratory smoker Respirator Resolve 2018-2018-09-18 Evi y d 09-10 13:30:00 Hai 16:40: [id number] 00 Pain severe pain Pain Mgmt Resolve 2018-09-25 Evi d 2- 10:30:00 Hai 13:30: [id number] 00 Neuro anxiety Neuro/Emot Unknown Evi present ion 09-18 Hai 13:30: [id number] 00 Respiratory oxygen Respirator Resolve 2018-2018-10-16 Evi treatments y d 3- 11:45:00 Hai in home 10:45: [id number] 00 Respiratory smoker Respirator Resolve 2018-10-09 Evi y d 3- 12:40:00 Hai 10:45: [id number] 00 Respiratory nebulizer Respirator Resolve 2018-10-16 Evi treatment y d 10-02 11:45:00 Hai in home 10:45: [id number] 00 Respiratory lung sounds Respirator Resolve 2018-10-16 Evi deficit y d 10-16 11:45:00 Hai 11:45: [id number] 00 Respiratory smoker Respirator Resolve 2018-10-16 Evi y d 10-16 11:45:00 Hai 11:45: [id number] 00 Integument other wound Integument Resolve 2018-10-23 Evi present d 10-16 11:20:00 Hai 11:45: [id number] 00 Respiratory nebulizer Respirator Resolve 2018-10-23 Evi treatment y d 10-23 11:20:00 Hai in home 11:20: [id number] 00 Safety safety Safety Resolve 2018-10-23 Evi hazards d 10-23 11:20:00 Hai present 11:20: [id number] 00 Respiratory lung sounds Respirator Unknown Evi deficit y 10-30 Hai 13:06: [id number] 00 Respiratory oxygen Respirator Resolve 2018-11-20 Evi treatments y d 11-06 10:35:00 Hai in home 11:31: [id number] 00 Respiratory smoker Respirator Resolve 2018-11-06 Evi y d 11-06 11:31:00 Hia 11:31: [id number] 00 Respiratory nebulizer Respirator Resolve 2018-11-20 Evi treatment y d 11-06 10:35:00 Hai in home 11:31: [id number] 00 Safety risk for Safety Resolve 2018-11-12 Evi hospitaliza d 11-06 10:00:00 Hai tion 11:31: [id number] 00 Respiratory smoker Respirator Resolve 2018-11-20 Evi y d 11-12 10:35:00 Hai 10:00: [id number] 00 Respiratory lung sounds Respirator Resolve 2018-11-20 Evi deficit y d 11-20 10:35:00 Hai 10:35: [id number] 00 Safety risk for Safety Resolve 2018-11-27 Evi hospitaliza d 11-20 11:00:00 Hai tion 10:35: [id number] 00 Pain severe pain Pain Mgmt Resolve 2018-12-04 Evi d 11-27 11:35:00 Hai 11:00: [id number] 00 Respiratory oxygen Respirator Resolve 2018-12-12 Evi treatments y d 11-27 09:08:00 Hai in home 11:00: [id number] 00 Respiratory lung sounds Respirator Resolve 2018-12-04 Evi deficit y d 11-27 11:35:00 Hai 11:00: [id number] 00 Respiratory nebulizer Respirator Resolve 2018-12-12 Evi treatment y d 11-27 09:08:00 Hai in home 11:00: [id number] 00 Respiratory smoker Respirator Resolve 2018-12-04 Evi y d 12-04 11:35:00 Hai 11:35: [id number] 00 Safety risk for Safety Resolve 2018-12-12 Evi hospitaliza d 12-04 09:08:00 Hai tion 11:35: [id number] 00 Cardio hypertensio Cardiovasc Resolve 2018-12-18 Evi n ular d 12-12 14:00:00 Hai 09:08: [id number] 00 Respiratory lung sounds Respirator Resolve 2018-12-12 Evi deficit y d 12-12 09:08:00 Hai 09:08: [id number] 00 Respiratory smoker Respirator Resolve 2018-12-12 Evi y d 12-12 09:08:00 Hai 09:08: [id number] 00 Integument other wound Integument Resolve 2018-12-18 Evi present d 5-15 14:00:00 Hai 09:08: [id number] 00 Safety risk for Safety Resolve 2018-2019-01-01 Evi hospitaliza d 12-18 13:20:00 Hai tion 14:00: [id number] 00 Cardio hypertensio Cardiovasc Resolve 2018-2019-01-01 Evi n ular d 12-25 13:20:00 Hai 10:30: [id number] 00 Respiratory oxygen Respirator Resolve 2018-2019-01-08 Evi treatments y d 5- 11:00:00 Hai in home 10:30: [id number] 00 Respiratory lung sounds Respirator Resolve 2019-01-01 Evi deficit y d 12-25 13:20:00 Hai 10:30: [id number] 00 Respiratory nebulizer Respirator Resolve 2019-01-08 Evi treatment y d 12-25 11:00:00 Hai in home 10:30: [id number] 00 Cardio hypertensio Cardiovasc Resolve 2019-01-15 Evi n ular d 6- 12:05:00 Hai 11:00: [id number] 00 Respiratory smoker Respirator Resolve 2018-2019-01-08 Evi y d 6- 11:00:00 Hai 11:00: [id number] 00 Respiratory lung sounds Respirator Resolve 2018-2019-01-08 Evi deficit y d 6-11 11:00:00 Hai 11:00: [id number] 00 Safety risk for Safety Resolve 2019-01-15 Evi hospitaliza d 6- 12:05:00 Hai tion 11:00: [id number] 00 Respiratory lung sounds Respirator Unknown Evi deficit y 01-15 Hai 12:05: [id number] 00 Respiratory nebulizer Respirator Resolve 2019-01-22 Evi treatment y d 6-18 11:45:00 Hai in home 12:05: [id number] 00 Respiratory oxygen Respirator Resolve 2019-01-22 Evi treatments y d 01-22 11:45:00 Hai in home 11:45: [id number] 00 Respiratory smoker Respirator Resolve 2019-01-22 Evi y d 6 11:45:00 Hai 11:45: [id number] 00 Respiratory lung sounds Respirator Resolve 2018-2019-02-05 Evi deficit y d 01-29 11:30:00 Hai 11:40: [id number] 00 Respiratory smoker Respirator Resolve 2019-02-05 Evi y d 01-29 11:30:00 Hai 11:40: [id number] 00 Respiratory nebulizer Respirator Resolve 2019-02-05 Evi treatment y d 01-29 11:30:00 Hai in home 11:40: [id number] 00 Pain severe pain Pain Mgmt Resolve 2019-02-12 Evi d 02-08 13:30:00 Hai 16:30: [id number] 00 Respiratory oxygen Respirator Resolve 2019-02-19 Evi treatments y d 02-12 14:00:00 Hai in home 13:30: [id number] 00 Respiratory nebulizer Respirator Resolve 2019-02-19 Evi treatment y d 02-12 14:00:00 Hai in home 13:30: [id number] 00 Integument other wound Integument Resolve 2019-02-12 Evi present d 02-12 13:30:00 Hai 13:30: [id number] 00 Safety fall risk Safety Resolve 2019-02-12 Evi factor d 02-12 13:30:00 Hai present 13:30: [id number] 00 Safety risk for Safety Resolve 2019-07-02 Evi hospitaliza d 02-12 11:45:00 Hai tion 13:30: [id number] 00 Respiratory smoker Respirator Resolve 2019-02-19 Evi y d 02-19 14:00:00 Hai 14:00: [id number] 00 Integument knowledge/s Integument Resolve 2019-02-27 Evi kill d 02-19 11:00:00 Hai deficit: pt 14:00: [id number] 00 Respiratory nebulizer Respirator Unknown Evi treatment y 02-27 Hai in home 11:00: [id number] 00 Respiratory smoker Respirator Resolve 2019-03-05 Evi y d 03-05 13:00:00 Hai 13:00: [id number] 00 Respiratory lung sounds Respirator Resolve 2019-04-09 Evi deficit y d 03-05 14:30:00 Hai 13:00: [id number] 00 Endo/Hugo glucose Endo/Hugo Resolve 2019-03-19 Evi tolerance d 03-05 13:30:00 Hai problem 13:00: [id number] 00 Endo/Hugo knowledge/s Endo/Hugo Resolve 2019-03-19 Evi kill d 03-05 13:30:00 Hai deficit 13:00: [id number] hypo/hyperg 00 lycemia: pt Integument other wound Integument Resolve 2019-03-05 Evi present d 03-05 13:00:00 Hai 13:00: [id number] 00 Respiratory oxygen Respirator Resolve 2019-03-26 Evi treatments y d 8-13 16:55:00 Hai in home 13:00: [id number] 00 Respiratory nebulizer Respirator Resolve 2019-03-26 Evi treatment y d 8 16:55:00 Hai in home 13:00: [id number] 00 Respiratory oxygen Respirator Resolve 2019-04-09 Evi treatments y d 04-02 14:30:00 Hai in home 12:15: [id number] 00 Respiratory nebulizer Respirator Resolve 2019-04-09 Evi treatment y d 04-02 14:30:00 Hai in home 12:15: [id number] 00 Endo/Hugo knowledge/s Endo/Hugo Resolve 2019-06-25 Evi kill d 04-02 12:00:00 Hai deficit: pt 12:15: [id number] 00 Endo/Hugo knowledge/s Endo/Hugo Resolve 2019-06-25 Evi kill d 04-02 12:00:00 Hai deficit 12:15: [id number] hypo/hyperg 00 lycemia: pt Respiratory smoker Respirator Resolve 2019-04-09 Evi y d 04-09 14:30:00 Hai 14:30: [id number] 00 Endo/Hugo glucose Endo/Hugo Resolve 2019-04-09 Evi tolerance d 9-10 14:30:00 Hai problem 14:30: [id number] 00 Respiratory oxygen Respirator Resolve 2019-04-23 Evi treatments y d 9-16 14:15:00 Hai in home 14:00: [id number] 00 Respiratory smoker Respirator Resolve 2019-04-23 Evi y d 9-16 14:15:00 Hai 14:00: [id number] 00 Respiratory nebulizer Respirator Resolve 2019-04-23 Evi treatment y d 9-16 14:15:00 Hai in home 14:00: [id number] 00 Endo/Hugo anti-coagul Endo/Hugo Resolve 2019-04-23 Evi ation d 9-16 14:15:00 Hai therapy 14:00: [id number] 00 Endo/Hugo glucose Endo/Hugo Resolve 2019-04-23 Evi tolerance d 9-24 14:15:00 Hai problem 14:15: [id number] 00 Respiratory lung sounds Respirator Resolve 2018-072019-05-07 Evi deficit y d 0-01 15:20:00 Hai 11:06: [id number] 00 Respiratory smoker Respirator Resolve 2018-072019-05-07 Evi y d 0-01 15:20:00 Hai 11:06: [id number] 00 Respiratory oxygen Respirator Resolve 2018-072019-05-15 Evi treatments y d 0-08 10:00:00 Hai in home 15:20: [id number] 00 Respiratory nebulizer Respirator Resolve 2018-072019-05-15 Evi treatment y d 0-08 10:00:00 Hai in home 15:20: [id number] 00 Respiratory lung sounds Respirator Resolve 2018-072019-05-15 Evi deficit y d 0-16 10:00:00 Hai 10:00: [id number] 00 Respiratory lung sounds Respirator Resolve 2018-072019-05-28 Evi deficit y d 0-23 13:15:00 Hai 09:30: [id number] 00 Respiratory oxygen Respirator Active 2018-07 Evi treatments y 0-29 Hai in home 13:15: [id number] 00 Respiratory nebulizer Respirator Active 2018-07 Evi treatment y 0-29 Hai in home 13:15: [id number] 00 Respiratory smoker Respirator Resolve 2018-072019-05-28 Evi y d 0-29 13:15:00 Hai 13:15: [id number] 00 Respiratory lung sounds Respirator Resolve 2018-072019-06-04 Evi deficit y d 1-05 12:00:00 Hai 12:00: [id number] 00 Respiratory lung sounds Respirator Resolve 2018-072019-06-25 Evi deficit y d 1-11 12:00:00 Hai 11:00: [id number] 00 Respiratory smoker Respirator Resolve 2018-072019-06-18 Evi y d 1-11 12:45:00 Hai 11:00: [id number] 00 Integument other wound Integument Resolve 2018-072019-06-18 Evi present d 1-11 12:45:00 Hai 11:00: [id number] 00 Safety fall risk Safety Resolve 2018-072019-06-25 Evi factor d 1-11 12:00:00 Hai present 11:00: [id number] 00 Respiratory smoker Respirator Resolve 2018-072019-06-25 Evi y d 1- 12:00:00 Hai 12:00: [id number] 00 Neuro anxiety Neuro/Emot Active 2018-07 Evi present ion 1-26 Hai 12:00: [id number] 00 Neuro memory Neuro/Emot Active 2018-07 Evi deficit ion 1-26 Hai needing 12:00: [id number] 00 Respiratory smoker Respirator Active 2018-07 Evi y 2-03 Hai 11:45: [id number] 00 Respiratory lung sounds Respirator Active 2018-07 Evi deficit y 2-11 Hai 13:05: [id number] 00 Safety risk for Safety Resolve 2018-072019-07-10 Evi hospitaliza d 2-11 13:05:00 Hai tion 13:05: [id number] 00 Safety risk for Safety Resolve 2018-072019-07-23 Evi hospitaliza d - 11:00:00 Hai tion 15:00: [id number] 00 Allergies, Adverse Reactions, Alerts Allergy Allergy [...] mg tablet 09-04 Leroy DUMONT lisinopril lisinopril 2018- No Darlow 20 mg Unknown 10 mg 10 mg 09-04 Leroy DUMONT (2 abs) tablet tablet traMADol 50 traMADol 50 No Darlow 50 mg Unknown mg tablet mg tablet 09-04- Leroy DUMONT traMADol ER traMADol ER No [...] liter Unknown permeable permeable 09-04 ,Leroy lens cleaner carpet and upholstery ultrasonic cleaner liquid liquid FLUoxetine FLUoxetine No Darlow [...] lyrica 2016- No [place] 100mg Unknown 09-05 ,Hugo methocarbam methocarbam No Darlow 750mg Unknown ol [...] gum mg gum 09-10 Leroy DUMONT [facility] 2017- No [place] 12mcg Unknown 12 mcg/hr 12 mcg/hr 01-09 Hugo DUMONT transdermal transdermal patch patch hydrocortis hydrocortis No Darlow Unknown Unknown one 1 % one 1 % 03-14 ,Leroy topical topical ointment ointment [facility] 2018- No [place] Unknown Unknown 25 mcg/hr 25 mcg/hr 04-26 Hugo DUMONT transdermal transdermal patch patch lisinopril lisinopril No Darlow Unknown Unknown 20 mg 20 mg 3- Leroy DUMONT tablet tablet Colace 100 Colace 100 2018- [...] No Darlow Unknown Unknown U-100 U-100 02-15 MD,Leroy Insulin 100 Insulin 100 unit/mL unit/mL [...] Observation Time Observation Value Comments SYSTOLIC mm[Hg] 2019-07-25 18:09:33 130 mm[Hg] mm[Hg] Method: Sit SYSTOLIC mm[Hg] 2019-06-12 18:08:50 142 mm[Hg] mm[Hg] Method: Stand DIASTOLIC mm[Hg] 2019-07-25 18:09:33 68 mm[Hg] mm[Hg] Method: Sit DIASTOLIC mm[Hg] 2019-06-12 18:08:50 70 mm[Hg] mm[Hg] Method: Stand PULSE 2019-07-25 18:09:33 78 /min /min RESP RATE 2019-07-25 18:09:33 16 /min /min TEMP 2019-07-25 18:09:33 97.2 [degF] Procedures This patient has no known procedures. Results This patient has no known results.
--- OUTSIDE RECORDS SUMMARY | 2019-09-17 05:43 | XMS REPORT ---
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 [id number] with with hyperglycem hyperglycem ia ia Chronic Chronic Diagnosis Active Evi obstructive obstructive 2- Hai pulmonary pulmonary [id number] disease, disease, unspecified unspecified Essential Essential Diagnosis Active Evi (primary) (primary) 2- Hai hypertensio hypertensio [id number] n n Other Other Diagnosis Active Evi chronic chronic 2- Hai pain pain [id number] 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, disorder, 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, recurrent, unspecified unspecified Gastro-esop Gastro-esop Diagnosis Active Evi hageal hageal 2- Hai reflux reflux [id number] disease disease without without esophagitis esophagitis 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 [id number] Low back Low back Diagnosis Active Evi pain pain Hai [id number] Hyperlipide Hyperlipide Diagnosis Active Evi hank, hank, Hai unspecified unspecified [id number] Hypothyroid Hypothyroid Diagnosis Active Evi ism, ism, Hai unspecified unspecified [id number] Respiratory treatments Respirator Resolve 2016-10-17 [place] ordered y d 2- 12:30:00 Son [id number] Pain frequent Pain Mgmt Resolve 2018-08-28 [place] pain d 2- 12:45:00 Son 13:13: [id number] 00 Pain knowledge/s Pain Mgmt Resolve 2015-09-09 [place] kill d 09-04 10:40:00 Son deficit: pt 13:13: [id number] 00 Pain severe pain Pain Mgmt Resolve 29 Chelsea d 2-05 12:45:00 Son 13:13: [id number] 00 Respiratory dyspnea Respirator Resolve 2016-10-17 [place] present y d 2- 12:30:00 Son 13:13: [id number] 00 Respiratory oxygen Respirator Resolve 2016-10-17 [place] treatments y d 2- 12:30:00 Son in home 13:13: [id number] 00 Respiratory knowledge/s Respirator Resolve 2015-09-16 [place] kill y d 2- 12:00:00 Son deficit: pt 13:13: [id number] 00 Respiratory lung sounds Respirator Resolve 2016-06-29 [place] deficit y d 2 13:03:00 Son 13:13: [id number] 00 Endo/Hugo knowledge/s Endo/Hugo Resolve 2015-09-16 [place] kill d 2- 12:00:00 Son deficit: pt 13:13: [id number] 00 Endo/Hugo diabetic Endo/Hugo Resolve 2016-06-29 Chelsea foot care d 2- 13:03:00 Son 13:13: [id number] 00 Nutrition knowledge/s Nutrition Resolve 2015-09-04 [place] kill d 2 13:13:00 Son deficit: pt 13:13: [id number] 00 Neuro anxiety Neuro/Emot Resolve 2016-08-02 Chelsea present ion d 2- 10:30:00 Son 13:13: [id number] 00 Neuro depressive Neuro/Emot Resolve 2016-08-02 Chelsea feelings ion d 2- 10:30:00 Son present 13:13: [id number] 00 Neuro knowledge/s Neuro/Emot Resolve 2015-09-16 [place] kill ion d 2- 12:00:00 Son deficit: pt 13:13: [id number] 00 Activity ADL Activity Resolve 2016-04-27 [place] assistance d 2- 11:15:00 Son required 13:13: [id number] 00 Activity knowledge/s Activity Resolve 2016-03-01 [place] kill d 2- 12:00:00 Son deficit: pt 13:13: [id number] 00 Safety fall risk Safety Resolve 2015-09-16 Chelsea factor d 2-05 12:00:00 Cline present 13:13: [id number] 00 Safety risk for Safety Resolve 2015-09-16 [place] hospitaliza d 2-05 12:00:00 Cline tion 13:13: [id number] 00 Medication oral med Meds Resolve 2016-08-02 [place] assistance d 2-05 10:30:00 Cline required 13:13: [id number] 00 Medication injectable Meds Resolve 2016-08-02 [place] med d 2-05 10:30:00 Cline assistance 13:13: [id number] required 00 Medication knowledge/s Meds Resolve 2016-06-29 [place] kill d 2-05 13:03:00 Son deficit: pt 13:13: [id number] 00 Medication potential Meds Resolve 2016-08-02 Chelsea clinically d 2- 10:30:00 Son significant 13:13: [id number] medication 00 issue Diagnoses knowledge/s Diagnoses Active Chelsea kill - Cline deficit: pt 13:13: [id number] 00 Pain knowledge/s Pain Mgmt Resolve 2015-09-16 Cherrise kill d 2- 12:00:00 Abbe deficit: pt 12:00: [id number] 00 Safety sanitation Safety Resolve 2016-03-01 Cherrise hazards d 2-17 12:00:00 Abbe present 12:00: [id number] 00 Safety risk for Safety Resolve 2016-03-01 Cherrise hospitaliza d 2-18 12:00:00 [place] tion 12:15: [id number] 00 Neuro knowledge/s Neuro/Emot Resolve 2016-08-16 Cherrise kill ion d 2- 12:45:00 [place] deficit: pt 13:29: [id number] 57 Safety structural Safety Resolve 2016-03-01 Cherrise barriers d 2- 12:00:00 Abbe present 13:29: [id number] 57 Respiratory knowledge/s Respirator Resolve 2016-04-27 [place] kill y d 10-27 11:15:00 Son deficit: cg 09:40: [id number] 00 Pain frequent Pain Mgmt Resolve 2018-08-28 [place] pain d 11-03 12:45:00 Son 13:04: [id number] 00 Pain knowledge/s Pain Mgmt Resolve 2016-02-24 [place] kill d 11-03 13:35:00 Son deficit: pt 13:04: [id number] 00 Respiratory knowledge/s Respirator Resolve 2016-04-27 [place] kill y d 11-03 11:15:00 Son deficit: pt 13:04: [id number] 00 Safety fall risk Safety Resolve 2016-03-01 Chelsea factor d 11-03 12:00:00 Son present 13:04: [id number] 00 Endo/Hugo insulin Endo/Hugo Resolve 2016-10-17 Chelsea admn d 11-24 12:30:00 Son dependence 10:48: [id number] 00 Safety safety Safety Resolve 2016-03-01 [place] hazards d 12-22 12:00:00 Cline present 09:15: [id number] 00 Elimination constipatio Eliminatio Resolve 2016-03-01 [place] n n d 12-29 12:00:00 Son 13:33: [id number] 00 IV IV present IV Resolve 2016-01-26 Chelsea d 12-29 11:50:00 Son 13:33: [id number] 00 Integument skin Integument Resolve 2016-04-27 Anna integrity d 01-25 11:15:00 Regeczi risk 11:50: [id number] 00 Nutrition knowledge/s Nutrition Resolve 2016-03-01 Cherrise kill d 02-26 12:00:00 [place] deficit: pt 10:00: [id number] 00 Pain frequent Pain Mgmt Resolve 2018-08-28 [place] pain d 03-01 12:45:00 Son 12:00: [id number] 00 Nutrition knowledge/s Nutrition Resolve 2016-04-06 Neida kill d 03-23 14:54:00 [place] deficit: pt 13:30: RN 00 Endo/Hugo insulin Endo/Hugo Resolve 2016-10-17 [place] admn d 04-06 12:30:00 Cline dependence 14:54: [id number] 00 Nutrition changing Nutrition Resolve 2016-05-10 Chelsea weight/appe d 04-27 11:45:00 Son tite 11:15: [id number] 00 Nutrition knowledge/s Nutrition Resolve 2016-04-27 [place] kill d 04-27 11:15:00 Son deficit: pt 11:15: [id number] 00 Cardio hypertensio Cardiovasc Resolve 2016-09-20 Evi n ular d 08-02 10:00:00 Hai 10:30: [id number] 00 Respiratory lung sounds Respirator Resolve 2016-08-25 Evi deficit y d 08-02 10:30:00 Hai 10:30: [id number] 00 Respiratory CPAP Respirator Resolve 2016-10-17 Evi treatments y d 08-02 12:30:00 Hai in home 10:30: [id number] 00 Respiratory dyspnea Respirator Resolve 2016-10-17 Evi present y d 08-02 12:30:00 Hai 10:30: [id number] 00 Respiratory oxygen Respirator Resolve 2016-10-17 Evi treatments y d 08-02 12:30:00 Hai in home 10:30: [id number] 00 Integument knowledge/s Integument Resolve 2016-08-16 Evi kill d 08-02 12:45:00 Hai deficit: pt 10:30: [id number] 00 Medication knowledge/s Meds Resolve 2016-08-25 Evi kill d 08-02 10:30:00 Hai deficit: pt 10:30: [id number] 00 Neuro anxiety Neuro/Emot Resolve 2016-10-17 Evi present ion d 08-16 12:30:00 Hai 12:45: [id number] 00 Integument knowledge/s Integument Resolve 2016-08-25 Evi kill d 08-25 10:30:00 Hai deficit: pt 10:30: [id number] 00 Nutrition nutritional Nutrition Resolve 2016-08-25 Evi restriction d 08-25 10:30:00 Hai s 10:30: [id number] 00 Neuro knowledge/s Neuro/Emot Resolve 2016-2016-08-25 Evi kill ion d 08-25 10:30:00 Hai deficit: pt 10:30: [id number] 00 Medication oral med Meds Resolve 2016-08-25 Evi assistance d 08-25 10:30:00 Hai required 10:30: [id number] 00 Respiratory oxygen Respirator Unknown Evi treatments y 2-06 Hai in home 14:30: [id number] 00 Integument knowledge/s Integument Resolve 2016-09-05 Evi kill d 09-05 14:30:00 Hai deficit: pt 14:30: [id number] 00 Medication oral med Meds Resolve 2016-10-17 Evi assistance d 09-05 12:30:00 Hai required 14:30: [id number] 00 Medication knowledge/s Meds Resolve 2016-12-05 Evi kill d 09-05 17:00:00 Hai deficit: pt 14:30: [id number] 00 Respiratory lung sounds Respirator Resolve 2016-09-20 Evi deficit y d 2- 10:00:00 Hai 10:00: [id number] 00 Integument knowledge/s Integument Resolve 2016-10-17 Evi kill d 2- 12:30:00 Hai deficit: pt 10:00: [id number] 00 Integument other wound Integument Resolve 2016-10-17 Evi present d 2- 12:30:00 Hai 10:00: [id number] 00 Respiratory lung sounds Respirator Resolve 2018-10-09 Evi deficit y d 3-06 12:40:00 Hai 15:00: [id number] 00 Respiratory CPAP Respirator Unknown Evi treatments y 3-06 Hai in home 15:00: [id number] 00 Respiratory smoker Respirator Resolve 2016-10-17 Evi y d 3-06 12:30:00 Hai 15:00: [id number] 00 Respiratory nebulizer Respirator Unknown Evi treatment y 3-06 Hai in home 15:00: [id number] 00 Respiratory dyspnea Respirator Resolve 2016-11-07 Evi present y d 10-25 12:20:00 Hai 14:15: [id number] 00 Respiratory oxygen Respirator Unknown Evi treatments y 10-25 Hai in home 14:15: [id number] 00 Respiratory smoker Respirator Resolve 2016-11-07 Evi y d 10-25 12:20:00 Hai 14:15: [id number] 00 Integument other wound Integument Resolve 2016-10-25 Evi present d 10-25 14:15:00 Hai 14:15: [id number] 00 Nutrition nutritional Nutrition Resolve 2016-11-07 Evi restriction d 10-25 12:20:00 Hai s 14:15: [id number] 00 Neuro anxiety Neuro/Emot Resolve 2016-11-07 Evi present ion d 10-25 12:20:00 Hai 14:15: [id number] 00 Medication oral med Meds Resolve 2016-12-05 Evi assistance d 10-25 17:00:00 Hai required 14:15: [id number] 00 Medication potential Meds Resolve 2016-12-05 Evi clinically d 11-07 17:00:00 Hai significant 12:20: [id number] medication 00 issue Respiratory dyspnea Respirator Resolve 2016-11-21 Evi present y d 11-14 13:30:00 Hai 14:00: [id number] 00 Respiratory oxygen Respirator Unknown Evi treatments y 11-21 Hai in home 13:30: [id number] 00 Respiratory lung sounds Respirator Resolve 2018-10-09 Evi deficit y d 11-21 12:40:00 Hai 13:30: [id number] 00 Respiratory smoker Respirator Resolve 2016-11-21 Evi y d 11-21 13:30:00 Hai 13:30: [id number] 00 Respiratory nebulizer Respirator Unknown Evi treatment y 11-21 Hai in home 13:30: [id number] 00 Neuro anxiety Neuro/Emot Resolve 2016-12-25 Evi present ion d 11-21 13:30:00 Hai 13:30: [id number] 00 Respiratory oxygen Respirator Resolve 2018-09-18 Evi treatments y d 12-05 13:30:00 Hai in home 17:00: [id number] 00 Respiratory smoker Respirator Resolve 2016-12-05 Evi y d 12-05 17:00:00 Hai 17:00: [id number] 00 Respiratory nebulizer Respirator Resolve 2018-09-18 Evi treatment y d 12-05 13:30:00 Hai in home 17:00: [id number] 00 Endo/Hugo knowledge/s Endo/Hugo Resolve 2016-12-19 Evi kill d 12-05 13:00:00 Hai deficit: pt 17:00: [id number] 00 Medication knowledge/s Meds Resolve 2016-12-25 Evi kill d 12-19 13:30:00 Hai deficit: pt 13:00: [id number] 00 Respiratory dyspnea Respirator Resolve 2017-02-27 Evi present y d 12-25 12:30:00 Hai 13:30: [id number] 00 Integument other wound Integument Resolve 2017-01-02 Evi present d 12-25 11:50:00 Hai 13:30: [id number] 00 Medication knowledge/s Meds Resolve 2016-12-25 Evi kill d 12-25 13:30:00 Hai deficit: pt 13:30: [id number] 00 Respiratory smoker Respirator Resolve 2017-01-16 Evi y d 01-16 15:00:00 Hai 15:00: [id number] 00 Respiratory lung sounds Respirator Resolve 2017-02-13 Evi deficit y d 02-13 12:45:00 Hai 12:45: [id number] 00 Respiratory smoker Respirator Resolve 2017-02-13 Evi y d 02-13 12:45:00 Hai 12:45: [id number] 00 Respiratory smoker Respirator Resolve 2017-02-27 Evi y d 02-24 12:30:00 Hai 13:00: [id number] 00 Integument other wound Integument Resolve 2017-02-24 Evi present d 02-24 13:00:00 Hai 13:00: [id number] 00 Nutrition nutritional Nutrition Resolve 2017-04-03 [place]me[place] restriction d - 12:25:00 Eric garcia 13:00: an 00 Integument other wound Integument Resolve 2017-05-01 Evi present d 04-25 12:15:00 Hai 13:00: [id number] 00 Neuro depressive Neuro/Emot Resolve 2017-05-01 Evi feelings ion d 04-25 12:15:00 Hai present 13:00: [id number] 00 Neuro anxiety Neuro/Emot Resolve 2017-05-01 Evi present ion d 04-25 12:15:00 Hai 13:00: [id number] 00 Respiratory lung sounds Respirator Resolve 2016-072017-05-01 Evi deficit y d 0- 12:15:00 Hai 12:15: [id number] 00 Respiratory smoker Respirator Resolve 2016-072017-06-12 Evi y d 1- 11:14:00 Hai 11:14: [id number] 00 Respiratory smoker Respirator Resolve 2016-072017-06-21 Evi y d 08-21 11:15:00 Hai 11:15: [id number] 00 Integument other wound Integument Resolve 2016-072017-06-21 Evi present d 08-21 11:15:00 Hai 11:15: [id number] 00 Respiratory lung sounds Respirator Resolve 2016-072017-06-26 Evi deficit y d 08-26 12:15:00 Hai 12:15: [id number] 00 Respiratory lung sounds Respirator Unknown 2016-07 Evi deficit y 2-11 Hai 12:20: [id number] 00 Respiratory smoker Respirator Resolve 2016-072017-08-03 Evi y d 2-28 11:30:00 Hai 12:10: [id number] 00 Respiratory lung sounds Respirator Resolve 2017-08-03 Evi deficit y d 1- 11:30:00 Hai 11:30: [id number] 00 Respiratory lung sounds Respirator Resolve 2017-08-07 Evi deficit y d 1- 10:20:00 Hai 10:20: [id number] 00 Respiratory smoker Respirator Resolve 2017-08-07 Evi y d 1-08 10:20:00 Hai 10:20: [id number] 00 Respiratory lung sounds Respirator Resolve 2017-2017-08-14 Evi deficit y d 1-15 11:30:00 Hai 11:30: [id number] 00 Respiratory smoker Respirator Resolve 2017-2017-08-14 Evi y d 1-15 11:30:00 Hai 11:30: [id number] 00 Integument other wound Integument Resolve 2017-2017-08-21 Evi present d 1- 10:50:00 Hai 10:50: [id number] 00 Respiratory smoker Respirator Resolve 2017-2017-09-04 Evi y d 1- 12:40:00 Hai 12:30: [id number] 00 Respiratory lung sounds Respirator Resolve 2017-09-11 Evi deficit y d 2-12 13:00:00 Hai 13:00: [id number] 00 Respiratory lung sounds Respirator Resolve 2017-09-20 Evi deficit y d 2-21 11:15:00 Hai 11:15: [id number] 00 Respiratory lung sounds Respirator Resolve 2017-2017-09-27 Evi deficit y d 2-28 11:45:00 Hai 11:45: [id number] 00 Respiratory lung sounds Respirator Resolve 2017-10-18 Evi deficit y d 3-21 11:00:00 Hai 11:00: [id number] 00 Respiratory smoker Respirator Resolve 2017-10-18 Evi y d 3-21 11:00:00 Hai 11:00: [id number] 00 Integument other wound Integument Resolve 2017-10-25 Evi present d 3-21 11:00:00 Hai 11:00: [id number] 00 Respiratory lung sounds Respirator Resolve 2018-10-09 Evi deficit y d 4-10 12:40:00 Hai 14:45: [id number] 00 Respiratory smoker Respirator Resolve 2017-2017-11-15 Evi y d 4-18 11:00:00 Hai 11:00: [id number] 00 Respiratory lung sounds Respirator Resolve 2017-2018-10-09 Evi deficit y d 4-25 12:40:00 Hai 13:40: [id number] 00 Respiratory smoker Respirator Resolve 2017-11-22 Evi y d 11-22 13:40:00 Hai 13:40: [id number] 00 Respiratory smoker Respirator Resolve 2017-12-06 Evi y d 12-06 13:15:00 Hai 13:15: [id number] 00 Respiratory lung sounds Respirator Resolve 2017-12-13 Evi deficit y d 5 13:00:00 Hai 13:00: [id number] 00 Respiratory lung sounds Respirator Resolve 2017-12-26 Evi deficit y d 12-20 12:05:00 Hai 13:15: [id number] 00 Integument other wound Integument Resolve 2017-12-26 Evi present d 12-20 12:05:00 Hai 13:15: [id number] 00 Respiratory lung sounds Respirator Resolve 2018-01-03 Evi deficit y d 606 12:38:00 Hai 12:38: [id number] 00 Respiratory lung sounds Respirator Resolve 2018-10-09 Evi deficit y d 6-13 12:40:00 Hai 15:00: [id number] 00 Respiratory smoker Respirator Resolve 2018-01-10 Evi y d 6-13 15:00:00 Hai 15:00: [id number] 00 Respiratory lung sounds Respirator Resolve 2018-01-24 Evi deficit y d 6- 13:10:00 Hai 13:10: [id number] 00 Nutrition nutritional Nutrition Active Evi restriction 01-24 Hai s 13:10: [id number] 00 Safety sanitation Safety Resolve 2018-06-05 Evi hazards d 01-24 10:35:00 Hai present 13:10: [id number] 00 Safety fall risk Safety Resolve 2018-02-19 Evi factor d 01-24 14:02:00 Hai present 13:10: [id number] 00 Safety risk for Safety Resolve 2018-10-30 Evi hospitaliza d 01-24 13:06:00 Hai tion 13:10: [id number] 00 Safety structural Safety Resolve 2018-02-19 Evi barriers d 01-24 14:02:00 Hai present 13:10: [id number] 00 Safety safety Safety Resolve 2018-02-19 Evi hazards d 01-24 14:02:00 Hai present 13:10: [id number] 00 Medication oral med Meds Active Evi assistance 01-24 Hai required 13:10: [id number] 00 Medication injectable Meds Active Evi med 01-24 Hai assistance 13:10: [id number] required 00 Respiratory lung sounds Respirator Resolve 2018-10-09 Evi deficit y d 01-29 12:40:00 Hai 13:45: [id number] 00 Respiratory smoker Respirator Resolve 2018-02-07 Evi y d 01-29 13:00:00 Hai 13:45: [id number] 00 Respiratory smoker Respirator Resolve 2018-03-01 Evi y d 02-19 11:42:00 Hai 14:02: [id number] 00 Integument other wound Integument Resolve 2018-03-21 Evi present d 02-19 15:30:00 Hai 14:02: [id number] 00 Respiratory smoker Respirator Resolve 2018-03-28 Evi y d 03-28 11:36:00 Hai 11:36: [id number] 00 Respiratory smoker Respirator Resolve 2018-04-03 Evi y d 04-03 14:00:00 Hai 14:00: [id number] 00 Respiratory smoker Respirator Resolve 2018-04-10 Evi y d 04-10 14:40:00 Hai 14:40: [id number] 00 Integument other wound Integument Resolve 2018-04-24 Evi present d 04-18 10:16:00 Hai 11:00: [id number] 00 Respiratory smoker Respirator Resolve 2017-072018-05-16 Evi y d 0 14:20:00 Hai 10:50: [id number] 00 Respiratory smoker Respirator Resolve 2017-072018-05-29 Evi y d 0 11:30:00 Hai 11:30: [id number] 00 Respiratory smoker Respirator Resolve 2017-072018-06-05 Evi y d 08-05 10:35:00 Hai 10:35: [id number] 00 Safety safety Safety Resolve 2017-072018-06-05 Evi hazards d 08-05 10:35:00 Hai present 10:35: [id number] 00 Integument other wound Integument Resolve 2017-072018-06-26 Evi present d 08-19 15:15:00 Hai 11:12: [id number] 00 Respiratory smoker Respirator Resolve 2017-072018-06-26 Evi y d 08-26 15:15:00 Hai 15:15: [id number] 00 Respiratory smoker Respirator Resolve 2017-072018-07-03 Evi y d 09-03 11:13:00 Hai 11:13: [id number] 00 Respiratory smoker Respirator Resolve 2017-072018-07-17 Evi y d 09-10 11:38:00 Hai 11:20: [id number] 00 Respiratory smoker Respirator Resolve 2017-072018-07-23 Evi y d 09-23 10:00:00 Hai 10:00: [id number] 00 Integument other wound Integument Resolve 2018-08-14 Evi present d 08-14 15:44:00 Hai 15:44: [id number] 00 Pain frequent Pain Mgmt Resolve 2018-08-28 Evi pain d 08-25 12:45:00 Hai 09:33: [id number] 56 Pain severe pain Pain Mgmt Resolve 2018-08-28 Evi d 08-25 12:45:00 Hai 09:33: [id number] 56 Integument other wound Integument Resolve 2018-08-28 Evi present d 08-25 12:45:00 Hai 09:33: [id number] 56 Respiratory smoker Respirator Resolve 2018-08-28 Evi y d 08-28 12:45:00 Hai 12:45: [id number] 00 Respiratory smoker Respirator Resolve 2018-09-04 Evi y d 09-04 11:30:00 Hai 11:30: [id number] 00 Respiratory smoker Respirator Resolve 2018-2018-09-18 Evi y d 09-10 13:30:00 Hai 16:40: [id number] 00 Pain severe pain Pain Mgmt Resolve 2018-09-25 Evi d 2- 10:30:00 Hai 13:30: [id number] 00 Neuro anxiety Neuro/Emot Unknown Evi present ion 09-18 Hai 13:30: [id number] 00 Respiratory oxygen Respirator Resolve 2018-2018-10-16 Evi treatments y d 3- 11:45:00 Hai in home 10:45: [id number] 00 Respiratory smoker Respirator Resolve 2018-10-09 Evi y d 3- 12:40:00 Hai 10:45: [id number] 00 Respiratory nebulizer Respirator Resolve 2018-10-16 Evi treatment y d 10-02 11:45:00 Hai in home 10:45: [id number] 00 Respiratory lung sounds Respirator Resolve 2018-10-16 Evi deficit y d 10-16 11:45:00 Hai 11:45: [id number] 00 Respiratory smoker Respirator Resolve 2018-10-16 Evi y d 10-16 11:45:00 Hai 11:45: [id number] 00 Integument other wound Integument Resolve 2018-10-23 Evi present d 10-16 11:20:00 Hai 11:45: [id number] 00 Respiratory nebulizer Respirator Resolve 2018-10-23 Evi treatment y d 10-23 11:20:00 Hai in home 11:20: [id number] 00 Safety safety Safety Resolve 2018-10-23 Evi hazards d 10-23 11:20:00 Hai present 11:20: [id number] 00 Respiratory lung sounds Respirator Unknown Evi deficit y 10-30 Hai 13:06: [id number] 00 Respiratory oxygen Respirator Resolve 2018-11-20 Evi treatments y d 11-06 10:35:00 Hai in home 11:31: [id number] 00 Respiratory smoker Respirator Resolve 2018-11-06 Evi y d 11-06 11:31:00 Hai 11:31: [id number] 00 Respiratory nebulizer Respirator Resolve 2018-11-20 Evi treatment y d 11-06 10:35:00 Hai in home 11:31: [id number] 00 Safety risk for Safety Resolve 2018-11-12 Evi hospitaliza d 11-06 10:00:00 Hai tion 11:31: [id number] 00 Respiratory smoker Respirator Resolve 2018-11-20 Evi y d 11-12 10:35:00 Hai 10:00: [id number] 00 Respiratory lung sounds Respirator Resolve 2018-11-20 Evi deficit y d 11-20 10:35:00 Hai 10:35: [id number] 00 Safety risk for Safety Resolve 2018-11-27 Evi hospitaliza d 11-20 11:00:00 Hai tion 10:35: [id number] 00 Pain severe pain Pain Mgmt Resolve 2018-12-04 Evi d 11-27 11:35:00 Hai 11:00: [id number] 00 Respiratory oxygen Respirator Resolve 2018-12-12 Evi treatments y d 11-27 09:08:00 Hai in home 11:00: [id number] 00 Respiratory lung sounds Respirator Resolve 2018-12-04 Evi deficit y d 11-27 11:35:00 Hai 11:00: [id number] 00 Respiratory nebulizer Respirator Resolve 2018-12-12 Evi treatment y d 11-27 09:08:00 Hai in home 11:00: [id number] 00 Respiratory smoker Respirator Resolve 2018-12-04 Evi y d 12-04 11:35:00 Hai 11:35: [id number] 00 Safety risk for Safety Resolve 2018-12-12 Evi hospitaliza d 12-04 09:08:00 Hai tion 11:35: [id number] 00 Cardio hypertensio Cardiovasc Resolve 2018-12-18 Evi n ular d 12-12 14:00:00 Hai 09:08: [id number] 00 Respiratory lung sounds Respirator Resolve 2018-12-12 Evi deficit y d 12-12 09:08:00 Hai 09:08: [id number] 00 Respiratory smoker Respirator Resolve 2018-12-12 Evi y d 12-12 09:08:00 Hai 09:08: [id number] 00 Integument other wound Integument Resolve 2018-12-18 Evi present d 5-15 14:00:00 Hai 09:08: [id number] 00 Safety risk for Safety Resolve 2018-2019-01-01 Evi hospitaliza d 12-18 13:20:00 Hai tion 14:00: [id number] 00 Cardio hypertensio Cardiovasc Resolve 2018-2019-01-01 Evi n ular d 12-25 13:20:00 Hai 10:30: [id number] 00 Respiratory oxygen Respirator Resolve 2018-2019-01-08 Evi treatments y d 5- 11:00:00 Hai in home 10:30: [id number] 00 Respiratory lung sounds Respirator Resolve 2019-01-01 Evi deficit y d 12-25 13:20:00 Hai 10:30: [id number] 00 Respiratory nebulizer Respirator Resolve 2019-01-08 Evi treatment y d 12-25 11:00:00 Hai in home 10:30: [id number] 00 Cardio hypertensio Cardiovasc Resolve 2019-01-15 Evi n ular d 6- 12:05:00 Hai 11:00: [id number] 00 Respiratory smoker Respirator Resolve 2018-2019-01-08 Evi y d 6- 11:00:00 Hai 11:00: [id number] 00 Respiratory lung sounds Respirator Resolve 2018-2019-01-08 Evi deficit y d 6-11 11:00:00 Hai 11:00: [id number] 00 Safety risk for Safety Resolve 2019-01-15 Evi hospitaliza d 6- 12:05:00 Hai tion 11:00: [id number] 00 Respiratory lung sounds Respirator Unknown Evi deficit y 01-15 Hai 12:05: [id number] 00 Respiratory nebulizer Respirator Resolve 2019-01-22 Evi treatment y d 6-18 11:45:00 Hai in home 12:05: [id number] 00 Respiratory oxygen Respirator Resolve 2019-01-22 Evi treatments y d 01-22 11:45:00 Hai in home 11:45: [id number] 00 Respiratory smoker Respirator Resolve 2019-01-22 Evi y d 6 11:45:00 Hai 11:45: [id number] 00 Respiratory lung sounds Respirator Resolve 2018-2019-02-05 Evi deficit y d 01-29 11:30:00 Hai 11:40: [id number] 00 Respiratory smoker Respirator Resolve 2019-02-05 Evi y d 01-29 11:30:00 Hai 11:40: [id number] 00 Respiratory nebulizer Respirator Resolve 2019-02-05 Evi treatment y d 01-29 11:30:00 Hai in home 11:40: [id number] 00 Pain severe pain Pain Mgmt Resolve 2019-02-12 Evi d 02-08 13:30:00 Hai 16:30: [id number] 00 Respiratory oxygen Respirator Resolve 2019-02-19 Evi treatments y d 02-12 14:00:00 Hai in home 13:30: [id number] 00 Respiratory nebulizer Respirator Resolve 2019-02-19 Evi treatment y d 02-12 14:00:00 Hai in home 13:30: [id number] 00 Integument other wound Integument Resolve 2019-02-12 Evi present d 02-12 13:30:00 Hai 13:30: [id number] 00 Safety fall risk Safety Resolve 2019-02-12 Evi factor d 02-12 13:30:00 Hai present 13:30: [id number] 00 Safety risk for Safety Resolve 2019-07-02 Evi hospitaliza d 02-12 11:45:00 Hai tion 13:30: [id number] 00 Respiratory smoker Respirator Resolve 2019-02-19 Evi y d 02-19 14:00:00 Hai 14:00: [id number] 00 Integument knowledge/s Integument Resolve 2019-02-27 Evi kill d 02-19 11:00:00 Hai deficit: pt 14:00: [id number] 00 Respiratory nebulizer Respirator Unknown Evi treatment y 02-27 Hai in home 11:00: [id number] 00 Respiratory smoker Respirator Resolve 2019-03-05 Evi y d 03-05 13:00:00 Hai 13:00: [id number] 00 Respiratory lung sounds Respirator Resolve 2019-04-09 Evi deficit y d 03-05 14:30:00 Hai 13:00: [id number] 00 Endo/Hugo glucose Endo/Hugo Resolve 2019-03-19 Evi tolerance d 03-05 13:30:00 Hai problem 13:00: [id number] 00 Endo/Hugo knowledge/s Endo/Hugo Resolve 2019-03-19 Evi kill d 03-05 13:30:00 Hai deficit 13:00: [id number] hypo/hyperg 00 lycemia: pt Integument other wound Integument Resolve 2019-03-05 Evi present d 03-05 13:00:00 Hai 13:00: [id number] 00 Respiratory oxygen Respirator Resolve 2019-03-26 Evi treatments y d 8-13 16:55:00 Hai in home 13:00: [id number] 00 Respiratory nebulizer Respirator Resolve 2019-03-26 Evi treatment y d 8 16:55:00 Hai in home 13:00: [id number] 00 Respiratory oxygen Respirator Resolve 2019-04-09 Evi treatments y d 04-02 14:30:00 Hai in home 12:15: [id number] 00 Respiratory nebulizer Respirator Resolve 2019-04-09 Evi treatment y d 04-02 14:30:00 Hai in home 12:15: [id number] 00 Endo/Hugo knowledge/s Endo/Hugo Resolve 2019-06-25 Evi kill d 04-02 12:00:00 Hai deficit: pt 12:15: [id number] 00 Endo/Hugo knowledge/s Endo/Hugo Resolve 2019-06-25 Evi kill d 04-02 12:00:00 Hai deficit 12:15: [id number] hypo/hyperg 00 lycemia: pt Respiratory smoker Respirator Resolve 2019-04-09 Evi y d 04-09 14:30:00 Hai 14:30: [id number] 00 Endo/Hugo glucose Endo/Hugo Resolve 2019-04-09 Evi tolerance d 9-10 14:30:00 Hai problem 14:30: [id number] 00 Respiratory oxygen Respirator Resolve 2019-04-23 Evi treatments y d 9-16 14:15:00 Hai in home 14:00: [id number] 00 Respiratory smoker Respirator Resolve 2019-04-23 Evi y d 9-16 14:15:00 Hai 14:00: [id number] 00 Respiratory nebulizer Respirator Resolve 2019-04-23 Evi treatment y d 9-16 14:15:00 Hai in home 14:00: [id number] 00 Endo/Hugo anti-coagul Endo/Hugo Resolve 2019-04-23 Evi ation d 9-16 14:15:00 Hai therapy 14:00: [id number] 00 Endo/Hugo glucose Endo/Hugo Resolve 2019-04-23 Evi tolerance d 9-24 14:15:00 Hai problem 14:15: [id number] 00 Respiratory lung sounds Respirator Resolve 2018-072019-05-07 Evi deficit y d 0-01 15:20:00 Hai 11:06: [id number] 00 Respiratory smoker Respirator Resolve 2018-072019-05-07 Evi y d 0-01 15:20:00 Hai 11:06: [id number] 00 Respiratory oxygen Respirator Resolve 2018-072019-05-15 Evi treatments y d 0-08 10:00:00 Hai in home 15:20: [id number] 00 Respiratory nebulizer Respirator Resolve 2018-072019-05-15 Evi treatment y d 0-08 10:00:00 Hai in home 15:20: [id number] 00 Respiratory lung sounds Respirator Resolve 2018-072019-05-15 Evi deficit y d 0-16 10:00:00 Hai 10:00: [id number] 00 Respiratory lung sounds Respirator Resolve 2018-072019-05-28 Evi deficit y d 0-23 13:15:00 Hai 09:30: [id number] 00 Respiratory oxygen Respirator Active 2018-07 Evi treatments y 0-29 Hai in home 13:15: [id number] 00 Respiratory nebulizer Respirator Active 2018-07 Evi treatment y 0-29 Hai in home 13:15: [id number] 00 Respiratory smoker Respirator Resolve 2018-072019-05-28 Evi y d 0-29 13:15:00 Hai 13:15: [id number] 00 Respiratory lung sounds Respirator Resolve 2018-072019-06-04 Evi deficit y d 1-05 12:00:00 Hai 12:00: [id number] 00 Respiratory lung sounds Respirator Resolve 2018-072019-06-25 Evi deficit y d 1-11 12:00:00 Hai 11:00: [id number] 00 Respiratory smoker Respirator Resolve 2018-072019-06-18 Evi y d 1-11 12:45:00 Hai 11:00: [id number] 00 Integument other wound Integument Resolve 2018-072019-06-18 Evi present d 1-11 12:45:00 Hai 11:00: [id number] 00 Safety fall risk Safety Resolve 2018-072019-06-25 Evi factor d 1-11 12:00:00 Hai present 11:00: [id number] 00 Respiratory smoker Respirator Resolve 2018-072019-06-25 Evi y d 1- 12:00:00 Hai 12:00: [id number] 00 Neuro anxiety Neuro/Emot Active 2018-07 Evi present ion 1-26 Hai 12:00: [id number] 00 Neuro memory Neuro/Emot Active 2018-07 Evi deficit ion 1-26 Hai needing 12:00: [id number] 00 Respiratory smoker Respirator Active 2018-07 Evi y 2-03 Hai 11:45: [id number] 00 Respiratory lung sounds Respirator Active 2018-07 Evi deficit y 2-11 Hai 13:05: [id number] 00 Safety risk for Safety Resolve 2018-072019-07-10 Evi hospitaliza d 2-11 13:05:00 Hai tion 13:05: [id number] 00 Safety risk for Safety Active 2018-07 Evi hospitaliza - Hai tion 15:00: [id number] 00 Allergies, Adverse Reactions, Alerts Allergy Allergy Type Status Severity Reaction(s) Onset Inactive Treating Comments Name Date Date Clinician ibuprofen Base Active Unknown Nausea and 2016- Cari Ingredient vomiting 09-03 Mercado Lidopatch Medication [...] 20 mg Unknown 10 mg 10 mg 09-04- Leroy DUMONT (2 abs) tablet tablet traMADol 50 traMADol 50 No Darlow 50 mg Unknown mg tablet mg tablet 09-04-16 Leroy DUMONT traMADol ER traMADol ER No Darlow 200 mg Unknown 200 mg 200 mg 09-04- ,Leroy capsule capsule 24h,extende 24h,extende d d release(25- release(25- 75) 75) methocarbam methocarbam No Darlow 500 mg Unknown ol 500 mg ol 500 mg 09-04- Leroy DUMONT tablet tablet ProAir HFA ProAir HFA No Darlow 2 puffs Unknown 90 90 2- Lesli DUMONTyd mcg/actuati mcg/actuati on aerosol on aerosol inhaler inhaler Pataday 0.2 Pataday 0.2 2016- No Darlow 1 drop Unknown % eye [...] mg Unknown 1,000 mg 1,000 mg 09-04 Leroy DUMONT tablet tablet Lyrica 75 Lyrica 75 No [...] liter Unknown permeable permeable 09-04 ,Leroy lens frame cleaner pattern cleaner liquid liquid FLUoxetine FLUoxetine No Darlow [...] tablet mg tablet 04-15 MD,Leroy amoxicillin amoxicillin 2015-07 No Darlow 1 Unknown [id number] 08-09 ,Leroy mg-potassiu mg-potassiu m m clavulanate clavulanate 125 mg 125 mg tablet tablet Lyrica 100 Lyrica 100 2015-07- No [place] Unknown Unknown mg capsule mg capsule 08-06 ,Hugo amoxicillin amoxicillin 2016- No Darlow 875/125 [...] DUMONT cap Lantus Lantus 2018- No Darlow 12- Unknown U-100 U-100 04-04 Leroy DUMONT units [...] [place] Unknown Unknown mg capsule mg capsule 02-0616 ,Hugo Fluocinonid Fluocinonid No Yentzer Unknown Unknown [...] [place] Unknown Unknown mg capsule mg capsule -16 Hugo DUMONT Spiriva Spiriva 2018-07 Yes Samantha Unknown Unknown Respimat Respimat 1-11 Citlali DUMONT 2.5 2.5 mcg/actuati mcg/actuati on solution on solution for for inhalation inhalation fentaNYL 12 fentaNYL 12 2018-07 Yes [place] Unknown Unknown mcg/hr mcg/hr 2-13 Hugo DUMONT transdermal transdermal patch patch Vital Signs Vital Name Observation Time Observation Value Comments SYSTOLIC mm[Hg] 2019-07-16 18:09:24 172 mm[Hg] mm[Hg] Method: Sit SYSTOLIC mm[Hg] 2019-06-12 18:08:50 142 mm[Hg] mm[Hg] Method: Stand DIASTOLIC mm[Hg] 2019-07-16 18:09:24 90 mm[Hg] mm[Hg] Method: Sit DIASTOLIC mm[Hg] 2019-06-12 18:08:50 70 mm[Hg] mm[Hg] Method: Stand PULSE 2019-07-16 18:09:24 78 /min /min RESP RATE 2019-07-16 18:09:24 18 /min /min TEMP 2019-07-16 18:09:24 98.1 [degF] Procedures This patient has no known procedures. Results This patient has no known results.
--- OUTSIDE RECORDS SUMMARY | 2019-09-17 05:43 | XMS REPORT ---
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 hyperglycem ia ia Chronic Chronic Diagnosis Active Evi obstructive obstructive 2- Hai pulmonary pulmonary [id number] disease, disease, unspecified unspecified Essential Essential Diagnosis Active Evi (primary) (primary) 2- Hai hypertensio hypertensio [id number] n n Other Other Diagnosis Active Evi chronic chronic 2- Hai pain pain [id number] 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, disorder, 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, recurrent, unspecified unspecified Gastro-esop Gastro-esop Diagnosis Active Evi hageal hageal 2- Hai reflux reflux [id number] disease disease without without esophagitis esophagitis 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 [id number] Low back Low back Diagnosis Active Evi pain pain Hai [id number] Hyperlipide Hyperlipide Diagnosis Active Evi hank, hank, Hai unspecified unspecified [id number] Hypothyroid Hypothyroid Diagnosis Active Evi ism, ism, Hai unspecified unspecified [id number] Respiratory treatments Respirator Resolve 2016-10-17 Chelsea ordered y d 2- 12:30:00 Son [id number] Pain frequent Pain Mgmt Resolve 2018-08-28 Chelsea pain d 2- 12:45:00 Son 13:13: [id number] 00 Pain knowledge/s Pain Mgmt Resolve 2015-09-09 Chelsea kill d 09-04 10:40:00 Son deficit: pt 13:13: [id number] 00 Pain severe pain Pain Mgmt Resolve 29 Chelsea d 2-05 12:45:00 Son 13:13: [id number] 00 Respiratory dyspnea Respirator Resolve 2016-10-17 Chelsea present y d 2- 12:30:00 Son 13:13: [id number] 00 Respiratory oxygen Respirator Resolve 2016-10-17 Chelsea treatments y d 2- 12:30:00 Son in home 13:13: [id number] 00 Respiratory knowledge/s Respirator Resolve 2015-09-16 Chelsea kill y d 2- 12:00:00 Son deficit: pt 13:13: [id number] 00 Respiratory lung sounds Respirator Resolve 2016-06-29 Chelsea deficit y d 2 13:03:00 Son 13:13: [id number] 00 Endo/Hugo knowledge/s Endo/Hugo Resolve 2015-09-16 Chelsea kill d 2- 12:00:00 Son deficit: pt 13:13: [id number] 00 Endo/Hugo diabetic Endo/Hugo Resolve 2016-06-29 Chelsea foot care d 2- 13:03:00 Son 13:13: [id number] 00 Nutrition knowledge/s Nutrition Resolve 2015-09-04 Chelsea kill d 2 13:13:00 Son deficit: pt 13:13: [id number] 00 Neuro anxiety Neuro/Emot Resolve 2016-08-02 Chelsea present ion d 2- 10:30:00 Son 13:13: [id number] 00 Neuro depressive Neuro/Emot Resolve 2016-08-02 Chelsea feelings ion d 2- 10:30:00 Son present 13:13: [id number] 00 Neuro knowledge/s Neuro/Emot Resolve 2015-09-16 Chelsea kill ion d 2- 12:00:00 Son deficit: pt 13:13: [id number] 00 Activity ADL Activity Resolve 2016-04-27 Chelsea assistance d 2- 11:15:00 Son required 13:13: [id number] 00 Activity knowledge/s Activity Resolve 2016-03-01 Chelsea kill d 2- 12:00:00 Son deficit: pt 13:13: [id number] 00 Safety fall risk Safety Resolve 2015-09-16 Chelsea factor d 2-05 12:00:00 Cline present 13:13: [id number] 00 Safety risk for Safety Resolve 2015-09-16 Chelsea hospitaliza d 2-05 12:00:00 Cline tion 13:13: [id number] 00 Medication oral med Meds Resolve 2016-08-02 Chelsea assistance d 2-05 10:30:00 Cline required 13:13: [id number] 00 Medication injectable Meds Resolve 2016-08-02 Chelsea med d 2-05 10:30:00 Cline assistance 13:13: [id number] required 00 Medication knowledge/s Meds Resolve 2016-06-29 Chelsea kill d 2-05 13:03:00 Son deficit: pt 13:13: [id number] 00 Medication potential Meds Resolve 2016-08-02 Chelsea clinically d 2- 10:30:00 Son significant 13:13: [id number] medication 00 issue Diagnoses knowledge/s Diagnoses Active Chelsea kill - Cline deficit: pt 13:13: [id number] 00 Pain knowledge/s Pain Mgmt Resolve 2015-09-16 Cherrise kill d 2- 12:00:00 Abbe deficit: pt 12:00: [id number] 00 Safety sanitation Safety Resolve 2016-03-01 Cherrise hazards d 2-17 12:00:00 Abbe present 12:00: [id number] 00 Safety risk for Safety Resolve 2016-03-01 Cherrise hospitaliza d 2-18 12:00:00 [place] tion 12:15: [id number] 00 Neuro knowledge/s Neuro/Emot Resolve 2016-08-16 Cherrise kill ion d 2- 12:45:00 [place] deficit: pt 13:29: [id number] Safety structural Safety Resolve 2016-03-01 Cherrise barriers d 2- 12:00:00 Abbe present 13:29: [id number] 57 Respiratory knowledge/s Respirator Resolve 2016-04-27 Chelsea kill y d 10-27 11:15:00 Son deficit: cg 09:40: [id number] 00 Pain frequent Pain Mgmt Resolve 2018-08-28 Chelsea pain d 11-03 12:45:00 Son 13:04: [id number] 00 Pain knowledge/s Pain Mgmt Resolve 2016-02-24 Chelsea kill d 11-03 13:35:00 Son deficit: pt 13:04: [id number] 00 Respiratory knowledge/s Respirator Resolve 2016-04-27 Chelsea kill y d 11-03 11:15:00 Son deficit: pt 13:04: [id number] 00 Safety fall risk Safety Resolve 2016-03-01 Chelsea factor d 11-03 12:00:00 Son present 13:04: [id number] 00 Endo/Hugo insulin Endo/Hugo Resolve 2016-10-17 Chelsea admn d 11-24 12:30:00 Son dependence 10:48: [id number] 00 Safety safety Safety Resolve 2016-03-01 Chelsea hazards d 12-22 12:00:00 Cline present 09:15: [id number] 00 Elimination constipatio Eliminatio Resolve 2016-03-01 Chelsea n n d 12-29 12:00:00 Son 13:33: [id number] 00 IV IV present IV Resolve 2016-01-26 Chelsea d 12-29 11:50:00 Son 13:33: [id number] 00 Integument skin Integument Resolve 2016-04-27 Anna integrity d 01-25 11:15:00 Regeczi risk 11:50: [id number] 00 Nutrition knowledge/s Nutrition Resolve 2016-03-01 Cherrise kill d 02-26 12:00:00 [place] deficit: pt 10:00: [id number] 00 Pain frequent Pain Mgmt Resolve 2018-08-28 Chelsea pain d 03-01 12:45:00 Son 12:00: [id number] 00 Nutrition knowledge/s Nutrition Resolve 2016-04-06 Neida kill d 03-23 14:54:00 [place] deficit: pt 13:30: RN 00 Endo/Hugo insulin Endo/Uhgo Resolve 2016-10-17 Chelsea admn d 04-06 12:30:00 Cline dependence 14:54: [id number] 00 Nutrition changing Nutrition Resolve 2016-05-10 Chelsea weight/appe d 04-27 11:45:00 Son tite 11:15: [id number] 00 Nutrition knowledge/s Nutrition Resolve 2016-04-27 Chelsea kill d 04-27 11:15:00 Son deficit: pt 11:15: [id number] 00 Cardio hypertensio Cardiovasc Resolve 2016-09-20 Evi n ular d 08-02 10:00:00 Hai 10:30: [id number] 00 Respiratory lung sounds Respirator Resolve 2016-08-25 Evi deficit y d 08-02 10:30:00 Hai 10:30: [id number] 00 Respiratory CPAP Respirator Resolve 2016-10-17 Evi treatments y d 08-02 12:30:00 Hai in home 10:30: [id number] 00 Respiratory dyspnea Respirator Resolve 2016-10-17 Evi present y d 08-02 12:30:00 Hai 10:30: [id number] 00 Respiratory oxygen Respirator Resolve 2016-10-17 Evi treatments y d 08-02 12:30:00 Hai in home 10:30: [id number] 00 Integument knowledge/s Integument Resolve 2016-08-16 Evi kill d 08-02 12:45:00 Hai deficit: pt 10:30: [id number] 00 Medication knowledge/s Meds Resolve 2016-08-25 Evi kill d 08-02 10:30:00 Hai deficit: pt 10:30: [id number] 00 Neuro anxiety Neuro/Emot Resolve 2016-10-17 Evi present ion d 08-16 12:30:00 Hai 12:45: [id number] 00 Integument knowledge/s Integument Resolve 2016-08-25 Evi kill d 08-25 10:30:00 Hai deficit: pt 10:30: [id number] 00 Nutrition nutritional Nutrition Resolve 2016-08-25 Evi restriction d 08-25 10:30:00 Hai s 10:30: [id number] 00 Neuro knowledge/s Neuro/Emot Resolve 2016-2016-08-25 Evi kill ion d 08-25 10:30:00 Hai deficit: pt 10:30: [id number] 00 Medication oral med Meds Resolve 2016-08-25 Evi assistance d 08-25 10:30:00 Hai required 10:30: [id number] 00 Respiratory oxygen Respirator Unknown Evi treatments y 2-06 Hai in home 14:30: [id number] 00 Integument knowledge/s Integument Resolve 2016-09-05 Evi kill d 09-05 14:30:00 Hai deficit: pt 14:30: [id number] 00 Medication oral med Meds Resolve 2016-10-17 Evi assistance d 09-05 12:30:00 Hai required 14:30: [id number] 00 Medication knowledge/s Meds Resolve 2016-12-05 Evi kill d 09-05 17:00:00 Hai deficit: pt 14:30: [id number] 00 Respiratory lung sounds Respirator Resolve 2016-09-20 Evi deficit y d 2- 10:00:00 Hai 10:00: [id number] 00 Integument knowledge/s Integument Resolve 2016-10-17 Evi kill d 2- 12:30:00 Hai deficit: pt 10:00: [id number] 00 Integument other wound Integument Resolve 2016-10-17 Evi present d 2- 12:30:00 Hai 10:00: [id number] 00 Respiratory lung sounds Respirator Resolve 2018-10-09 Evi deficit y d 3-06 12:40:00 Hai 15:00: [id number] 00 Respiratory CPAP Respirator Unknown Evi treatments y 3-06 Hai in home 15:00: [id number] 00 Respiratory smoker Respirator Resolve 2016-10-17 Evi y d 3-06 12:30:00 Hai 15:00: [id number] 00 Respiratory nebulizer Respirator Unknown Evi treatment y 3-06 Hai in home 15:00: [id number] 00 Respiratory dyspnea Respirator Resolve 2016-11-07 Evi present y d 10-25 12:20:00 Hai 14:15: [id number] 00 Respiratory oxygen Respirator Unknown Evi treatments y 10-25 Hai in home 14:15: [id number] 00 Respiratory smoker Respirator Resolve 2016-11-07 Evi y d 10-25 12:20:00 Hai 14:15: [id number] 00 Integument other wound Integument Resolve 2016-10-25 Evi present d 10-25 14:15:00 Hai 14:15: [id number] 00 Nutrition nutritional Nutrition Resolve 2016-11-07 Evi restriction d 10-25 12:20:00 Hai s 14:15: [id number] 00 Neuro anxiety Neuro/Emot Resolve 2016-11-07 Evi present ion d 10-25 12:20:00 Hai 14:15: [id number] 00 Medication oral med Meds Resolve 2016-12-05 Evi assistance d 10-25 17:00:00 Hai required 14:15: [id number] 00 Medication potential Meds Resolve 2016-12-05 Evi clinically d 11-07 17:00:00 Hai significant 12:20: [id number] medication 00 issue Respiratory dyspnea Respirator Resolve 2016-11-21 Evi present y d 11-14 13:30:00 Hai 14:00: [id number] 00 Respiratory oxygen Respirator Unknown Evi treatments y 11-21 Hai in home 13:30: [id number] 00 Respiratory lung sounds Respirator Resolve 2018-10-09 Evi deficit y d 11-21 12:40:00 Hai 13:30: [id number] 00 Respiratory smoker Respirator Resolve 2016-11-21 Evi y d 11-21 13:30:00 Hai 13:30: [id number] 00 Respiratory nebulizer Respirator Unknown Evi treatment y 11-21 Hai in home 13:30: [id number] 00 Neuro anxiety Neuro/Emot Resolve 2016-12-25 Evi present ion d 11-21 13:30:00 Hai 13:30: [id number] 00 Respiratory oxygen Respirator Resolve 2018-09-18 Evi treatments y d 12-05 13:30:00 Hai in home 17:00: [id number] 00 Respiratory smoker Respirator Resolve 2016-12-05 Evi y d 12-05 17:00:00 Hai 17:00: [id number] 00 Respiratory nebulizer Respirator Resolve 2018-09-18 Evi treatment y d 12-05 13:30:00 Hai in home 17:00: [id number] 00 Endo/Hugo knowledge/s Endo/Hugo Resolve 2016-12-19 Evi kill d 12-05 13:00:00 Hai deficit: pt 17:00: [id number] 00 Medication knowledge/s Meds Resolve 2016-12-25 Evi kill d 12-19 13:30:00 Hai deficit: pt 13:00: [id number] 00 Respiratory dyspnea Respirator Resolve 2017-02-27 Evi present y d 12-25 12:30:00 Hai 13:30: [id number] 00 Integument other wound Integument Resolve 2017-01-02 Evi present d 12-25 11:50:00 Hai 13:30: [id number] 00 Medication knowledge/s Meds Resolve 2016-12-25 Evi kill d 12-25 13:30:00 Hai deficit: pt 13:30: [id number] 00 Respiratory smoker Respirator Resolve 2017-01-16 Evi y d 01-16 15:00:00 Hai 15:00: [id number] 00 Respiratory lung sounds Respirator Resolve 2017-02-13 Evi deficit y d 02-13 12:45:00 Hai 12:45: [id number] 00 Respiratory smoker Respirator Resolve 2017-02-13 Evi y d 02-13 12:45:00 Hai 12:45: [id number] 00 Respiratory smoker Respirator Resolve 2017-02-27 Evi y d 02-24 12:30:00 Hai 13:00: [id number] 00 Integument other wound Integument Resolve 2017-02-24 Evi present d 02-24 13:00:00 Hai 13:00: [id number] 00 Nutrition nutritional Nutrition Resolve 2017-04-03 Tammee restriction d - 12:25:00 Eric garcia 13:00: an 00 Integument other wound Integument Resolve 2017-05-01 Evi present d 04-25 12:15:00 Hai 13:00: [id number] 00 Neuro depressive Neuro/Emot Resolve 2017-05-01 Evi feelings ion d 04-25 12:15:00 Hai present 13:00: [id number] 00 Neuro anxiety Neuro/Emot Resolve 2017-05-01 Evi present ion d 04-25 12:15:00 Hai 13:00: [id number] 00 Respiratory lung sounds Respirator Resolve 2016-072017-05-01 Evi deficit y d 0- 12:15:00 Hai 12:15: [id number] 00 Respiratory smoker Respirator Resolve 2016-072017-06-12 Evi y d 1- 11:14:00 Hai 11:14: [id number] 00 Respiratory smoker Respirator Resolve 2016-072017-06-21 Evi y d 08-21 11:15:00 Hai 11:15: [id number] 00 Integument other wound Integument Resolve 2016-072017-06-21 Evi present d 08-21 11:15:00 Hai 11:15: [id number] 00 Respiratory lung sounds Respirator Resolve 2016-072017-06-26 Evi deficit y d 08-26 12:15:00 Hai 12:15: [id number] 00 Respiratory lung sounds Respirator Unknown 2016-07 Evi deficit y 2-11 Hai 12:20: [id number] 00 Respiratory smoker Respirator Resolve 2016-072017-08-03 Evi y d 2-28 11:30:00 Hai 12:10: [id number] 00 Respiratory lung sounds Respirator Resolve 2017-08-03 Vei deficit y d 1- 11:30:00 Hai 11:30: [id number] 00 Respiratory lung sounds Respirator Resolve 2017-08-07 Evi deficit y d 1- 10:20:00 Hai 10:20: [id number] 00 Respiratory smoker Respirator Resolve 2017-08-07 Evi y d 1-08 10:20:00 Hai 10:20: [id number] 00 Respiratory lung sounds Respirator Resolve 2017-2017-08-14 Evi deficit y d 1-15 11:30:00 Hai 11:30: [id number] 00 Respiratory smoker Respirator Resolve 2017-2017-08-14 Evi y d 1-15 11:30:00 Hai 11:30: [id number] 00 Integument other wound Integument Resolve 2017-2017-08-21 Evi present d 1- 10:50:00 Hai 10:50: [id number] 00 Respiratory smoker Respirator Resolve 2017-2017-09-04 Evi y d 1- 12:40:00 Hai 12:30: [id number] 00 Respiratory lung sounds Respirator Resolve 2017-09-11 Evi deficit y d 2-12 13:00:00 Hai 13:00: [id number] 00 Respiratory lung sounds Respirator Resolve 2017-09-20 Evi deficit y d 2-21 11:15:00 Hai 11:15: [id number] 00 Respiratory lung sounds Respirator Resolve 2017-2017-09-27 Evi deficit y d 2-28 11:45:00 Hia 11:45: [id number] 00 Respiratory lung sounds Respirator Resolve 2017-10-18 Evi deficit y d 3-21 11:00:00 Hai 11:00: [id number] 00 Respiratory smoker Respirator Resolve 2017-10-18 Evi y d 3-21 11:00:00 Hai 11:00: [id number] 00 Integument other wound Integument Resolve 2017-10-25 Evi present d 3-21 11:00:00 Hai 11:00: [id number] 00 Respiratory lung sounds Respirator Resolve 2018-10-09 Evi deficit y d 4-10 12:40:00 Hai 14:45: [id number] 00 Respiratory smoker Respirator Resolve 2017-2017-11-15 Evi y d 4-18 11:00:00 Hai 11:00: [id number] 00 Respiratory lung sounds Respirator Resolve 2017-2018-10-09 Evi deficit y d 4-25 12:40:00 Hai 13:40: [id number] 00 Respiratory smoker Respirator Resolve 2017-11-22 Evi y d 11-22 13:40:00 Hai 13:40: [id number] 00 Respiratory smoker Respirator Resolve 2017-12-06 Evi y d 12-06 13:15:00 Hai 13:15: [id number] 00 Respiratory lung sounds Respirator Resolve 2017-12-13 Evi deficit y d 5 13:00:00 Hai 13:00: [id number] 00 Respiratory lung sounds Respirator Resolve 2017-12-26 Evi deficit y d 12-20 12:05:00 Hai 13:15: [id number] 00 Integument other wound Integument Resolve 2017-12-26 Evi present d 12-20 12:05:00 Hai 13:15: [id number] 00 Respiratory lung sounds Respirator Resolve 2018-01-03 Evi deficit y d 606 12:38:00 Hai 12:38: [id number] 00 Respiratory lung sounds Respirator Resolve 2018-10-09 Evi deficit y d 6-13 12:40:00 Hai 15:00: [id number] 00 Respiratory smoker Respirator Resolve 2018-01-10 Evi y d 6-13 15:00:00 Hai 15:00: [id number] 00 Respiratory lung sounds Respirator Resolve 2018-01-24 Evi deficit y d 6- 13:10:00 Hai 13:10: [id number] 00 Nutrition nutritional Nutrition Active Evi restriction 01-24 Hai s 13:10: [id number] 00 Safety sanitation Safety Resolve 2018-06-05 Evi hazards d 01-24 10:35:00 Hai present 13:10: [id number] 00 Safety fall risk Safety Resolve 2018-02-19 Evi factor d 01-24 14:02:00 Hai present 13:10: [id number] 00 Safety risk for Safety Resolve 2018-10-30 Evi hospitaliza d 01-24 13:06:00 Hai tion 13:10: [id number] 00 Safety structural Safety Resolve 2018-02-19 Evi barriers d 01-24 14:02:00 Hai present 13:10: [id number] 00 Safety safety Safety Resolve 2018-02-19 Evi hazards d 01-24 14:02:00 Hai present 13:10: [id number] 00 Medication oral med Meds Active Evi assistance 01-24 Hai required 13:10: [id number] 00 Medication injectable Meds Active Evi med 01-24 Hai assistance 13:10: [id number] required 00 Respiratory lung sounds Respirator Resolve 2018-10-09 Evi deficit y d 01-29 12:40:00 Hai 13:45: [id number] 00 Respiratory smoker Respirator Resolve 2018-02-07 Evi y d 01-29 13:00:00 Hai 13:45: [id number] 00 Respiratory smoker Respirator Resolve 2018-03-01 Evi y d 02-19 11:42:00 Hai 14:02: [id number] 00 Integument other wound Integument Resolve 2018-03-21 Evi present d 02-19 15:30:00 Hai 14:02: [id number] 00 Respiratory smoker Respirator Resolve 2018-03-28 Evi y d 03-28 11:36:00 Hai 11:36: [id number] 00 Respiratory smoker Respirator Resolve 2018-04-03 Evi y d 04-03 14:00:00 Hai 14:00: [id number] 00 Respiratory smoker Respirator Resolve 2018-04-10 Evi y d 04-10 14:40:00 Hai 14:40: [id number] 00 Integument other wound Integument Resolve 2018-04-24 Evi present d 04-18 10:16:00 Hai 11:00: [id number] 00 Respiratory smoker Respirator Resolve 2017-072018-05-16 Evi y d 0 14:20:00 Hai 10:50: [id number] 00 Respiratory smoker Respirator Resolve 2017-072018-05-29 Evi y d 0 11:30:00 Hai 11:30: [id number] 00 Respiratory smoker Respirator Resolve 2017-072018-06-05 Evi y d 08-05 10:35:00 Hai 10:35: [id number] 00 Safety safety Safety Resolve 2017-072018-06-05 Evi hazards d 08-05 10:35:00 Hai present 10:35: [id number] 00 Integument other wound Integument Resolve 2017-072018-06-26 Evi present d 08-19 15:15:00 Hai 11:12: [id number] 00 Respiratory smoker Respirator Resolve 2017-072018-06-26 Evi y d 08-26 15:15:00 Hai 15:15: [id number] 00 Respiratory smoker Respirator Resolve 2017-072018-07-03 Evi y d 09-03 11:13:00 Hai 11:13: [id number] 00 Respiratory smoker Respirator Resolve 2017-072018-07-17 Evi y d 09-10 11:38:00 Hai 11:20: [id number] 00 Respiratory smoker Respirator Resolve 2017-072018-07-23 Evi y d 09-23 10:00:00 Hai 10:00: [id number] 00 Integument other wound Integument Resolve 2018-08-14 Evi present d 08-14 15:44:00 Hai 15:44: [id number] 00 Pain frequent Pain Mgmt Resolve 2018-08-28 Evi pain d 08-25 12:45:00 Hai 09:33: [id number] 56 Pain severe pain Pain Mgmt Resolve 2018-08-28 Evi d 08-25 12:45:00 Hai 09:33: [id number] 56 Integument other wound Integument Resolve 2018-08-28 Evi present d 08-25 12:45:00 Hai 09:33: [id number] 56 Respiratory smoker Respirator Resolve 2018-08-28 Evi y d 08-28 12:45:00 Hai 12:45: [id number] 00 Respiratory smoker Respirator Resolve 2018-09-04 Evi y d 09-04 11:30:00 Hia 11:30: [id number] 00 Respiratory smoker Respirator Resolve 2018-2018-09-18 Evi y d 09-10 13:30:00 Hai 16:40: [id number] 00 Pain severe pain Pain Mgmt Resolve 2018-09-25 Evi d 2- 10:30:00 Hai 13:30: [id number] 00 Neuro anxiety Neuro/Emot Unknown Evi present ion 09-18 Hai 13:30: [id number] 00 Respiratory oxygen Respirator Resolve 2018-2018-10-16 Evi treatments y d 3- 11:45:00 Hai in home 10:45: [id number] 00 Respiratory smoker Respirator Resolve 2018-10-09 Evi y d 3- 12:40:00 Hai 10:45: [id number] 00 Respiratory nebulizer Respirator Resolve 2018-10-16 Evi treatment y d 10-02 11:45:00 Hai in home 10:45: [id number] 00 Respiratory lung sounds Respirator Resolve 2018-10-16 Evi deficit y d 10-16 11:45:00 Hai 11:45: [id number] 00 Respiratory smoker Respirator Resolve 2018-10-16 Evi y d 10-16 11:45:00 Hai 11:45: [id number] 00 Integument other wound Integument Resolve 2018-10-23 Evi present d 10-16 11:20:00 Hai 11:45: [id number] 00 Respiratory nebulizer Respirator Resolve 2018-10-23 Evi treatment y d 10-23 11:20:00 Hai in home 11:20: [id number] 00 Safety safety Safety Resolve 2018-10-23 Evi hazards d 10-23 11:20:00 Hai present 11:20: [id number] 00 Respiratory lung sounds Respirator Unknown Evi deficit y 10-30 Hai 13:06: [id number] 00 Respiratory oxygen Respirator Resolve 2018-11-20 Evi treatments y d 11-06 10:35:00 Hai in home 11:31: [id number] 00 Respiratory smoker Respirator Resolve 2018-11-06 Evi y d 11-06 11:31:00 Hai 11:31: [id number] 00 Respiratory nebulizer Respirator Resolve 2018-11-20 Evi treatment y d 11-06 10:35:00 Hai in home 11:31: [id number] 00 Safety risk for Safety Resolve 2018-11-12 Evi hospitaliza d 11-06 10:00:00 Hai tion 11:31: [id number] 00 Respiratory smoker Respirator Resolve 2018-11-20 Evi y d 11-12 10:35:00 Hai 10:00: [id number] 00 Respiratory lung sounds Respirator Resolve 2018-11-20 Evi deficit y d 11-20 10:35:00 Hai 10:35: [id number] 00 Safety risk for Safety Resolve 2018-11-27 Evi hospitaliza d 11-20 11:00:00 Hai tion 10:35: [id number] 00 Pain severe pain Pain Mgmt Resolve 2018-12-04 Evi d 11-27 11:35:00 Hai 11:00: [id number] 00 Respiratory oxygen Respirator Resolve 2018-12-12 Evi treatments y d 11-27 09:08:00 Hai in home 11:00: [id number] 00 Respiratory lung sounds Respirator Resolve 2018-12-04 Evi deficit y d 11-27 11:35:00 Hai 11:00: [id number] 00 Respiratory nebulizer Respirator Resolve 2018-12-12 Evi treatment y d 11-27 09:08:00 Hai in home 11:00: [id number] 00 Respiratory smoker Respirator Resolve 2018-12-04 Evi y d 12-04 11:35:00 Hai 11:35: [id number] 00 Safety risk for Safety Resolve 2018-12-12 Evi hospitaliza d 12-04 09:08:00 Hai tion 11:35: [id number] 00 Cardio hypertensio Cardiovasc Resolve 2018-12-18 Evi n ular d 12-12 14:00:00 Hai 09:08: [id number] 00 Respiratory lung sounds Respirator Resolve 2018-12-12 Evi deficit y d 12-12 09:08:00 Hai 09:08: [id number] 00 Respiratory smoker Respirator Resolve 2018-12-12 Evi y d 12-12 09:08:00 Hai 09:08: [id number] 00 Integument other wound Integument Resolve 2018-12-18 Evi present d 5-15 14:00:00 Hai 09:08: [id number] 00 Safety risk for Safety Resolve 2018-2019-01-01 Evi hospitaliza d 12-18 13:20:00 Hai tion 14:00: [id number] 00 Cardio hypertensio Cardiovasc Resolve 2018-2019-01-01 Evi n ular d 12-25 13:20:00 Hai 10:30: [id number] 00 Respiratory oxygen Respirator Resolve 2018-2019-01-08 Evi treatments y d 5- 11:00:00 Hai in home 10:30: [id number] 00 Respiratory lung sounds Respirator Resolve 2019-01-01 Evi deficit y d 12-25 13:20:00 Hai 10:30: [id number] 00 Respiratory nebulizer Respirator Resolve 2019-01-08 Evi treatment y d 12-25 11:00:00 Hai in home 10:30: [id number] 00 Cardio hypertensio Cardiovasc Resolve 2019-01-15 Evi n ular d 6- 12:05:00 Hai 11:00: [id number] 00 Respiratory smoker Respirator Resolve 2018-2019-01-08 Evi y d 6- 11:00:00 Hai 11:00: [id number] 00 Respiratory lung sounds Respirator Resolve 2018-2019-01-08 Evi deficit y d 6-11 11:00:00 Hai 11:00: [id number] 00 Safety risk for Safety Resolve 2019-01-15 Evi hospitaliza d 6- 12:05:00 Hai tion 11:00: [id number] 00 Respiratory lung sounds Respirator Unknown Evi deficit y 01-15 Hai 12:05: [id number] 00 Respiratory nebulizer Respirator Resolve 2019-01-22 Evi treatment y d 6-18 11:45:00 Hai in home 12:05: [id number] 00 Respiratory oxygen Respirator Resolve 2019-01-22 Evi treatments y d 01-22 11:45:00 Hai in home 11:45: [id number] 00 Respiratory smoker Respirator Resolve 2019-01-22 Evi y d 6 11:45:00 Hai 11:45: [id number] 00 Respiratory lung sounds Respirator Resolve 2018-2019-02-05 Evi deficit y d 01-29 11:30:00 Hai 11:40: [id number] 00 Respiratory smoker Respirator Resolve 2019-02-05 Evi y d 01-29 11:30:00 Hai 11:40: [id number] 00 Respiratory nebulizer Respirator Resolve 2019-02-05 Evi treatment y d 01-29 11:30:00 Hai in home 11:40: [id number] 00 Pain severe pain Pain Mgmt Resolve 2019-02-12 Evi d 02-08 13:30:00 Hai 16:30: [id number] 00 Respiratory oxygen Respirator Resolve 2019-02-19 Evi treatments y d 02-12 14:00:00 Hai in home 13:30: [id number] 00 Respiratory nebulizer Respirator Resolve 2019-02-19 Evi treatment y d 02-12 14:00:00 Hai in home 13:30: [id number] 00 Integument other wound Integument Resolve 2019-02-12 Evi present d 02-12 13:30:00 Hai 13:30: [id number] 00 Safety fall risk Safety Resolve 2019-02-12 Evi factor d 02-12 13:30:00 Hai present 13:30: [id number] 00 Safety risk for Safety Resolve 2019-07-02 Evi hospitaliza d 02-12 11:45:00 Hai tion 13:30: [id number] 00 Respiratory smoker Respirator Resolve 2019-02-19 Evi y d 02-19 14:00:00 Hai 14:00: [id number] 00 Integument knowledge/s Integument Resolve 2019-02-27 Evi kill d 02-19 11:00:00 Hai deficit: pt 14:00: [id number] 00 Respiratory nebulizer Respirator Unknown Evi treatment y 02-27 Hai in home 11:00: [id number] 00 Respiratory smoker Respirator Resolve 2019-03-05 Evi y d 03-05 13:00:00 Hai 13:00: [id number] 00 Respiratory lung sounds Respirator Resolve 2019-04-09 Evi deficit y d 03-05 14:30:00 Hai 13:00: [id number] 00 Endo/Hugo glucose Endo/Hugo Resolve 2019-03-19 Evi tolerance d 03-05 13:30:00 Hai problem 13:00: [id number] 00 Endo/Hugo knowledge/s Endo/Hugo Resolve 2019-03-19 Evi kill d 03-05 13:30:00 Hai deficit 13:00: [id number] hypo/hyperg 00 lycemia: pt Integument other wound Integument Resolve 2019-03-05 Evi present d 03-05 13:00:00 Hai 13:00: [id number] 00 Respiratory oxygen Respirator Resolve 2019-03-26 Evi treatments y d 8-13 16:55:00 Hai in home 13:00: [id number] 00 Respiratory nebulizer Respirator Resolve 2019-03-26 Evi treatment y d 8 16:55:00 Hai in home 13:00: [id number] 00 Respiratory oxygen Respirator Resolve 2019-04-09 Evi treatments y d 04-02 14:30:00 Hai in home 12:15: [id number] 00 Respiratory nebulizer Respirator Resolve 2019-04-09 Evi treatment y d 04-02 14:30:00 Hai in home 12:15: [id number] 00 Endo/Hugo knowledge/s Endo/Hugo Resolve 2019-06-25 Evi kill d 04-02 12:00:00 Hai deficit: pt 12:15: [id number] 00 Endo/Hugo knowledge/s Endo/Hugo Resolve 2019-06-25 Evi kill d 04-02 12:00:00 Hai deficit 12:15: [id number] hypo/hyperg 00 lycemia: pt Respiratory smoker Respirator Resolve 2019-04-09 Vei y d 04-09 14:30:00 Hai 14:30: [id number] 00 Endo/Hugo glucose Endo/Hugo Resolve 2019-04-09 Evi tolerance d 9-10 14:30:00 Hai problem 14:30: [id number] 00 Respiratory oxygen Respirator Resolve 2019-04-23 Evi treatments y d 9-16 14:15:00 Hai in home 14:00: [id number] 00 Respiratory smoker Respirator Resolve 2019-04-23 Evi y d 9-16 14:15:00 Hai 14:00: [id number] 00 Respiratory nebulizer Respirator Resolve 2019-04-23 Evi treatment y d 9-16 14:15:00 Hai in home 14:00: [id number] 00 Endo/Hugo anti-coagul Endo/Hugo Resolve 2019-04-23 Evi ation d 9-16 14:15:00 Hai therapy 14:00: [id number] 00 Endo/Hugo glucose Endo/Hugo Resolve 2019-04-23 Evi tolerance d 9-24 14:15:00 Hai problem 14:15: [id number] 00 Respiratory lung sounds Respirator Resolve 2018-072019-05-07 Evi deficit y d 0-01 15:20:00 Hai 11:06: [id number] 00 Respiratory smoker Respirator Resolve 2018-072019-05-07 Evi y d 0-01 15:20:00 Hai 11:06: [id number] 00 Respiratory oxygen Respirator Resolve 2018-072019-05-15 Evi treatments y d 0-08 10:00:00 Hai in home 15:20: [id number] 00 Respiratory nebulizer Respirator Resolve 2018-072019-05-15 Evi treatment y d 0-08 10:00:00 Hai in home 15:20: [id number] 00 Respiratory lung sounds Respirator Resolve 2018-072019-05-15 Evi deficit y d 0-16 10:00:00 Hai 10:00: [id number] 00 Respiratory lung sounds Respirator Resolve 2018-072019-05-28 Evi deficit y d 0-23 13:15:00 Hai 09:30: [id number] 00 Respiratory oxygen Respirator Active 2018-07 Evi treatments y 0-29 Hai in home 13:15: [id number] 00 Respiratory nebulizer Respirator Active 2018-07 Evi treatment y 0-29 Hai in home 13:15: [id number] 00 Respiratory smoker Respirator Resolve 2018-072019-05-28 Evi y d 0-29 13:15:00 Hai 13:15: [id number] 00 Respiratory lung sounds Respirator Resolve 2018-072019-06-04 Evi deficit y d 1-05 12:00:00 Hai 12:00: [id number] 00 Respiratory lung sounds Respirator Resolve 2018-072019-06-25 Evi deficit y d 1-11 12:00:00 Hai 11:00: [id number] 00 Respiratory smoker Respirator Resolve 2018-072019-06-18 Evi y d 1-11 12:45:00 Hai 11:00: [id number] 00 Integument other wound Integument Resolve 2018-072019-06-18 Evi present d 1-11 12:45:00 Hai 11:00: [id number] 00 Safety fall risk Safety Resolve 2018-072019-06-25 Evi factor d 1-11 12:00:00 Hai present 11:00: [id number] 00 Respiratory smoker Respirator Resolve 2018-072019-06-25 Evi y d 1- 12:00:00 Hai 12:00: [id number] 00 Neuro anxiety Neuro/Emot Active 2018-07 Evi present ion 1-26 Hai 12:00: [id number] 00 Neuro memory Neuro/Emot Active 2018-07 Evi deficit ion 1-26 Hai needing 12:00: [id number] 00 Respiratory smoker Respirator Active 2018-07 Evi y 2-03 Hai 11:45: [id number] 00 Respiratory lung sounds Respirator Active 2018-07 Evi deficit y 2-11 Hai 13:05: [id number] 00 Safety risk for Safety Resolve 2018-072019-07-10 Evi hospitaliza d 2-11 13:05:00 Hai tion 13:05: [id number] 00 Safety risk for Safety Active 2018-07 Evi hospitaliza - Hai tion 15:00: [id number] 00 Allergies, Adverse Reactions, Alerts Allergy Allergy [...] liter Unknown permeable permeable 09-04 ,Leroy lens core cleaner strip cleaner liquid liquid FLUoxetine FLUoxetine No Darlow [...]
[2019-09-17 06:00] LABS: ABS Lymphocytes 1.1 10^3/ul (1.0-4.8); ABS Monocytes 0.2 10^3/ul (0-0.8); ABS Neutrophils 2.9 10^3/ul (1.5-7.7); Eosinophil % 0.1 %; Hematocrit 28 % (42-52); Hemoglobin 9.8 g/dL (14.0-18.0); Lymphocyte % 26.6 %; Mean Corpuscular HGB Conc 35 g/dL (31-36); Mean Corpuscular Hemoglobin 32 pg (27-31); Mean Corpuscular Volume 92 fL (80-94); Mean Platelet Volume 8.2 fL (7.4-10.4); Platelet Count 169 10^3/uL (150-450); Red Blood Count 3.05 10^6 /uL (4.18-5.48); Red Cell Distribution Width 15 % (10-15); White Blood Count 4.2 10^3/uL (3.5-10.8)
[2019-09-17 06:09] LABS: INR 0.83 (0.82-1.09)
[2019-09-17 06:15] LABS: Albumin 4.1 g/dL (3.2-5.2); Anion Gap 8 mmol/L (2-11); CO2 Carbon Dioxide 25 mmol/L (22-32); Calcium 8.4 mg/dL (8.6-10.3); Chloride 99 mmol/L (101-111); Sodium 132 mmol/L (135-145)
[2019-09-17 06:21] LABS: ALT 9 U/L (7-52); AST 19 U/L (13-39); Albumin/Globulin Ratio 1.6 (1-3); Alkaline Phosphatase 118 U/L (34-104); BUN/Creatinine Ratio 23.3 (8-20); Blood Urea Nitrogen 30 mg/dL (6-24); EGFR African American 69.2 (>60); EGFR Non-African American 57.2 (>60); Globulin 2.6 g/dL (2-4); Glucose 304 mg/dL (70-100); Total Protein 6.7 g/dL (6.4-8.9)
[2019-09-17 06:22] VITALS: BP 116/61
[2019-09-17 06:36] LABS: Acetaminophen < 15 mcg/mL; Salicylate < 2.50 mg/dL (<30)
== END 2019-09-17 06:54 | disposition home or self-care (01) ==
LOC: ED 04:05
DX: M54.9 Dorsalgia, unspecified (principal); C34.12 Malignant neoplasm of upper lobe, left bronchus or lung; E11.40 Type 2 diabetes mellitus with diabetic neuropathy, unspecified; I10 Essential (primary) hypertension; E78.5 Hyperlipidemia, unspecified; J45.909 Unspecified asthma, uncomplicated; K21.9 Gastro-esophageal reflux disease without esophagitis; F41.9 Anxiety disorder, unspecified; F31.9 Bipolar disorder, unspecified; F17.210 Nicotine dependence, cigarettes, uncomplicated; Z99.81 Dependence on supplemental oxygen; Z79.4 Long term (current) use of insulin; Z79.899 Other long term (current) drug therapy; Z88.6 Allergy status to analgesic agent; Z88.4 Allergy status to anesthetic agent; Z88.8 Allergy status to other drugs, medicaments and biological substances
CPT/HCPCS: 36415; 72125; 72128; 72131; 80053; 80329; 85025; 85610; 96374; 96376; 99284; G0480; J1170

== ENCOUNTER 2021-09-23 12:23 | Observation (INO) ==
[2021-09-23 13:20] LABS: ABS Lymphocytes 0.8 10^3/ul (1.0-4.8); ABS Monocytes 0.6 10^3/ul (0-0.8); ABS Neutrophils 4.2 10^3/ul (1.5-7.7); Eosinophil % 0.5 %; Hematocrit 39 % (42-52); Hemoglobin 12.9 g/dL (14.0-18.0); Lymphocyte % 14.2 %; Mean Corpuscular HGB Conc 33 g/dL (31-36); Mean Corpuscular Hemoglobin 29 pg (27-31); Mean Corpuscular Volume 86 fL (80-94); Mean Platelet Volume 7.5 fL (7.4-10.4); Platelet Count 193 10^3/uL (150-450); Red Blood Count 4.47 10^6 /uL (4.18-5.48); Red Cell Distribution Width 19 % (10-15); White Blood Count 5.6 10^3/uL (3.5-10.8)
[2021-09-23 13:41] LABS: ALT 9 U/L (7-52); AST 17 U/L (13-39); Albumin 4.2 g/dL (3.2-5.2); Albumin/Globulin Ratio 1.6 (1-3); Alkaline Phosphatase 137 U/L (35-149); Anion Gap 12 mmol/L (2-11); Blood Urea Nitrogen 29 mg/dL (6-24); CO2 Carbon Dioxide 23 mmol/L (22-32); Chloride 94 mmol/L (101-111); Globulin 2.7 g/dL (2-4); Glucose 296 mg/dL (70-100); Potassium 3.7 mmol/L (3.5-5.0); Sodium 129 mmol/L (135-145); Total Protein 6.9 g/dL (6.4-8.9); Troponin I 0.04 ng/mL (<0.03); eGFR CKD-EPI 46.2 (>60)
[2021-09-23] MEDS ORDERED: Iodixanol (CONTRAST) 320 MG/ML 100 ML SDV IV ONE (13:47)
[2021-09-23] MEDS ORDERED: Dexamethasone IV 10 MG in NS 0.9% 50 ML 50 ML IVPB ONE (14:45)
[2021-09-23 15:27] LABS: Rapid COVID-19 Molecular Undetected (Undetected)
[2021-09-23] MEDS ORDERED: Dextrose 50% Syringe 50 ml 25 GM/50 ML SYRINGE IV PUSH PRN (17:10)
[2021-09-23] MEDS ORDERED: NS 0.9% 1000 ml BAG 1,000 ML IV SCH (17:15)
[2021-09-23] MEDS ORDERED: Albuterol 2.5mg/3 ml (0.083%) NEB.SOLN INH PRN (17:49)
[2021-09-23] MEDS ORDERED: Enoxaparin 40 MG/0.4 ML SYR SUBCUT SCH (18:00)
[2021-09-23] MEDS: Dexamethasone IV 4 MG/ML VIAL 1 ml VIAL IV SLOW PU SCH (18:15)
[2021-09-23] MEDS ORDERED: Gadoteridol (CONTRAST) 279.3 MG/ML 10 ML IV ONE (19:01)
[2021-09-23] MEDS: fentaNYL PATCH 50 MCG/HR 1 PATCH TRANSDERM SCH ×2 (19:55→21:24)
[2021-09-23] MEDS ORDERED: Insulin GLARGINE 100 un/ml 10 ml VIAL SUBCUT SCH (21:00)
[2021-09-23] MEDS: fentaNYL Patch Check Q Shift NOTE FOLLOW UP SCH (21:49)
[2021-09-24] MEDS: Mometasone/Formoter 200/5 MDI INH SCH ×2 (01:03→08:31)
[2021-09-24] MEDS: Dexamethasone IV 4 MG/ML VIAL 1 ml VIAL IV SLOW PU SCH ×2 (01:27→04:37)
[2021-09-24 04:50] LABS: Hematocrit 38 % (42-52); Hemoglobin 12.5 g/dL (14.0-18.0); Mean Corpuscular HGB Conc 34 g/dL (31-36); Mean Corpuscular Hemoglobin 28 pg (27-31); Mean Corpuscular Volume 85 fL (80-94); Mean Platelet Volume 7.2 fL (7.4-10.4); Platelet Count 215 10^3/uL (150-450); Red Blood Count 4.42 10^6 /uL (4.18-5.48); Red Cell Distribution Width 19 % (10-15); White Blood Count 4.5 10^3/uL (3.5-10.8)
[2021-09-24 04:53] LABS: ABS Lymphocytes 0.3 10^3/ul (1.0-4.8); ABS Monocytes 0.1 10^3/ul (0-0.8); Lymphocyte % 7.3 %
[2021-09-24 05:07] LABS: Albumin 4.2 g/dL (3.2-5.2); Albumin/Globulin Ratio 1.6 (1-3); Calcium 8.7 mg/dL (8.6-10.3); Globulin 2.6 g/dL (2-4); Potassium 4.4 mmol/L (3.5-5.0); Total Bilirubin 0.5 mg/dL (0.2-1.0); Total Protein 6.8 g/dL (6.4-8.9); eGFR CKD-EPI 58.5 (>60)
[2021-09-24] MEDS: fentaNYL Patch Check Q Shift NOTE FOLLOW UP SCH (07:09)
[2021-09-24 07:30] VITALS: BP 141/77
[2021-09-24] MEDS ORDERED: SPIRIVA Respimat (tiotropium) 2.5 mcg/inh Inhaler INH SCH (09:00)
[2021-09-24] MEDS ORDERED: NFT: Empaglifozin 10 mg TAB (NF) PO SCH (09:00)
== END 2021-09-24 11:25 | disposition home or self-care (01) | DRG 55 ==
LOC: ED 12:23 → INTOOBSV 17:54 → EDHOLD 17:54 → MED 20:42
PROVIDERS: ADMIT Internal Medicine Medical Oncology; ATTEND Internal Medicine Hematology & Oncology

== ENCOUNTER 2021-10-03 07:26 | Inpatient (IN) ==
[2021-10-03] MEDS ORDERED: NS 0.9% 1000 ml BAG 1,000 ML IV ONE (08:13)
[2021-10-03 08:34] LABS: ABS Lymphocytes 0.4 10^3/ul (1.0-4.8); ABS Monocytes 0.2 10^3/ul (0-0.8); ABS Neutrophils 4.8 10^3/ul (1.5-7.7); Eosinophil % 0.1 %; Hematocrit 34 % (42-52); Hemoglobin 11.4 g/dL (14.0-18.0); Lymphocyte % 6.8 %; Mean Corpuscular HGB Conc 33 g/dL (31-36); Mean Corpuscular Hemoglobin 29 pg (27-31); Mean Corpuscular Volume 86 fL (80-94); Mean Platelet Volume 7.4 fL (7.4-10.4); Platelet Count 182 10^3/uL (150-450); Red Blood Count 4.01 10^6 /uL (4.18-5.48); Red Cell Distribution Width 19 % (10-15); White Blood Count 5.3 10^3/uL (3.5-10.8)
[2021-10-03 08:53] LABS: Troponin I 0.01 ng/mL (<0.03)
[2021-10-03 09:09] LABS: Albumin 3.7 g/dL (3.2-5.2); Anion Gap 8 mmol/L (2-11); Blood Urea Nitrogen 25 mg/dL (6-24); CO2 Carbon Dioxide 26 mmol/L (22-32); Calcium 8.6 mg/dL (8.6-10.3); Chloride 94 mmol/L (101-111); Globulin 2.1 g/dL (2-4); Glucose 319 mg/dL (70-100); Magnesium 1.8 mg/dL (1.9-2.7); Potassium 4.5 mmol/L (3.5-5.0); Sodium 128 mmol/L (135-145); Total Protein 5.8 g/dL (6.4-8.9); eGFR CKD-EPI 75.2 (>60)
[2021-10-03 09:10] LABS: ALT 10 U/L (7-52); AST 29 U/L (13-39); Albumin/Globulin Ratio 1.8 (1-3); Alkaline Phosphatase 125 U/L (35-149); Creatine Kinase 170 U/L (10-223)
[2021-10-03] MEDS ORDERED: Ondansetron 4 mg VIAL 2 MG/ML 2 ml VIAL IV ONE (10:01)
[2021-10-03] MEDS ORDERED: Albuterol HFA INHALER 8 gm MDI INH PRN (10:18)
[2021-10-03] MEDS ORDERED: Dextrose 50% Syringe 50 ml 25 GM/50 ML SYRINGE IV PUSH PRN (10:30)
[2021-10-03] MEDS ORDERED: Nicotine GUM 4MG FRUIT FLAVOR PO PRN (10:31)
[2021-10-03 10:55] LABS: Urine Appearance Clear; Urine Bilirubin Negative (Negative); Urine Blood Negative (Negative); Urine Color Straw; Urine Glucose 3+(>=500 mg/dL) (Negative); Urine Ketones Negative (Negative); Urine Nitrite Negative (Negative); Urine Protein Negative (Negative); Urine Urobilinogen Negative (Negative)
[2021-10-03 12:20] LABS: Vitamin B12 > 1450 pg/mL (180-914)
[2021-10-03] MEDS ORDERED: fentaNYL PATCH 25 MCG/HR 1 PATCH TRANSDERM SCH (16:00)
[2021-10-03] MEDS ORDERED: fentaNYL PATCH 12 MCG/HR 1 PATCH TRANSDERM SCH (16:00)
[2021-10-03] MEDS: Enoxaparin 40 MG/0.4 ML SYR SUBCUT SCH (17:25)
[2021-10-03] MEDS ORDERED: Lidocaine 2% JELLY 6 ML TOPICAL ONE (17:43)
[2021-10-03] MEDS: fentaNYL Patch Check Q Shift NOTE FOLLOW UP SCH (19:25)
[2021-10-03] MEDS: Mometasone/Formoter 200/5 MDI INH SCH (20:05)
[2021-10-03] MEDS ORDERED: Insulin GLARGINE 100 un/ml 10 ml VIAL SUBCUT SCH (21:00)
[2021-10-04 05:04] LABS: ABS Lymphocytes 0.5 10^3/ul (1.0-4.8); ABS Monocytes 0.1 10^3/ul (0-0.8); ABS Neutrophils 4.2 10^3/ul (1.5-7.7); Hematocrit 37 % (42-52); Hemoglobin 11.9 g/dL (14.0-18.0); Lymphocyte % 9.8 %; Mean Corpuscular HGB Conc 33 g/dL (31-36); Mean Corpuscular Hemoglobin 28 pg (27-31); Mean Corpuscular Volume 85 fL (80-94); Mean Platelet Volume 7.1 fL (7.4-10.4); Platelet Count 183 10^3/uL (150-450); Red Blood Count 4.29 10^6 /uL (4.18-5.48); Red Cell Distribution Width 19 % (10-15); White Blood Count 4.8 10^3/uL (3.5-10.8)
[2021-10-04 05:31] LABS: Calcium 8.5 mg/dL (8.6-10.3); Potassium 4.4 mmol/L (3.5-5.0); eGFR CKD-EPI 85.1 (>60)
[2021-10-04] MEDS: fentaNYL Patch Check Q Shift NOTE FOLLOW UP SCH ×2 (07:14→19:43)
[2021-10-04] MEDS: Mometasone/Formoter 200/5 MDI INH SCH ×2 (08:05→19:53)
[2021-10-04] MEDS: SPIRIVA Respimat (tiotropium) 2.5 mcg/inh Inhaler INH SCH (08:11)
[2021-10-04] MEDS: Nicotine PATCH 21 MG/24 HR PATCH TRANSDERM SCH (09:44)
[2021-10-04 12:48] LABS: Osmolality Serum 287 mOsm/kg (275-295)
[2021-10-04 13:05] LABS: Calcium 8.1 mg/dL (8.6-10.3); Potassium 4.7 mmol/L (3.5-5.0); eGFR CKD-EPI 85.1 (>60)
[2021-10-04] MEDS: Enoxaparin 40 MG/0.4 ML SYR SUBCUT SCH (13:15)
[2021-10-04] MEDS: NS 0.9% 1000 ml BAG 1,000 ML IV SCH (13:39)
[2021-10-04] MEDS ORDERED: Insulin GLARGINE 100 un/ml 10 ml VIAL SUBCUT ONE (13:43)
[2021-10-04] MEDS ORDERED: Gadoteridol (CONTRAST) 279.3 MG/ML 10 ML IV ONE (15:39)
[2021-10-04 17:48] LABS: Calcium 8.3 mg/dL (8.6-10.3); Potassium 4.1 mmol/L (3.5-5.0)
[2021-10-04] MEDS ORDERED: Insulin GLARGINE 100 un/ml 10 ml VIAL SUBCUT SCH (21:00)
[2021-10-05] MEDS: NS 0.9% 1000 ml BAG 1,000 ML IV SCH ×2 (00:19→07:28)
[2021-10-05 05:36] LABS: Albumin 3.3 g/dL (3.2-5.2); Albumin/Globulin Ratio 1.7 (1-3); Calcium 8.3 mg/dL (8.6-10.3); Potassium 4.9 mmol/L (3.5-5.0); Total Bilirubin 0.4 mg/dL (0.2-1.0); Total Protein 5.3 g/dL (6.4-8.9); eGFR CKD-EPI 82.2 (>60)
[2021-10-05] MEDS: fentaNYL Patch Check Q Shift NOTE FOLLOW UP SCH (07:28)
[2021-10-05] MEDS ORDERED: NS 0.9% 1000 ml BAG 1,000 ML IV SCH (07:33)
[2021-10-05] MEDS: Nicotine PATCH 21 MG/24 HR PATCH TRANSDERM SCH ×2 (07:57→08:01)
[2021-10-05] MEDS ORDERED: Polyethylene Glycol 3350 17 GM PACKET PO PRN (10:10)
[2021-10-05] MEDS: SPIRIVA Respimat (tiotropium) 2.5 mcg/inh Inhaler INH SCH (10:12)
[2021-10-05] MEDS: Mometasone/Formoter 200/5 MDI INH SCH (10:12)
[2021-10-05 11:14] VITALS: BP 119/61
[2021-10-05] MEDS: Enoxaparin 40 MG/0.4 ML SYR SUBCUT SCH (11:40)
== END 2021-10-05 13:30 | disposition left against medical advice (07) | DRG 181 ==
LOC: EDHOLD 07:26 → ED 07:26 → MED 10:48 → SUATTDRO 10-04 18:51
PROVIDERS: ADMIT Nurse Practitioner; ATTEND Internal Medicine

== ENCOUNTER 2021-10-08 17:57 | Inpatient (IN) ==
[2021-10-08] MEDS ORDERED: NS 0.9% 1000 ml BAG 1,000 ML IV ONE (18:29)
[2021-10-08 19:00] LABS: ABS Lymphocytes 0.5 10^3/ul (1.0-4.8); ABS Monocytes 0.4 10^3/ul (0-0.8); ABS Neutrophils 5.3 10^3/ul (1.5-7.7); Eosinophil % 0.3 %; Hematocrit 45 % (42-52); Hemoglobin 14.7 g/dL (14.0-18.0); Lymphocyte % 8.4 %; Mean Corpuscular HGB Conc 32 g/dL (31-36); Mean Corpuscular Hemoglobin 28 pg (27-31); Mean Corpuscular Volume 87 fL (80-94); Mean Platelet Volume 7.8 fL (7.4-10.4); Platelet Count 207 10^3/uL (150-450); Red Blood Count 5.24 10^6 /uL (4.18-5.48); Red Cell Distribution Width 19 % (10-15); White Blood Count 6.2 10^3/uL (3.5-10.8)
[2021-10-08 19:14] LABS: Urine Appearance Clear; Urine Bilirubin Negative (Negative); Urine Blood 1+ (Negative); Urine Color Straw; Urine Glucose 3+(>=500 mg/dL) (Negative); Urine Ketones Negative (Negative); Urine Nitrite Negative (Negative); Urine Protein Negative (Negative); Urine Specific Gravity 1.007 (1.002-1.030); Urine Urobilinogen Negative (Negative)
[2021-10-08 19:17] LABS: ALT 20 U/L (7-52); AST 40 U/L (13-39); Albumin 4.2 g/dL (3.2-5.2); Albumin/Globulin Ratio 1.6 (1-3); Alcohol, S < 13 mg/dL (<13); Alkaline Phosphatase 141 U/L (35-149); Anion Gap 7 mmol/L (2-11); Blood Urea Nitrogen 18 mg/dL (6-24); CO2 Carbon Dioxide 32 mmol/L (22-32); Calcium 9.2 mg/dL (8.6-10.3); Chloride 104 mmol/L (101-111); Creatine Kinase 63 U/L (10-223); Globulin 2.7 g/dL (2-4); Glucose 79 mg/dL (70-100); Potassium 3.7 mmol/L (3.5-5.0); Sodium 143 mmol/L (135-145); Total Protein 6.9 g/dL (6.4-8.9); eGFR CKD-EPI 97.8 (>60)
[2021-10-08 19:20] LABS: INR 0.92 (0.86-1.15)
[2021-10-08 19:22] LABS: High Sens Troponin Baseline 9 pg/mL (<20)
[2021-10-08 19:24] LABS: Urine Bacteria Absent (Absent); Urine Red Blood Cell 1+(3-5/hpf) (Absent); Urine White Blood Cell Trace(0-5/hpf) (Absent)
[2021-10-08 20:52] LABS: High Sensitivity Troponin 1 Hr 20 pg/mL (<20)
[2021-10-08] MEDS ORDERED: Dextrose 50% Syringe 50 ml 25 GM/50 ML SYRINGE IV PUSH ONE (22:30)
[2021-10-08] MEDS ORDERED: Iodixanol (CONTRAST) 320 MG/ML 100 ML SDV IV ONE (22:41)
[2021-10-08] MEDS ORDERED: Albuterol 2.5mg/3 ml (0.083%) NEB.SOLN INH PRN (22:59)
[2021-10-08] MEDS ORDERED: D10W 1000 ml BAG 1,000 ML IV SCH ×2 (23:00)
[2021-10-08] MEDS ORDERED: Zosyn per Pharmacy NOTE FOLLOW UP SCH (23:45)
[2021-10-08] MEDS ORDERED: Piperacillin/Tazobac ADVAN 3.375 GM in NS 0.9% 100 ml BAG 100 ML IV ONE (23:50)
[2021-10-09 00:27] LABS: Glucose Confirmatory 22 mg/dL (70-100)
[2021-10-09] MEDS ORDERED: Labetalol IV 5 MG/ML 20 ml VIAL IV PUSH PRN (01:09)
[2021-10-09] MEDS: Enoxaparin 40 MG/0.4 ML SYR SUBCUT SCH ×2 (01:39→22:59)
[2021-10-09] MEDS ORDERED: D10W 1000 ml BAG 1,000 ML IV SCH ×2 (02:14→05:05)
[2021-10-09 04:31] LABS: ABS Lymphocytes 0.6 10^3/ul (1.0-4.8); ABS Monocytes 0.4 10^3/ul (0-0.8); ABS Neutrophils 6.2 10^3/ul (1.5-7.7); Eosinophil % 0.7 %; Hematocrit 42 % (42-52); Hemoglobin 13.8 g/dL (14.0-18.0); Lymphocyte % 7.7 %; Mean Corpuscular HGB Conc 33 g/dL (31-36); Mean Corpuscular Hemoglobin 28 pg (27-31); Mean Corpuscular Volume 86 fL (80-94); Mean Platelet Volume 7.7 fL (7.4-10.4); Platelet Count 216 10^3/uL (150-450); Red Blood Count 4.88 10^6 /uL (4.18-5.48); Red Cell Distribution Width 20 % (10-15); White Blood Count 7.2 10^3/uL (3.5-10.8)
[2021-10-09 05:27] LABS: Albumin 3.6 g/dL (3.2-5.2); Albumin/Globulin Ratio 1.6 (1-3); Calcium 8.3 mg/dL (8.6-10.3); Globulin 2.3 g/dL (2-4); Potassium 3.7 mmol/L (3.5-5.0); Total Bilirubin 0.5 mg/dL (0.2-1.0); Total Protein 5.9 g/dL (6.4-8.9); eGFR CKD-EPI 101.3 (>60)
[2021-10-09] MEDS: Mometasone/Formoter 200/5 MDI INH SCH ×2 (07:26→19:42)
[2021-10-09] MEDS: SPIRIVA Respimat (tiotropium) 2.5 mcg/inh Inhaler INH SCH (07:27)
[2021-10-09] MEDS: ZOSYN 3.375 GM Q8H per EXTENDED INFUSION IV SCH ×3 (07:40→22:55)
[2021-10-09] MEDS: Nicotine PATCH 21 MG/24 HR PATCH TRANSDERM SCH (08:20)
[2021-10-09] MEDS: fentaNYL PATCH 25 MCG/HR 1 PATCH TRANSDERM SCH (12:15)
[2021-10-09] MEDS: fentaNYL Patch Check Q Shift NOTE FOLLOW UP SCH (19:38)
[2021-10-10] MEDS: ZOSYN 3.375 GM Q8H per EXTENDED INFUSION IV SCH ×3 (04:54→20:44)
[2021-10-10 05:03] LABS: ABS Lymphocytes 0.4 10^3/ul (1.0-4.8); ABS Monocytes 0.2 10^3/ul (0-0.8); ABS Neutrophils 5.1 10^3/ul (1.5-7.7); Hematocrit 39 % (42-52); Hemoglobin 12.6 g/dL (14.0-18.0); Lymphocyte % 6.5 %; Mean Corpuscular HGB Conc 33 g/dL (31-36); Mean Corpuscular Hemoglobin 29 pg (27-31); Mean Corpuscular Volume 87 fL (80-94); Mean Platelet Volume 7.9 fL (7.4-10.4); Platelet Count 166 10^3/uL (150-450); Red Blood Count 4.41 10^6 /uL (4.18-5.48); Red Cell Distribution Width 19 % (10-15); White Blood Count 5.7 10^3/uL (3.5-10.8)
[2021-10-10 05:21] LABS: Albumin 2.6 g/dL (3.2-5.2); Albumin/Globulin Ratio 1.5 (1-3); Globulin 1.7 g/dL (2-4); Potassium 3.5 mmol/L (3.5-5.0); Total Bilirubin 0.5 mg/dL (0.2-1.0); Total Protein 4.3 g/dL (6.4-8.9); eGFR CKD-EPI 101.5 (>60)
[2021-10-10 05:39] LABS: Calcium 6.1 mg/dL (8.6-10.3)
[2021-10-10] MEDS ORDERED: Calcium Gluconate 2 GM in NS 0.9% 100 ml BAG 100 ML IV ONE (07:15)
[2021-10-10] MEDS: Mometasone/Formoter 200/5 MDI INH SCH ×2 (08:05→20:14)
[2021-10-10] MEDS: SPIRIVA Respimat (tiotropium) 2.5 mcg/inh Inhaler INH SCH (08:06)
[2021-10-10 09:04] LABS: Calcium 8.3 mg/dL (8.6-10.3); eGFR CKD-EPI 65.5 (>60)
[2021-10-10 09:08] LABS: Potassium 5.3 mmol/L (3.5-5.0)
[2021-10-10] MEDS: Nicotine PATCH 21 MG/24 HR PATCH TRANSDERM SCH (09:48)
[2021-10-10] MEDS: Insulin GLARGINE 100 un/ml 10 ml VIAL SUBCUT SCH (12:28)
[2021-10-10] MEDS ORDERED: Dextrose 50% Syringe 50 ml 25 GM/50 ML SYRINGE IV PUSH PRN (17:44)
[2021-10-10] MEDS: fentaNYL Patch Check Q Shift NOTE FOLLOW UP SCH ×2 (19:12→19:56)
[2021-10-10] MEDS: Enoxaparin 40 MG/0.4 ML SYR SUBCUT SCH (19:58)
[2021-10-11] MEDS: ZOSYN 3.375 GM Q8H per EXTENDED INFUSION IV SCH ×3 (04:03→21:31)
[2021-10-11 04:16] LABS: ABS Lymphocytes 0.8 10^3/ul (1.0-4.8); ABS Monocytes 0.3 10^3/ul (0-0.8); ABS Neutrophils 4.7 10^3/ul (1.5-7.7); Hematocrit 42 % (42-52); Hemoglobin 13.6 g/dL (14.0-18.0); Lymphocyte % 14.1 %; Mean Corpuscular HGB Conc 32 g/dL (31-36); Mean Corpuscular Hemoglobin 28 pg (27-31); Mean Corpuscular Volume 87 fL (80-94); Mean Platelet Volume 7.6 fL (7.4-10.4); Platelet Count 222 10^3/uL (150-450); Red Blood Count 4.89 10^6 /uL (4.18-5.48); Red Cell Distribution Width 19 % (10-15); White Blood Count 5.9 10^3/uL (3.5-10.8)
[2021-10-11 04:47] LABS: Calcium 8.8 mg/dL (8.6-10.3); Magnesium 2.1 mg/dL (1.9-2.7); Potassium 4.3 mmol/L (3.5-5.0); eGFR CKD-EPI 66.1 (>60)
[2021-10-11] MEDS: SPIRIVA Respimat (tiotropium) 2.5 mcg/inh Inhaler INH SCH (07:40)
[2021-10-11] MEDS: Mometasone/Formoter 200/5 MDI INH SCH ×2 (07:40→19:23)
[2021-10-11] MEDS: Insulin GLARGINE 100 un/ml 10 ml VIAL SUBCUT SCH (08:21)
[2021-10-11] MEDS: Nicotine PATCH 21 MG/24 HR PATCH TRANSDERM SCH (08:21)
[2021-10-11] MEDS: fentaNYL Patch Check Q Shift NOTE FOLLOW UP SCH ×2 (18:42→18:43)
[2021-10-11] MEDS: Enoxaparin 40 MG/0.4 ML SYR SUBCUT SCH (20:26)
[2021-10-12] MEDS: ZOSYN 3.375 GM Q8H per EXTENDED INFUSION IV SCH ×3 (04:43→21:36)
[2021-10-12] MEDS: fentaNYL Patch Check Q Shift NOTE FOLLOW UP SCH ×2 (06:45→19:11)
[2021-10-12] MEDS: Mometasone/Formoter 200/5 MDI INH SCH ×3 (07:50→19:23)
[2021-10-12] MEDS: SPIRIVA Respimat (tiotropium) 2.5 mcg/inh Inhaler INH SCH (07:51)
[2021-10-12] MEDS: Insulin GLARGINE 100 un/ml 10 ml VIAL SUBCUT SCH (09:07)
[2021-10-12] MEDS: Nicotine PATCH 21 MG/24 HR PATCH TRANSDERM SCH (09:07)
[2021-10-12] MEDS ORDERED: Albuterol HFA INHALER 8 gm MDI INH PRN (10:50)
[2021-10-12] MEDS: fentaNYL PATCH 25 MCG/HR 1 PATCH TRANSDERM SCH (13:03)
[2021-10-12] MEDS: Enoxaparin 40 MG/0.4 ML SYR SUBCUT SCH (21:25)
[2021-10-13] MEDS: ZOSYN 3.375 GM Q8H per EXTENDED INFUSION IV SCH ×2 (04:57→15:10)
[2021-10-13] MEDS: fentaNYL Patch Check Q Shift NOTE FOLLOW UP SCH ×2 (07:06→18:59)
[2021-10-13] MEDS: Mometasone/Formoter 200/5 MDI INH SCH ×2 (07:54→19:08)
[2021-10-13] MEDS: SPIRIVA Respimat (tiotropium) 2.5 mcg/inh Inhaler INH SCH (07:55)
[2021-10-13] MEDS: Insulin GLARGINE 100 un/ml 10 ml VIAL SUBCUT SCH (09:26)
[2021-10-13] MEDS: Nicotine PATCH 21 MG/24 HR PATCH TRANSDERM SCH (09:27)
[2021-10-13] MEDS: Nystatin SUSPENSION 100,000 UNITS/ML UDC PO SCH ×2 (18:18→22:45)
[2021-10-13] MEDS: Morphine 4 MG/ML VIAL (1 ml) IV PRN (22:39)
[2021-10-13] MEDS: Enoxaparin 40 MG/0.4 ML SYR SUBCUT SCH (22:45)
[2021-10-14] MEDS: Mometasone/Formoter 200/5 MDI INH SCH ×2 (07:24→19:26)
[2021-10-14] MEDS: fentaNYL Patch Check Q Shift NOTE FOLLOW UP SCH ×2 (07:24→18:51)
[2021-10-14] MEDS: SPIRIVA Respimat (tiotropium) 2.5 mcg/inh Inhaler INH SCH (07:24)
[2021-10-14] MEDS: Nicotine PATCH 21 MG/24 HR PATCH TRANSDERM SCH (08:58)
[2021-10-14] MEDS: Nystatin SUSPENSION 100,000 UNITS/ML UDC PO SCH ×4 (09:00→21:10)
[2021-10-14] MEDS: Morphine 4 MG/ML VIAL (1 ml) IV PRN ×5 (09:09→21:10)
[2021-10-14] MEDS: Senna TAB 8.6 mg TAB PO SCH ×2 (11:20→21:12)
[2021-10-14] MEDS: Enoxaparin 40 MG/0.4 ML SYR SUBCUT SCH (21:10)
[2021-10-15] MEDS: Morphine 4 MG/ML VIAL (1 ml) IV PRN ×3 (05:49→12:33)
[2021-10-15] MEDS: fentaNYL Patch Check Q Shift NOTE FOLLOW UP SCH ×2 (07:05→19:18)
[2021-10-15 07:36] VITALS: BP 131/78
[2021-10-15] MEDS: Mometasone/Formoter 200/5 MDI INH SCH ×2 (07:45→19:17)
[2021-10-15] MEDS: SPIRIVA Respimat (tiotropium) 2.5 mcg/inh Inhaler INH SCH (07:47)
[2021-10-15] MEDS: Nicotine PATCH 21 MG/24 HR PATCH TRANSDERM SCH (09:48)
[2021-10-15] MEDS: Senna TAB 8.6 mg TAB PO SCH ×2 (09:49→21:56)
[2021-10-15] MEDS: Nystatin SUSPENSION 100,000 UNITS/ML UDC PO SCH ×4 (09:49→22:00)
[2021-10-15] MEDS: fentaNYL PATCH 25 MCG/HR 1 PATCH TRANSDERM SCH (12:51)
[2021-10-15] MEDS: Enoxaparin 40 MG/0.4 ML SYR SUBCUT SCH (22:03)
[2021-10-16] MEDS: fentaNYL Patch Check Q Shift NOTE FOLLOW UP SCH ×2 (07:01→19:13)
[2021-10-16] MEDS: SPIRIVA Respimat (tiotropium) 2.5 mcg/inh Inhaler INH SCH (07:25)
[2021-10-16] MEDS: Mometasone/Formoter 200/5 MDI INH SCH ×2 (07:26→21:02)
[2021-10-16] MEDS: Nystatin SUSPENSION 100,000 UNITS/ML UDC PO SCH ×4 (08:51→21:08)
[2021-10-16] MEDS: Nicotine PATCH 21 MG/24 HR PATCH TRANSDERM SCH (08:51)
[2021-10-16] MEDS: Senna TAB 8.6 mg TAB PO SCH ×2 (08:52→21:08)
[2021-10-16] MEDS: Morphine 4 MG/ML VIAL (1 ml) IV PRN ×4 (10:10→22:47)
[2021-10-16] MEDS: Enoxaparin 40 MG/0.4 ML SYR SUBCUT SCH ×2 (21:04→21:06)
[2021-10-17] MEDS: Morphine 4 MG/ML VIAL (1 ml) IV PRN ×9 (00:37→22:48)
[2021-10-17] MEDS: fentaNYL Patch Check Q Shift NOTE FOLLOW UP SCH ×2 (07:23→18:38)
[2021-10-17] MEDS: Nicotine PATCH 21 MG/24 HR PATCH TRANSDERM SCH (07:37)
[2021-10-17] MEDS: Nystatin SUSPENSION 100,000 UNITS/ML UDC PO SCH ×4 (07:38→20:51)
[2021-10-17] MEDS: Senna TAB 8.6 mg TAB PO SCH ×2 (07:38→20:49)
[2021-10-17] MEDS: SPIRIVA Respimat (tiotropium) 2.5 mcg/inh Inhaler INH SCH (07:58)
[2021-10-17] MEDS: Mometasone/Formoter 200/5 MDI INH SCH ×2 (07:58→19:12)
[2021-10-17] MEDS: Enoxaparin 40 MG/0.4 ML SYR SUBCUT SCH (20:36)
[2021-10-18] MEDS: Morphine 4 MG/ML VIAL (1 ml) IV PRN ×3 (01:02→05:02)
[2021-10-18] MEDS: Mometasone/Formoter 200/5 MDI INH SCH (07:38)
[2021-10-18] MEDS: SPIRIVA Respimat (tiotropium) 2.5 mcg/inh Inhaler INH SCH (07:38)
== END 2021-10-18 06:25 | disposition expired | DRG 917 ==
LOC: ED 17:57 → SUATTDRO 22:35 → EDHOLD 22:35 → ICU 10-09 00:57 → MED 10-09 17:05
PROVIDERS: ADMIT Internal Medicine; ATTEND Internal Medicine